=== PATIENT | female | born 1940 | race Caucasian/White ===

== ENCOUNTER 2017-08-29 09:13 | Outpatient (RCR) | payer MEDICARE, OTHER, SELFPAY ==
[2017-08-29 10:23] LABS: Prothrombin Time (Protime)PT. 41.1 SECONDS (11.7-14.9)
[2017-08-29 10:23] LABS: Absolute Lymphocyte Count 0.59 X10^3/ul (0.83-4.51); Absolute Neutrophil Count 4.7 X10^3/uL (2.0-7.7); Basophil# 0.02 X10^3/uL; Basophil% 0.3 % (0-1); Differential Indicated SCAN CRITERIA MET; Eosinophil# 0.14 X10^3/uL; Eosinophils% 2.2 % (0-5); Hematocrit 37.5 % (37-47); Hemoglobin 12.6 g/dl (12.0-15.0); Lymphocyte # 0.59 X10^3/ul (4.0); Lymphocyte % 9.2 % (19-41); Mean Corp Hgb Conc 33.6 g/gl (32-36); Mean Corpuscular Hgb 32.8 pg (27.0-32.0); Mean Corpuscular Volume 97.7 fL (81-99); Mean Platelet Vol. 10.1 fl (6.2-12.0); Monocyte# 0.95 X10^3/uL; Monocyte% 14.8 % (0-10); Neutrophil # 4.66 X10^3/uL (2.7-7.7); Neutrophil % 72.3 % (47-70); POSITIVE COUNT NO; POSITIVE DIFFERENTIAL YES; POSITIVE MORPHOLOGY NO; Platelet Count 262 K/mm3 (150-450); RBC Distribution Width SD 51.8 fl (35.1-43.9); Red Blood Count 3.84 M/mm3 (4.2-5.4); White Blood Count 6.4 K/mm3 (4.4-11.0)
[2017-08-29 10:26] LABS: International Normalized Ratio 4.5
[2017-08-29 10:46] LABS: ALB/GLOB Ratio 1.2 RATIO (0.9-2.4); AST(SGOT) 30 U/L (15-37); Alanine Aminotransfer ALT/SGPT 36 U/L (12-78); Albumin, Serum 3.7 g/dL (3.4-5.0); Alkaline Phosphatase 123 U/L (45-117); Anion Gap 5 (5-15); BUN 37 mg/dL (7-18); BUN/Creat Ratio 33.6 RATIO (10-20); Chloride 101 mmol/L (98-107); EST Glomerular Filtration Rate 51 mL/min (>60); Est Glom Filt Rate - Afr Amer 62 mL/min (>60); Globulin 3.1 g/dL (2.2-4.2); Glucose 129 mg/dL (70-110); Potassium 4.8 mmol/L (3.5-5.1); Protein, Total 6.8 g/dL (6.4-8.2); Sodium Level 134 mmol/L (136-145)
[2017-09-03 14:35] LABS: Prothrombin Time Fingerstick 28.5 SEC (11.9-14.4)
[2017-09-12 14:26] LABS: Prothrombin Time Fingerstick 39.5 SEC (11.9-14.4)
== END 2017-08-29 09:15 | disposition home or self-care (01) ==
LOC: MTLAB 09:13
PROVIDERS: Internal Medicine Rheumatology; Family Provider Family Medicine Geriatric Medicine; PCP Family Medicine Geriatric Medicine; Visit Provider Internal Medicine Cardiovascular Disease
DX: I48.91 Unspecified atrial fibrillation (principal); M06.4 Inflammatory polyarthropathy; M79.7 Fibromyalgia; M17.0 Bilateral primary osteoarthritis of knee; M70.62 Trochanteric bursitis, left hip; M21.40 Flat foot [pes planus] (acquired), unspecified foot; K21.0 Gastro-esophageal reflux disease with esophagitis; D49.3 Neoplasm of unspecified behavior of breast; I10 Essential (primary) hypertension; E78.5 Hyperlipidemia, unspecified; C43.62 Malignant melanoma of left upper limb, including shoulder; Z79.899 Other long term (current) drug therapy
CPT/HCPCS: 36415; 36416; 80053; 85025; 85610

== ENCOUNTER → 2017-09-11 11:37 | Outpatient (CLI) | payer MEDICARE, OTHER, SELFPAY ==
--- NOTE | 2017-09-11 11:40 | RAD_ITS ---
STUDY: X-RAY - CERVICAL SPINE REASON FOR EXAM: Female, 76 years old. Right-sided neck pain one month after fall. TECHNIQUE: 4 view(s) of the cervical spine were obtained. COMPARISON: None FINDINGS: There are degenerative changes of the anterior atlantoaxial articulation. Normal odontoid process. There is straightening of the normal cervical lordosis. There is an 18 degree levoscoliosis centered at C3-4. There is multi-level endplate spondylosis. There is multi-level degenerative disc disease with multilevel disc space narrowing. There are mild to moderate multilevel degenerative arthroses of the bilateral facet joints. The prevertebral soft tissue structures are unremarkable. There is no demonstrated fracture of the cervical spine. Minor retrolisthesis of C6 on C7. RAD/Cerv Spine 2 or 3 Views IMPRESSION: Multilevel degenerative changes of the cervical spine, as described. Electronically Signed: Raji Barnett MD at 15:12 EST , Service support ,
== END ==
PROVIDERS: Family Provider Family Medicine Geriatric Medicine; PCP Family Medicine Geriatric Medicine; Visit Provider Family Medicine Geriatric Medicine
DX: M48.02 Spinal stenosis, cervical region (principal)
CPT/HCPCS: 72040

== ENCOUNTER 2017-10-08 10:31 | Outpatient (RCR) | payer MEDICARE, OTHER, SELFPAY ==
[2017-10-08 12:32] LABS: Absolute Lymphocyte Count 0.72 X10^3/ul (0.83-4.51); Absolute Neutrophil Count 5.9 X10^3/uL (2.0-7.7); Basophil# 0.01 X10^3/uL; Basophil% 0.1 % (0-1); Eosinophil# 0.05 X10^3/uL; Eosinophils% 0.7 % (0-5); Hematocrit 35.5 % (37-47); Hemoglobin 11.7 g/dl (12.0-15.0); Lymphocyte # 0.72 X10^3/ul (4.0); Lymphocyte % 10.3 % (19-41); Mean Corpuscular Hgb 33.7 pg (27.0-32.0); Mean Corpuscular Volume 102.3 fL (81-99); Mean Platelet Vol. 10.8 fl (6.2-12.0); Monocyte# 0.36 X10^3/uL; Monocyte% 5.1 % (0-10); Neutrophil # 5.87 X10^3/uL (2.7-7.7); Neutrophil % 83.7 % (47-70); Platelet Count 163 K/mm3 (150-450); RBC Distribution Width CV 14.7 % (11.6-14.6); RBC Distribution Width SD 53.3 fl (35.1-43.9); Red Blood Count 3.47 M/mm3 (4.2-5.4)
[2017-10-08 12:36] LABS: POSITIVE COUNT NO; POSITIVE DIFFERENTIAL NO; POSITIVE MORPHOLOGY NO
[2017-10-08 12:43] LABS: International Normalized Ratio 2.8; Prothrombin Time (Protime)PT. 28.5 SECONDS (11.7-14.9)
[2017-10-08 12:45] LABS: Anion Gap 8 (5-15); BUN 32 mg/dL (7-18); BUN/Creat Ratio 28.6 RATIO (10-20); Calcium,Total 9.6 mg/dL (8.5-10.1); Chloride 98 mmol/L (98-107); Creatinine, Serum 1.12 mg/dL (0.55-1.02); EST Glomerular Filtration Rate 50 mL/min (>60); Est Glom Filt Rate - Afr Amer 61 mL/min (>60); Glucose 235 mg/dL (74-106); Potassium 4.8 mmol/L (3.5-5.1); Sodium Level 135 mmol/L (136-145)
== END 2017-10-08 16:27 | disposition home or self-care (01) ==
LOC: MTLAB 10:31
PROVIDERS: Internal Medicine Cardiovascular Disease; Family Provider Family Medicine Geriatric Medicine; PCP Family Medicine Geriatric Medicine; Visit Provider Family Medicine Geriatric Medicine
DX: I48.0 Paroxysmal atrial fibrillation (principal); Z79.899 Other long term (current) drug therapy; D64.9 Anemia, unspecified; E87.1 Hypo-osmolality and hyponatremia
CPT/HCPCS: 36415; 36416; 80048; 85025; 85610

== ENCOUNTER → 2017-11-04 13:45 | Outpatient (CLI) | payer MEDICARE, OTHER, SELFPAY ==
[2017-11-04 14:18] LABS: Absolute Lymphocyte Count 0.89 X10^3/ul (0.83-4.51); Absolute Neutrophil Count 4.1 X10^3/uL (2.0-7.7); Basophil# 0.02 X10^3/uL; Basophil% 0.3 % (0-1); Eosinophil# 0.11 X10^3/uL; Eosinophils% 1.9 % (0-5); Hematocrit 36.1 % (37-47); Hemoglobin 11.5 g/dl (12.0-15.0); Lymphocyte # 0.89 X10^3/ul (4.0); Lymphocyte % 15.4 % (19-41); Mean Corp Hgb Conc 31.9 g/gl (32-36); Mean Corpuscular Hgb 32.4 pg (27.0-32.0); Mean Corpuscular Volume 101.7 fL (81-99); Mean Platelet Vol. 10.7 fl (6.2-12.0); Monocyte# 0.63 X10^3/uL; Monocyte% 10.9 % (0-10); Neutrophil # 4.12 X10^3/uL (2.7-7.7); Neutrophil % 71.5 % (47-70); Platelet Count 179 K/mm3 (150-450); RBC Distribution Width CV 13.4 % (11.6-14.6); RBC Distribution Width SD 49.8 fl (35.1-43.9); Red Blood Count 3.55 M/mm3 (4.2-5.4); White Blood Count 5.8 K/mm3 (4.4-11.0)
[2017-11-04 14:19] LABS: POSITIVE COUNT NO; POSITIVE DIFFERENTIAL NO; POSITIVE MORPHOLOGY NO
[2017-11-04 14:41] LABS: ALB/GLOB Ratio 1.3 RATIO (0.9-2.4); AST(SGOT) 25 U/L (15-37); Alanine Aminotransfer ALT/SGPT 26 U/L (13-56); Albumin, Serum 3.7 g/dL (3.2-5.0); Alkaline Phosphatase 89 U/L (45-117); Anion Gap 5 (5-15); BUN 30 mg/dL (7-18); BUN/Creat Ratio 28.6 RATIO (10-20); Calcium,Total 8.9 mg/dL (8.5-10.1); Chloride 98 mmol/L (98-107); Creatinine, Serum 1.05 mg/dL (0.55-1.02); EST Glomerular Filtration Rate 54 mL/min (>60); Est Glom Filt Rate - Afr Amer 65 mL/min (>60); Globulin 2.8 g/dL (2.2-4.2); Glucose 118 mg/dL (74-106); Potassium 4.5 mmol/L (3.5-5.1); Protein, Total 6.5 g/dL (6.4-8.2); Sodium Level 134 mmol/L (136-145); Thyroid Stim Hormone (TSH) 4.98 uIU/mL (0.358-3.74)
[2017-11-05 08:31] LABS: Vitamin D,25 Hydroxy 58.2 ng/mL (29.95-100.01)
== END ==
PROVIDERS: Family Provider Family Medicine Geriatric Medicine; PCP Family Medicine Geriatric Medicine; Visit Provider Family Medicine Geriatric Medicine
DX: E55.9 Vitamin D deficiency, unspecified (principal); I10 Essential (primary) hypertension
CPT/HCPCS: 36415; 80053; 82306; 84443; 85025

== ENCOUNTER 2017-11-07 13:26 | Outpatient (RCR) | payer MEDICARE, OTHER, SELFPAY ==
[2017-10-31 15:00] LABS: Prothrombin Time Fingerstick 48.6 SEC (11.9-14.4)
[2017-10-31 16:26] LABS: Prothrombin Time (Protime)PT. 37.6 SECONDS (11.7-14.9)
[2017-10-31 16:29] LABS: International Normalized Ratio 3.8
[2017-11-07 13:45] LABS: Prothrombin Time Fingerstick 33.1 SEC (11.9-14.4)
== END 2017-11-07 14:00 | disposition home or self-care (01) ==
LOC: MTLAB 13:26
PROVIDERS: Family Provider Family Medicine Geriatric Medicine; PCP Family Medicine Geriatric Medicine; Visit Provider Internal Medicine Cardiovascular Disease
DX: I48.0 Paroxysmal atrial fibrillation (principal); Z79.899 Other long term (current) drug therapy
CPT/HCPCS: 36415; 36416; 85610

== ENCOUNTER 2017-12-12 13:53 | Outpatient (RCR) | payer MEDICARE, OTHER, SELFPAY ==
[2017-11-21 13:36] LABS: Prothrombin Time Fingerstick 34.3 SEC (11.9-14.4)
[2017-12-12 15:54] LABS: Absolute Neutrophil Count 4.8 X10^3/uL (2.0-7.7); Basophil# 0.02 X10^3/uL; Basophil% 0.3 % (0-1); Eosinophil# 0.14 X10^3/uL; Eosinophils% 2.1 % (0-5); Hematocrit 41.1 % (37-47); Hemoglobin 13.2 g/dl (12.0-15.0); Lymphocyte % 14.8 % (19-41); Mean Corp Hgb Conc 32.1 g/gl (32-36); Mean Corpuscular Hgb 31.7 pg (27.0-32.0); Mean Corpuscular Volume 98.6 fL (81-99); Mean Platelet Vol. 11.3 fl (6.2-12.0); Monocyte# 0.76 X10^3/uL; Monocyte% 11.3 % (0-10); Neutrophil # 4.82 X10^3/uL (2.7-7.7); Neutrophil % 71.4 % (47-70); Platelet Count 189 K/mm3 (150-450); RBC Distribution Width CV 12.5 % (11.6-14.6); Red Blood Count 4.17 M/mm3 (4.2-5.4); White Blood Count 6.8 K/mm3 (4.4-11.0)
[2017-12-12 15:57] LABS: ALB/GLOB Ratio 1.3 RATIO (0.9-2.4); AST(SGOT) 38 U/L (15-37); Alanine Aminotransfer ALT/SGPT 36 U/L (13-56); Albumin, Serum 3.9 g/dL (3.2-5.0); Alkaline Phosphatase 126 U/L (45-117); Anion Gap 8 (5-15); BUN 25 mg/dL (7-18); BUN/Creat Ratio 21.7 RATIO (10-20); Calcium,Total 8.9 mg/dL (8.5-10.1); Chloride 102 mmol/L (98-107); Creatinine, Serum 1.15 mg/dL (0.55-1.02); EST Glomerular Filtration Rate 49 mL/min (>60); Est Glom Filt Rate - Afr Amer 59 mL/min (>60); Globulin 3.1 g/dL (2.2-4.2); Glucose 155 mg/dL (74-106); Potassium 4.4 mmol/L (3.5-5.1); Sodium Level 139 mmol/L (136-145)
[2017-12-12 16:03] LABS: POSITIVE COUNT NO; POSITIVE DIFFERENTIAL NO; POSITIVE MORPHOLOGY NO
[2017-12-12 16:29] LABS: International Normalized Ratio 3.1; Prothrombin Time (Protime)PT. 32.2 SECONDS (11.7-14.9)
== END 2017-12-12 14:00 | disposition home or self-care (01) ==
LOC: MTLAB 13:53
PROVIDERS: Family Provider Family Medicine Geriatric Medicine; PCP Family Medicine Geriatric Medicine; Visit Provider Internal Medicine Cardiovascular Disease
DX: I48.0 Paroxysmal atrial fibrillation (principal); Z79.899 Other long term (current) drug therapy
CPT/HCPCS: 36415; 36416; 80053; 85025; 85610

== ENCOUNTER 2018-01-09 14:14 | Outpatient (RCR) | payer MEDICARE, OTHER, SELFPAY ==
[2018-01-09 14:31] LABS: Prothrombin Time Fingerstick 34.8 SEC (11.9-14.4)
== END 2018-01-09 15:00 | disposition home or self-care (01) ==
LOC: MTLAB 14:14
PROVIDERS: Family Provider Family Medicine Geriatric Medicine; PCP Family Medicine Geriatric Medicine; Visit Provider Internal Medicine Cardiovascular Disease
DX: I48.91 Unspecified atrial fibrillation (principal); Z79.01 Long term (current) use of anticoagulants
CPT/HCPCS: 36416; 85610

== ENCOUNTER 2018-02-09 13:13 | Outpatient (RCR) | payer MEDICARE, OTHER, SELFPAY | END 2018-02-09 14:00 | disposition home or self-care (01) | LOC: MTLAB 13:13 | PROVIDERS: Family Provider Family Medicine Geriatric Medicine; PCP Family Medicine Geriatric Medicine; Visit Provider Internal Medicine Cardiovascular Disease | DX: I48.91 Unspecified atrial fibrillation (principal); Z79.899 Other long term (current) drug therapy | CPT/HCPCS: 36416; 85610 ==

== ENCOUNTER → 2018-02-13 10:15 | Outpatient (CLI) | payer MEDICARE, OTHER, SELFPAY ==
[2018-02-13 12:34] LABS: Absolute Lymphocyte Count 0.54 X10^3/ul (0.83-4.51); Absolute Neutrophil Count 4.9 X10^3/uL (2.0-7.7); Basophil# 0.02 X10^3/uL; Basophil% 0.3 % (0-1); Eosinophil# 0.06 X10^3/uL; Hematocrit 39.9 % (37-47); Hemoglobin 12.8 g/dl (12.0-15.0); Lymphocyte # 0.54 X10^3/ul (4.0); Lymphocyte % 8.6 % (19-41); Mean Corp Hgb Conc 32.1 g/gl (32-36); Mean Corpuscular Hgb 29.7 pg (27.0-32.0); Mean Corpuscular Volume 92.6 fL (81-99); Mean Platelet Vol. 11.2 fl (6.2-12.0); Monocyte# 0.72 X10^3/uL; Monocyte% 11.5 % (0-10); Neutrophil # 4.91 X10^3/uL (2.7-7.7); Neutrophil % 78.4 % (47-70); Platelet Count 120 K/mm3 (150-450); RBC Distribution Width CV 13.7 % (11.6-14.6); RBC Distribution Width SD 45.4 fl (35.1-43.9); Red Blood Count 4.31 M/mm3 (4.2-5.4); White Blood Count 6.3 K/mm3 (4.4-11.0)
[2018-02-13 12:38] LABS: Differential Indicated SCAN CRITERIA MET; POSITIVE COUNT NO; POSITIVE DIFFERENTIAL YES; POSITIVE MORPHOLOGY NO
[2018-02-13 12:45] LABS: ALB/GLOB Ratio 1.2 RATIO (0.9-2.4); AST(SGOT) 28 U/L (15-37); Alanine Aminotransfer ALT/SGPT 33 U/L (13-56); Albumin, Serum 3.7 g/dL (3.2-5.0); Alkaline Phosphatase 119 U/L (45-117); Anion Gap 7 (5-15); BUN 24 mg/dL (7-18); BUN/Creat Ratio 24.1 RATIO (10-20); Calcium,Total 9.5 mg/dL (8.5-10.1); Chloride 98 mmol/L (98-107); EST Glomerular Filtration Rate 57 mL/min (>60); Est Glom Filt Rate - Afr Amer 69 mL/min (>60); Globulin 3.1 g/dL (2.2-4.2); Glucose 95 mg/dL (74-106); Potassium 4.4 mmol/L (3.5-5.1); Protein, Total 6.8 g/dL (6.4-8.2); Sodium Level 136 mmol/L (136-145)
[2018-02-13 13:00] LABS: International Normalized Ratio 3.1
== END ==
PROVIDERS: Internal Medicine Cardiovascular Disease; Family Provider Family Medicine Geriatric Medicine; PCP Family Medicine Geriatric Medicine; Visit Provider Internal Medicine Rheumatology
DX: M06.4 Inflammatory polyarthropathy (principal); Z79.899 Other long term (current) drug therapy; M79.7 Fibromyalgia; M17.0 Bilateral primary osteoarthritis of knee; M70.62 Trochanteric bursitis, left hip; K21.0 Gastro-esophageal reflux disease with esophagitis; M21.40 Flat foot [pes planus] (acquired), unspecified foot; I48.91 Unspecified atrial fibrillation; D49.3 Neoplasm of unspecified behavior of breast; I10 Essential (primary) hypertension; E78.5 Hyperlipidemia, unspecified; C43.62 Malignant melanoma of left upper limb, including shoulder
CPT/HCPCS: 36415; 80053; 85025; 85610

== ENCOUNTER 2018-02-20 14:19 | Outpatient (RCR) | payer MEDICARE, OTHER, SELFPAY ==
[2018-02-20 16:03] LABS: Prothrombin Time (Protime)PT. 36.5 SECONDS (11.7-14.9)
[2018-02-20 16:16] LABS: International Normalized Ratio 3.6
== END 2018-02-20 16:00 ==
LOC: MTLAB 14:19
PROVIDERS: Family Provider Family Medicine Geriatric Medicine; PCP Family Medicine Geriatric Medicine; Visit Provider Internal Medicine Cardiovascular Disease
DX: I48.91 Unspecified atrial fibrillation (principal); Z79.899 Other long term (current) drug therapy
CPT/HCPCS: 36415; 36416; 85610

== ENCOUNTER → 2018-03-20 13:57 | Outpatient (CLI) | payer MEDICARE, OTHER, SELFPAY ==
[2018-03-20 16:10] LABS: International Normalized Ratio 3.4; Prothrombin Time (Protime)PT. 34.4 SECONDS (11.7-14.9)
[2018-03-20 16:27] LABS: Thyroid Stim Hormone (TSH) 6.83 uIU/mL (0.358-3.74)
== END ==
PROVIDERS: Family Provider Family Medicine Geriatric Medicine; PCP Family Medicine Geriatric Medicine; Visit Provider Family Medicine Geriatric Medicine
DX: E03.9 Hypothyroidism, unspecified (principal); I48.91 Unspecified atrial fibrillation; Z79.01 Long term (current) use of anticoagulants
CPT/HCPCS: 36415; 84443; 85610

== ENCOUNTER 2018-04-02 00:10 | Observation (INO) | payer MEDICARE, OTHER, SELFPAY ==
[2018-04-02] VITALS (8 sets, daily range): BP systolic 118–136; BP diastolic 59–69; PULSE 70–91; RESP 15–22; TEMP 36.7–37.1; O2SAT 98–99; BMI 21.4; BMI 21.2; BMI 21.3
--- NOTE | 2018-04-02 00:42 | ED.VISSUMM ---
- ER Visit Summary Date of Service: 04/02/18 Chief Complaint: [] Chest pain and back pain History of Present Illness: The patient is a 77 F complaining of chest pain and back pain that started approximately 2 and half hours ago at rest. Is a sharp pain moderate severity. No home treatment. Last stress test a year ago. She feels it in the center of her chest and through her body and between her shoulder blades. She has never had aortic dissection. She has a history of atrial fib and has an ICD pacemaker. Her mitral valve has been replaced. She does have chronic CHF. She has never had a heart attack. Last stress test was a year ago. Physical Examination: [] Vital signs reviewed General: Well-nourished well-developed Head: Normocephalic atraumatic Eyes: Pupils equal round and reactive to light extraocular movements intact ENT: TMs clear no hemotympanum no trauma Neck: Nontender full range of motion Cardiovascular: Regular rate rhythm no murmurs normal S1-S2 Respiratory: No distress clear to auscultation bilaterally chest nontender Abdomen: Soft nontender nondistended normal bowel sounds no masses Back: Nontender no CVA tenderness Extremities: Nontender active range of motion ?4 extremities no trauma Skin: Normal color no trauma Neuro alert oriented cranial nerves II through XII intact normal strength sensation reflexes Test Results: [] Emergency Department Course and Treatment: [] EKG shows circular paced rhythm at a rate of 85. Lab work and chest x-ray obtained. Patient given oral aspirin and morphine for her symptoms. This did help her pain significantly. She needed a second dose of morphine however. CBC shows a white count of 14.5. Chemistries normal except sodium 132, BUN 37, glucose 208. INR 3.1 therapeutic. Troponin -0.02. Chest x-ray shows nothing acute. At this time patient has chest pain. I feel she should be admitted for further evaluation and treatment of the above. I have a low suspicion for dissection. The patient stated she cannot get IV dye. I do not feel she needs an urgent transesophageal echo. This will be discussed with the hospitalist and she will be admitted. Treatment Plan: [] Disposition: [] Impression: [] Chest pain with radiation to the back This note was generated with [employer] dictation software. It may contain incorrect words, spelling, and punctuation that were not noted in review of the chart prior to signing ED Disposition - Plan for ED Patient: Chief Complaint: Chest Pain Referrals: Romie Landeros Chi, MD [Primary Care Provider] -
[2018-04-02] MEDS: Morphine 4 MG/ML Syringe IV ×2 (00:46→01:15)
[2018-04-02] MEDS: Aspirin 81 MG TAB.CHEW 324 MG PO (00:46)
[2018-04-02 00:49] LABS: Absolute Lymphocyte Count 1.91 X10^3/ul (0.83-4.51); Absolute Neutrophil Count 10.8 X10^3/uL (2.0-7.7); Eosinophil# 0.14 X10^3/uL; Hematocrit 42.6 % (37-47); Hemoglobin 14.4 g/dl (12.0-15.0); Lymphocyte # 1.91 X10^3/ul (4.0); Lymphocyte % 14.1 % (19-41); Mean Corp Hgb Conc 33.8 g/gl (32-36); Mean Corpuscular Hgb 29.8 pg (27.0-32.0); Mean Corpuscular Volume 88.2 fL (81-99); Mean Platelet Vol. 11.2 fl (6.2-12.0); Monocyte# 0.58 X10^3/uL; Monocyte% 4.3 % (0-10); Neutrophil # 10.82 X10^3/uL (2.7-7.7); Neutrophil % 80.2 % (47-70); Platelet Count 199 K/mm3 (150-450); RBC Distribution Width CV 14.9 % (11.6-14.6); RBC Distribution Width SD 47.7 fl (35.1-43.9); Red Blood Count 4.83 M/mm3 (4.2-5.4); White Blood Count 13.5 K/mm3 (4.4-11.0)
[2018-04-02 00:50] LABS: POSITIVE COUNT NO; POSITIVE DIFFERENTIAL NO; POSITIVE MORPHOLOGY NO
[2018-04-02 01:30] LABS: International Normalized Ratio 3.1; Prothrombin Time (Protime)PT. 32.3 SECONDS (11.7-14.9)
[2018-04-02 01:34] LABS: Anion Gap 4 (5-15); BUN 37 mg/dL (7-18); BUN/Creat Ratio 36.6 RATIO (10-20); Calcium,Total 9.1 mg/dL (8.5-10.1); Chloride 98 mmol/L (98-107); Creatinine, Serum 1.01 mg/dL (0.55-1.02); EST Glomerular Filtration Rate 56 mL/min (>60); Est Glom Filt Rate - Afr Amer 68 mL/min (>60); Estimated Creatinine Clearance 36.89 ml/min; Glucose 208 mg/dL (74-106); Potassium 5.1 mmol/L (3.5-5.1); Sodium Level 132 mmol/L (136-145)
--- NOTE | 2018-04-02 02:33 | NURSING ---
0225 Called Per ED charge nurse, ok for patient to come to floor.
--- NOTE | 2018-04-02 02:45 | PCM.HP.STD ---
Problem List (1) Chest pain Status: Acute (2) Atrial fibrillation Status: Chronic (3) Atrial flutter Status: Chronic (4) Dilated cardiomyopathy Status: Chronic History of Present Illness Date of Admission: 04/02/18 Chief Complaint: Chest pain The patient is a 77 year old F with a significant history of former tobacco use; hypertension, atrial fibrillation/atrial flutter status post ablation; permanent pacemaker with defibrillation; mechanical mitral valve; chronic anticoagulation with Coumadin; systolic heart failure with last ejection fraction 20%; left breast cancer x2 status post mastectomy,muscle removal and reconstruction, and radiation; who presents with progressively worsening chest pain while at rest. Her chest pain started about 1 hour prior to arrival at emergency department. Her chest pain radiated to her back. She denied any diaphoresis, nausea or vomiting. The emergency department doctor wanted to do a CT scan of her chest with contrast but because of a reported allergy to contrast; CT scan of the chest could not be done. Patient reports that she has seizures and low blood pressure with IV contrast. Patient had a stress test last year and it was unremarkable. She follows up with Dr. Hayden. Past Medical History Past Medical History (Chronic Problems): Chronic Problems (Last Reviewed 02/04/18 @ 15:15 by Adrianne Hoover) Chronic systolic congestive heart failure (Chronic) Atrial fibrillation (Chronic) Atrial flutter (Chronic) Dilated cardiomyopathy (Chronic) Presence of implantable cardioverter-defibrillator (ICD) (Chronic) History of mitral valve replacement (Chronic ~06/1997) 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92 Dilated cardiomyopathy (Chronic) I42.0 History of mitral valve replacement (Chronic) Onset Date: ~06/1997 Z98.890, Z95.2 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) I47.2 USP current use of 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) Z79.01 Anxiety states (Chronic) F41.1 Cardiac pacemaker (Chronic) Z95.0 Type II diabetes mellitus, uncontrolled (Chronic) E11.65 History of esophageal reflux (Chronic) Z87.19 History of mitral valve disorder (Chronic) Z86.79 HLD (hyperlipidemia) (Chronic) E78.5 HTN (hypertension) (Chronic) I10 Fibromyalgia M79.7 History of breast cancer Z85.3 Allergies HERMILO Inhibitors Allergy (Verified 04/02/18 00:13) Unknown amiodarone Allergy (Verified 04/02/18 00:13) Unknown Iodinated Contrast- Oral and IV Dye [CONTRASTS] Adverse Reaction (Verified 04/02/18 00:13) I JUMP AROUND ON THE TABLE iodine Adverse Reaction (Verified 04/02/18 00:13) I JUMP AND FLOP AROUND ON THE TABLE Home Medications: Ambulatory Orders Medication Instructions Recorded Carvedilol [Coreg] 25 mg PO BID 03/28/15 Furosemide [Lasix] 40 mg PO DAILY 03/28/15 Lorazepam [Ativan] 0.5 mg PO DAILY PRN PRN 03/28/15 traMADol [Ultram (G)] 50 mg PO BID PRN 03/28/15 Aspirin [Aspirin, Baby] 81 mg PO DAILY@0800 08/01/17 Multivitamin [Daily Multiple 1 ea PO DAILY 08/01/17 Vitamin] Spironolactone 25 mg PO DAILY 08/01/17 calcium phosphate-vitamin D3 250 1 tab PO DAILY ea 08/04/17 mg calcium-500 unit chewable tablet thyroid (pork) 15 mg tablet 45 mg PO DAILY 08/04/17 pravastatin 20 mg tablet 20 mg PO QHS #90 tab 08/25/17 folic acid 1 mg tablet 1 mg PO DAILY tab 02/04/18 potassium chloride ER 10 mEq 10 meq PO BID tab 02/04/18 tablet,extended release warfarin 5 mg tablet 5 mg PO .COMPLEX #90 tab 03/03/18 Surgical History: Surgical History (Last Reviewed 04/02/18 @ 07:43 by Williams Yousif MD) Presence of implantable cardioverter-defibrillator (ICD) (Chronic) Z95.810 History of breast implant Z98.82 History of knee surgery Z98.890 History of mastectomy Z90.10 Left History of tonsillectomy and adenoidectomy Z98.890 Surgical History: pacemaker implantation Lives: Spouse/ Significant Other Smoking Status: Former smoker Tobacco Use: Non-smoker Alcohol: Rare Drugs: None - *Family History Maternal Family History: Family History (Last Updated 04/02/18 @ 03:50 by Williams Yousif MD) Father Hypertension Cancer Mother Cancer Hypertension Review of Systems Constitutional: Denies: Chills, Fever, Weight Change Eyes: Denies: Pain HEENT: Denies: Head Aches, Sinus Congestion, Sinus Drainage Cardiovascular: Reports: Chest Pain Respiratory: Denies: Cough, Shortness of breath at rest, Sputum production Gastrointestinal: Denies: Abdominal Pain, Nausea, Vomiting Genitourinary: Denies: Dysuria Musculoskeletal: Reports: Back Pain Skin: Denies: Rash, Wounds Neurological: Denies: Numbness, Tingling, Focal weakness Psychiatric: Denies: Anxiety, Depression, Homicidal Ideations, Suicidal Ideations Hematologic/ Lymphatic: Denies: Easy Bruising, Easy Bleeding VTE Information - Inpt Only VTE Present on Admission: No VTE Mechan Device Prophylaxis: None VTE Pharm Prophylaxis ordered?: No Reason prophylaxis not ordered:: Treatment Not Indicated - Already on anticoagulation with Coumadin for a permanent mechanical mitral valve and atrial fibrillation Patient Problems: Active and Suspected Problems (Last Reviewed 02/04/18 @ 15:15 by Adrianne Hoover) Chest pain (Acute) - Physical Exam General: Alert, Oriented x3, Cooperative HEENT: Atraumatic, PERRLA, EOMI, Normocephalic Neck: Supple, No JVD, Negative Carotid Bruits Lungs: Clear to auscultation, Normal air movement, - - Pacemaker-like object in the right upper chest. Cardiovascular: Regular rate, - - Mechanical click sound Abdomen: Bowel Sounds Present, Soft, Non Tender Extremities: No edema, Capillary Refill Less than 3 Seconds Skin: No rashes, No breakdown Musculoskeletal: No Tenderness to Palpation of Joints or Extremities Neurological: Cranial nerves II-XII grossly intact Psych/Mental Status: Normal Affect, Appropriate Vital Signs Temp Pulse Resp BP Pulse Ox 98.1 F 91 22 H 136/69 H 99 04/02/18 00:11 04/02/18 00:11 04/02/18 00:11 04/02/18 00:11 04/02/18 00:43 Assessment/Plan All Active Problems (Last Reviewed 02/04/18 @ 15:15 by Adrianne Hoover) Chest pain (Acute) Atrial dysrhythmia (Acute) Ventricular tachycardia (Acute) The patient is a 77 year old F with a significant history of former tobacco use; hypertension, atrial fibrillation/atrial flutter status post ablation; permanent pacemaker with defibrillation; mechanical mitral valve; chronic anticoagulation with Coumadin; systolic heart failure with last ejection fraction 20%; left breast cancer x2 status post mastectomy,muscle removal and reconstruction, and radiation; who presents with progressively worsening chest pain while at rest. Chest pain Troponin at emergency department was negative. EKG showed paced rhythm. Patient received aspirin 324mg and morphine 8 mg at emergency department Aspirin 81mg daily. Home pravastatin continued Nitroglycerin sublingual and morphine IV as needed Serial cardiac enzymes ordered. Because of her many risk factors of cardiac disease will consult cardiology for further stratification and management. Coreg continued Systolic heart failure Coreg and spironolactone continue Lasix continued. Home potassium held since her potassium was 5.1 on admission. Repeat potassium ordered for noon. Osteoarthritis Tramadol continued Atrial fibrillation Coreg and Coumadin Daily PT/INR Mechanical Mitral valve Coumadin continued Hypertension Spironolactone and Coreg continued as above Hypothyroidism Carriere thyroid continued Code Visit Inpatient E&M: 70110 Init Hosp L3
[2018-04-02] MEDS: traMADol 50 MG Tablet PO (05:33)
--- NOTE | 2018-04-02 09:26 | PCM.CONS.C ---
Problem List (1) Chest pain Status: Acute (2) Dilated cardiomyopathy Status: Chronic (3) Chronic systolic congestive heart failure Status: Chronic (4) History of mitral valve replacement Status: Chronic Comment: [facility] Driss #27mm 06/1997 (5) Atrial dysrhythmia Status: Acute (6) Ventricular tachycardia Status: Acute (7) Presence of implantable cardioverter-defibrillator (ICD) Status: Chronic (8) HLD (hyperlipidemia) Status: Chronic Qualifiers: Hyperlipidemia type: unspecified Qualified Code(s): E78.5 - Hyperlipidemia, unspecified (9) HTN (hypertension) Status: Chronic Qualifiers: Hypertension type: essential hypertension Qualified Code(s): I10 - Essential (primary) hypertension (10) Type II diabetes mellitus, uncontrolled Status: Chronic Reason for Consult Date of Consultation: 04/02/18 History of Present Illness: The patient is a 77 year old white female with a past medical history of a non-CAD related cardiomyopathy, chronic systolic CHF, status post mitral valve replacement-mechanical, atrial dysrhythmia, ventricular tachycardia, ICD, hyperlipidemia, hypertension, and diabetes mellitus who is referred for evaluation of chest pain. She states yesterday evening, when preparing for bed, she felt a epigastric/lower sternal chest discomfort which appeared to radiate towards her back. It did not radiate towards her neck, jaw, or upper extremities. She denied any acute shortness of breath or dyspnea. She denied any associated nausea, emesis, or diaphoresis. She states she felt warm. Her brought her to the emergency department for further evaluation. She states she was evaluated, treated with morphine sulfate, and her discomfort subsequently dissipated. She did have troponin I levels performed. They were indeterminate. Her ECGs have demonstrated a combination of atrial paced rhythm with consideration for voltage criteria for LVH as well as nonspecific ST and T-wave changes versus an underlying AV paced rhythm. She did have a chest x-ray performed. She had postsurgical changes. There did not appear to be any acute changes. Per radiology she was noted to have what was referred to as airspace disease and findings compatible with COPD (please see official report). [] Past Medical History Allergies/Adverse Reactions: Allergies HERMILO Inhibitors Allergy (Verified 04/02/18 00:13) Unknown amiodarone Allergy (Verified 04/02/18 00:13) Unknown Iodinated Contrast- Oral and IV Dye [CONTRASTS] Adverse Reaction (Verified 04/02/18 00:13) I JUMP AROUND ON THE TABLE iodine Adverse Reaction (Verified 04/02/18 00:13) I JUMP AND FLOP AROUND ON THE TABLE Home Medications: Ambulatory Orders Medication Instructions Recorded Carvedilol [Coreg] 25 mg PO BID 03/28/15 Furosemide [Lasix] 40 mg PO DAILY 03/28/15 Lorazepam [Ativan] 0.5 mg PO DAILY PRN PRN 03/28/15 traMADol [Ultram (G)] 50 mg PO BID PRN 03/28/15 Aspirin [Aspirin, Baby] 81 mg PO DAILY@0800 08/01/17 Multivitamin [Daily Multiple 1 ea PO DAILY 08/01/17 Vitamin] Spironolactone 25 mg PO DAILY 08/01/17 calcium phosphate-vitamin D3 250 1 tab PO DAILY ea 08/04/17 mg calcium-500 unit chewable tablet thyroid (pork) 15 mg tablet 45 mg PO DAILY 08/04/17 pravastatin 20 mg tablet 20 mg PO QHS #90 tab 08/25/17 folic acid 1 mg tablet 1 mg PO DAILY tab 02/04/18 potassium chloride ER 10 mEq 10 meq PO BID tab 02/04/18 tablet,extended release warfarin 5 mg tablet 5 mg PO .COMPLEX #90 tab 03/03/18 Past Medical History (Chronic Problems): Chronic Problems (Last Reviewed 04/02/18 @ 07:43 by Williams Yousif MD) Chronic systolic congestive heart failure (Chronic) Atrial fibrillation (Chronic) Atrial flutter (Chronic) Dilated cardiomyopathy (Chronic) Presence of implantable cardioverter-defibrillator (ICD) (Chronic) History of mitral valve replacement (Chronic ~06/1997) 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) Anxiety states (Chronic) Cardiac pacemaker (Chronic) Type II diabetes mellitus, uncontrolled (Chronic) History of esophageal reflux (Chronic) History of mitral valve disorder (Chronic) HLD (hyperlipidemia) (Chronic) HTN (hypertension) (Chronic) Surgical History: pacemaker implantation - *Family History Maternal Family History: Family History (Last Updated 04/02/18 @ 03:50 by Williams Yousif MD) Father Hypertension Cancer Mother Cancer Hypertension Lives: Spouse/ Significant Other Smoking Status: Former smoker Tobacco Use: Non-smoker Alcohol: Rare Drugs: None Review of Systems - Review of Systems General: Denies: Fever, Night Sweats, Fatigue Cardiovascular: Reports: Chest Discomfort, Chest Discomfort at Rest, Palpitations. Denies: Shortness of Breath, Orthopnea, PND, Peripheral Edema, Lightheadedness, Dizziness, Near Syncope, Syncope Respiratory: Denies: Cough, Sputum Production, Hemoptysis Gastrointestinal: Denies: Hematemesis, Hematochezia, Melena Genitourinary: Denies: Dysuria, Hematuria Skin: Denies: Rash Subjectve: This is a 77-year-old white female who appears to be resting comfortably at the moment in no acute distress. Objective: Vital Signs Temp Pulse Resp BP Pulse Ox 98.7 F 91 16 118/60 98 04/02/18 08:50 04/02/18 08:50 04/02/18 08:50 04/02/18 08:50 04/02/18 08:50 Oxygen Delivery Method Room Air Weight: 116 lb 3.2 oz Body Mass Index (BMI) 21.2 Intake and Output for Last 24 Hours 03/31/18 04/01/18 04/02/18 23:59 23:59 23:59 Intake Total 0 / 0 Balance 0 / 0 General: Awake, Alert, Oriented x 3, Cooperative, No Acute Distress HEENT: Atraumatic, Normocephalic, PERRL, EOMI, Sclera Non Icteric Oral: Moist Mucosa Neck: Supple, Good ROM, No JVD Chest Wall: Midline Sternotomy Incision Lungs: Clear to auscultation Cardiovascular: Regular Rhythm, Normal S2, [place] Prosthetic S1 Vascular: No Carotid Bruits Abdomen: Bowel Sounds Present, Soft, Non Tender Extremities: No Cyanosis, No Clubbing, No edema Psych/Mental Status: Appropriate, Normal Affect 04/02/18 04:34: Troponin I 0.031 04/02/18 06:55: Troponin I 0.028 Rhythm: Atrial paced rhythm; AV paced rhythm EKG: Atrial paced rhythm; consider voltage criteria for LVH; nonspecific ST and T-wave abnormality ECHO: 06/17/2017: Left ventricle: Dilated: Severe global left ventricular systolic dysfunction: Estimated LVEF 20%: Mild global right ventricular systolic dysfunction: Moderate left atrial enlargement: Stable appearing mechanical mitral valve apparatus: Moderate TR: Mild diffuse aortic valve thickening with trivial AI: Estimated RV systolic pressure of 33 mmHg: ICD wires in the right atrium and right ventricle Stress Test: 05/01/2017: Pharmacologic stress nuclear imaging study: Findings compatible with soft tissue attenuation/artifact and/or detraction secondary to extracardiac/gastrointestinal tracer uptake along with the effects of an underlying electronic ventricular paced rhythm with an area of previous myocardial injury/infarction cannot necessarily be excluded with no myocardial perfusion changes consider diagnostic for stress-induced myocardial ischemia with a gated LVEF of 25% Cardiac Cath: 08/21/2004: [facility]: Elevated left ventricular end-diastolic pressure: Global left ventricular systolic dysfunction with an estimated LVEF of 35-40%: Left main coronary artery normal: LAD status post first diagonal branch with 10% tubular type stenosis: First diagonal branch with ostial 10% tubular type stenosis: LCx tortuous and angiographically normal: RCA with diffuse 10% minimal luminal irregularities: Mitral valve demonstrating a stable appearing [place] mitral valve apparatus without obvious leaflet restriction with notation of trace MR following PVCs and left ventriculogram Electrophysiology study: 08/22/2004: [facility]: Inducible ventricular tachycardia with poor hemodynamic tolerance ICD: [employer] Energen ICD IS-1/DF-1 model number E143 serial #[id number] implanted on 03/31/2015 as a dual-chamber implantable defibrillator Open heart surgery report: [facility]: 06/21/1997: 27 mm [place] mechanical mitral valve CXR: Please see official report Assessment/Plan 1. Chest pain The patient experienced chest discomfort/back discomfort. The etiology is unclear at this time. There are concerns as to whether this represents cardiovascular disease with underlying CAD, based upon her clinical course and indeterminate troponin I levels, versus a non-CAD component based upon her underlying cardiomyopathy, etc., versus a noncardiovascular issue. At the present time she is being monitored. Her cardiac enzymes, rhythm, and electrocardiogram are being followed. She is undergoing repeat pharmacologic stress nuclear imaging study to evaluate for any obvious significant change compared to her previous study that would lead for the need for interruption of her anticoagulation therapy and subsequent repeat diagnostic cardiac catheterization. She needs to be monitored for any noncardiovascular issues that may explain her discomfort as well. This could include the need for a chest CT scan to look for other etiologies of her chest and and back discomfort. 2. Non-CAD related cardiomyopathy The patient has a non-CAD related cardiomyopathy. She has been evaluated noninvasively and invasively in the past. She has been treated medically. She has also received ICD therapy over time. She will continue evaluation and care as deemed appropriate. 3. Chronic systolic CHF The patient does not appear to have any acute on chronic systolic CHF issues at the moment. She will continue to be monitored for any changes. Her cardiovascular status will be reassessed as noted above. She will continue medical therapy in the interim. 4. Atrial and ventricular dysrhythmias The patient has had underlying atrial and ventricular dysrhythmias. From an atrial standpoint there have been concerns of fibrillation/flutter. She has been evaluated by electrophysiology. She has been treated medically. From a ventricular standpoint she has had inducible ventricular tachycardia. Again she has been treated medically. She does have an ICD in place. 5. ICD She does have an ICD in place. She states it did not discharge during her discomfort. It can be reassessed as needed. 6. Hyperlipidemia She will continue medical management as tolerated. 7. Hypertension Her blood pressures will be followed. Her medications can be adjusted as needed. 8. Diabetes mellitus She will need to continue under evaluation care per her primary care physicians for this. The above was discussed and reviewed with the patient. This note was generated with [employer] dictation software. It may contain incorrect words, spelling, and punctuation that were not noted in checking the note before signing.
--- NOTE | 2018-04-02 11:10 | PN_ITS ---
Patient Problems: Active and Suspected Problems (Last Reviewed 04/02/18 @ 07:43 by Williams Yousif MD) Chest pain (Acute) Subjective: Patient seen and examined. Denies further chest pain. States she had palpitations during stress test which have since resolved. No other current complaints. - Physical Exam General: Alert, Oriented x3, Cooperative HEENT: Atraumatic, PERRLA, EOMI, Normocephalic Neck: Supple, No JVD, Negative Carotid Bruits Lungs: Clear to auscultation, Normal air movement Cardiovascular: Regular rate, Regular Rhythm, Normal S1, Normal S2, Murmur - Click Abdomen: Bowel Sounds Present, Soft, Non Tender, Non-Distended Extremities: No clubbing, No cyanosis, No edema, Capillary Refill Less than 3 Seconds Skin: No rashes, No breakdown Musculoskeletal: No Tenderness to Palpation of Joints or Extremities Neurological: Cranial nerves II-XII grossly intact, Neuro grossly intact Psych/Mental Status: Normal Affect, Appropriate Vital Signs Temp Pulse Resp BP Pulse Ox 98.7 F 91 16 118/60 98 04/02/18 08:50 04/02/18 08:50 04/02/18 08:50 04/02/18 08:50 04/02/18 08:50 Oxygen Delivery Method Room Air Weight: 116 lb 3.2 oz Body Mass Index (BMI) 21.2 Intake and Output for Last 24 Hours 03/31/18 04/01/18 04/02/18 23:59 23:59 23:59 Intake Total 0 / 0 Balance 0 / 0 Laboratory Tests Past 24 Hrs 04/02/18 04/02/18 04:34 06:55 Troponin I 0.031 0.028 Medical Necessity - Tobacco Use Smoking Status: Former smoker Tobacco Use: Non-smoker Assessment/Plan All Active Problems (Last Reviewed 04/02/18 @ 07:43 by Williams Yousif MD) Chest pain (Acute) Atrial dysrhythmia (Acute) Ventricular tachycardia (Acute) 1. Chest pain with indeterminate troponin-EKG without ST-T changes. Troponin 0.021, 0.028. Cardiology consulted. Patient follows with Dr. Hayden. Nuclear stress test completed, report pending. Further workup pending stress test results. Continue aspirin, statin, carvedilol. 2. Non-CAD cardiomyopathy-status post ICD. Continue home medication regimen. 3. Chronic systolic CHF-echocardiogram 06/17/2017 showed an EF of 20%, severe global left ventricular systolic dysfunction, mild global right ventricular systolic dysfunction, moderately enlarged left atrium, stable appearing mechanical mitral valve, moderate tricuspid valve insufficiency, trivial aortic valve insufficiency, RVSP estimated to be 33 mmHg. Continue home carvedilol, spironolactone, furosemide regimen. Chest x-ray on admission without evidence of CHF. 4. Paroxysmal atrial fibrillation/atrial flutter-continue Coumadin regimen. Trend INR. Continue carvedilol. Currently atrial paced on telemetry. 5. Status post ICD-pacer check 02/02/2018. 6. Status post mitral valve replacement 7. Hypertension-stable, continue spironolactone and Coreg regimen. 8. Hyperlipidemia-continue statin. 9. Hypothyroidism-continue home [place] Thyroid regimen. 10. Type 2 diabetes mellitus-most recent hemoglobin A1c 11/04/2014 6%. DVT prophylaxis- Coumadin, INR therapeutic. This patient was seen by CATALINO Waterman under the supervision of Dr. Eugene.
[2018-04-02] MEDS: Carvedilol 25 MG Tablet PO (11:11)
[2018-04-02] MEDS: Calcium Carb/Vitamin D 1 TABLET Tablet PO (11:11)
[2018-04-02] MEDS: Aspirin E.C. 81 MG Tablet PO (11:12)
[2018-04-02] MEDS: Furosemide 40 MG Tablet PO (11:12)
[2018-04-02] MEDS: Thyroid 15 MG Tablet 45 MG PO (11:12)
[2018-04-02] MEDS: Folic Acid 1 MG Tablet PO (11:12)
[2018-04-02] MEDS: Spironolactone 25 MG Tablet PO (11:12)
[2018-04-02 12:27] LABS: Hemoglobin A1c 6.4 % (4.2-6.3)
[2018-04-02 12:30] LABS: Potassium 3.8 mmol/L (3.5-5.1)
--- NOTE | 2018-04-02 12:53 | STRESSREP ---
Stress Test Report Date: 04/02/2018 Procedure: Pharmacologic stress nuclear imaging study Indications: Chest pain; cardiomyopathy; status post mitral valve replacement; atrial dysrhythmia; ventricular dysrhythmias; ICD Consent: Per the patient Procedure: The patient underwent pharmacologic (Regadenoson) evaluation with a peak heart rate of 77 beats per minute (53 predicted maximal heart rate) and a peak blood pressure of 122/80 mmHg. The baseline ECG demonstrated atrial paced, consider LVH, nonspecific ST and T-wave abnormality. The peak pharmacologic ECG demonstrated no obvious ECG changes. There were occasional PACs during infusion and recovery. [There was no complaint of chest discomfort during pharmacologic infusion or recovery]. The examination was discontinued secondary to completion of protocol. Impression: 1. Pharmacologic (Regadenoson) evaluation 2. Peak pharmacologic ECG with no obvious ECG changes. 3. There were occasional PACs during infusion and recovery 4. Nuclear images pending Myocardial perfusion imaging study: Technique: The patient was injected with 11.6 millicuries of technetium 99m Cardiolite and subsequently rest SPECT Cardiolite nuclear imaging was obtained in the horizontal long, vertical long, and short axis views. The patient underwent pharmacologic (Regadenoson) evaluation with a peak heart rate of 77 beats per minute (53 % percent predicted maximal heart rate) and a peak blood pressure of 122/80 mmHg. The patient was injected with 33.9 millicuries of technetium 99m Cardiolite and subsequently stress SPECT Cardiolite nuclear imaging was obtained in the horizontal long, vertical long, and short axis views. A gated Cardiolite study at peak stress was obtained. Interpretation: Rest and stress SPECT Cardiolite nuclear imaging status post realignment, normalization, and attenuation correction demonstrate at rest areas of diminished tracer uptake in portions of the basal inferoseptal, basal inferior, and basal inferolateral segments which appear to improve and/or normalize following stress. Otherwise there appears to be relative uniform tracer uptake.. There is diminished end systolic thickening and brightening.. The gated Cardiolite study demonstrates diminished myocardial thickening and inward wall motion.. The reported LVEF is 23 %. Impression: 1. Rest and stress SPECT Cardiolite nuclear imaging demonstrate myocardial perfusion changes more prominent at rest as opposed to stress appearing compatible shifting soft tissue attenuation/artifact with no myocardial perfusion changes consider diagnostic for associated stress-induced myocardial ischemia or previous myocardial injury/infarction. 2. Rest and stress SPECT cardio nuclear imaging also demonstrate myocardial perfusion changes appearing suggestive of of left ventricular dilatation. 3. The gated Cardiolite study reports an LVEF of 23 %. This note was generated with Loc[employer] software. It may contain incorrect words, spelling, and punctuation that were not noted in checking the note before signing.
--- NOTE | 2018-04-02 13:44 | PCM.DC ---
- Discharge Diagnoses Current Active Problems: Current Active and Chronic Problems (Last Reviewed 04/02/18 @ 07:43 by Williams Yousif MD) Chest pain (Acute) You will use the following diet at home:: Other - Carb Control Discharge Activity: Return to Normal Activity Call your doctor if you observe: Shortness of breath, Dizziness, Fainting spells, Chest pain, Increased palpitations (irregular heartbeat) Allergies/Adverse Reactions: Allergies HERMILO Inhibitors Allergy (Verified 04/02/18 00:13) Unknown amiodarone Allergy (Verified 04/02/18 00:13) Unknown Iodinated Contrast- Oral and IV Dye [CONTRASTS] Adverse Reaction (Verified 04/02/18 00:13) I JUMP AROUND ON THE TABLE iodine Adverse Reaction (Verified 04/02/18 00:13) I JUMP AND FLOP AROUND ON THE TABLE Medications to take at Discharge Carvedilol [Coreg (Beta Dave)] 25 mg PO BID 03/28/15 Furosemide [Lasix] 40 mg PO DAILY 03/28/15 Lorazepam [Ativan] 0.5 mg PO DAILY PRN PRN 03/28/15 traMADol [Ultram] 50 mg PO BID PRN 03/28/15 Aspirin [Aspirin, Baby] 81 mg PO DAILY@0800 08/01/17 Multivitamin [Daily Multiple Vitamin] 1 ea PO DAILY 08/01/17 Spironolactone 25 mg PO DAILY 08/01/17 calcium phosphate-vitamin D3 250 mg calcium-500 unit chewable tablet 1 tab PO DAILY ea 08/04/17 thyroid (pork) 15 mg tablet 45 mg PO DAILY 08/04/17 pravastatin 20 mg tablet 20 mg PO QHS #90 tab 08/25/17 folic acid 1 mg tablet 1 mg PO DAILY tab 02/04/18 potassium chloride ER 10 mEq tablet,extended release 10 meq PO BID tab 02/04/18 warfarin 5 mg tablet 5 mg PO .COMPLEX #90 tab 03/03/18 Pantoprazole Sodium [Protonix] 40 mg PO DAILY #30 tab 04/02/18 The following prescriptions were given: Pantoprazole Sodium [Protonix] 40 mg PO DAILY #30 tab Primary Care Physician: Romie Landeros Chi, MD [Primary Care Provider] - Please follow up with your Primary Care Physician in: 1 Week Test Results: Test results from this visit will be discussed in further detail at your follow-up appointment, if applicable. Please Follow Up With: John Hayden MD - May see [facility]/PA When: 1-2 Weeks Proposed Discharge Date: 04/02/18
--- NOTE | 2018-04-02 13:46 | PCM.DC.SUM ---
Discharge Date and Diagnosis Date of Admission: 04/02/18 Date of Discharge: 04/02/18 - Primary Discharge Diagnosis Active and Suspected Problems (Last Reviewed 04/02/18 @ 07:43 by Williams Yousif MD) 1. Chest pain, suspect musculoskeletal versus possible reflux - Secondary Discharge Diagnosis Chronic Problems (Last Reviewed 04/02/18 @ 07:43 by Williams Yousif MD) Chronic systolic congestive heart failure (Chronic) Atrial fibrillation (Chronic) Atrial flutter (Chronic) Dilated cardiomyopathy (Chronic) Presence of implantable cardioverter-defibrillator (ICD) (Chronic) History of mitral valve replacement (Chronic ~06/1997) 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) prison current use of 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) Anxiety states (Chronic) Cardiac pacemaker (Chronic) Type II diabetes mellitus, uncontrolled (Chronic) History of esophageal reflux (Chronic) History of mitral valve disorder (Chronic) HLD (hyperlipidemia) (Chronic) HTN (hypertension) (Chronic) Hospital Course and Treatment Imaging Results: Diagnostic Data Chest X-Ray 04/02/18 00:41 IMPRESSION: 1. Questionable left-sided airspace disease and/or atelectasis. Some of this appearance may be related to overlying soft tissues. 2. COPD. Electronically Signed: Flaca Coombs MD at 1:50 EDT , Service support , Dr. Hayden- Cardiology Operations: None Procedures: Stress test Summary of Care Provided: The patient is a 77 year old F admitted 04/02/2018 due to chest pain. She has a past medical history of non-CAD cardiomyopathy status post ICD, chronic systolic CHF, paroxysmal atrial fibrillation, status post mitral valve replacement, hypertension, hyperlipidemia, hypothyroidism, type 2 diabetes mellitus, former tobacco use, history of breast cancer status post right mastectomy. 1. Chest pain with indeterminate troponin-ACS ruled out. EKG without ST-T changes. Troponin 0.021, 0.028. Cardiology consulted. Patient follows with Dr. Hayden. Nuclear stress test completed, which was consistent with cardiomyopathy. No evidence of acute ischemia. Patient stable for discharge home on previous medication regimen. Follow-up with cardiology in 1-2 weeks. CTA of chest was discussed on admission and patient declined due to contrast allergy. Patient denies further chest pain during admission. Patient was placed on PPI at discharge to see if this helps her symptoms, should chest pain return. 2. Non-CAD cardiomyopathy-status post ICD. Continue home medication regimen. 3. Chronic systolic CHF-echocardiogram 06/17/2017 showed an EF of 20%, severe global left ventricular systolic dysfunction, mild global right ventricular systolic dysfunction, moderately enlarged left atrium, stable appearing mechanical mitral valve, moderate tricuspid valve insufficiency, trivial aortic valve insufficiency, RVSP estimated to be 33 mmHg. Continue home carvedilol, spironolactone, furosemide regimen. Chest x-ray on admission without evidence of CHF. 4. Paroxysmal atrial fibrillation/atrial flutter-continue Coumadin regimen. Trend INR. Continue carvedilol. Currently atrial paced on telemetry. 5. Status post ICD-pacer check 02/02/2018. 6. Status post mitral valve replacement 7. Hypertension-stable, continue spironolactone and Coreg regimen. 8. Hyperlipidemia-continue statin. 9. Hypothyroidism-continue home [place] Thyroid regimen. 10. Type 2 diabetes mellitus-most recent hemoglobin A1c 11/04/2014 6%. Repeat hemoglobin A1c during admission 6.4%. Discussed with patient carb control diet. Continue outpatient follow-up. General: Alert, Oriented x3, Cooperative HEENT: Atraumatic, PERRLA, EOMI, Normocephalic Neck: Supple, No JVD, Negative Carotid Bruits Lungs: Clear to auscultation, Normal air movement Cardiovascular: Regular rate, Regular Rhythm, Normal S1, Normal S2, Murmur - Click Abdomen: Bowel Sounds Present, Soft, Non Tender, Non-Distended Extremities: No clubbing, No cyanosis, No edema, Capillary Refill Less than 3 Seconds Skin: No rashes, No breakdown Musculoskeletal: No Tenderness to Palpation of Joints or Extremities Neurological: Cranial nerves II-XII grossly intact, Neuro grossly intact Psych/Mental Status: Normal Affect, Appropriate Patient seen exam prior to discharge. Physical assessment as noted above. Patient is stable for discharge home with further follow-up with primary care physician and cardiology. This patient was seen by CATALINO Waterman under the supervision of Dr. Eugene. Discharge Diet: Carb Control Diet Discharge Activity: Return to Normal Activity Call your doctor if you observe: Shortness of breath, Dizziness, Fainting spells, Chest pain, Increased palpitations (irregular heartbeat) Home Medications: Medications to take at Discharge Carvedilol [Coreg (Beta Dave)] 25 mg PO BID 03/28/15 Furosemide [Lasix] 40 mg PO DAILY 03/28/15 Lorazepam [Ativan] 0.5 mg PO DAILY PRN PRN 03/28/15 traMADol [Ultram] 50 mg PO BID PRN 03/28/15 Aspirin [Aspirin, Baby] 81 mg PO DAILY@0800 08/01/17 Multivitamin [Daily Multiple Vitamin] 1 ea PO DAILY 08/01/17 Spironolactone 25 mg PO DAILY 08/01/17 calcium phosphate-vitamin D3 250 mg calcium-500 unit chewable tablet 1 tab PO DAILY ea 08/04/17 thyroid (pork) 15 mg tablet 45 mg PO DAILY 08/04/17 pravastatin 20 mg tablet 20 mg PO QHS #90 tab 08/25/17 folic acid 1 mg tablet 1 mg PO DAILY tab 02/04/18 potassium chloride ER 10 mEq tablet,extended release 10 meq PO BID tab 02/04/18 warfarin 5 mg tablet 5 mg PO .COMPLEX #90 tab 03/03/18 Pantoprazole Sodium [Protonix] 40 mg PO DAILY #30 tab 04/02/18 Following Prescrptions Were Given to Patient: Pantoprazole Sodium [Protonix] 40 mg PO DAILY #30 tab Primary Care Physician: Romie Landeros Chi, MD [Primary Care Provider] - Please follow up with your Primary Care Physician in: 1 Week Please Follow Up With: John Hayden MD - May see WILDLIFE CONTROL AGENT/PA When: 1-2 Weeks Disposition: Home Minutes spent on discharge:: 35 Patient Condition:: Stable Medical Necessity - Tobacco Use Smoking Status: Former smoker Tobacco Use: Non-smoker Meaningful Use Info Meaningful Use Diagnoses (Choose all that apply): None applicable
--- NOTE | 2018-04-02 13:52 | DS.PCM_ITS ---
Discharge Date and Diagnosis Date of Admission: 04/02/18 Date of Discharge: 04/02/18 - Primary Discharge Diagnosis Active and Suspected Problems (Last Reviewed 04/02/18 @ 07:43 by Williams Yousif MD) 1. Chest pain, suspect musculoskeletal versus possible reflux - Secondary Discharge Diagnosis Chronic Problems (Last Reviewed 04/02/18 @ 07:43 by Williams Yousif MD) Chronic systolic congestive heart failure (Chronic) Atrial fibrillation (Chronic) Atrial flutter (Chronic) Dilated cardiomyopathy (Chronic) Presence of implantable cardioverter-defibrillator (ICD) (Chronic) History of mitral valve replacement (Chronic ~06/1997) [facility] 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) senior living current use of 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) Anxiety states (Chronic) Cardiac pacemaker (Chronic) Type II diabetes mellitus, uncontrolled (Chronic) History of esophageal reflux (Chronic) History of mitral valve disorder (Chronic) HLD (hyperlipidemia) (Chronic) HTN (hypertension) (Chronic) Hospital Course and Treatment Imaging Results: Diagnostic Data Chest X-Ray 04/02/18 00:41 IMPRESSION: 1. Questionable left-sided airspace disease and/or atelectasis. Some of this appearance may be related to overlying soft tissues. 2. COPD. Electronically Signed: Flaca Coombs MD at 1:50 EDT , Service support , Dr. Hayden- Cardiology Operations: None Procedures: Stress test Summary of Care Provided: The patient is a 77 year old F admitted 04/02/2018 due to chest pain. She has a past medical history of non-CAD cardiomyopathy status post ICD, chronic systolic CHF, paroxysmal atrial fibrillation, status post mitral valve replacement, hypertension, hyperlipidemia, hypothyroidism, type 2 diabetes mellitus, former tobacco use, history of breast cancer status post right mastectomy. 1. Chest pain with indeterminate troponin-ACS ruled out. EKG without ST-T changes. Troponin 0.021, 0.028. Cardiology consulted. Patient follows with Dr. Hayden. Nuclear stress test completed, which was consistent with cardiomyopathy. No evidence of acute ischemia. Patient stable for discharge home on previous medication regimen. Follow-up with cardiology in 1-2 weeks. CTA of chest was discussed on admission and patient declined due to contrast allergy. Patient denies further chest pain during admission. Patient was placed on PPI at discharge to see if this helps her symptoms, should chest pain return. 2. Non-CAD cardiomyopathy-status post ICD. Continue home medication regimen. 3. Chronic systolic CHF-echocardiogram 06/17/2017 showed an EF of 20%, severe global left ventricular systolic dysfunction, mild global right ventricular systolic dysfunction, moderately enlarged left atrium, stable appearing mechanical mitral valve, moderate tricuspid valve insufficiency, trivial aortic valve insufficiency, RVSP estimated to be 33 mmHg. Continue home carvedilol, spironolactone, furosemide regimen. Chest x-ray on admission without evidence of CHF. 4. Paroxysmal atrial fibrillation/atrial flutter-continue Coumadin regimen. Trend INR. Continue carvedilol. Currently atrial paced on telemetry. 5. Status post ICD-pacer check 02/02/2018. 6. Status post mitral valve replacement 7. Hypertension-stable, continue spironolactone and Coreg regimen. 8. Hyperlipidemia-continue statin. 9. Hypothyroidism-continue home [place] Thyroid regimen. 10. Type 2 diabetes mellitus-most recent hemoglobin A1c 11/04/2014 6%. Repeat hemoglobin A1c during admission 6.4%. Discussed with patient carb control diet. Continue outpatient follow-up. General: Alert, Oriented x3, Cooperative HEENT: Atraumatic, PERRLA, EOMI, Normocephalic Neck: Supple, No JVD, Negative Carotid Bruits Lungs: Clear to auscultation, Normal air movement Cardiovascular: Regular rate, Regular Rhythm, Normal S1, Normal S2, Murmur - Click Abdomen: Bowel Sounds Present, Soft, Non Tender, Non-Distended Extremities: No clubbing, No cyanosis, No edema, Capillary Refill Less than 3 Seconds Skin: No rashes, No breakdown Musculoskeletal: No Tenderness to Palpation of Joints or Extremities Neurological: Cranial nerves II-XII grossly intact, Neuro grossly intact Psych/Mental Status: Normal Affect, Appropriate Patient seen exam prior to discharge. Physical assessment as noted above. Patient is stable for discharge home with further follow-up with primary care physician and cardiology. This patient was seen by CATALINO Waterman under the supervision of Dr. Eugene. Discharge Diet: Carb Control Diet Discharge Activity: Return to Normal Activity Call your doctor if you observe: Shortness of breath, Dizziness, Fainting spells , Chest pain, Increased palpitations (irregular heartbeat) Home Medications: Medications to take at Discharge Carvedilol [Coreg (Beta Dave)] 25 mg PO BID 03/28/15 Furosemide [Lasix] 40 mg PO DAILY 03/28/15 Lorazepam [Ativan] 0.5 mg PO DAILY PRN PRN 03/28/15 traMADol [Ultram] 50 mg PO BID PRN 03/28/15 Aspirin [Aspirin, Baby] 81 mg PO DAILY@0800 08/01/17 Multivitamin [Daily Multiple Vitamin] 1 ea PO DAILY 08/01/17 Spironolactone 25 mg PO DAILY 08/01/17 calcium phosphate-vitamin D3 250 mg calcium-500 unit chewable tablet 1 tab PO DAILY ea 08/04/17 thyroid (pork) 15 mg tablet 45 mg PO DAILY 08/04/17 pravastatin 20 mg tablet 20 mg PO QHS #90 tab 08/25/17 folic acid 1 mg tablet 1 mg PO DAILY tab 02/04/18 potassium chloride ER 10 mEq tablet,extended release 10 meq PO BID tab warfarin 5 mg tablet 5 mg PO .COMPLEX #90 tab 03/03/18 Pantoprazole Sodium [Protonix] 40 mg PO DAILY #30 tab 04/02/18 Following Prescrptions Were Given to Patient: Pantoprazole Sodium [Protonix] 40 mg PO DAILY #30 tab Primary Care Physician: Romie Landeros Chi, MD [Primary Care Provider] - Please follow up with your Primary Care Physician in: 1 Week Please Follow Up With: John Hayden MD - May see OUTREACH LIBRARIAN/PA When: 1-2 Weeks Disposition: Home Minutes spent on discharge:: 35 Patient Condition:: Stable Medical Necessity - Tobacco Use Smoking Status: Former smoker Tobacco Use: Non-smoker Meaningful Use Info Meaningful Use Diagnoses (Choose all that apply): None applicable
== END 2018-04-02 14:52 | disposition home or self-care (01) ==
LOC: ED 00:28 → PCU 02:32
PROVIDERS: Admitting Provider Hospitalist; Emergency Provider Emergency Medicine; Family Provider Family Medicine Geriatric Medicine; PCP Family Medicine Geriatric Medicine; Visit Provider Family Medicine
DX: R07.89 Other chest pain (principal); I42.0 Dilated cardiomyopathy; I11.0 Hypertensive heart disease with heart failure; I50.22 Chronic systolic (congestive) heart failure; E78.5 Hyperlipidemia, unspecified; I48.2 Chronic atrial fibrillation; I48.92 Unspecified atrial flutter; K21.9 Gastro-esophageal reflux disease without esophagitis; F41.9 Anxiety disorder, unspecified; Z79.899 Other long term (current) drug therapy; Z95.810 Presence of automatic (implantable) cardiac defibrillator; Z79.82 Long term (current) use of aspirin; Z95.2 Presence of prosthetic heart valve; Z87.891 Personal history of nicotine dependence; M79.7 Fibromyalgia; R73.03 Prediabetes; R73.9 Hyperglycemia, unspecified
CPT/HCPCS: 36415; 71046; 78452; 80048; 83036; 84132; 84484; 85025; 85610; 93005; 93017; 96374; 96376; 97162; 97166; 97802; 99218; 99284; A9500; A4216; G0378; J2785

== ENCOUNTER 2018-04-06 14:21 | Outpatient (RCR) | payer MEDICARE, OTHER, SELFPAY ==
[2018-04-06 14:41] LABS: Prothrombin Time Fingerstick 25.1 SEC (11.9-14.4)
== END 2018-04-06 16:00 | disposition home or self-care (01) ==
LOC: MTLAB 14:21
PROVIDERS: Family Provider Family Medicine Geriatric Medicine; PCP Family Medicine Geriatric Medicine; Visit Provider Internal Medicine Cardiovascular Disease
DX: I48.91 Unspecified atrial fibrillation (principal); Z79.899 Other long term (current) drug therapy
CPT/HCPCS: 36416; 85610

== ENCOUNTER → 2018-05-08 10:27 | Outpatient (CLI) | payer MEDICARE, OTHER, SELFPAY ==
[2018-05-08 11:56] LABS: Absolute Lymphocyte Count 0.66 X10^3/ul (0.83-4.51); Absolute Neutrophil Count 5.3 X10^3/uL (2.0-7.7); Basophil# 0.02 X10^3/uL; Basophil% 0.3 % (0-1); Eosinophil# 0.08 X10^3/uL; Eosinophils% 1.2 % (0-5); Hematocrit 41.2 % (37-47); Hemoglobin 13.1 g/dl (12.0-15.0); Lymphocyte # 0.66 X10^3/ul (4.0); Lymphocyte % 9.8 % (19-41); Mean Corp Hgb Conc 31.8 g/gl (32-36); Mean Corpuscular Hgb 29.2 pg (27.0-32.0); Mean Platelet Vol. 10.7 fl (6.2-12.0); Monocyte# 0.74 X10^3/uL; Monocyte% 10.9 % (0-10); Neutrophil # 5.25 X10^3/uL (2.7-7.7); Neutrophil % 77.7 % (47-70); Platelet Count 119 K/mm3 (150-450); RBC Distribution Width CV 15.5 % (11.6-14.6); RBC Distribution Width SD 52.1 fl (35.1-43.9); Red Blood Count 4.48 M/mm3 (4.2-5.4); White Blood Count 6.8 K/mm3 (4.4-11.0)
[2018-05-08 11:57] LABS: POSITIVE COUNT NO; POSITIVE DIFFERENTIAL NO
[2018-05-08 11:58] LABS: POSITIVE MORPHOLOGY NO
[2018-05-08 12:20] LABS: Vitamin D,25 Hydroxy 68.3 ng/mL (29.95-100.01)
[2018-05-08 12:24] LABS: ALB/GLOB Ratio 1.2 RATIO (0.9-2.4); AST(SGOT) 31 U/L (15-37); Alanine Aminotransfer ALT/SGPT 32 U/L (13-56); Albumin, Serum 3.6 g/dL (3.2-5.0); Alkaline Phosphatase 137 U/L (45-117); Anion Gap 10 (5-15); BUN 26 mg/dL (7-18); Calcium,Total 9.3 mg/dL (8.5-10.1); Chloride 97 mmol/L (98-107); Creatinine, Serum 1.04 mg/dL (0.55-1.02); EST Glomerular Filtration Rate 55 mL/min (>60); Est Glom Filt Rate - Afr Amer 66 mL/min (>60); Globulin 3.1 g/dL (2.2-4.2); Glucose 135 mg/dL (74-106); Potassium 4.4 mmol/L (3.5-5.1); Protein, Total 6.7 g/dL (6.4-8.2); Sodium Level 138 mmol/L (136-145); Thyroid Stim Hormone (TSH) 3.95 uIU/mL (0.358-3.74)
== END ==
PROVIDERS: Family Provider Family Medicine Geriatric Medicine; PCP Family Medicine Geriatric Medicine; Visit Provider Family Medicine Geriatric Medicine
DX: E55.9 Vitamin D deficiency, unspecified (principal); I10 Essential (primary) hypertension
CPT/HCPCS: 36415; 80053; 82306; 84443; 85025

== ENCOUNTER 2018-05-15 14:40 | Outpatient (RCR) | payer MEDICARE, OTHER, SELFPAY ==
[2018-04-27 15:06] LABS: INR Fingerstick > 6.00; Prothrombin Time Fingerstick 66.8 SEC (11.9-14.4)
[2018-04-27 16:33] LABS: Prothrombin Time (Protime)PT. 47.3 SECONDS (11.7-14.9)
[2018-04-27 16:43] LABS: International Normalized Ratio 5.1
[2018-04-29 14:56] LABS: Prothrombin Time Fingerstick 26.6 SEC (11.9-14.4)
[2018-05-15 15:16] LABS: Prothrombin Time Fingerstick 38.1 SEC (11.9-14.4)
== END 2018-05-15 16:00 | disposition home or self-care (01) ==
LOC: MTLAB 14:40
PROVIDERS: Family Provider Family Medicine Geriatric Medicine; PCP Family Medicine Geriatric Medicine; Visit Provider Internal Medicine Cardiovascular Disease
DX: I48.91 Unspecified atrial fibrillation (principal); Z79.01 Long term (current) use of anticoagulants
CPT/HCPCS: 36415; 36416; 85610

== ENCOUNTER → 2018-05-26 15:33 | Outpatient (CLI) | payer MEDICARE, OTHER, SELFPAY ==
--- NOTE | 2018-05-26 16:01 | RAD_ITS ---
STUDY: X-RAY - ABDOMEN/PELVIS REASON FOR EXAM: Female, 77 years old. Nausea TECHNIQUE: Two AP supine views of the abdomen and pelvis. COMPARISON: None. FINDINGS: Bibasilar effusions are present. There is an unremarkable bowel gas pattern. There is no demonstrated free abdominal air. The visualized liver, spleen and kidneys are grossly normal in size and morphology. Normal soft tissue structures. Normal visualized osseous structures. RAD/Abdomen Single View IMPRESSION: Bibasilar pleural effusions are present. There is no evidence of ileus, obstruction, or free intraperitoneal air. Electronically Signed: Renzo Max MD at 16:36 EDT , Service support ,
--- NOTE | 2018-05-26 16:15 | RAD_ITS ---
STUDY: X-RAY CHEST REASON FOR EXAM: Female, 77 years old. Increased shortness of breath, history of left-sided breast cancer TECHNIQUE: PA and lateral views of the chest. COMPARISON: Previous study of 04/02/2018 FINDINGS: Right-sided pacemaker is present. There is a prominent interstitial pattern with peribronchial cuffing of the right lower lobe. There is small bibasilar effusions. Cardiomegaly is present. Status post sternotomy changes are seen. Normal mediastinum and irene. Normal visualized pulmonary arteries. There are calcified plaques of the aortic arch. Normal visualized thoracic spine. Normal visualized ribs, clavicles, and shoulders. There is no demonstrated abnormality of the visualized soft tissue structures of the upper abdomen. RAD/Chest PA and Lateral IMPRESSION: 1. Cardiomegaly. Status post sternotomy. 2. Small bibasilar pleural effusions, new in the interval. 3. Prominent interstitial pattern with peribronchial cuffing of the right lower lobe, similar to the previous study. 4. 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 5. A left breast implant is noted. Electronically Signed: Renzo Max MD at 16:35 EDT , Service support ,
[2018-05-26 17:01] LABS: Absolute Lymphocyte Count 0.64 X10^3/ul (0.83-4.51); Absolute Neutrophil Count 6.5 X10^3/uL (2.0-7.7); Basophil# 0.02 X10^3/uL; Basophil% 0.2 % (0-1); Eosinophil# 0.11 X10^3/uL; Eosinophils% 1.4 % (0-5); Hematocrit 40.8 % (37-47); Hemoglobin 13.4 g/dl (12.0-15.0); Lymphocyte # 0.64 X10^3/ul (4.0); Lymphocyte % 7.9 % (19-41); Mean Corp Hgb Conc 32.8 g/gl (32-36); Mean Corpuscular Hgb 29.8 pg (27.0-32.0); Mean Corpuscular Volume 90.9 fL (81-99); Mean Platelet Vol. 11.1 fl (6.2-12.0); Monocyte# 0.81 X10^3/uL; Neutrophil % 80.1 % (47-70); Platelet Count 162 K/mm3 (150-450); RBC Distribution Width CV 15.3 % (11.6-14.6); Red Blood Count 4.49 M/mm3 (4.2-5.4); White Blood Count 8.1 K/mm3 (4.4-11.0)
[2018-05-26 17:06] LABS: POSITIVE COUNT NO; POSITIVE DIFFERENTIAL NO; POSITIVE MORPHOLOGY NO
[2018-05-26 17:22] LABS: D-Dimer Quantitative (DVT/PE) < 0.27 FEU/ug/m (0.27-0.49)
[2018-05-26 17:45] LABS: ALB/GLOB Ratio 1.3 RATIO (0.9-2.4); AST(SGOT) 25 U/L (15-37); Alanine Aminotransfer ALT/SGPT 24 U/L (13-56); Albumin, Serum 3.8 g/dL (3.2-5.0); Alkaline Phosphatase 127 U/L (45-117); Anion Gap 7 (5-15); BUN 20 mg/dL (7-18); BUN/Creat Ratio 20.8 RATIO (10-20); Calcium,Total 9.3 mg/dL (8.5-10.1); Chloride 97 mmol/L (98-107); Creatinine, Serum 0.96 mg/dL (0.55-1.02); EST Glomerular Filtration Rate 60 mL/min (>60); Est Glom Filt Rate - Afr Amer 72 mL/min (>60); Globulin 2.9 g/dL (2.2-4.2); Glucose 137 mg/dL (74-106); Potassium 5.2 mmol/L (3.5-5.1); Protein, Total 6.7 g/dL (6.4-8.2); Sodium Level 131 mmol/L (136-145); Thyroid Stim Hormone (TSH) 5.87 uIU/mL (0.358-3.74)
== END ==
LOC: POLAB3 15:34 → RAD 15:59
PROVIDERS: Family Provider Family Medicine Geriatric Medicine; PCP Family Medicine Geriatric Medicine; Referring Provider Family Medicine Geriatric Medicine; Visit Provider Family Medicine Geriatric Medicine
DX: R06.02 Shortness of breath (principal); I50.9 Heart failure, unspecified; R53.83 Other fatigue; R11.0 Nausea
CPT/HCPCS: 36415; 71046; 74018; 80053; 83880; 84443; 85025; 85379; 87086; 87088

== ENCOUNTER → 2018-06-10 15:16 | Outpatient (CLI) | payer MEDICARE, OTHER, SELFPAY ==
[2018-06-10 16:40] LABS: Absolute Lymphocyte Count 0.61 X10^3/ul (0.83-4.51); Absolute Neutrophil Count 3.6 X10^3/uL (2.0-7.7); Basophil# 0.02 X10^3/uL; Basophil% 0.4 % (0-1); Eosinophil# 0.13 X10^3/uL; Eosinophils% 2.6 % (0-5); Hematocrit 40.8 % (37-47); Lymphocyte # 0.61 X10^3/ul (4.0); Lymphocyte % 12.2 % (19-41); Mean Corp Hgb Conc 31.9 g/gl (32-36); Mean Corpuscular Hgb 29.7 pg (27.0-32.0); Mean Corpuscular Volume 93.2 fL (81-99); Mean Platelet Vol. 11.7 fl (6.2-12.0); Monocyte# 0.65 X10^3/uL; Monocyte% 12.9 % (0-10); Neutrophil # 3.61 X10^3/uL (2.7-7.7); Neutrophil % 71.9 % (47-70); Platelet Count 139 K/mm3 (150-450); RBC Distribution Width SD 49.7 fl (35.1-43.9); Red Blood Count 4.38 M/mm3 (4.2-5.4)
[2018-06-10 16:41] LABS: POSITIVE COUNT NO; POSITIVE DIFFERENTIAL NO; POSITIVE MORPHOLOGY NO
[2018-06-10 16:53] LABS: Anion Gap 5 (5-15); BUN 26 mg/dL (7-18); BUN/Creat Ratio 25.5 RATIO (10-20); Calcium,Total 8.8 mg/dL (8.5-10.1); Chloride 102 mmol/L (98-107); Creatinine, Serum 1.02 mg/dL (0.55-1.02); EST Glomerular Filtration Rate 56 mL/min (>60); Est Glom Filt Rate - Afr Amer 68 mL/min (>60); Glucose 105 mg/dL (74-106); Potassium 4.2 mmol/L (3.5-5.1); Sodium Level 139 mmol/L (136-145)
== END ==
PROVIDERS: Family Provider Family Medicine Geriatric Medicine; PCP Family Medicine Geriatric Medicine; Visit Provider Family Medicine Geriatric Medicine
DX: I50.9 Heart failure, unspecified (principal)
CPT/HCPCS: 36415; 80048; 83735; 85025

== ENCOUNTER → 2018-06-23 13:38 | Outpatient (CLI) | payer MEDICARE, OTHER, SELFPAY ==
[2018-06-23 16:57] LABS: Absolute Lymphocyte Count 0.71 X10^3/ul (0.83-4.51); Basophil# 0.01 X10^3/uL; Basophil% 0.2 % (0-1); Eosinophils% 2.3 % (0-5); Hematocrit 38.9 % (37-47); Hemoglobin 12.1 g/dl (12.0-15.0); Lymphocyte # 0.71 X10^3/ul (4.0); Lymphocyte % 16.4 % (19-41); Mean Corp Hgb Conc 31.1 g/gl (32-36); Mean Corpuscular Hgb 29.3 pg (27.0-32.0); Mean Corpuscular Volume 94.2 fL (81-99); Mean Platelet Vol. 11.1 fl (6.2-12.0); Monocyte# 0.51 X10^3/uL; Monocyte% 11.8 % (0-10); Neutrophil % 69.3 % (47-70); Platelet Count 136 K/mm3 (150-450); RBC Distribution Width CV 15.5 % (11.6-14.6); RBC Distribution Width SD 53.3 fl (35.1-43.9); Red Blood Count 4.13 M/mm3 (4.2-5.4); White Blood Count 4.3 K/mm3 (4.4-11.0)
[2018-06-23 17:00] LABS: POSITIVE COUNT NO; POSITIVE DIFFERENTIAL NO; POSITIVE MORPHOLOGY NO
[2018-06-23 17:10] LABS: Anion Gap 7 (5-15); BUN 23 mg/dL (7-18); BUN/Creat Ratio 26.5 RATIO (10-20); Calcium,Total 9.2 mg/dL (8.5-10.1); Chloride 101 mmol/L (98-107); Creatinine, Serum 0.87 mg/dL (0.55-1.02); EST Glomerular Filtration Rate 67 mL/min (>60); Est Glom Filt Rate - Afr Amer 81 mL/min (>60); Glucose 112 mg/dL (74-106); Potassium 4.3 mmol/L (3.5-5.1); Sodium Level 139 mmol/L (136-145); Thyroid Stim Hormone (TSH) 1.39 uIU/mL (0.358-3.74)
== END ==
PROVIDERS: Family Provider Family Medicine Geriatric Medicine; PCP Family Medicine Geriatric Medicine; Visit Provider Family Medicine Geriatric Medicine
DX: I50.9 Heart failure, unspecified (principal)
CPT/HCPCS: 36415; 80048; 84443; 85025

== ENCOUNTER → 2018-06-30 13:51 | Outpatient (CLI) | payer MEDICARE, OTHER, SELFPAY ==
[2018-06-30 15:48] LABS: Absolute Lymphocyte Count 0.72 X10^3/ul (0.83-4.51); Absolute Neutrophil Count 2.9 X10^3/uL (2.0-7.7); Basophil# 0.01 X10^3/uL; Basophil% 0.2 % (0-1); Eosinophils% 2.3 % (0-5); Hematocrit 37.1 % (37-47); Hemoglobin 11.9 g/dl (12.0-15.0); Lymphocyte # 0.72 X10^3/ul (4.0); Lymphocyte % 16.3 % (19-41); Mean Corp Hgb Conc 32.1 g/gl (32-36); Mean Corpuscular Hgb 30.4 pg (27.0-32.0); Mean Corpuscular Volume 94.6 fL (81-99); Monocyte# 0.71 X10^3/uL; Monocyte% 16.1 % (0-10); Neutrophil # 2.88 X10^3/uL (2.7-7.7); Neutrophil % 65.1 % (47-70); Platelet Count 126 K/mm3 (150-450); RBC Distribution Width CV 15.2 % (11.6-14.6); RBC Distribution Width SD 51.1 fl (35.1-43.9); Red Blood Count 3.92 M/mm3 (4.2-5.4); White Blood Count 4.4 K/mm3 (4.4-11.0)
[2018-06-30 15:59] LABS: Anion Gap 4 (5-15); BUN 25 mg/dL (7-18); BUN/Creat Ratio 24.3 RATIO (10-20); Calcium,Total 8.8 mg/dL (8.5-10.1); Chloride 102 mmol/L (98-107); Creatinine, Serum 1.03 mg/dL (0.55-1.02); EST Glomerular Filtration Rate 55 mL/min (>60); Est Glom Filt Rate - Afr Amer 67 mL/min (>60); Glucose 98 mg/dL (74-106); Potassium 4.9 mmol/L (3.5-5.1); Sodium Level 137 mmol/L (136-145)
[2018-06-30 16:15] LABS: POSITIVE COUNT NO; POSITIVE DIFFERENTIAL NO; POSITIVE MORPHOLOGY NO
== END ==
PROVIDERS: Family Provider Family Medicine Geriatric Medicine; PCP Family Medicine Geriatric Medicine; Visit Provider Family Medicine Geriatric Medicine
DX: I50.9 Heart failure, unspecified (principal)
CPT/HCPCS: 36415; 80048; 85025

== ENCOUNTER 2018-07-06 13:17 | Outpatient (RCR) | payer MEDICARE, OTHER, SELFPAY ==
[2018-06-19 14:31] LABS: Prothrombin Time Fingerstick 32.5 SEC (11.9-14.4)
[2018-07-06 13:35] LABS: Prothrombin Time Fingerstick 22.7 SEC (11.9-14.4)
== END 2018-07-06 14:00 | disposition home or self-care (01) ==
LOC: MTLAB 13:17
PROVIDERS: Family Provider Family Medicine Geriatric Medicine; PCP Family Medicine Geriatric Medicine; Referring Provider Internal Medicine Cardiovascular Disease; Visit Provider Internal Medicine Cardiovascular Disease
DX: I48.91 Unspecified atrial fibrillation (principal); Z79.01 Long term (current) use of anticoagulants
CPT/HCPCS: 36416; 85610

== ENCOUNTER → 2018-07-14 15:07 | Outpatient (CLI) | payer MEDICARE, OTHER, SELFPAY ==
[2018-07-14 17:18] LABS: Absolute Lymphocyte Count 0.93 X10^3/ul (0.83-4.51); Absolute Neutrophil Count 4.6 X10^3/uL (2.0-7.7); Basophil# 0.01 X10^3/uL; Basophil% 0.2 % (0-1); Eosinophil# 0.08 X10^3/uL; Eosinophils% 1.2 % (0-5); Hematocrit 40.5 % (37-47); Hemoglobin 13.2 g/dl (12.0-15.0); Lymphocyte # 0.93 X10^3/ul (4.0); Lymphocyte % 14.2 % (19-41); Mean Corp Hgb Conc 32.6 g/gl (32-36); Mean Corpuscular Hgb 30.3 pg (27.0-32.0); Mean Corpuscular Volume 93.1 fL (81-99); Mean Platelet Vol. 11.6 fl (6.2-12.0); Monocyte% 13.8 % (0-10); Neutrophil % 70.4 % (47-70); Platelet Count 144 K/mm3 (150-450); RBC Distribution Width CV 14.9 % (11.6-14.6); Red Blood Count 4.35 M/mm3 (4.2-5.4); White Blood Count 6.5 K/mm3 (4.4-11.0)
[2018-07-14 17:26] LABS: Anion Gap 8 (5-15); BUN 38 mg/dL (7-18); BUN/Creat Ratio 39.1 RATIO (10-20); Calcium,Total 9.6 mg/dL (8.5-10.1); Chloride 99 mmol/L (98-107); Creatinine, Serum 0.97 mg/dL (0.55-1.02); EST Glomerular Filtration Rate 59 mL/min (>60); Est Glom Filt Rate - Afr Amer 71 mL/min (>60); Glucose 120 mg/dL (74-106); Potassium 5.2 mmol/L (3.5-5.1); Sodium Level 138 mmol/L (136-145)
[2018-07-14 17:45] LABS: POSITIVE COUNT NO; POSITIVE DIFFERENTIAL NO; POSITIVE MORPHOLOGY NO
--- OUTSIDE RECORDS SUMMARY | 2018-09-09 07:30 | XMS RPT_ITS ---
:1940 Author Organization [place] Support Name Relationship Address Phone FRANCY BURK Unavailable [address] + [place] [address] R Unavailable Unavailable Unavailable RYNE, PAT Unavailable [address] + [place] [address] FRANCY BURK Unavailable [address] + [place] [address] R Unavailable Unavailable Unavailable RYNE, PAT Unavailable [address] + [place] [address] FRANCY BURK Unavailable [address] + [place] [address] R Unavailable Unavailable Unavailable RYNE, PAT Unavailable [address] + [place] [address] FRANCY BURK Unavailable [address] + [place] [address] R Unavailable Unavailable Unavailable RYNE, PAT Unavailable [address] + [place] [address] FRANCY BURK Unavailable [address] + [place] [address] R Unavailable Unavailable Unavailable RYNE, PAT Unavailable [address] + [place] [address] FRANCY BURK Unavailable [address] + [place] [address] R Unavailable Unavailable Unavailable RYNE, PAT Unavailable [address] + [place] [address] FRANCY BURK Unavailable [address] + [place] [address] R Unavailable Unavailable Unavailable RYNE, PAT Unavailable [address] + [place] [address] FRANCY BURK Unavailable [address] + [place] [address] R Unavailable Unavailable Unavailable RYNE, PAT Unavailable [address] + [place] [address] BHARGAVI, FRANCY Unavailable [address] + [place] [address] R Unavailable Unavailable Unavailable RYNE, PAT Unavailable [address] + [place] [address] BHARGAVI FRANCY Unavailable [address] + [place] [address] R Unavailable Unavailable Unavailable RYNE, PAT Unavailable [address] + [place] [address] BHARGAVI FRANCY Unavailable [address] + [place] [address] R Unavailable Unavailable Unavailable RYNE, PAT Unavailable [address] + [place] [address] BHARGAVI FRANCY Unavailable [address] + [place] [address] R Unavailable Unavailable Unavailable RYNE, PAT Unavailable [address] + [place] [address] BHARGAVI FRANCY Unavailable [address] + [place] [address] R Unavailable Unavailable Unavailable RYNE, PAT Unavailable [address] + [place] [address] BHARGAVI FRANCY Unavailable [address] + [place] [address] R Unavailable Unavailable Unavailable RYNE, PAT Unavailable [address] + [place] [address] BHARGAVI FRANCY Unavailable [address] + [place] [address] R Unavailable Unavailable Unavailable RYNE, PAT Unavailable [address] + [place] [address] BHARGAVI FRANCY Unavailable [address] + [place] [address] R Unavailable Unavailable Unavailable RYNE, PAT Unavailable [address] + [place] [address] BHARGAVI FRANCY Unavailable [address] + [place] [address] R Unavailable Unavailable Unavailable RYNE, PAT Unavailable [address] + [place] [address] BHARGAVIFRANCY Unavailable [address] + [place] [address] R Unavailable Unavailable Unavailable RYNE, PAT Unavailable [address] + [place] [address] BHARGAVIFRANCY Unavailable [address] + [place] [address] R Unavailable Unavailable Unavailable RYNE, PAT Unavailable [address] + [place] [address] R Unavailable Unavailable Unavailable RYNE, PAT Unavailable [address] + [place] [address] R Unavailable Unavailable Unavailable R Unavailable Unavailable Unavailable RYNE, PAT Unavailable [address] + [place] [address] R Unavailable Unavailable Unavailable R Unavailable Unavailable Unavailable RYNE, PAT Unavailable [address] + [place] [address] BHARGAVIFRANCY Unavailable [address] + [place] [address] R Unavailable Unavailable Unavailable RYNE, PAT Unavailable [address] + [place] [address] BHARGAVI FRANCY Unavailable [address] + [place] [address] R Unavailable Unavailable Unavailable RYNE, PAT Unavailable [address] + [place] [address] BHARGAVIFRANCY Unavailable [address] + [place] [facility] [place] [address] R Unavailable Unavailable Unavailable RYNE, PAT Unavailable [address] + [place] [address] BHARGAVI FRANCY Unavailable [address] + [place] [facility] [place] [place] [address] R Unavailable Unavailable Unavailable RYNE, PAT Unavailable [address] + [place] [address] BHARGAVI FRANCY Unavailable [address] + [place] [address] R Unavailable Unavailable Unavailable RYNE, PAT Unavailable [address] + [place] [address] FRANCY BURK Unavailable [address] + [place] [address] R Unavailable Unavailable Unavailable RYNE, PAT Unavailable [address] + [place] [address] FRANCY BURK Unavailable [address] + [place] [address] R Unavailable Unavailable Unavailable RYNE, PAT Unavailable [address] + [place] [address] FRANCY BURK Unavailable [address] [place] [address] [address] + [place] [address] R Unavailable Unavailable Unavailable RYNE, PAT Unavailable [address] + [place] [address] FRANCY BURK Unavailable [address] [place] [address] [address] + [place] [address] R Unavailable Unavailable Unavailable RYNE, PAT Unavailable [address] + [place] [address] FRANCY BURK Unavailable [address] [place] [address] [address] + [place] [address] R Unavailable Unavailable Unavailable RYNE, PAT Unavailable [address] + [place] [address] FRANCY BURK Unavailable [address] [place] [address] [address] + [place] [address] R Unavailable Unavailable Unavailable RYNE, PAT Unavailable [address] + [place] [address] FRANCY BURK Unavailable [address] [place] [address] [address] + [place] [address] R Unavailable Unavailable Unavailable RYNE, PAT Unavailable [address] + [place] [address] FRANCY BURK Unavailable [address] [place] [address] [address] + [place] [address] R Unavailable Unavailable Unavailable RYNE, PAT Unavailable [address] + [place] [address] FRANCY BURK Unavailable [address] [place] [address] [address] + [place] [address] R Unavailable Unavailable Unavailable RYNE, PAT Unavailable [address] + [place] [address] FRANCY BURK Unavailable [address] [facility] [address] + [place] [address] R Unavailable Unavailable Unavailable RYNE, PAT Unavailable [address] + [place] [address] FRANCY BURK Unavailable [address] [facility] + [place] [address] R Unavailable Unavailable Unavailable RYNE, PAT Unavailable [address] + [place] [address] FRANCY BURK Unavailable [address] [facility] [address] + [place] [address] R Unavailable Unavailable Unavailable RYNE, PAT Unavailable [address] + [place] [address] Care Team Providers Name Role Kelly HerreraArtemio Attending Unavailable Tigre, Romie Chi Referring Unavailable John Hayden Attending Unavailable Vellanki, Brittney Referring Unavailable Tigre, Romie Chi Primary Care Unavailable John Hayden Attending Unavailable Vellanki, Brittney Referring Unavailable Tigre, Romie Chi Primary Care Unavailable John Hayden Attending Unavailable Vellanki, Brittney Referring Unavailable Tigre, Romie Chi Primary Care Unavailable Tigre, Romie Chi Attending Unavailable Tigre, Romie Chi Primary Care Unavailable Tigre, Romie Chi Attending Unavailable Tigre, Romie Chi Primary Care Unavailable Tigre, Romie Chi Attending Unavailable Tigre, Romie Chi Primary Care Unavailable Moodispaadán John Referring Unavailable Tigre, Romie Chi Primary Care Unavailable Tigre, Romie Chi Attending Unavailable Tigre, Romie Chi Attending Unavailable Tigre, Romie Chi Primary Care Unavailable Tigre, Romie Chi Attending Unavailable Jackelyn John Referring Unavailable Tigre, Romie Chi Primary Care Unavailable Shantal Peres Attending Unavailable Tigre, Romie Chi Referring Unavailable Tigre, Romie Chi Attending Unavailable Tigre, Romie Chi Primary Care Unavailable Tigre, Romie Chi Attending Unavailable Tigre, Romie Chi Primary Care Unavailable Tigre, Romie Chi Referring Unavailable John Hayden Consulting Unavailable John Hayden Attending Unavailable Vellanki, Brittney Referring Unavailable Tigre, Romie Chi Primary Care Unavailable John Hayden Attending Unavailable Vellanki, Brittney Referring Unavailable Tigre, Romie Chi Primary Care Unavailable John Hayden Attending Unavailable VellankiBrittney Referring Unavailable Tigre, Romie Chi Primary Care Unavailable Shantal Peres Attending Unavailable Tigre, Romie Chi Referring Unavailable Tigre, Romie Chi Primary Care Unavailable Adrianne Hoover Attending Unavailable John Hayden Attending Unavailable Tigre, Romie Chi Referring Unavailable Tigre, Romie Chi Primary Care Unavailable MitchlankiDagobertoma Attending Unavailable Tigre, Romie Chi Primary Care Unavailable John Hayden Attending Unavailable FernandokiDagobertoma Referring Unavailable Tigre, Romie Chi Primary Care Unavailable John Hayden Attending Unavailable Tigre, Romie Chi Primary Care Unavailable John Hayden Referring Unavailable Tigre, Romie Chi Primary Care Unavailable Williams Yousif Admitting Unavailable Wilda Eugene Attending Unavailable John Hayden Consulting Unavailable Williams Yousif Admitting Unavailable Williams Yousif Attending Unavailable Tigre, Romie Chi Primary Care Unavailable Wilda Eugene Consulting Unavailable Williams Yousif Admitting Unavailable John Hayden Attending Unavailable Tigre, Rmoie Chi Primary Care Unavailable John Hayden Consulting Unavailable Wilda Eugene Consulting Unavailable John Hayden Attending Unavailable John Hayden Referring Unavailable Tigre, Romie Chi Primary Care Unavailable Tigre, Romie Chi Attending Unavailable Tigre, Romie Chi Primary Care Unavailable Shantal Peres Attending Unavailable Tigre, Romie Chi Referring Unavailable John Hayden Attending Unavailable John Hayden Referring Unavailable Tigre, Romie Chi Primary Care Unavailable Tigre, Romie Chi Attending Unavailable Tigre, Romie Chi Primary Care Unavailable Tigre, Romie Chi Referring Unavailable Tigre, Romie Chi Attending Unavailable Tigre, Romie Chi Primary Care Unavailable Tigre, Romie Chi Attending Unavailable Tigre, Romie Chi Primary Care Unavailable Tigre, Romie Chi Attending Unavailable Tigre, Romie Chi Primary Care Unavailable Tigre, Romie Chi Attending Unavailable Tigre, Romie Chi Primary Care Unavailable Tigre, Romie Chi Attending Unavailable Tigre, Romie Chi Primary Care Unavailable Tigre, Romie Chi Attending Unavailable Tigre, Romie Chi Primary Care Unavailable John Hayden Attending Unavailable MoodJohn barker Referring Unavailable Tigre, Romie Chi Primary Care Unavailable Tigre, Romie Chi Primary Care Unavailable Beto Harvey Attending Unavailable Shantal Peres Attending Unavailable Tigre, Romie Chi Referring Unavailable Tigre, Romie Chi Primary Care Unavailable PROBLEMS PROBLEMS DATE TYPE CONDITION / CODE ATTENDING STATUS SOURCE 08/03/2018 Unknown I48.91 - Unspecified MoodispaJohn mccain Active [facility] atrial fibrillation / Community I48.91(ICD-10) Hospital Repository 08/03/2018 Unknown Z79.01 - long term care phlebotomist MoodispaJohn mccain Active [facility] (current) use of Community anticoagulants / Hospital Z79.01(ICD-10) Repository 08/03/2018 Unknown I50.22 - Chronic Artemio Herrera Active [facility] systolic (congestive) Community heart failure / Hospital I50.22(ICD-10) Repository 08/03/2018 Unknown Z95.2 - Presence of Artemio Herrera Active [facility] prosthetic heart Community valve / Z95.2(ICD-10) Hospital Repository 07/14/2018 Unknown I50.23 - Acute on Tigre, Romie Chi Active [facility] chronic systolic Community (congestive) heart Hospital failure / Repository I50.23(ICD-10) 05/26/2018 Unknown I50.9 - Heart Tigre, Romie Chi Active [facility] failure, unspecified Community / I50.9(ICD-10) Hospital Repository 05/26/2018 Unknown R06.02 - Shortness of Tigre, Romie Chi Active [facility] breath / Community R06.02(ICD-10) Hospital Repository 05/26/2018 Unknown R11.0 - Nausea / Tigre, Romie Chi Active [facility] R11.0(ICD-10) [facility] Hospital Repository 02/13/2018 Unknown Z79.899 - Other long Brittney Owens Active [facility] term (current) drug Community therapy / Hospital Z79.899(ICD-10) Repository 02/13/2018 Unknown 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, 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 / Community M06.4(ICD-10) Hospital Repository 02/13/2018 Unknown M79.7 - Fibromyalgia Vellanisabel, Brittney Active [facility] / M79.7(ICD-10) Community Hospital Repository 12/16/2017 Unknown I48.0 - Paroxysmal MoodispaJohn mccain Active [facility] atrial fibrillation / Community I48.0(ICD-10) Hospital Repository 11/04/2017 Unknown I10 - Essential Tigre, Romie Chi Active [facility] (primary) Community hypertension / Hospital I10(ICD-10) Repository 11/04/2017 Unknown E55.9 - Vitamin D Tigre, Romie Chi Active [facility] deficiency, Community unspecified / Hospital E55.9(ICD-10) Repository 10/08/2017 Unknown D64.9 - Anemia, Tigre, Romie Chi Active [facility] unspecified / Community D64.9(ICD-10) Hospital Repository 10/15/2017 Unknown E87.1 - Tigre, Romie Chi Active [facility] Hypo-osmolality and Community hyponatremia / Hospital E87.1(ICD-10) Repository 09/10/2017 Unknown N39.0 - Urinary tract Tigre, Romie Chi Active [facility] infection, site not Community specified / Hospital N39.0(ICD-10) Repository PROCEDURES PROCEDURES No Procedure Records FoundRESULTS RESULTS CARDIOLOGY VISIT Observed: 08/04/2018 Status: F Source: [place] RE[facility] 7:14 AM [facility] REPOSITORY [facility] [address] [place] [address] OFFICE VISIT Date of Service: 08/03/18 MR#: [id number] Acct: [id number] Name: JAMES BURK Rep #: [id number] : 1940 Provider: REYNOLD Herrera Age/Sex: 77/F Location: [facility] Status: Signed HPI HPI Details: JAMES BURK, is a 77 F who presents to the office today for a cardiovascular outpatient follow-up. She has a history of chronic systolic congestive heart failure, mitral valve disease status post mitral valve replacement with a [place] Driss #27 mm mechanical valve in June 1997, atrial fibrillation, ventricular tachycardia status post ICD, hypertension, and hyperlipidemia. Pt. denies chest, arm, jaw, or neck discomfort. Her exercise tolerance is stable. Pt. denies symptoms of CHF, palpitations, dizziness, near syncope, or syncopal episodes. Pt. denies edema or claudication issues. Pt. denies orthopnea, PND, fever, chills, blood in urine, blood in stool, myalgia, or unexplainable fatigue. She state this morning she noticed her hear racing for approximately 5 minutes. This can occur upwards to once a week. She states unintentional weight loss and overall decrease appetite. Intake Vital Signs08/03/18 Height 5 ft 2 in 08/03/18 Weight: 112 lb 08/03/18 Body Mass Index (BMI) 20.5 08/03/18 Blood Pressure 102/40 L Intake Visit Reasons: 6 m fu Instrument Room Technician Required: No Accompanied by: Is patient in pain?: No Allergies HERMILO Inhibitors Allergy (Verified 08/03/18 14:30) Unknown amiodarone Allergy (Verified 08/03/18 14:30) Unknown Iodinated Contrast- Oral and IV Dye [CONTRASTS] Adverse Reaction (Verified 08/03/18 14:30) I JUMP AROUND ON THE TABLE iodine Adverse Reaction (Verified 08/03/18 14:30) I JUMP AND FLOP AROUND ON THE TABLE Medications Furosemide [Lasix] 40 mg PO DAILY 03/28/15 [History Confirmed 08/03/18] Lorazepam [Ativan] 0.5 mg PO DAILY PRN PRN 03/28/15 [History Confirmed 08/03/18] traMADol [Ultram] 50 mg PO BID PRN 03/28/15 [History Confirmed 08/03/18] Aspirin [Aspirin, Baby] 81 mg PO DAILY@0800 08/01/17 [History Confirmed 08/03/18] Multivitamin [Daily Multiple Vitamin] 1 ea PO DAILY 08/01/17 [History Confirmed 08/03/18] calcium phosphate-vitamin D3 250 mg calcium-500 unit chewable tablet 1 tab PO DAILY ea 08/04/17 [History Confirmed 08/03/18] pravastatin 20 mg tablet 20 mg PO QHS #90 tab 08/25/17 [Rx Confirmed 08/03/18] warfarin 5 mg tablet 5 mg PO .COMPLEX #90 tab 04/06/18 [Rx Confirmed 08/03/18] carvedilol 25 mg tablet 12.5 mg PO BID tab 08/03/18 [History] cholecalciferol (vitamin D3) 1,000 unit capsule 1,000 unit PO DAILY 08/03/18 [History Confirmed 08/03/18] sacubitril 97 mg-valsartan 103 mg tablet 1 tab PO BID 08/03/18 [History Confirmed 08/03/18] thyroid (pork) 15 mg tablet 60 mg PO DAILY tab 08/03/18 [History Confirmed 08/03/18] Ejection fraction %: 20 to 24 PFSH Medical History Parkinsons disease (Chronic) Atrial dysrhythmia (Chronic) Ventricular tachycardia (Acute) Chronic systolic congestive heart failure (Chronic) Atrial fibrillation (Chronic) Atrial flutter (Chronic) Dilated cardiomyopathy (Chronic) 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 tachycardia (Chronic) 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 of 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) Anxiety states (Chronic) Cardiac pacemaker (Chronic) Type II diabetes mellitus, uncontrolled (Chronic) History of esophageal reflux (Chronic) History of mitral valve disorder (Chronic) HLD (hyperlipidemia) (Chronic) HTN (hypertension) (Chronic) Fibromyalgia (Chronic) History of breast cancer (Chronic) Surgical History Presence of implantable cardioverter-defibrillator (ICD) (Chronic) History of mitral valve replacement (Chronic 06/1997) History of breast implant (Resolved) History of knee surgery (Resolved) History of mastectomy (Resolved) History of tonsillectomy and adenoidectomy (Resolved) Family History Father Hypertension Cancer Mother Cancer Hypertension Social History Smoking Status: Former smoker alcohol intake: never ROS Const Const: Negative for body ache, fever(s), chills, fatigue or weakness ENT ENT: Negative for dizziness Cardio Chest Pain: No Palpitations: Yes Edema: None Muscle aches with walking: None Resp Respiratory: Negative for SOB with activity, SOB at rest, SOB orthopnea\SOB lying down or paroxysmal nocturnal dyspnea GI GI: Positive for other (Weight loss, decreased appetite); negative nausea, black,tarry stools, bright, red blood in stools or vomiting blood/hematemesis : Negative for hematuria or frequent nighttime urination/ nocturia Musc Musc: Positive for joint pain; negative for muscle aches/ myalgia Skin Skin: Negative non-healing lesions or rash Neuro Neuro: Positive for lightheadedness; negative for weakness, dizziness, near syncope, syncope or orthostatic symptoms Endo Endo: Negative for fatigue Allergy Allergy/Immunology: Negative for rash Cardiology Exam Const Appearance: cooperative, healthy appearing, comfortable and no acute distress Nutritional Appearance: average body habitus and well nourished Orientation: alert, awake and oriented x3 Head Head: normal to inspection Ears: hearing grossly normal bilaterally Nose: external nose normal Face and Sinus: face symmetric Mouth: oral mucosae normal Eyes General: appearance normal, both eyes and all related structures Eyelids: eyelids normal EOM: EOM intact bilaterally Neck Neck: no JVD and normal visual inspection Carotids: normal carotid upstroke Chest Chest inspection: normal inspection of the chest, normal respiratory effort and symmetric chest movement; negative cough Auscultation: Bilateral: Clear to Auscultation Cardio Rate: regular rate Rhythm: regular rhythm Heart sounds: S1 normal and S2 normal; negative rub, gallop or murmur GI GI: normal to inspection Neuro General: alert, awake, oriented x3 and CN's II-XI intact bilaterally Skin Skin: no rashes or lesions noted Extremities Pulses: Normal: Right Posterior Tibial Pulse, Left Posterior Tibial Pulse, Right Radial Pulse, Left Radial Pulse Lower Extremity Edema: None: Bilateral Psych Psychological: normal affect Assessment AND Plan 1. Chronic systolic congestive heart failure I50.22 Plan Her echocardiogram in May 2017 showed ejection fraction of 20%. She will be appears to be tolerating medications well. She will undergo a repeat echocardiogram to discern if improvement in ejection fraction. She did not tolerate increasing carvedilol to 25 mg twice daily due to low blood pressure. At this time she will continue with the Coreg, furosemide, and Entresto. We will continue to monitor. Orders Orders: 2. History of mitral valve replacement Z95.2 St. Driss #27mm 06/1997 Plan This appears stable based on her most recent echocardiogram in May 2017. As noted above she undergo a re-echocardiogram that we will further assess this. At this time, she will continue current medications and we will continue to monitor through history, exam, and repeat echocardiogram as needed. Orders Orders: 3. Ventricular tachycardia I47.2 Plan There does not appear to be any symptomatic recurrence. She will continue with current beta-khadijah. 4. Atrial dysrhythmia I49.8 Plan Her most recent pacemaker check in April 2018 showed a 75 MS episodes, less than 1% of total time, and 12 NSVT episodes. At this time she will continue current medications and we will continue to monitor. 5. Cardiac pacemaker Z95.0 Plan Patient's pacemaker/ICD appears to be functioning appropriately. Her most recent pacemaker check in April 2018 showed battery longevity of approximately 7.5 years. We will continue to monitor this with routine/scheduled follow-ups. 6. Essential hypertension I10 Plan Patient's blood pressure is well-controlled today in the office. We will continue to monitor this. We will not make any medication regimen changes. 7. Hyperlipidemia, unspecified hyperlipidemia type E78.5 Plan She will continue with current statin medication. Plan Detail Additional Comments Thank you for allowing us to participate in the patient's plan of care, if you have any questions please do not hesitate to call. This note was generated using a voice recognition system and there may be incorrect words, spelling, or punctuation that were not noted upon reviewing the office note prior to saving. Follow Up 13 Months (PFM) 6 Months (PERSONNEL GENERALIST MANAGER/PA) Coding Level of Care Code Off vis,est,level 3 Diagnoses Chronic systolic congestive heart failure I50.22 History of mitral valve replacement Z95.2 Ventricular tachycardia I47.2 Atrial dysrhythmia I49.8 Cardiac pacemaker Z95.0 Essential hypertension I10 Hypertension type: essential hypertension Hyperlipidemia, unspecified hyperlipidemia type E78.5 Hyperlipidemia type: unspecified Coding Level of Care Code Off vis,est,level 3 Diagnoses Chronic systolic congestive heart failure I50.22 History of mitral valve replacement Z95.2 Ventricular tachycardia I47.2 Atrial dysrhythmia I49.8 Cardiac pacemaker Z95.0 Essential hypertension I10 Hypertension type: essential hypertension Hyperlipidemia, unspecified hyperlipidemia type E78.5 Hyperlipidemia type: unspecified 08/04/18 0714 <Electronically signed by Artemio BAE> Date Artemio BAE Cosigner Signature: Date (if applicable) CC: Romie Landerso MD PROTIME W/INR Collected: 08/03/2018 Status: F Source: [facility] 3:55 PM [facility] REPOSITORY TYPE CODE TESTS RESULT OUT OF REFERENCE UNITS RANGE LAB L9200.1001 11.9-14.4 SEC High PROTIME ISTAT 22.2 Result Comment: Reference Range 11.9 - 14.4 LAB L9200.2000 Normal INR ISTAT 1.90 Result Comment: Critical Value > 3.5 Performed By: #### L9200.0000 #### [facility] Point of Care [facility] [place] [address] BASIC METABOLIC Collected: 07/29/2018 Status: F Source: [facility] PROFILE (BMP) 3:24 PM [facility] REPOSITORY TYPE CODE TESTS RESULT OUT OF RANGE REFERENCE UNITS LAB L501.0100 74-106 mg/dL High GLU 127 Result Comment: Fasting Glucose result greater than or equal to 126 mg/dL suggests DIABETES MELLITUS per A.D.A. criteria. Please note revised GLUCOSE reference range effective 2017. LAB L501.1000 7-18 mg/dL High BUN 43 LAB L501.1100 0.55-1.02 mg/dL Normal CREAT,SERUM 0.98 Result Comment: The validity of the calculated GFR AND GFRAA in patients over 70 years has not been determined. Clinical correlation is essential. LAB L501.1110 >60 mL/min Low EST GFR 58 Result Comment: Non- GFR Calc LAB L501.1115 >60 mL/min Normal EST GFR - AA 70 Result Comment: GFR Calc LAB L501.1300 10-20 RATIO High BUN/CRE 43.7 LAB L501.2200 8.5-10.1 mg/dL CA Normal 9.0 LAB L501.5300 136-145 mmol/L NA Normal 138 LAB L501.5600 3.5-5.1 mmol/L K Normal 4.6 LAB L501.5900 98-107 mmol/L CL Normal 101 LAB L501.6100 21.0-32.0 mmol/L Normal CO2 32.0 LAB L501.6200 5-15 Normal GAP 5 Performed By: #### L500.2500 #### [facility] [address] [facility] [address] [place], [place], [address] PROTIME W/INR Collected: 07/20/2018 Status: F Source: [place]A FINGERSTICK 3:20 PM [facility] REPOSITORY TYPE CODE TESTS RESULT OUT OF REFERENCE UNITS RANGE LAB L9200.1001 11.9-14.4 SEC High PROTIME ISTAT 28.2 Result Comment: Reference Range 11.9 - 14.4 LAB L9200.2000 Normal INR ISTAT 2.50 Result Comment: Critical Value > 3.5 Performed By: #### L9200.0000 #### [facility] Point of Care [address] [facility]. [place], [place] [address] BASIC METABOLIC Collected: 07/14/2018 Status: F Source: [place]IS[place]LLA PROFILE (BMP) 3:12 PM [facility] REPOSITORY TYPE CODE TESTS RESULT OUT OF RANGE REFERENCE UNITS LAB L501.0100 74-106 mg/dL High GLU 120 Result Comment: Fasting Glucose result from 100 to 125 mg/dL suggests IMPAIRED HOMEOSTASIS per A.D.A. criteria. Please note revised GLUCOSE reference range effective 2017. LAB L501.1000 7-18 mg/dL High BUN 38 LAB L501.1100 0.55-1.02 mg/dL Normal CREAT,SERUM 0.97 Result Comment: The validity of the calculated GFR AND GFRAA in patients over 70 years has not been determined. Clinical correlation is essential. LAB L501.1110 >60 mL/min Low EST GFR 59 Result Comment: Non- GFR Calc LAB L501.1115 >60 mL/min Normal EST GFR - AA 71 Result Comment: GFR Calc LAB L501.1300 10-20 RATIO High BUN/CRE 39.1 LAB L501.2200 8.5-10.1 mg/dL CA Normal 9.6 LAB L501.5300 136-145 mmol/L NA Normal 138 LAB L501.5600 3.5-5.1 mmol/L High K 5.2 LAB L501.5900 98-107 mmol/L CL Normal 99 LAB L501.6100 21.0-32.0 mmol/L Normal CO2 31.0 LAB L501.6200 5-15 Normal GAP 8 Performed By: #### L500.2500 #### [facility] [address] [place], [place], [address] CBC W/DIFF, AUTOMATED Collected: 07/14/2018 Status: F Source: [place] 3:12 PM [facility] REPOSITORY TYPE CODE TESTS RESULT OUT OF RANGE REFERENCE UNITS LAB L100.1000 4.4-11.0 K/mm3 Normal WBC 6.5 LAB L100.1200 4.2-5.4 M/mm3 Normal RBC 4.35 LAB L100.1300 12.0-15.0 g/dl Normal HGB 13.2 LAB L100.1400 37-47 % Normal HCT 40.5 LAB L100.1500 81-99 fL Normal MCV 93.1 LAB L100.1600 27.0-32.0 pg Normal MCH 30.3 LAB L100.1700 32-36 g/gl Normal MCHC 32.6 LAB L100.1810 11.6-14.6 % High RDW CV 14.9 LAB L100.1820 35.1-43.9 fl High RDW SD 49.0 LAB L100.1900 150-450 K/mm3 Low PLT 144 LAB L100.2000 6.2-12.0 fl Normal MPV 11.6 LAB L100.2100 47-70 % High NEUT% 70.4 LAB L100.2200 19-41 % Low LY% 14.2 LAB L100.2300 0-10 % High MONO% 13.8 LAB L100.2400 0-5 % Normal EO% 1.2 LAB L100.2500 0-1 % Normal BASO% 0.2 LAB L100.2550 0.0-0.9 % Normal IM GRAN % 0.200 Result Comment: IG% - Immature Granulocytes (promyelocytes, myelocytes and metamyelocytes) > 1% indicates that a LEFT SHIFT is Present. LAB L100.2620 2.0-7.7 X10 3/uL Normal Absolute Neut 4.6 LAB L100.2720 0.83-4.51 X10 3/ul Normal Absolute Lymph 0.93 Performed By: #### L100.0100 #### [facility] [address] [place] [address], [address] PROTIME W/INR Collected: 07/06/2018 Status: F Source: PRISCILLA FINGERSTICK 1:29 PM [facility] REPOSITORY TYPE CODE TESTS RESULT OUT OF REFERENCE UNITS RANGE LAB L9200.1001 11.9-14.4 SEC High PROTIME ISTAT 22.7 Result Comment: Reference Range 11.9 - 14.4 LAB L9200.2000 Normal INR ISTAT 2.00 Result Comment: Critical Value > 3.5 Performed By: #### L9200.0000 #### [facility] Point of Care [address] [place], [place] [address] BASIC METABOLIC Collected: 06/30/2018 Status: F Source: PRISCILLA PROFILE (BMP) 1:53 PM [facility] REPOSITORY TYPE CODE TESTS RESULT OUT OF RANGE REFERENCE UNITS LAB L501.0100 74-106 mg/dL Normal GLU 98 Result Comment: Please note revised GLUCOSE reference range effective 2017. LAB L501.1000 7-18 mg/dL High BUN 25 LAB L501.1100 0.55-1.02 mg/dL High CREAT,SERUM 1.03 Result Comment: The validity of the calculated GFR AND GFRAA in patients over 70 years has not been determined. Clinical correlation is essential. LAB L501.1110 >60 mL/min Low EST GFR 55 Result Comment: Non- GFR Calc LAB L501.1115 >60 mL/min Normal EST GFR - AA 67 Result Comment: GFR Calc LAB L501.1300 10-20 RATIO High BUN/CRE 24.3 LAB L501.2200 8.5-10.1 mg/dL CA Normal 8.8 LAB L501.5300 136-145 mmol/L NA Normal 137 LAB L501.5600 3.5-5.1 mmol/L K Normal 4.9 LAB L501.5900 98-107 mmol/L CL Normal 102 LAB L501.6100 21.0-32.0 mmol/L Normal CO2 31.0 LAB L501.6200 5-15 Low GAP 4 Performed By: #### L500.2500 #### [facility] [address] [place], [address] CBC W/DIFF, AUTOMATED Collected: 06/30/2018 Status: F Source: PRIS[place]LLA 1:53 PM [facility] REPOSITORY TYPE CODE TESTS RESULT OUT OF RANGE REFERENCE UNITS LAB L100.1000 4.4-11.0 K/mm3 Normal WBC 4.4 LAB L100.1200 4.2-5.4 M/mm3 Low RBC 3.92 LAB L100.1300 12.0-15.0 g/dl Low HGB 11.9 LAB L100.1400 37-47 % Normal HCT 37.1 LAB L100.1500 81-99 fL Normal MCV 94.6 LAB L100.1600 27.0-32.0 pg Normal MCH 30.4 LAB L100.1700 32-36 g/gl Normal MCHC 32.1 LAB L100.1810 11.6-14.6 % High RDW CV 15.2 LAB L100.1820 35.1-43.9 fl High RDW SD 51.1 LAB L100.1900 150-450 K/mm3 Low PLT 126 LAB L100.2000 6.2-12.0 fl Normal MPV 12.0 LAB L100.2100 47-70 % Normal NEUT% 65.1 LAB L100.2200 19-41 % Low LY% 16.3 LAB L100.2300 0-10 % High MONO% 16.1 LAB L100.2400 0-5 % Normal EO% 2.3 LAB L100.2500 0-1 % Normal BASO% 0.2 LAB L100.2550 0.0-0.9 % Normal IM GRAN % 0.000 Result Comment: IG% - Immature Granulocytes (promyelocytes, myelocytes and metamyelocytes) > 1% indicates that a LEFT SHIFT is Present. LAB L100.2620 2.0-7.7 X10 3/uL Normal Absolute Neut 2.9 LAB L100.2720 0.83-4.51 X10 3/ul Low Absolute Lymph 0.72 Performed By: #### L100.0100 #### [facility] [address] [place], [address] CBC W/DIFF, AUTOMATED Collected: 06/23/2018 Status: F Source: [place] 1:39 PM [facility] REPOSITORY TYPE CODE TESTS RESULT OUT OF RANGE REFERENCE UNITS LAB L100.1000 4.4-11.0 K/mm3 Low WBC 4.3 LAB L100.1200 4.2-5.4 M/mm3 Low RBC 4.13 LAB L100.1300 12.0-15.0 g/dl Normal HGB 12.1 LAB L100.1400 37-47 % Normal HCT 38.9 LAB L100.1500 81-99 fL Normal MCV 94.2 LAB L100.1600 27.0-32.0 pg Normal MCH 29.3 LAB L100.1700 32-36 g/gl Low MCHC 31.1 LAB L100.1810 11.6-14.6 % High RDW CV 15.5 LAB L100.1820 35.1-43.9 fl High RDW SD 53.3 LAB L100.1900 150-450 K/mm3 Low PLT 136 LAB L100.2000 6.2-12.0 fl Normal MPV 11.1 LAB L100.2100 47-70 % Normal NEUT% 69.3 LAB L100.2200 19-41 % Low LY% 16.4 LAB L100.2300 0-10 % High MONO% 11.8 LAB L100.2400 0-5 % Normal EO% 2.3 LAB L100.2500 0-1 % Normal BASO% 0.2 LAB L100.2550 0.0-0.9 % Normal IM GRAN % 0.000 Result Comment: IG% - Immature Granulocytes (promyelocytes, myelocytes and metamyelocytes) > 1% indicates that a LEFT SHIFT is Present. LAB L100.2620 2.0-7.7 X10 3/uL Normal Absolute Neut 3.0 LAB L100.2720 0.83-4.51 X10 3/ul Low Absolute Lymph 0.71 Performed By: #### L100.0100 #### [facility] [address] [place], [address] BASIC METABOLIC Collected: 06/23/2018 Status: F Source: [place] PROFILE (BMP) 1:39 PM [facility] REPOSITORY TYPE CODE TESTS RESULT OUT OF RANGE REFERENCE UNITS LAB L501.0100 74-106 mg/dL High GLU 112 Result Comment: Fasting Glucose result from 100 to 125 mg/dL suggests IMPAIRED HOMEOSTASIS per A.D.A. criteria. Please note revised GLUCOSE reference range effective 2017. LAB L501.1000 7-18 mg/dL High BUN 23 LAB L501.1100 0.55-1.02 mg/dL Normal CREAT,SERUM 0.87 Result Comment: The validity of the calculated GFR AND GFRAA in patients over 70 years has not been determined. Clinical correlation is essential. LAB L501.1110 >60 mL/min Normal EST GFR 67 Result Comment: Non- GFR Calc LAB L501.1115 >60 mL/min Normal EST GFR - AA 81 Result Comment: GFR Calc LAB L501.1300 10-20 RATIO High BUN/CRE 26.5 LAB L501.2200 8.5-10.1 mg/dL CA Normal 9.2 LAB L501.5300 136-145 mmol/L NA Normal 139 LAB L501.5600 3.5-5.1 mmol/L K Normal 4.3 LAB L501.5900 98-107 mmol/L CL Normal 101 LAB L501.6100 21.0-32.0 mmol/L Normal CO2 31.0 LAB L501.6200 5-15 Normal GAP 7 Performed By: #### L500.2500, L501.9520 #### [facility] [address] [place], [address] THYROID STIM HORMONE Collected: 06/23/2018 Status: F Source: PRISCILLA (TSH) 1:39 PM [facility] REPOSITORY TYPE CODE TESTS RESULT OUT OF RANGE REFERENCE UNITS LAB L501.9520 0.358-3.74 uIU/mL Normal TSH 1.39 Performed By: #### L500.2500, L501.9520 #### [facility] [address] [place], [address] PROTIME W/INR Collected: 06/19/2018 Status: F Source: PRISCILLA FINGERSTICK 2:27 PM [facility] REPOSITORY TYPE CODE TESTS RESULT OUT OF REFERENCE UNITS RANGE LAB L9200.1001 11.9-14.4 SEC High PROTIME ISTAT 32.5 Result Comment: Reference Range 11.9 - 14.4 LAB L9200.2000 Normal INR ISTAT 2.80 Result Comment: Critical Value > 3.5 Performed By: #### L9200.0000 #### [facility] Point of Care [address] [place], [place] [address] CBC W/DIFF, AUTOMATED Collected: 06/10/2018 Status: F Source: PRIS[place]A 3:22 PM [facility] REPOSITORY TYPE CODE TESTS RESULT OUT OF RANGE REFERENCE UNITS LAB L100.1000 4.4-11.0 K/mm3 Normal WBC 5.0 LAB L100.1200 4.2-5.4 M/mm3 Normal RBC 4.38 LAB L100.1300 12.0-15.0 g/dl Normal HGB 13.0 LAB L100.1400 37-47 % Normal HCT 40.8 LAB L100.1500 81-99 fL Normal MCV 93.2 LAB L100.1600 27.0-32.0 pg Normal MCH 29.7 LAB L100.1700 32-36 g/gl Low MCHC 31.9 LAB L100.1810 11.6-14.6 % High RDW CV 15.0 LAB L100.1820 35.1-43.9 fl High RDW SD 49.7 LAB L100.1900 150-450 K/mm3 Low PLT 139 LAB L100.2000 6.2-12.0 fl Normal MPV 11.7 LAB L100.2100 47-70 % High NEUT% 71.9 LAB L100.2200 19-41 % Low LY% 12.2 LAB L100.2300 0-10 % High MONO% 12.9 LAB L100.2400 0-5 % Normal EO% 2.6 LAB L100.2500 0-1 % Normal BASO% 0.4 LAB L100.2550 0.0-0.9 % Normal IM GRAN % 0.000 Result Comment: IG% - Immature Granulocytes (promyelocytes, myelocytes and metamyelocytes) > 1% indicates that a LEFT SHIFT is Present. LAB L100.2620 2.0-7.7 X10 3/uL Normal Absolute Neut 3.6 LAB L100.2720 0.83-4.51 X10 3/ul Low Absolute Lymph 0.61 Performed By: #### L100.0100 #### [facility] [address] [place], [place], [address] BASIC METABOLIC Collected: 06/10/2018 Status: F Source: [place] PROFILE ([facility]) 3:22 PM [facility] REPOSITORY TYPE CODE TESTS RESULT OUT OF RANGE REFERENCE UNITS LAB L501.0100 74-106 mg/dL Normal GLU 105 Result Comment: Fasting Glucose result from 100 to 125 mg/dL suggests IMPAIRED HOMEOSTASIS per A.D.A. criteria. Please note revised GLUCOSE reference range effective 2017. LAB L501.1000 7-18 mg/dL High BUN 26 LAB L501.1100 0.55-1.02 mg/dL Normal CREAT,SERUM 1.02 Result Comment: The validity of the calculated GFR AND GFRAA in patients over 70 years has not been determined. Clinical correlation is essential. LAB L501.1110 >60 mL/min Low EST GFR 56 Result Comment: Non- GFR Calc LAB L501.1115 >60 mL/min Normal EST GFR - AA 68 Result Comment: GFR Calc LAB L501.1300 10-20 RATIO High BUN/CRE 25.5 LAB L501.2200 8.5-10.1 mg/dL CA Normal 8.8 LAB L501.5300 136-145 mmol/L NA Normal 139 LAB L501.5600 3.5-5.1 mmol/L K Normal 4.2 LAB L501.5900 98-107 mmol/L CL Normal 102 LAB L501.6100 21.0-32.0 mmol/L Normal CO2 32.0 LAB L501.6200 5-15 Normal GAP 5 Performed By: #### L500.2500, L501.5200 #### [facility] [address] [facility] [place], [address] MAGNESIUM Collected: 06/10/2018 Status: F Source: [place] 3:22 PM [facility] REPOSITORY TYPE CODE TESTS RESULT OUT OF RANGE REFERENCE UNITS LAB L501.5200 1.6-2.6 mg/dL Normal MG 2.0 Performed By: #### L500.2500, L501.5200 #### [facility] [address] [facility] [place], [address] CHEST PA AND LATERAL Observed: 05/26/2018 Status: F Source: [place] 4:01 PM [facility] REPOSITORY [facility] Imaging Services [address] [place] [address] Chest PA and Lateral MR#: [id number] Acct: [id number] Name: JAMES BURK Rep #: [id number] : 1940 F 77 From: Renzo Max MD PCP: Tigre WEAVER,Romie Carballo Status: REG CLI Study: Chest PA and Lateral Date of Exam: 05/26/18 Exam# [id number] Ordering Dr: Romie Landeros MD STUDY: X-RAY CHEST REASON FOR EXAM: Female, 77 years old. Increased shortness of breath, history of left-sided breast cancer TECHNIQUE: PA and lateral views of the chest. COMPARISON: Previous study of 04/02/2018 FINDINGS: Right-sided pacemaker is present. There is a prominent interstitial pattern with peribronchial cuffing of the right lower lobe. There is small bibasilar effusions. Cardiomegaly is present. Status post sternotomy changes are seen. Normal mediastinum and irene. Normal visualized pulmonary arteries. There are calcified plaques of the aortic arch. Normal visualized thoracic spine. Normal visualized ribs, clavicles, and shoulders. There is no demonstrated abnormality of the visualized soft tissue structures of the upper abdomen. RAD/Chest PA and Lateral IMPRESSION: 1. Cardiomegaly. Status post sternotomy. 2. Small bibasilar pleural effusions, new in the interval. 3. Prominent interstitial pattern with peribronchial cuffing of the right lower lobe, similar to the previous study. 4. 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 5. A left breast implant is noted. Electronically Signed: Renzo Max MD at 16:35 EDT , Service support , CC: Romie Landeros MD Data Collector: Signed ABDOMEN SINGLE VIEW Observed: 05/26/2018 Status: F Source: [place] 4:01 PM [facility] REPOSITORY [facility] Imaging Services [address] [place] [address] Abdomen Single View MR#: [id number] Acct: [id number] Name: JAMES BURK Rep #: [id number] : 1940 F 77 From: Renzo Max MD PCP: Romie Landeros MD, Chi Status: REG CLI Study: Abdomen Single View Date of Exam: 05/26/18 Exam# [id number] Ordering Dr: Romie Landeros MD STUDY: X-RAY - ABDOMEN/PELVIS REASON FOR EXAM: Female, 77 years old. Nausea TECHNIQUE: Two AP supine views of the abdomen and pelvis. COMPARISON: None. FINDINGS: Bibasilar effusions are present. There is an unremarkable bowel gas pattern. There is no demonstrated free abdominal air. The visualized liver, spleen and kidneys are grossly normal in size and morphology. Normal soft tissue structures. Normal visualized osseous structures. RAD/Abdomen Single View IMPRESSION: Bibasilar pleural effusions are present. There is no evidence of ileus, obstruction, or free intraperitoneal air. Electronically Signed: Renzo Max MD at 16:36 EDT , Service support , CC: Romie Landeros MD Data Collector: Signed CBC W/DIFF, AUTOMATED Collected: 05/26/2018 Status: F Source: [place]A 3:34 PM [facility] REPOSITORY TYPE CODE TESTS RESULT OUT OF RANGE REFERENCE UNITS LAB L100.1000 4.4-11.0 K/mm3 Normal WBC 8.1 LAB L100.1200 4.2-5.4 M/mm3 Normal RBC 4.49 LAB L100.1300 12.0-15.0 g/dl Normal HGB 13.4 LAB L100.1400 37-47 % Normal HCT 40.8 LAB L100.1500 81-99 fL Normal MCV 90.9 LAB L100.1600 27.0-32.0 pg Normal MCH 29.8 LAB L100.1700 32-36 g/gl Normal MCHC 32.8 LAB L100.1810 11.6-14.6 % High RDW CV 15.3 LAB L100.1820 35.1-43.9 fl High RDW SD 50.0 LAB L100.1900 150-450 K/mm3 Normal PLT 162 LAB L100.2000 6.2-12.0 fl Normal MPV 11.1 LAB L100.2100 47-70 % High NEUT% 80.1 LAB L100.2200 19-41 % Low LY% 7.9 LAB L100.2300 0-10 % Normal MONO% 10.0 LAB L100.2400 0-5 % Normal EO% 1.4 LAB L100.2500 0-1 % Normal BASO% 0.2 LAB L100.2550 0.0-0.9 % Normal IM GRAN % 0.400 Result Comment: IG% - Immature Granulocytes (promyelocytes, myelocytes and metamyelocytes) > 1% indicates that a LEFT SHIFT is Present. LAB L100.2620 2.0-7.7 X10 3/uL Normal Absolute Neut 6.5 LAB L100.2720 0.83-4.51 X10 3/ul Low Absolute Lymph 0.64 Performed By: #### L100.0100 #### [facility] [address] [place], [place], [address] D-DIMER QUANTITATIVE Collected: 05/26/2018 Status: F Source: [place] (DVT/PE) 3:34 PM [facility] REPOSITORY TYPE CODE TESTS RESULT OUT OF RANGE REFERENCE UNITS LAB L300.8000 0.27-0.49 FEU/ug/m Low D-DIMER < 0.27 QUANT Result Comment: NORMAL D-Dimer level (<0.50) indicates no DVT or PE. Performed By: #### L300.8000 #### [facility] [address] [place], [place], [address] COMPREHENSIVE METABOLIC Collected: 05/26/2018 Status: F Source: [place] PROFIL 3:34 PM [facility] REPOSITORY TYPE CODE TESTS RESULT OUT OF RANGE REFERENCE UNITS LAB L501.0100 74-106 mg/dL High GLU 137 Result Comment: Fasting Glucose result greater than or equal to 126 mg/dL suggests DIABETES MELLITUS per A.D.A. criteria. Please note revised GLUCOSE reference range effective 2017. LAB L501.1000 7-18 mg/dL High BUN 20 LAB L501.1100 0.55-1.02 mg/dL Normal CREAT,SERUM 0.96 Result Comment: The validity of the calculated GFR AND GFRAA in patients over 70 years has not been determined. Clinical correlation is essential. LAB L501.1110 >60 mL/min Normal EST GFR 60 Result Comment: Non- GFR Calc LAB L501.1115 >60 mL/min Normal EST GFR - AA 72 Result Comment: GFR Calc LAB L501.1300 10-20 RATIO High BUN/CRE 20.8 LAB L501.1500 6.4-8.2 g/dL T Normal PROT 6.7 LAB L501.1800 3.2-5.0 g/dL Normal ALB 3.8 LAB L501.1950 2.2-4.2 g/dL Normal GLOB 2.9 LAB L501.2000 0.9-2.4 RATIO Normal A/G 1.3 LAB L501.2200 8.5-10.1 mg/dL CA Normal 9.3 LAB L501.4100 15-37 U/L Normal AST 25 LAB L501.4305 45-117 U/L High ALK P 127 LAB L501.4405 13-56 U/L Normal ALT 24 LAB L501.4600 0.20-1.00 mg/dL High T BILI 1.40 LAB L501.5300 136-145 mmol/L Low NA 131 LAB L501.5600 3.5-5.1 mmol/L High K 5.2 LAB L501.5900 98-107 mmol/L Low CL 97 LAB L501.6100 21.0-32.0 mmol/L Normal CO2 27.0 LAB L501.6200 5-15 Normal GAP 7 Performed By: #### L500.4050, L501.9520 #### [facility] [address] [facility] [place], [address] THYROID STIM HORMONE Collected: 05/26/2018 Status: F Source: [place] (TSH) 3:34 PM [facility] REPOSITORY TYPE CODE TESTS RESULT OUT OF RANGE REFERENCE UNITS LAB L501.9520 0.358-3.74 uIU/mL High TSH 5.87 Performed By: #### L500.4050, L501.9520 #### [facility] [address] [place], [address] BNP,B-TYPE NATRIURETIC Collected: 05/26/2018 Status: F Source: PRIS[place]LLA PEPTIDE 3:34 PM [facility] REPOSITORY TYPE CODE TESTS RESULT OUT OF RANGE REFERENCE UNITS LAB L503.6620 0-100 pg/mL High B-TYPE 1337.8 SAMANTHA PEP Performed By: #### L503.6620 #### [facility] [address] [facility] [place], [address] Observed: 05/26/2018 Status: F Source: [place] CULTURE, URINE 3:34 PM [facility] REPOSITORY Urine Culture Below infection level. ORGANISM 1: GPC Poss Enterococcus sp [place] Count 1000-10,000 ORGANISM 2: Mixed Gram Positive Organisms [place] Count 1000-10,000 MIX CULTURE Mixed contaminants. Submit a new specimen if indicated. Performed By: #### M100.0650 #### [facility] [address] [place], [address] PROTIME W/INR Collected: 05/15/2018 Status: F Source: PRIS[place]LLA FINGERSTICK 2:46 PM [facility] REPOSITORY TYPE CODE TESTS RESULT OUT OF REFERENCE UNITS RANGE LAB L9200.1001 11.9-14.4 SEC High PROTIME ISTAT 38.1 Result Comment: Reference Range 11.9 - 14.4 LAB L9200.2000 Normal INR ISTAT 3.40 Result Comment: Critical Value > 3.5 Performed By: #### L9200.0000 #### [facility] Point of Care [address] [place] [address] PACEMAKER CHECK Observed: 05/13/2018 Status: F Source: [place] 6:07 PM [facility] REPOSITORY [facility] [address] [place] [address] Pacemaker Check Date of Service: 05/13/18 1431 MR#: [id number] Acct: [id number] Name: JAMES BURK Rep #: [id number] : 1940 From: Shantal Peres Age/Sex: 77/F Location: [facility] Status: Signed Billing Codes ICD Device Billing: ICD Dev Interrogate (Rmt) 05/13/18 1432 <Electronically signed by Shantal Peres > Date Shantal Peres 05/13/18 1807<Electronically signed by John Hayden MD> Cosigner Signature: Date (if applicable) John Hayden MD CC: CBC W/DIFF, AUTOMATED Collected: 05/08/2018 Status: F Source: [place] 10:38 AM [facility] REPOSITORY TYPE CODE TESTS RESULT OUT OF RANGE REFERENCE UNITS LAB L100.1000 4.4-11.0 K/mm3 Normal WBC 6.8 LAB L100.1200 4.2-5.4 M/mm3 Normal RBC 4.48 LAB L100.1300 12.0-15.0 g/dl Normal HGB 13.1 LAB L100.1400 37-47 % Normal HCT 41.2 LAB L100.1500 81-99 fL Normal MCV 92.0 LAB L100.1600 27.0-32.0 pg Normal MCH 29.2 LAB L100.1700 32-36 g/gl Low MCHC 31.8 LAB L100.1810 11.6-14.6 % High RDW CV 15.5 LAB L100.1820 35.1-43.9 fl High RDW SD 52.1 LAB L100.1900 150-450 K/mm3 Low PLT 119 LAB L100.2000 6.2-12.0 fl Normal MPV 10.7 LAB L100.2100 47-70 % High NEUT% 77.7 LAB L100.2200 19-41 % Low LY% 9.8 LAB L100.2300 0-10 % High MONO% 10.9 LAB L100.2400 0-5 % Normal EO% 1.2 LAB L100.2500 0-1 % Normal BASO% 0.3 LAB L100.2550 0.0-0.9 % Normal IM GRAN % 0.100 Result Comment: IG% - Immature Granulocytes (promyelocytes, myelocytes and metamyelocytes) > 1% indicates that a LEFT SHIFT is Present. LAB L100.2620 2.0-7.7 X10 3/uL Normal Absolute Neut 5.3 LAB L100.2720 0.83-4.51 X10 3/ul Low Absolute Lymph 0.66 Performed By: #### L100.0100 #### [facility] [address] [place], [address] VITAMIN D,25 HYDROXY Collected: 05/08/2018 Status: F Source: [place] 10:38 AM [facility] REPOSITORY TYPE CODE TESTS RESULT OUT OF RANGE REFERENCE UNITS LAB L506.1000 29.95-100.01 ng/mL Normal Vitamin D 68.3 25-OH Result Comment: Vitamin D 25(OH) Status Range Deficiency <20 ng/mL (50nmol/L) Insuffciency 20 - 30 ng/mL (50 - 75 nmol/L) Sufficiency 30 - 100 ng/mL (75 - 250 nmol/L) Toxicity >100 ng/mL (>250 nmol/L) Performed By: #### L506.1000 #### [facility] [address] [place], [address] COMPREHENSIVE METABOLIC Collected: 05/08/2018 Status: F Source: [facility]A [facility] 10:38 AM [facility] REPOSITORY TYPE CODE TESTS RESULT OUT OF RANGE REFERENCE UNITS LAB L501.0100 74-106 mg/dL High GLU 135 Result Comment: Fasting Glucose result greater than or equal to 126 mg/dL suggests DIABETES MELLITUS per A.D.A. criteria. Please note revised GLUCOSE reference range effective 2017. LAB L501.1000 7-18 mg/dL High BUN 26 LAB L501.1100 0.55-1.02 mg/dL High CREAT,SERUM 1.04 Result Comment: The validity of the calculated GFR AND GFRAA in patients over 70 years has not been determined. Clinical correlation is essential. LAB L501.1110 >60 mL/min Low EST GFR 55 Result Comment: Non- GFR Calc LAB L501.1115 >60 mL/min Normal EST GFR - AA 66 Result Comment: GFR Calc LAB L501.1300 10-20 RATIO High BUN/CRE 25.0 LAB L501.1500 6.4-8.2 g/dL T Normal PROT 6.7 LAB L501.1800 3.2-5.0 g/dL Normal ALB 3.6 LAB L501.1950 2.2-4.2 g/dL Normal GLOB 3.1 LAB L501.2000 0.9-2.4 RATIO Normal A/G 1.2 LAB L501.2200 8.5-10.1 mg/dL CA Normal 9.3 LAB L501.4100 15-37 U/L Normal AST 31 LAB L501.4305 45-117 U/L High ALK P 137 LAB L501.4405 13-56 U/L Normal ALT 32 LAB L501.4600 0.20-1.00 mg/dL High T BILI 1.20 LAB L501.5300 136-145 mmol/L NA Normal 138 LAB L501.5600 3.5-5.1 mmol/L K Normal 4.4 LAB L501.5900 98-107 mmol/L Low CL 97 LAB L501.6100 21.0-32.0 mmol/L Normal CO2 31.0 LAB L501.6200 5-15 Normal GAP 10 Performed By: #### L500.4050, L501.9520 #### [facility] [address] [place], [address] THYROID STIM HORMONE Collected: 05/08/2018 Status: F Source: PRISCILLA (TSH) 10:38 AM [facility] [place] REPOSITORY TYPE CODE TESTS RESULT OUT OF RANGE REFERENCE UNITS LAB L501.9520 0.358-3.74 uIU/mL High TSH 3.95 Performed By: #### L500.4050, L501.9520 #### [facility] [place], [address] PROTIME W/INR Collected: 04/29/2018 Status: F Source: [place] FINGERSTICK 2:48 PM [facility] REPOSITORY TYPE CODE TESTS RESULT OUT OF REFERENCE UNITS RANGE LAB L9200.1001 11.9-14.4 SEC High PROTIME ISTAT 26.6 Result Comment: Reference Range 11.9 - 14.4 LAB L9200.2000 Normal INR ISTAT 2.30 Result Comment: Critical Value > 3.5 Performed By: #### [id number] #### [facility] Point of Care [address] [place] [address] PROTHROMBIN TIME W/INR Collected: 04/27/2018 Status: F Source: [place] 3:14 PM [facility] REPOSITORY Order Comment: Result obtained is for confirmation testing of Fingerstick PT/INR Specimen # [id number] . 04/27/18 1515 CDOTTERER2 THIS CONFIRMATION SPECIMEN RESULT IS FROM VENOUS BLOOD. TYPE CODE TESTS RESULT OUT OF REFERENCE UNITS RANGE LAB L300.4150 11.7-14.9 SECONDS High PROTIME 47.3 LAB L300.4200 High alert INR 5.1 Result Comment: CRITICAL VALUE VERIFIED. CALLED TO [facility] AT [facility] 04/27/18 1643 Johnna Rodríguez. RESULTS READ BACK BY SAME . Performed By: #### L300.3900 #### [facility] [address] [place], [address] PROTIME W/INR Collected: 04/27/2018 Status: F Source: [place] FINGER[place]ICK 2:55 PM [facility] REPOSITORY TYPE CODE TESTS RESULT OUT OF REFERENCE UNITS RANGE LAB L9200.1001 11.9-14.4 SEC High PROTIME ISTAT 66.8 Result Comment: Reference Range 11.9 - 14.4 LAB L9200.2000 High alert INR ISTAT > 6.00 Result Comment: Critical Value > 3.5 Performed By: #### [id number] #### [facility] Point of Care [address] [place] [address] PROTIME W/INR Collected: 04/06/2018 Status: F Source: [place] FINGER[place]ICK 2:33 PM [facility] REPOSITORY TYPE CODE TESTS RESULT OUT OF REFERENCE UNITS RANGE LAB L9200.1001 11.9-14.4 SEC High PROTIME ISTAT 25.1 Result Comment: Reference Range 11.9 - 14.4 LAB L9200.2000 Normal INR ISTAT 2.20 Result Comment: Critical Value > 3.5 Performed By: #### [id number] #### [facility] Point of Care [address] [place] [address] 12 LEAD ELECTROCARDIOGRAM Observed: 04/03/2018 Status: F Source: [place] 1:51 PM [facility] REPOSITORY [facility] Cardiovascular Services [address] [place] [address] 12 Lead EKG 04/02/18 0010 MR#: [id number] Acct: [id number] Name: JAMES BURK Rep #: [id number] : 1940 77 From: Rohan Whitehead MD Attending Dr: Wilda Eugene Status: DIS NICK Ordering Dr: Rd Caceres MD Date: 04/02/18 Location: [facility] Sex: F C Admitted: 04/02/18 Test Reason : CP Blood Pressure : / mmHG Vent. Rate : 085 BPM Atrial Rate : 102 BPM P-R Int : 000 ms QRS Dur : 170 ms QT Int : 436 ms P-R-T Axes : 000 -73 102 degrees QTc Int : 518 ms Ventricular-paced rhythm Abnormal ECG Confirmed by ROHAN WHITEHEAD MD ([id number]), editorial intern ERIBERTO JIMENEZ ([id number]) on 04/03/2018 1:50:29 PM Referred By: MYRNA Confirmed By:ROHAN WHITEHEAD MD 04/03/18 1350 Date Rohan Whitehead MD CC: Wilda Eugene; Rd Caceres MD; Romie Landeros MD Signed DISCHARGE SUMMARY Observed: 04/02/2018 Status: F Source: [place] 1:59 PM [facility] REPOSITORY [facility] Medical Records Department [address] [place] [address] Discharge Summary 04/02/18 1346 MR#: [id number] Acct: [id number] Name: JAMES BURK Rep #: [id number] : 1940 77 From: Jennifer Bruce PERSONNEL GENERALIST MANAGER-C PCP: Tigre WEAVER,Romie Carballo Status: ADM NICK Y Location: [place] [address] ADDENDUM by Wilda Eugene on 04/02/18 at 1359 Code Visit ATTENDING PHYSICIAN DISCHARGE NOTE: I have seen and examined the patient independently and agree with the assessment, plan, history per Jennifer Bruce as noted. Discharge Diagnoses: (1) Chest Pain, Suspected Non-cardiac, unremarkable stress testing, enzymes and telemetry, DECLINED CT Chest for further evaluation (2) Hyperglycemia w/ Prediabetes Hx, last HgBA1c 6%, now 6.4% (3) Chronic systolic CHF (4) Dilated Cardiomyopathy (5) Hypertension (6) Hyperlipidemia (7) Hypothyroidism (8) Chronic Atrial Fibrillation/Flutter (9) Valvular Heart Disease (10) Former Tobacco Use (11) Possible GERD Discharge Summary: The patient is a 77 y/o F w/ PMHx: Hypothyroidism, Chronic Atrial Fibrillation/Flutter, Dilated Cardiomyopathy, Chronic Systolic CHF, s/p ACID/pacemaker, Hyperglycemia with HgbA1c 6.4% (Prediabetes mellitus), HTN, HLD, GERD, Anxiety who presents who presents to the [facility] ED on 04/12/18 w/ history of aggressively worsening chest discomfort at rest lasting approximately 1 hour prior to ED arrival when attempting to go to bed with radiation toward the back. EKG in ED paced without acute findings, CXR w/ chronic COPD appearing changes, initial trop 0.21. Advised CT chest but patient refused secondary to contrast allergy and preference to avoid pre-medication regimen understanding of risks of not performing this study. Admitted to PCU, maintained on a monitored bed to assure no acute myocardial infarction with serial cardiac enzymes and EKGs which remained unremarkable. 04/02/18 Nuclear cardiac stress testing performed and negative for inducible ischemia. Cardiology advised discharge to home with no medication changes. Again, encouraged CT chest but declined. Encouraged improved lifestyle and diet changes given increased HgbA1c 6.4% from prior 6% with recommendation for re-evaluation with PCP following these intervention attempts for consideration oral regimen addition if appropriate. Reflux regimen added in case reflux as etiology for presentation. Discharge Time: 35 Minutes DAY OF DISCHARGE NOTE: Subjective: Patient had onset of recurrent midsternal chest discomfort with pressure and stabbing sensation rated 10 out of 10 in the evening but since then has been chest pain free. She notes that it had radiated toward her back but had declined CTA secondary to renal dysfunction. Patient status post stress testing with impression negative for ischemia and findings most consistent with cardiomyopathy. Patient denies fevers, chills, nausea, emesis, abdominal pain or dyspnea. VS: T 98.7, heart rate 91, BP 118/60, respiratory rate 16, 98% on room air. Physical Examination: General: awake, alert, oriented x 3 and cooperative, seated upright in bed in no apparent distress. Skin: normal color, turgor, no icterus, cyanosis. HEENT: AT/NC, EOMI, PERRLA, MMM. Lungs: CTA bilaterally, moderate effort, mild decrease BL bases, no rales, ronchi or wheezing. Heart: Regular rate and rhythm (paced); no gallop, rub audible, reproducible chest discomfort, SM, s/p MVR. Abdomen: soft, thin habitus, NTTP, ND, normal BS. Extremities: no cyanosis, clubbing, or edema. Neurological: patient awake, alert, oriented x 3; cognitive function intact; pupils equally reactive to light and accomodation; cranial nerves II-XII grossly normal, moving all 4 extremities, no focal deficits, strength mildly globally decreased. Psychiatric: affect appears normal, no acute evidence of depressive or anxiety feelings. Assessment and Plan: See discharge summary above. OBSV E AND M: [id number] Observ/hosp same date L3 04/02/18 1359 <Electronically signed by Wilda Eugene > Date Wilda Eugene cc: CATALINO Bruce; Wilda Eugene; Romie Landeros MD * Signed Discharge Date and Diagnosis Date of Admission: 04/02/18 Date of Discharge: 04/02/18 - Primary Discharge Diagnosis Active and Suspected Problems (Last Reviewed 04/02/18 @ 07:43 by Williams Yousif MD) 1. Chest pain, suspect musculoskeletal versus possible reflux - Secondary Discharge Diagnosis Chronic Problems (Last Reviewed 04/02/18 @ 07:43 by Williams Yousif MD) Chronic systolic congestive heart failure (Chronic) Atrial fibrillation (Chronic) Atrial flutter (Chronic) Dilated cardiomyopathy (Chronic) Presence of implantable cardioverter-defibrillator (ICD) (Chronic) History of mitral valve replacement (Chronic 06/1997) St. 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) FCI current use of 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) Anxiety states (Chronic) Cardiac pacemaker (Chronic) Type II diabetes mellitus, uncontrolled (Chronic) History of esophageal reflux (Chronic) History of mitral valve disorder (Chronic) HLD (hyperlipidemia) (Chronic) HTN (hypertension) (Chronic) Hospital Course and Treatment Imaging Results: Diagnostic Data Chest X-Ray 04/02/18 00:41 IMPRESSION: 1. Questionable left-sided airspace disease and/or atelectasis. Some of this appearance may be related to overlying soft tissues. 2. COPD. Electronically Signed: Flaca Jimenez MD at 1:50 EDT , Service support , Dr. Hayden- Cardiology Operations: None Procedures: Stress test Summary of Care Provided: The patient is a 77 year old F admitted 04/02/2018 due to chest pain. She has a past medical history of non-CAD cardiomyopathy status post ICD, chronic systolic CHF, paroxysmal atrial fibrillation, status post mitral valve replacement, hypertension, hyperlipidemia, hypothyroidism, type 2 diabetes mellitus, former tobacco use, history of breast cancer status post right mastectomy. 1. Chest pain with indeterminate troponin-ACS ruled out. EKG without ST-T changes. Troponin 0.021, 0.028. Cardiology consulted. Patient follows with Dr. Hayden. Nuclear stress test completed, which was consistent with cardiomyopathy. No evidence of acute ischemia. Patient stable for discharge home on previous medication regimen. Follow-up with cardiology in 1-2 weeks. CTA of chest was discussed on admission and patient declined due to contrast allergy. Patient denies further chest pain during admission. Patient was placed on PPI at discharge to see if this helps her symptoms, should chest pain return. 2. Non-CAD cardiomyopathy-status post ICD. Continue home medication regimen. 3. Chronic systolic CHF-echocardiogram 06/17/2017 showed an EF of 20%, severe global left ventricular systolic dysfunction, mild global right ventricular systolic dysfunction, moderately enlarged left atrium, stable appearing mechanical mitral valve, moderate tricuspid valve insufficiency, trivial aortic valve insufficiency, RVSP estimated to be 33 mmHg. Continue home carvedilol, spironolactone, furosemide regimen. Chest x-ray on admission without evidence of CHF. 4. Paroxysmal atrial fibrillation/atrial flutter-continue Coumadin regimen. Trend INR. Continue carvedilol. Currently atrial paced on telemetry. 5. Status post ICD-pacer check 02/02/2018. 6. Status post mitral valve replacement 7. Hypertension-stable, continue spironolactone and Coreg regimen. 8. Hyperlipidemia-continue statin. 9. Hypothyroidism-continue home [place] Thyroid regimen. 10. Type 2 diabetes mellitus-most recent hemoglobin A1c 11/04/2014 6%. Repeat hemoglobin A1c during admission 6.4%. Discussed with patient carb control diet. Continue outpatient follow-up. General: Alert, Oriented x3, Cooperative HEENT: Atraumatic, PERRLA, EOMI, Normocephalic Neck: Supple, No JVD, Negative Carotid Bruits Lungs: Clear to auscultation, Normal air movement Cardiovascular: Regular rate, Regular Rhythm, Normal S1, Normal S2, Murmur - Click Abdomen: Bowel Sounds Present, Soft, Non Tender, Non-Distended Extremities: No clubbing, No cyanosis, No edema, Capillary Refill Less than 3 Seconds Skin: No rashes, No breakdown Musculoskeletal: No Tenderness to Palpation of Joints or Extremities Neurological: Cranial nerves II-XII grossly intact, Neuro grossly intact Psych/Mental Status: Normal Affect, Appropriate Patient seen exam prior to discharge. Physical assessment as noted above. Patient is stable for discharge home with further follow-up with primary care physician and cardiology. This patient was seen by CATALINO Waterman under the supervision of Dr. Eugene. Discharge Diet: Carb Control Diet Discharge Activity: Return to Normal Activity Call your doctor if you observe: Shortness of breath, Dizziness, Fainting spells, Chest pain, Increased palpitations (irregular heartbeat) Home Medications: Medications to take at Discharge Carvedilol [Coreg (Beta Khadijah)] 25 mg PO BID 03/28/15 Furosemide [Lasix] 40 mg PO DAILY 03/28/15 Lorazepam [Ativan] 0.5 mg PO DAILY PRN PRN 03/28/15 traMADol [Ultram] 50 mg PO BID PRN 03/28/15 Aspirin [Aspirin, Baby] 81 mg PO DAILY@0800 08/01/17 Multivitamin [Daily Multiple Vitamin] 1 ea PO DAILY 08/01/17 Spironolactone 25 mg PO DAILY 08/01/17 calcium phosphate-vitamin D3 250 mg calcium-500 unit chewable tablet 1 tab PO DAILY ea 08/04/17 thyroid (pork) 15 mg tablet 45 mg PO DAILY 08/04/17 pravastatin 20 mg tablet 20 mg PO QHS #90 tab 08/25/17 folic acid 1 mg tablet 1 mg PO DAILY tab 02/04/18 potassium chloride ER 10 mEq tablet,extended release 10 meq PO BID tab 02/04/18 warfarin 5 mg tablet 5 mg PO .COMPLEX #90 tab 03/03/18 Pantoprazole Sodium [Protonix] 40 mg PO DAILY #30 tab 04/02/18 Following Prescrptions Were Given to Patient: Pantoprazole Sodium [Protonix] 40 mg PO DAILY #30 tab Primary Care Physician: Romie Landeros Chi, MD [Primary Care Provider] - Please follow up with your Primary Care Physician in: 1 Week Please Follow Up With: John Hayden MD - May see PERSONNEL GENERALIST MANAGER/PA When: 1-2 Weeks Disposition: Home Minutes spent on discharge:: 35 Patient Condition:: Stable Medical Necessity - Tobacco Use Smoking Status: Former smoker Tobacco Use: Non-smoker Meaningful Use Info Meaningful Use Diagnoses (Choose all that apply): None applicable 04/02/18 1353 <Electronically signed by Jennifer BAE> Date Jennifer GLOVERC 04/02/18 1358<Electronically signed by Wilda Eugene > Cosigner Signature (if applicable): Date Wilda Eugene CC: PERSONNEL GENERALIST MANAGEROliverC Jennifer Bruce; Wilda Eugene; Romie Landeros MD Signed DISCHARGE INSTRUCTION Observed: 04/02/2018 Status: F Source: [place] 1:47 PM [facility] REPOSITORY [facility] Medical Records Department [address] [place] [address] Instructions for Home/Discharge Instructions 04/02/18 1344 MR#: [id number] Acct: [id number] Name: JAMES BURK Rep #: [id number] : 1940 77 From: Jennifer BAE PCP: Romie Landeros MD, Chi Status: ADM NICK - Discharge Diagnoses Current Active Problems: Current Active and Chronic Problems (Last Reviewed 04/02/18 @ 07:43 by Williams Yousif MD) Chest pain (Acute) You will use the following diet at home:: Other - Carb Control Discharge Activity: Return to Normal Activity Call your doctor if you observe: Shortness of breath, Dizziness, Fainting spells, Chest pain, Increased palpitations (irregular heartbeat) Allergies/Adverse Reactions: Allergies HERMILO Inhibitors Allergy (Verified 04/02/18 00:13) Unknown amiodarone Allergy (Verified 04/02/18 00:13) Unknown Iodinated Contrast- Oral and IV Dye [CONTRASTS] Adverse Reaction (Verified 04/02/18 00:13) I JUMP AROUND ON THE TABLE iodine Adverse Reaction (Verified 04/02/18 00:13) I JUMP AND FLOP AROUND ON THE TABLE Medications to take at Discharge Carvedilol [Coreg (Beta Khadijah)] 25 mg PO BID 03/28/15 Furosemide [Lasix] 40 mg PO DAILY 03/28/15 Lorazepam [Ativan] 0.5 mg PO DAILY PRN PRN 03/28/15 traMADol [Ultram] 50 mg PO BID PRN 03/28/15 Aspirin [Aspirin, Baby] 81 mg PO DAILY@0800 08/01/17 Multivitamin [Daily Multiple Vitamin] 1 ea PO DAILY 08/01/17 Spironolactone 25 mg PO DAILY 08/01/17 calcium phosphate-vitamin D3 250 mg calcium-500 unit chewable tablet 1 tab PO DAILY ea 08/04/17 thyroid (pork) 15 mg tablet 45 mg PO DAILY 08/04/17 pravastatin 20 mg tablet 20 mg PO QHS #90 tab 08/25/17 folic acid 1 mg tablet 1 mg PO DAILY tab 02/04/18 potassium chloride ER 10 mEq tablet,extended release 10 meq PO BID tab 02/04/18 warfarin 5 mg tablet 5 mg PO .COMPLEX #90 tab 03/03/18 Pantoprazole Sodium [Protonix] 40 mg PO DAILY #30 tab 04/02/18 The following prescriptions were given: Pantoprazole Sodium [Protonix] 40 mg PO DAILY #30 tab Primary Care Physician: Romie Landeros Chi, MD [Primary Care Provider] - Please follow up with your Primary Care Physician in: 1 Week Test Results: Test results from this visit will be discussed in further detail at your follow-up appointment, if applicable. Please Follow Up With: John Hayden MD - May see PERSONNEL GENERALIST MANAGER/PA When: 1-2 Weeks Proposed Discharge Date: 04/02/18 04/02/18 3388 <Electronically signed by Jennifer Teo PERSONNEL GENERALIST MANAGER-C> Date Jennifer Bruce PERSONNEL GENERALIST MANAGER-C CC: John Hayden MD; Romie Landeros MD CONSULTATION Observed: 04/02/2018 Status: F Source: [place] 1:23 PM [facility] REPOSITORY [facility] Medical Records Department [address] [place] [address] Consultation 04/02/18 0926 MR#: [id number] Acct: [id number] Name: JAMES BURK Rep #: [id number] : 1940 77 From: John Hayden MD PCP: Romie Landeros MD, Chi Status: ADM NICK Y Location: [place] [address] Problem List (1) Chest pain Status: Acute (2) Dilated cardiomyopathy Status: Chronic (3) Chronic systolic congestive heart failure Status: Chronic (4) History of mitral valve replacement Status: Chronic Comment: St. Driss #27mm 06/1997 (5) Atrial dysrhythmia Status: Acute (6) Ventricular tachycardia Status: Acute (7) Presence of implantable cardioverter-defibrillator (ICD) Status: Chronic (8) HLD (hyperlipidemia) Status: Chronic Qualifiers: Hyperlipidemia type: unspecified Qualified Code(s): E78.5 - Hyperlipidemia, unspecified (9) HTN (hypertension) Status: Chronic Qualifiers: Hypertension type: essential hypertension Qualified Code(s): I10 - Essential (primary) hypertension (10) Type II diabetes mellitus, uncontrolled Status: Chronic Reason for Consult Date of Consultation: 04/02/18 History of Present Illness: The patient is a 77 year old white female with a past medical history of a non-CAD related cardiomyopathy, chronic systolic CHF, status post mitral valve replacement-mechanical, atrial dysrhythmia, ventricular tachycardia, ICD, hyperlipidemia, hypertension, and diabetes mellitus who is referred for evaluation of chest pain. She states yesterday evening, when preparing for bed, she felt a epigastric/lower sternal chest discomfort which appeared to radiate towards her back. It did not radiate towards her neck, jaw, or upper extremities. She denied any acute shortness of breath or dyspnea. She denied any associated nausea, emesis, or diaphoresis. She states she felt warm. Her brought her to the emergency department for further evaluation. She states she was evaluated, treated with morphine sulfate, and her discomfort subsequently dissipated. She did have troponin I levels performed. They were indeterminate. Her ECGs have demonstrated a combination of atrial paced rhythm with consideration for voltage criteria for LVH as well as nonspecific ST and T-wave changes versus an underlying AV paced rhythm. She did have a chest x-ray performed. She had postsurgical changes. There did not appear to be any acute changes. Per radiology she was noted to have what was referred to as airspace disease and findings compatible with COPD (please see official report). [] Past Medical History Allergies/Adverse Reactions: Allergies HERMILO Inhibitors Allergy (Verified 04/02/18 00:13) Unknown amiodarone Allergy (Verified 04/02/18 00:13) Unknown Iodinated Contrast- Oral and IV Dye [CONTRASTS] Adverse Reaction (Verified 04/02/18 00:13) I JUMP AROUND ON THE TABLE iodine Adverse Reaction (Verified 04/02/18 00:13) I JUMP AND FLOP AROUND ON THE TABLE Home Medications: Ambulatory Orders Medication Instructions Recorded Past Medical History (Chronic Problems): Chronic Problems (Last Reviewed 04/02/18 @ 07:43 by Williams Yousif MD) Chronic systolic congestive heart failure (Chronic) Atrial fibrillation (Chronic) Atrial flutter (Chronic) Dilated cardiomyopathy (Chronic) Presence of implantable cardioverter-defibrillator (ICD) (Chronic) History of mitral valve replacement (Chronic 06/1997) St. 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) [facility]CI current use of 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) Anxiety states (Chronic) Cardiac pacemaker (Chronic) Type II diabetes mellitus, uncontrolled (Chronic) History of esophageal reflux (Chronic) History of mitral valve disorder (Chronic) HLD (hyperlipidemia) (Chronic) HTN (hypertension) (Chronic) Surgical History: pacemaker implantation - *Family History Maternal Family History: Family History (Last Updated 04/02/18 @ 03:50 by Williams Yousif MD) Father Hypertension Cancer Mother Cancer Hypertension Lives: Spouse/ Significant Other Smoking Status: Former smoker Tobacco Use: Non-smoker Alcohol: Rare Drugs: None Review of Systems - Review of Systems General: Denies: Fever, Night Sweats, Fatigue Cardiovascular: Reports: Chest Discomfort, Chest Discomfort at Rest, Palpitations. Denies: Shortness of Breath, Orthopnea, PND, Peripheral Edema, Lightheadedness, Dizziness, Near Syncope, Syncope Respiratory: Denies: Cough, Sputum Production, Hemoptysis Gastrointestinal: Denies: Hematemesis, Hematochezia, Melena Genitourinary: Denies: Dysuria, Hematuria Skin: Denies: Rash Subjectve: This is a 77-year-old white female who appears to be resting comfortably at the moment in no acute distress. Objective: Vital Signs Temp Pulse Resp BP Pulse Ox 98.7 F 91 16 118/60 98 04/02/18 08:50 04/02/18 08:50 04/02/18 08:50 04/02/18 08:50 04/02/18 08:50 Oxygen Delivery Method Room Air Weight: 116 lb 3.2 oz Body Mass Index (BMI) 21.2 Intake and Output for Last 24 Hours Intake Total 0 / 0 Balance 0 / 0 General: Awake, Alert, Oriented x 3, Cooperative, No Acute Distress HEENT: Atraumatic, Normocephalic, PERRL, EOMI, Sclera Non Icteric Oral: Moist Mucosa Neck: Supple, Good ROM, No JVD Chest Wall: Midline Sternotomy Incision Lungs: Clear to auscultation Cardiovascular: Regular Rhythm, Normal S2, [place] Prosthetic S1 Vascular: No Carotid Bruits Abdomen: Bowel Sounds Present, Soft, Non Tender Extremities: No Cyanosis, No Clubbing, No edema Psych/Mental Status: Appropriate, Normal Affect 04/02/18 04:34: Troponin I 0.031 04/02/18 06:55: Troponin I 0.028 Rhythm: Atrial paced rhythm; AV paced rhythm EKG: Atrial paced rhythm; consider voltage criteria for LVH; nonspecific ST and T-wave abnormality ECHO: 06/17/2017: Left ventricle: Dilated: Severe global left ventricular systolic dysfunction: Estimated LVEF 20%: Mild global right ventricular systolic dysfunction: Moderate left atrial enlargement: Stable appearing mechanical mitral valve apparatus: Moderate TR: Mild diffuse aortic valve thickening with trivial AI: Estimated RV systolic pressure of 33 mmHg: ICD wires in the right atrium and right ventricle Stress Test: 05/01/2017: Pharmacologic stress nuclear imaging study: Findings compatible with soft tissue attenuation/artifact and/or detraction secondary to extracardiac/gastrointestinal tracer uptake along with the effects of an underlying electronic ventricular paced rhythm with an area of previous myocardial injury/infarction cannot necessarily be excluded with no myocardial perfusion changes consider diagnostic for stress- induced myocardial ischemia with a gated LVEF of 25% Cardiac Cath: 08/21/2004: [facility]: Elevated left ventricular end-diastolic pressure: Global left ventricular systolic dysfunction with an estimated LVEF of 35-40%: Left main coronary artery normal: LAD status post first diagonal branch with 10% tubular type stenosis: First diagonal branch with ostial 10% tubular type stenosis: LCx tortuous and angiographically normal: RCA with diffuse 10% minimal luminal irregularities: Mitral valve demonstrating a stable appearing [place] mitral valve apparatus without obvious leaflet restriction with notation of trace MR following PVCs and left ventriculogram Electrophysiology study: 08/22/2004: [facility]: Inducible ventricular tachycardia with poor hemodynamic tolerance ICD: [employer]icon Energen ICD IS-1/DF-1 model number E143 serial #[id number] implanted on 03/31/2015 as a dual-chamber implantable defibrillator Open heart surgery report: [facility]: 06/21/1997: 27 mm [place] mechanical mitral valve CXR: Please see official report Assessment/Plan 1. Chest pain The patient experienced chest discomfort/back discomfort. The etiology is unclear at this time. There are concerns as to whether this represents cardiovascular disease with underlying CAD, based upon her clinical course and indeterminate troponin I levels, versus a non-CAD component based upon her underlying cardiomyopathy, etc., versus a noncardiovascular issue. At the present time she is being monitored. Her cardiac enzymes, rhythm, and electrocardiogram are being followed. She is undergoing repeat pharmacologic stress nuclear imaging study to evaluate for any obvious significant change compared to her previous study that would lead for the need for interruption of her anticoagulation therapy and subsequent repeat diagnostic cardiac catheterization. She needs to be monitored for any noncardiovascular issues that may explain her discomfort as well. This could include the need for a chest CT scan to look for other etiologies of her chest and and back discomfort. 2. Non-CAD related cardiomyopathy The patient has a non-CAD related cardiomyopathy. She has been evaluated noninvasively and invasively in the past. She has been treated medically. She has also received ICD therapy over time. She will continue evaluation and care as deemed appropriate. 3. Chronic systolic CHF The patient does not appear to have any acute on chronic systolic CHF issues at the moment. She will continue to be monitored for any changes. Her cardiovascular status will be reassessed as noted above. She will continue medical therapy in the interim. 4. Atrial and ventricular dysrhythmias The patient has had underlying atrial and ventricular dysrhythmias. From an atrial standpoint there have been concerns of fibrillation/flutter. She has been evaluated by electrophysiology. She has been treated medically. From a ventricular standpoint she has had inducible ventricular tachycardia. Again she has been treated medically. She does have an ICD in place. 5. ICD She does have an ICD in place. She states it did not discharge during her discomfort. It can be reassessed as needed. 6. Hyperlipidemia She will continue medical management as tolerated. 7. Hypertension Her blood pressures will be followed. Her medications can be adjusted as needed. 8. Diabetes mellitus She will need to continue under evaluation care per her primary care physicians for this. The above was discussed and reviewed with the patient. This note was generated with [employer] dictation software. It may contain incorrect words, spelling, and punctuation that were not noted in checking the note before signing. 04/02/18 1323 <Electronically signed by John Hayden MD> Date John Hayden MD Cosigner Signature (if applicable): Date CC: John Hayden MD; Romie Landeros MD Signed STRESS REPORT Observed: 04/02/2018 Status: F Source: [place] 12:58 PM [facility] REPOSITORY [facility] Cardiovascular Services [facility] [place] [place] [address] MR#: [id number] Acct: [id number] Name: BHARGAVIJAMES J Rep #: [id number] : 1940 77 From: John Hayden MD Primary Care: Romie Landeros MD, Chi Status: ADM NICK Ordering Dr: Sex: F C Stress Test Report Date: 04/02/2018 Procedure: Pharmacologic stress nuclear imaging study Indications: Chest pain; cardiomyopathy; status post mitral valve replacement; atrial dysrhythmia; ventricular dysrhythmias; ICD Consent: Per the patient Procedure: The patient underwent pharmacologic (Regadenoson) evaluation with a peak heart rate of 77 beats per minute (53 predicted maximal heart rate) and a peak blood pressure of 122/80 mmHg. The baseline ECG demonstrated atrial paced, consider LVH, nonspecific ST and T-wave abnormality. The peak pharmacologic ECG demonstrated no obvious ECG changes. There were occasional PACs during infusion and recovery. [There was no complaint of chest discomfort during pharmacologic infusion or recovery]. The examination was discontinued secondary to completion of protocol. Impression: 1. Pharmacologic (Regadenoson) evaluation 2. Peak pharmacologic ECG with no obvious ECG changes. 3. There were occasional PACs during infusion and recovery 4. Nuclear images pending Myocardial perfusion imaging study: Technique: The patient was injected with 11.6 millicuries of technetium 99m Cardiolite and subsequently rest SPECT Cardiolite nuclear imaging was obtained in the horizontal long, vertical long, and short axis views. The patient underwent pharmacologic (Regadenoson) evaluation with a peak heart rate of 77 beats per minute (53 % percent predicted maximal heart rate) and a peak blood pressure of 122/80 mmHg. The patient was injected with 33.9 millicuries of technetium 99m Cardiolite and subsequently stress SPECT Cardiolite nuclear imaging was obtained in the horizontal long, vertical long, and short axis views. A gated Cardiolite study at peak stress was obtained. Interpretation: Rest and stress SPECT Cardiolite nuclear imaging status post realignment, normalization, and attenuation correction demonstrate at rest areas of diminished tracer uptake in portions of the basal inferoseptal, basal inferior, and basal inferolateral segments which appear to improve and/or normalize following stress. Otherwise there appears to be relative uniform tracer uptake.. There is diminished end systolic thickening and brightening.. The gated Cardiolite study demonstrates diminished myocardial thickening and inward wall motion.. The reported LVEF is 23 %. Impression: 1. Rest and stress SPECT Cardiolite nuclear imaging demonstrate myocardial perfusion changes more prominent at rest as opposed to stress appearing compatible shifting soft tissue attenuation/artifact with no myocardial perfusion changes consider diagnostic for associated stress-induced myocardial ischemia or previous myocardial injury/infarction. 2. Rest and stress SPECT cardio nuclear imaging also demonstrate myocardial perfusion changes appearing suggestive of of left ventricular dilatation. 3. The gated Cardiolite study reports an LVEF of 23 %. This note was generated with [employer] dictation software. It may contain incorrect words, spelling, and punctuation that were not noted in checking the note before signing. 04/02/18 1258 <Electronically signed by John Hayden MD> Date John Hayden MD CC: Wilda Eugene; Romie Landeros MD Date Dictated: 04/02/181252 Date Transcribed: 04/02/181252 Data Collector: PM Signed POTASSIUM Collected: 04/02/2018 Status: F Source: [place] 11:55 AM [facility] [place] REPOSITORY TYPE CODE TESTS RESULT OUT OF RANGE REFERENCE UNITS LAB L501.5600 3.5-5.1 mmol/L Normal K 3.8 Performed By: #### L501.5600 #### [facility] [address] [place], [address] HISTORY AND PHYSICAL Observed: 04/02/2018 Status: F Source: [place] EXAM 7:44 AM [facility] [place] REPOSITORY [facility] Medical Records Department [address] [place] [id number] History and Physical 04/02/18 0245 MR#: [id number] Acct: [id number] Name: JAMES BURK Rep #: [id number] : 1940 77 From: Williams Yousif MD PCP: Romie Landeros MD, Chi Status: ADM NICK Y Location: [place] [address] Problem List (1) Chest pain Status: Acute (2) Atrial fibrillation Status: Chronic (3) Atrial flutter Status: Chronic (4) Dilated cardiomyopathy Status: Chronic History of Present Illness Date of Admission: 04/02/18 Chief Complaint: Chest pain The patient is a 77 year old F with a significant history of former tobacco use; hypertension, atrial fibrillation/atrial flutter status post ablation; permanent pacemaker with defibrillation; mechanical mitral valve; chronic anticoagulation with Coumadin; systolic heart failure with last ejection fraction 20%; left breast cancer x2 status post mastectomy,muscle removal and reconstruction, and radiation; who presents with progressively worsening chest pain while at rest. Her chest pain started about 1 hour prior to arrival at emergency department. Her chest pain radiated to her back. She denied any diaphoresis, nausea or vomiting. The emergency department doctor wanted to do a CT scan of her chest with contrast but because of a reported allergy to contrast; CT scan of the chest could not be done. Patient reports that she has seizures and low blood pressure with IV contrast. Patient had a stress test last year and it was unremarkable. She follows up with Dr. Hayden. Past Medical History Past Medical History (Chronic Problems): Chronic Problems (Last Reviewed 02/04/18 @ 15:15 by Adrianne Hoover) Chronic systolic congestive heart failure (Chronic) Atrial fibrillation (Chronic) Atrial flutter (Chronic) Dilated cardiomyopathy (Chronic) Presence of implantable cardioverter-defibrillator (ICD) (Chronic) History of mitral valve replacement (Chronic 06/1997) 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) Anxiety states (Chronic) Cardiac pacemaker (Chronic) Type II diabetes mellitus, uncontrolled (Chronic) History of esophageal reflux (Chronic) History of mitral valve disorder (Chronic) HLD (hyperlipidemia) (Chronic) HTN (hypertension) (Chronic) Medical History: Medical History (Last Reviewed 04/02/18 @ 07:43 by Williams Yousif MD) Atrial dysrhythmia (Acute) I49.8 Ventricular tachycardia (Acute) I47.2 Chronic systolic congestive heart failure (Chronic) I50.22 Atrial fibrillation (Chronic) I48.91 Atrial flutter (Chronic) I48.92 Dilated cardiomyopathy (Chronic) I42.0 History of mitral valve replacement (Chronic) Onset Date: 06/1997 Z98.890, Z95.2 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) Z79.01 Anxiety states (Chronic) F41.1 Cardiac pacemaker (Chronic) Z95.0 Type II diabetes mellitus, uncontrolled (Chronic) E11.65 History of esophageal reflux (Chronic) Z87.19 History of mitral valve disorder (Chronic) Z86.79 HLD (hyperlipidemia) (Chronic) E78.5 HTN (hypertension) (Chronic) I10 Fibromyalgia M79.7 History of breast cancer Z85.3 Allergies HERMILO Inhibitors Allergy (Verified 04/02/18 00:13) Unknown amiodarone Allergy (Verified 04/02/18 00:13) Unknown Iodinated Contrast- Oral and IV Dye [CONTRASTS] Adverse Reaction (Verified 04/02/18 00:13) I JUMP AROUND ON THE TABLE iodine Adverse Reaction (Verified 04/02/18 00:13) I JUMP AND FLOP AROUND ON THE TABLE Home Medications: Ambulatory Orders Medication Instructions Recorded Surgical History: Surgical History (Last Reviewed 04/02/18 @ 07:43 by Williams Yousif MD) Presence of implantable cardioverter-defibrillator (ICD) (Chronic) Z95.810 History of breast implant Z98.82 History of knee surgery Z98.890 History of mastectomy Z90.10 Left History of tonsillectomy and adenoidectomy Z98.890 Surgical History: pacemaker implantation Lives: Spouse/ Significant Other Smoking Status: Former smoker Tobacco Use: Non-smoker Alcohol: Rare Drugs: None - *Family History Maternal Family History: Family History (Last Updated 04/02/18 @ 03:50 by Williams Yousif MD) Father Hypertension Cancer Mother Cancer Hypertension Review of Systems Constitutional: Denies: Chills, Fever, Weight Change Eyes: Denies: Pain HEENT: Denies: Head Aches, Sinus Congestion, Sinus Drainage Cardiovascular: Reports: Chest Pain Respiratory: Denies: Cough, Shortness of breath at rest, Sputum production Gastrointestinal: Denies: Abdominal Pain, Nausea, Vomiting Genitourinary: Denies: Dysuria Musculoskeletal: Reports: Back Pain Skin: Denies: Rash, Wounds Neurological: Denies: Numbness, Tingling, Focal weakness Psychiatric: Denies: Anxiety, Depression, Homicidal Ideations, Suicidal Ideations Hematologic/ Lymphatic: Denies: Easy Bruising, Easy Bleeding VTE Information - Inpt Only VTE Present on Admission: No VTE Mechan Device Prophylaxis: None VTE Pharm Prophylaxis ordered?: No Reason prophylaxis not ordered:: Treatment Not Indicated - Already on anticoagulation with Coumadin for a permanent mechanical mitral valve and atrial fibrillation Patient Problems: Active and Suspected Problems (Last Reviewed 02/04/18 @ 15:15 by Adrianne Hoover) Chest pain (Acute) - Physical Exam General: Alert, Oriented x3, Cooperative HEENT: Atraumatic, PERRLA, EOMI, Normocephalic Neck: Supple, No JVD, Negative Carotid Bruits Lungs: Clear to auscultation, Normal air movement, - - Pacemaker- like object in the right upper chest. Cardiovascular: Regular rate, - - Mechanical click sound Abdomen: Bowel Sounds Present, Soft, Non Tender Extremities: No edema, Capillary Refill Less than 3 Seconds Skin: No rashes, No breakdown Musculoskeletal: No Tenderness to Palpation of Joints or Extremities Neurological: Cranial nerves II-XII grossly intact Psych/Mental Status: Normal Affect, Appropriate Vital Signs Temp Pulse Resp BP Pulse Ox 98.1 F 91 22 H 136/69 H 99 04/02/18 00:11 04/02/18 00:11 04/02/18 00:11 04/02/18 00:11 04/02/18 00:43 Assessment/Plan All Active Problems (Last Reviewed 02/04/18 @ 15:15 by Adrianne Hoover) Chest pain (Acute) Atrial dysrhythmia (Acute) Ventricular tachycardia (Acute) The patient is a 77 year old F with a significant history of former tobacco use; hypertension, atrial fibrillation/atrial flutter status post ablation; permanent pacemaker with defibrillation; mechanical mitral valve; chronic anticoagulation with Coumadin; systolic heart failure with last ejection fraction 20%; left breast cancer x2 status post mastectomy,muscle removal and reconstruction, and radiation; who presents with progressively worsening chest pain while at rest. Chest pain Troponin at emergency department was negative. EKG showed paced rhythm. Patient received aspirin 324mg and morphine 8 mg at emergency department Aspirin 81mg daily. Home pravastatin continued Nitroglycerin sublingual and morphine IV as needed Serial cardiac enzymes ordered. Because of her many risk factors of cardiac disease will consult cardiology for further stratification and management. Coreg continued Systolic heart failure Coreg and spironolactone continue Lasix continued. Home potassium held since her potassium was 5.1 on admission. Repeat potassium ordered for noon. Osteoarthritis Tramadol continued Atrial fibrillation Coreg and Coumadin Daily PT/INR Mechanical Mitral valve Coumadin continued Hypertension Spironolactone and Coreg continued as above Hypothyroidism [place] thyroid continued Code Visit Inpatient E AND M: [id number] Init Hosp L3 04/02/18 0744 <Electronically signed by Williams Yousif MD> Date [facility] Signature: Date (if applicable) CC: Williams Yousif MD; Romie Landeros MD Signed TROPONIN-I Collected: 04/02/2018 Status: F Source: [place] 6:55 AM [facility] REPOSITORY Order Comment: 'TROP' Serial specimen #1, #2 or #3: 3 TYPE CODE TESTS RESULT OUT OF RANGE REFERENCE UNITS LAB L501.4010 <0.045 ng/mL Normal 0.028 TROPONIN-I Result Comment: TROPONIN-I EXPECTED VALUES <0.045 Negative 0.045 - 0.590 Consistent with Cardiac Damage > OR = 0.600 Critical Value Not every elevated troponin is indicative of FL. These values should be used with clinical judgement in examining the patient's clinical picture for diagnosis. To establish a diagnosis of FL versus myocardial injury, there must be a demonstrated rise and/or fall in the troponin values, in addition to ischemic symptoms, EKG changes, new regional wall motion abnormality, and/or angiographical evidence. PLEASE NOTE: REFERENCE RANGES EDITED 17 Performed By: #### L501.4010 #### [facility] [address] [place], [address] EMERGENCY DEPARTMENT Observed: 04/02/2018 Status: F Source: [place] SUMMARY 4:42 AM [facility] REPOSITORY [facility] Medical Records Department [address] [place] [address] Emergency Department Summary 04/02/18 0042 MR#: [id number] Acct: [id number] Name: JAMES BURK Rep #: [id number] : 1940 77 From: Rd Caceres MD PCP: Romie Landeros MD, Chi Status: ADM NICK - ER Visit Summary Date of Service: 04/02/18 Chief Complaint: [] Chest pain and back pain History of Present Illness: The patient is a 77 F complaining of chest pain and back pain that started approximately 2 and half hours ago at rest. Is a sharp pain moderate severity. No home treatment. Last stress test a year ago. She feels it in the center of her chest and through her body and between her shoulder blades. She has never had aortic dissection. She has a history of atrial fib and has an ICD pacemaker. Her mitral valve has been replaced. She does have chronic CHF. She has never had a heart attack. Last stress test was a year ago. Physical Examination: [] Vital signs reviewed General: Well-nourished well-developed Head: Normocephalic atraumatic Eyes: Pupils equal round and reactive to light extraocular movements intact ENT: TMs clear no hemotympanum no trauma Neck: Nontender full range of motion Cardiovascular: Regular rate rhythm no murmurs normal S1-S2 Respiratory: No distress clear to auscultation bilaterally chest nontender Abdomen: Soft nontender nondistended normal bowel sounds no masses Back: Nontender no CVA tenderness Extremities: Nontender active range of motion 4 extremities no trauma Skin: Normal color no trauma Neuro alert oriented cranial nerves II through XII intact normal strength sensation reflexes Test Results: [] Emergency Department Course and Treatment: [] EKG shows circular paced rhythm at a rate of 85. Lab work and chest x-ray obtained. Patient given oral aspirin and morphine for her symptoms. This did help her pain significantly. She needed a second dose of morphine however. CBC shows a white count of 14.5. Chemistries normal except sodium 132, BUN 37, glucose 208. INR 3.1 therapeutic. Troponin -0.02. Chest x-ray shows nothing acute. At this time patient has chest pain. I feel she should be admitted for further evaluation and treatment of the above. I have a low suspicion for dissection. The patient stated she cannot get IV dye. I do not feel she needs an urgent transesophageal echo. This will be discussed with the hospitalist and she will be admitted. Treatment Plan: [] Disposition: [] Impression: [] Chest pain with radiation to the back This note was generated with [employer] dictation software. It may contain incorrect words, spelling, and punctuation that were not noted in review of the chart prior to signing ED Disposition - Plan for ED Patient: Chief Complaint: Chest Pain Referrals: Romie Landeros Chi, MD [Primary Care Provider] - What to do if you have Problems For any increased pain, shortness of breath, bleeding, nausea or vomiting, chest pain, or any unexpected problems, contact your Primary Care Provider. Call [facility] ([phone]) or report to the closest Emergency Room. Call 911 if necessary. 04/02/18 0442 <Electronically signed by Rd Caceres MD> Date Rd Caceres MD Cosigner Signature (If Indicated): Date CC: Romie Landeros MD TROPONIN-I Collected: 04/02/2018 Status: F Source: [place] 4:34 AM [facility] REPOSITORY Order Comment: 'TROP' Serial specimen #1, #2 or #3: 2 TYPE CODE TESTS RESULT OUT OF RANGE REFERENCE UNITS LAB L501.4010 <0.045 ng/mL Normal 0.031 TROPONIN-I Result Comment: TROPONIN-I EXPECTED VALUES <0.045 Negative 0.045 - 0.590 Consistent with Cardiac Damage > OR = 0.600 Critical Value Not every elevated troponin is indicative of FL. These values should be used with clinical judgement in examining the patient's clinical picture for diagnosis. To establish a diagnosis of FL versus myocardial injury, there must be a demonstrated rise and/or fall in the troponin values, in addition to ischemic symptoms, EKG changes, new regional wall motion abnormality, and/or angiographical evidence. PLEASE NOTE: REFERENCE RANGES EDITED 17 Performed By: #### L501.4010 #### [facility] [address] [place], [address] BASIC METABOLIC Collected: 04/02/2018 Status: F Source: [place] PROFILE (BMP) 1:10 AM [facility] REPOSITORY Order Comment: REDRAW. PREVIOUS SPECIMEN REJECTED DUE TO Hemolyzed >4+. 04/02/18 0049 Jamilah Barkley. 'TROP' Serial specimen #1, #2, #3, or #4: 1 TYPE CODE TESTS RESULT OUT OF RANGE REFERENCE UNITS LAB L501.0100 74-106 mg/dL High GLU 208 Result Comment: Glucose result greater than or equal to 200 mg/dL suggests DIABETES MELLITUS per A.D.A. criteria. Please note revised GLUCOSE reference range effective 2017. LAB L501.1000 7-18 mg/dL High BUN 37 LAB L501.1100 0.55-1.02 mg/dL Normal CREAT,SERUM 1.01 Result Comment: The validity of the calculated GFR AND GFRAA in patients over 70 years has not been determined. Clinical correlation is essential. LAB L501.1110 >60 mL/min Low EST GFR 56 Result Comment: Non- GFR Calc LAB L501.1115 >60 mL/min Normal EST GFR - AA 68 Result Comment: GFR Calc LAB L501.1255 ml/min Normal Estimated CRCL 36.89 LAB L501.1300 10-20 RATIO High BUN/CRE 36.6 LAB L501.2200 8.5-10 mg/dL Normal .1 CA 9.1 LAB L501.5300 136-14 mmol/L Low 5 NA 132 LAB L501.5600 3.5-5. mmol/L Normal 1 K 5.1 LAB L501.5900 98-107 mmol/L Normal CL 98 LAB L501.6100 21.0-3 mmol/L Normal 2.0 CO2 30.0 LAB L501.6200 5-15 Low GAP 4 Performed By: #### L500.2500, L501.4010 #### [facility] [address] [place], [address] TROPONIN-I Collected: 04/02/2018 Status: F Source: [place] 1:10 AM [facility] REPOSITORY Order Comment: REDRAW. PREVIOUS SPECIMEN REJECTED DUE TO Hemolyzed >4+. 04/02/18 Liza Barkley. 'TROP' Serial specimen #1, #2, #3, or #4: 1 TYPE CODE TESTS RESULT OUT OF RANGE REFERENCE UNITS LAB L501.4010 <0.045 ng/mL Normal 0.021 TROPONIN-I Result Comment: TROPONIN-I EXPECTED VALUES <0.045 Negative 0.045 - 0.590 Consistent with Cardiac Damage > OR = 0.600 Critical Value Not every elevated troponin is indicative of FL. These values should be used with clinical judgement in examining the patient's clinical picture for diagnosis. To establish a diagnosis of FL versus myocardial injury, there must be a demonstrated rise and/or fall in the troponin values, in addition to ischemic symptoms, EKG changes, new regional wall motion abnormality, and/or angiographical evidence. PLEASE NOTE: REFERENCE RANGES EDITED 17 Performed By: #### L500.2500, L501.4010 #### [facility] [address] [facility] [address] [facility] [place], [address] PROTHROMBIN TIME W/INR Collected: 04/02/2018 Status: F Source: [place] 1:10 AM [facility] REPOSITORY Order Comment: REDRAW. PREVIOUS SPECIMEN REJECTED DUE TO Hemolyzed >4+. 04/02/18 0049 Jamilah Barkley. TYPE CODE TESTS RESULT OUT OF RANGE REFERENCE UNITS LAB L300.4150 11.7-14.9 SECONDS High PROTIME 32.3 LAB L300.4200 Normal INR 3.1 Performed By: #### L300.3900 #### [facility] [address] [place], [address] CHEST PA AND LATERAL Observed: 04/02/2018 Status: F Source: [place] 12:42 AM [facility] REPOSITORY [facility] Imaging Services [address] [place] [address] Chest PA and Lateral MR#: [id number] Acct: [id number] Name: JAMES BURK Rep #: [id number] : 1940 F 77 From: Flaca Jimenez MD PCP: Tigre WEAV[facility] Status: REG ER Study: Chest PA and Lateral Date of Exam: 04/02/18 Exam# [id number] Ordering Dr: Rd Caceres MD STUDY: X-RAY CHEST REASON FOR EXAM: Female, 77 years old. Chest pain. TECHNIQUE: PA and lateral views of the chest. COMPARISON: August 01, 2017. FINDINGS: Patient has had a sternotomy. Cardiac monitoring leads are present. Right-sided intracardiac pacemaker is present. There is hyperinflation of the lungs consistent with chronic obstructive lung disease (COPD). There is vague increased attenuation within the mid left lung that may represent airspace disease and/or atelectasis. Some of this appearance may be related to overlying soft tissues as well. There are bilateral apical pleural calcifications. No pleural effusions are visualized. There is mild cardiac enlargement. There are calcified mediastinal and hilar lymph nodes. Normal visualized pulmonary arteries. There is atherosclerotic calcification of the aortic arch with tortuosity. There is demineralization of the osseous structures. Normal visualized ribs, clavicles, and shoulders. There is no demonstrated abnormality of the visualized soft tissue structures of the upper abdomen. RAD/Chest PA and Lateral IMPRESSION: 1. Questionable left-sided airspace disease and/or atelectasis. Some of this appearance may be related to overlying soft tissues. 2. COPD. Electronically Signed: Flaca Jimenez MD at 1:50 EDT , Service support , CC: Rd Caceres MD; Romie Landeros MD Data Collector: Signed CBC W/DIFF, AUTOMATED Collected: 04/02/2018 Status: F Source: [place] 12:23 AM [facility] [place] REPOSITORY TYPE CODE TESTS RESULT OUT OF RANGE REFERENCE UNITS LAB L100.1000 4.4-11.0 K/mm3 High WBC 13.5 LAB L100.1200 4.2-5.4 M/mm3 Normal RBC 4.83 LAB L100.1300 12.0-15.0 g/dl Normal HGB 14.4 LAB L100.1400 37-47 % Normal HCT 42.6 LAB L100.1500 81-99 fL Normal MCV 88.2 LAB L100.1600 27.0-32.0 pg Normal MCH 29.8 LAB L100.1700 32-36 g/gl Normal MCHC 33.8 LAB L100.1810 11.6-14.6 % High RDW CV 14.9 LAB L100.1820 35.1-43.9 fl High RDW SD 47.7 LAB L100.1900 150-450 K/mm3 Normal PLT 199 LAB L100.2000 6.2-12.0 fl Normal MPV 11.2 LAB L100.2100 47-70 % High NEUT% 80.2 LAB L100.2200 19-41 % Low LY% 14.1 LAB L100.2300 0-10 % Normal MONO% 4.3 LAB L100.2400 0-5 % Normal EO% 1.0 LAB L100.2500 0-1 % Normal BASO% 0.0 LAB L100.2550 0.0-0.9 % Normal IM GRAN % 0.400 Result Comment: IG% - Immature Granulocytes (promyelocytes, myelocytes and metamyelocytes) > 1% indicates that a LEFT SHIFT is Present. LAB L100.2620 2.0-7.7 X10 3/uL High Absolute Neut 10.8 LAB L100.2720 0.83-4.51 X10 3/ul Normal Absolute Lymph 1.91 Performed By: #### L100.0100 #### [facility] [address] [facility] [place], [place], [address] HEMOGLOBIN A1C Collected: 04/02/2018 Status: F Source: [place] 12:23 AM [facility] [place] REPOSITORY TYPE CODE TESTS RESULT OUT OF RANGE REFERENCE UNITS LAB L501.9985 4.2-6.3 % High HGB A1C 6.4 Performed By: #### L501.9985 #### [facility] [address] [place], [place], [address] PROTHROMBIN TIME W/INR Collected: 03/20/2018 Status: F Source: [place] 2:04 PM [facility] [place] REPOSITORY Order Comment: PLEASE SEND RESULTS OF PT/INR TO TYPE CODE TESTS RESULT OUT OF RANGE REFERENCE UNITS LAB L300.4150 11.7-14.9 SECONDS High PROTIME 34.4 LAB L300.4200 Normal INR 3.4 Performed By: #### L300.3900 #### [facility] [address] [place], [place], [address] THYROID STIM HORMONE Collected: 03/20/2018 Status: F Source: [place] ([facility]) 2:04 PM [facility] [place] REPOSITORY TYPE CODE TESTS RESULT OUT OF RANGE REFERENCE UNITS LAB L501.9520 0.358-3.74 uIU/mL High TSH 6.83 Performed By: #### L501.9520 #### [facility] [address] [place], [address] PROTHROMBIN TIME W/INR Collected: 02/20/2018 Status: F Source: [place] 2:57 PM [facility] [place] REPOSITORY Order Comment: Result obtained is for confirmation testing of Fingerstick PT/INR Specimen # [id number] . 02/20/18 1524 HAILEYDENI THIS CONFIRMATION SPECIMEN RESULT IS FROM VENOUS BLOOD. TYPE CODE TESTS RESULT OUT OF REFERENCE UNITS RANGE LAB L300.4150 11.7-14.9 SECONDS High PROTIME 36.5 LAB L300.4200 High alert INR 3.6 Result Comment: CRITICAL VALUE VERIFIED. CALLED TO RALPH AT [facility] 02/20/18 1615 Davina Delong. RESULTS READ BACK BY SAME . Performed By: #### L300.3900 #### [facility] [address] [place], [address] PROTIME W/INR Collected: 02/20/2018 Status: F Source: [place] 2:52 PM [facility] [place] REPOSITORY TYPE CODE TESTS RESULT OUT OF REFERENCE UNITS RANGE LAB L9200.1001 11.9-14.4 SEC High PROTIME ISTAT 52.0 Result Comment: Reference Range 11.9 - 14.4 LAB L9200.2000 High alert INR ISTAT 4.70 Result Comment: Critical Value > 3.5 Performed By: #### L9200.0000 #### [facility] Point of Care [address] [place], [place] [address] PACEMAKER CHECK Observed: 02/16/2018 Status: F Source: [place] 2:41 PM [facility] [place] REPOSITORY [facility] [address] [place] [address] Pacemaker Check Date of Service: 02/02/18 1733 MR#: [id number] Acct: [id number] Name: JAMES BURK Rep #: [id number] : 1940 From: Shantal Peres Age/Sex: 77/F Location[place] [facility] Status: Signed Comments Summary Comments: Remote Dual Chamber ICD Evaluation: See attached scanned Latitude report. Remote interrogation shows 12 NSVT episodes and 75 MS episodes, <0.1% total time since 03/31/15. Stored e-gram on 01/27/18 shows atrial flutter with appropriate MS. Last NSVT episode occurred on 07/03/17. Presenting rhythm shows AAI pacing @ 67 ppm. 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 Estimated battery life 8 yrs. Lead impedances and atrial sensing remain stable. Normal remote PPM function. Pt notified remote transmission received and next f/u appt scheduled for in 3 mos. Device Device Date Interviewed: 03/04/18 Follow-up Location: remote Interview Reason: scheduled follow up Senior Teradata Developer: [employer] Name: Energen ICD IS-1/DF-1 Model: E143 Serial #: [id number] Implant Date: 03/31/15 Year(s): 2 Implant Physician: Dr. Bubba Valenzuela Patient Characteristics Ventricular Indication: Nonsustained VT Patient Substrate: Ischemic cardiomyopathy Ejection fraction %: 20 to 24 (05/2017) By: Echo Underlying rhythm: Sinus rhythm Pacemaker Dependent: No Device Characteristics Device: Dual Chamber Type: Implantable defibrillator Remote Follow-Up: Latitude Leads Lead #1 Senior Teradata Developer Lead 1: Guidant Model Lead 1: [id number] Serial# Lead 1: [id number] Date Implanted Lead 1: 08/22/04 Position Lead 1: RA Lead #2 Senior Teradata Developer Lead 2: Guidant Model Lead 2: [id number] Serial# Lead 2: [id number] Date Implanted Lead 2: 08/22/04 Position Lead 2: RV Diagnostics Pacing % RA Pacin % RV Pacin Mode Switching Total # Episodes: 75 % Mode switched: 0.1 Arrhythmias VF Episodes: 0 Fast VT Episodes: 0 Slow VT Episodes: 0 Non-Sust Episodes: 12 Tachy Settings VF Therapies VF Therapy Status On On On On On On Energy 29 41 41 41 41 41 Pathway ATP: During charging on FVT Therapies FVT Therapy Status On On On On On On VT Therapies FVT Therapy Status On/Off On/Off On/Off On/Off On/Off On/Off Comments: Dawood Settings Dawood Settings Pacemaker Mode DDDR Output/Sensing V/PW (ms) 2.0/0.4 2.0/0.4 Sensitivity RA RV LV AGC 0.25 0.6 Comments: Billing Codes ICD Device Billing: ICD Dev Interrogate (Rmt) Assessment AND Plan Problems 1. Presence of implantable cardioverter-defibrillator (ICD) Z95.810 2. Dilated cardiomyopathy I42.0 3. Atrial flutter I48.92 4. Atrial fibrillation I48.91 5. Ventricular tachycardia I47.2 6. Chronic systolic congestive heart failure I50.22 02/16/18 1224 <Electronically signed by Shantal Peres > Date Shantal Peres 02/16/18 1441<Electronically signed by John Hayden MD> Cosigner Signature: Date (if applicable) John Hayden MD CC: CBC W/DIFF, AUTOMATED Collected: 02/13/2018 Status: F Source: [place] 10:18 AM [facility] [place] REPOSITORY Order Comment: SEND RESULTS TO @[id number] TYPE CODE TESTS RESULT OUT OF RANGE REFERENCE UNITS LAB L100.1000 4.4-11.0 K/mm3 Normal WBC 6.3 LAB L100.1200 4.2-5.4 M/mm3 Normal RBC 4.31 LAB L100.1300 12.0-15.0 g/dl Normal HGB 12.8 LAB L100.1400 37-47 % Normal HCT 39.9 LAB L100.1500 81-99 fL Normal MCV 92.6 LAB L100.1600 27.0-32.0 pg Normal MCH 29.7 LAB L100.1700 32-36 g/gl Normal MCHC 32.1 LAB L100.1810 11.6-14.6 % Normal RDW CV 13.7 LAB L100.1820 35.1-43.9 fl High RDW SD 45.4 LAB L100.1900 150-450 K/mm3 Low PLT 120 LAB L100.2000 6.2-12.0 fl Normal MPV 11.2 LAB L100.2100 47-70 % High NEUT% 78.4 LAB L100.2200 19-41 % Low LY% 8.6 LAB L100.2300 0-10 % High MONO% 11.5 LAB L100.2400 0-5 % Normal EO% 1.0 LAB L100.2500 0-1 % Normal BASO% 0.3 LAB L100.2550 0.0-0.9 % Normal IM GRAN % 0.200 Result Comment: IG% - Immature Granulocytes (promyelocytes, myelocytes and metamyelocytes) > 1% indicates that a LEFT SHIFT is Present. LAB L100.2620 2.0-7.7 X10 3/uL Normal Absolute Neut 4.9 LAB L100.2720 0.83-4.51 X10 3/ul Low Absolute Lymph 0.54 LAB L100.4500 SMEAR Normal COMMENT Result Comment: LYMPHOPENIA NOTED Performed By: #### L100.0100 #### [facility] [address] [place], [address] COMPREHENSIVE METABOLIC Collected: 02/13/2018 Status: F Source: [facility] 10:18 AM [facility] [place] REPOSITORY Order Comment: SEND RESULTS TO @[id number] TYPE CODE TESTS RESULT OUT OF RANGE REFERENCE UNITS LAB L501.0100 74-106 mg/dL Normal GLU 95 Result Comment: Please note revised GLUCOSE reference range effective 2017. LAB L501.1000 7-18 mg/dL High BUN 24 LAB L501.1100 0.55-1.02 mg/dL Normal CREAT,SERUM 1.00 Result Comment: The validity of the calculated GFR AND GFRAA in patients over 70 years has not been determined. Clinical correlation is essential. LAB L501.1110 >60 mL/min Low EST GFR 57 Result Comment: Non- GFR Calc LAB L501.1115 >60 mL/min Normal EST GFR - AA 69 Result Comment: GFR Calc LAB L501.1300 10-20 RATIO High BUN/CRE 24.1 LAB L501.1500 6.4-8.2 g/dL T Normal PROT 6.8 LAB L501.1800 3.2-5.0 g/dL Normal ALB 3.7 LAB L501.1950 2.2-4.2 g/dL Normal GLOB 3.1 LAB L501.2000 0.9-2.4 RATIO Normal A/G 1.2 LAB L501.2200 8.5-10.1 mg/dL CA Normal 9.5 LAB L501.4100 15-37 U/L Normal AST 28 LAB L501.4305 45-117 U/L High ALK P 119 LAB L501.4405 13-56 U/L Normal ALT 33 LAB L501.4600 0.20-1.00 mg/dL T Normal BILI 1.00 LAB L501.5300 136-145 mmol/L NA Normal 136 LAB L501.5600 3.5-5.1 mmol/L K Normal 4.4 LAB L501.5900 98-107 mmol/L CL Normal 98 LAB L501.6100 21.0-32.0 mmol/L Normal CO2 31.0 LAB L501.6200 5-15 Normal GAP 7 Performed By: #### L500.4050 #### [facility] [place], [address] PROTHROMBIN TIME W/INR Collected: 02/13/2018 Status: F Source: [place] 10:18 AM [facility] [place] REPOSITORY TYPE CODE TESTS RESULT OUT OF RANGE REFERENCE UNITS LAB L300.4150 11.7-14.9 SECONDS High PROTIME 32.0 LAB L300.4200 Normal INR 3.1 Performed By: #### L300.3900 #### [facility] [address] [place], [address] PROTIME W/INR Collected: 02/09/2018 Status: F Source: [place] 1:21 PM [facility] [place] REPOSITORY TYPE CODE TESTS RESULT OUT OF REFERENCE UNITS RANGE LAB L9200.1001 11.9-14.4 SEC High PROTIME ISTAT 25.0 Result Comment: Reference Range 11.9 - 14.4 LAB L9200.2000 Normal INR ISTAT 2.20 Result Comment: Critical Value > 3.5 Performed By: #### L9200.0000 #### [facility] Point of Care [address] [facility] [place] [address] CARDIOLOGY VISIT Observed: 02/04/2018 Status: F Source: [place] 5:13 PM [facility] [place] REPOSITORY [facility] [address] [place] [address] OFFICE VISIT Date of Service: 02/04/18 MR#: [id number] Acct: [id number] Name: JAMES BURK Rep #: [id number] : 1940 Provider: John Hayden MD Age/Sex: 77/F Location: [facility] Status: Signed HPI HPI Details: JAMES BURK, is a 77 F who presents to the office today for outpatient cardiovascular follow-up. Overall from a cardiac standpoint she denies any symptoms suspicious for angina pectoris or overt CHF or pulmonary edema. There has been no issues with respect to near syncope or syncope. She has not had ICD discharge. She was evaluated in July 2017 at [facility]. They recommended adjustment of medication with the addition of Aldactone/Spironolactone if tolerated. She was placed on this medication. Thus far she appears to be doing reasonably well. She was asked to have an outpatient follow-up with them with repeat echocardiographic studies to further assess her cardiovascular status. She has yet to do that. Intake Vital Signs02/04/18 Height 5 ft 2 in 02/04/18 Weight: 114 lb 02/04/18 Body Mass Index (BMI) 20.8 02/04/18 Blood Pressure 104/60 Intake Visit Reasons: 6 M FU Allergies HERMILO Inhibitors Allergy (Verified 02/04/18 15:11) Unknown amiodarone Allergy (Verified 02/04/18 15:11) Unknown Iodinated Contrast- Oral and IV Dye [CONTRASTS] Adverse Reaction (Verified 02/04/18 15:11) I JUMP AROUND ON THE TABLE iodine Adverse Reaction (Verified 02/04/18 15:11) I JUMP AND FLOP AROUND ON THE TABLE Medications Carvedilol [Coreg] 25 mg PO BID 03/28/15 [History Confirmed 02/04/18] Furosemide [Lasix] 40 mg PO DAILY 03/28/15 [History Confirmed 02/04/18] Lorazepam [Ativan] 0.5 mg PO DAILY PRN PRN 03/28/15 [History Confirmed 02/04/18] traMADol [Ultram (G)] 50 mg PO BID PRN 03/28/15 [History Confirmed 02/04/18] Aspirin [Aspirin, Baby] 81 mg PO DAILY@0800 08/01/17 [History Confirmed 02/04/18] Multivitamin [Daily Multiple Vitamin] 1 ea PO DAILY 08/01/17 [History Confirmed 02/04/18] Spironolactone 25 mg PO DAILY 08/01/17 [History Confirmed 02/04/18] calcium phosphate-vitamin D3 250 mg calcium-500 unit chewable tablet 1 tab PO BID ea 08/04/17 [History Confirmed 02/04/18] thyroid (pork) 15 mg tablet 15 mg PO QDAY 08/04/17 [History Confirmed 02/04/18] pravastatin 20 mg tablet 20 mg PO QHS #90 tab 08/25/17 [Rx Confirmed 02/04/18] warfarin 5 mg tablet 5 mg PO .COMPLEX 10/31/17 [History Confirmed 02/04/18] folic acid 1 mg tablet 1 mg PO QDAY tab 02/04/18 [History Confirmed 02/04/18] potassium chloride ER 10 mEq tablet,extended release 10 meq PO BID tab 02/04/18 [History Confirmed 02/04/18] [facility] Medical History Atrial dysrhythmia (Acute) Ventricular tachycardia (Acute) Chronic systolic congestive heart failure (Chronic) Atrial fibrillation (Chronic) Atrial flutter (Chronic) Dilated cardiomyopathy (Chronic) History of mitral valve replacement (Chronic 06/1997) 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 tachycardia (Chronic) 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 of 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) Anxiety states (Chronic) Cardiac pacemaker (Chronic) Type II diabetes mellitus, uncontrolled (Chronic) History of esophageal reflux (Chronic) History of mitral valve disorder (Chronic) HLD (hyperlipidemia) (Chronic) HTN (hypertension) (Chronic) Fibromyalgia (Chronic) History of breast cancer (Chronic) Surgical History Presence of implantable cardioverter-defibrillator (ICD) (Chronic) History of breast implant (Resolved) History of knee surgery (Resolved) History of mastectomy (Resolved) History of tonsillectomy and adenoidectomy (Resolved) Family History Father Cancer pancreatic Hypertension Mother Hypertension Social History Smoking Status: Never smoker alcohol intake: never ROS Const Const: Positive for fatigue (increased tiredness); negative for weakness, weight gain, weight loss, frequent falls or excessive sweating Eyes Eyes: Negative for change in vision, blurry vision or transient loss of vision ENT ENT: Negative for dizziness or balance problems Cardio Chest Pain: No Palpitations: Yes (occasional) feels like its: skipping Edema: None Muscle aches with walking: None Resp Respiratory: Positive for SOB with activity (slight increase in SOB when going upstairs); negative for SOB at rest GI GI: Negative vomiting or vomiting blood/hematemesis : Negative for hematuria Musc Musc: Positive for muscle aches/ myalgia (bilateral knee pain) and joint pain (HX Arthritis); negative for balance problems or muscle weakness Skin Skin: Negative non-healing lesions or rash Neuro Neuro: Negative for weakness, blurry vision, dizziness, lightheadedness, frequent falls or orthostatic symptoms Donato Hematologic/Lymphatic: Negative for easy bleeding Endo Endo: Positive for fatigue (increased tiredness); negative for excessive sweating Psych Psych: Negative for anxiety or depression Allergy Allergy/Immunology: Negative for hives, Negative for rash Cardiology Exam Const Appearance: cooperative, healthy appearing, comfortable, no acute distress, well developed and well groomed Nutritional Appearance: thin Orientation: alert, awake and oriented x3 Head Head: normal to inspection, normocephalic and atraumatic Ears: hearing grossly normal bilaterally Nose: external nose normal Face and Sinus: face symmetric Mouth: oral mucosae normal Eyes Eyelids: eyelids normal Conjunctivae: conjunctivae normal Pupils: PERRL EOM: EOM intact bilaterally Neck Neck: normal visual inspection and full ROM Carotids: normal carotid upstroke Chest Chest inspection: normal inspection of the chest and symmetric chest movement Auscultation: Bilateral: Clear to Auscultation Cardio Palpation: normal PMI Rate: regular rate Rhythm: regular rhythm Heart sounds: S2 normal and crisp prosthetic S1 GI GI: normal to inspection, bowel sounds present and soft Neuro General: alert, awake, oriented x3 and moves all extremities Skin Skin: no rashes or lesions noted Extremities Pulses: Normal: Right Radial Pulse, Left Radial Pulse Lower Extremity Edema: None: Bilateral Psych Psychological: normal affect Supplemental Info She did have a transthoracic echocardiogram performed [facility] on 06/17/2017. The results are as noted below. Interpretation Summary The study was technically difficult. Mildly dilated left ventricle. Severe global left ventricular systolic dysfunction. The estimated ejection fraction is 20 %. Mild global right ventricular systolic dysfunction. The left atrium is moderately enlarged. Stable appearing mechanical mitral valve apparatus. Moderate (2+) tricuspid valve insufficiency. Mild diffuse aortic valve thickening. Trivial aortic valve insufficiency. Right ventricular systolic pressure estimated to be 33 mmHg. ICD or pacer leads identified within the right atrium ICD or pacer leads identified within the right ventricle. He also had a pharmacologic stress nuclear imaging study performed at [facility] on 05/01/2017. The results are as noted below. Impression: 1. Rest and stress SPECT cardio light nuclear imaging demonstrate myocardial perfusion changes which may be compatible with the effects soft tissue attenuation/artifact and/or detraction secondary to the extra cardiac/gastrointestinal tracer uptake, with the effects of an underlying electronic ventricular paced rhythm, however, an area of previous myocardial injury/infarction cannot necessarily be excluded. There are no myocardial perfusion changes consider diagnostic for associated stress-induced myocardial ischemia. 2. The reported LVEF is 25%. Her last diagnostic cardiac catheterization performed at [facility] on 08/21/2004 demonstrated the following: F[NA.L IMPRESSIONS: I. Elevation of left ventricular end-diastolic pressure compatibl.e with decreased left ventricular systolic function.. 2. Left ventricle-mild global left ventricular systolic dysfunction with estimated left ventricular ejection fraction of 35 to 40 percent. 3. Left main-angiographically normal 4. Left anterior descending-status post first diagonal branch there is 10 percent tubular type stenosis. a. First diagonal branch-ostial 10 percent tubular type stenosis, 5. LCX-tortuous yet angiographicafly normal. 6. Right coronary artery-diffuse 0-10 percent minimal lumin.al irregularities. 7. Mitral valve-stable appearing [place]iss mitral valve apparatus without obvious leaflet restriction and with notation of trace mitral regurgitation following premature ventricular contractions following left ventriculogram. She had an electrophysiology study performed at [facility] on 08/22/2004. At that time she had what was reported as normal sinus node and AV node conduction intervals and inducible ventricular tachycardia with poor hemodynamic tolerance. She does have a [employer] Energen ICD IS-1/DF-1 model number E143 serial #[id number] implanted on 03/31/2015 dual-chamber implantable defibrillator. Her previous open heart surgery was performed at the [facility] on 06/21/1997. At that time she received a #27 mm [place] mechanical mitral valve. Assessment AND Plan 1. Dilated cardiomyopathy I42.0 Plan At the present time she appears to be without acute symptoms. She is going to continue her current cardiovascular medical therapy. She was encouraged to contact [facility] and keep her outpatient CHF evaluation for further recommendations. She states she will contact them and discuss future follow-up. 2. Chronic systolic CHF (congestive heart failure) I50.22 Plan She does not appear to have acute on chronic CHF at this time. She will continue her current medical therapy. 3. History of mitral valve replacement Z95.2 [place]iss #27mm 06/1997 Plan Her mitral valve has been followed. At the present time she appears to be without acute changes. She will continue with future outpatient follow-up. 4. Atrial dysrhythmia I49.8 Plan She does have a history of underlying atrial and ventricular dysrhythmias. She is on medical management. She does have an ICD in place. She appears to be doing well at this time. 5. Ventricular tachycardia I47.2 Plan She has had no obvious symptomatic ventricular dysrhythmias. Her ICD has not discharged since her last interrogation. She will continue to be followed. 6. Presence of implantable cardioverter-defibrillator (ICD) Z95.810 Plan Her ICD has been functioning appropriately. She has been assessed by [facility] electrophysiology. She will continue to be followed. 7. Hyperlipidemia, unspecified hyperlipidemia type E78.5 Plan Her lipid labs have been followed. They appear to be under good control. She will continue medical management as deemed appropriate. 8. Essential hypertension I10 Plan Her blood pressure appears to be reasonably well-controlled at the moment. Her ARB had to be discontinued secondary to her decreased blood pressure. She will continue follow-up. 9. [facility] current use of anticoagulant Z79.01 Plan She will continue with her medications. She will have laboratory studies performed as deemed appropriate. Plan Detail Additional Comments She will continue with future outpatient follow-up. Again she was encouraged to contact [facility] to continue to follow with the heart failure team there as well. Thank you for allowing me to participate in the care of your patient. Please don't hesitate to call if any issues arise. This note was generated using a voice recognition system and there may be incorrect words, spelling or punctuation that were not noted when reviewing the office note prior to saving. Follow Up 6 Months (PFM) Coding Level of Care Code Off vis,est,level 3 Diagnoses Dilated cardiomyopathy I42.0 Chronic systolic CHF (congestive heart failure) I50.22 History of mitral valve replacement Z95.2 Atrial dysrhythmia I49.8 Ventricular tachycardia I47.2 Presence of implantable cardioverter-defibrillator (ICD) Z95.810 Hyperlipidemia, unspecified hyperlipidemia type E78.5 Hyperlipidemia type: unspecified Essential hypertension I10 Hypertension type: essential hypertension [facility]CI current use of anticoagulant Z79.01 Coding Level of Care Code Off vis,est,level 3 Diagnoses Dilated cardiomyopathy I42.0 Chronic systolic CHF (congestive heart failure) I50.22 History of mitral valve replacement Z95.2 Atrial dysrhythmia I49.8 Ventricular tachycardia I47.2 Presence of implantable cardioverter-defibrillator (ICD) Z95.810 Hyperlipidemia, unspecified hyperlipidemia type E78.5 Hyperlipidemia type: unspecified Essential hypertension I10 Hypertension type: essential hypertension [facility]CI current use of anticoagulant Z79.01 02/04/18 1713 <Electronically signed by John Hayden MD> Date John Hayden MD Cosigner Signature: Date (if applicable) CC: Romie Landeros MD PROTIME W/INR Collected: 01/09/2018 Status: F Source: [place] [facility] 2:27 PM [facility] [place] REPOSITORY TYPE CODE TESTS RESULT OUT OF REFERENCE UNITS RANGE LAB L9200.1001 11.9-14.4 SEC High PROTIME ISTAT 34.8 Result Comment: Reference Range 11.9 - 14.4 LAB L9200.2000 Normal INR ISTAT 3.10 Result Comment: Critical Value > 3.5 Performed By: #### L9200.0000 #### [facility] Point of [place] [address] COMPREHENSIVE METABOLIC Collected: 12/12/2017 Status: F Source: [place]IS[place]LLA LUNDY 1:56 PM [facility] REPOSITORY TYPE CODE TESTS RESULT OUT OF RANGE REFERENCE UNITS LAB L501.0100 74-106 mg/dL High GLU 155 Result Comment: Fasting Glucose result greater than or equal to 126 mg/dL suggests DIABETES MELLITUS per A.D.A. criteria. Please note revised GLUCOSE reference range effective 2017. LAB L501.1000 7-18 mg/dL High BUN 25 LAB L501.1100 0.55-1.02 mg/dL High CREAT,SERUM 1.15 Result Comment: The validity of the calculated GFR AND GFRAA in patients over 70 years has not been determined. Clinical correlation is essential. LAB L501.1110 >60 mL/min Low EST GFR 49 Result Comment: Non- GFR Calc LAB L501.1115 >60 mL/min Low EST GFR - AA 59 Result Comment: GFR Calc LAB L501.1300 10-20 RATIO High BUN/CRE 21.7 LAB L501.1500 6.4-8.2 g/dL T Normal PROT 7.0 LAB L501.1800 3.2-5.0 g/dL Normal ALB 3.9 LAB L501.1950 2.2-4.2 g/dL Normal GLOB 3.1 LAB L501.2000 0.9-2.4 RATIO Normal A/G 1.3 LAB L501.2200 8.5-10.1 mg/dL CA Normal 8.9 LAB L501.4100 15-37 U/L High AST 38 LAB L501.4305 45-117 U/L High ALK P 126 LAB L501.4405 13-56 U/L Normal ALT 36 LAB L501.4600 0.20-1.00 mg/dL T Normal BILI 0.80 LAB L501.5300 136-145 mmol/L NA Normal 139 LAB L501.5600 3.5-5.1 mmol/L K Normal 4.4 LAB L501.5900 98-107 mmol/L CL Normal 102 LAB L501.6100 21.0-32.0 mmol/L Normal CO2 29.0 LAB L501.6200 5-15 Normal GAP 8 Performed By: #### L500.4050 #### [facility] [address] [place], [place], [id number] CBC W/DIFF, AUTOMATED Collected: 12/12/2017 Status: F Source: [place] 1:56 PM [facility] REPOSITORY TYPE CODE TESTS RESULT OUT OF RANGE REFERENCE UNITS LAB L100.1000 4.4-11.0 K/mm3 Normal WBC 6.8 LAB L100.1200 4.2-5.4 M/mm3 Low RBC 4.17 LAB L100.1300 12.0-15.0 g/dl Normal HGB 13.2 LAB L100.1400 37-47 % Normal HCT 41.1 LAB L100.1500 81-99 fL Normal MCV 98.6 LAB L100.1600 27.0-32.0 pg Normal MCH 31.7 LAB L100.1700 32-36 g/gl Normal MCHC 32.1 LAB L100.1810 11.6-14.6 % Normal RDW CV 12.5 LAB L100.1820 35.1-43.9 fl High RDW SD 44.0 LAB L100.1900 150-450 K/mm3 Normal PLT 189 LAB L100.2000 6.2-12.0 fl Normal MPV 11.3 LAB L100.2100 47-70 % High NEUT% 71.4 LAB L100.2200 19-41 % Low LY% 14.8 LAB L100.2300 0-10 % High MONO% 11.3 LAB L100.2400 0-5 % Normal EO% 2.1 LAB L100.2500 0-1 % Normal BASO% 0.3 LAB L100.2550 0.0-0.9 % Normal IM GRAN % 0.100 Result Comment: IG% - Immature Granulocytes (promyelocytes, myelocytes and metamyelocytes) > 1% indicates that a LEFT SHIFT is Present. LAB L100.2620 2.0-7.7 X10 3/uL Normal Absolute Neut 4.8 LAB L100.2720 0.83-4.51 X10 3/ul Normal Absolute Lymph 1.00 Performed By: #### L100.0100 #### [facility] [address] [place], [place], [address] PROTHROMBIN TIME W/INR Collected: 12/12/2017 Status: F Source: [place] 1:56 PM [facility] REPOSITORY TYPE CODE TESTS RESULT OUT OF RANGE REFERENCE UNITS LAB L300.4150 11.7-14.9 SECONDS High PROTIME 32.2 LAB L300.4200 Normal INR 3.1 Performed By: #### L300.3900 #### [facility] [address] [place], [address] PACEMAKER CHECK Observed: 11/26/2017 Status: F Source: [place] 11:16 AM [facility] REPOSITORY [facility] [address] [place] [address] Pacemaker Check Date of Service: 11/03/17 1147 MR#: [id number] Acct: [id number] Name: JAMES BURK Rep #: [id number] : 1940 From: Shantal Peres Age/Sex: 76/F Location: [facility] Status: Signed Comments Summary Comments: Remote Dual Chamber ICD Evaluation: Remote interrogation shows 74 MS episodes, <0.1% total time and 12 NSVT episodes since 03/31/15. Last ATR episode occurred on 08/01/17 and last NSVT episode occurred on 07/03/17. Pt on Coumadin. Presenting rhythm shows AAI pacing @ 67 ppm. Battery longevity approx 8.5 yrs. 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 Lead impedances and atrial sensing remain stable. Normal remote ICD function. Pt notified remote transmission received and next f/u appt scheduled for in 3 mos. Device Device Date Interviewed: 11/03/17 Follow-up Location: remote Interview Reason: scheduled follow up Senior Teradata Developer: [employer] Scientific Name: Energen ICD IS-1/DF-1 Model: E143 Serial #: [id number] Implant Date: 03/31/15 Year(s): 2 Implant Physician: Dr. Bubba Valenzuela Patient Characteristics Ventricular Indication: Nonsustained VT Patient Substrate: Ischemic cardiomyopathy Ejection fraction %: 20 to 24 (05/2017) By: Echo Underlying rhythm: Sinus rhythm Pacemaker Dependent: No Device Characteristics Device: Dual Chamber Type: Implantable defibrillator Remote Follow-Up: Latitude Leads Lead #1 Senior Teradata Developer Lead 1: Guidant Model Lead 1: [id number] Serial# Lead 1: [id number] Date Implanted Lead 1: 08/22/04 Position Lead 1: RA Lead #2 Senior Teradata Developer Lead 2: Guidant Model Lead 2: [id number] Serial# Lead 2: [id number] Date Implanted Lead 2: 08/22/04 Position Lead 2: RV Diagnostics Pacing % RA Pacin % RV Pacin Mode Switching Total # Episodes: 74 % Mode switched: 0.1 Arrhythmias VF Episodes: 0 Fast VT Episodes: 0 Slow VT Episodes: 0 Non-Sust Episodes: 12 Measurements Battery Charge Time (Sec): 10.4 Battery Status: DANIELE Predicted Remaining Longevity (months or years): 8.5 years RA Measurements Signal Amplitude (mV): 2.4 Impedance (Ohms): 410 RV Measurements Impedance (Ohms): 594 Shock Impedance (Ohms): 82 Tachy Settings VF Therapies VF Therapy Status On On On On On On Energy 29 41 41 41 41 41 Pathway ATP: During charging on FVT Therapies FVT Therapy Status On On On On On On VT Therapies FVT Therapy Status On/Off On/Off On/Off On/Off On/Off On/Off Comments: Dawood Settings Dawood Settings Pacemaker Mode DDDR Output/Sensing V/PW (ms) Sensitivity RA RV LV Comments: Billing Codes ICD Device Billing: ICD Dev Interrogate (Rmt) Assessment AND Plan Problems 1. Presence of implantable cardioverter-defibrillator (ICD) Z95.810 2. Dilated cardiomyopathy I42.0 3. Atrial flutter I48.92 4. Atrial fibrillation I48.91 5. 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 tachycardia I47.2 11/17/17 1827 <Electronically signed by Shantal Peres > Date Shantal Peres 11/26/17 1116<Electronically signed by John Hayden MD> Emigdioignkatie Signature: Date (if applicable) John Hayden MD CC: MACARIO Mccain/KUSH Collected: 11/21/2017 Status: F Source: [place] FINGERSTICK 1:29 PM [facility] REPOSITORY TYPE CODE TESTS RESULT OUT OF REFERENCE UNITS RANGE LAB L9200.1001 11.9-14.4 SEC High PROTIME ISTAT 34.3 Result Comment: Reference Range 11.9 - 14.4 LAB L9200.2000 Normal INR ISTAT 3.00 Result Comment: Critical Value > 3.5 Performed By: #### L9200.0000 #### [facility] Point [facility] Care [address] [place] [address] PROTIME W/INR Collected: 11/07/2017 Status: F Source: [place] FINGERSTICK 1:40 PM [facility] REPOSITORY TYPE CODE TESTS RESULT OUT OF REFERENCE UNITS RANGE LAB L9200.1001 11.9-14.4 SEC High PROTIME ISTAT 33.1 Result Comment: Reference Range 11.9 - 14.4 LAB L9200.2000 Normal INR ISTAT 2.90 Result Comment: Critical Value > 3.5 Performed By: #### L9200.0000 #### [facility] Point of Care [address] [place] [address] CBC W/DIFF, AUTOMATED Collected: 11/04/2017 Status: F Source: [place] 1:47 PM [facility] REPOSITORY TYPE CODE TESTS RESULT OUT OF RANGE REFERENCE UNITS LAB L100.1000 4.4-11.0 K/mm3 Normal WBC 5.8 LAB L100.1200 4.2-5.4 M/mm3 Low RBC 3.55 LAB L100.1300 12.0-15.0 g/dl Low HGB 11.5 LAB L100.1400 37-47 % Low HCT 36.1 LAB L100.1500 81-99 fL High MCV 101.7 LAB L100.1600 27.0-32.0 pg High MCH 32.4 LAB L100.1700 32-36 g/gl Low MCHC 31.9 LAB L100.1810 11.6-14.6 % Normal RDW CV 13.4 LAB L100.1820 35.1-43.9 fl High RDW SD 49.8 LAB L100.1900 150-450 K/mm3 Normal PLT 179 LAB L100.2000 6.2-12.0 fl Normal MPV 10.7 LAB L100.2100 47-70 % High NEUT% 71.5 LAB L100.2200 19-41 % Low LY% 15.4 LAB L100.2300 0-10 % High MONO% 10.9 LAB L100.2400 0-5 % Normal EO% 1.9 LAB L100.2500 0-1 % Normal BASO% 0.3 LAB L100.2550 0.0-0.9 % Normal IM GRAN % 0.000 Result Comment: IG% - Immature Granulocytes (promyelocytes, myelocytes and metamyelocytes) > 1% indicates that a LEFT SHIFT is Present. LAB L100.2620 2.0-7.7 X10 3/uL Normal Absolute Neut 4.1 LAB L100.2720 0.83-4.51 X10 3/ul Normal Absolute Lymph 0.89 Performed By: #### L100.0100 #### [facility] [address] [place], [place], [address] COMPREHENSIVE METABOLIC Collected: 11/04/2017 Status: F Source: [facility] 1:47 PM [facility] REPOSITORY TYPE CODE TESTS RESULT OUT OF RANGE REFERENCE UNITS LAB L501.0100 74-106 mg/dL High GLU 118 Result Comment: Fasting Glucose result from 100 to 125 mg/dL suggests IMPAIRED HOMEOSTASIS per A.D.A. criteria. Please note revised GLUCOSE reference range effective 2017. LAB L501.1000 7-18 mg/dL High BUN 30 LAB L501.1100 0.55-1.02 mg/dL High CREAT,SERUM 1.05 Result Comment: The validity of the calculated GFR AND GFRAA in patients over 70 years has not been determined. Clinical correlation is essential. LAB L501.1110 >60 mL/min Low EST GFR 54 Result Comment: Non- GFR Calc LAB L501.1115 >60 mL/min Normal EST GFR - AA 65 Result Comment: GFR Calc LAB L501.1300 10-20 RATIO High BUN/CRE 28.6 LAB L501.1500 6.4-8.2 g/dL T Normal PROT 6.5 LAB L501.1800 3.2-5.0 g/dL Normal ALB 3.7 LAB L501.1950 2.2-4.2 g/dL Normal GLOB 2.8 LAB L501.2000 0.9-2.4 RATIO Normal A/G 1.3 LAB L501.2200 8.5-10.1 mg/dL CA Normal 8.9 LAB L501.4100 15-37 U/L Normal AST 25 LAB L501.4305 45-117 U/L Normal ALK P 89 LAB L501.4405 13-56 U/L Normal ALT 26 Result Comment: Please note revised ALT reference range effective 2017. LAB L501.4600 0.20-1.00 mg/dL Normal T BILI 0.90 LAB L501.5300 136-145 mmol/L Low NA 134 LAB L501.5600 3.5-5.1 mmol/L Normal K 4.5 LAB L501.5900 98-107 mmol/L Normal CL 98 LAB L501.6100 21.0-32.0 mmol/L Normal CO2 31.0 LAB L501.6200 5-15 Normal GAP 5 Performed By: #### L500.4050, L501.9520 #### [facility] [address] [place], [place], [address] THYROID STIM HORMONE Collected: 11/04/2017 Status: F Source: [place] (TSH) 1:47 PM [facility] REPOSITORY TYPE CODE TESTS RESULT OUT OF RANGE REFERENCE UNITS LAB L501.9520 0.358-3.74 uIU/mL High TSH 4.98 Performed By: #### L500.4050, L501.9520 #### [facility] [address] [place], [place], [address] VITAMIN D,25 HYDROXY Collected: 11/04/2017 Status: F Source: [place] 1:47 PM [facility] REPOSITORY TYPE CODE TESTS RESULT OUT OF RANGE REFERENCE UNITS LAB L506.1000 29.95-100.01 ng/mL Normal Vitamin D 58.2 25-OH Result Comment: Vitamin D 25(OH) Status Range Deficiency <20 ng/mL (50nmol/L) Insuffciency 20 - 30 ng/mL (50 - 75 nmol/L) Sufficiency 30 - 100 ng/mL (75 - 250 nmol/L) Toxicity >100 ng/mL (>250 nmol/L) Performed By: #### L506.1000 #### [facility] [address] [place], [address] PROTHROMBIN TIME W/INR Collected: 10/31/2017 Status: F Source: [place] 2:54 PM [facility] REPOSITORY Order Comment: Result obtained is for confirmation testing of Fingerstick PT/INR Specimen # [id number] . 10/31/17 1506 HAILEYDENI THIS CONFIRMATION SPECIMEN RESULT IS FROM VENOUS BLOOD. TYPE CODE TESTS RESULT OUT OF REFERENCE UNITS RANGE LAB L300.4150 11.7-14.9 SECONDS High PROTIME 37.6 LAB L300.4200 High alert INR 3.8 Result Comment: CRITICAL VALUE VERIFIED. CALLED TO [facility] 10/31/17 1628 Lisbeth Cavazos. RESULTS READ BACK BY SAME . Performed By: #### L300.3900 #### [facility] [address] [place], [address] PROTIME W/INR Collected: 10/31/2017 Status: F Source: [place] FINGERSTICK 2:49 PM [facility] REPOSITORY TYPE CODE TESTS RESULT OUT OF REFERENCE UNITS RANGE LAB L9200.1001 11.9-14.4 SEC High PROTIME ISTAT 48.6 Result Comment: Reference Range 11.9 - 14.4 LAB L9200.2000 High alert INR ISTAT 4.30 Result Comment: Critical Value > 3.5 Performed By: #### L9200.0000 #### [facility] Point of Care [address] [facility] [place], [place] [address] BASIC METABOLIC Collected: 10/08/2017 Status: F Source: [place]A PROFILE (BMP) 10:47 AM [facility] REPOSITORY TYPE CODE TESTS RESULT OUT OF RANGE REFERENCE UNITS LAB L501.0100 74-106 mg/dL High GLU 235 Result Comment: Glucose result greater than or equal to 200 mg/dL suggests DIABETES MELLITUS per A.D.A. criteria. Please note revised GLUCOSE reference range effective 2017. LAB L501.1000 7-18 mg/dL High BUN 32 LAB L501.1100 0.55-1.02 mg/dL High CREAT,SERUM 1.12 Result Comment: The validity of the calculated GFR AND GFRAA in patients over 70 years has not been determined. Clinical correlation is essential. LAB L501.1110 >60 mL/min Low EST GFR 50 Result Comment: Non- GFR Calc LAB L501.1115 >60 mL/min Normal EST GFR - AA 61 Result Comment: GFR Calc LAB L501.1300 10-20 RATIO High BUN/CRE 28.6 LAB L501.2200 8.5-10.1 mg/dL CA Normal 9.6 LAB L501.5300 136-145 mmol/L Low NA 135 LAB L501.5600 3.5-5.1 mmol/L K Normal 4.8 LAB L501.5900 98-107 mmol/L CL Normal 98 LAB L501.6100 21.0-32.0 mmol/L Normal CO2 29.0 LAB L501.6200 5-15 Normal GAP 8 Performed By: #### L500.2500 #### [facility] [place], [address] CBC W/DIFF, AUTOMATED Collected: 10/08/2017 Status: F Source: [place] 10:41 AM [facility] REPOSITORY TYPE CODE TESTS RESULT OUT OF RANGE REFERENCE UNITS LAB L100.1000 4.4-11.0 K/mm3 Normal WBC 7.0 LAB L100.1200 4.2-5.4 M/mm3 Low RBC 3.47 LAB L100.1300 12.0-15.0 g/dl Low HGB 11.7 LAB L100.1400 37-47 % Low HCT 35.5 LAB L100.1500 81-99 fL High MCV 102.3 LAB L100.1600 27.0-32.0 pg High MCH 33.7 LAB L100.1700 32-36 g/gl Normal MCHC 33.0 LAB L100.1810 11.6-14.6 % High RDW CV 14.7 LAB L100.1820 35.1-43.9 fl High RDW SD 53.3 LAB L100.1900 150-450 K/mm3 Normal PLT 163 LAB L100.2000 6.2-12.0 fl Normal MPV 10.8 LAB L100.2100 47-70 % High NEUT% 83.7 LAB L100.2200 19-41 % Low LY% 10.3 LAB L100.2300 0-10 % Normal MONO% 5.1 LAB L100.2400 0-5 % Normal EO% 0.7 LAB L100.2500 0-1 % Normal BASO% 0.1 LAB L100.2550 0.0-0.9 % Normal IM GRAN % 0.100 Result Comment: IG% - Immature Granulocytes (promyelocytes, myelocytes and metamyelocytes) > 1% indicates that a LEFT SHIFT is Present. LAB L100.2620 2.0-7.7 X10 3/uL Normal Absolute Neut 5.9 LAB L100.2720 0.83-4.51 X10 3/ul Low Absolute Lymph 0.72 Performed By: #### L100.0100 #### [facility] [address] [place], [address] PROTHROMBIN TIME W/INR Collected: 10/08/2017 Status: F Source: [place] 10:41 AM [facility] REPOSITORY TYPE CODE TESTS RESULT OUT OF RANGE REFERENCE UNITS LAB L300.4150 11.7-14.9 SECONDS High PROTIME 28.5 LAB L300.4200 Normal INR 2.8 Performed By: #### L300.3900 #### [facility] [address] PROTIME W/INR Collected: 09/26/2017 Status: F Source: [place] FINGER[place]ICK 1:39 PM [facility] REPOSITORY TYPE CODE TESTS RESULT OUT OF REFERENCE UNITS RANGE LAB L9200.1001 11.9-14.4 SEC High PROTIME ISTAT 27.0 Result Comment: Reference Range 11.9 - 14.4 LAB L9200.2000 Normal INR ISTAT 2.30 Result Comment: Critical Value > 3.5 Performed By: #### L9200.0000 #### [facility] Point of Care [address] [place], [place] [address] PROTIME W/INR Collected: 09/12/2017 Status: F Source: [place]ING[place] 2:22 PM [facility] REPOSITORY TYPE CODE TESTS RESULT OUT OF REFERENCE UNITS RANGE LAB L9200.1001 11.9-14.4 SEC High PROTIME ISTAT 39.5 Result Comment: Reference Range 11.9 - 14.4 LAB L9200.2000 Normal INR ISTAT 3.50 Result Comment: Critical Value > 3.5 Performed By: #### L9200.0000 #### [facility] Point [facility] Care [address] [place] [address] CERV SPINE 2 OR 3 Observed: 09/11/2017 Status: F Source: [place] VIEWS 11:40 AM [facility] REPOSITORY [facility] Imaging Services [address] [place] [address] Cerv Spine 2 or 3 Views MR#: [id number] Acct: [id number] Name: JAMES BURK Rep #: [id number] : 1940 F 76 From: Hermelindo Barnett MD PCP: Romie Landeros MD, Chi Status: REG CLI Study: Cerv Spine 2 or 3 Views Date of Exam: 09/11/17 Exam# [id number] Ordering Dr: Romie Landeros MD STUDY: X-RAY - CERVICAL SPINE REASON FOR EXAM: Female, 76 years old. Right-sided neck pain one month after fall. TECHNIQUE: 4 view(s) of the cervical spine were obtained. COMPARISON: None FINDINGS: There are degenerative changes of the anterior atlantoaxial articulation. Normal odontoid process. There is straightening of the normal cervical lordosis. There is an 18 degree levoscoliosis centered at C3-4. There is multi-level endplate spondylosis. There is multi-level degenerative disc disease with multilevel disc space narrowing. There are mild to moderate multilevel degenerative arthroses of the bilateral facet joints. The prevertebral soft tissue structures are unremarkable. There is no demonstrated fracture of the cervical spine. Minor retrolisthesis of C6 on C7. RAD/Cerv Spine 2 or 3 Views IMPRESSION: Multilevel degenerative changes of the cervical spine, as described. Electronically Signed: Raji Barnett MD at 15:12 EST , Service support , CC: Romie Landeros MD Data Collector: Signed Observed: 09/10/2017 Status: F Source: [place] CULTURE, URINE 4:58 PM [facility] REPOSITORY Urine Culture Below infection level. ORGANISM 1: Mixed Gram Pos AND Gram Neg Org [place] Count 1000-10,000 MIX CULTURE Mixed contaminants. Submit a new specimen if indicated. Performed By: #### M100.0650 #### [facility] [address] [place], [address] CBC W/DIFF, AUTOMATED Collected: 09/10/2017 Status: F Source: [place] 2:05 PM [facility] REPOSITORY TYPE CODE TESTS RESULT OUT OF RANGE REFERENCE UNITS LAB L100.1000 4.4-11.0 K/mm3 Normal WBC 5.0 LAB L100.1200 4.2-5.4 M/mm3 Low RBC 3.37 LAB L100.1300 12.0-15.0 g/dl Low HGB 10.8 LAB L100.1400 37-47 % Low HCT 33.8 LAB L100.1500 81-99 fL High MCV 100.3 LAB L100.1600 27.0-32.0 pg Normal MCH 32.0 LAB L100.1700 32-36 g/gl Normal MCHC 32.0 LAB L100.1810 11.6-14.6 % High RDW CV 14.9 LAB L100.1820 35.1-43.9 fl High RDW SD 52.5 LAB L100.1900 150-450 K/mm3 Normal PLT 161 LAB L100.2000 6.2-12.0 fl Normal MPV 10.5 LAB L100.2100 47-70 % High NEUT% 76.4 LAB L100.2200 19-41 % Low LY% 12.8 LAB L100.2300 0-10 % Normal MONO% 9.0 LAB L100.2400 0-5 % Normal EO% 1.4 LAB L100.2500 0-1 % Normal BASO% 0.2 LAB L100.2550 0.0-0.9 % Normal IM GRAN % 0.200 Result Comment: IG% - Immature Granulocytes (promyelocytes, myelocytes and metamyelocytes) > 1% indicates that a LEFT SHIFT is Present. LAB L100.2620 2.0-7.7 X10 3/uL Normal Absolute Neut 3.8 LAB L100.2720 0.83-4.51 X10 3/ul Low Absolute Lymph 0.64 Performed By: #### L100.0100 #### [facility] [address] [place], [address] COMPREHENSIVE METABOLIC Collected: 09/10/2017 Status: F Source: [facility] 2:05 PM [facility] REPOSITORY TYPE CODE TESTS RESULT OUT OF RANGE REFERENCE UNITS LAB L501.0100 70-110 mg/dL Normal GLU 97 LAB L501.1000 7-18 mg/dL High BUN 43 LAB L501.1100 0.55-1.02 mg/dL High 1.12 CREAT,SERUM Result Comment: The validity of the calculated GFR AND GFRAA in patients over 70 years has not been determined. Clinical correlation is essential. LAB L501.1110 >60 mL/min Low EST GFR 50 Result Comment: Non- GFR Calc LAB L501.1115 >60 mL/min Normal EST GFR - AA 61 Result Comment: GFR Calc LAB L501.1300 10-20 RATIO High BUN/CRE 38.4 LAB L501.1500 6.4-8.2 g/dL Low T PROT 6.0 LAB L501.1800 3.4-5.0 g/dL Low ALB 3.3 Result Comment: Please note revised Albumin AND Globulin reference range effective 2017. LAB L501.1950 2.2-4.2 g/dL Normal GLOB 2.7 LAB L501.2000 0.9-2.4 RATIO Normal A/G 1.2 LAB L501.2200 8.5-10.1 mg/dL Low CA 8.4 LAB L501.4100 15-37 U/L Normal AST 28 LAB L501.4305 45-117 U/L Normal ALK P 86 LAB L501.4405 12-78 U/L Normal ALT 32 LAB L501.4600 0.20-1.00 mg/dL Normal T BILI 0.80 LAB L501.5300 136-145 mmol/L Normal NA 138 LAB L501.5600 3.5-5.1 mmol/L Normal K 4.4 LAB L501.5900 98-107 mmol/L Normal CL 105 LAB L501.6100 21.0-32.0 mmol/L Normal CO2 23.0 LAB L501.6200 5-15 Normal GAP 10 Performed By: #### L500.4050 #### [facility] [address] [place], [address] Observed: 09/10/2017 Status: F Source: [place] RESPIRATORY PANEL 1:59 PM [facility] MOLECULAR REPOSITORY RP PANEL Normal Reference Range = Not Detected RESULTS CALLED TO NURSE VOICEMAIL 09/11/17 1014 Zena Mittal. Copy of report sent to Infection Control Printer MS#[id number] 09/11/17 1015 GAVINOCATRACHITO. ADENOVIRUS Not Detected HUMAN METAPHNEUMO Positive for HUMAN METAPHNEUMO VIRUS by NAAT technology INFLUENZA A Not Detected INFLUENZA A (SUBTYPE H1) Not Detected INFLUENZA A (SUBTYPE H3) Not Detected INFLUENZA B Not Detected PARAINFLUENZA 1 Not Detected PARAINFLUENZA 2 Not Detected PARAINFLUENZA 3 Not Detected PARAINFLUENZA 4 Not Detected RHINOVIRUS Not Detected RSV A Not Detected RSV B Not Detected NAAT METHOD Testing was performed using nucleic acid amplification ORGANISM 1: HUMAN META Performed By: #### M100.638 #### [facility] [address] [place], [address] BRAIN/HEAD WITHOUT Observed: 09/10/2017 Status: F Source: [place] CONTRAST 1:44 PM [facility] REPOSITORY [facility] Imaging Services [address] [place] [address] Brain/Head without Contrast MR#: [id number] Acct: [id number] Name: JAMES BURK Rep #: [id number] : 1940 F 76 From: Aman Real MD PCP: Romie Landeros MD, Chi Status: REG CLI Study: Brain/Head without Contrast Date of Exam: 09/10/17 Exam# [id number] Ordering Dr: Romie Landeros MD STUDY: CT BRAIN WITHOUT CONTRAST REASON FOR EXAM: Female, 76 years old. Closed head injury due to recent falls. History of left breast carcinoma with mastectomy and radiation treatment. RADIATION DOSAGE (If Supplied By Facility): CTDIvol = ( 44.99 ) mGy, DLP = ( 762.36 ) mGycm TECHNIQUE: Transaxial CT imaging of the brain was performed without administration of intravenous contrast material. Individualized dose optimization techniques were used for this CT. COMPARISON: Comparison is made with prior study dated September 14, 2014. FINDINGS: Normal soft tissue structures. Normal calvarium. There is mild cerebral atrophy with widening of the extra- axial spaces and ventricular dilatation. Normal white matter tracts of the cerebral hemispheres. Normal basal ganglia and thalami. Normal brainstem. Normal cerebellum. There is a 1.1 cm x 0.7 cm calcified density along the inner table of the left frontal bone. This may represent a small meningioma. There is no intracranial hemorrhage. There are no findings of an acute ischemic infarction. Atherosclerotic calcification of the cavernous portions of the internal carotid arteries bilaterally. Small air-fluid level in the right maxillary sinus. Partial opacification of the ethmoid sinuses. Small air-fluid levels in the sphenoid sinus. CT/Brain/Head without Contrast IMPRESSION: Chronic involutional changes of the brain. Sinusitis. Calcified density abutting the left frontal bone as described. This may represent a small calcified meningioma. This is unchanged. Electronically Signed: Aman Real MD at 14:39 EST Tel [phone], Service support , CC: Romie Landeros MD Data Collector: Signed PROTIME W/INR Collected: 09/03/2017 Status: F Source: [place] FINGER[place]ICK 2:31 PM [facility] REPOSITORY TYPE CODE TESTS RESULT OUT OF REFERENCE UNITS RANGE LAB L9200.1001 11.9-14.4 SEC High PROTIME ISTAT 28.5 Result Comment: Reference Range 11.9 - 14.4 LAB L9200.2000 Normal INR ISTAT 2.50 Result Comment: Critical Value > 3.5 Performed By: #### L9200.0000 #### [facility] Point of Care [address] [place] [address] CBC W/DIFF, AUTOMATED Collected: 08/29/2017 Status: F Source: PRISCILLA 9:26 AM [facility] REPOSITORY TYPE CODE TESTS RESULT OUT OF RANGE REFERENCE UNITS LAB L100.1000 4.4-11.0 K/mm3 Normal WBC 6.4 LAB L100.1200 4.2-5.4 M/mm3 Low RBC 3.84 LAB L100.1300 12.0-15.0 g/dl Normal HGB 12.6 LAB L100.1400 37-47 % Normal HCT 37.5 LAB L100.1500 81-99 fL Normal MCV 97.7 LAB L100.1600 27.0-32.0 pg High MCH 32.8 LAB L100.1700 32-36 g/gl Normal MCHC 33.6 LAB L100.1810 11.6-14.6 % High RDW CV 15.0 LAB L100.1820 35.1-43.9 fl High RDW SD 51.8 LAB L100.1900 150-450 K/mm3 Normal PLT 262 LAB L100.2000 6.2-12.0 fl Normal MPV 10.1 LAB L100.2100 47-70 % High NEUT% 72.3 LAB L100.2200 19-41 % Low LY% 9.2 LAB L100.2300 0-10 % High MONO% 14.8 LAB L100.2400 0-5 % Normal EO% 2.2 LAB L100.2500 0-1 % Normal BASO% 0.3 LAB L100.2550 0.0-0.9 % High IM GRAN % 1.200 Result Comment: IG% - Immature Granulocytes (promyelocytes, myelocytes and metamyelocytes) > 1% indicates that a LEFT SHIFT is Present. LAB L100.2620 2.0-7.7 X10 3/uL Normal Absolute Neut 4.7 LAB L100.2720 0.83-4.51 X10 3/ul Low Absolute Lymph 0.59 LAB L100.4500 SMEAR Normal COMMENT Result Comment: SLIDE SCANNED Performed By: #### L100.0100 #### [facility] [address] [place], [address] COMPREHENSIVE METABOLIC Collected: 08/29/2017 Status: F Source: PRISCILLA LUNDY 9:26 AM [facility] REPOSITORY TYPE CODE TESTS RESULT OUT OF RANGE REFERENCE UNITS LAB L501.0100 70-110 mg/dL High GLU 129 Result Comment: Fasting Glucose result greater than or equal to 126 mg/dL suggests DIABETES MELLITUS per A.D.A. criteria. LAB L501.1000 7-18 mg/dL High BUN 37 LAB L501.1100 0.55-1.02 mg/dL High CREAT,SERUM 1.10 Result Comment: The validity of the calculated GFR AND GFRAA in patients over 70 years has not been determined. Clinical correlation is essential. LAB L501.1110 >60 mL/min Low EST GFR 51 Result Comment: Non- GFR Calc LAB L501.1115 >60 mL/min Normal EST GFR - AA 62 Result Comment: GFR Calc LAB L501.1300 10-20 RATIO High BUN/CRE 33.6 LAB L501.1500 6.4-8.2 g/dL T Normal PROT 6.8 LAB L501.1800 3.4-5.0 g/dL Normal ALB 3.7 Result Comment: Please note revised Albumin AND Globulin reference range effective 2017. LAB L501.1950 2.2-4.2 g/dL Normal GLOB 3.1 LAB L501.2000 0.9-2.4 RATIO Normal A/G 1.2 LAB L501.2200 8.5-10.1 mg/dL Normal CA 9.0 LAB L501.4100 15-37 U/L Normal AST 30 LAB L501.4305 45-117 U/L High ALK P 123 LAB L501.4405 12-78 U/L Normal ALT 36 LAB L501.4600 0.20-1.00 mg/dL Normal T BILI 0.80 LAB L501.5300 136-145 mmol/L Low NA 134 LAB L501.5600 3.5-5.1 mmol/L Normal K 4.8 LAB L501.5900 98-107 mmol/L Normal CL 101 LAB L501.6100 21.0-32.0 mmol/L Normal CO2 28.0 LAB L501.6200 5-15 Normal GAP 5 Performed By: #### L500.4050 #### [facility] [address] [place], [address] PROTHROMBIN TIME W/INR Collected: 08/29/2017 Status: F Source: PRISCILLA 9:25 AM [facility] REPOSITORY TYPE CODE TESTS RESULT OUT OF REFERENCE UNITS RANGE LAB L300.4150 11.7-14.9 SECONDS High PROTIME 41.1 LAB L300.4200 High alert INR 4.5 Result Comment: CRITICAL VALUE VERIFIED. CALLED TO CIARA 08/29/17 Coco6 Jarred [place]. RESULTS READ BACK BY CIARA . Performed By: #### L300.3900 #### [facility] [address] [place], [address] PROTIME W/INR Collected: 08/15/2017 Status: F Source: PRISCILLA FINGERSTICK 12:28 PM [facility] REPOSITORY TYPE CODE TESTS RESULT OUT OF REFERENCE UNITS RANGE LAB L9200.1001 11.9-14.4 SEC High PROTIME ISTAT 37.2 Result Comment: Reference Range 11.9 - 14.4 LAB L9200.2000 Normal INR ISTAT 3.30 Result Comment: Critical Value > 3.5 Performed By: #### L9200.0000 #### [facility] Point of Care [address] [place] [address] OFFICE VISIT REPORT Observed: 08/07/2017 Status: F Source: PRISCILLA 5:00 PM [facility] REPOSITORY [place] [address] [place] [address] OFFICE VISIT Date of Service: 08/04/17 MR#: [id number] Acct: [id number] Patient: JAMES BURK Rep #: [id number] : 1940 Provider: Shantal Peres Age/Sex: 76/F Location: [facility] Status: Signed Device Device Date Interviewed: 08/04/17 Follow-up Location: remote Interview Reason: scheduled follow up Senior Teradata Developer: Codenomicon Name: Energen ICD IS-1/DF-1 Model: E143 Serial #: [id number] Implant Date: 03/31/15 Year(s): 2 Implant Physician: Dr. Bubba Valenzuela Patient Characteristics Ventricular Indication: Nonsustained VT Patient Substrate: Ischemic cardiomyopathy (inducible VT) Ejection fraction %: 20 to 24 (05/2017) By: Echo Underlying rhythm: Sinus rhythm Pacemaker Dependent: No Device Characteristics Device: Dual Chamber Type: Implantable defibrillator Remote Follow-Up: Latitude Leads Lead #1 Senior Teradata Developer Lead 1: Guidant Model Lead 1: 4469 Serial# Lead 1: [id number] Date Implanted Lead 1: 08/22/04 Position Lead 1: RA Lead #2 Senior Teradata Developer Lead 2: Guidant Model Lead 2: 0184 Serial# Lead 2: [id number] Date Implanted Lead 2: 08/22/04 Position Lead 2: RV Diagnostics Pacing % RA Pacin % RV Pacin Mode Switching Total # Episodes: 74 % Mode switched: 0.2 Arrhythmias VF Episodes: 0 Fast VT Episodes: 0 Slow VT Episodes: 0 Atrial Tach Episodes: 0 Atrial Fib Episodes: 0 Non-Sust Episodes: 12 Measurements Battery Charge Time (Sec): 10.4 Battery Status: DANIELE Predicted Remaining Longevity (months or years): 8 years RA Measurements Signal Amplitude (mV): 2.4 Impedance (Ohms): 408 RV Measurements Impedance (Ohms): 575 Shock Impedance (Ohms): 77 Tachy Settings VF Therapies VF Therapy Status On On On On On On Energy 29 41 41 41 41 41 Pathway ATP: During charging on FVT Therapies FVT Therapy Status On On On On On On VT Therapies FVT Therapy Status On/Off On/Off On/Off On/Off On/Off On/Off Comments: Dawood Settings Dawood Settings Pacemaker Mode DDDR Output/Sensing V/PW (ms) Sensitivity RA RV LV Comments: Comments Summary Comments: Remote Dual Chamber ICD Evaluation: Remote interrogation shows 74 MS episodes, 0.2% total time and 12 NSVT episodes since 03/31/15. Stored e-grams available for review for NSVT episodes show MVT @ 19 to 220 bpm x 4 beats and 11 beats (AV dissociated). Presenting rhythm shows AAI pacing @ 74 ppm. 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 Battery longevity approx 8 years. Lead impedances and atrial sensing remain stable. Normal remote ICD function. Pt notified remote transmission received and next f/u appt scheduled for in 3 mos. 08/07/17 1700 <Electronically signed by John Hayden MD> Date John Hayden MD 08/04/17 1559<Electronically signed by Shantal Peres > Birgit Signature: Date (if applicable) Shantal Peres CC: 12 LEAD ELECTROCARDIOGRAM Observed: 08/06/2017 Status: F Source: PRISCILLA 3:01 PM [facility] REPOSITORY [facility] Cardiovascular Services [address] [place] [address] 12 Lead EKG 08/01/17 1222 MR#: [id number] Acct: [id number] Name: JAMES BURK Rep #: [id number] : 1940 76 From: Rohan Whitehead MD Attending Dr: Status: DEP ER Ordering Dr: Beto Harvey DO Date: 08/01/17 Location: ED Sex: F C Admitted: Test Reason : Blood Pressure : / mmHG Vent. Rate : 086 BPM Atrial Rate : 080 BPM P-R Int : 000 ms QRS Dur : 174 ms QT Int : 438 ms P-R-T Axes : 106 -75 092 degrees QTc Int : 524 ms Ventricular-paced rhythm Abnormal ECG Confirmed by ROHAN WHITEHEAD MD ([id number]), editorial intern ERIBERTO JIMENEZ (56) on 08/06/2017 3:01:10 PM Referred By: ZEV Confirmed By:ROHAN WHITEHEAD MD 08/06/17 1501 Date Rohan Whitehead MD CC: Romie Landeros MD Signed PROTIME W/INR Collected: 08/06/2017 Status: F Source: PRISCILLA FINGERSTICK 12:28 PM [facility] REPOSITORY TYPE CODE TESTS RESULT OUT OF REFERENCE UNITS RANGE LAB L9200.1001 11.9-14.4 SEC High PROTIME ISTAT 40.7 Result Comment: Reference Range 11.9 - 14.4 LAB L9200.2000 High alert INR ISTAT 3.60 Result Comment: Critical Value > 3.5 Performed By: #### L9200.0000 #### [facility] Point of Care [address] [address] ALLERGIES ALLERGIES DATE TYPE / CODE NAME / CODE REACTION SEVERITY SOURCE 08/03/2018 Drug Iodinated I JUMP AROUND Unknown [facility] All[facility]/416 Contrast- Oral ON THE TABLE Hospital 389376(SNOM and IV Repository ED CT) Dye/[id number](R XNORM) 08/03/2018 Drug HERMILO Unknown Unknown [facility] Allergy/416 Inhibitors/F0010 Hospital 344873(SNOM 41500(RXNORM) Repository ED CT) 08/03/2018 Drug iodine/[id number] I JUMP AND Unknown [facility] Allergy/416 2(RXNORM) FLOP AROUND ON Hospital 213929(SNOM THE TABLE Repository ED CT) 08/03/2018 Drug amiodarone/F0060 Unknown Unknown [facility] Allergy/416 07981(RXNORM) Hospital 860146(SNOM Repository ED CT) ENCOUNTERS ENCOUNTERS ADMIT/DISCHARGE ACCOUNT ADMITTING ENCOUNTER LOCATION SOURCE NUMBER CLASS 08/03/2018 [id number] Ambulatory [place] [facility] 5 [facility] ing:LAB Repository 08/03/2018/ [id number] Ambulatory BMSBuilding:B [place] 8 2 [place] Repository 07/29/2018 [id number] Ambulatory Priscilla Priscilla 0 [facility] ing:POLAB3 Repository 07/20/2018 [id number] Ambulatory [place]ney Cheney 0 [facility] ing:LAB.FUTUR Repository E 07/14/2018 [id number] Ambulatory Priscilla Cheney 9 [facility] ing:POLAB3 Repository 07/06/2018/ [id number] Ambulatory [place] Priscilla 8 7 [facility] ing:MTLAB Repository 06/30/2018 [id number] Ambulatory Cheney Cheney 4 [facility] ing:POLAB3 Repository 06/23/2018 [id number] Ambulatory [place]ney Cheney 5 [facility] ing:POLAB3 Repository 06/10/2018 [id number] Ambulatory Priscilla Priscilla 1 [facility] ing:POLAB3 Repository 05/26/2018 [id number] Ambulatory [place]ney Priscilla [address] [facility] Hospital ing:RAD Repository 05/15/2018/ [id number] Ambulatory [place] Priscilla 8 2 [facility] ing:MTLAB Repository 05/13/2018/ [id number] Ambulatory BMSBuilding:B [place] 8 5 [facility] Repository 05/08/2018 [id number] Ambulatory Priscilla Cheney [address] [facility] Hospital ing:POLAB3 Repository 04/06/2018/ [id number] Ambulatory [place] Priscilla [address] [facility] Hospital ing:MTLAB Repository 04/02/2018/ [id number] Agyepong, Ambulatory Cheney Cheney 8 1 [facility] ing:PCURoom: Repository [id number]: 1 04/02/2018 [id number] Agyepong, Ambulatory BMSBuilding:B [place] 5 [place] Repository 04/02/2018 [id number] Agyepong, Ambulatory BMSBuilding:B Pr[place] 4 [place] [facility] Repository 03/20/2018 [id number] Ambulatory [place] Priscilla [address] [facility] Hospital ing:LAB.FUTUR Repository E 02/20/2018/ [id number] Ambulatory [place] Priscilla 8 5 [facility] ing:MTLAB Repository 02/13/2018 [id number] Ambulatory [place] Priscilla 2 [facility] Hospital ing:POLAB3 Repository 02/09/2018/ [id number] Ambulatory Priscilla [place]ney [address] [facility] Hospital ing:MTLAB Repository 02/04/2018/ [id number] Ambulatory BMSBuilding:B [place] 8 8 [facility] Repository 02/04/2018 [id number] Ambulatory BMSBuilding:B [place] 3 [facility] Repository 02/02/2018/ [id number] Ambulatory BMSBuilding:B [place] 8 2 [facility] Hospital Repository 01/09/2018/ [id number] Ambulatory Priscilla Cheney [address] [facility] Hospital ing:MTLAB Repository 12/12/2017/ [id number] Ambulatory [place] Priscilla 8 5 [facility] ing:MTLAB Repository 11/07/2017/ [id number] Ambulatory [place] Priscilla 8 9 [facility] Hospital ing:MTLAB Repository 11/04/2017 [id number] Ambulatory Cheney Cheney [address] [facility] Hospital ing:POLAB3 Repository 11/03/2017/ [id number] Ambulatory BMSBuilding:B [place] 8 8 [facility] Repository 10/16/2017 [id number] Ambulatory Priscilla [place] 1 [facility] Hospital ing:MTLAB Repository 10/09/2017 [id number] Ambulatory [place] Priscilla 5 [facility] Hospital ing:LAB.FUTUR Repository E 10/08/2017/ [id number] Ambulatory Cheney Cheney 8 8 [facility] Hospital ing:MTLAB Repository 09/11/2017 [id number] Ambulatory [place] Priscilla 5 [facility] Hospital ing:RAD Repository 09/10/2017 [id number] Ambulatory Priscilla [place] 5 [facility] ing:POLAB3 Repository 09/10/2017 [id number] Ambulatory Priscilla [place] 6 [facility] ing:CT Repository 08/29/2017/ [id number] Ambulatory Priscilla Priscilla 8 8 [facility] ing:MTLAB Repository 08/15/2017/ [id number] Ambulatory Cheney Cheney 7 3 [facility] Hospital ing:MTLAB Repository 08/04/2017/ [id number] Ambulatory BMSBuilding:B [place] 7 4 [facility] Repository 08/01/2017/ [id number] Emergency Priscilla Priscilla 7 8 Community [facility] ing:ED Repository PAYERS PAYERS ENCOUNTER GUARANTOR PAYER SUBSCRIBER SOURCE 08/03/2018 JAMES J Primary JAMES J [place] [id number] CR Insurance:MEDICARE ANDERSONDOB: [address], PART A olicy Number: [id number] Hospital [address]Sxv: [id number] Repository Date:2018-07-20 () 08/03/2018 Secondary JAMES J [place] Insurance:HUMANA ANDERSONDOB: [facility] [id number] Hospital Number: Repository [id number] Date:6131-49-44IZ [address] [place] [address]FW: 08/03/2018 Tertiary NOT GIVENUNK [place] Insurance:SELF PAY [facility] Number: Effective Repository Date:2018-07-20 08/03/2018 JAMES J Primary JAMES J [place] [id number] CR Insurance:MEDICARE ANDERSONDOB: [address], PART A olicy Number: [id number] Hospital [address]Nwa: [id number] Repository Date:2018-02-04 () 08/03/2018 Secondary JAMES J [place] Insurance:HUMANA ANDERSONDOB: [facility] [id number] Hospital Number: Repository [id number] Date:0401-74-92CE [address] [place] [address]EC: 08/03/2018 Tertiary NOT GIVENUNK [place] Insurance:SELF PAY [facility] Number: Effective Repository Date:2018-07-31 07/29/2018 JAMES J Primary JAMES J Pr[place] [id number] CR Insurance:MEDICARE ANDERSONDOB: [address], PART A olicy Number: [id number] Hospital [address]Tqp: [id number] Repository Date:2018-07-16 () 07/29/2018 Secondary JAMES J Priscilla Insurance:HUMANA ANDERSONDOB: Community COMMERCIALPolicy [id number] Hospital Number: Repository [id number] Date:8898-35-40ZH [address] [address]MI: 07/29/2018 Tertiary NOT GIVENUNK Priscilla Insurance:SELF PAY [facility] Effective Repository Date:2018-07-16 07/20/2018 JAMES J Primary JAMES J [place] [id number] CR Insurance:MEDICARE ANDERSONDOB: [address] BPolicy Number: [id number] Hospital [address]Pey: [id number] Repository Date:2018-06-11 () 07/20/2018 Secondary JAMES J Priscilla Insurance:HUMANA ANDERSONDOB: [facility] [id number] Hospital Number: Repository [id number] Date:4331-05-24HX [address] [address]AR: 07/20/2018 Tertiary NOT GIVENUNK [place] Insurance:SELF PAY [facility] Number: Effective Repository Date:2018-06-11 07/14/2018 JAMES J Primary JAMES J [place] [id number] CR Insurance:MEDICARE ANDERSONDOB: [address] [place], PART A BPolicy Number: [id number] Hospital [address]Eoy: [id number] Repository Date:2018-07-14 () 07/14/2018 Secondary JAMES J [place] Insurance:HUMANA ANDERSONDOB: [facility] COMMERCIALPolicy [id number] Hospital Number: Repository [id number] Date:1558-74-65UU[address] [address]NX: 07/14/2018 Tertiary NOT GIVENUNK [place] Insurance:SELF PAY [facility] Number: Effective Repository Date:2018-07-14 07/06/2018 JAMES J Primary JAMES J Pr[place] [id number] CR Insurance:MEDICARE ANDERSONDOB: Community [address] [facility] BPolicy Number: [id number] Hospital [address]Ele: [id number] Repository Date:2005-11-16 () 07/06/2018 Secondary JAMES J [place] Insurance:HUMANA ANDERSONDOB: [facility] [id number] Hospital Number: Repository [id number] Date:8329-91-99NY [address] [address]QT: 07/06/2018 Tertiary NOT GIVENUNK Priscilla Insurance:SELF PAY [facility] Hospital Number: Effective Repository Date:2018-05-19 06/30/2018 JAMES J Primary JAMES J [place] [id number] CR Insurance:MEDICARE ANDERSONDOB: [address] [facility] PART A BPolicy Number: [id number] Hospital [address]Lzq: [id number] Repository Date:2018-06-30 () 06/30/2018 Secondary JAMES J Priscilla Insurance:HUMANA ANDERSONDOB: [facility] [id number] Hospital Number: Repository [id number] Date:4538-90-24MI [address] [address]DO: 06/30/2018 Tertiary NOT GIVENUNK [place] Insurance:SELF PAY [facility] Hospital Number: Effective Repository Date:2018-06-30 06/23/2018 JAMES J Primary JAMES J [place] [id number] CR Insurance:MEDICARE ANDERSONDOB: [address] [place], PART A BPolicy Number: [id number] Hospital [address]Mxx: [id number] Repository Date:2018-06-23 () 06/23/2018 Secondary JAMES J Pr[place] Insurance:HUMANA ANDERSONDOB: [facility] [id number] Hospital Number: Repository [id number] Date:8154-56-33NE [address] [address]LV: 06/23/2018 Tertiary NOT GIVENUNK [place] Insurance:SELF PAY [facility] Hospital Number: Effective Repository Date:2018-06-23 06/10/2018 JAMES J Primary JAMES J Pr[place] [id number] CR Insurance:MEDICARE ANDERSONDOB: [address] BPolicy Number: [id number] Hospital [address]Bxa: [id number] Repository Date:2018-06-10 () 06/10/2018 Secondary JAMES J [place] Insurance:HUMANA ANDERSONDOB: [facility] [id number] Hospital Number: Repository [id number] Date:7828-68-30XQ [address] [address]PU: 06/10/2018 Tertiary NOT GIVENUNK [place] Insurance:SELF PAY [facility] Hospital Number: Effective Repository Date:2018-06-10 05/26/2018 JAMES J Primary JAMES J Pr[place]illa [id number] CR Insurance:MEDICARE ANDERSONDOB: [address], PART A BPolicy Number: [id number] Hospital [address]Hxj: [id number] Repository Date:2018-05-26 () 05/26/2018 Secondary JAMES J Priscilla Insurance:HUMANA ANDERSONDOB: [facility] [id number] Hospital Number: Repository [id number] Date:4250-46-60PK [address] [address]XH: 05/26/2018 Tertiary NOT GIVENUNK [place] Insurance:SELF PAY [facility] Hospital Number: Effective Repository Date:2018-05-26 05/15/2018 JAMES J Primary JAMES J [place] [id number] Insurance:MEDICARE ANDERSONDOB: [facility] PART A BPolicy Number: [id number] [id number] [place]ository [place] [address]Yax: Date:2005-11-16 () 05/15/2018 Secondary JAMES J [place] Insurance:HUMANA ANDERSONDOB: [facility] [id number] Hospital Number: Repository [id number] Date:5821-96-19OW [address] [address]NN: 05/15/2018 Tertiary NOT GIVENUNK Pr[place] Insurance:SELF PAY [facility] Hospital Number: Effective Repository Date:2018-04-22 05/13/2018 JAMES J Primary JAMES J [place] [id number] Insurance:MEDICARE ANDERSONDOB: [facility] PART A BPolicy Number: [id number] [id number] [place]ository [place] [address]Shx: Date:2018-02-02 () 05/13/2018 Secondary JAMES J [place] Insurance:HUMANA ANDERSONDOB: [facility] [id number] Hospital Number: Repository [id number] Date:9229-16-85AZ [address] [place] [address]IU: 05/13/2018 Tertiary NOT GIVENUNK [place] Insurance:SELF PAY [facility] Hospital Number: Effective Repository Date:2018-05-13 05/08/2018 JAMES J Primary JAMES J [place] [id number] CR Insurance:MEDICARE ANDERSONDOB: [address] BPolicy Number: [id number] Hospital [address]Ukx: [id number] Repository Date:2018-05-08 () 05/08/2018 Secondary JAMES J [place] Insurance:HUMANA ANDERSONDOB: [facility] [id number] Hospital Number: Repository [id number] Date:5125-55-55VI [address] [address]PV: 05/08/2018 Tertiary NOT GIVENUNK Pr[place] Insurance:SELF PAY [facility] Hospital Number: Effective Repository Date:2018-05-08 04/06/2018 JAMES J Primary JAMES J [place] [id number] CR Insurance:MEDICARE ANDERSONDOB: [facility] olicy Number: [id number] Hospital [address]Ozx: [id number] Repository Date:2005-11-16 () 04/06/2018 Secondary JAMES J [place] Insurance:HUMANA ANDERSONDOB: [facility] [id number] Hospital Number: Repository [id number] Date:8112-72-54CI [address] [address]YV: 04/06/2018 Tertiary NOT GIVENUNK Pr[place] Insurance:SELF PAY [facility] Hospital Number: Effective Repository Date:2018-03-20 04/02/2018 JAMES J Primary JAMES J [place] [id number] CR Insurance:MEDICARE ANDERSONDOB: [address] [place], [facility]: [id number] Hospital [address]Brh: [id number] Repository Date:2018-04-02 () 04/02/2018 Secondary JAMES J [place] Insurance:HUMANA ANDERSONDOB: [facility] [id number] Hospital Number: Repository [id number] Date:1021-37-65QE[address] [address]FG: 04/02/2018 Tertiary NOT GIVENUNK Prisc[place] Insurance:SELF PAY [facility] Hospital Number: Effective Repository Date:2018-04-02 04/02/2018 JAMES J Primary JAMES J [place] [id number] CR Insurance:MEDICARE ANDERSONDOB: [facility] [address] [place], PART A [facility] Number: [id number] Hospital [address]Huf: [id number] Repository Date:2018-04-02 () 04/02/2018 Secondary JAMES J Priscilla Insurance:HUMANA ANDERSONDOB: [facility] [id number] Hospital Number: Repository [id number] Date:5501-95-18ER [address] [place] [address]ZZ: 04/02/2018 Tertiary NOT GIVENUNK [place] Insurance:SELF PAY [facility] Number: Effective Repository Date:2018-04-02 04/02/2018 JAMES J Primary JAMES J [place] [id number] CR Insurance:MEDICARE ANDERSONDOB: [facility] BPolicy Number: [id number] Hospital [address]Uhd: [id number] Repository Date:2018-04-02 () 04/02/2018 Secondary JAMES J Priscilla Insurance:HUMANA ANDERSONDOB: [facility] [id number] Hospital Number: Repository [id number] Date:4664-43-05NO [address] [address]PR: 04/02/2018 Tertiary NOT GIVENUNK [place] Insurance:SELF PAY [facility] Hospital Number: Effective Repository Date:2018-04-02 03/20/2018 JAMES J Primary JAMES J Pr[place] [id number] CR Insurance:MEDICARE ANDERSONDOB: [facility] [facility] olic Number: [id number] Hospital [address]Ulf: [id number] Repository Date:2017-11-12 () 03/20/2018 Secondary JAMES J Cheney Insurance:HUMANA ANDERSONDOB: [facility] [id number] Hospital Number: Repository [id number] Date:8166-38-90YQ [address] [place] [address]PM: 03/20/2018 Tertiary NOT GIVENUNK Cheney Insurance:SELF PAY [facility] Number: Effective Repository Date:2017-11-12 02/20/2018 JAMES J Primary JAMES J Priscilla [id number] Insurance:MEDICARE ANDERSONDOB: [facility] [id number] PART A BPolicy Number: [id number] [place] [id number] Repository [address]18[address]Jtl: (979) Date:2005-11-16 [phone] () 02/20/2018 Secondary JAMES J Priscilla Insurance:HUMANA ANDERSONDOB: [facility] [id number] Hospital Number: Repository [id number] Date:1387-63-79TL [address] [place] [address]NJ: 02/20/2018 Tertiary NOT GIVENUNK Priscilla Insurance:SELF PAY [facility] Hospital Number: Effective Repository Date:2018-02-13 02/13/2018 JAMES J Primary JAMES J Priscilla [id number] Insurance:MEDICARE ANDERSONDOB: [facility] PART A olicy Number: [id number] [id number] [place]ository [place] [address]Wlb: Date:2018-02-13 () 02/13/2018 Secondary JAMES J Cheney Insurance:HUMANA ANDERSONDOB: [facility] [id number] Hospital Number: Repository [id number] Date:8294-29-04SX [address] [address]NR: 02/13/2018 Tertiary NOT GIVENUNK Priscilla Insurance:SELF PAY [facility] Hospital Number: Effective Repository Date:2018-02-13 02/09/2018 JAMES J Primary JAMES J Priscilla [id number] Insurance:MEDICARE ANDERSONDOB: [facility] PART A BPolicy Number: [id number] [id number] Repository [place] [address]Yob: Date:2005-11-16 () 02/09/2018 Secondary JAMES J Cheney Insurance:HUMANA ANDERSONDOB: [facility] [id number] Hospital Number: Repository [id number] Date:9912-24-35GF [address] [address]VC: 02/09/2018 Tertiary NOT GIVENUNK Cheney Insurance:SELF PAY [facility] Hospital Number: Effective Repository Date:2018-01-15 02/04/2018 JAMES J Primary JAMES J Priscilla [id number] Insurance:MEDICARE ANDERSONDOB: [facility] PART A olicy Number: [id number], [id number] [place]ository [place] [address]Ylf: Date:2017-08-07 () 02/04/2018 Secondary JAMES J Cheney Insurance:HUMANA ANDERSONDOB: [facility] [id number] Hospital Number: Repository [id number] Date:5565-66-59IZ [address] [place] [address]EN: 02/04/2018 Tertiary NOT GIVENUNK Cheney Insurance:SELF PAY [facility] Number: Effective Repository Date:2018-02-04 02/04/2018 JAMES J Primary JAMES J Cheney [id number] CR Insurance:MEDICARE ANDERSONDOB: [address] [facility]: [id number] Hospital [address]Ydg: [id number] Repository Date:2018-02-04 () 02/04/2018 Secondary JAMES J Cheney Insurance:HUMANA ANDERSONDOB: [facility] [id number] Hospital Number: Repository [id number] Date:0445-31-63JG [address] [place] [address]GO: 02/04/2018 Tertiary NOT GIVENUNK Cheney Insurance:SELF PAY [facility] Hospital Number: Effective Repository Date:2018-02-04 02/02/2018 JAMES J Primary JAMES J Cheney [id number] CR Insurance:MEDICARE ANDERSONDOB: [address], PART A [facility] Number: [id number] Hospital [address]Kyj: [id number] Repository Date:2017-11-03 () 02/02/2018 Secondary JAMES J Priscilla Insurance:HUMANA ANDERSONDOB: [facility] [id number] Hospital Number: Repository [id number] Date:0829-68-58QW[address] [address]SS: 02/02/2018 Tertiary NOT GIVENUNK Priscilla Insurance:SELF PAY [facility] Number: Effective Repository Date:2018-02-02 01/09/2018 JAMES J Primary JAMES J Cheney [id number] CR Insurance:MEDICARE ANDERSONDOB: [facility] [address] [place], PART A olicy Number: [id number] Hospital [address]Oeh: [id number] Repository Date:2005-11-16 () 01/09/2018 Secondary JAMES J Priscilla Insurance:HUMANA ANDERSONDOB: [facility] [id number] Hospital Number: Repository [id number] Date:7574-22-08UP [address] [address]YG: 01/09/2018 Tertiary NOT GIVENUNK Cheney Insurance:SELF PAY [facility] Hospital Number: Effective Repository Date:2017-12-16 12/12/2017 JAMES J Primary JAMES J Priscilla [id number] CR Insurance:MEDICARE ANDERSONDOB: Community [address] [place], PART A olicy Number: [id number] Hospital [address]Ikp: [id number] Repository Date:2005-11-16 () 12/12/2017 Secondary JAMES J Priscilla Insurance:HUMANA ANDERSONDOB: [facility] [id number] Hospital Number: Repository [id number] Date:3698-84-38QV[address] [address]MI: 12/12/2017 Tertiary NOT GIVENUNK Cheney Insurance:SELF PAY [facility] Hospital Number: Effective Repository Date:2017-11-17 11/07/2017 JAMES J Primary JAMES J Priscilla [id number] CR Insurance:MEDICARE ANDERSONDOB: Community [address] [place], PART A olicy Number: [id number] Hospital [address]Ryl: [id number] Repository Date:2005-11-16 () 11/07/2017 Secondary JAMES J Cheney Insurance:HUMANA ANDERSONDOB: [facility] [id number] Hospital Number: Repository [id number] Date:8029-61-30VP [address] [place] [address]AU: 11/07/2017 Tertiary NOT GIVENUNK Cheney Insurance:SELF PAY [facility] Hospital Number: Effective Repository Date:2017-04-18 11/04/2017 JAMES J Primary JAMES J Priscilla [id number] CR Insurance:MEDICARE ANDERSONDOB: [address] [place], PART A BPolicy Number: [id number] Hospital [address]Mkg: [id number] Repository Date:2017-11-04 () 11/04/2017 Secondary JAMES J Cheney Insurance:HUMANA ANDERSONDOB: [facility] [id number] Hospital Number: Repository [id number] Date:9700-63-69QI [address] [place] [address]YT: 11/04/2017 Tertiary NOT GIVENUNK Cheney Insurance:SELF PAY [facility] Number: Effective Repository Date:2017-11-04 11/03/2017 JAMES J Primary JAMES J Priscilla [id number] CR Insurance:MEDICARE ANDERSONDOB: [address] [place], PART A BPolicy Number: [id number] Hospital [address]Ojt: [id number] Repository Date:2017-08-04 () 11/03/2017 Secondary JAMES J Cheney Insurance:HUMANA ANDERSONDOB: [facility] [id number] Hospital Number: Repository [id number] Date:3764-29-42WF [address] [place] [address]DT: 11/03/2017 Tertiary NOT GIVENUNK Priscilla Insurance:SELF PAY [facility] Number: Effective Repository Date:2017-08-04 10/16/2017 JAMES J Primary JAMES J Cheney [id number] CR Insurance:MEDICARE ANDERSONDOB: Community [facility] o[facility]y Number: [id number] Hospital [address]Iji: [id number] Repository Date:2017-09-19 () 10/16/2017 Secondary JAMES J Priscilla Insurance:HUMANA ANDERSONDOB: [facility] [id number] Hospital Number: Repository [id number] Date:6621-87-04XO [address] [address]YK: 10/16/2017 Tertiary NOT GIVENUNK Cheney Insurance:SELF PAY [facility] Number: Effective Repository Date:2017-10-15 10/09/2017 JAMES J Primary JAMES J Cheney [id number] CR Insurance:MEDICARE ANDERSONDOB: [address] [facility] Number: [id number] Hospital 48[address]Rbd: [id number] Repository Date:2017-09-25 () 10/09/2017 Secondary JAMES J Priscilla Insurance:HUMANA ANDERSONDOB: [facility] [id number] Hospital Number: Repository [id number] Date:0925-82-46TW [address] [address]QP: 10/09/2017 Tertiary NOT GIVENUNK Cheney Insurance:SELF PAY [facility] Number: Effective Repository Date:2017-09-25 10/08/2017 JAMES J Primary JAMES J Priscilla [id number] CR Insurance:MEDICARE ANDERSONDOB: Community [address] [place], PART A olicy Number: [id number] Hospital [address]Gqf: [id number] Repository Date:2017-09-19 () 10/08/2017 Secondary JAMES J Cheney Insurance:HUMANA ANDERSONDOB: Community COMMERCIALPolicy [id number] Hospital Number: Repository [id number] Date:8201-23-82PH[address] [address]FD: 10/08/2017 Tertiary NOT GIVENUNK Cheney Insurance:SELF PAY [facility] Number: Effective Repository Date:2017-09-19 09/11/2017 JAMES J Primary JAMES J Priscilla [id number] CR Insurance:MEDICARE ANDERSONDOB: Community [address] [place], PART A BPolicy Number: [id number] Hospital [address]Pga: [id number] Repository Date:2017-09-11 () 09/11/2017 Secondary JAMES J Cheney Insurance:HUMANA ANDERSONDOB: [facility] [id number] Hospital Number: Repository [id number] Date:8066-19-92IO[address] [address]EP: 09/11/2017 Tertiary NOT GIVENUNK Cheney Insurance:SELF PAY [facility] Number: Effective Repository Date:2017-09-11 09/10/2017 JAMES J Primary JAMES J Cheney [id number] CR Insurance:MEDICARE ANDERSONDOB: Community [address] [place], PART A BPolicy Number: [id number] Hospital [address]Srf: [id number] Repository Date:2017-09-10 () 09/10/2017 Secondary JAMES J Priscilla Insurance:HUMANA ANDERSONDOB: [facility] [id number] Hospital Number: Repository [id number] Date:7030-30-49SH[address] [address]HE: 09/10/2017 Tertiary NOT GIVENUNK Cheney Insurance:SELF PAY [facility] Number: Effective Repository Date:2017-09-10 09/10/2017 JAMES J Primary JAMES J Priscilla [id number] CR Insurance:MEDICARE ANDERSONDOB: Community [address] [place], PART A BPolicy Number: [id number] Hospital [address]Mwv: [id number] Repository Date:2017-09-10 () 09/10/2017 Secondary JAMES J Priscilla Insurance:HUMANA ANDERSONDOB: [facility] COMMERCIALPolicy [id number] Hospital Number: Repository [id number] Date:5572-60-94DE [address] [address]MN: 09/10/2017 Tertiary NOT GIVENUNK Cheney Insurance:SELF PAY [facility] Hospital Number: Effective Repository Date:2017-09-10 08/29/2017 JAMES J Primary JAMES J Priscilla [id number] CR Insurance:MEDICARE ANDERSONDOB: [address] BPolicy Number: [id number] Hospital [address]Aro: [id number] Repository Date:2005-11-16 () 08/29/2017 Secondary JAMES J Cheney Insurance:HUMANA ANDERSONDOB: [facility] [id number] Hospital Number: Repository [id number] Date:7853-19-66YO[address] [address]ZG: 08/29/2017 Tertiary NOT GIVENUNK Priscilla Insurance:SELF PAY [facility] Hospital Number: Effective Repository Date:2017-08-18 08/15/2017 JAMES J Primary JAMES J Priscilla [id number] CR Insurance:MEDICARE ANDERSONDOB: [address] BPolicy Number: [id number] Hospital [address]Lvf: [id number] Repository Date:2005-11-16 () 08/15/2017 Secondary JAMES J Cheney Insurance:HUMANA ANDERSONDOB: [facility] COMMERCIALPolicy [id number] Hospital Number: Repository [id number] Date:7980-55-79FU[address] [address]FX: 08/15/2017 Tertiary NOT GIVENUNK Priscilla Insurance:SELF PAY [facility] Number: Effective Repository Date:2017-07-20 08/04/2017 JAMES J Primary JAMES J Cheney [id number] CR Insurance:MEDICARE ANDERSONDOB: Community [address] [place], PART A BPolicy Number: [id number] Hospital 85861Zpw: [id number] Repository Date:2017-07-19 () 08/04/2017 Secondary JAMES J Cheney Insurance:HUMANA ANDERSONDOB: [facility] [id number] Hospital Number: Repository [id number] Date:6794-61-23WZ [address] [address]NU: 08/04/2017 Tertiary NOT GIVENUNK Cheney Insurance:SELF PAY [facility] Hospital Number: Effective Repository Date:2017-07-19 08/01/2017 JAMES J Primary JAMES J Cheney [id number] CR Insurance:MEDICARE ANDERSONDOB: Community [address] [place], PART A BPolicy Number: [id number] Hospital [address]Hsj: [id number] Repository Date:2017-08-01 () 08/01/2017 Secondary JAMES J Priscilla Insurance:HUMANA ANDERSONDOB: [facility] [id number] Hospital Number: Repository [id number] Date:9550-96-56KS [address] [address]DO: 08/01/2017 Tertiary NOT GIVENUNK Cheney Insurance:SELF PAY [facility] Hospital Number: Effective Repository Date:2017-08-01
== END ==
PROVIDERS: Family Provider Family Medicine Geriatric Medicine; PCP Family Medicine Geriatric Medicine; Visit Provider Family Medicine Geriatric Medicine
DX: I50.23 Acute on chronic systolic (congestive) heart failure (principal)
CPT/HCPCS: 36415; 80048; 85025

== ENCOUNTER → 2018-07-29 15:22 | Outpatient (CLI) | payer MEDICARE, OTHER, SELFPAY ==
[2018-07-29 16:13] LABS: Anion Gap 5 (5-15); BUN 43 mg/dL (7-18); BUN/Creat Ratio 43.7 RATIO (10-20); Chloride 101 mmol/L (98-107); Creatinine, Serum 0.98 mg/dL (0.55-1.02); EST Glomerular Filtration Rate 58 mL/min (>60); Est Glom Filt Rate - Afr Amer 70 mL/min (>60); Glucose 127 mg/dL (74-106); Potassium 4.6 mmol/L (3.5-5.1); Sodium Level 138 mmol/L (136-145)
--- OUTSIDE RECORDS SUMMARY | 2018-09-14 20:55 | XMS RPT_ITS ---
:1940 Author Organization [place] Support Name Relationship Address Phone FRANCY BURK Unavailable [address] + [place] [address] R Unavailable Unavailable Unavailable RYNE, PAT Unavailable [address] + [place] [address] FRANCY BURK Unavailable [address] + [place] [address] R Unavailable Unavailable Unavailable RYNE, PAT Unavailable [address] + [place] [address] FRANCY BURK Unavailable [address] + [place] [address] R Unavailable Unavailable Unavailable RYNE, PAT Unavailable [address] + [place] [address] FRANCY BURK Unavailable [address] + [place] [address] R Unavailable Unavailable Unavailable RYNE, PAT Unavailable [address] + [place] [address] FRANCY BURK Unavailable [address] + [place] [address] R Unavailable Unavailable Unavailable RYNE, PAT Unavailable [address] + [place] [address] FRANCY BURK Unavailable [address] + [place] [address] R Unavailable Unavailable Unavailable RYNE, PAT Unavailable [address] + [place] [address] FRANCY BURK Unavailable [address] + [place] [address] R Unavailable Unavailable Unavailable RYNE, PAT Unavailable [address] + [place] [address] FRANCY BURK Unavailable [address] + [place] [address] R Unavailable Unavailable Unavailable RYNE, PAT Unavailable [address] + [place] [address] BHARGAVI FRANCY Unavailable [address] + [place] [address] R Unavailable Unavailable Unavailable RYNE, PAT Unavailable [address] + [place] [address] FRANCY BURK Unavailable [address] + [place] [address] R Unavailable Unavailable Unavailable RYNE, PAT Unavailable [address] + [place] [address] BHARGAVI FRANCY Unavailable [address] + [place] [address] R Unavailable Unavailable Unavailable RYNE, PAT Unavailable [address] + [place] [address] FRANCY BURK Unavailable [address] + [place] [address] R Unavailable Unavailable Unavailable RYNE, PAT Unavailable [address] + [place] [address] FRANCY BURK Unavailable [address] + [place] [address] R Unavailable Unavailable Unavailable RYNE, PAT Unavailable [address] + [place] [address] FRANCY BURK Unavailable [address] + [place] [address] R Unavailable Unavailable Unavailable RYNE, PAT Unavailable [address] + [place] [address] FRANCY BURK Unavailable [address] + [place] [address] R Unavailable Unavailable Unavailable RYNE, PAT Unavailable [address] + [place] [address] FRANCY BURK Unavailable [address] + [place] [address] R Unavailable Unavailable Unavailable RYNE, PAT Unavailable [address] + [place] [address] FRANCY BURK Unavailable [address] + [place] [address] R Unavailable Unavailable Unavailable RYNE, PAT Unavailable [address] + [place] [address] BHARGAVI FRANCY Unavailable [address] + [place] [address] R Unavailable Unavailable Unavailable RYNE, PAT Unavailable [address] + [place] [address] BHARGAVI FRANCY Unavailable [address] + [place] [address] R Unavailable Unavailable Unavailable RYNE, PAT Unavailable [address] + [place] [address] BHARGAVI FRANCY Unavailable [address] + [place] [address] R Unavailable Unavailable Unavailable RYNE, PAT Unavailable [address] + [place] [address] BHARGAVI FRANCY Unavailable [address] + [place] [address] R Unavailable Unavailable Unavailable RYNE, PAT Unavailable [address] + [place] [address] R Unavailable Unavailable Unavailable RYNE, PAT Unavailable [address] + [place] [address] R Unavailable Unavailable Unavailable R Unavailable Unavailable Unavailable RYNE, PAT Unavailable [address] + [place] [address] R Unavailable Unavailable Unavailable R Unavailable Unavailable Unavailable RYNE, PAT Unavailable [address] + [place] [address] BHARGAVI FRANCY Unavailable [address] + [place] [address] R Unavailable Unavailable Unavailable RYNE, PAT Unavailable [address] + [place] [address] BHARGAVI FRANCY Unavailable [address] + [place] [address] R Unavailable Unavailable Unavailable RYNE, PAT Unavailable [address] + [place] [address] BHARGAVI FRANCY Unavailable [address] + [place] [address] R Unavailable Unavailable Unavailable RYNE, PAT Unavailable [address] + [place] [address] FRANCY BURK Unavailable [address] + [facility] [place] [address] R Unavailable Unavailable Unavailable RYNE, PAT Unavailable [address] + [place] [address] FRANCY BURK Unavailable [address] + [facility] [place] [address] R Unavailable Unavailable Unavailable RYNE, PAT Unavailable [address] + [place] [address] FRANCY BURK Unavailable [address] + [place] [address] R Unavailable Unavailable Unavailable RYNE, PAT Unavailable [address] + [place] [address] FRANCY BURK Unavailable [address] + [place] [address] R Unavailable Unavailable Unavailable RYNE, PAT Unavailable [address] + [place] [address] FRANCY BURK Unavailable [address] [facility] [address] + [place] [address] R Unavailable Unavailable Unavailable RYNE, PAT Unavailable [address] + [facility] [place] [place] [address] FRANCY BURK Unavailable [address] [place] [address] [address] + [place] [address] R Unavailable Unavailable Unavailable RYNE, PAT Unavailable [address] + [facility] [place] [address] FRANCY BURK Unavailable [address] [place] [address] [address] + [place] [address] R Unavailable Unavailable Unavailable RYNE, PAT Unavailable [address] + [place] [address] BHARGAVI FRANCY Unavailable [address] [facility] [address] + [place] [address] R Unavailable Unavailable Unavailable RYNE, PAT Unavailable [address] + [place] [address] FRANCY BURK Unavailable [address] [place] [address] [address] + [place] [address] R Unavailable Unavailable Unavailable RYNE, PAT Unavailable [address] + [place] [address] FRANCY BURK Unavailable [address] [facility] [address] + [place] [address] R Unavailable Unavailable Unavailable RYNE, PAT Unavailable [address] + [place] [address] FRANCY BURK Unavailable [address] [facility] [address] + [place] [address] R Unavailable Unavailable Unavailable RYNE, PAT Unavailable [address] + [place] [address] Care Team Providers Name Role Artemio Leyva Attending Unavailable Tigre, Romie Chi Referring Unavailable [...] Unavailable Tigre, Romie Chi Primary Care Unavailable MoodJohn barker Referring Unavailable Tigre, Romie [...] Unavailable Tigre, Romie Chi Primary Care Unavailable Vellanki, Brittney Attending Unavailable Tigre, Romie Chi Primary Care Unavailable John Hayden Attending Unavailable Fernandoki, Brittney Referring Unavailable Tigre, Romie Chi Primary Care Unavailable John Hayden Attending Unavailable Tigre, Romie Chi Primary Care Unavailable MoodJohn barker Referring Unavailable Tigre, Romie Chi Primary Care Unavailable AgyepongWilliams Admitting Unavailable Wilda Eugene Attending Unavailable John Hayden Consulting Unavailable AgyepongWilliams Admitting Unavailable AgyepongWilliams Attending Unavailable Tigre, Romie Chi Primary Care Unavailable WhiteWilda Consulting Unavailable AgyepongWilliams Admitting Unavailable MoodisJohn aguilar Attending Unavailable Tigre, Romie Chi Primary Care Unavailable John Hayden Consulting Unavailable Wilda Eugene Consulting Unavailable John Hayden Attending Unavailable MoodJohn barker Referring Unavailable Tigre, Romie Chi Primary Care Unavailable Tigre, Romie Chi Attending Unavailable Tigre, Romie Chi Primary Care Unavailable Shantal Peres Attending Unavailable Tigre, Romie Chi Referring Unavailable John Hayden Attending Unavailable MoodinderjitpaJohn mccain Referring Unavailable Tigre, Romie Chi Primary Care [...] Primary Care Unavailable John Hayden Attending Unavailable MoodispaJohn mccain Referring Unavailable Tigre, Romie Chi Primary Care Unavailable MoodJohn barker Attending Unavailable Vellanki, Brittney Referring Unavailable Tigre, Romie Chi Primary Care Unavailable PROBLEMS PROBLEMS DATE TYPE CONDITION / CODE ATTENDING STATUS SOURCE 09/02/2018 Unknown I48.91 - Unspecified John Hayden atrial fibrillation / Community I48.91(ICD-10) Hospital Repository 08/17/2018 Unknown Z79.01 - skilled nursing John Hayden (current) use of Community anticoagulants / Hospital Z79.01(ICD-10) Repository 08/03/2018 Unknown I50.22 - Chronic Artemio Herrera Active [place] systolic (congestive) Community heart failure / Hospital I50.22(ICD-10) Repository 08/03/2018 Unknown 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 / Z95.2(ICD-10) Hospital Repository 07/14/2018 Unknown I50.23 - Acute on Tigre, Romie Chi Active [place] chronic systolic Community (congestive) heart Hospital failure / Repository I50.23(ICD-10) 05/26/2018 Unknown I50.9 - Heart Tigre, Romie Chi Active [place] failure, unspecified Community / I50.9(ICD-10) Hospital Repository 05/26/2018 Unknown R06.02 - Shortness of Tirge, Romie Chi Active [place] [facility] breath / Community R06.02(ICD-10) Hospital Repository 05/26/2018 Unknown R11.0 - Nausea / Tigre, Romie Chi Active [place] R11.0(ICD-10) Community Hospital Repository 02/13/2018 Unknown Z79.899 - Other long Brittney Owens Active [place] term (current) drug Community therapy / Hospital Z79.899(ICD-10) Repository 02/13/2018 Unknown 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 / Community M06.4(ICD-10) Hospital Repository 02/13/2018 Unknown M79.7 - Fibromyalgia Brittney Owens Active [place] [facility] / M79.7(ICD-10) Community Hospital Repository 12/16/2017 Unknown I48.0 - Paroxysmal Moodispaw, John Active [facility] atrial fibrillation / Community I48.0(ICD-10) Hospital Repository 11/04/2017 Unknown I10 - Essential Tigre, Romie Chi Active [place] (primary) Community hypertension / Hospital I10(ICD-10) Repository 11/04/2017 Unknown E55.9 - Vitamin D Tigre, Romie Chi Active [place] deficiency, Community unspecified / Hospital E55.9(ICD-10) Repository 10/08/2017 Unknown D64.9 - Anemia, Tigre, Romie Chi Active [place] unspecified / Community D64.9(ICD-10) Hospital Repository 10/15/2017 Unknown E87.1 - Tigre, Romie Chi Active [facility] Hypo-osmolality and Community hyponatremia / Hospital E87.1(ICD-10) Repository 09/10/2017 Unknown N39.0 - Urinary tract Tigre, Romie Chi Active [place] infection, site not Community specified / Hospital N39.0(ICD-10) Repository PROCEDURES PROCEDURES No Procedure Records FoundRESULTS RESULTS PROTIME W/INR Collected: 09/02/2018 Status: F Source: PRIS[place]LLA FINGERSTICK 1:44 PM [facility] REPOSITORY TYPE CODE TESTS RESULT OUT OF REFERENCE UNITS RANGE LAB L9200.1001 11.9-14.4 SEC High PROTIME ISTAT 31.1 Result Comment: Reference Range 11.9 - 14.4 LAB L9200.2000 Normal INR ISTAT 2.70 Result Comment: Critical Value > 3.5 Performed By: #### L9200.0000 #### [facility] Point of Care [address] [place] [address] PACEMAKER CHECK Observed: 08/26/2018 Status: F Source: [place] 6:37 PM [facility] REPOSITORY [facility] [address] [place] [address] Pacemaker Check Date of Service: 08/26/181808 MR#: [id number] Acct: [id number] Name: JAMES BURK Rep #: [id number] : 1940 From: Shantal Peres Age/Sex: 77/F [place] [facility] Status: Signed Billing Codes ICD Device Billing: ICD Dev Interrogate (Rmt) 08/26/181809 <Electronically signed by Shantal Peres > Date Shantal Peres 08/26/181836<Electronically signed by John Hayden MD> Birgit Signature: Date (if applicable) John Hayden MD CC: PROTIME W/INR Collected: 08/21/2018 Status: F Source: [place] FINGERSTICK 2:03 PM [facility] REPOSITORY TYPE CODE TESTS RESULT OUT OF REFERENCE UNITS RANGE LAB L9200.1001 11.9-14.4 SEC High PROTIME ISTAT 29.6 Result Comment: Reference Range 11.9 - 14.4 LAB L9200.2000 Normal INR ISTAT 2.60 Result Comment: Critical Value > 3.5 Performed By: #### L9200.0000 #### [facility] Point of Care [address] [place] [address] PROTIME W/INR Collected: 08/14/2018 Status: F Source: [place] FINGERSTICK 2:19 PM [facility] REPOSITORY TYPE CODE TESTS RESULT OUT OF REFERENCE UNITS RANGE LAB L9200.1001 11.9-14.4 SEC High PROTIME ISTAT 24.6 Result Comment: Reference Range 11.9 - 14.4 LAB L9200.2000 Normal INR ISTAT 2.10 Result Comment: Critical Value > 3.5 Performed By: #### L9200.0000 #### [facility] Point of Care [address] [place] [address] PROTIME W/INR Collected: 08/06/2018 Status: F Source: [place]A FINGERSTICK 2:11 PM [facility] REPOSITORY TYPE CODE TESTS RESULT OUT OF REFERENCE UNITS RANGE LAB L9200.1001 11.9-14.4 SEC High PROTIME ISTAT 37.0 Result Comment: Reference Range 11.9 - 14.4 LAB L9200.2000 Normal INR ISTAT 3.30 Result Comment: Critical Value > 3.5 Performed By: #### L9200.0000 #### [facility] Point of Care [address] [place], [place] [address] CARDIOLOGY VISIT Observed: 08/04/2018 Status: F Source: PRIS[place]LLA REPORT 7:14 AM [facility] REPOSITORY [facility] [address] [place] [address] OFFICE VISIT Date of Service: 08/03/18 MR#: [id number] Acct: [id number] Name: JAMES BURK Rep #: [id number] : 1940 Provider: REYNOLD Herrera Age/Sex: 77/F Location: 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 She will continue with current beta-dave. 4. 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) Coding Level of Care Code Off vis,est,level [...] <Electronically signed by Artemio BAE> Date Artemio Herrera NP-C Cosigner Signature: Date (if applicable) CC: Romie Landeros MD PROTIME W/INR Collected: 08/03/2018 Status: F Source: [place]A FINGERSTICK 3:55 PM [facility] REPOSITORY TYPE CODE TESTS RESULT OUT OF REFERENCE UNITS RANGE LAB L9200.1001 11.9-14.4 SEC High PROTIME ISTAT 22.2 Result Comment: Reference Range 11.9 - 14.4 LAB L9200.2000 Normal INR ISTAT 1.90 Result Comment: Critical Value > 3.5 Performed By: #### L9200.0000 #### [facility] Point of Care [address] [place], [place] [address] BASIC METABOLIC Collected: 07/29/2018 Status: F Source: PR[place] PROFILE (BMP) 3:24 PM [facility] REPOSITORY TYPE CODE TESTS RESULT OUT OF [...] GAP 5 Performed By: #### L500.2500 #### [facility] [address] [facility] [place], [address] PROTIME W/INR Collected: 07/20/2018 Status: F Source: [place]A FINGERSTICK 3:20 PM [facility] REPOSITORY TYPE CODE TESTS RESULT OUT OF REFERENCE UNITS RANGE LAB L9200.1001 11.9-14.4 SEC High PROTIME ISTAT 28.2 Result Comment: Reference Range 11.9 - 14.4 LAB L9200.2000 Normal INR ISTAT 2.50 Result Comment: Critical Value > 3.5 Performed By: #### L9200.0000 #### [facility] Point of Care [address] [facility] [place], [place] [address] BASIC METABOLIC Collected: 07/14/2018 Status: F Source: PRIS[place]LLA PROFILE (BMP) 3:12 PM [facility] REPOSITORY TYPE CODE TESTS RESULT OUT OF [...] GAP 8 Performed By: #### L500.2500 #### [facility] [address] [place], [address] CBC W/DIFF, AUTOMATED Collected: 07/14/2018 Status: F Source: [place] 3:12 PM [facility] REPOSITORY TYPE CODE TESTS RESULT OUT OF [...] Lymph 0.93 Performed By: #### L100.0100 #### [facility] [address] [place], [address] PROTIME W/INR Collected: 07/06/2018 Status: F Source: [place]LLA FINGERSTICK 1:29 PM [facility] REPOSITORY TYPE CODE TESTS RESULT OUT OF REFERENCE UNITS RANGE LAB L9200.1001 11.9-14.4 SEC High PROTIME ISTAT 22.7 Result Comment: Reference Range 11.9 - 14.4 LAB L9200.2000 Normal INR ISTAT 2.00 Result Comment: Critical Value > 3.5 Performed By: #### L9200.0000 #### [facility] Point of Care [address] [facility] [place], [place] [address] BASIC METABOLIC Collected: 06/30/2018 Status: F Source: PRIS[place]LLA PROFILE (BMP) 1:53 PM [facility] REPOSITORY TYPE CODE TESTS RESULT OUT OF [...] GAP 4 Performed By: #### L500.2500 #### [facility] [address] [place], [address] CBC W/DIFF, AUTOMATED Collected: 06/30/2018 Status: F Source: [place] 1:53 PM [facility] REPOSITORY TYPE CODE TESTS RESULT OUT OF [...] Lymph 0.72 Performed By: #### L100.0100 #### [facility] [address] [place], [place], [address] CBC W/DIFF, AUTOMATED Collected: 06/23/2018 Status: F Source: [place] 1:39 PM [facility] REPOSITORY TYPE CODE TESTS RESULT OUT OF [...] Lymph 0.71 Performed By: #### L100.0100 #### [facility] [address] [place], [address] BASIC METABOLIC Collected: 06/23/2018 Status: F Source: [place] PROFILE (BMP) 1:39 PM [facility] REPOSITORY TYPE CODE TESTS RESULT OUT OF [...] 7 Performed By: #### L500.2500, L501.9520 #### [facility] [address] [place], [address] THYROID STIM HORMONE Collected: 06/23/2018 Status: F Source: [place] (TSH) 1:39 PM [facility] REPOSITORY TYPE CODE TESTS RESULT OUT OF RANGE REFERENCE UNITS LAB L501.9520 0.358-3.74 uIU/mL Normal TSH 1.39 Performed By: #### L500.2500, L501.9520 #### [facility] [address] [place], [address] PROTIME W/INR Collected: 06/19/2018 Status: F Source: [place]LLA FINGERSTICK 2:27 PM [facility] REPOSITORY TYPE CODE TESTS RESULT OUT OF REFERENCE UNITS RANGE LAB L9200.1001 11.9-14.4 SEC High PROTIME ISTAT 32.5 Result Comment: Reference Range 11.9 - 14.4 LAB L9200.2000 Normal INR ISTAT 2.80 Result Comment: Critical Value > 3.5 Performed By: #### L9200.0000 #### [facility] [place] [address] CBC W/DIFF, AUTOMATED Collected: 06/10/2018 Status: F Source: [place] 3:22 PM [facility] REPOSITORY TYPE CODE TESTS RESULT OUT OF [...] Lymph 0.61 Performed By: #### L100.0100 #### [facility] [address] [facility] [place], [place], [address] BASIC METABOLIC Collected: 06/10/2018 Status: F Source: PR[place]LLA PROFILE (BMP) 3:22 PM [facility] REPOSITORY TYPE CODE TESTS RESULT OUT OF [...] 5 Performed By: #### L500.2500, L501.5200 #### [facility] [address] [facility] [place], [address] MAGNESIUM Collected: 06/10/2018 Status: F Source: [place] 3:22 PM [facility] REPOSITORY TYPE CODE TESTS RESULT OUT OF RANGE REFERENCE UNITS LAB L501.5200 1.6-2.6 mg/dL Normal MG 2.0 Performed By: #### L500.2500, L501.5200 #### [facility] [address] [place], [address] CHEST PA AND LATERAL Observed: 05/26/2018 Status: F Source: [place] 4:01 PM [facility] REPOSITORY [facility] Imaging Services [address] [place] [address] Chest PA and Lateral MR#: [id number] Acct: [id number] Name: JAMES BURK Rep #: [id number] : 1940 F 77 From: Renzo Max MD PCP: Tigre WEAVER,Romie Carballo Status: REG CLI Study: Chest PA and Lateral Date of Exam: 05/26/18 Exam# [id number] Ordering Dr: Romie Landeros MD STUDY: X-RAY [...] Service support , CC: Romie Landeros MD Diabetologist: Signed ABDOMEN SINGLE VIEW Observed: 05/26/2018 Status: F Source: [place] 4:01 PM [facility] REPOSITORY [facility] Imaging Services [address] [place] [address] Abdomen Single View MR#: [id number] Acct: [id number] Name: JAMES BURK Rep #: [id number] : 1940 F 77 From: Renzo Max MD PCP: Romie Landeros MD, Chi Status: REG CLI Study: Abdomen Single View Date of Exam: 05/26/18 Exam# [id number] Ordering Dr: Romie Landeros MD STUDY: X-RAY [...] Service support , CC: Romie Landeros MD Diabetologist: Signed CBC W/DIFF, AUTOMATED Collected: 05/26/2018 Status: F Source: [place] 3:34 PM [facility] REPOSITORY TYPE CODE TESTS RESULT OUT OF [...] Lymph 0.64 Performed By: #### L100.0100 #### [facility] [address] [place], [place], [address] D-DIMER QUANTITATIVE Collected: 05/26/2018 Status: F Source: [place] (DVT/PE) 3:34 PM [facility] REPOSITORY TYPE CODE TESTS RESULT OUT OF RANGE REFERENCE UNITS LAB L300.8000 0.27-0.49 FEU/ug/m Low D-DIMER < 0.27 QUANT Result Comment: NORMAL D-Dimer level (<0.50) indicates no DVT or PE. Performed By: #### L300.8000 #### [facility] [address] [place], [place], [address] COMPREHENSIVE METABOLIC Collected: 05/26/2018 Status: F Source: [place] LUNDY 3:34 PM [facility] REPOSITORY TYPE CODE TESTS RESULT OUT OF [...] 7 Performed By: #### L500.4050, L501.9520 #### [facility] [address] [place], [address] THYROID STIM HORMONE Collected: 05/26/2018 Status: F Source: [place] (TSH) 3:34 PM [facility] REPOSITORY TYPE CODE TESTS RESULT OUT OF RANGE REFERENCE UNITS LAB L501.9520 0.358-3.74 uIU/mL High TSH 5.87 Performed By: #### L500.4050, L501.9520 #### [facility] [address] [place], [address] BNP,B-TYPE NATRIURETIC Collected: 05/26/2018 Status: F Source: [place] PEPTIDE 3:34 PM [facility] REPOSITORY TYPE CODE TESTS RESULT OUT OF RANGE REFERENCE UNITS LAB L503.6620 0-100 pg/mL High B-TYPE 1337.8 SAMANTHA PEP Performed By: #### L503.6620 #### [facility] [address] [facility] [place], [address] Observed: 05/26/2018 Status: F Source: [place] CULTURE, URINE 3:34 PM [facility] REPOSITORY Urine Culture Below infection level. ORGANISM 1: GPC Poss Enterococcus sp Innis Count 1000-10,000 ORGANISM 2: Mixed Gram Positive Organisms Innis Count 1000-10,000 MIX CULTURE Mixed contaminants. Submit a new specimen if indicated. Performed By: #### M100.0650 #### [facility] [address] [place], [address] PROTIME W/INR Collected: 05/15/2018 Status: F Source: [place]LLA FINGERSTICK 2:46 PM [facility] REPOSITORY TYPE CODE TESTS RESULT OUT OF REFERENCE UNITS RANGE LAB L9200.1001 11.9-14.4 SEC High PROTIME ISTAT 38.1 Result Comment: Reference Range 11.9 - 14.4 LAB L9200.2000 Normal INR ISTAT 3.40 Result Comment: Critical Value > 3.5 Performed By: #### L9200.0000 #### [facility] Point of Care [address] [place] [place] [address] PACEMAKER CHECK Observed: 05/13/2018 Status: F Source: [place] 6:07 PM [facility] REPOSITORY [facility] [facility] [address] [place] [address] Pacemaker Check Date of Service: 05/13/18 1431 MR#: [id number] Acct: [id number] Name: JAMES BURK Rep #: [id number] : 1940 From: Shatnal Peres Age/Sex: 77/F Location[place] [facility] Status: Signed Billing Codes ICD Device Billing: ICD Dev Interrogate (Rmt) 05/13/18 1432 <Electronically signed by Shantal Peres > Date Shantal Peres 05/13/18 180<Electronically signed by John Hayden MD> Cosigner Signature: Date (if applicable) John Hayden MD CC: CBC W/DIFF, AUTOMATED Collected: 05/08/2018 Status: F Source: [place] 10:38 AM [facility] REPOSITORY TYPE CODE TESTS RESULT OUT OF [...] Lymph 0.66 Performed By: #### L100.0100 #### [facility] [address] [facility] [place], [place], [address] VITAMIN D,25 HYDROXY Collected: 05/08/2018 Status: F Source: [place] 10:38 [facility] REPOSITORY TYPE CODE TESTS RESULT OUT OF RANGE REFERENCE UNITS LAB L506.1000 29.95-100.01 ng/mL Normal Vitamin D 68.3 25-OH Result Comment: Vitamin D 25(OH) Status Range Deficiency <20 ng/mL (50nmol/L) Insuffciency 20 - 30 ng/mL (50 - 75 nmol/L) Sufficiency 30 - 100 ng/mL (75 - 250 nmol/L) Toxicity >100 ng/mL (>250 nmol/L) Performed By: #### L506.1000 #### [facility] [address] [facility] [place], [place], [address] COMPREHENSIVE METABOLIC Collected: 05/08/2018 Status: F Source: [facility] 10:38 [facility] REPOSITORY TYPE CODE TESTS RESULT OUT [...] 10 Performed By: #### L500.4050, L501.9520 #### [facility] [address] [place], [place], [id number] THYROID STIM HORMONE Collected: 05/08/2018 Status: F Source: [place] (TSH) 10:38 AM [facility] REPOSITORY TYPE CODE TESTS RESULT OUT OF RANGE REFERENCE UNITS LAB L501.9520 0.358-3.74 uIU/mL High TSH 3.95 Performed By: #### L500.4050, L501.9520 #### [facility] [address] [place], [address] PROTIME W/INR Collected: 04/29/2018 Status: F Source: [place] FINGERSTICK 2:48 PM [facility] REPOSITORY TYPE CODE TESTS RESULT OUT OF REFERENCE UNITS RANGE LAB L9200.1001 11.9-14.4 SEC High PROTIME ISTAT 26.6 Result Comment: Reference Range 11.9 - 14.4 LAB L9200.2000 Normal INR ISTAT 2.30 Result Comment: Critical Value > 3.5 Performed By: #### L9200.0000 #### [facility] Point of Care [address] [place] [address] PROTHROMBIN TIME W/INR Collected: 04/27/2018 Status: F Source: [place] 3:14 PM [facility] REPOSITORY Order Comment: Result obtained is for confirmation testing of Fingerstick PT/INR Specimen # [id number] . 04/27/18 1515 CDOTTERER2 THIS CONFIRMATION SPECIMEN RESULT IS FROM VENOUS BLOOD. TYPE CODE TESTS RESULT OUT OF REFERENCE UNITS RANGE LAB L300.4150 11.7-14.9 SECONDS High PROTIME 47.3 LAB L300.4200 High alert INR 5.1 Result Comment: CRITICAL VALUE VERIFIED. CALLED TO CHIO AT [facility] 04/27/18 Omar Rodríguez. RESULTS READ BACK BY SAME . Performed By: #### L300.3900 #### [facility] [address] [place], [address] PROTIME W/INR Collected: 04/27/2018 Status: F Source: [place] FINGERSTICK 2:55 PM [facility] REPOSITORY TYPE CODE TESTS RESULT OUT OF REFERENCE UNITS RANGE LAB L9200.1001 11.9-14.4 SEC High PROTIME ISTAT 66.8 Result Comment: Reference Range 11.9 - 14.4 LAB L9200.2000 High alert INR ISTAT > 6.00 Result Comment: Critical Value > 3.5 Performed By: #### L9200.0000 #### [facility] Point of Care [address] [place] [address] PROTIME W/INR Collected: 04/06/2018 Status: F Source: [place] FINGER[place]ICK 2:33 PM [facility] REPOSITORY TYPE CODE TESTS RESULT OUT OF REFERENCE UNITS RANGE LAB L9200.1001 11.9-14.4 SEC High PROTIME ISTAT 25.1 Result Comment: Reference Range 11.9 - 14.4 LAB L9200.2000 Normal INR ISTAT 2.20 Result Comment: Critical Value > 3.5 Performed By: #### L9200.0000 #### [facility] [place] [address] 12 LEAD ELECTROCARDIOGRAM Observed: 04/03/2018 Status: F Source: [place] 1:51 PM [facility] REPOSITORY [facility] Cardiovascular [place] [address] [place] [address] 12 Lead EKG 04/02/18 0010 MR#: [id number] Acct: [id number] Name: JAMES BURK Rep #: [id number] : 1940 77 From: Rohan Whitehead MD Attending Dr: Wilda Eugene Status: DIS NICK Ordering Dr: Rd Caceres MD Date: 04/02/18 Location: [facility] Sex: F C Admitted: 04/02/18 Test Reason : CP Blood Pressure : / mmHG Vent. Rate : 085 BPM Atrial Rate : 102 BPM P-R Int : 000 ms QRS Dur : 170 ms QT Int : 436 ms P-R-T Axes : 000 -73 102 degrees QTc Int : 518 ms Ventricular-paced rhythm Abnormal ECG Confirmed by ROHAN WHITEHEAD MD ([id number]), material expeditor ERIBERTO JIMENEZ ([id number]) on 04/03/2018 1:50:29 PM Referred By: MYRNA Confirmed By:ROHAN WHITEHEAD MD 04/03/18 1350 Date Rohan Whitehead MD CC: Wilda Eugene; Rd Caceres MD; Romie Landeros MD Signed DISCHARGE SUMMARY Observed: 04/02/2018 Status: F Source: [place] 1:59 PM [facility] REPOSITORY [facility] Medical Records Department [address] [place] [address] Discharge Summary 04/02/18 1346 MR#: [id number] Acct: [id number] Name: JAMES BURK Rep #: [id number] : 1940 77 From: Jennifer Bruce INDUSTRIAL GAS FITTER HELPER-C PCP: Tigre WEAVER,Romie Carballo Status: ADM NICK Y Location: [place] [address] ADDENDUM by Wilda Eugene on 04/02/18 at [...] Anxiety who presents who presents to the [facility] ED on 04/12/18 w/ history of aggressively [...] discharge summary above. OBSV E AND M: 00737 Observ/hosp same date L3 04/02/18 2939 <Electronically signed by Wilda Eugene > Date Wilda Eugene: CATALINO Bruce; Wilda Eugene; Romie Landeros MD [...] 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) intermission coordinator current use of 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) Anxiety states [...] regimen. 8. Hyperlipidemia-continue statin. 9. Hypothyroidism-continue home [place] Thyroid regimen. 10. Type 2 diabetes mellitus-most [...] to take at Discharge Carvedilol [Coreg (Beta Dave)] 25 mg PO BID 03/28/15 Furosemide [Lasix] [...] With: John Hayden MD - May see INDUSTRIAL GAS FITTER HELPER/PA When: 1-2 Weeks Disposition: Home Minutes spent on discharge:: 35 Patient Condition:: Stable Medical Necessity - Tobacco Use Smoking Status: Former smoker Tobacco Use: Non-smoker Meaningful Use Info Meaningful Use Diagnoses (Choose all that apply): None applicable 04/02/18 6769 <Electronically signed by Jennifer Bruce INDUSTRIAL GAS FITTER HELPER-C> Date Jennifer Bruce CATALINO 04/02/18 7361<Electronically signed by Wilda Eugene > Cosigner Signature (if applicable): Date Wilda Eugene CC: CATALINO Bruce; Wilda Eugene; Romie Landeros MD Signed DISCHARGE INSTRUCTION Observed: 04/02/2018 Status: F Source: [place] 1:47 PM [facility] REPOSITORY [facility] Medical Records Department [address] [facility] [place] [address] Instructions for Home/Discharge Instructions 04/02/18 1344 MR#: [id number] Acct: [id number] Name: JAMES BURK Rep #: [id number] : 1940 77 From: Jennifer BAE PCP: Tigre WEAVER,Romie Carballo Status: ADM NICK - Discharge Diagnoses Current [...] to take at Discharge Carvedilol [Coreg (Beta Dave)] 25 mg PO BID 03/28/15 Furosemide [Lasix] [...] With: John Hayden MD - May see INDUSTRIAL GAS FITTER HELPER/PA When: 1-2 Weeks Proposed Discharge Date: 04/02/18 04/02/18 1347 <Electronically signed by Jennifer Bruce NP-C> Date Jennifer BAE CC: John Hayden MD; Romie Landeros MD CONSULTATION Observed: 04/02/2018 Status: F Source: [place] 1:23 PM [facility] REPOSITORY [facility] Medical Records Department [address] [place] [address] Consultation 04/02/18925 MR#: [id number] Acct: [id number] Name: JAMES BURK Rep #: [id number] : 1940 77 From: John Hayden MD PCP: Romie Landeros MD, Chi Status: ADM NICK Y Location: [place] [address] Problem List (1) Chest pain Status: Acute [...] 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) intermission coordinator current use of 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) Anxiety states [...] to auscultation Cardiovascular: Regular Rhythm, Normal S2, Ray Prosthetic S1 Vascular: No Carotid Bruits Abdomen: [...] gated LVEF of 25% Cardiac Cath: 08/21/2004: [facility]: Elevated left ventricular end-diastolic pressure: Global left [...] PVCs and left ventriculogram Electrophysiology study: 08/22/2004: [facility]: Inducible ventricular tachycardia with poor hemodynamic tolerance ICD: [employer] Energen ICD IS-1/DF-1 model number E143 serial #[id number] implanted on 03/31/2015 as a dual-chamber implantable [...] the patient. This note was generated with [employer] dictation software. It may contain incorrect words, spelling, and punctuation that were not noted in checking the note before signing. 04/02/18 1323 <Electronically signed by John Hayden MD> Date John Hayden MD Cosigner Signature (if applicable): Date CC: John Hayden MD; Romie Landeros MD Signed STRESS REPORT Observed: 04/02/2018 Status: F Source: [place] 12:58 PM [facility] REPOSITORY [facility] Cardiovascular Services [facility] [place] [address] MR#: [id number] Acct: [id number] Name: JAMES BURK Rep #: [id number] : 1940 77 From: John Hayden MD Primary Care: Tigre WEAVER,Romie Carballo Status: ADM NICK Ordering Dr: Sex: F [...] 23 %. This note was generated with Voltaireation software. It may contain incorrect words, spelling, and punctuation that were not noted in checking the note before signing. 04/02/18 1258 <Electronically signed by John Hayden MD> Date John Hayden MD CC: Wilda Eugene; Romie Landeros MD Date Dictated: 04/02/181252 Date Transcribed: 04/02/181252 Diabetologist: PM Signed POTASSIUM Collected: 04/02/2018 Status: F Source: [place] 11:55 AM [facility] REPOSITORY TYPE CODE TESTS RESULT OUT OF RANGE REFERENCE UNITS LAB L501.5600 3.5-5.1 mmol/L Normal K 3.8 Performed By: #### L501.5600 #### [facility] [address] [place], [address] HISTORY AND PHYSICAL Observed: 04/02/2018 Status: F Source: [place] EXAM 7:44 AM [facility] REPOSITORY [facility] Medical Records Department [address] [place] [address] History and Physical 04/02/18 0245 MR#: [id number] Acct: [id number] Name: JAMES BURK Rep #: [id number] : 1940 77 From: Williams Yousif MD PCP: Tigre WEAVER,Romie Carballo Status: ADM NICK Y Location: [place] [address] Problem List (1) Chest pain Status: Acute [...] 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) skilled nursing current use of 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) Anxiety states [...] #27mm 06/1997 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 tachycardia (Chronic) I47.2 skilled nursing current use of 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) Z79.01 Anxiety [...] Spironolactone and Coreg continued as above Hypothyroidism [place] thyroid continued Code Visit Inpatient E AND M: 46272 Init Hosp L3 04/02/18 0744 <Electronically signed by Williams Yousif MD> Date Williams Yousif MD Cosigner Signature: Date (if applicable) CC: Williams Yousif MD; Romie Landeros MD Signed TROPONIN-I Collected: 04/02/2018 Status: F Source: [place] 6:55 AM [facility] REPOSITORY Order Comment: 'TROP' Serial specimen #1, #2 or #3: 3 TYPE CODE TESTS RESULT OUT OF RANGE REFERENCE UNITS LAB L501.4010 <0.045 ng/mL Normal 0.028 TROPONIN-I Result Comment: TROPONIN-I EXPECTED VALUES <0.045 Negative 0.045 - 0.590 Consistent with Cardiac Damage > OR = 0.600 Critical Value Not every elevated troponin is indicative of IN. These values should be used with clinical judgement in examining the patient's clinical picture for diagnosis. To establish a diagnosis of IN versus myocardial injury, there must be a demonstrated rise and/or fall in the troponin values, in addition to ischemic symptoms, EKG changes, new regional wall motion abnormality, and/or angiographical evidence. PLEASE NOTE: REFERENCE RANGES EDITED 17 Performed By: #### L501.4010 #### [facility] [address] [place], [address] EMERGENCY DEPARTMENT Observed: 04/02/2018 Status: F Source: [place] SUMMARY 4:42 AM [facility] REPOSITORY [facility] Medical Records Department [address] [place] [address] Emergency Department Summary 04/02/18 0042 MR#: [id number] Acct: [id number] Name: JAMES BURK Rep #: [id number] : 1940 77 From: Rd Caceres MD PCP: Tigre WEAVER,Romie Carballo Status: ADM NICK - ER Visit Summary [...] the back This note was generated with [employer] dictation software. It may contain incorrect words, [...] problems, contact your Primary Care Provider. Call [facility] ([phone]) or report to the closest Emergency Room. Call 911 if necessary. 04/02/18 0442 <Electronically signed by Rd Caceres MD> Date Rd Caceres MD Cosigner Signature (If Indicated): Date CC: Romie Landeros MD TROPONIN-I Collected: 04/02/2018 Status: F Source: [place] 4:34 AM [facility] REPOSITORY Order Comment: 'TROP' Serial specimen #1, #2 or #3: 2 TYPE CODE TESTS RESULT OUT OF RANGE REFERENCE UNITS LAB L501.4010 <0.045 ng/mL Normal 0.031 TROPONIN-I Result Comment: TROPONIN-I EXPECTED VALUES <0.045 Negative 0.045 - 0.590 Consistent with Cardiac Damage > OR = 0.600 Critical Value Not every elevated troponin is indicative of IN. These values should be used with clinical judgement in examining the patient's clinical picture for diagnosis. To establish a diagnosis of IN versus myocardial injury, there must be a demonstrated rise and/or fall in the troponin values, in addition to ischemic symptoms, EKG changes, new regional wall motion abnormality, and/or angiographical evidence. PLEASE NOTE: REFERENCE RANGES EDITED 17 Performed By: #### L501.4010 #### [facility] [address] [place], [address] BASIC METABOLIC Collected: 04/02/2018 Status: F Source: [place] PROFILE (BMP) 1:10 AM [facility] REPOSITORY Order Comment: REDRAW. PREVIOUS SPECIMEN REJECTED DUE TO Hemolyzed >4+. 04/02/18 0049 [facility]. 'TROP' Serial specimen #1, #2, #3, or [...] 4 Performed By: #### L500.2500, L501.4010 #### [facility] [address] [place], [address] TROPONIN-I Collected: 04/02/2018 Status: F Source: [place] 1:10 AM [facility] REPOSITORY Order Comment: REDRAW. PREVIOUS SPECIMEN REJECTED DUE TO Hemolyzed >4+. 04/02/18 004 Jamilah Barkley. 'TROP' Serial specimen #1, #2, #3, or #4: 1 TYPE CODE TESTS RESULT OUT OF RANGE REFERENCE UNITS LAB L501.4010 <0.045 ng/mL Normal 0.021 TROPONIN-I Result Comment: TROPONIN-I EXPECTED VALUES <0.045 Negative 0.045 - 0.590 Consistent with Cardiac Damage > OR = 0.600 Critical Value Not every elevated troponin is indicative of IN. These values should be used with clinical judgement in examining the patient's clinical picture for diagnosis. To establish a diagnosis of IN versus myocardial injury, there must be a demonstrated rise and/or fall in the troponin values, in addition to ischemic symptoms, EKG changes, new regional wall motion abnormality, and/or angiographical evidence. PLEASE NOTE: REFERENCE RANGES EDITED 17 Performed By: #### L500.2500, L501.4010 #### [facility] [address] [place], [place], [address] PROTHROMBIN TIME W/INR Collected: 04/02/2018 Status: F Source: [place] 1:10 AM [facility] REPOSITORY Order Comment: REDRAW. PREVIOUS SPECIMEN REJECTED DUE TO Hemolyzed >4+. 04/02/18 0049 Jamilah Barkley. TYPE CODE TESTS RESULT OUT OF RANGE REFERENCE UNITS LAB L300.4150 11.7-14.9 SECONDS High PROTIME 32.3 LAB L300.4200 Normal INR 3.1 Performed By: #### L300.3900 #### [facility] [address] [place], [address] CHEST PA AND LATERAL Observed: 04/02/2018 Status: F Source: [place] 12:42 AM [facility] REPOSITORY [facility] Imaging Services [address] [place] [address] Chest PA and Lateral MR#: [id number] Acct: [id number] Name: JAMES BURK Rep #: [id number] : 1940 F 77 From: Flaca Jimenez MD PCP: Tigre WEAVER,Romie Carballo Status: REG ER Study: Chest PA and Lateral Date of Exam: 04/02/18 Exam# [id number] Ordering Dr: Rd Caceres MD STUDY: X-RAY [...] CC: Rd Caceres MD; Romie Landeros MD Diabetologist: Signed CBC W/DIFF, AUTOMATED Collected: 04/02/2018 Status: F Source: [place] 12:23 AM [facility] REPOSITORY TYPE CODE TESTS RESULT OUT OF [...] Lymph 1.91 Performed By: #### L100.0100 #### [facility] [address] [place], [address] HEMOGLOBIN A1C Collected: 04/02/2018 Status: F Source: [place] 12:23 AM [facility] REPOSITORY TYPE CODE TESTS RESULT OUT OF RANGE REFERENCE UNITS LAB L501.9985 4.2-6.3 % High HGB A1C 6.4 Performed By: #### L501.9985 #### [facility] [address] [place], [address] PROTHROMBIN TIME W/INR Collected: 03/20/2018 Status: F Source: [place] 2:04 PM [facility] REPOSITORY Order Comment: PLEASE SEND RESULTS OF PT/INR TO TYPE CODE TESTS RESULT OUT OF RANGE REFERENCE UNITS LAB L300.4150 11.7-14.9 SECONDS High PROTIME 34.4 LAB L300.4200 Normal INR 3.4 Performed By: #### L300.3900 #### [facility] [address] [place], [address] THYROID STIM HORMONE Collected: 03/20/2018 Status: F Source: [place] (TSH) 2:04 PM [facility] REPOSITORY TYPE CODE TESTS RESULT OUT OF RANGE REFERENCE UNITS LAB L501.9520 0.358-3.74 uIU/mL High TSH 6.83 Performed By: #### L501.9520 #### [facility] [address] [place], [address] PROTHROMBIN TIME W/INR Collected: 02/20/2018 Status: F Source: [place] 2:57 PM [facility] REPOSITORY Order Comment: Result obtained is for confirmation testing of Fingerstick PT/INR Specimen # [id number] . 02/20/18 Yelena BLANTON THIS CONFIRMATION SPECIMEN RESULT IS FROM VENOUS BLOOD. TYPE CODE TESTS RESULT OUT OF REFERENCE UNITS RANGE LAB L300.4150 11.7-14.9 SECONDS High PROTIME 36.5 LAB L300.4200 High alert INR 3.6 Result Comment: CRITICAL VALUE VERIFIED. CALLED TO RALPH AT [place] [facility] 02/20/18 1615 Davina Delong. RESULTS READ BACK BY SAME . Performed By: #### L300.3900 #### [facility] [address] [place], [address] PROTIME W/INR Collected: 02/20/2018 Status: F Source: [place] FINGERSTICK 2:52 PM [facility] REPOSITORY TYPE CODE TESTS RESULT OUT OF REFERENCE UNITS RANGE LAB L9200.1001 11.9-14.4 SEC High PROTIME ISTAT 52.0 Result Comment: Reference Range 11.9 - 14.4 LAB L9200.2000 High alert INR ISTAT 4.70 Result Comment: Critical Value > 3.5 Performed By: #### L9200.0000 #### [facility] Point of Care [address] [place] [address] PACEMAKER CHECK Observed: 02/16/2018 Status: F Source: [place] 2:41 PM [facility] REPOSITORY [facility] [address] [place] [address] Pacemaker Check Date of Service: 02/02/18 1733 MR#: [id number] Acct: [id number] Name: BHARGAVIJAMES J Rep #: [id number] : 1940 From: Shantal Peres Age/Sex: 77/F Location[place] [facility] Status: Signed Comments Summary Comments: Remote Dual Chamber ICD Evaluation: See attached scanned Latitude report. Remote interrogation shows 12 NSVT episodes and 75 MS episodes, <0.1% total time since 03/31/15. Stored e-gram on 01/27/18 shows atrial flutter with appropriate MS. Last NSVT episode occurred on 07/03/17. Presenting rhythm shows AAI pacing @ 67 ppm. RUBBER FLAP TUBER MACHINE OPERATOR=56%. Estimated battery life 8 yrs. Lead impedances and atrial sensing remain stable. Normal remote PPM function. Pt notified remote transmission received and next f/u appt scheduled for in 3 mos. Device Device Date Interviewed: 03/04/18 Follow-up Location: remote Interview Reason: scheduled follow up Ornamental Ironworker Helper: Topple Track Name: Energen ICD IS-1/DF-1 Model: E143 Serial #: [id number] Implant Date: 03/31/15 Year(s): 2 Implant Physician: Dr. Bubba Valenzuela Patient Characteristics Ventricular Indication: Nonsustained VT Patient Substrate: Ischemic cardiomyopathy Ejection fraction %: 20 to 24 (05/2017) By: Echo Underlying rhythm: Sinus rhythm Pacemaker Dependent: No Device Characteristics Device: Dual Chamber Type: Implantable defibrillator Remote Follow-Up: Latitude Leads Lead #1 Ornamental Ironworker Helper Lead 1: Guidant Model Lead 1: 4469 Serial# Lead 1: [id number] Date Implanted Lead 1: 08/22/04 Position Lead 1: RA Lead #2 Ornamental Ironworker Helper Lead 2: Guidant Model Lead 2: 0184 Serial# Lead 2: [id number] Date Implanted Lead 2: 08/22/04 Position Lead [...] 02/13/2018 Status: F Source: [place] 10:18 AM [facility] REPOSITORY Order Comment: SEND RESULTS TO @[id number] TYPE CODE TESTS RESULT OUT OF RANGE [...] LYMPHOPENIA NOTED Performed By: #### L100.0100 #### [facility] [place], [address] COMPREHENSIVE METABOLIC Collected: 02/13/2018 Status: F Source: [place] LUNDY 10:18 AM [facility] REPOSITORY Order Comment: SEND RESULTS TO @[id number] TYPE CODE TESTS RESULT OUT OF RANGE [...] GAP 7 Performed By: #### L500.4050 #### [facility] [address] [place], [address] PROTHROMBIN TIME W/INR Collected: 02/13/2018 Status: F Source: [place] 10:18 AM [facility] REPOSITORY TYPE CODE TESTS RESULT OUT OF RANGE REFERENCE UNITS LAB L300.4150 11.7-14.9 SECONDS High PROTIME 32.0 LAB L300.4200 Normal INR 3.1 Performed By: #### L300.3900 #### [facility] [address] [place], [address] PROTIME W/INR Collected: 02/09/2018 Status: F Source: [place] FINGERSTICK 1:21 PM [facility] REPOSITORY TYPE CODE TESTS RESULT OUT OF REFERENCE UNITS RANGE LAB L9200.1001 11.9-14.4 SEC High PROTIME ISTAT 25.0 Result Comment: Reference Range 11.9 - 14.4 LAB L9200.2000 Normal INR ISTAT 2.20 Result Comment: Critical Value > 3.5 Performed By: #### L9200.0000 #### [facility] Point of Care [address] [place] [address] CARDIOLOGY VISIT Observed: 02/04/2018 Status: F Source: [place] REPORT 5:13 PM [facility] REPOSITORY [facility] [address] [place] [address] OFFICE VISIT Date of Service: 02/04/18 MR#: [id number] Acct: [id number] Name: JAMES BURK Rep #: [id number] : 1940 Provider: John Hayden MD Age/Sex: 77/F Location[place] [facility] Status: Signed HPI HPI Details: JAMES BURK, [...] PO BID tab 02/04/18 [History Confirmed 02/04/18] [facility] Medical History Atrial dysrhythmia (Acute) Ventricular tachycardia (Acute) Chronic systolic congestive heart failure (Chronic) Atrial fibrillation (Chronic) Atrial flutter (Chronic) Dilated cardiomyopathy (Chronic) History of mitral valve replacement (Chronic 06/1997) 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 tachycardia (Chronic) intermission coordinator current use of 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) Anxiety states [...] She did have a transthoracic echocardiogram performed [facility] on 06/17/2017. The results are as [...] pharmacologic stress nuclear imaging study performed at [facility] on 05/01/2017. The results are as [...] diagnostic cardiac catheterization performed at [facility] on 08/21/2004 demonstrated the following: F[NA.L IMPRESSIONS: [...] an electrophysiology study performed at [facility] on 08/22/2004. At that time she had what was reported as normal sinus node and AV node conduction intervals and inducible ventricular tachycardia with poor hemodynamic tolerance. She does have a Topple Track Energen ICD IS-1/DF-1 model number E143 serial #[id number] implanted on 03/31/2015 dual-chamber implantable defibrillator. Her previous open heart surgery was performed at the [facility] on 06/21/1997. At that time [...] blood pressure. She will continue follow-up. 9. intermission coordinator current use of anticoagulant Z79.01 Plan She [...] Essential hypertension I10 Hypertension type: essential hypertension skilled nursing current use of anticoagulant Z79.01 Coding Level of Care Code Off vis,est,level 3 Diagnoses Dilated cardiomyopathy I42.0 Chronic systolic CHF (congestive heart failure) I50.22 History of mitral valve replacement Z95.2 Atrial dysrhythmia I49.8 Ventricular tachycardia I47.2 Presence of implantable cardioverter-defibrillator (ICD) Z95.810 Hyperlipidemia, unspecified hyperlipidemia type E78.5 Hyperlipidemia type: unspecified Essential hypertension I10 Hypertension type: essential hypertension skilled nursing current use of anticoagulant Z79.01 02/04/18 1713 <Electronically signed by John Hayden MD> Date John Hayden MD Cosigner Signature: Date (if applicable) CC: Romie Landeros MD PROTIME W/INR Collected: 01/09/2018 Status: F Source: [place] FINGERSTICK 2:27 PM [facility] REPOSITORY TYPE CODE TESTS RESULT OUT OF REFERENCE UNITS RANGE LAB L9200.1001 11.9-14.4 SEC High PROTIME ISTAT 34.8 Result Comment: Reference Range 11.9 - 14.4 LAB L9200.2000 Normal INR ISTAT 3.10 Result Comment: Critical Value > 3.5 Performed By: #### L9200.0000 #### [facility] Point of Care [facility] [address] [place], [place] [address] COMPREHENSIVE METABOLIC Collected: 12/12/2017 Status: F Source: [facility] 1:56 PM [facility] REPOSITORY TYPE CODE TESTS RESULT OUT OF [...] GAP 8 Performed By: #### L500.4050 #### [facility] [address] [place], [address] CBC W/DIFF, AUTOMATED Collected: 12/12/2017 Status: F Source: [place] 1:56 PM [facility] REPOSITORY TYPE CODE TESTS RESULT OUT OF [...] Lymph 1.00 Performed By: #### L100.0100 #### [facility] [address] [place], [address] PROTHROMBIN TIME W/INR Collected: 12/12/2017 Status: F Source: [place] 1:56 PM [facility] REPOSITORY TYPE CODE TESTS RESULT OUT OF RANGE REFERENCE UNITS LAB L300.4150 11.7-14.9 SECONDS High PROTIME 32.2 LAB L300.4200 Normal INR 3.1 Performed By: #### L300.3900 #### [facility] [address] [place], [address] PACEMAKER CHECK Observed: 11/26/2017 Status: F Source: [place] 11:16 AM [facility] REPOSITORY [facility] [address] [place] [address] Pacemaker Check Date of Service: 11/03/17 1147 MR#: [id number] Acct: [id number] Name: JAMES BURK Rep #: [id number] : 1940 From: Shantal Peres Age/Sex: 76/F Location: [facility] Status: Signed Comments Summary Comments: Remote Dual Chamber ICD Evaluation: Remote interrogation shows 74 MS episodes, <0.1% total time and 12 NSVT episodes since 03/31/15. Last ATR episode occurred on 08/01/17 and last NSVT episode occurred on 07/03/17. Pt on Coumadin. Presenting rhythm shows AAI pacing @ 67 ppm. Battery longevity approx 8.5 yrs. RUBBER FLAP TUBER MACHINE OPERATOR=57%. Lead impedances and atrial sensing remain stable. Normal remote ICD function. Pt notified remote transmission received and next f/u appt scheduled for in 3 mos. Device Device Date Interviewed: 11/03/17 Follow-up Location: remote Interview Reason: scheduled follow up Ornamental Ironworker Helper: Topple Track Name: Energen ICD IS-1/DF-1 Model: E143 Serial #: [id number] Implant Date: 03/31/15 Year(s): 2 Implant Physician: Dr. Bubba Valenzuela Patient Characteristics Ventricular Indication: Nonsustained VT Patient Substrate: Ischemic cardiomyopathy Ejection fraction %: 20 to 24 (05/2017) By: Echo Underlying rhythm: Sinus rhythm Pacemaker Dependent: No Device Characteristics Device: Dual Chamber Type: Implantable defibrillator Remote Follow-Up: Latitude Leads Lead #1 Ornamental Ironworker Helper Lead 1: Guidant Model Lead 1: 4469 Serial# Lead 1: [id number] Date Implanted Lead 1: 08/22/04 Position Lead 1: RA Lead #2 Ornamental Ironworker Helper Lead 2: Guidant Model Lead 2: 0184 Serial# Lead 2: [id number] Date Implanted Lead 2: 08/22/04 Position Lead [...] 11/26/17 1116<Electronically signed by John Hayden MD> Cosigner Signature: Date (if applicable) John Hayden MD CC: PROTIME W/INR Collected: 11/21/2017 Status: F Source: [place] 1:29 PM [facility] REPOSITORY TYPE CODE TESTS RESULT OUT OF REFERENCE UNITS RANGE LAB L9200.1001 11.9-14.4 SEC High PROTIME ISTAT 34.3 Result Comment: Reference Range 11.9 - 14.4 LAB L9200.1999 Normal INR ISTAT 3.00 Result Comment: Critical Value > 3.5 Performed By: #### L9200.0000 #### [facility] [place] [address] PROTIME W/INR Collected: 11/07/2017 Status: F Source: [place] 1:40 PM [facility] REPOSITORY TYPE CODE TESTS RESULT OUT OF REFERENCE UNITS RANGE LAB L9200.1001 11.9-14.4 SEC High PROTIME ISTAT 33.1 Result Comment: Reference Range 11.9 - 14.4 LAB L9200.2000 Normal INR ISTAT 2.90 Result Comment: Critical Value > 3.5 Performed By: #### L9200.0000 #### [facility] Point of Care [address] [place] [address] CBC W/DIFF, AUTOMATED Collected: 11/04/2017 Status: F Source: [place] 1:47 PM [facility] REPOSITORY TYPE CODE TESTS RESULT OUT OF [...] Lymph 0.89 Performed By: #### L100.0100 #### [facility] [address] [place], [place], [address] COMPREHENSIVE METABOLIC Collected: 11/04/2017 Status: F Source: [place] LUNDY 1:47 PM [facility] REPOSITORY TYPE CODE TESTS RESULT OUT OF [...] 5 Performed By: #### L500.4050, L501.9520 #### [facility] [address] [place], [address] THYROID STIM HORMONE Collected: 11/04/2017 Status: F Source: [place] (TSH) 1:47 PM [facility] REPOSITORY TYPE CODE TESTS RESULT OUT OF RANGE REFERENCE UNITS LAB L501.9520 0.358-3.74 uIU/mL High TSH 4.98 Performed By: #### L500.4050, L501.9520 #### [facility] [address] [place], [address] VITAMIN D,25 HYDROXY Collected: 11/04/2017 Status: F Source: [place] 1:47 PM [facility] REPOSITORY TYPE CODE TESTS RESULT OUT OF RANGE REFERENCE UNITS LAB L506.1000 29.95-100.01 ng/mL Normal Vitamin D 58.2 25-OH Result Comment: Vitamin D 25(OH) Status Range Deficiency <20 ng/mL (50nmol/L) Insuffciency 20 - 30 ng/mL (50 - 75 nmol/L) Sufficiency 30 - 100 ng/mL (75 - 250 nmol/L) Toxicity >100 ng/mL (>250 nmol/L) Performed By: #### L506.1000 #### [facility] [address] [place], [address] PROTHROMBIN TIME W/INR Collected: 10/31/2017 Status: F Source: [place] 2:54 PM [facility] REPOSITORY Order Comment: Result obtained is for confirmation testing of Fingerstick PT/INR Specimen # [id number] . 10/31/17 1506 FRANNY THIS CONFIRMATION SPECIMEN RESULT IS FROM VENOUS BLOOD. TYPE CODE TESTS RESULT OUT OF REFERENCE UNITS RANGE LAB L300.4150 11.7-14.9 SECONDS High PROTIME 37.6 LAB L300.4200 High alert INR 3.8 Result Comment: CRITICAL VALUE VERIFIED. CALLED TO [facility] 10/31/17 1628 Lisbeth Cavazos. RESULTS READ BACK BY SAME . Performed By: #### L300.3900 #### [facility] [address] [place], [address] PROTIME W/INR Collected: 10/31/2017 Status: F Source: [place] FINGER[place] 2:49 PM [facility] REPOSITORY TYPE CODE TESTS RESULT OUT OF REFERENCE UNITS RANGE LAB L9200.1001 11.9-14.4 SEC High PROTIME ISTAT 48.6 Result Comment: Reference Range 11.9 - 14.4 LAB L9200.2000 High alert INR ISTAT 4.30 Result Comment: Critical Value > 3.5 Performed By: #### L9200.0000 #### [facility] Point of Care [address] [place], [place] [address] BASIC METABOLIC Collected: 10/08/2017 Status: F Source: [place] PROFILE (BMP) 10:47 AM [facility] REPOSITORY TYPE CODE TESTS RESULT OUT OF [...] GAP 8 Performed By: #### L500.2500 #### [facility] [address] [place], [address] CBC W/DIFF, AUTOMATED Collected: 10/08/2017 Status: F Source: [place] 10:41 AM [facility] REPOSITORY TYPE CODE TESTS RESULT OUT OF [...] Lymph 0.72 Performed By: #### L100.0100 #### [facility] [address] [place], [place], [address] PROTHROMBIN TIME W/INR Collected: 10/08/2017 Status: F Source: [place] 10:41 AM [facility] REPOSITORY TYPE CODE TESTS RESULT OUT OF RANGE REFERENCE UNITS LAB L300.4150 11.7-14.9 SECONDS High PROTIME 28.5 LAB L300.4200 Normal INR 2.8 Performed By: #### L300.3900 #### [facility] [address] [place], [address] PROTIME W/INR Collected: 09/26/2017 Status: F Source: [place] FINGER[place] 1:39 PM [facility] REPOSITORY TYPE CODE TESTS RESULT OUT OF REFERENCE UNITS RANGE LAB L9200.1001 11.9-14.4 SEC High PROTIME ISTAT 27.0 Result Comment: Reference Range 11.9 - 14.4 LAB L9200.2000 Normal INR ISTAT 2.30 Result Comment: Critical Value > 3.5 Performed By: #### L9200.0000 #### [facility] Point of Care [address] [place] [address] PROTIME W/INR Collected: 09/12/2017 Status: F Source: [place] FINGER[place] 2:22 PM [facility] REPOSITORY TYPE CODE TESTS RESULT OUT OF REFERENCE UNITS RANGE LAB L9200.1001 11.9-14.4 SEC High PROTIME ISTAT 39.5 Result Comment: Reference Range 11.9 - 14.4 LAB L9200.2000 Normal INR ISTAT 3.50 Result Comment: Critical Value > 3.5 Performed By: #### L9200.0000 #### [facility] Point of Care [address] [place] [address] CERV SPINE 2 OR 3 Observed: 09/11/2017 Status: F Source: [place] VIEWS 11:40 AM [facility] REPOSITORY [facility] Imaging Services [address] [place] [address] Cerv Spine 2 or 3 Views MR#: [id number] Acct: [id number] Name: JAMES BURK Rep #: [id number] : 1940 F 76 From: Hermelindo Barnett MD PCP: Tigre WEAVER,Romie Carballo Status: REG CLI Study: Cerv Spine 2 or 3 Views Date of Exam: 09/11/17 Exam# [id number] Ordering Dr: Romie Landeros MD STUDY: X-RAY [...] Service support , CC: Romie Landeros MD Diabetologist: Signed Observed: 09/10/2017 Status: F Source: [place] CULTURE, URINE 4:58 PM [facility] REPOSITORY Urine Culture Below infection level. ORGANISM 1: Mixed Gram Pos AND Gram Neg Org Innis Count 1000-10,000 MIX CULTURE Mixed contaminants. Submit a new specimen if indicated. Performed By: #### M100.0650 #### [facility] [address] [place], [place], [address] CBC W/DIFF, AUTOMATED Collected: 09/10/2017 Status: F Source: [place] 2:05 PM [facility] REPOSITORY TYPE CODE TESTS RESULT OUT OF [...] Lymph 0.64 Performed By: #### L100.0100 #### [facility] [place], [address] COMPREHENSIVE METABOLIC Collected: 09/10/2017 Status: F Source: [facility] 2:05 PM [facility] REPOSITORY TYPE CODE TESTS RESULT OUT OF [...] GAP 10 Performed By: #### L500.4050 #### [facility] [address] [place], [address] Observed: 09/10/2017 Status: F Source: [place] RESPIRATORY PANEL 1:59 PM [facility] MOLECULAR REPOSITORY RP PANEL Normal Reference Range = Not Detected RESULTS CALLED TO NURSE VOICEMAIL 09/11/17 Shana4 Zena Mittal. Copy of report sent to Infection Control Printer MS#[id number] 09/11/17 1015 ISIDRO. ADENOVIRUS Not Detected HUMAN METAPHNEUMO Positive for [...] HUMAN META Performed By: #### M100.638 #### [facility] [address] [place], [address] BRAIN/HEAD WITHOUT Observed: 09/10/2017 Status: F Source: [place] CONTRAST 1:44 PM [facility] REPOSITORY [facility] Imaging Services [address] [place] [address] Brain/Head without Contrast MR#: [id number] Acct: [id number] Name: JAMES BURK Rep #: [id number] : 1940 F 76 From: Aman Real MD PCP: Romie Landeros MD, Chi Status: REG CLI Study: Brain/Head without Contrast Date of Exam: 09/10/17 Exam# [id number] Ordering Dr: Romie Landeros MD STUDY: CT [...] Aman Real MD at 14:39 EST Tel [phone], Service support , CC: Romie Landeros MD Diabetologist: Signed ALLERGIES ALLERGIES DATE TYPE / CODE NAME / CODE REACTION SEVERITY SOURCE 08/03/2018 Drug Iodinated I JUMP AROUND Unknown [facility] Allergy/416 Contrast- Oral ON THE TABLE Hospital 833948(SNOM and IV Repository ED CT) Dye/[id number](R XNORM) 08/03/2018 Drug HERMILO Unknown Unknown [facility] Allergy/416 Inhibitors/F0010 Hospital 310444(SNOM 19049(RXNORM) Repository ED CT) 08/03/2018 Drug iodine/[id number] I JUMP AND Unknown [facility] Allergy/416 2(RXNORM) FLOP AROUND ON Hospital 005366(SNOM THE TABLE Repository ED CT) 08/03/2018 Drug amiodarone/F0060 Unknown Unknown [facility] Allergy/416 86315(RXNORM) Hospital 701981(SNOM Repository ED CT) ENCOUNTERS ENCOUNTERS ADMIT/DISCHARGE ACCOUNT ADMITTING ENCOUNTER LOCATION SOURCE NUMBER CLASS 09/02/2018 [id number] [place] 3 [facility] ing:MTLAB Repository 08/26/2018/ [id number] Ambulatory BMSBuilding:B [place] [address] [facility] Repository 08/14/2018/ [id number] [place] 5 [facility] 08/03/2018/ [id number] Ambulatory BMSBuilding:B [place] 8 2 [facility] Repository 07/29/2018 [id number] Ambulatory [place] 0 [facility] Hospital ing:POLAB3 Repository 07/20/2018 [id number] [place] [facility] ing:LAB.WAYLONUR Repository E 07/14/2018 [id number] Ambulatory [place] 9 [facility] Hospital ing:POLAB3 Repository 07/06/2018/ [id number] [place] [address] [facility] ing:MTLAB Repository 06/30/2018 [id number] Ambulatory [place] 4 [facility] Hospital ing:POLAB3 Repository 06/23/2018 [id number] Ambulatory [place] 5 [facility] Hospital ing:POLAB3 Repository 06/10/2018 [id number] Ambulatory [place] 1 [facility] Hospital ing:POLAB3 Repository 05/26/2018 [id number] Ambulatory [place] 5 [facility] Hospital ing:RAD Repository 05/15/2018/ [id number] Ambulatory [place] 8 2 [facility] Hospital ing:MTLAB Repository 05/13/2018/ [id number] Ambulatory BMSBuilding:B [place] 8 5 [facility] Repository 05/08/2018 [id number] Ambulatory [place] 4 [facility] Hospital ing:POLAB3 Repository 04/06/2018/ [id number] Ambulatory [place] [address] [facility] ing:MTLAB Repository 04/02/2018/ [id number] [place], Ambulatory [place] 8 1 [facility] Hospital ing:PCURoom: Repository JOV336Tkw: 1 04/02/2018 [id number] [place], Ambulatory BMSBuilding:B [place] 5 [place].[facility] Repository 04/02/2018 [id number] [place], Ambulatory BMSBuilding:B [place] 4 [place] MS.CF.[facility] Repository 03/20/2018 [id number] [facility] [place] [facility] ing:LAB.FUTUR Repository E 02/20/2018/ [id number] Ambulatory [place] [address] [facility] ing:MTLAB Repository 02/13/2018 [id number] [place] [facility] ing:POLAB3 Repository 02/09/2018/ [id number] Ambulatory [place] [address] [facility] ing:MTLAB Repository 02/04/2018/ [id number] Ambulatory BMSBuilding:B [place] 8 8 [facility] Repository 02/04/2018 [id number] Ambulatory BMSBuilding:B [place] 3 [facility] Repository 02/02/2018/ [id number] Ambulatory BMSBuilding:B [place] 8 2 [facility] Repository 01/09/2018/ [id number] [place] [address] [facility] ing:MTLAB Repository 12/12/2017/ [id number] Ambulatory [place] [address] [facility] ing:MTLAB Repository 11/07/2017/ [id number] Ambulatory [place] [address] [facility] ing:MTLAB Repository 11/04/2017 [id number] Amb[place] [facility] ing:POLAB3 Repository 11/03/2017/ [id number] Ambulatory BMSBuilding:B [place] 8 8 [facility] Repository 10/16/2017 [id number] [place] [facility] ing:MTLAB Repository 10/09/2017 [id number] Amb[place] [facility] ing:LAB.FUTUR Repository E 10/08/2017/ [id number] Ambulatory [place] [address] [facility] ing:MTLAB Repository 09/11/2017 [id number] Amb[place] [facility] ing:RAD Repository 09/10/2017 [id number] Ambulatory [place] 5 [facility] ing:POLAB3 Repository 09/10/2017 [id number] Ambulatory [place] 6 [facility] ing:CT Repository 08/29/2017/ [id number] Ambulatory [place] 8 8 [facility] ing:MTLAB Repository PAYERS PAYERS ENCOUNTER GUARANTOR PAYER SUBSCRIBER SOURCE 09/02/2018 JAMES J Primary JAMES J [place] [id number] CR Insurance:MEDICARE ANDERSONDOB: [address], PART A BPolicy Number: [email or web address] [address]Mhb: [id number] Repository Date:2018-07-20 () 09/02/2018 Secondary JAMES J [place] Insurance:MEDICAL ANDERSONDOB: [facility] [id number] Hospital Number: Repository [id number] Date:[id number] [address]EJ: 09/02/2018 Tertiary NOT GIVENUNK [place] Insurance:SELF PAY [facility] Number: Effective Repository Date:2018-08-17 08/26/2018 JAMES J Primary JAMES J [place] [id number] CR Insurance:MEDICARE ANDERSONDOB: [address] A BPolicy Number: [id number] [facility]es [facility] [[email or web address]] [address]15[address]Pnf: [id number] Repository Date:2018-05-20 () 08/26/2018 Secondary JAMES J [place] Insurance:MEDICAL ANDERSONDOB: [facility] [id number] Hospital Number: Repository [id number] Date:[id number] [address]XD: 08/26/2018 Tertiary NOT GIVENUNK [place] Insurance:SELF PAY [facility] Number: Effective Repository Date:2018-08-26 08/14/2018 JAMES J Primary JAMES J [place] [id number] CR Insurance:MEDICARE ANDERSONDOB: [address], PART A BPolicy Number: [id number] Crosses Regional Hospital [[email or web address]] 669[address]Ljt: [id number] Repository Date:2018-07-20 () 08/14/2018 Secondary JAMES J [place] Insurance:HUMANA ANDERSONDOB: [facility] [id number] Hospital Number: Repository [id number] Date:[id number] [address] [place] [address]QF: 08/14/2018 Tertiary NOT GIVENUNK [place] Insurance:SELF PAY [facility] Number: Effective Repository Date:2018-07-20 08/03/2018 JAMES J Primary JAMES J [place] [id number] CR Insurance:MEDICARE ANDERSONDOB: [address], PART A BPolicy Number: [id number] Crosses [facility] [[email or web address]] [address]Vaq: [id number] Repository Date:2018-02-04 () 08/03/2018 Secondary JAMES J [place] Insurance:HUMANA ANDERSONDOB: [facility] [id number] Hospital Number: Repository [id number] Date:1885-74-66LP [address] [place] [address]QO: 08/03/2018 Tertiary NOT GIVENUNK [place] Insurance:SELF PAY [facility] Number: Effective Repository Date:2018-07-31 07/29/2018 JAMES J Primary JAMES J [place] [id number] CR Insurance:MEDICARE ANDERSONDOB: [address], PART A BPolicy Number: [id number] Crosses [facility] [[email or web address]] [address]17[address]Gmu: [id number] Repository Date:2018-07-16 () 07/29/2018 Secondary JAMES J [place] Insurance:HUMANA ANDERSONDOB: [facility] [id number] Hospital Number: Repository [id number] Date:[id number] [address] [place] [address]KJ: 07/29/2018 Tertiary NOT GIVENUNK [place] Insurance:SELF PAY [facility] Number: Effective Repository Date:2018-07-16 07/20/2018 JAMES J Primary JAMES J [place] [id number] CR Insurance:MEDICARE ANDERSONDOB: Community [address], PART A BPolicy Number: [id number] [facility]es [facility] [[email or web address]] [address]Lhz: [id number] Repository Date:2018-06-11 () 07/20/2018 Secondary JAMES J [place] Insurance:HUMANA ANDERSONDOB: [facility] [id number] Hospital Number: Repository [id number] Date:6490-60-59CG [address] [address]TZ: 07/20/2018 Tertiary NOT GIVENUNK [place] Insurance:SELF PAY [facility] Number: Effective Repository Date:2018-06-11 07/14/2018 JAMES J Primary JAMES J [place] [id number] CR Insurance:MEDICARE ANDERSONDOB: Community [address] [place], PART A BPolicy Number: [id number] [facility]es [facility] [[email or web address]] [address]Oax: [id number] Repository Date:2018-07-14 () 07/14/2018 Secondary JAMES J [place] Insurance:HUMANA ANDERSONDOB: [facility] [id number] Hospital Number: Repository [id number] Date:7594-78-74BT [address] [address]VS: 07/14/2018 Tertiary NOT GIVENUNK [place] Insurance:SELF PAY [facility] Number: Effective Repository Date:2018-07-14 07/06/2018 JAMES J Primary JAMES J [place] [id number] CR Insurance:MEDICARE ANDERSONDOB: Community [address] [place], PART A BPolicy Number: [id number] Crosses [facility] [[email or web address]] [address]Uie: [id number] Repository Date:2005-11-16 () 07/06/2018 Secondary JAMES J [place] Insurance:HUMANA ANDERSONDOB: Community [facility] [id number] Hospital Number: Repository [id number] Date:6849-61-64TW [address] [address]RF: 07/06/2018 Tertiary NOT GIVENUNK [place] Insurance:SELF PAY Formerly [facility] Number: Effective Repository Date:2018-05-19 06/30/2018 JAMES J Primary JAMES J [place] [id number] CR Insurance:MEDICARE ANDERSONDOB: Community [address] [place], PART A BPolicy Number: [email or web address] 72309Qgy: [id number] Repository Date:2018-06-30 () 06/30/2018 Secondary JAMES J [place] Insurance:HUMANA ANDERSONDOB: [facility]ly [facility] [id number] Hospital Number: Repository [id number] Date:7844-48-57ZS [address] [address]SM: 06/30/2018 Tertiary NOT GIVENUNK [place] Insurance:SELF PAY [facility] Number: Effective Repository Date:2018-06-30 06/23/2018 JAMES J Primary JAMES J [place] [id number] CR Insurance:MEDICARE ANDERSONDOB: Community [address] [place], PART A BPolicy Number: [id number] [facility] [[email or web address]] 49204Zqb: [id number] Repository Date:2018-06-23 () 06/23/2018 Secondary JAMES J [place] Insurance:HUMANA ANDERSONDOB: [facility]ly [facility] [id number] Hospital Number: Repository [id number] Date:4397-57-59ZU [address] [address]NG: 06/23/2018 Tertiary NOT GIVENUNK [place] Insurance:SELF PAY [facility] Number: Effective Repository Date:2018-06-23 06/10/2018 JAMES J Primary JMAES J [place] [id number] CR Insurance:MEDICARE ANDERSONDOB: [address], PART A olicy Number: [id number] Crosses Regional Hospital [[email or web address]] 93078Wyv: [id number] Repository Date:2018-06-10 () 06/10/2018 Secondary JAMES J [place] Insurance:HUMANA ANDERSONDOB: [facility] [id number] Hospital Number: Repository [id number] Date:4569-49-16TG [address] [address]SZ: 06/10/2018 Tertiary NOT GIVENUNK [place] Insurance:SELF PAY [facility] Number: Effective Repository Date:2018-06-10 05/26/2018 JAMES J Primary JAMES J [place] [id number] CR Insurance:MEDICARE ANDERSONDOB: [address] PART A [facility] Number: [id number] [facility]es Regional [facility] [[email or web address]] 76565Zyx: [id number] Repository Date:2018-05-26 () 05/26/2018 Secondary JAMES J [place] Insurance:HUMANA ANDERSONDOB: [facility] [id number] Hospital Number: Repository [id number] Date:8526-90-22QF[address] [address]RC: 05/26/2018 Tertiary NOT GIVENUNK [place] Insurance:SELF PAY [facility] Number: Effective Repository Date:2018-05-26 05/15/2018 JAMES J Primary JAMES J [place] [id number] Insurance:MEDICARE ANDERSONDOB: [facility] PART A olicy Number: [id number] [id number] Repository [place] [address]Jjq: Date:2005-11-16 () 05/15/2018 Secondary AJMES J [place] Insurance:HUMANA ANDERSONDOB: [facility] [id number] Hospital Number: Repository [id number] Date:7739-53-34VV [address] [place] [address]KP: 05/15/2018 Tertiary NOT GIVENUNK [place] Insurance:SELF PAY [facility] Number: Effective Repository Date:2018-04-22 05/13/2018 JAMES J Primary JAMES J [place] [id number] Insurance:MEDICARE ANDERSONDOB: [facility] PART A BPolicy Number: [id number] [id number] Repository [place] [address]Grb: Date:2018-02-02 () 05/13/2018 Secondary JAMES J [place] Insurance:HUMANA ANDERSONDOB: [facility] [id number] Hospital Number: Repository [id number] Date:2023-31-87FO [address] [address]GD: 05/13/2018 Tertiary NOT GIVENUNK [place] Insurance:SELF PAY [facility] Number: Effective Repository Date:2018-05-13 05/08/2018 JAMES J Primary JAMES J [place] [id number] CR Insurance:MEDICARE ANDERSONDOB: [address], PART A [facility] Number: [id number] [facility]es [facility] [[email or web address]] 30434Bft: [id number] Repository Date:2018-05-08 () 05/08/2018 Secondary JAMES J [place] Insurance:HUMANA ANDERSONDOB: [facility] [id number] Hospital Number: Repository [id number] Date:2215-25-90HQ [address] [place] [address]YO: 05/08/2018 Tertiary NOT GIVENUNK [place] Insurance:SELF PAY [facility] Number: Effective Repository Date:2018-05-08 04/06/2018 JAMES J Primary JAMES J [place] [id number] CR Insurance:MEDICARE ANDERSONDOB: [address], PART A [facility] Number: [id number] [facility]es Regional [facility] [[email or web address]] [address]7798Qor: [id number] Repository Date:2005-11-16 () 04/06/2018 Secondary JAMES J [place] Insurance:HUMANA ANDERSONDOB: [facility] [id number] Hospital Number: Repository [id number] Date:6566-53-87FV [address] [address]QR: 04/06/2018 Tertiary NOT GIVENUNK [place] Insurance:SELF PAY [facility] Number: Effective Repository Date:2018-03-20 04/02/2018 JAMES J Primary JAMES J [place] [id number] CR Insurance:MEDICARE ANDERSONDOB: [facility]ly [facility] [address] [place], PART A [facility] Number: [id number] [facility]es [facility] [[email or web address]] 32095Qsn: [id number] Repository Date:2018-04-02 () 04/02/2018 Secondary JAMES J [place] Insurance:HUMANA ANDERSONDOB: [facility] [id number] Hospital Number: Repository [id number] Date:1721-02-12SL [address] [address]QK: 04/02/2018 Tertiary NOT GIVENUNK [place] Insurance:SELF PAY [facility] Number: Effective Repository Date:2018-04-02 04/02/2018 JAMES J Primary JAMES J [place] [id number] CR Insurance:MEDICARE ANDERSONDOB: [facility]ly [facility] [address] [place], PART A olicy Number: [id number] [facility]es [facility] [[email or web address]] 87511Gpm: [id number] Repository Date:2018-04-02 () 04/02/2018 Secondary JAMES J [place] Insurance:HUMANA ANDERSONDOB: [facility] [id number] Hospital Number: Repository [id number] Date:1641-86-30MG [address] [address]VS: 04/02/2018 Tertiary NOT GIVENUNK [place] Insurance:SELF PAY [facility] Number: Effective Repository Date:2018-04-02 04/02/2018 JAMES J Primary JAMES J [place] [id number] CR Insurance:MEDICARE ANDERSONDOB: [address], PART A olicy Number: [id number] Crosses Regional Hospital [[email or web address]] 56006Igk: [id number] Repository Date:2018-04-02 () 04/02/2018 Secondary JAMES J [place] Insurance:HUMANA ANDERSONDOB: [facility] [id number] Hospital Number: Repository [id number] Date:9104-37-22CG [address] [place] [address]CM: 04/02/2018 Tertiary NOT GIVENUNK [place] Insurance:SELF PAY [facility] Number: Effective Repository Date:2018-04-02 03/20/2018 JAMES J Primary JAMES J [place] [id number] CR Insurance:MEDICARE ANDERSONDOB: [address], PART A [facility] Number: [id number] [facility]es [facility] [[email or web address]] 72369Coo: [id number] Repository Date:2017-11-12 () 03/20/2018 Secondary JAMES J [place] Insurance:HUMANA ANDERSONDOB: [facility] [id number] Hospital Number: Repository [id number] Date:9967-84-49YZ [address] [place] [address]ZN: 03/20/2018 Tertiary NOT GIVENUNK [place] Insurance:SELF PAY [facility] Number: Effective Repository Date:2017-11-12 02/20/2018 JAMES J Primary JAMES J [place] [id number] Insurance:MEDICARE ANDERSONDOB: [facility]ly [facility] [id number] PART A olicy [place]: [id number] [id number] Repository [address]Pmf: (146) Date:2005-11-16 [phone] () 02/20/2018 Secondary JAMES J [place] Insurance:HUMANA ANDERSONDOB: [facility] [id number] Hospital Number: Repository [id number] Date:6180-65-72GI [address] [place] [address]PS: 02/20/2018 Tertiary NOT GIVENUNK [place] Insurance:SELF PAY [facility] Number: Effective Repository Date:2018-02-13 02/13/2018 JAMES J Primary JAMES J [place] [id number] Insurance:MEDICARE ANDERSONDOB: [facility] PART A BPolicy Number: [id number] [id number] Repository [place] [address]Hnx: Date:2018-02-13 () 02/13/2018 Secondary JAMES J [place] Insurance:HUMANA ANDERSONDOB: [facility] [id number] Hospital Number: Repository [id number] Date:9318-15-23DD[address] [address]WR: 02/13/2018 Tertiary NOT GIVENUNK [place] Insurance:SELF PAY [facility] Number: Effective Repository Date:2018-02-13 02/09/2018 JAMES J Primary JAMES J [place] [id number] Insurance:MEDICARE ANDERSONDOB: [facility] PART A olicy Number: [id number] [id number] Repository [place] [address]Azq: Date:2005-11-16 () 02/09/2018 Secondary JAMES J [place] Insurance:HUMANA ANDERSONDOB: [facility] [id number] Hospital Number: Repository [id number] Date:5361-24-86YB[address] [address]NH: 02/09/2018 Tertiary NOT GIVENUNK [place] Insurance:SELF PAY [facility] Number: Effective Repository Date:2018-01-15 02/04/2018 JAMES J Primary JAMES J [place] [id number] Insurance:MEDICARE ANDERSONDOB: [facility] PART A olicy Number: [id number], [id number] Repository [place] [address]Tmg: Date:2017-08-07 () 02/04/2018 Secondary JAMES J [place] Insurance:HUMANA ANDERSONDOB: [facility] [id number] Hospital Number: Repository [id number] Date:7113-92-55GF [address] [address]BJ: 02/04/2018 Tertiary NOT GIVENUNK [place] Insurance:SELF PAY [facility] Number: Effective Repository Date:2018-02-04 02/04/2018 JAMES J Primary JAMES J [place] [id number] CR Insurance:MEDICARE ANDERSONDOB: [address], PART A BPolicy Number: [id number] Crosses Regional [facility] [[email or web address]] 22649Uhs: [id number] Repository Date:2018-02-04 () 02/04/2018 Secondary JAMES J [place] Insurance:HUMANA ANDERSONDOB: [facility] [id number] Hospital Number: Repository [id number] Date:1282-47-26OA[address] [address]NH: 02/04/2018 Tertiary NOT GIVENUNK [place] Insurance:SELF PAY [facility] Number: Effective Repository Date:2018-02-04 02/02/2018 JAMES J Primary JAMES J [place] [id number] CR Insurance:MEDICARE ANDERSONDOB: [address], PART A BPolicy Number: [id number] Crosses Regional Hospital [[email or web address]] [address]Dbw: [id number] Repository Date:2017-11-03 () 02/02/2018 Secondary JAMES J [place] Insurance:HUMANA ANDERSONDOB: [facility] [id number] Hospital Number: Repository [id number] Date:8445-75-37RV [address] [place] [address]MJ: 02/02/2018 Tertiary NOT GIVENUNK [place] Insurance:SELF PAY [facility] Number: Effective Repository Date:2018-02-02 01/09/2018 JAMES J Primary JAMES J [place] [id number] CR Insurance:MEDICARE ANDERSONDOB: Community [address] [place], PART A BPolicy Number: [id number] Crosses Regional Hospital [[email or web address]] [address]Psp: [id number] Repository Date:2005-11-16 () 01/09/2018 Secondary JAMES J [place] Insurance:HUMANA ANDERSONDOB: Community [facility] [id number] Hospital Number: Repository [id number] Date:6302-45-12DJ [address] [address]SS: 01/09/2018 Tertiary NOT GIVENUNK [place] Insurance:SELF PAY [facility] Number: Effective Repository Date:2017-12-16 12/12/2017 JAMES J Primary JAMES J [place] [id number] CR Insurance:MEDICARE ANDERSONDOB: [address] [place], PART A BPolicy Number: [id number] [facility]es [facility] [[email or web address]] [address]487Jle: [id number] Repository Date:2005-11-16 () 12/12/2017 Secondary JAMES J [place] Insurance:HUMANA ANDERSONDOB: [facility] [id number] Hospital Number: Repository [id number] Date:8859-41-38AT [address] [address]KD: 12/12/2017 Tertiary NOT GIVENUNK [place] Insurance:SELF PAY [facility] Number: Effective Repository Date:2017-11-17 11/07/2017 JAMES J Primary JAMES J [place] [id number] CR Insurance:MEDICARE ANDERSONDOB: Community [address] [place], PART A BPolicy Number: [id number] Crosses Regional Hospital [[email or web address]] [address]Fax: [id number] Repository Date:2005-11-16 () 11/07/2017 Secondary JAMES J [place] Insurance:HUMANA ANDERSONDOB: Community COMMERCIALPolicy [id number] Hospital Number: Repository [id number] Date:6822-67-62IX[address] [address]LZ: 11/07/2017 Tertiary NOT GIVENUNK [place] Insurance:SELF PAY [facility] Hospital Number: Effective Repository Date:2017-04-18 11/04/2017 JAMES J Primary JAMES J [place] [id number] CR Insurance:MEDICARE ANDERSONDOB: Community [address] [place], PART A BPolicy Number: [id number] Crosses Regional Hospital [[email or web address]] [address]4612Wbc: [id number] Repository Date:2017-11-04 () 11/04/2017 Secondary JAMES J [place] Insurance:HUMANA ANDERSONDOB: [facility]ALSout[facility] Servicesicy [id number] Hospital Number: Repository [id number] Date:3078-20-54FP[address] [address]NX: 11/04/2017 Tertiary NOT GIVENUNK [place] Insurance:SELF PAY [facility] Hospital Number: Effective Repository Date:2017-11-04 11/03/2017 JAMES J Primary JAMES J [place] [id number] CR Insurance:MEDICARE ANDERSONDOB: Community [address] [place], PART A BPolicy Number: [id number] Crosses Regional Hospital [[email or web address]] 29319Zqs: [id number] Repository Date:2017-08-04 () 11/03/2017 Secondary JAMES J [place] Insurance:HUMANA ANDERSONDOB: [facility] Services[facility] [id number] Hospital Number: Repository [id number] Date:2276-02-10BL[address] [address]RO: 11/03/2017 Tertiary NOT GIVENUNK [place] Insurance:SELF PAY [facility] Hospital Number: Effective Repository Date:2017-08-04 10/16/2017 JAMES J Primary JAMES J [place] [id number] CR Insurance:MEDICARE ANDERSONDOB: Community [address] [place], PART A BPolicy Number: [id number] Crosses Regional Hospital [[email or web address]] 08582Fwp: [id number] Repository Date:2017-09-19 () 10/16/2017 Secondary JAMES J [place] Insurance:HUMANA ANDERSONDOB: [facility] COMMERCIALPolicy [id number] Hospital Number: Repository [id number] Date:2329-79-55TR [address] [address]BD: 10/16/2017 Tertiary NOT GIVENUNK [place] Insurance:SELF PAY [facility] Number: Effective Repository Date:2017-10-15 10/09/2017 JAMES J Primary JAMES J [place] [id number] CR Insurance:MEDICARE ANDERSONDOB: [address], PART A BPolicy Number: [id number] Crosses Regional Hospital [[email or web address]] 22403Vxs: [id number] Repository Date:2017-09-25 () 10/09/2017 Secondary JAMES J [place] Insurance:HUMANA ANDERSONDOB: [facility] [id number] Hospital Number: Repository [id number] Date:7303-15-25QP[address] [address]VX: 10/09/2017 Tertiary NOT GIVENUNK [place] Insurance:SELF PAY [facility] Number: Effective Repository Date:2017-09-25 10/08/2017 JAMES J Primary JAMES J [place] [id number] CR Insurance:MEDICARE ANDERSONDOB: [address] BPolicy Number: [id number] Crosses Regional Hospital [[email or web address]] 16615Npo: [id number] Repository Date:2017-09-19 () 10/08/2017 Secondary JAMES J [place] Insurance:HUMANA ANDERSONDOB: [facility] [id number] Hospital Number: Repository [id number] Date:9930-52-84UF [address] [address]PF: 10/08/2017 Tertiary NOT GIVENUNK [place] Insurance:SELF PAY [facility] Number: Effective Repository Date:2017-09-19 09/11/2017 JAMES J Primary JAMES J [place] [id number] CR Insurance:MEDICARE ANDERSONDOB: Community [address] [place], PART A BPolicy Number: [id number] Crosses Regional Hospital [[email or web address]] 04833Bah: [id number] Repository Date:2017-09-11 (HP) 09/11/2017 Secondary JAMES J [place] Insurance:HUMANA ANDERSONDOB: [facility] [id number] Hospital Number: Repository [id number] Date:1676-36-02XS [address] [address]YV: 09/11/2017 Tertiary NOT GIVENUNK [place] Insurance:SELF PAY [facility] Number: Effective Repository Date:2017-09-11 09/10/2017 JAMES J Primary JAMES J [place] [id number] CR Insurance:MEDICARE ANDERSONDOB: Community [address] [place], PART A BPolicy Number: [id number] Crosses Regional Hospital [[email or web address]] 28734Nxq: [id number] Repository Date:2017-09-10 () 09/10/2017 Secondary JAMES J [place] Insurance:HUMANA ANDERSONDOB: [facility] [id number] Hospital Number: Repository [id number] Date:8217-81-39GA [address] [address]SC: 09/10/2017 Tertiary NOT GIVENUNK [place] Insurance:SELF PAY [facility] Number: Effective Repository Date:2017-09-10 09/10/2017 JAMES J Primary JAMES J [place] [id number] CR Insurance:MEDICARE ANDERSONDOB: Community [address] [place], PART A BPolicy Number: [id number] Crosses Regional Hospital [[email or web address]] 21553Zyi: [id number] Repository Date:2017-09-10 (HP) 09/10/2017 Secondary JAMES J [place] Insurance:HUMANA ANDERSONDOB: Community COMMERCIALPoly [id number] Hospital Number: Repository [id number] Date:4501-47-77GI[address] [address]CM: 09/10/2017 Tertiary NOT GIVENUNK [place] Insurance:SELF PAY [facility] Number: Effective Repository Date:2017-09-10 08/29/2017 JAMES J Primary JAMES J [place] [id number] CR Insurance:MEDICARE ANDERSONDOB: [address] BPolicy Number: [id number] Crosses Regional Hospital [[email or web address]] 75313Qfz: [id number] Repository Date:2005-11-16 () 08/29/2017 Secondary JAMES J [place] Insurance:HUMANA ANDERSONDOB: [facility] [id number] Hospital Number: Repository [id number] Date:4734-08-83MN[address] [address]YP: 08/29/2017 Tertiary NOT GIVENUNK [place] Insurance:SELF PAY [facility] Number: Effective Repository Date:2017-08-18
== END ==
PROVIDERS: Family Provider Family Medicine Geriatric Medicine; PCP Family Medicine Geriatric Medicine; Visit Provider Family Medicine Geriatric Medicine
DX: I50.22 Chronic systolic (congestive) heart failure (principal)
CPT/HCPCS: 36415; 80048

== ENCOUNTER 2018-08-14 14:14 | Outpatient (RCR) | payer MEDICARE, OTHER, SELFPAY ==
[2018-07-20 15:26] LABS: Prothrombin Time Fingerstick 28.2 SEC (11.9-14.4)
[2018-08-03 16:01] LABS: Prothrombin Time Fingerstick 22.2 SEC (11.9-14.4)
[2018-08-14 14:25] LABS: Prothrombin Time Fingerstick 24.6 SEC (11.9-14.4)
== END 2018-08-14 15:00 | disposition home or self-care (01) ==
LOC: MTLAB 14:14
PROVIDERS: Family Provider Family Medicine Geriatric Medicine; PCP Family Medicine Geriatric Medicine; Referring Provider Internal Medicine Cardiovascular Disease; Visit Provider Internal Medicine Cardiovascular Disease
DX: I48.91 Unspecified atrial fibrillation (principal); Z79.01 Long term (current) use of anticoagulants
CPT/HCPCS: 36416; 85610

== ENCOUNTER 2018-09-02 13:38 | Outpatient (RCR) | payer MEDICARE, OTHER, SELFPAY ==
[2018-08-03 14:19] VITALS: BMI 20.5
[2018-08-21 14:05] LABS: Prothrombin Time Fingerstick 29.6 SEC (11.9-14.4)
[2018-09-02 13:50] LABS: Prothrombin Time Fingerstick 31.1 SEC (11.9-14.4)
== END 2018-09-02 15:00 | disposition home or self-care (01) ==
LOC: MTLAB 13:38
PROVIDERS: Family Provider Family Medicine Geriatric Medicine; PCP Family Medicine Geriatric Medicine; Referring Provider Internal Medicine Cardiovascular Disease; Visit Provider Internal Medicine Cardiovascular Disease
DX: I48.91 Unspecified atrial fibrillation (principal); Z79.01 Long term (current) use of anticoagulants
CPT/HCPCS: 36416; 85610

== ENCOUNTER → 2018-09-18 12:53 | Outpatient (CLI) | payer MEDICARE, OTHER, SELFPAY ==
[2018-08-03 14:19] VITALS: BMI 20.5
--- NOTE | 2018-09-18 12:55 | ECHOD_ITS ---
Reason For Study: CHF Procedure This was a 2D Doppler, Color Flow transthoracic echocardiogram. The study was technically difficult. Exam performed in department. Left Ventricle Mildly dilated left ventricle. Severe global left ventricular systolic dysfunction. The estimated ejection fraction is 25 %. Right Ventricle Normal RV size. ICD or pacer leads identified within the right ventricle. Normal systolic function. Atria The left atrium is moderately enlarged. Normal right atrium. ICD or pacer leads identified within the right atrium. No doppler evidence for ASD. Mitral Valve Stable appearing mechanical mitral valve apparatus. Trivial transvalvular insufficiency of the mitral valve. Tricuspid Valve Normal tricuspid valve. Mild to moderate (1-2+) tricuspid valve insufficiency. Right ventricular systolic pressure estimated to be 23 mmHg. Aortic Valve Trisinus/trileaflet aortic valve. Normal aortic valve. Pulmonic Valve The pulmonic valve is not well visualized. Great Vessels Normal sized aortic root. Pericardium/Pleural No pericardial effusion. MMode/2D Measurements & Calculations LVIDd: 5.3 cm IVSd: 0.89 cm Ao root diam: 3.0 cm LVIDs: 4.5 cm LVPWd: 1.0 cm FS: 14.9 % LAV(MOD-bp): 113.5 ml LA A4 area: 30.3 cm2 LA dimension(2D): 3.9 cm LAV(MOD-bp) Indexed: 75.9 ml/m2 LAV(MOD-sp2): 97.7 ml LAV(MOD-sp4): 114.3 ml RA A4 area: 18.7 cm2 Time Measurements MV dec time: 0.31 sec Doppler Measurements & Calculations MV E max mitch: 136.8 cm/sec Lat Peak E' Mitch: 3.3 cm/sec Med Peak E' Mitch: 9.1 cm/sec MV A max mitch: 52.4 cm/sec E/E' lat: 41.6 E/E' med: 15.0 MV E/A: 2.6 MV V2 max: 139.6 cm/sec Ao V2 max: 172.3 cm/sec LV V1 max: 116.7 cm/sec MV max P.8 mmHg Ao max P.9 mmHg LV V1 max P.4 mmHg MV V2 mean: 70.4 cm/sec MV mean P.4 mmHg MV V2 VTI: 29.8 cm TR max mitch: 204.5 cm/sec TR max P.1 mmHg Interpretation Summary The study was technically difficult. Mildly dilated left ventricle. Severe global left ventricular systolic dysfunction. The estimated ejection fraction is 25 %. The left atrium is moderately enlarged. Stable appearing mechanical mitral valve apparatus. Trivial transvalvular insufficiency of the mitral valve. Mild to moderate (1-2+) tricuspid valve insufficiency. Right ventricular systolic pressure estimated to be 23 mmHg. Transmitral diastolic flow velocities suggest diastolic dysfunction (pseudonormal pattern). ICD or pacer leads identified within the right atrium ICD or pacer leads identified within the right ventricle. Ordering Physician: Artemio Herrera Referring Physician: Roime Landeros Chi Performed By: Zena Page, JOSE, RVT
== END ==
PROVIDERS: Family Provider Family Medicine Geriatric Medicine; PCP Family Medicine Geriatric Medicine; Referring Provider Nurse Practitioner Family; Visit Provider Nurse Practitioner Family
DX: I50.22 Chronic systolic (congestive) heart failure (principal); Z95.2 Presence of prosthetic heart valve
CPT/HCPCS: 93306

== ENCOUNTER 2018-09-30 13:47 | Outpatient (RCR) | payer MEDICARE, OTHER, SELFPAY ==
[2018-08-03 14:19] VITALS: BMI 20.5
[2018-09-30 14:01] LABS: Prothrombin Time Fingerstick 35.2 SEC (11.9-14.4)
== END 2018-10-15 14:24 | disposition home or self-care (01) ==
LOC: MTLAB 13:47
PROVIDERS: Family Provider Family Medicine Geriatric Medicine; PCP Family Medicine Geriatric Medicine; Referring Provider Internal Medicine Cardiovascular Disease; Visit Provider Internal Medicine Cardiovascular Disease
DX: I48.91 Unspecified atrial fibrillation (principal); Z79.01 Long term (current) use of anticoagulants
CPT/HCPCS: 36416; 85610

== ENCOUNTER 2018-10-28 13:52 | Outpatient (RCR) | payer MEDICARE, OTHER, SELFPAY ==
[2018-08-03 14:19] VITALS: BMI 20.5
[2018-10-28 14:05] LABS: Prothrombin Time Fingerstick 39.4 SEC (11.9-14.4)
== END 2018-10-28 14:00 ==
LOC: MTLAB 13:52
PROVIDERS: Family Provider Family Medicine Geriatric Medicine; PCP Family Medicine Geriatric Medicine; Referring Provider Internal Medicine Cardiovascular Disease; Visit Provider Internal Medicine Cardiovascular Disease
DX: I48.91 Unspecified atrial fibrillation (principal); Z79.01 Long term (current) use of anticoagulants
CPT/HCPCS: 36416; 85610

== ENCOUNTER → 2018-11-09 14:28 | Outpatient (CLI) | payer MEDICARE, OTHER, SELFPAY ==
[2018-08-03 14:19] VITALS: BMI 20.5
[2018-11-09 15:39] LABS: Vitamin D,25 Hydroxy 67.2 ng/mL (29.95-100.01)
[2018-11-09 15:41] LABS: ALB/GLOB Ratio 1.2 RATIO (0.9-2.4); AST(SGOT) 29 U/L (15-37); Alanine Aminotransfer ALT/SGPT 25 U/L (13-56); Albumin, Serum 3.6 g/dL (3.2-5.0); Alkaline Phosphatase 121 U/L (45-117); Anion Gap 7 (5-15); BUN 32 mg/dL (7-18); BUN/Creat Ratio 33.8 RATIO (10-20); Calcium,Total 8.8 mg/dL (8.5-10.1); Chloride 102 mmol/L (98-107); Creatinine, Serum 0.95 mg/dL (0.55-1.02); EST Glomerular Filtration Rate 61 mL/min (>60); Est Glom Filt Rate - Afr Amer 74 mL/min (>60); Globulin 2.9 g/dL (2.2-4.2); Glucose 126 mg/dL (74-106); Potassium 4.6 mmol/L (3.5-5.1); Protein, Total 6.5 g/dL (6.4-8.2); Sodium Level 138 mmol/L (136-145); Thyroid Stim Hormone (TSH) 1.48 uIU/mL (0.358-3.74)
[2018-11-09 15:45] LABS: Absolute Lymphocyte Count 0.57 X10^3/ul (0.83-4.51); Absolute Neutrophil Count 3.9 X10^3/uL (2.0-7.7); Basophil# 0.01 X10^3/uL; Basophil% 0.2 % (0-1); Eosinophil# 0.08 X10^3/uL; Eosinophils% 1.6 % (0-5); Hemoglobin 11.1 g/dl (12.0-15.0); Lymphocyte # 0.57 X10^3/ul (4.0); Lymphocyte % 11.3 % (19-41); Mean Corp Hgb Conc 30.8 g/gl (32-36); Mean Corpuscular Volume 100.6 fL (81-99); Mean Platelet Vol. 11.6 fl (6.2-12.0); Monocyte# 0.49 X10^3/uL; Monocyte% 9.7 % (0-10); Neutrophil # 3.89 X10^3/uL (2.7-7.7); Neutrophil % 77.2 % (47-70); Platelet Count 135 K/mm3 (150-450); RBC Distribution Width CV 12.4 % (11.6-14.6); RBC Distribution Width SD 44.5 fl (35.1-43.9); Red Blood Count 3.58 M/mm3 (4.2-5.4)
[2018-11-09 15:46] LABS: Differential Indicated SCAN CRITERIA MET; POSITIVE COUNT NO; POSITIVE DIFFERENTIAL YES; POSITIVE MORPHOLOGY NO
[2018-11-09 15:49] LABS: Differential Comment SCANNED
== END ==
PROVIDERS: Family Provider Family Medicine Geriatric Medicine; PCP Family Medicine Geriatric Medicine; Visit Provider Family Medicine Geriatric Medicine
DX: I10 Essential (primary) hypertension (principal); E55.9 Vitamin D deficiency, unspecified
CPT/HCPCS: 36415; 80053; 82306; 84443; 85025

== ENCOUNTER → 2018-11-16 12:47 | Outpatient (CLI) | payer MEDICARE, OTHER, SELFPAY ==
[2018-08-03 14:19] VITALS: BMI 20.5
--- NOTE | 2018-11-16 12:54 | RAD_ITS ---
STUDY: SWALLOWING STUDY REASON FOR EXAM: Female, 77 years old. Dysphagia. TECHNIQUE: The examination was performed with Speech Pathology in attendance. Under fluoroscopic observation, the patient ingested thin barium, thick barium, barium pudding, and barium coated cracker. FLUOROSCOPY TIME: 2:42 minutes/seconds. 2353 spot images were obtained. RADIOLOGIST INVOLVEMENT: Radiologist was present and providing direct supervision. COMPARISON: None. FINDINGS: The following was observed during swallowing of the various mixtures of barium: Thin Barium: Transient penetration with ingestion of thin liquids. Barium Pudding: There was no evidence of aspiration or laryngeal penetration. Barium Coated Cracker: There was no evidence of aspiration or laryngeal penetration. RAD/Swallowing Function w/Video IMPRESSION: Transient penetration with ingestion of thin liquids. Prominence of the cricopharyngeus muscle. The swallow study findings were discussed with the patient by the speech pathologist at the conclusion of the examination. Please see speech pathology report for more information and recommendations. Electronically Signed: Aman Real, at 14:16 EDT , Service support ,
--- NOTE | 2018-11-16 12:55 | SP.MBSS_ITS ---
PRIMARY / SECONDARY DIAGNOSIS: dysphagia (R13.10) REFERRING PHYSICIAN: Dr. Romie Landeros MD CURRENT DIET: regular textures, thin liquids DENTITION: WFL MENTAL STATUS: WNL RESPIRATORY STATUS: O2 via room air REASON FOR REFERRAL: The Patient is a 77 year old female referred for a modified barium swallow (MBS) study to objectively assess the Patients oropharyngeal swallow function under fluoroscopy secondary to concerns for dysphagia; recently diagnosed Parkinson?s disease. MEDICAL HISTORY: Parkinson?s disease, breast cancer, esophageal reflux, chronic systolic congestive heart failure, atrial fibrillation, atrial dysrhythmia, atrial flutter, ventricular tachycardia, dilated cardiomyopathy, history of mitral valve replacement, cardiac pacemaker, chcf current use of anticoagulant, hypertension, hyperlipidemia, anxiety, type II diabetes mellitus (uncontrolled), fibromyalgia. PREVIOUS MODIFIED BARIUM SWALLOW STUDY: none ASSESSMENT PARAMETERS: The Patient participated in a Modified Barium Swallow (MBS) study on 11/16/2018. Dr. Real was the radiologist present for this evaluation. This study was recorded in the lateral view and images were sent to PACs for storage. Scoring was completed through the 8-point Penetration-Aspiration Scale (PAS) and summarized via the Modified Barium Swallow Impairment Profile (MBSImP) and Bolus Residue Scale (BRS), with severity scoring through the Dysphagia Severity Rating Scale (DSRS) and Swallowing Performance Scale (SPS), and recommended diet textures through the International Dysphagia Diet Standardisation Initiative (IDDSI). RESULTS OF THE EVALUATION: The Patient presents with swallow function grossly within normal limits (DSRS: 1-2; SPS: 2) in comparison to age matched peers. OBJECTIVE ASSESSMENT OF SWALLOW FUNCTION (QUANTITATIVE ? PER TRIAL): PENETRATION / ASPIRATION SCALE (TONEY): 1 = does not enter airway 2 = enters airway/above vocal folds/ejected 3 = enters airway/above vocal folds/not ejected 4 = enters airway/contacts vocal folds/ejected 5 = enters airway/contacts vocal folds/not ejected 6 = enters airway/below vocal folds/ejected 7 = enters airway/below vocal folds/not ejected despite effort 8 = enters airway/below vocal folds/no effort PENETRATION / ASPIRATION SCALE (SCORE): Thin liquid - 5 mL tsp.: 2 Thin liquids via cup (single sip): 1 Thin liquids via cup (single sip): 1 Thin liquids via cup (single sip): 2 Thin liquids via straw (single sip): 1 Thin liquids via straw (sequential swallows): 1 Thin liquids via straw (chin tuck): 1 Thin liquids via straw (chin tuck): 2 Thin liquids via straw (chin tuck): 1 Pudding via spoon: 1 Regular textured cookie: 1 Thin liquids via straw (chin tuck): 1 OBJECTIVE ASSESSMENT OF SWALLOW FUNCTION (QUANTITATIVE ? AGGREGATE): MODIFIED BARIUM SWALLOW IMPAIRMENT PROFILE (MBSImP) LABIAL SEAL: 0 (of 4) no labial escape TONGUE CONTROL DURING BOLUS MANIPULATION: 0 (of 3) cohesive bolus BOLUS PREPARATION / MASTICATION: 0 (of 3) timely and efficient BOLUS TRANSPORT / LINGUAL MOTION: 0 (of 4) brisk tongue motion ORAL RESIDUE: 2 (of 4) residue collection on oral structures INITIATION OF PHARYNGEAL SWALLOW: 1 (of 4) bolus head in valleculae SOFT PALATE ELEVATION: 0 (of 4) no bolus between soft palate & pharyngeal wall LARYNGEAL ELEVATION: 0 (of 3) complete superior movement ANTERIOR HYOID EXCURSION: 1 (of 2) partial anterior movement EPIGLOTTIC MOVEMENT: 0 (of 2) complete epiglottic inversion LARYNGEAL VESTIBULE CLOSURE: 1 (of 2) incomplete PHARYNGEAL STRIPPING WAVE: 0 (of 2) present / complete PE SEGMENT OPENIN (of 3) complete distension / duration; no obstruction TONGUE BASE RETRACTION: 2 (of 4) narrow column of contrast PHARYNGEAL RESIDUE: 2 (of 4) collection of residue ESOPHAGEAL BOLUS CLEARANCE: could not view BOLUS RESIDUE SCALE (BRS): 4 (of 6) residue in valleculae and pyriform sinus DYSPHAGIA SEVERITY RATING SCALE (DSRS): 1-2 (mild) SWALLOWING PERFORMANCE SCALE (SPS): 2 (WFL) OBJECTIVE ASSESSMENT OF SWALLOW FUNCTION (QUALITATIVE): ORAL PREPARATORY PHASE: oral preparatory phase marked by competent bolus manipulation without fragmented swallowing (piecemeal deglutition); sufficient oral containment; preserved management of breathing / bolus formation. ORAL TRANSITIONAL PHASE: oral transitional phase marked by competent bolus manipulation / transportation with very brief and mild undulation (wavelike motions) with no impact on bolus transitional efforts; sufficient oral clearance; sufficient oral containment across textures; PHARYNGEAL PHASE: pharyngeal phase marked by no signs of pharyngeal dyssynchrony; sufficient hyolaryngeal excursion and laryngeal vestibule closure / pressure; mild reduction in hyolaryngeal excursion per MBSImP protocol scoring, though this may lack clinically significance; sufficient / consistent laryngeal vestibule pressure generated to expel penetrated material; very mild pharyngeal dysmotility with little clinical significance; no signs of velopharyngeal impairments. ESOPHAGEAL PHASE: no obvious esophageal phase abnormalities observed. CONTRIBUTING / COMPLICATING FACTORS AND NOTABLE FINDINGS: prominent cricopharyngeal bar located at the C-5 C-6 level, no impact on pharyngoesophageal motility; noted calcification along the anterior superior laryngeal vestibule / inferior epiglottic base and anterior portions of the vocal folds at times complicating assessment of penetration / ejection. Limited benefit gleaned from execution of the chin tuck posture (appeared to demonstrate trace penetration during initial viewing, later attributed to calcifications noted above). RECOMMENDATIONS AND CONSIDERATIONS: The Patient was able to comprehend information presented upon review and express recommended intake precautions (reduced bolus volume) to suggest high likelihood of compliance. Provided a brief overview of signs and symptoms of aspiration, with recommendations for the Patient to further discuss any further symptoms with the Patients primary care physician. Would consider annual or biannual assessments of the oropharyngeal swallow function given the recent diagnosis of a progressive neurological disorder with a known correlation with dysphagia (Parkinson?s disease). 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 DIET TEXTURE RECOMMENDATIONS: Will recommend a regular textured (IDDSI: 7), thin liquid diet (IDDSI: 0) diet IMAGE COUNT: [id number] Per Bernard M.A., [facility] [employer]ER[facility] MBSImP Certified, LSVT Certified [facility] Speech-Language Pathology Department [email or web address]
== END ==
PROVIDERS: Family Provider Family Medicine Geriatric Medicine; PCP Family Medicine Geriatric Medicine; Referring Provider Family Medicine Geriatric Medicine; Visit Provider Family Medicine Geriatric Medicine
DX: R47.02 Dysphasia (principal)
CPT/HCPCS: 74230; 92611

== ENCOUNTER 2018-11-27 14:00 | Outpatient (RCR) | payer MEDICARE, OTHER, SELFPAY ==
[2018-08-03 14:19] VITALS: BMI 20.5
[2018-11-27 14:20] LABS: Prothrombin Time Fingerstick 36.2 SEC (11.9-14.4)
== END 2018-12-15 16:00 | disposition home or self-care (01) ==
LOC: MTLAB 14:00
PROVIDERS: Family Provider Family Medicine Geriatric Medicine; PCP Family Medicine Geriatric Medicine; Referring Provider Internal Medicine Cardiovascular Disease; Visit Provider Internal Medicine Cardiovascular Disease
DX: I48.91 Unspecified atrial fibrillation (principal); Z79.01 Long term (current) use of anticoagulants
CPT/HCPCS: 36416; 85610

== ENCOUNTER 2018-12-31 14:27 | Outpatient (RCR) | payer MEDICARE, OTHER, SELFPAY ==
[2018-08-03 14:19] VITALS: BMI 20.5
[2018-12-31 14:41] LABS: Prothrombin Time Fingerstick 40.1 SEC (11.9-14.4)
== END 2018-12-31 16:00 | disposition home or self-care (01) ==
LOC: MTLAB 14:27
PROVIDERS: Family Provider Family Medicine Geriatric Medicine; PCP Family Medicine Geriatric Medicine; Referring Provider Internal Medicine Cardiovascular Disease; Visit Provider Internal Medicine Cardiovascular Disease
DX: I48.91 Unspecified atrial fibrillation (principal); Z79.01 Long term (current) use of anticoagulants
CPT/HCPCS: 36416; 85610

== ENCOUNTER → 2019-01-18 | Outpatient (CLI) | payer MEDICARE, OTHER, SELFPAY ==
[2018-08-03 14:19] VITALS: BMI 20.5
[2019-01-18 14:16] LABS: Absolute Lymphocyte Count 1.01 X10^3/ul (0.83-4.51); Basophil# 0.01 X10^3/uL; Basophil% 0.2 % (0-1); Eosinophil# 0.09 X10^3/uL; Eosinophils% 1.6 % (0-5); Hematocrit 37.3 % (37-47); Hemoglobin 12.1 g/dl (12.0-15.0); Lymphocyte # 1.01 X10^3/ul (4.0); Lymphocyte % 18.1 % (19-41); Mean Corp Hgb Conc 32.4 g/gl (32-36); Mean Corpuscular Hgb 30.2 pg (27.0-32.0); Mean Platelet Vol. 10.2 fl (6.2-12.0); Monocyte# 0.42 X10^3/uL; Monocyte% 7.5 % (0-10); Neutrophil # 4.03 X10^3/uL (2.7-7.7); Neutrophil % 72.4 % (47-70); Platelet Count 165 K/mm3 (150-450); RBC Distribution Width CV 13.1 % (11.6-14.6); Red Blood Count 4.01 M/mm3 (4.2-5.4); White Blood Count 5.6 K/mm3 (4.4-11.0)
[2019-01-18 14:17] LABS: POSITIVE COUNT NO; POSITIVE DIFFERENTIAL NO; POSITIVE MORPHOLOGY NO
[2019-01-18 14:42] LABS: ALB/GLOB Ratio 1.2 RATIO (0.9-2.4); AST(SGOT) 24 U/L (15-37); Alanine Aminotransfer ALT/SGPT 9 U/L (13-56); Albumin, Serum 3.8 g/dL (3.2-5.0); Alkaline Phosphatase 107 U/L (45-117); Anion Gap 6 (5-15); BUN 30 mg/dL (7-18); BUN/Creat Ratio 30.7 RATIO (10-20); Calcium,Total 8.9 mg/dL (8.5-10.1); Chloride 97 mmol/L (98-107); Creatinine, Serum 0.98 mg/dL (0.55-1.02); EST Glomerular Filtration Rate 59 mL/min (>60); Est Glom Filt Rate - Afr Amer 71 mL/min (>60); Globulin 3.3 g/dL (2.2-4.2); Glucose 105 mg/dL (74-106); Magnesium 2.1 mg/dL (1.6-2.6); Potassium 3.7 mmol/L (3.5-5.1); Protein, Total 7.1 g/dL (6.4-8.2); Sodium Level 135 mmol/L (136-145); Thyroid Stim Hormone (TSH) 0.26 uIU/mL (0.358-3.74)
== END | disposition home or self-care (01) ==
LOC: POLAB3 13:57
PROVIDERS: Family Provider Family Medicine Geriatric Medicine; PCP Family Medicine Geriatric Medicine; Visit Provider Family Medicine Geriatric Medicine
DX: E03.9 Hypothyroidism, unspecified (principal); R11.0 Nausea; N39.0 Urinary tract infection, site not specified
CPT/HCPCS: 36415; 80053; 83735; 84443; 85025; 87086

== ENCOUNTER → 2019-01-18 | Outpatient (CLI) | payer MEDICARE, OTHER, SELFPAY ==
[2018-08-03 14:19] VITALS: BMI 20.5
--- NOTE | 2019-01-18 15:06 | CT_ITS ---
STUDY: CT BRAIN WITHOUT CONTRAST REASON FOR EXAM: Female, 78 years old. Dizziness and blurred vision for 4 months RADIATION DOSAGE (If Supplied By Facility): CTDIvol = ( 60.81 ) mGy, DLP = ( 1021.47 ) mGycm TECHNIQUE: Transaxial CT imaging of the brain was performed without administration of intravenous contrast material. Individualized dose optimization techniques were used for this CT. COMPARISON: 09/14/2014 FINDINGS: Normal soft tissue structures. 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 Normal size ventricles and extra-axial spaces for the patient's age. There are areas of decreased attenuation within the white matter tracts of the supratentorial brain, consistent with microvascular disease changes. Normal age-related changes of the basal ganglia. Normal brainstem. Normal cerebellum. There is no intracranial hemorrhage. There are no findings of an acute ischemic infarction. Normal visualized paranasal sinuses. CT/Brain/Head without Contrast IMPRESSION: No CT evidence of acute infarct or hemorrhage. If there is clinical concern for hyperacute ischemia that is not evident by CT, MRI should be considered if possible. Electronically Signed: Fran Harrison MD at 15:50 EDT Tel , Service support ,
== END | disposition home or self-care (01) ==
LOC: CT 15:04
PROVIDERS: Family Provider Family Medicine Geriatric Medicine; PCP Family Medicine Geriatric Medicine; Referring Provider Family Medicine Geriatric Medicine; Visit Provider Family Medicine Geriatric Medicine
DX: R42 Dizziness and giddiness (principal)
CPT/HCPCS: 36415; 70450; 80053; 83735; 84443; 85025; 87086; 87088

== ENCOUNTER 2019-02-08 14:30 | Outpatient (RCR) | payer MEDICARE, OTHER, SELFPAY ==
[2018-08-03 14:19] VITALS: BMI 20.5
[2019-01-27 13:52] VITALS: BMI 21.2
[2019-01-28 15:31] LABS: Prothrombin Time Fingerstick 56.2 SEC (11.9-14.4)
[2019-01-28 16:25] LABS: Prothrombin Time (Protime)PT. 46.9 SECONDS (11.7-14.9)
[2019-02-01 12:55] LABS: Prothrombin Time Fingerstick 23.3 SEC (11.9-14.4)
[2019-02-03 12:51] LABS: Prothrombin Time Fingerstick 22.9 SEC (11.9-14.4)
[2019-02-08 14:46] LABS: Prothrombin Time Fingerstick 37.1 SEC (11.9-14.4)
== END 2019-02-08 15:00 | disposition home or self-care (01) ==
LOC: MTLAB 14:30
PROVIDERS: Family Provider Family Medicine Geriatric Medicine; PCP Family Medicine Geriatric Medicine; Referring Provider Internal Medicine Cardiovascular Disease; Visit Provider Internal Medicine Cardiovascular Disease
DX: I48.91 Unspecified atrial fibrillation (principal); Z79.01 Long term (current) use of anticoagulants; Z95.2 Presence of prosthetic heart valve
CPT/HCPCS: 36415; 36416; 85610

== ENCOUNTER → 2019-03-10 14:41 | Outpatient (CLI) | payer MEDICARE, OTHER, SELFPAY ==
[2019-01-27 13:52] VITALS: BMI 21.2
--- NOTE | 2019-03-10 15:09 | VDLE_ITS ---
Reason For Study: LOCALIZED EDEMA RIGHT LEFT GSV is normal. GSV is normal. CFV is compressible, spontaneous, phasic, CFV is compressible, spontaneous, phasic, competent and demonstrates normal competent, and demonstrates normal augmentation. augmentation. FV is compressible, spontaneous, phasic, FV is compressible, spontaneous, phasic, competent and demonstrates normal competent and demonstrates normal augmentation. augmentation. POP V is compressible, spontaneous, phasic, POP V is compressible, spontaneous, phasic, competent and demonstrates normal competent and demonstrates normal augmentation. augmentation. T/P Trunk is compressible. T/P Trunk is compressible. PTV is compressible. PTV is compressible. RT PerV is compressible. LT PerV is compressible. Procedure Exam performed in department. A preliminary report was called and/or faxed to DR LANDEROS. Interpretation Summary Deep veins of the lower extremities are bilaterally patent and compressible segmentally. There is no evidence of deep vein thrombosis on either side. Valvular competence appears intact within the proximal deep venous systems bilaterally. The greater saphenous veins appear bilaterally patent and compressible segmentally. Ordering Physician: Romie Landeros Referring Physician: ROMIE LANDEROS CHI Performed By: Ashley Cordero, JOSE, RVT
[2019-03-10 15:33] LABS: Basophil# 0.02 X10^3/uL; Basophil% 0.4 % (0-1); Eosinophil# 0.06 X10^3/uL; Eosinophils% 1.1 % (0-5); Hematocrit 33.6 % (37-47); Lymphocyte # 0.57 X10^3/ul (4.0); Lymphocyte % 10.9 % (19-41); Mean Corp Hgb Conc 32.7 g/dL (32-36); Mean Corpuscular Hgb 31.1 pg (27.0-32.0); Mean Corpuscular Volume 94.9 fL (81-99); Monocyte% 9.6 % (0-10); NRBC Flagged by Analyzer 0 % (0-5); Neutrophil # 4.06 X10^3/uL (2.7-7.7); Neutrophil % 77.6 % (47-70); POSITIVE DIFFERENTIAL YES; Platelet Count 165 K/mm3 (150-450); RBC Distribution Width CV 13.3 % (11.6-14.6); RBC Distribution Width SD 46.9 fl (35.1-43.9); Red Blood Count 3.54 M/mm3 (4.2-5.4); White Blood Count 5.2 K/mm3 (4.4-11.0)
[2019-03-10 15:41] LABS: Anion Gap 5 (5-15); BUN 28 mg/dL (7-18); BUN/Creat Ratio 24.3 RATIO (10-20); Chloride 102 mmol/L (98-107); Creatinine, Serum 1.15 mg/dL (0.55-1.02); Differential Indicated SCAN CRITERIA MET; EST Glomerular Filtration Rate 49 mL/min (>60); Est Glom Filt Rate - Afr Amer 59 mL/min (>60); Glucose 123 mg/dL (74-106); Potassium 4.9 mmol/L (3.5-5.1); Sodium Level 138 mmol/L (136-145)
[2019-03-10 15:42] LABS: Prothrombin Time (Protime)PT. 39.1 SECONDS (11.7-14.9)
== END ==
PROVIDERS: Family Provider Family Medicine Geriatric Medicine; PCP Family Medicine Geriatric Medicine; Visit Provider Family Medicine Geriatric Medicine
DX: I48.0 Paroxysmal atrial fibrillation (principal); R60.0 Localized edema
CPT/HCPCS: 36415; 80048; 85025; 85610; 93970

== ENCOUNTER 2019-03-17 10:49 | Outpatient (RCR) | payer MEDICARE, OTHER, SELFPAY ==
[2019-01-27 13:52] VITALS: BMI 21.2
[2019-03-05 13:46] LABS: Prothrombin Time Fingerstick 48.8 SEC (11.9-14.4)
[2019-03-17 11:15] LABS: Prothrombin Time Fingerstick 35.5 SEC (11.9-14.4)
== END 2019-03-17 15:54 | disposition home or self-care (01) ==
LOC: MTLAB 10:49
PROVIDERS: Family Provider Family Medicine Geriatric Medicine; PCP Family Medicine Geriatric Medicine; Referring Provider Internal Medicine Cardiovascular Disease; Visit Provider Internal Medicine Cardiovascular Disease
DX: Z79.01 Long term (current) use of anticoagulants (principal); Z95.2 Presence of prosthetic heart valve
CPT/HCPCS: 36416; 85610

== ENCOUNTER 2019-03-29 14:21 | Outpatient (RCR) | payer MEDICARE, OTHER, SELFPAY ==
[2019-01-27 13:52] VITALS: BMI 21.2
[2019-03-29 14:34] LABS: Prothrombin Time Fingerstick 31.5 SEC (11.9-14.4)
== END 2019-03-29 15:21 | disposition home or self-care (01) ==
LOC: MTLAB 14:21
PROVIDERS: Family Provider Family Medicine Geriatric Medicine; PCP Family Medicine Geriatric Medicine; Referring Provider Internal Medicine Cardiovascular Disease; Visit Provider Internal Medicine Cardiovascular Disease
DX: Z79.01 Long term (current) use of anticoagulants (principal); Z95.2 Presence of prosthetic heart valve
CPT/HCPCS: 36416; 85610

== ENCOUNTER 2019-05-04 14:04 | Outpatient (RCR) | payer MEDICARE, OTHER, SELFPAY ==
[2019-01-27 13:52] VITALS: BMI 21.2
[2019-05-04 14:18] LABS: Prothrombin Time Fingerstick 35.7 SEC (11.9-14.4)
== END 2019-05-04 18:00 | disposition home or self-care (01) ==
LOC: MTLAB 14:04
PROVIDERS: Family Provider Family Medicine Geriatric Medicine; PCP Family Medicine Geriatric Medicine; Referring Provider Internal Medicine Cardiovascular Disease; Visit Provider Internal Medicine Cardiovascular Disease
DX: Z79.01 Long term (current) use of anticoagulants (principal); Z95.2 Presence of prosthetic heart valve
CPT/HCPCS: 36416; 85610

== ENCOUNTER → 2019-05-13 14:00 | Outpatient (CLI) | payer MEDICARE, OTHER, SELFPAY ==
[2019-01-27 13:52] VITALS: BMI 21.2
[2019-05-13 15:54] LABS: Absolute Lymphocyte Count 0.65 X10^3/uL (0.83-4.51); Absolute Neutrophil Count 2.8 X10^3/uL (2.0-7.7); Basophil# 0.02 X10^3/uL; Basophil% 0.5 % (0-1); Eosinophils% 2.5 % (0-5); Hematocrit 34.2 % (37-47); Lymphocyte # 0.65 X10^3/ul (4.0); Lymphocyte % 15.9 % (19-41); Mean Corp Hgb Conc 32.2 g/dL (32-36); Mean Corpuscular Hgb 30.9 pg (27.0-32.0); Mean Corpuscular Volume 96.1 fL (81-99); Mean Platelet Vol. 11.3 fl (6.2-12.0); Monocyte# 0.48 X10^3/uL; Monocyte% 11.8 % (0-10); NRBC Flagged by Analyzer 0 % (0-5); Neutrophil # 2.81 X10^3/uL (2.7-7.7); Neutrophil % 68.8 % (47-70); Platelet Count 149 K/mm3 (150-450); RBC Distribution Width SD 46.5 fl (35.1-43.9); Red Blood Count 3.56 M/mm3 (4.2-5.4); White Blood Count 4.1 K/mm3 (4.4-11.0)
[2019-05-13 16:25] LABS: ALB/GLOB Ratio 1.2 RATIO (0.9-2.4); AST(SGOT) 28 U/L (15-37); Alanine Aminotransfer ALT/SGPT 16 U/L (13-56); Albumin, Serum 3.4 g/dL (3.2-5.0); Alkaline Phosphatase 105 U/L (45-117); Anion Gap 4 (5-15); BUN 23 mg/dL (7-18); BUN/Creat Ratio 27.4 RATIO (10-20); Calcium,Total 8.5 mg/dL (8.5-10.1); Chloride 104 mmol/L (98-107); Creatinine, Serum 0.84 mg/dL (0.55-1.02); EST Glomerular Filtration Rate 70 mL/min (>60); Est Glom Filt Rate - Afr Amer 84 mL/min (>60); Globulin 2.8 g/dL (2.2-4.2); Glucose 99 mg/dL (74-106); Potassium 4.7 mmol/L (3.5-5.1); Protein, Total 6.2 g/dL (6.4-8.2); Sodium Level 139 mmol/L (136-145); Thyroid Stim Hormone (TSH) 0.13 uIU/mL (0.358-3.74)
[2019-05-13 16:49] LABS: Vitamin D,25 Hydroxy 59.6 ng/mL (29.95-100.01)
== END ==
PROVIDERS: Family Provider Family Medicine Geriatric Medicine; PCP Family Medicine Geriatric Medicine; Visit Provider Family Medicine Geriatric Medicine
DX: E55.9 Vitamin D deficiency, unspecified (principal); I10 Essential (primary) hypertension
CPT/HCPCS: 36415; 80053; 82306; 84443; 85025

== ENCOUNTER → 2019-05-14 11:47 | Outpatient (CLI) | payer MEDICARE, OTHER, SELFPAY ==
[2019-01-27 13:52] VITALS: BMI 21.2
[2019-05-14 14:47] LABS: Vitamin B12 827 pg/mL (211-911)
[2019-05-14 14:50] LABS: Thyroid Stim Hormone (TSH) 0.11 uIU/mL (0.358-3.74)
[2019-05-17 12:29] LABS: ANTINUCLEAR ANTIBODIES DIRECT Negative (Negative)
[2019-05-18 04:06] LABS: Ceruloplasmin 24.9 mg/dL (19.0-39.0)
[2019-05-18 13:49] LABS: Copper, Serum or Plasma 94 ug/dL (72-166)
== END ==
PROVIDERS: Family Provider Family Medicine Geriatric Medicine; PCP Family Medicine Geriatric Medicine; Referring Provider Psychiatry & Neurology Neurology; Visit Provider Psychiatry & Neurology Neurology
DX: R25.1 Tremor, unspecified (principal)
CPT/HCPCS: 36415; 82390; 82525; 82607; 84443; 86038

== ENCOUNTER 2019-06-01 13:45 | Outpatient (RCR) | payer MEDICARE, OTHER, SELFPAY ==
[2019-01-27 13:52] VITALS: BMI 21.2
[2019-05-21 20:19] LABS: Prothrombin Time Fingerstick 26.2 SEC (11.9-14.4)
[2019-06-01 13:56] LABS: Prothrombin Time Fingerstick 33.7 SEC (11.9-14.4)
== END 2019-06-01 18:00 | disposition home or self-care (01) ==
LOC: MTLAB 13:45
PROVIDERS: Family Provider Family Medicine Geriatric Medicine; PCP Family Medicine Geriatric Medicine; Referring Provider Internal Medicine Cardiovascular Disease; Visit Provider Internal Medicine Cardiovascular Disease
DX: I48.91 Unspecified atrial fibrillation (principal); Z79.01 Long term (current) use of anticoagulants; Z95.2 Presence of prosthetic heart valve
CPT/HCPCS: 36416; 85610

== ENCOUNTER 2019-06-29 14:00 | Outpatient (RCR) | payer MEDICARE, OTHER, SELFPAY ==
[2019-01-27 13:52] VITALS: BMI 21.2
[2019-06-18 15:31] LABS: Prothrombin Time Fingerstick 34.4 SEC (11.9-14.4)
== END 2019-06-29 18:00 | disposition home or self-care (01) ==
LOC: MTLAB 14:00
PROVIDERS: Family Provider Family Medicine Geriatric Medicine; PCP Family Medicine Geriatric Medicine; Referring Provider Internal Medicine Cardiovascular Disease; Visit Provider Internal Medicine Cardiovascular Disease
DX: I48.91 Unspecified atrial fibrillation (principal); Z79.01 Long term (current) use of anticoagulants; Z95.2 Presence of prosthetic heart valve
CPT/HCPCS: 36415; 36416; 84443; 85610

== ENCOUNTER 2019-08-09 13:12 | Outpatient (RCR) | payer MEDICARE, OTHER, SELFPAY ==
[2019-01-27 13:52] VITALS: BMI 21.2
[2019-07-28 14:01] LABS: Prothrombin Time Fingerstick 25.4 SEC (11.9-14.4)
[2019-08-09 13:25] LABS: Prothrombin Time Fingerstick 29.3 SEC (11.9-14.4)
== END 2019-08-09 18:00 | disposition home or self-care (01) ==
LOC: MTLAB 13:12
PROVIDERS: Family Provider Family Medicine Geriatric Medicine; PCP Family Medicine Geriatric Medicine; Referring Provider Internal Medicine Cardiovascular Disease; Visit Provider Internal Medicine Cardiovascular Disease
DX: Z79.01 Long term (current) use of anticoagulants (principal); Z95.2 Presence of prosthetic heart valve
CPT/HCPCS: 36416; 85610

== ENCOUNTER 2019-09-15 11:15 | Outpatient (RCR) | payer MEDICARE, OTHER, SELFPAY ==
[2019-01-27 13:52] VITALS: BMI 21.2
[2019-08-23 14:45] VITALS: BMI 21.0
[2019-09-15 11:36] LABS: Prothrombin Time Fingerstick 40.6 SEC (11.9-14.4)
== END 2019-09-15 18:00 | disposition home or self-care (01) ==
LOC: MTLAB 11:15
PROVIDERS: Family Provider Family Medicine Geriatric Medicine; PCP Family Medicine Geriatric Medicine; Referring Provider Internal Medicine Cardiovascular Disease; Visit Provider Internal Medicine Cardiovascular Disease
DX: Z79.01 Long term (current) use of anticoagulants (principal); Z95.2 Presence of prosthetic heart valve
CPT/HCPCS: 36416; 85610

== ENCOUNTER → 2019-09-15 13:30 | Outpatient (CLI) | payer MEDICARE, OTHER, SELFPAY ==
[2019-08-23 14:45] VITALS: BMI 21.0
--- NOTE | 2019-09-15 13:32 | ECHOD_ITS ---
Reason For Study: VALVE REPLACEMENT EVAL Procedure This was a 2D Doppler, Color Flow transthoracic echocardiogram. The study was technically difficult. Due to paroxsymal atrial fibrillation and left mastectomy. Unable to perform strain analysis due to arrhythmia. Exam performed in department. Left Ventricle Based upon the 2D echocardiographic images obtained there appears to be normal left ventricular size with severe global left ventricular systolic dysfunction. The estimated ejection fraction is 20 %. Unable to assess diastolic dysfunction. Right Ventricle Normal RV size. ICD or pacer leads identified within the right ventricle. Normal systolic function. Atria The left atrium is moderately enlarged. Normal right atrium. ICD or pacer leads identified within the right atrium. No doppler evidence for ASD. Mitral Valve Stable appearing mechanical mitral valve apparatus. Trivial transvalvular insufficiency of the mitral valve. Tricuspid Valve Normal tricuspid valve. Mild to moderate (1-2+) tricuspid valve insufficiency. Right ventricular systolic pressure estimated to be 27 mmHg. Aortic Valve The aortic valve is not well visualized. Pulmonic Valve The pulmonic valve is not well visualized. Great Vessels The aortic root is not well visualized. Pericardium/Pleural No pericardial effusion. MMode/2D Measurements & Calculations LVIDd: 4.4 cm IVSd: 0.97 cm LVIDs: 3.4 cm LVPWd: 0.97 cm RVDd: 3.8 cm FS: 22.2 % Doppler Measurements & Calculations MV E max elizabeth: 147.1 cm/sec MV V2 max: 140.8 cm/sec Ao V2 max: 155.2 cm/sec MV max P.9 mmHg Ao max P.7 mmHg MV V2 mean: 73.4 cm/sec MV mean P.9 mmHg MV V2 VTI: 26.3 cm LV V1 max: 112.6 cm/sec TR max elizabeth: 246.4 cm/sec LV V1 max P.1 mmHg TR max P.3 mmHg Interpretation Summary The study was technically difficult. Based upon the 2D echocardiographic images obtained there appears to be normal left ventricular size with severe global left ventricular systolic dysfunction. The estimated ejection fraction is 20 %. The left atrium is moderately enlarged. Stable appearing mechanical mitral valve apparatus. Trivial transvalvular insufficiency of the mitral valve. Mild to moderate (1-2+) tricuspid valve insufficiency. Right ventricular systolic pressure estimated to be 27 mmHg. Unable to assess diastolic dysfunction. ICD or pacer leads identified within the right atrium ICD or pacer leads identified within the right ventricle. Comment: The patient was reported as having episodes of her paroxysmal atrial dysrhythmia during the transthoracic echocardiogram examination. Ordering Physician: John Hayden Referring Physician: Romie Landeros Chi Performed By: Zena Page, RDCS, RVT
== END ==
PROVIDERS: Family Provider Family Medicine Geriatric Medicine; PCP Family Medicine Geriatric Medicine; Referring Provider Internal Medicine Cardiovascular Disease; Visit Provider Internal Medicine Cardiovascular Disease
DX: I48.0 Paroxysmal atrial fibrillation (principal); Z95.2 Presence of prosthetic heart valve
CPT/HCPCS: 36416; 85610; 93306

== ENCOUNTER 2019-10-07 15:12 | Outpatient (RCR) | payer MEDICARE, OTHER, SELFPAY ==
[2019-08-23 14:45] VITALS: BMI 21.0
[2019-09-22 13:16] LABS: Prothrombin Time Fingerstick 30.2 SEC (11.9-14.4)
[2019-10-07 15:25] LABS: Prothrombin Time Fingerstick 29.5 SEC (11.9-14.4)
== END 2019-10-07 18:00 | disposition home or self-care (01) ==
LOC: MTLAB 15:12
PROVIDERS: Family Provider Family Medicine Geriatric Medicine; PCP Family Medicine Geriatric Medicine; Referring Provider Internal Medicine Cardiovascular Disease; Visit Provider Internal Medicine Cardiovascular Disease
DX: Z79.01 Long term (current) use of anticoagulants (principal); Z95.2 Presence of prosthetic heart valve
CPT/HCPCS: 36416; 85610

== ENCOUNTER → 2019-11-10 14:00 | Outpatient (CLI) | payer MEDICARE, OTHER, SELFPAY ==
[2019-08-23 14:45] VITALS: BMI 21.0
--- NOTE | 2019-11-10 14:19 | RAD_ITS ---
STUDY: X-RAY CHEST REASON FOR EXAM: Female, 78 years old. Left sided rib pain x 2-3 months, near armt -- h.o left side mastectomy with radiation TECHNIQUE: PA and lateral views of the chest. COMPARISON: Comparison is made with prior examination May 26, 2018. FINDINGS: Left breast implant. Hyperinflation. There is no demonstrated pleural abnormality. Sternal cerclage wires are present from a prior sternotomy. Right-sided dual-chamber pacemaker is seen. Normal mediastinum and irene. Normal visualized pulmonary arteries. Normal visualized aortic arch and descending thoracic aorta. Normal visualized thoracic spine. Normal visualized ribs, clavicles, and shoulders. There is no demonstrated abnormality of the visualized soft tissue structures of the upper abdomen. RAD/Chest PA and Lateral IMPRESSION: Hyperinflation. Electronically Signed: Aman Real, at 15:44 EDT , Service support ,
[2019-11-10 14:56] LABS: Absolute Lymphocyte Count 0.97 X10^3/uL (0.83-4.51); Absolute Neutrophil Count 4.9 X10^3/uL (2.0-7.7); Basophil# 0.04 X10^3/uL; Basophil% 0.6 % (0-1); Eosinophil# 0.19 X10^3/uL; Eosinophils% 2.8 % (0-5); Hematocrit 37.8 % (37-47); Hemoglobin 12.1 g/dL (12.0-15.0); Lymphocyte # 0.97 X10^3/ul (4.0); Lymphocyte % 14.1 % (19-41); Mean Corpuscular Hgb 30.9 pg (27.0-32.0); Mean Corpuscular Volume 96.4 fL (81-99); Monocyte# 0.71 X10^3/uL; Monocyte% 10.3 % (0-10); NRBC Flagged by Analyzer 0 % (0-5); Neutrophil # 4.92 X10^3/uL (2.7-7.7); Neutrophil % 71.6 % (47-70); Platelet Count 183 K/mm3 (150-450); RBC Distribution Width CV 13.3 % (11.6-14.6); RBC Distribution Width SD 47.2 fl (35.1-43.9); Red Blood Count 3.92 M/mm3 (4.2-5.4); White Blood Count 6.9 K/mm3 (4.4-11.0)
[2019-11-10 15:06] LABS: International Normalized Ratio 3.1; Prothrombin Time (Protime)PT. 32.1 SECONDS (11.7-14.9)
[2019-11-10 15:10] LABS: Vitamin D,25 Hydroxy 57.4 ng/mL
[2019-11-10 15:16] LABS: ALB/GLOB Ratio 1.3 RATIO (0.9-2.4); AST(SGOT) 28 U/L (15-37); Alanine Aminotransfer ALT/SGPT 49 U/L (13-56); Albumin, Serum 3.6 g/dL (3.2-5.0); Alkaline Phosphatase 109 U/L (45-117); Anion Gap 5 (5-15); BUN 22 mg/dL (7-18); BUN/Creat Ratio 26.7 RATIO (10-20); Calcium,Total 8.7 mg/dL (8.5-10.1); Chloride 104 mmol/L (98-107); Creatinine, Serum 0.82 mg/dL (0.55-1.02); EST Glomerular Filtration Rate 71 mL/min (>60); Est Glom Filt Rate - Afr Amer 86 mL/min (>60); Globulin 2.7 g/dL (2.2-4.2); Glucose 90 mg/dL (74-106); Potassium 4.3 mmol/L (3.5-5.1); Protein, Total 6.3 g/dL (6.4-8.2); Sodium Level 139 mmol/L (136-145); Thyroid Stim Hormone (TSH) 0.78 uIU/mL (0.358-3.74)
== END ==
PROVIDERS: PCP Family Medicine Geriatric Medicine; Referring Provider Family Medicine Geriatric Medicine; Visit Provider Family Medicine Geriatric Medicine
DX: E55.9 Vitamin D deficiency, unspecified (principal); I10 Essential (primary) hypertension; R07.81 Pleurodynia; Z79.01 Long term (current) use of anticoagulants; Z95.2 Presence of prosthetic heart valve
CPT/HCPCS: 36415; 71046; 80053; 82306; 84443; 85025; 85610

== ENCOUNTER 2019-12-07 13:21 | Outpatient (RCR) | payer MEDICARE, OTHER, SELFPAY ==
[2019-08-23 14:45] VITALS: BMI 21.0
[2019-12-07 13:31] LABS: Prothrombin Time Fingerstick 27.1 SEC (11.9-14.4)
== END 2019-12-16 18:00 | disposition home or self-care (01) ==
LOC: MTLAB 13:21
PROVIDERS: Family Provider Family Medicine Geriatric Medicine; PCP Family Medicine Geriatric Medicine; Referring Provider Internal Medicine Cardiovascular Disease; Visit Provider Internal Medicine Cardiovascular Disease
DX: Z95.2 Presence of prosthetic heart valve (principal); Z79.01 Long term (current) use of anticoagulants
CPT/HCPCS: 36416; 85610

== ENCOUNTER 2019-12-22 13:24 | Outpatient (RCR) | payer MEDICARE, OTHER, SELFPAY ==
[2019-08-23 14:45] VITALS: BMI 21.0
[2019-12-22 13:41] LABS: Prothrombin Time Fingerstick 33.2 SEC (11.9-14.4)
== END 2019-12-22 18:00 | disposition home or self-care (01) ==
LOC: MTLAB 13:24
PROVIDERS: Family Provider Family Medicine Geriatric Medicine; PCP Family Medicine Geriatric Medicine; Referring Provider Internal Medicine Cardiovascular Disease; Visit Provider Internal Medicine Cardiovascular Disease
DX: Z95.2 Presence of prosthetic heart valve (principal); Z79.01 Long term (current) use of anticoagulants
CPT/HCPCS: 36416; 85610

== ENCOUNTER → 2020-01-17 10:22 | Outpatient (CLI) | payer MEDICARE, OTHER, SELFPAY ==
[2020-01-17 09:37] VITALS: BMI 21.9
[2020-01-17 12:22] LABS: International Normalized Ratio 3.1; Prothrombin Time (Protime)PT. 31.4 SECONDS (11.7-14.9)
[2020-01-17 12:23] LABS: Absolute Lymphocyte Count 0.47 X10^3/uL (0.83-4.51); Absolute Neutrophil Count 2.8 X10^3/uL (2.0-7.7); Basophil# 0.01 X10^3/uL; Basophil% 0.3 % (0-1); Eosinophil# 0.08 X10^3/uL; Eosinophils% 2.1 % (0-5); Hematocrit 35.7 % (37-47); Lymphocyte # 0.47 X10^3/ul (4.0); Lymphocyte % 12.3 % (19-41); Mean Corp Hgb Conc 30.8 g/dL (32-36); Mean Corpuscular Hgb 30.5 pg (27.0-32.0); Mean Corpuscular Volume 98.9 fL (81-99); Mean Platelet Vol. 11.4 fl (6.2-12.0); Monocyte# 0.44 X10^3/uL; Monocyte% 11.5 % (0-10); NRBC Flagged by Analyzer 0 % (0-5); Neutrophil % 73.3 % (47-70); POSITIVE DIFFERENTIAL YES; Platelet Count 141 K/mm3 (150-450); RBC Distribution Width CV 14.1 % (11.6-14.6); RBC Distribution Width SD 51.6 fl (35.1-43.9); Red Blood Count 3.61 M/mm3 (4.2-5.4); White Blood Count 3.8 K/mm3 (4.4-11.0)
[2020-01-17 12:27] LABS: Differential Indicated SCAN CRITERIA MET
[2020-01-17 12:56] LABS: Anion Gap 7 (5-15); BUN 24 mg/dL (7-18); BUN/Creat Ratio 28.6 RATIO (10-20); Chloride 103 mmol/L (98-107); Creatinine, Serum 0.84 mg/dL (0.55-1.02); EST Glomerular Filtration Rate 70 mL/min (>60); Est Glom Filt Rate - Afr Amer 84 mL/min (>60); Glucose 132 mg/dL (74-106); Magnesium 1.9 mg/dL (1.6-2.6); Potassium 4.2 mmol/L (3.5-5.1); Sodium Level 138 mmol/L (136-145); Thyroid Stim Hormone (TSH) 0.12 uIU/mL (0.358-3.74)
[2020-01-18 11:24] LABS: Pathologist Review Reviewed
== END ==
PROVIDERS: PCP Family Medicine Geriatric Medicine; Visit Provider Physician Assistant Medical
DX: R00.2 Palpitations (principal); I10 Essential (primary) hypertension; Z79.01 Long term (current) use of anticoagulants; Z95.2 Presence of prosthetic heart valve
CPT/HCPCS: 36415; 80048; 83735; 84443; 85025; 85610

== ENCOUNTER → 2020-01-24 10:52 | Outpatient (CLI) | payer MEDICARE, OTHER, SELFPAY ==
[2020-01-17 09:37] VITALS: BMI 21.9
== END ==
PROVIDERS: PCP Family Medicine Geriatric Medicine; Referring Provider Physician Assistant Medical; Visit Provider Physician Assistant Medical
DX: R00.2 Palpitations (principal)
CPT/HCPCS: 93225; 93226

== ENCOUNTER 2020-03-14 13:51 | Outpatient (RCR) | payer MEDICARE, OTHER, SELFPAY ==
[2019-08-23 14:45] VITALS: BMI 21.0
[2020-01-17 09:37] VITALS: BMI 21.9
[2020-02-24 14:55] LABS: Prothrombin Time Fingerstick 26.3 SEC (11.9-14.4)
[2020-03-14 14:01] LABS: Prothrombin Time Fingerstick 33.9 SEC (11.9-14.4)
== END 2020-03-14 18:00 | disposition home or self-care (01) ==
LOC: MTLAB 13:51
PROVIDERS: Family Provider Family Medicine Geriatric Medicine; PCP Family Medicine Geriatric Medicine; Referring Provider Internal Medicine Cardiovascular Disease; Visit Provider Internal Medicine Cardiovascular Disease
DX: Z95.2 Presence of prosthetic heart valve (principal); Z79.01 Long term (current) use of anticoagulants
CPT/HCPCS: 36416; 85610

== ENCOUNTER 2020-05-05 13:24 | Outpatient (RCR) | payer MEDICARE, OTHER, SELFPAY ==
[2020-01-17 09:37] VITALS: BMI 21.9
[2020-04-28 07:07] LABS: Prothrombin Time Fingerstick 26.4 SEC (11.9-14.4)
[2020-05-05 13:36] LABS: Prothrombin Time Fingerstick 30.1 SEC (11.9-14.4)
== END 2020-05-05 18:00 | disposition home or self-care (01) ==
LOC: MTLAB 13:24
PROVIDERS: Family Provider Family Medicine Geriatric Medicine; PCP Family Medicine Geriatric Medicine; Referring Provider Internal Medicine Cardiovascular Disease; Visit Provider Internal Medicine Cardiovascular Disease
DX: I48.0 Paroxysmal atrial fibrillation (principal); I48.92 Unspecified atrial flutter; Z79.01 Long term (current) use of anticoagulants
CPT/HCPCS: 36416; 85610

== ENCOUNTER → 2020-05-18 13:58 | Outpatient (CLI) | payer MEDICARE, OTHER, SELFPAY ==
[2020-04-21 14:27] VITALS: BMI 21.2
[2020-05-18 15:51] LABS: Absolute Lymphocyte Count 0.74 X10^3/uL (0.83-4.51); Basophil# 0.02 X10^3/uL; Basophil% 0.5 % (0-1); Eosinophil# 0.06 X10^3/uL; Eosinophils% 1.4 % (0-5); Hematocrit 34.6 % (37-47); Lymphocyte # 0.74 X10^3/ul (4.0); Lymphocyte % 17.5 % (19-41); Mean Corp Hgb Conc 31.8 g/dL (32-36); Mean Corpuscular Hgb 31.6 pg (27.0-32.0); Mean Corpuscular Volume 99.4 fL (81-99); Mean Platelet Vol. 10.9 fl (6.2-12.0); Monocyte# 0.43 X10^3/uL; Monocyte% 10.2 % (0-10); NRBC Flagged by Analyzer 0 % (0-5); Neutrophil # 2.97 X10^3/uL (2.7-7.7); Neutrophil % 70.2 % (47-70); Platelet Count 163 K/mm3 (150-450); RBC Distribution Width CV 12.9 % (11.6-14.6); RBC Distribution Width SD 47.3 fl (35.1-43.9); Red Blood Count 3.48 M/mm3 (4.2-5.4); White Blood Count 4.2 K/mm3 (4.4-11.0)
[2020-05-18 15:58] LABS: International Normalized Ratio 2.7; Prothrombin Time (Protime)PT. 28.2 SECONDS (11.7-14.9)
[2020-05-18 16:14] LABS: Vitamin D,25 Hydroxy 69.3 ng/mL
[2020-05-18 16:19] LABS: ALB/GLOB Ratio 1.4 RATIO (0.9-2.4); AST(SGOT) 58 U/L (15-37); Alanine Aminotransfer ALT/SGPT 48 U/L (13-56); Albumin, Serum 3.9 g/dL (3.2-5.0); Alkaline Phosphatase 144 U/L (45-117); Anion Gap 5 (5-15); BUN 35 mg/dL (7-18); BUN/Creat Ratio 37.3 RATIO (10-20); Chloride 103 mmol/L (98-107); Creatinine, Serum 0.94 mg/dL (0.55-1.02); EST Glomerular Filtration Rate 61 mL/min (>60); Est Glom Filt Rate - Afr Amer 74 mL/min (>60); Globulin 2.8 g/dL (2.2-4.2); Glucose 102 mg/dL (74-106); Potassium 4.7 mmol/L (3.5-5.1); Protein, Total 6.7 g/dL (6.4-8.2); Sodium Level 137 mmol/L (136-145); Thyroid Stim Hormone (TSH) 1.19 uIU/mL (0.358-3.74)
== END ==
PROVIDERS: PCP Family Medicine Geriatric Medicine; Visit Provider Family Medicine Geriatric Medicine
DX: I10 Essential (primary) hypertension (principal); I48.92 Unspecified atrial flutter; I48.0 Paroxysmal atrial fibrillation; Z79.01 Long term (current) use of anticoagulants; E55.9 Vitamin D deficiency, unspecified
CPT/HCPCS: 36415; 80053; 82306; 84443; 85025; 85610

== ENCOUNTER 2020-06-06 14:48 | Outpatient (RCR) | payer MEDICARE, OTHER, SELFPAY ==
[2020-04-21 14:27] VITALS: BMI 21.2
[2020-06-06 15:00] LABS: Prothrombin Time Fingerstick 39.2 SEC (11.9-14.4)
== END 2020-06-06 18:00 | disposition home or self-care (01) ==
LOC: MTLAB 14:48
PROVIDERS: Family Provider Family Medicine Geriatric Medicine; PCP Family Medicine Geriatric Medicine; Referring Provider Internal Medicine Cardiovascular Disease; Visit Provider Internal Medicine Cardiovascular Disease
DX: I48.0 Paroxysmal atrial fibrillation (principal); I48.92 Unspecified atrial flutter; Z79.01 Long term (current) use of anticoagulants
CPT/HCPCS: 36416; 85610

== ENCOUNTER 2020-06-27 13:41 | Outpatient (RCR) | payer MEDICARE, OTHER, SELFPAY ==
[2020-04-21 14:27] VITALS: BMI 21.2
[2020-06-27 13:56] LABS: Prothrombin Time Fingerstick 33.3 SEC (11.9-14.4)
== END 2020-06-27 18:00 | disposition home or self-care (01) ==
LOC: MTLAB 13:41
PROVIDERS: Family Provider Family Medicine Geriatric Medicine; PCP Family Medicine Geriatric Medicine; Referring Provider Internal Medicine Cardiovascular Disease; Visit Provider Internal Medicine Cardiovascular Disease
DX: I48.0 Paroxysmal atrial fibrillation (principal); I48.92 Unspecified atrial flutter; Z79.01 Long term (current) use of anticoagulants
CPT/HCPCS: 36416; 85610

== ENCOUNTER 2020-07-28 14:12 | Outpatient (RCR) | payer MEDICARE, OTHER, SELFPAY ==
[2020-04-21 14:27] VITALS: BMI 21.2
== END 2020-07-28 18:00 | disposition home or self-care (01) ==
LOC: MTLAB 14:12
PROVIDERS: Family Provider Family Medicine Geriatric Medicine; PCP Family Medicine Geriatric Medicine; Referring Provider Internal Medicine Cardiovascular Disease; Visit Provider Internal Medicine Cardiovascular Disease
DX: I48.0 Paroxysmal atrial fibrillation (principal); I48.92 Unspecified atrial flutter; Z79.01 Long term (current) use of anticoagulants
CPT/HCPCS: 36416; 85610

== ENCOUNTER 2020-09-05 13:39 | Outpatient (RCR) | payer MEDICARE, OTHER, SELFPAY ==
[2020-04-21 14:27] VITALS: BMI 21.2
[2020-09-05 13:51] LABS: Prothrombin Time Fingerstick 30.4 SEC (11.9-14.4)
== END 2020-09-05 18:00 | disposition home or self-care (01) ==
LOC: MTLAB 13:39
PROVIDERS: Family Provider Family Medicine Geriatric Medicine; PCP Family Medicine Geriatric Medicine; Referring Provider Internal Medicine Cardiovascular Disease; Visit Provider Internal Medicine Cardiovascular Disease
DX: I48.0 Paroxysmal atrial fibrillation (principal); I48.92 Unspecified atrial flutter; Z79.01 Long term (current) use of anticoagulants
CPT/HCPCS: 36416; 85610

== ENCOUNTER 2020-10-06 14:25 | Outpatient (RCR) | payer MEDICARE, OTHER, SELFPAY ==
[2020-04-21 14:27] VITALS: BMI 21.2
[2020-10-06 14:41] LABS: Prothrombin Time Fingerstick 35.5 SEC (11.9-14.4)
== END 2020-10-06 18:00 | disposition home or self-care (01) ==
LOC: MTLAB 14:25
PROVIDERS: Family Provider Family Medicine Geriatric Medicine; PCP Family Medicine Geriatric Medicine; Referring Provider Internal Medicine Cardiovascular Disease; Visit Provider Internal Medicine Cardiovascular Disease
DX: I48.0 Paroxysmal atrial fibrillation (principal); I48.92 Unspecified atrial flutter; Z79.01 Long term (current) use of anticoagulants
CPT/HCPCS: 36416; 85610

== ENCOUNTER → 2020-10-12 14:49 | Outpatient (CLI) | payer MEDICARE, OTHER, SELFPAY ==
[2020-04-21 14:27] VITALS: BMI 21.2
--- NOTE | 2020-10-12 14:52 | RAD_ITS ---
STUDY: X-RAY - ABDOMEN/PELVIS REASON FOR EXAM: Female, 79 years old. ABD PAIN TECHNIQUE: AP supine and upright views of the abdomen and pelvis. COMPARISON: Comparison is made with prior study dated 05/26/2000 FINDINGS: Normal visualized lung bases. There is a moderate amount of colonic fecal material is seen in the right hemicolon. There is no demonstrated free abdominal air. The visualized liver, spleen and kidneys are grossly normal in size and morphology. There are calcified phleboliths in the pelvis. There are diffuse degenerative changes of the visualized lumbar spine. RAD/Abd Inc Decub and/or Erect IMPRESSION: Moderate amount of fecal material is seen in the right hemicolon. Electronically Signed: Aman Real MD at 12:54 EST , Service support ,
--- NOTE | 2020-10-12 14:52 | RAD_ITS ---
STUDY: X-RAY - LUMBAR SPINE REASON FOR EXAM: Female, 79 years old. LOW BACK PAIN TECHNIQUE: 3 view(s) of the lumbar spine were obtained. COMPARISON: None FINDINGS: Normal lumbar lordosis. There is a minimal levoscoliosis of the lumbar spine. There is a normal alignment of the vertebrae. There is multilevel endplate spondylosis of the lumbar vertebrae. There is multi-level degenerative disc disease with multi-level disc space narrowing. There is atherosclerotic calcification of the abdominal aorta without a demonstrated aneurysm. RAD/Lumbar Spine 2 or 3 Views IMPRESSION: Degenerative changes of the spine, as detailed above. Electronically Signed: Aman Real MD at 12:54 EST , Service support ,
== END ==
PROVIDERS: PCP Family Medicine Geriatric Medicine; Referring Provider Family Medicine Geriatric Medicine; Visit Provider Family Medicine Geriatric Medicine
DX: M54.5 Low back pain (principal); R10.9 Unspecified abdominal pain; N39.0 Urinary tract infection, site not specified
CPT/HCPCS: 72100; 74019; 87086; 87088

== ENCOUNTER → 2020-10-18 15:13 | Outpatient (CLI) | payer MEDICARE, OTHER, SELFPAY ==
[2020-04-21 14:27] VITALS: BMI 21.2
== END ==
PROVIDERS: PCP Family Medicine Geriatric Medicine; Visit Provider Family Medicine Geriatric Medicine
DX: N39.0 Urinary tract infection, site not specified (principal)
CPT/HCPCS: 87086; 87088

== ENCOUNTER 2020-11-09 13:22 | Outpatient (RCR) | payer MEDICARE, OTHER, SELFPAY ==
[2020-04-21 14:27] VITALS: BMI 21.2
[2020-11-10 15:38] LABS: INR Fingerstick 2.4; Prothrombin Time Fingerstick 27.5 SEC (11.9-14.4)
== END 2020-11-09 18:00 | disposition home or self-care (01) ==
LOC: MTLAB 13:22
PROVIDERS: Family Provider Family Medicine Geriatric Medicine; PCP Family Medicine Geriatric Medicine; Referring Provider Internal Medicine Cardiovascular Disease; Visit Provider Internal Medicine Cardiovascular Disease
DX: I48.0 Paroxysmal atrial fibrillation (principal); I48.92 Unspecified atrial flutter; Z79.01 Long term (current) use of anticoagulants
CPT/HCPCS: 36416; 85610

== ENCOUNTER → 2020-11-23 12:52 | Outpatient (CLI) | payer MEDICARE, OTHER, SELFPAY ==
[2020-04-21 14:27] VITALS: BMI 21.2
[2020-11-23 16:32] LABS: Absolute Lymphocyte Count 0.88 X10^3/uL (0.83-4.51); Absolute Neutrophil Count 5.1 X10^3/uL (2.0-7.7); Basophil# 0.03 X10^3/uL; Basophil% 0.4 % (0-1); Eosinophil# 0.13 X10^3/uL; Eosinophils% 1.9 % (0-5); Hematocrit 36.9 % (37-47); Hemoglobin 11.7 g/dL (12.0-15.0); Lymphocyte # 0.88 X10^3/ul (4.0); Lymphocyte % 12.9 % (19-41); Mean Corp Hgb Conc 31.7 g/dL (32-36); Mean Corpuscular Hgb 31.4 pg (27.0-32.0); Mean Corpuscular Volume 98.9 fL (81-99); Mean Platelet Vol. 11.2 fl (6.2-12.0); Monocyte% 10.3 % (0-10); NRBC Flagged by Analyzer 0 % (0-5); Neutrophil # 5.06 X10^3/uL (2.7-7.7); Neutrophil % 74.2 % (47-70); Platelet Count 178 K/mm3 (150-450); RBC Distribution Width CV 12.7 % (11.6-14.6); RBC Distribution Width SD 46.5 fl (35.1-43.9); Red Blood Count 3.73 M/mm3 (4.2-5.4); White Blood Count 6.8 K/mm3 (4.4-11.0)
[2020-11-23 16:48] LABS: International Normalized Ratio 2.4; Prothrombin Time (Protime)PT. 25.2 SECONDS (11.7-14.9)
[2020-11-23 17:03] LABS: Vitamin D,25 Hydroxy 63.3 ng/mL
[2020-11-23 17:11] LABS: ALB/GLOB Ratio 1.4 RATIO (0.9-2.4); AST(SGOT) 32 U/L (15-37); Alanine Aminotransfer ALT/SGPT 38 U/L (13-56); Alkaline Phosphatase 106 U/L (45-117); Anion Gap 3 (5-15); BUN 29 mg/dL (7-18); BUN/Creat Ratio 37.9 RATIO (10-20); Calcium,Total 9.3 mg/dL (8.5-10.1); Chloride 102 mmol/L (98-107); Creatinine, Serum 0.77 mg/dL (0.55-1.02); EST Glomerular Filtration Rate 77 mL/min (>60); Est Glom Filt Rate - Afr Amer 93 mL/min (>60); Globulin 2.8 g/dL (2.2-4.2); Glucose 73 mg/dL (74-106); Potassium 4.8 mmol/L (3.5-5.1); Protein, Total 6.8 g/dL (6.4-8.2); Sodium Level 135 mmol/L (136-145); Thyroid Stim Hormone (TSH) 1.55 uIU/mL (0.358-3.74)
== END ==
PROVIDERS: PCP Family Medicine Geriatric Medicine; Visit Provider Family Medicine Geriatric Medicine
DX: E55.9 Vitamin D deficiency, unspecified (principal); I10 Essential (primary) hypertension; I48.92 Unspecified atrial flutter; I48.0 Paroxysmal atrial fibrillation; Z79.01 Long term (current) use of anticoagulants
CPT/HCPCS: 36415; 80053; 82306; 84443; 85025; 85610

== ENCOUNTER 2020-11-30 14:01 | Outpatient (RCR) | payer MEDICARE, OTHER, SELFPAY ==
[2020-04-21 14:27] VITALS: BMI 21.2
[2020-11-23 14:54] VITALS: BMI 21.2
[2020-11-30 14:11] LABS: INR Fingerstick 2.8; Prothrombin Time Fingerstick 31.2 SEC (11.9-14.4)
== END 2020-11-30 18:00 | disposition home or self-care (01) ==
LOC: MTLAB 14:01
PROVIDERS: Family Provider Family Medicine Geriatric Medicine; PCP Family Medicine Geriatric Medicine; Referring Provider Internal Medicine Cardiovascular Disease; Visit Provider Internal Medicine Cardiovascular Disease
DX: I48.0 Paroxysmal atrial fibrillation (principal); I48.92 Unspecified atrial flutter; Z79.01 Long term (current) use of anticoagulants
CPT/HCPCS: 36416; 85610

== ENCOUNTER 2020-12-20 15:10 | Outpatient (RCR) | payer MEDICARE, OTHER, SELFPAY ==
[2020-11-23 14:54] VITALS: BMI 21.2
[2020-12-20 15:35] LABS: INR Fingerstick 3.3; Prothrombin Time Fingerstick 35.8 SEC (11.9-14.4)
== END 2020-12-20 18:00 | disposition home or self-care (01) ==
LOC: MTLAB 15:10
PROVIDERS: Family Provider Family Medicine Geriatric Medicine; PCP Family Medicine Geriatric Medicine; Referring Provider Internal Medicine Cardiovascular Disease; Visit Provider Internal Medicine Cardiovascular Disease
DX: I48.0 Paroxysmal atrial fibrillation (principal); I48.92 Unspecified atrial flutter; Z79.01 Long term (current) use of anticoagulants
CPT/HCPCS: 36416; 85610

== ENCOUNTER → 2021-01-24 08:49 | Outpatient (CLI) | payer MEDICARE, OTHER, SELFPAY ==
[2020-04-21 14:27] VITALS: BMI 21.2
[2020-11-23 14:54] VITALS: BMI 21.2
--- NOTE | 2021-01-24 13:48 | NEURO ---
NCS and/or EMG Patient Report Ordering Doctor: Romie Landeros Chi DATE OF SERVICE: 01/24/21 Parvin Berumen presents for electrodiagnostic testing of the lower limbs. She has complaints of bilateral leg weakness and shaking. Electrodiagnostic Findings: Normal tibial and peroneal motor studies. Sensory responses are normal. Normal F-Waves are noted. Needle EMG testing shows no evidence of denervation with normal motor unit action potentials. Electrodiagnostic Assessment: This is a normal study in the lower limbs. There is no electrodiagnostic evidence for peripheral neuropathy or lumbar radiculopathy
== END ==
PROVIDERS: PCP Family Medicine Geriatric Medicine; Referring Provider Family Medicine Geriatric Medicine; Visit Provider Family Medicine Geriatric Medicine
DX: R20.0 Anesthesia of skin (principal); I48.92 Unspecified atrial flutter; I48.0 Paroxysmal atrial fibrillation; Z79.01 Long term (current) use of anticoagulants
CPT/HCPCS: 36416; 85610; 95886; 95913

== ENCOUNTER 2021-01-24 11:06 | Outpatient (RCR) | payer MEDICARE, OTHER, SELFPAY ==
[2020-11-23 14:54] VITALS: BMI 21.2
[2021-01-24 11:16] LABS: INR Fingerstick 2.9; Prothrombin Time Fingerstick 32.3 SEC (11.9-14.4)
== END 2021-01-24 18:00 | disposition home or self-care (01) ==
LOC: LAB 11:06
PROVIDERS: Family Provider Family Medicine Geriatric Medicine; PCP Family Medicine Geriatric Medicine; Referring Provider Internal Medicine Cardiovascular Disease; Visit Provider Internal Medicine Cardiovascular Disease
DX: I48.0 Paroxysmal atrial fibrillation (principal); I48.92 Unspecified atrial flutter; Z79.01 Long term (current) use of anticoagulants
CPT/HCPCS: 36416; 85610

== ENCOUNTER → 2021-02-06 16:27 | Outpatient (CLI) | payer MEDICARE, OTHER, SELFPAY ==
[2021-01-29 10:47] VITALS: BMI 21.0
--- NOTE | 2021-02-06 16:49 | CT_ITS ---
STUDY: CT CERVICAL SPINE WITHOUT CONTRAST REASON FOR EXAM: Female, 80 years old. Neck Pain RADIATION DOSAGE (If Supplied By Facility): CTDIvol = ( 15.10 ) mGy, DLP = ( 787.31 ) mGycm TECHNIQUE: High resolution transaxial imaging was performed without contrast material. Sagittal and coronal images were reconstructed. Individualized dose optimization techniques were used for this CT. COMPARISON: 06/20/2016 CT cervical spine. FINDINGS: Normal craniovertebral junction. There are degenerative changes of the anterior atlantoaxial articulation. Normal odontoid process. There is straightening of the normal cervical lordosis. Normal vertebral bodies and posterior osseous elements. C2-3: There is disc space narrowing facet arthropathy mild to moderate right neural foraminal narrowing no significant central stenosis. C3-4: There is mild disc space narrowing and anterior posterior spondylosis mild neural foraminal narrowing, no significant central stenosis. C4-5: There is anterior and posterior spondylosis mild broad disc osteophyte complex minimal neural foramina narrowing mild central stenosis. C5-6: There is anterior and posterior osteophytosis producing osteophyte with mild to moderate left neural foraminal narrowing without central stenosis. There is visualized calcification of the left vertebral artery. C6-7: There is disc space narrowing broad disc osteophyte [id number] neural foramina narrowing. Central stenosis. C7-T1: There is spondylosis.. Normal disc height and morphology. Normal central canal and intervertebral neuroforamina. There is atherosclerotic disease of the vertebral arteries and the carotid bulbs. CT/Spine Cervical without Contras IMPRESSION: Multilevel degenerative changes, as described above. No visualized acute fracture. Electronically Signed: Renita Salinas MD at 1:06 EDT Tel , Service support ,
--- NOTE | 2021-02-06 17:01 | CT_ITS ---
STUDY: CT LUMBAR SPINE WITHOUT CONTRAST REASON FOR EXAM: Female, 80 years old. Low Back Pain RADIATION DOSAGE (If Supplied By Facility): CTDIvol = ( 15.10 ) mGy, DLP = ( 787.31 ) mGycm TECHNIQUE: The patient was scanned in a multi detector CT scanner. High resolution transaxial imaging was performed. Images were obtained from t 12 to sacrum. Sagittal and coronal images were reconstructed. Individualized dose optimization techniques were used for this CT. COMPARISON: Lumbar spine x-ray 10/12/2020, 08/01/2017 CT abdomen and pelvis FINDINGS: Normal lumbar lordosis. There is no substantial scoliosis. The bones are osteopenic. L1-2: There is a left lateral disc osteophyte there is mild left neural foramina narrowing. Normal disc height and morphology. Normal bilateral facet joints. Normal central canal and bilateral lateral recesses. Normal bilateral intervertebral neural foramina. L2-3: There is disc space narrowing. There is a left lateral disc osteophyte, moderate left neural foramina narrowing mild to moderate central stenosis. L3-4: There is disc space narrowing broad disc osteophyte [id number] neural foraminal narrowing without central stenosis. Ligamentum flavum hypertrophy facet arthropathy. L4-5: There is disc space narrowing and broad disc osteophyte and moderate neural foramina narrowing mild to moderate central stenosis. Facet arthropathy. L5-S1: There is minimal spondylosis. Normal disc height and morphology. Normal bilateral facet joints. Normal central canal and bilateral lateral recesses. Normal bilateral intervertebral neural foramina. There is degenerative change in the SI joints. There is atherosclerotic disease of the aorta. CT/Spine Lumbar without Contrast IMPRESSION: Multilevel degenerative change of the thoracolumbar spine with multilevel neural foramina narrowing. Yiop-uq-[id number] central stenosis L4-L5, slightly worse in prior study. Electronically Signed: Renita Salinas MD at 5:53 EDT Tel , Service support ,
[2021-02-06 17:30] LABS: International Normalized Ratio 2.5; Prothrombin Time (Protime)PT. 26.4 SECONDS (11.7-14.9)
[2021-02-06 18:16] LABS: Vitamin B12 1335 pg/mL (211-911)
[2021-02-06 18:19] LABS: Erythrocyte Sedimentation Rate 2 mm/hr (0-30)
[2021-02-06 18:54] LABS: ALB/GLOB Ratio 1.3 RATIO (0.9-2.4); AST(SGOT) 25 U/L (15-37); Alanine Aminotransfer ALT/SGPT 28 U/L (13-56); Albumin, Serum 3.9 g/dL (3.2-5.0); Alkaline Phosphatase 104 U/L (45-117); Anion Gap 3 (5-15); BUN 30 mg/dL (7-18); BUN/Creat Ratio 34.5 RATIO (10-20); CPK Total, Creatine Kinase 53 U/L (26-192); Calcium,Total 8.9 mg/dL (8.5-10.1); Chloride 101 mmol/L (98-107); Creatinine, Serum 0.87 mg/dL (0.55-1.02); EST Glomerular Filtration Rate 67 mL/min (>60); Est Glom Filt Rate - Afr Amer 81 mL/min (>60); Glucose 124 mg/dL (74-106); Potassium 4.8 mmol/L (3.5-5.1); Protein, Total 6.9 g/dL (6.4-8.2); Sodium Level 135 mmol/L (136-145); Thyroid Stim Hormone (TSH) 1.42 uIU/mL (0.358-3.74)
[2021-02-08 19:44] LABS: ANTINUCLEAR ANTIBODIES DIRECT Negative (Negative)
[2021-02-12 03:06] LABS: Aldolase 4.4 U/L (3.3-10.3); Free Kappa Light Chains 17.2 mg/L (3.3-19.4); Free Lambda Light Chains 10.9 mg/L (5.7-26.3); Vitamin B1, Thiamine 173.3 nmol/L (66.5-200.0)
[2021-02-15 14:49] LABS: Myoglobin, Serum 34 ng/mL (25-58)
== END ==
PROVIDERS: PCP Family Medicine Geriatric Medicine; Referring Provider Psychiatry & Neurology Neurology; Visit Provider Psychiatry & Neurology Neurology
DX: M54.5 Low back pain (principal); M54.2 Cervicalgia; G62.9 Polyneuropathy, unspecified; R53.1 Weakness; G72.9 Myopathy, unspecified; Z86.79 Personal history of other diseases of the circulatory system
CPT/HCPCS: 36415; 72125; 72131; 80053; 82085; 82550; 82607; 82746; 83874; 83883; 84425; 84443; 85610; 85652; 86038; 86225; 86235

== ENCOUNTER 2021-03-02 15:53 | Emergency (ER) | payer MEDICARE, OTHER, SELFPAY ==
[2021-02-07 15:14] VITALS: BMI 21.8
[2021-03-02 15:53] VITALS: BP 163/70; PULSE 73; RESP 16; TEMP 37.1; O2SAT 98; BMI 22.4
--- NOTE | 2021-03-02 16:21 | EKG12_ITS ---
Test Reason : PALPS Blood Pressure : / mmHG Vent. Rate : 073 BPM Atrial Rate : 069 BPM P-R Int : 210 ms QRS Dur : 102 ms QT Int : 378 ms P-R-T Axes : 000 -57 -32 degrees QTc Int : 416 ms Atrial-paced rhythm with prolonged AV conduction Left axis deviation Septal infarct , age undetermined Inferior infarct , age undetermined Abnormal ECG Confirmed by ANGIE WEAVER, LORENA ([id number]), health editor SARAI GONG ([id number]) on 03/05/2021 9:57:24 AM Referred By: NELLA Confirmed By:TEETEE ADAMS MD
[2021-03-02 16:37] VITALS: O2SAT 99
--- NOTE | 2021-03-02 16:41 | CT_ITS ---
STUDY: CT ABDOMEN AND PELVIS WITH CONTRAST REASON FOR EXAM: Female, 80 years old. abd pain RADIATION DOSAGE (If Supplied By Facility): CTDIvol = ( 15.87 ) mGy, DLP = ( 391.64 ) mGycm TECHNIQUE: Transaxial images were obtained from the dome of the diaphragm to the symphysis pubis without oral contrast. IV 100mL Isovue-300 was administered. Sagittal and coronal images were reconstructed. Individualized dose optimization techniques were used for this CT. COMPARISON: Prior abdomen and pelvic CT exam 08/01/2017 FINDINGS: No acute changes at the lung bases. Right ventricular ICD present. Calcified right breast prosthesis included in the [id number]. Normal liver. Normal gallbladder and extrahepatic biliary system. Normal spleen. Normal pancreas. Normal bilateral adrenal glands. Ptotic but otherwise normal right kidney without hydronephrosis or stones. Stable small cyst of the left kidney. Otherwise normal left kidney without hydronephrosis or stones. Nondistended stomach. Mild diffuse increase in nondependent bowel gas in colon and small bowel. Negative for substantial distention of the small bowel or colon. The appendix is visualized and appears normal. There is diffuse atherosclerotic calcification of the abdominal aorta, without a demonstrated aneurysm. Mildly distended inferior vena cava and hepatic veins. Normal retroperitoneum. Normal urinary bladder. Negative for pelvic mass or free fluid of the pelvis. Normal abdominal wall. Demineralized osseous structures with degenerative changes. Old mild superior endplate compression deformity of T12 but has occurred since 2017 CT/Abdomen/Pelvis W IV Cont ONLY IMPRESSION: Negative for bowel obstruction, perforation or inflammatory bowel changes. A normal appendix is identified. There is a generalized mild increase in nondependent gas in the colon and small bowel consistent with a nonobstructed ileus pattern. Mild distention of the inferior vena cava and hepatic veins with otherwise unremarkable liver, spleen and pancreas. Nondistended gallbladder. Stable cyst of the left kidney. No acute renal findings. Negative for hydronephrosis or stones. Unremarkable urinary bladder negative for pelvic mass or free fluid in the pelvis. Atherosclerotic changes of the aorta without aneurysm. Old superior endplate compression deformity of T12. This has occurred since the prior exam of 2016. Electronically Signed: Barb Lopez MD at 18:08 EDT , Service support ,
--- NOTE | 2021-03-02 16:43 | ED.VIS.CHEST ---
HPI History of Present Illness Chief Complaint: Chest Pain Detail of Chief Complaint: Abdominal pain also. Informant: patient Onset/Context/Timing Onset: Days Timing: Intermittent Quality: Positive for Burning Location: Right Parasternal and Left Parasternal Current Severity: Mild Maximum Severity: Mild Worsened By: Nothing; Not Worsened By Exertion Relieved By: Not Relieved By Nothing Associated Symptoms: Negative for Nausea, Vomiting, Diaphoresis, Dyspnea, Cough, Fever and Lightheadedness Narrative Narrative: 80-year-old female seems slightly anxious. States she has had abdominal pain diffusely for the last 10 days. She states since Friday she has had burning chest pain. Denies any vomiting. Denies any melena. No fever. No diaphoresis. States she was constipated before today but denied a bowel movement prior to arrival. She denies any exertional chest pain or exertional shortness of breath. She denies any melena. She has no change with food. No recent hospitalizations. She is currently on blood thinner Coumadin for history of A. fib. Prior Similar Symptoms: No Recent Illness/Hospitalization: No CVD Risk Factors: Negative for Diabetes and Smoking PE Risk Factors: Negative for Recent Travel/Surgery, Recent Immobilization, Prior DVT or PE, Cancer and OCP + Smoking + >/=35 TAD Risk Factors: Negative for Marfan's Syndrome and Hypertension [facility] Medical History (Updated 03/02/21 @ 18:[address] 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 tachycardia Paroxysmal atrial fibrillation Paroxysmal atrial flutter Ventricular tachycardia Home Medications tramadol 50 mg PO BID PRN 03/28/15 [History Last Taken 04/01/18] aspirin 81 mg PO DAILY@0800 08/01/17 [History Last Taken 04/01/18] multivitamin 1 ea PO DAILY 08/01/17 [History Last Taken 04/01/18] sacubitril 97 mg-valsartan 103 mg tablet 1 tab PO BID 08/03/18 [History Last Taken Unknown] warfarin 5 mg tablet 5 mg PO DAILY #90 tab 04/03/20 [Rx Last Taken Unknown] pravastatin 20 mg tablet 20 mg PO QHS #90 tab 08/24/20 [Rx Last Taken Unknown] cholecalciferol (vitamin D3) 50 mcg (2,000 unit) capsule 50 mcg PO DAILY 01/24/21 [History Last Taken Unknown] thyroid (pork) 30 mg tablet 30 mg PO DAILY tab 01/29/21 [History Last Taken Unknown] acetaminophen 650 mg tablet,extended release 650 mg PO DAILY PRN tab 02/07/21 [History Last Taken Unknown] carvedilol 12.5 mg tablet 12.5 mg PO BID 02/07/21 [History Last Taken Unknown] primidone 25 mg PO BID 03/02/21 [History Last Taken Unknown] warfarin 1 mg PO TH 03/02/21 [History Last Taken Unknown] Allergy/AdvReac Type Severity Reaction Status Date / Time levothyroxine Allergy Unknown Unknown Verified 03/02/21 15:59 levothyroxine sodium Allergy Unknown Unknown Verified 03/02/21 15:59 [From Unithroid] HERMILO Inhibitors Allergy Unknown Verified 03/02/21 15:59 amiodarone Allergy Unknown Verified 03/02/21 15:59 Iodinated Contrast Media AdvReac I JUMP Verified 03/02/21 15:59 [CONTRASTS] AROUND ON THE TABLE iodine AdvReac I JUMP Verified 03/02/21 15:59 AND FLOP AROUND ON THE TABLE Family History Father Hypertension Cancer Mother Cancer Hypertension Surgical History History of breast implant History of knee surgery History of mastectomy History of mitral valve replacement (~06/1997) History of tonsillectomy and adenoidectomy Presence of implantable cardioverter-defibrillator (ICD) Social History Smoking Status: Never smoker alcohol intake: never caffeine: No EXAM Physical Exam Narrative Exam Narrative: Only female vital signs stable afebrile. Seems slightly anxious. HEENT exam unremarkable. Neck nontender no lymphadenopathy. Lungs clear to auscultation bilaterally. Heart regular rhythm no murmur rate about 70. Abdomen soft mildly diffusely tender. No peritoneal signs. No signs of obstruction. Positive bowel sounds. Moving all 4 extremities. Calves nontender. Neurologically awake alert no focal deficits. Back nontender. Const Vital Signs: 03/02/21 15:53 03/02/21 16:08 03/02/21 16:37 Temperature 98.7 F Temperature Source Oral Pulse Rate 73 Respiratory Rate 16 Respiratory Effort Normal Non-Labored Respiratory Pattern Normal Blood Pressure 163/70 H Blood Pressure Mean 101 Pulse Ox 98 99 Oxygen Delivery Method Room Air Room Air 03/02/21 17:16 03/02/21 18:32 Temperature Temperature Source Pulse Rate 70 78 Respiratory Rate 17 16 Respiratory Effort Respiratory Pattern Blood Pressure 171/67 H 130/53 H Blood Pressure Mean 101 78 Pulse Ox 99 97 Oxygen Delivery Method Room Air Room Air Positive well nourished and well developed General Appearance ED: well developed and NAD HEENT Reports moist mucous membranes normocephalic and atraumatic; Negative for trauma or tenderness Eyes PERRL and EOMs intact bilaterally General Eye ED: Negative for pale conjunctiva or scleral icterus Neck no lymphadenopathy, supple and no JVD General: Negative for tenderness Chest Wall inspection of chest normal and palpation of chest normal Resp normal respiratory effort and clear to auscultation bilaterally Effort and Inspection: respiratory distress Auscultation: Negative for rales, rhonchi or wheezes Cardio regular rate, regular rhythm, S1 normal heart sound, S2 normal heart sound and no murmurs GI soft to palpation and no masses; Negative for non-tender or non-distended GI Narrative: Mildly distended and diffusely tender but no peritoneal signs. No pulsatile mass. Back/Spine no CVA tenderness and no thoracic nor lumbar tenderness General Back: Negative for CVA tenderness Extremity normal to inspection General Extremety ED: Negative for edema, pulses abnormal or tenderness General Extremity: Negative for edema or pulses abnormal Neuro oriented x3 and CN's II-XII intact bilaterally Sensorium / Orientation: awake, alert, oriented to person, oriented to place and oriented to time Motor Exam: strength 5/5 throughout; Negative for strength abnormal Psych mental status grossly normal Mood & Affect: anxious Skin no rashes or lesions noted and no wounds General Skin Exam: Negative for jaundice Heart Score History: Slightly/Non-Suspicious ECG: Nonspecific Repolarization Age: >/= 65 years Risk Factors: 1 or 2 Risk Factors Troponin: </= Normal Limit Score: 4 MDM MDM MDM Narrative Medical decision making narrative: 80-year-old female with nondescript diffuse abdominal pain and atypical burning chest pain. Exam is benign. Should go through an abdominal cardiac work-up. Repeat exam at 6:40 PM patient doing well. Abdomen is benign. Clinically she looks well. I discussed with the patient and female at bedside that her labs looked really good. They are comfortable with her being discharged home. We also went over her CAT scan and chest x-ray. She will follow up with her primary care physician next week. Lab Data Attestation: I reviewed the patient's lab results. Lab results narrative: Remarkable gap is 7 creatinine 0.7. Liver enzymes are normal high-sensitivity troponin is 12. She has had this pain for several days. Lipase is normal. She is on Coumadin her INR is 2.3.CBC shows a white count of 4. Hemoglobin 11.5. Labs: Laboratory Results - last 24 hr 03/02/21 03/02/21 03/02/21 16:00 16:00 16:00 WBC 4.9 RBC 3.68 L Hgb 11.5 L Hct 36.1 L MCV 98.1 MCH 31.3 MCHC 31.9 L RDW Std Deviation 45.9 H RDW Coeff of Ana Maria 12.8 Plt Count 163 MPV 10.8 Immature Gran % (Auto) 0.400 Neut % (Auto) 72.4 H Lymph % (Auto) 12.9 L [place] % (Auto) 11.5 H Eos % (Auto) 2.2 Baso % (Auto) 0.6 Absolute Neuts (auto) 3.5 Absolute Lymphs (auto) 0.63 L Nucleated RBC % 0 PT INR Sodium 134 L Potassium 4.6 Chloride 99 Carbon Dioxide 28.0 Anion Gap 7 BUN 19 H Creatinine 0.78 Estim Creat Clear Calc 35.49 Est GFR (MDRD) Af Amer 91 Est GFR (MDRD) Non-Af 75 BUN/Creatinine Ratio 24.3 H Glucose 120 H Calcium 9.0 Total Bilirubin 0.60 Direct Bilirubin 0.23 AST 65 H ALT 61 H Alkaline Phosphatase 103 Troponin I High Sens 12.1 Total Protein 6.5 Albumin 3.8 Globulin 2.7 Lipase 03/02/21 03/02/21 16:00 17:02 WBC RBC Hgb Hct MCV MCH MCHC RDW Std Deviation RDW Coeff of Ana Maria Plt Count MPV Immature Gran % (Auto) Neut % (Auto) Lymph % (Auto) Put[place] % (Auto) Eos % (Auto) Baso % (Auto) Absolute Neuts (auto) Absolute Lymphs (auto) Nucleated RBC % PT 24.1 H INR 2.3 Sodium Potassium Chloride Carbon Dioxide Anion Gap BUN Creatinine Estim Creat Clear Calc Est GFR (MDRD) Af Amer Est GFR (MDRD) Non-Af BUN/Creatinine Ratio Glucose Calcium Total Bilirubin Direct Bilirubin AST ALT Alkaline Phosphatase Troponin I High Sens Total Protein Albumin Globulin Lipase 149 Radiography Chest X-Ray - ED: 1 View, Read by ED Physician, Heart, Lungs, Mediastinum, Bony Structures, No Acute Disease and Chronic Changes Diagnostic Testing: Radiology Impression Abdomen/Pelvis CT 03/02/21 16:41 IMPRESSION: Negative for bowel obstruction, perforation or inflammatory bowel changes. A normal appendix is identified. There is a generalized mild increase in nondependent gas in the colon and small bowel consistent with a nonobstructed ileus pattern. Mild distention of the inferior vena cava and hepatic veins with otherwise unremarkable liver, spleen and pancreas. Nondistended gallbladder. Stable cyst of the left kidney. No acute renal findings. Negative for hydronephrosis or stones. Unremarkable urinary bladder negative for pelvic mass or free fluid in the pelvis. Atherosclerotic changes of the aorta without aneurysm. Old superior endplate compression deformity of T12. This has occurred since the prior exam of 2016. Electronically Signed: Barb Lopez MD at 18:08 EDT , Service support , CAT scan read by the radiologist reviewed by me. Consistent with her exam. Rhythm Strip Rhythm Strip: Paced Rate: 73 Ectopy: None EKG Initial EKG: Attestation: I personally reviewed and interpreted this EKG as follows: Interpretation: No Acute Injury Pattern and Paced Comments: Paced rhythm rate of 73 no acute signs of MA or ischemia. Discharge Plan Triage Chief Complaint: Chest Pain ED Provider: Yuan Aquino Dx/Rx/DC Orders Clinical Impression: Anxiety states, Chest pain, Abdominal pain Instructions: Abdominal Pain, ED Chest Pain, Uncertain Cause Prescriptions: No Action sacubitril-valsartan 97-103 mg tablet 1 tab PO BID RF: 0 acetaminophen 650 mg tablet extended release 650 mg PO DAILY PRN (Reason: pain/fever) RF: 0 carvedilol 12.5 mg tablet 12.5 mg PO BID RF: 0 cholecalciferol (vitamin D3) 50 mcg (2,000 unit) capsule 50 mcg PO DAILY RF: 0 thyroid (pork) 30 mg tablet 30 mg PO DAILY RF: 0 tramadol 50 MG tablet 50 mg PO BID PRN (Reason: Pain) RF: 0 multivitamin 1 EACH tablet 1 ea PO DAILY RF: 0 aspirin 81 MG tablet,chewable 81 mg PO DAILY@0800 RF: 0 primidone 50 mg tablet 25 mg PO BID RF: 0 warfarin 1 mg tablet 1 mg PO TH RF: 0 warfarin 5 mg tablet 5 mg PO DAILY Qty: 90 RF: 3 pravastatin 20 mg tablet 20 mg PO QHS Qty: 90 RF: 3 Primary Care Provider: Romie Landeros Chi Referrals: Romie Landeros Chi, MD [Primary Care Provider] - 3-5 Days if not improving Activity Restrictions/Additional Instructions: All your lab work, chest x-ray, EKG and CAT scan the abdomen all look good today. This should progressively improve. Follow-up with your primary care physician next week if not feeling better. Return if feeling worse. Plenty of fluids, fiber and rest. Increase activity as tolerated. Disposition Disposition: Home, Self Care
[2021-03-02 16:47] LABS: Absolute Lymphocyte Count 0.63 X10^3/uL (0.83-4.51); Absolute Neutrophil Count 3.5 X10^3/uL (2.0-7.7); Basophil# 0.03 X10^3/uL; Basophil% 0.6 % (0-1); Eosinophil# 0.11 X10^3/uL; Eosinophils% 2.2 % (0-5); Hematocrit 36.1 % (37-47); Hemoglobin 11.5 g/dL (12.0-15.0); Lymphocyte # 0.63 X10^3/ul (0.83-4.51); Lymphocyte % 12.9 % (19-41); Mean Corp Hgb Conc 31.9 g/dL (32-36); Mean Corpuscular Hgb 31.3 pg (27.0-32.0); Mean Corpuscular Volume 98.1 fL (81-99); Mean Platelet Vol. 10.8 fl (6.2-12.0); Monocyte# 0.56 X10^3/uL; Monocyte% 11.5 % (0-10); NRBC Flagged by Analyzer 0 % (0-5); Neutrophil # 3.54 X10^3/uL (2.7-7.7); Neutrophil % 72.4 % (47-70); Platelet Count 163 K/mm3 (150-450); RBC Distribution Width CV 12.8 % (11.6-14.6); RBC Distribution Width SD 45.9 fl (35.1-43.9); Red Blood Count 3.68 M/mm3 (4.2-5.4); White Blood Count 4.9 K/mm3 (4.4-11.0)
[2021-03-02 16:59] LABS: Anion Gap 7 (5-15); BUN 19 mg/dL (7-18); BUN/Creat Ratio 24.3 RATIO (10-20); Chloride 99 mmol/L (98-107); Creatinine, Serum 0.78 mg/dL (0.55-1.02); EST Glomerular Filtration Rate 75 mL/min (>60); Est Glom Filt Rate - Afr Amer 91 mL/min (>60); Estimated Creatinine Clearance 35.49 ml/min; Glucose 120 mg/dL (74-106); Potassium 4.6 mmol/L (3.5-5.1); Sodium Level 134 mmol/L (136-145); Troponin-I HS 12.1 pg/mL (3.0-53.7)
[2021-03-02] MEDS: LORazepam 2 MG/ML Syringe 0.5 MG IV (16:59)
[2021-03-02 17:11] LABS: AST(SGOT) 65 U/L (15-37); Alanine Aminotransfer ALT/SGPT 61 U/L (13-56); Albumin, Serum 3.8 g/dL (3.2-5.0); Alkaline Phosphatase 103 U/L (45-117); Bilirubin, Direct 0.23 mg/dL (0.00-0.30); Globulin 2.7 g/dL (2.2-4.2); Lipase 149 U/L (73-393); Protein, Total 6.5 g/dL (6.4-8.2)
[2021-03-02 17:16] VITALS: BP 171/67; PULSE 70; RESP 17; O2SAT 99
[2021-03-02 17:32] LABS: International Normalized Ratio 2.3; Prothrombin Time (Protime)PT. 24.1 SECONDS (11.7-14.9)
--- NOTE | 2021-03-02 17:35 | RAD_ITS ---
STUDY: X-RAY CHEST REASON FOR EXAM: Female, 80 years old. chest pain TECHNIQUE: 1 view COMPARISON: Prior PA and lateral chest of 11/10/2019 FINDINGS: Lung cisneros remain generally hyperexpanded. 1 thin transverse scar in the mid left lung. Otherwise negative for new consolidation, focal atelectasis or pleural effusion. Stable mild cardiomegaly status post prior midline sternotomy. Right atrial pacemaker lead and right ventricular defibrillator lead remain in good position. Normal mediastinum and irene. Normal visualized pulmonary arteries. There is atherosclerotic calcification of the aortic arch with tortuosity. Normal visualized thoracic spine. Normal visualized ribs, clavicles, and shoulders. Calcified left breast implant. RAD/Chest 1 View (Portable) IMPRESSION: Generalized hyperexpansion and stable chronic changes without new consolidation, focal atelectasis or evidence of a substantial pleural effusion. Stable mild cardiomegaly status post prior midline sternotomy with ICD in good position. Stable atherosclerotic changes of the thoracic aorta. Electronically Signed: Barb Lopez MD at 18:43 EDT , Service support ,
[2021-03-02 18:32] VITALS: BP 130/53; PULSE 78; RESP 16; O2SAT 97
[2021-03-02 19:20] VITALS: BP 130/53; PULSE 70; RESP 16; O2SAT 95
== END 2021-03-02 19:22 | disposition home or self-care (01) ==
PROVIDERS: Emergency Provider Emergency Medicine; PCP Family Medicine Geriatric Medicine
DX: R07.9 Chest pain, unspecified (principal); F41.9 Anxiety disorder, unspecified; R10.9 Unspecified abdominal pain; I70.0 Atherosclerosis of aorta; N28.1 Cyst of kidney, acquired; Z79.01 Long term (current) use of anticoagulants; Z90.10 Acquired absence of unspecified breast and nipple; Z95.2 Presence of prosthetic heart valve; E78.5 Hyperlipidemia, unspecified; I11.0 Hypertensive heart disease with heart failure; I42.0 Dilated cardiomyopathy; I48.0 Paroxysmal atrial fibrillation; I50.22 Chronic systolic (congestive) heart failure; Z79.82 Long term (current) use of aspirin; Z85.3 Personal history of malignant neoplasm of breast; Z95.0 Presence of cardiac pacemaker
CPT/HCPCS: 71045; 74177; 80048; 80076; 83690; 84484; 85025; 85610; 93005; 99285; Q9967; A4216

== ENCOUNTER → 2021-03-06 15:09 | Outpatient (CLI) | payer MEDICARE, OTHER, SELFPAY ==
[2021-03-02 15:53] VITALS: BMI 22.4
[2021-03-06 16:27] LABS: Absolute Neutrophil Count 3.6 X10^3/uL (2.0-7.7); Basophil# 0.04 X10^3/uL; Basophil% 0.8 % (0-1); Eosinophil# 0.15 X10^3/uL; Eosinophils% 2.9 % (0-5); Hematocrit 38.3 % (37-47); Hemoglobin 12.2 g/dL (12.0-15.0); Lymphocyte % 15.4 % (19-41); Mean Corp Hgb Conc 31.9 g/dL (32-36); Mean Corpuscular Hgb 31.1 pg (27.0-32.0); Mean Corpuscular Volume 97.7 fL (81-99); Monocyte# 0.63 X10^3/uL; Monocyte% 12.1 % (0-10); NRBC Flagged by Analyzer 0 % (0-5); Neutrophil # 3.58 X10^3/uL (2.7-7.7); Neutrophil % 68.6 % (47-70); Platelet Count 196 K/mm3 (150-450); RBC Distribution Width CV 12.7 % (11.6-14.6); RBC Distribution Width SD 45.4 fl (35.1-43.9); Red Blood Count 3.92 M/mm3 (4.2-5.4); White Blood Count 5.2 K/mm3 (4.4-11.0)
[2021-03-06 16:35] LABS: International Normalized Ratio 1.9; Prothrombin Time (Protime)PT. 21.2 SECONDS (11.7-14.9)
[2021-03-06 16:53] LABS: Anion Gap 5 (5-15); BUN 18 mg/dL (7-18); BUN/Creat Ratio 19.2 RATIO (10-20); Chloride 99 mmol/L (98-107); Creatinine, Serum 0.94 mg/dL (0.55-1.02); EST Glomerular Filtration Rate 61 mL/min (>60); Est Glom Filt Rate - Afr Amer 74 mL/min (>60); Glucose 109 mg/dL (74-106); Potassium 4.5 mmol/L (3.5-5.1); Sodium Level 132 mmol/L (136-145); Thyroid Stim Hormone (TSH) 4.84 uIU/mL (0.358-3.74)
== END ==
PROVIDERS: PCP Family Medicine Geriatric Medicine; Visit Provider Family Medicine Geriatric Medicine
DX: R11.0 Nausea (principal); N39.0 Urinary tract infection, site not specified; R53.83 Other fatigue; I48.0 Paroxysmal atrial fibrillation; I48.92 Unspecified atrial flutter; Z79.01 Long term (current) use of anticoagulants; Z95.2 Presence of prosthetic heart valve; Z98.890 Other specified postprocedural states
CPT/HCPCS: 36415; 80048; 84443; 85025; 85610; 87086; 87088

== ENCOUNTER → 2021-03-08 10:18 | Outpatient (CLI) | payer MEDICARE, OTHER, SELFPAY ==
[2021-03-02 15:53] VITALS: BMI 22.4
--- NOTE | 2021-03-08 14:16 | CT_ITS ---
STUDY: CT ABDOMEN AND PELVIS WITH CONTRAST REASON FOR EXAM: Female, 80 years old. GALLBLADDER DISORDER RADIATION DOSAGE (If Supplied By Facility): CTDIvol = ( 12.30 ) mGy, DLP = ( 356.58 ) mGycm TECHNIQUE: Transaxial images were obtained from the dome of the diaphragm to the symphysis pubis without oral contrast. 100mL Isovue-[id number] was administered. Sagittal and coronal images were reconstructed. Individualized dose optimization techniques were used for this CT. COMPARISON: 03/02/2021 FINDINGS: The visualized lung bases are unremarkable. The visualized portions of the heart are within normal limits. Normal liver. Normal gallbladder and extrahepatic biliary system. Normal spleen. Normal pancreas. Normal bilateral adrenal glands. There is mild cortical atrophy of the right kidney, consistent with chronic medical renal disease. Normal left kidney. Normal visualized stomach. Normal small intestine. Normal colon. The appendix is visualized and appears normal. Normal abdominal aorta. Normal inferior vena cava. Normal retroperitoneum. Normal urinary bladder. Prominent uterus. Trace dependent free fluid. Normal abdominal wall. There are diffuse degenerative changes of the visualized lumbar spine. CT/Abdomen/Pelvis WITH Contrast IMPRESSION: No acute process is identified involving the gallbladder. Other chronic findings as above. Electronically Signed: Earnest Rojas MD at 18:48 EDT Tel , Service support ,
--- NOTE | 2021-03-08 14:28 | US_ITS ---
STUDY: ABDOMINAL ULTRASOUND - RIGHT UPPER QUADRANT REASON FOR VISIT: Female, 80 years old . Abdominal pain. TECHNIQUE: Ultrasound evaluation of the right upper quadrant was performed with real-time and static peters-scale imaging. TECHNICAL QUALITY: Adequate. COMPARISON: Comparison is made with prior ultrasound dated 08/01/2017. FINDINGS: Liver: The liver measures 12.3 cm. There is normal echogenicity of the liver. The bile ducts are within normal limits. There is hepatic color flow. The direction of portal flow is hepatopetal. There is no demonstrated mass lesion. Gallbladder: Normal distended gallbladder. The gallbladder wall measures 2.2 mm. There is a negative sonographic Nunes''s sign. There is no pericholecystic fluid. There are no gallstones. Common Bile Duct (C.B.D.): The common bile duct measures 5.7 mm. Pancreas: Normal size of the head, body and tail of the pancreas. There is increased echogenicity of the pancreas. There is no demonstrated pancreatic mass or cyst. Right Kidney: Normal size of the right kidney. The right kidney measures 8.5 cm x 4.8 cm x 4.5 cm. Normal renal cortex. The right cortex measures 1 cm. There is no demonstrated renal mass or cyst. There is no right hydronephrosis. US/Abdomen Limited IMPRESSION: Normal right upper quadrant ultrasound examination. Electronically Signed: Aman Real MD at 15:39 EDT , Service support ,
== END ==
PROVIDERS: PCP Family Medicine Geriatric Medicine; Referring Provider Family Medicine Geriatric Medicine; Visit Provider Family Medicine Geriatric Medicine
DX: R68.83 Chills (without fever) (principal); R10.9 Unspecified abdominal pain
CPT/HCPCS: 74177; 76705; 87635; C9803; Q9967; U0005; U0003

== ENCOUNTER → 2021-03-09 10:01 | Outpatient (CLI) | payer MEDICARE, OTHER, SELFPAY ==
[2021-03-02 15:53] VITALS: BMI 22.4
[2021-03-09 11:30] LABS: Anion Gap 7 (5-15); BUN 15 mg/dL (7-18); BUN/Creat Ratio 18.1 RATIO (10-20); Calcium,Total 8.4 mg/dL (8.5-10.1); Chloride 101 mmol/L (98-107); Creatinine, Serum 0.83 mg/dL (0.55-1.02); EST Glomerular Filtration Rate 70 mL/min (>60); Est Glom Filt Rate - Afr Amer 85 mL/min (>60); Glucose 136 mg/dL (74-106); Potassium 4.3 mmol/L (3.5-5.1); Sodium Level 135 mmol/L (136-145)
== END ==
PROVIDERS: PCP Family Medicine Geriatric Medicine; Visit Provider Family Medicine Geriatric Medicine
DX: E87.1 Hypo-osmolality and hyponatremia (principal)
CPT/HCPCS: 36415; 80048

== ENCOUNTER 2021-03-12 14:17 | Outpatient (RCR) | payer MEDICARE, OTHER, SELFPAY ==
[2021-02-07 15:14] VITALS: BMI 21.8
[2021-02-22 11:25] LABS: INR Fingerstick 2.2; Prothrombin Time Fingerstick 25.3 SEC (11.9-14.4)
[2021-03-12 14:46] LABS: INR Fingerstick 2.9
== END 2021-03-12 18:00 | disposition home or self-care (01) ==
LOC: LAB 14:17
PROVIDERS: Family Provider Family Medicine Geriatric Medicine; PCP Family Medicine Geriatric Medicine; Referring Provider Internal Medicine Cardiovascular Disease; Visit Provider Internal Medicine Cardiovascular Disease
DX: I48.0 Paroxysmal atrial fibrillation (principal); I48.92 Unspecified atrial flutter; Z79.01 Long term (current) use of anticoagulants; Z98.890 Other specified postprocedural states; Z95.2 Presence of prosthetic heart valve
CPT/HCPCS: 36416; 85610

== ENCOUNTER → 2021-03-19 15:48 | Outpatient (CLI) | payer MEDICARE, OTHER, SELFPAY ==
[2021-03-02 15:53] VITALS: BMI 22.4
--- NOTE | 2021-03-19 15:50 | RAD_ITS ---
STUDY: X-RAY - ABDOMEN/PELVIS REASON FOR EXAM: Female, 80 years old. Abdominal pain. TECHNIQUE: AP supine and decubitus views of the abdomen and pelvis. COMPARISON: 06/05/2018. FINDINGS: Normal visualized lung bases. There is an unremarkable bowel gas pattern with air seen to the rectum. No disproportionate dilatation. There is no demonstrated free abdominal air. The visualized liver, spleen and kidneys are grossly normal in size and morphology. Normal soft tissue structures. Osteoarthrosis of both hips. RAD/Abd Inc Decub and/or Erect IMPRESSION: No acute abnormality of the abdomen or pelvis. Electronically Signed: Franck Gupta MD at 10:55 EDT , Service support ,
== END ==
PROVIDERS: PCP Family Medicine Geriatric Medicine; Referring Provider Family Medicine Geriatric Medicine; Visit Provider Family Medicine Geriatric Medicine
DX: R10.9 Unspecified abdominal pain (principal); I48.0 Paroxysmal atrial fibrillation; I48.92 Unspecified atrial flutter; Z95.2 Presence of prosthetic heart valve; Z79.01 Long term (current) use of anticoagulants
CPT/HCPCS: 36415; 74019; 80048; 85025; 85610; 87086; 87088

== ENCOUNTER 2021-04-05 11:49 | Emergency (ER) | payer MEDICARE, OTHER, SELFPAY ==
[2021-04-05 11:49] VITALS: BP 155/70; PULSE 77; RESP 18; TEMP 36.6; O2SAT 98; BMI 21.9
--- NOTE | 2021-04-05 12:21 | EX.ED.DYSGE1 ---
HPI History of Present Illness Chief Complaint: Abd Pain Informant: patient Narrative Narrative: Patient is an 80-year-old female who presents to the emergency department for chronic abdominal issues including constipation. She has a burning sensation going up in her throat. She is also coming in for suprapubic discomfort. She has a suspicion she has a urinary tract infection. No dysuria or increased frequency. She has had UTIs before she is complaining of diffuse shakiness, diffuse abdominal discomfort. Her last bowel movement was yesterday after taking Dulcolax. She has been using suppositories and enemas. She is following with general surgery who was supposed to perform a colonoscopy at some point. Patient denies any episodes of vomiting. No fevers or chills. No chest pain or shortness of breath. Patient was seen in the emergency department last week for similar complaints. [facility] Medical History (Updated 04/05/21 @ 14:[address] 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 Melanoma 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 tachycardia Paroxysmal atrial fibrillation Paroxysmal atrial flutter Ventricular tachycardia Home Medications tramadol 50 mg PO BID PRN 03/28/15 [History Last Taken 04/01/18] aspirin 81 mg PO DAILY@0800 08/01/17 [History Last Taken 04/01/18] multivitamin 1 ea PO DAILY 08/01/17 [History Last Taken 04/01/18] sacubitril 97 mg-valsartan 103 mg tablet 1 tab PO BID 08/03/18 [History Last Taken Unknown] pravastatin 20 mg tablet 20 mg PO QHS #90 tab 08/24/20 [Rx Last Taken Unknown] cholecalciferol (vitamin D3) 50 mcg (2,000 unit) capsule 50 mcg PO DAILY 01/24/21 [History Last Taken Unknown] thyroid (pork) 30 mg tablet 30 mg PO DAILY tab 01/29/21 [History Last Taken Unknown] acetaminophen 650 mg tablet,extended release 650 mg PO DAILY PRN tab 02/07/21 [History Last Taken Unknown] primidone 25 mg PO BID 03/02/21 [History Last Taken Unknown] carvedilol 12.5 mg tablet 12.5 mg PO BID #180 tab 03/07/21 [Rx Last Taken Unknown] warfarin 5 mg tablet 5 mg PO DAILY #90 tab 04/02/21 [Rx Last Taken Unknown] dicyclomine 10 mg PO BID PRN #20 cap 04/05/21 [Rx Last Taken Unknown] Allergy/AdvReac Type Severity Reaction Status Date / Time levothyroxine Allergy Unknown Unknown Verified 04/05/21 11:53 levothyroxine sodium Allergy Unknown Unknown Verified 04/05/21 11:53 [From Unithroid] HERMILO Inhibitors Allergy Unknown Verified 04/05/21 11:53 amiodarone Allergy Unknown Verified 04/05/21 11:53 CT DYE Allergy Diarrhea Uncoded 04/05/21 11:53 Family History Father Hypertension Cancer Mother Cancer Hypertension Surgical History History of breast implant History of knee surgery History of mastectomy History of mitral valve replacement (~06/1997) History of tonsillectomy and adenoidectomy Presence of implantable cardioverter-defibrillator (ICD) Social History Smoking Status: Never smoker alcohol intake: never caffeine: No ROS ROS ED Constitutional Constitutional ED: Reports chills; Denies fever(s) Eyes Eyes: Denies change in vision ENT ENT ED: Denies epistaxis or rhinorrhea Cardiovascular Cardiovascular: Denies chest pain or palpitations Respiratory/Chest Respiratory/Chest: Denies cough, dyspnea or dyspnea on exertion Gastrointestinal Gastrointestinal: Reports abdominal pain and constipation; Denies diarrhea, melena or vomiting Genitourinary Genitourinary ED: Denies dysuria, hematuria or urinary frequency Musculoskeletal Musculoskeletal: Denies back pain or neck pain Integumentary Denies rash Neurologic Neurologic: Denies dizziness, headache(s) or weakness EXAM Physical Exam Const Vital Signs: 04/05/21 11:49 04/05/21 12:58 Temperature 97.9 F Temperature Source Temporal Pulse Rate 77 76 Respiratory Rate 18 12 Blood Pressure 155/70 H Blood Pressure Mean 98 Pulse Ox 98 Positive well nourished and well developed General Appearance ED: well developed and NAD HEENT Reports normocephalic and head/scalp atraumatic Eyes PERRL and EOMs intact bilaterally Neck supple Chest Wall inspection of chest normal Resp normal respiratory effort and clear to auscultation bilaterally Auscultation: Negative for rales, rhonchi or wheezes Cardio regular rate, regular rhythm and no murmurs GI normal to inspection, nondistended, normoactive bowel sounds and non-tender Palpation: soft; Negative for guarding or rebound tenderness present Back/Spine no CVA tenderness Extremity normal to inspection General Extremety ED: Negative for edema or tenderness General Extremity: Negative for edema Neuro Sensorium / Orientation: alert Motor Exam: strength 5/5 throughout Psych mental status grossly normal Skin no rashes or lesions noted MDM MDM MDM Narrative Medical decision making narrative: Patient presents to the ED for acute on chronic exacerbations of her abdominal pain/constipation. She is also having suprapubic discomfort. She has burning sensation in her chest with a history of reflux. We will treat her symptomatically with a GI cocktail. Will check basic lab work and urinalysis. She did have a recent CT scan of her abdomen/pelvis for the same complaint. I did review patient's previous CT scan as well as abdominal x-ray from recent ED visits. There is no acute intra-abdominal pathology noted at that time. Basic lab work was repeated. This did not show a high white blood cell count. She is not anemic. No significant electrolyte disturbance. Lipase and liver enzymes within normal limits. Urine does not show evidence of infection. She still has a benign abdominal exam. The GI cocktail did help her reflux. She does have pantoprazole to take at home. She still having abdominal discomfort. We will write a prescription for Bentyl. She does have an appointment with the general surgeon on the of this month. She is to keep his appointment. Return precautions reviewed with her. She understands and is agreeable this plan. All questions were answered. Lab Data Labs: Laboratory Results - last 24 hr 04/05/21 04/05/21 04/05/21 13:00 13:01 13:01 WBC 6.6 RBC 4.02 L Hgb 12.2 Hct 38.5 MCV 95.8 MCH 30.3 MCHC 31.7 L RDW Std Deviation 42.2 RDW Coeff of Ana Maria 12.0 Plt Count 177 MPV 10.5 Immature Gran % (Auto) 0.200 Neut % (Auto) 76.9 H Lymph % (Auto) 11.3 L Marion % (Auto) 9.9 Eos % (Auto) 1.2 Baso % (Auto) 0.5 Absolute Neuts (auto) 5.0 Absolute Lymphs (auto) 0.74 L Nucleated RBC % 0 Sodium 133 L Potassium 4.1 Chloride 97 L Carbon Dioxide 29.0 Anion Gap 7 BUN 15 Creatinine 0.83 Estim Creat Clear Calc 42.76 Est GFR (MDRD) Af Amer 85 Est GFR (MDRD) Non-Af 70 BUN/Creatinine Ratio 18.1 Glucose 144 H Calcium 9.5 Total Bilirubin 0.80 AST 28 ALT 34 Alkaline Phosphatase 111 Total Protein 6.9 Albumin 4.4 Globulin 2.5 Albumin/Globulin Ratio 1.8 Lipase 121 Urine Color Yellow Urine Clarity Sl. Cloudy Urine pH 7.0 Ur Specific Jenners 1.005 Urine Protein Negative Urine Glucose (UA) Normal Urine Ketones Negative Urine Occult Blood 25 H Urine Nitrite Negative Urine Bilirubin Negative Urine Urobilinogen Normal Ur Leukocyte Esterase 25 H Urine RBC 0-5 SEEN Urine WBC 0-5 SEEN Ur Squamous Epith Cells 0-5 SEEN Urine Bacteria 0 SEEN Urine Mucus 0 SEEN Discharge Plan Triage Chief Complaint: Abd Pain ED Provider: Williams Tsang Dx/Rx/DC Orders Clinical Impression: Abdominal pain, Acid reflux Instructions: Abdominal Pain Prescriptions: New dicyclomine 10 mg capsule 10 mg PO BID PRN (Reason: abdominal pain) Qty: 20 RF: 0 No Action sacubitril-valsartan 97-103 mg tablet 1 tab PO BID RF: 0 acetaminophen 650 mg tablet extended release 650 mg PO DAILY PRN (Reason: pain/fever) RF: 0 cholecalciferol (vitamin D3) 50 mcg (2,000 unit) capsule 50 mcg PO DAILY RF: 0 thyroid (pork) 30 mg tablet 30 mg PO DAILY RF: 0 tramadol 50 MG tablet 50 mg PO BID PRN (Reason: Pain) RF: 0 multivitamin 1 EACH tablet 1 ea PO DAILY RF: 0 aspirin 81 MG tablet,chewable 81 mg PO DAILY@0800 RF: 0 primidone 50 mg tablet 25 mg PO BID RF: 0 pravastatin 20 mg tablet 20 mg PO QHS Qty: 90 RF: 3 carvedilol 12.5 mg tablet 12.5 mg PO BID Qty: 180 RF: 3 warfarin 5 mg tablet 5 mg PO DAILY Qty: 90 RF: 3 Primary Care Provider: Romie Landeros Chi Referrals: Romie Landeros Chi, MD [Primary Care Provider] - Activity Restrictions/Additional Instructions: Please follow-up with your general surgeon as soon as possible. Disposition Disposition: Home, Self Care
[2021-04-05 12:58] VITALS: PULSE 76; RESP 12
[2021-04-05] MEDS: Mag Hydrox/Al Hydrox/Simeth 30 ML UDC PO (13:04)
[2021-04-05 13:15] LABS: Absolute Lymphocyte Count 0.74 X10^3/uL (0.83-4.51); Basophil# 0.03 X10^3/uL; Basophil% 0.5 % (0-1); Eosinophil# 0.08 X10^3/uL; Eosinophils% 1.2 % (0-5); Hematocrit 38.5 % (37-47); Hemoglobin 12.2 g/dL (12.0-15.0); Lymphocyte # 0.74 X10^3/ul (0.83-4.51); Lymphocyte % 11.3 % (19-41); Mean Corp Hgb Conc 31.7 g/dL (32-36); Mean Corpuscular Hgb 30.3 pg (27.0-32.0); Mean Corpuscular Volume 95.8 fL (81-99); Mean Platelet Vol. 10.5 fl (6.2-12.0); Monocyte# 0.65 X10^3/uL; Monocyte% 9.9 % (0-10); NRBC Flagged by Analyzer 0 % (0-5); Neutrophil # 5.04 X10^3/uL (2.7-7.7); Neutrophil % 76.9 % (47-70); Platelet Count 177 K/mm3 (150-450); RBC Distribution Width SD 42.2 fl (35.1-43.9); Red Blood Count 4.02 M/mm3 (4.2-5.4); White Blood Count 6.6 K/mm3 (4.4-11.0)
[2021-04-05 13:32] LABS: ALB/GLOB Ratio 1.8 RATIO (0.9-2.4); AST(SGOT) 28 U/L (15-37); Alanine Aminotransfer ALT/SGPT 34 U/L (13-56); Albumin, Serum 4.4 g/dL (3.2-5.0); Alkaline Phosphatase 111 U/L (45-117); Anion Gap 7 (5-15); BUN 15 mg/dL (7-18); BUN/Creat Ratio 18.1 RATIO (10-20); Calcium,Total 9.5 mg/dL (8.5-10.1); Chloride 97 mmol/L (98-107); Creatinine, Serum 0.83 mg/dL (0.55-1.02); EST Glomerular Filtration Rate 70 mL/min (>60); Est Glom Filt Rate - Afr Amer 85 mL/min (>60); Estimated Creatinine Clearance 42.76 ml/min; Globulin 2.5 g/dL (2.2-4.2); Glucose 144 mg/dL (74-106); Lipase 121 U/L (73-393); Potassium 4.1 mmol/L (3.5-5.1); Protein, Total 6.9 g/dL (6.4-8.2); Sodium Level 133 mmol/L (136-145)
[2021-04-05 14:15] LABS: Bacteria 0 SEEN /hpf (None Seen); Mucous, Urine 0 SEEN /hpf (<or=2+)
[2021-04-05 14:16] LABS: Color, Urine Yellow (Yellow); Glucose, Dipstick Normal (Normal); Ketone-Dipstick Negative (Negative); Leukocyte Esterase-Dipstick 25 /ul (Negative); Nitrite-Dipstick Negative (Negative); Occult Blood-Urine 25 /ul (Negative); Protein-Dipstick Negative (Negative); Specific Gravity, Urine 1.005 (1.002-1.030); Urine Bilirubin Dipstick Negative (Negative); Urine Clarity Sl. Cloudy (Clear); Urine Urobilinogen Normal (Normal)
[2021-04-05 14:25] LABS: Red Blood Cells-Urine 0-5 SEEN /hpf (0-5); Squamous Epithelial Cells - UA 0-5 SEEN /hpf (5-10); White Blood Cells 0-5 SEEN /hpf (0-5)
[2021-04-05 15:41] VITALS: BP 121/74; PULSE 89; RESP 20; O2SAT 99
--- NOTE | 2021-04-05 15:41 | ED.RN ---
THIS NURSE REVIEWED D/C INSTRUCTIONS WITH PT. PT VERBALIZED UNDERSTANDING OF INSTRUCTIONS. IV D/C. IV CATHETER INTACT. PT TOLERATED WELL. PT DENIES FURTHER NEEDS OR QUESTIONS AT THIS TIME
== END 2021-04-05 15:42 | disposition home or self-care (01) ==
PROVIDERS: Emergency Provider Emergency Medicine; PCP Family Medicine Geriatric Medicine
DX: R10.9 Unspecified abdominal pain (principal); K21.9 Gastro-esophageal reflux disease without esophagitis; E78.5 Hyperlipidemia, unspecified; I11.0 Hypertensive heart disease with heart failure; I42.0 Dilated cardiomyopathy; I48.0 Paroxysmal atrial fibrillation; I50.22 Chronic systolic (congestive) heart failure; K59.00 Constipation, unspecified; Z79.01 Long term (current) use of anticoagulants; Z79.82 Long term (current) use of aspirin; Z85.3 Personal history of malignant neoplasm of breast; Z87.440 Personal history of urinary (tract) infections; Z95.0 Presence of cardiac pacemaker; I48.92 Unspecified atrial flutter; Z95.2 Presence of prosthetic heart valve
CPT/HCPCS: 36416; 80053; 81001; 83690; 85025; 85610; 99283; A4216

== ENCOUNTER 2021-04-09 14:09 | Outpatient (RCR) | payer MEDICARE, OTHER, SELFPAY ==
[2021-03-19 16:02] LABS: Absolute Neutrophil Count 4.1 X10^3/uL (2.0-7.7); Basophil# 0.03 X10^3/uL; Basophil% 0.6 % (0-1); Eosinophil# 0.09 X10^3/uL; Eosinophils% 1.7 % (0-5); Hematocrit 33.9 % (37-47); Hemoglobin 10.8 g/dL (12.0-15.0); Lymphocyte % 11.1 % (19-41); Mean Corp Hgb Conc 31.9 g/dL (32-36); Mean Corpuscular Hgb 30.9 pg (27.0-32.0); Mean Corpuscular Volume 97.1 fL (81-99); Mean Platelet Vol. 10.1 fl (6.2-12.0); Monocyte# 0.56 X10^3/uL; Monocyte% 10.4 % (0-10); NRBC Flagged by Analyzer 0 % (0-5); Neutrophil % 75.6 % (47-70); POSITIVE DIFFERENTIAL YES; Platelet Count 198 K/mm3 (150-450); RBC Distribution Width CV 12.6 % (11.6-14.6); RBC Distribution Width SD 44.7 fl (35.1-43.9); Red Blood Count 3.49 M/mm3 (4.2-5.4); White Blood Count 5.4 K/mm3 (4.4-11.0)
[2021-03-19 16:04] LABS: Differential Indicated SCAN CRITERIA MET
[2021-03-19 16:11] LABS: Prothrombin Time (Protime)PT. 22.2 SECONDS (11.7-14.9)
[2021-03-19 16:33] LABS: Differential Comment SCANNED
[2021-03-19 16:45] LABS: Anion Gap 2 (5-15); BUN 25 mg/dL (7-18); BUN/Creat Ratio 28.4 RATIO (10-20); Calcium,Total 8.9 mg/dL (8.5-10.1); Chloride 100 mmol/L (98-107); Creatinine, Serum 0.88 mg/dL (0.55-1.02); EST Glomerular Filtration Rate 66 mL/min (>60); Est Glom Filt Rate - Afr Amer 79 mL/min (>60); Glucose 132 mg/dL (74-106); Potassium 5.1 mmol/L (3.5-5.1); Sodium Level 131 mmol/L (136-145)
[2021-03-23 14:20] LABS: INR Fingerstick 2.8; Prothrombin Time Fingerstick 30.7 SEC (11.9-14.4)
[2021-04-05 15:51] LABS: Prothrombin Time Fingerstick 22.5 SEC (11.9-14.4)
[2021-04-09 14:41] LABS: INR Fingerstick 2.7; Prothrombin Time Fingerstick 29.6 SEC (11.9-14.4)
== END 2021-04-09 18:00 | disposition home or self-care (01) ==
LOC: LAB 14:09
PROVIDERS: Family Provider Family Medicine Geriatric Medicine; PCP Family Medicine Geriatric Medicine; Referring Provider Internal Medicine Cardiovascular Disease; Visit Provider Internal Medicine Cardiovascular Disease
DX: I48.0 Paroxysmal atrial fibrillation (principal); I48.92 Unspecified atrial flutter; Z95.2 Presence of prosthetic heart valve; Z79.01 Long term (current) use of anticoagulants
CPT/HCPCS: 36415; 36416; 80048; 85025; 85610; 87086

== ENCOUNTER 2021-05-09 08:26 | Day surgery (SDC) | payer MEDICARE, OTHER, SELFPAY ==
[2021-05-09] VITALS (8 sets, daily range): BP systolic 103–159; BP diastolic 50–85; PULSE 70–81; RESP 14–16; TEMP 36.1–36.4; O2SAT 96–100; BMI 21.7
[2021-05-09] MEDS: Lactated Ringers 1,000 ML 100 ML IV (08:35)
--- NOTE | 2021-05-09 08:39 | PCM.HP.BLA ---
History and Physical Date of Admission: 05/09/21 Date of Service: 04/13/21 Intake Intake Visit Reasons: 2WK F/U Meds ABDOMINAL PAIN, NAUSEA Chief Complaint: constipation/ abd bloating Allergies levothyroxine Allergy (Unknown, Verified 04/13/21 13:35) Unknown levothyroxine sodium [From Unithroid] Allergy (Unknown, Verified 04/13/21 13:35) Unknown HERMILO Inhibitors Allergy (Verified 04/13/21 13:35) Unknown amiodarone Allergy (Verified 04/13/21 13:35) Unknown CT DYE Allergy (Uncoded 04/05/21 11:53) Diarrhea [facility] Medical History (Updated 04/05/21 @ 14:[address] 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 Melanoma 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 tachycardia Paroxysmal atrial fibrillation Paroxysmal atrial flutter Ventricular tachycardia Surgical History History of breast implant History of knee surgery History of mastectomy History of mitral valve replacement (~06/1997) History of tonsillectomy and adenoidectomy Presence of implantable cardioverter-defibrillator (ICD) Family History Father Hypertension Cancer Mother Cancer Hypertension Social History Smoking Status: Never smoker alcohol intake: never caffeine: No HPI HPI HPI: JAMES BURK, is a 80 F who presents to the office today for follow-up from abdominal pain/bloating/constipation. Patient states that prior to her last appointment she took about three fourths the GoLYTELY did not have any bowel movements. Following that appointment patient did take 4 fleets enemas and over about 2 days did have some bowel movement that was loose. On the patient took half bottle of magnesium citrate had burning up her esophagus with this did not take the other half. More recently starting Friday patient has taken Dulcolax daily and had a large amount of stool on the . Patient has been having bowel movements daily since then. Patient is interested in having a colonoscopy and EGD for evaluation. Currently patient denies any abdominal bloating or abdominal pain. Patient does have mechanical heart valve and is on Coumadin and will need to be bridged. Exam Const General: cooperative, healthy appearing, comfortable and no acute distress Neck Neck: normal visual inspection Resp Effort & Inspection: normal respiratory effort Cardio Rate: regular rate GI Inspection: non-distended Palpation: soft, no guarding and nontender Skin General: no rashes or lesions noted Neuro General: patient oriented x3 Psych Affect: normal affect Assessment and Plan Assessment and Plan (1) Acid reflux: Status: Acute (2) Abdominal pain: Status: Acute (3) Constipation: Status: Acute (4) History of mitral valve replacement: Status: Chronic Comment: [facility] #27mm 06/1997 (5) FDC current use of anticoagulant: Status: Chronic Plan: Patient does have mechanical heart valve will need to be bridged to Lovenox. I have discussed the above with the patient. I have offered the patient EGD and colonoscopy for evaluation. I have explained the risks/benefits of the procedure and described the procedure. I have discussed the risks with the patient, including but not limited to: infection, bleeding, perforation of the GI tract requiring emergency surgery, inability to complete the procedure, injury to any internal organs, complications of anesthesia, etc. - the patient understands and agrees to proceed. I have answered all the patient's questions to the patient's satisfaction and the patient has no further questions. The patient has been given instructions for the colon cleansing preparation. 2 day of clears, MiraLAX Dulcolax blood prep. Halley Vela M.D. Pager: [phone] [facility] [address] [place] [address], [address] [place] [address] Office: [phone] Plan Details Other Medications: New: pantoprazole Take at night due to thyroid medication in a.m. 20 mg PO DAILY 30 tabs 0RF Coding Level of Care Code Off vis,est,level 3 Diagnoses Acid reflux K21.9 Abdominal pain R10.9 Constipation K59.00 History of mitral valve replacement Z98.890; Z95.2 FDC current use of anticoagulant Z79.01 04/18/21 1000<Electronically signed by Halley Vela MD>Date [facility] MD
[2021-05-09] MEDS: Cefazolin 2 GM in 0.9% Normal Saline 100 ML IV (08:45)
--- NOTE | 2021-05-09 09:45 | EGD_PTH ---
PATIENT: JAMES BURK LOC: EN U#:[id number] AGE/SX: 80/F ROOM: RE05/09/[address]: Dr. Halley Vela MD : 1940 BED: DIS: 05/09/2021 SPEC #: [id number] RECD: 05/09/21 11:29 STATUS: THERESA ALAN #: [id number] YESSENIA: 05/09/21 09:[address]: Halley Vela DEPT: SURGICAL PATHOLOGY RECD BY: Raquel Valadez ENTERED: 05/09/21 11:56 SP TYPE: EGD BIOPSY OT DR: Dr. Romie Landeros MD Tissues: Gastric mucous membrane Procedures: Surgery Specimen Level IV HEADER OPERATION[place] [place] DIAGNOSIS: Acid reflux, abdominal pain, constipation TISSUE SUBMITTED: Biopsy antrum for H. pylori and path MICROSCOPIC DIAGNOSIS Gastric antrum, biopsy: Mild chronic gastritis. See comment. AM:fiorella 05/10/2021 COMMENT The results of immunohistochemistry for Helicobacter pylori will be reported separately ([id number]). MICROSCOPIC DESCRIPTION Slides are reviewed. GROSS DESCRIPTION Received in fixative is one container labeled with the patient's name and designated antrum biopsy. The specimen consists of one irregular fragment of light lim soft tissue that measures 0.2 x 0.2 x 0.1 cm. The specimen is totally submitted in one cassette. / SJ:fiorella 05/09/21 TC:3 CPT: 60786
--- NOTE | 2021-05-09 09:45 | IMM_PTH ---
PATIENT: JAMES BURK LOC: EN U#:[id number] AGE/SX: 80/F ROOM: RE05/09/[address]: Dr. Halley Vela MD : 1940 BED: DIS: 05/09/2021 SPEC #: [id number] RECD: 05/09/21 11:57 STATUS: THERESA REQ #: [id number] YESSENIA: 05/09/21 09:[address]: Halley Vela DEPT: IMMUNOHISTOCHEMISTRY RECD BY: Nicole Martinez ENTERED: 05/09/21 11:58 SP TYPE: IMMUNO OTHR DR: Dr. Romie Landeros MD Tissues: Stomach, NOS Procedures: H Pylori (initial) PHYSICIAN & INSTITUTION [place] [id number] SPECIMEN INFORMATION: Tissue Source: Antrum Clinical Info: Acid reflux, abdominal pain, constipation Specimen Number: [id number] CPT code: 60588 METHODOLOGY: Deparaffinized sections of prefer/formalin-fixed tissue or PAP/DQ stained slides are incubated with monoclonal/polyclonal antibodies/oligonucleotide probes. Localization is made via biotin free immunoperoxidase method. Appropriate controls are performed and reacted as expected. Results on target cell population are indicated in the following table: RESULTS: ANTIBODY / CLONE RESULT H Pylori (polyclonal) negative These tests were developed and their performance characteristics determined by [facility]. They may not have been cleared or approved by the U.S. Food and Drug Administration. The FDA has determined that such clearance or approval is not necessary. INTERPRETATION: Antrum biopsy: Negative for Helicobacter pylori organisms. AM:fiorella 05/11/2021
--- NOTE | 2021-05-09 10:36 | OP.EGD_ITS ---
Patient Name: Parvin Berumen Procedure Date: 05/09/2021 9:35 AM Date of : 1940 Age: 80 Procedure: Upper GI endoscopy Indications: Generalized abdominal pain, Abdominal bloating Providers: Halley Vela MD Medicines: Monitored Anesthesia Care Patient Profile: This is an 80 year old female. Complications: No immediate complications. Procedure: Pre-Anesthesia Assessment: - Prior to the procedure, a History and Physical was performed, and patient medications and allergies were reviewed. The patient's tolerance of previous anesthesia was also reviewed. The risks and benefits of the procedure and the sedation options and risks were discussed with the patient. All questions were answered, and informed consent was obtained. Prior Anticoagulants: The patient has taken Lovenox (enoxaparin), last dose was 1 day prior to procedure. ASA Grade Assessment: Per anesthesia. After reviewing the risks and benefits, the patient was deemed in satisfactory condition to undergo the procedure. After obtaining informed consent, the endoscope was passed under direct vision. Throughout the procedure, the patient's blood pressure, pulse, and oxygen saturations were monitored continuously. The gastroscope was introduced through the mouth, and advanced to the second part of duodenum. The upper GI endoscopy was accomplished without difficulty. The patient tolerated the procedure well. Scope In: 9:57:43 AM Scope Out: 10:05:04 AM Total Procedure Duration Time 0 hours 7 minutes 21 seconds Findings: The Z-line was irregular and was found 40 cm from the incisors. Diffuse moderate inflammation with diffuse small punctate hemorrhages characterized by adherent blood and erythema was found in the entire examined stomach. Biopsies were taken with a cold forceps for histology. Biopsies were taken with a cold forceps for Helicobacter pylori cultures. The examined duodenum was normal. The cardia and gastric fundus were normal on retroflexion. One superficial healing esophageal ulcer with no bleeding was found 40 cm from the incisors. The lesion was 4 mm in largest dimension. Impression: - Z-line irregular, 40 cm from the incisors. - Gastritis with hemorrhage. Biopsied. - Normal examined duodenum. - Non-bleeding healing superificial esophageal ulcer. Recommendation: - Discharge patient to home. - Resume previous diet. - Use Protonix (pantoprazole) 40 mg PO daily. - Use sucralfate tablets 1 gram PO QID. - Await pathology results. - Continue present medications. Procedure Code(s): --- Professional --- 03112, Esophagogastroduodenoscopy, flexible, transoral; with biopsy, single or multiple Diagnosis Code(s): --- Professional --- K22.8, Other specified diseases of esophagus K29.71, Gastritis, unspecified, with bleeding R10.84, Generalized abdominal pain R14.0, Abdominal distension (gaseous) CPT copyright 2017 [employer]. All rights reserved. The codes documented in this report are preliminary and upon marketing assistant retail division review may be revised to meet current compliance requirements. MD Halley Diggs MD 05/09/2021 10:35:32 AM This report has been signed electronically. Number of Addenda: 0 Note Initiated On: 05/09/2021 9:35 AM
--- NOTE | 2021-05-09 10:37 | OP.CCLET_ITS ---
05/09/2021 Romie Landeros MD [address] [place] [address] Re : Upper GI endoscopy procedure for Parvin Berumen Dear Dr. Landeros This procedure was performed on Sunday, May 09, 2021. My impressions and recommendations are as follows: Impressions : - Z-line irregular, 40 cm from the incisors. - Gastritis with hemorrhage. Biopsied. - Normal examined duodenum. - Non-bleeding healing superificial esophageal ulcer. Recommendations : - Discharge patient to home. - Resume previous diet. - Use Protonix (pantoprazole) 40 mg PO daily. - Use sucralfate tablets 1 gram PO QID. - Await pathology results. - Continue present medications. My findings are described in the full procedure note, which is enclosed. If I can be of further assistance, please feel free to contact me at Doctor phone number(s): , Work: . Sincerely, MD Halley Diggs MD 05/09/2021 10:35:32 AM This report has been signed electronically.
--- NOTE | 2021-05-09 10:42 | OP.COLON_ITS ---
Patient Name: Parvin Berumen Procedure Date: 05/09/2021 10:06 AM Date of : 1940 Age: 80 Procedure: Colonoscopy Indications: Generalized abdominal pain, Constipation Providers: Halley Vela MD Medicines: Monitored Anesthesia Care Patient Profile: This is an 80 year old female. Last Colonoscopy: 2009. Complications: No immediate complications. Procedure: Pre-Anesthesia Assessment: - Prior to the procedure, a History and Physical was performed, and patient medications and allergies were reviewed. The patient's tolerance of previous anesthesia was also reviewed. The risks and benefits of the procedure and the sedation options and risks were discussed with the patient. All questions were answered, and informed consent was obtained. Prior Anticoagulants: The patient has taken Lovenox (enoxaparin), last dose was 1 day prior to procedure. ASA Grade Assessment: Per anesthesia. After reviewing the risks and benefits, the patient was deemed in satisfactory condition to undergo the procedure. After I obtained informed consent, the scope was passed under direct vision. Throughout the procedure, the patient's blood pressure, pulse, and oxygen saturations were monitored continuously. The colonoscope was introduced through the anus and advanced to the cecum, identified by appendiceal orifice and ileocecal valve. The colonoscopy was performed without difficulty. The patient tolerated the procedure well. The quality of the bowel preparation was good. Scope In: 10:09:04 AM Scope Withdrawal Time 0 hours 7 minutes 36 seconds Scope Out: 10:20:32 AM Total Procedure Duration Time 0 hours 11 minutes 28 seconds Findings: The perianal and digital rectal examinations were normal. The entire examined colon appeared normal on direct and retroflexion views. Impression: - The entire examined colon is normal on direct and retroflexion views. - No specimens collected. Recommendation: - Discharge patient to home. - Resume previous diet. - Continue present medications. - No repeat colonoscopy due to current age (66 years or older). Procedure Code(s): --- Professional --- 91003, Colonoscopy, flexible; diagnostic, including collection of specimen(s) by brushing or washing, when performed (separate procedure) Diagnosis Code(s): --- Professional --- R10.84, Generalized abdominal pain K59.00, Constipation, unspecified CPT copyright 2017 [employer]. All rights reserved. The codes documented in this report are preliminary and upon estimator project manager review may be revised to meet current compliance requirements. MD Halley Diggs MD 05/09/2021 10:41:36 AM This report has been signed electronically. Number of Addenda: 0 Note Initiated On: 05/09/2021 10:06 AM
--- NOTE | 2021-05-09 10:42 | OP.CCLET_ITS ---
05/09/2021 Romie Landeros MD [address] [address] Re : Colonoscopy procedure for Parvin Ata Dear Dr. Landeros This procedure was performed on Sunday, May 09, 2021. My impressions and recommendations are as follows: Impressions : - The entire examined colon is normal on direct and retroflexion views. - No specimens collected. Recommendations : - Discharge patient to home. - Resume previous diet. - Continue present medications. - No repeat colonoscopy due to current age (66 years or older). My findings are described in the full procedure note, which is enclosed. If I can be of further assistance, please feel free to contact me at Doctor phone number(s): , Work: . Sincerely, MD Halley Diggs MD 05/09/2021 10:41:36 AM This report has been signed electronically.
[2021-05-09 10:49] LABS: Hematocrit 32.7 % (37-47); Hemoglobin 10.5 g/dL (12.0-15.0)
== END 2021-05-09 12:24 | disposition home or self-care (01) ==
LOC: EN 08:28 → AC 08:29
PROVIDERS: PCP Family Medicine Geriatric Medicine; Referring Provider Family Medicine Geriatric Medicine; Visit Provider Surgery
PROC: 0DJD8ZZ Inspection of Lower Intestinal Tract, Via Natural or Artificial Opening Endoscopic (ICD-10-PCS; CPT 45378; principal; 2021-05-09 09:40)
DX: K29.50 Unspecified chronic gastritis without bleeding (principal); K59.00 Constipation, unspecified; R10.84 Generalized abdominal pain; K22.8 Other specified diseases of esophagus; K29.71 Gastritis, unspecified, with bleeding; I11.0 Hypertensive heart disease with heart failure; I50.22 Chronic systolic (congestive) heart failure; Z85.3 Personal history of malignant neoplasm of breast; I48.0 Paroxysmal atrial fibrillation; E78.5 Hyperlipidemia, unspecified; Z95.2 Presence of prosthetic heart valve; K21.9 Gastro-esophageal reflux disease without esophagitis; Z79.01 Long term (current) use of anticoagulants
CPT/HCPCS: 43239; 45378; 85014; 85018; 88305; 88342; J7120

== ENCOUNTER 2021-05-14 12:27 | Outpatient (RCR) | payer MEDICARE, OTHER, SELFPAY ==
[2021-04-17 19:33] VITALS: BMI 22.4
[2021-05-02 14:25] LABS: INR Fingerstick 1.9; Prothrombin Time Fingerstick 22.3 SEC (11.9-14.4)
[2021-05-08 11:51] LABS: INR Fingerstick 1.4; Prothrombin Time Fingerstick 16.8 SEC (11.9-14.4)
[2021-05-11 14:16] LABS: INR Fingerstick 1.6; Prothrombin Time Fingerstick 18.2 SEC (11.9-14.4)
[2021-05-14 12:51] LABS: INR Fingerstick 2.9; Prothrombin Time Fingerstick 31.7 SEC (11.9-14.4)
== END 2021-05-14 18:00 | disposition home or self-care (01) ==
LOC: MTLAB 12:27
PROVIDERS: Family Provider Family Medicine Geriatric Medicine; PCP Family Medicine Geriatric Medicine; Referring Provider Internal Medicine Cardiovascular Disease; Visit Provider Internal Medicine Cardiovascular Disease
DX: I48.0 Paroxysmal atrial fibrillation (principal); I48.92 Unspecified atrial flutter; Z95.2 Presence of prosthetic heart valve; Z79.01 Long term (current) use of anticoagulants
CPT/HCPCS: 36416; 85610

== ENCOUNTER → 2021-06-04 15:07 | Outpatient (CLI) | payer MEDICARE, OTHER, SELFPAY ==
[2021-06-04 17:51] LABS: Absolute Lymphocyte Count 0.73 X10^3/uL (0.83-4.51); Basophil# 0.02 X10^3/uL; Basophil% 0.4 % (0-1); Eosinophil# 0.14 X10^3/uL; Eosinophils% 2.6 % (0-5); Hematocrit 38.1 % (37-47); Hemoglobin 12.2 g/dL (12.0-15.0); Lymphocyte # 0.73 X10^3/ul (0.83-4.51); Lymphocyte % 13.3 % (19-41); Mean Corpuscular Hgb 30.2 pg (27.0-32.0); Mean Corpuscular Volume 94.3 fL (81-99); Mean Platelet Vol. 11.5 fl (6.2-12.0); NRBC Flagged by Analyzer 0 % (0-5); Neutrophil # 3.95 X10^3/uL (2.7-7.7); Neutrophil % 72.2 % (47-70); Platelet Count 177 K/mm3 (150-450); RBC Distribution Width CV 13.2 % (11.6-14.6); RBC Distribution Width SD 46.1 fl (35.1-43.9); Red Blood Count 4.04 M/mm3 (4.2-5.4); White Blood Count 5.5 K/mm3 (4.4-11.0)
[2021-06-04 17:52] LABS: International Normalized Ratio 2.3; Prothrombin Time (Protime)PT. 24.8 SECONDS (11.7-14.9)
[2021-06-04 18:07] LABS: ALB/GLOB Ratio 1.3 RATIO (0.9-2.4); AST(SGOT) 27 U/L (15-37); Alanine Aminotransfer ALT/SGPT 29 U/L (13-56); Albumin, Serum 3.8 g/dL (3.2-5.0); Alkaline Phosphatase 96 U/L (45-117); Anion Gap 6 (5-15); BUN 27 mg/dL (7-18); Calcium,Total 8.9 mg/dL (8.5-10.1); Chloride 100 mmol/L (98-107); Creatinine, Serum 0.87 mg/dL (0.55-1.02); EST Glomerular Filtration Rate 66 mL/min (>60); Est Glom Filt Rate - Afr Amer 80 mL/min (>60); Globulin 2.9 g/dL (2.2-4.2); Glucose 136 mg/dL (74-106); Potassium 5.2 mmol/L (3.5-5.1); Protein, Total 6.7 g/dL (6.4-8.2); Sodium Level 134 mmol/L (136-145); Thyroid Stim Hormone (TSH) 2.39 uIU/mL (0.358-3.74)
== END ==
PROVIDERS: PCP Family Medicine Geriatric Medicine; Visit Provider Family Medicine Geriatric Medicine
DX: I10 Essential (primary) hypertension (principal); I48.0 Paroxysmal atrial fibrillation; E55.9 Vitamin D deficiency, unspecified; Z98.890 Other specified postprocedural states; Z95.2 Presence of prosthetic heart valve; I48.92 Unspecified atrial flutter; Z79.01 Long term (current) use of anticoagulants
CPT/HCPCS: 36415; 80053; 82306; 84443; 85025; 85610

== ENCOUNTER → 2021-06-07 14:47 | Outpatient (CLI) | payer MEDICARE, OTHER, SELFPAY ==
[2021-06-07 17:44] LABS: Anion Gap 6 (5-15); BUN 21 mg/dL (7-18); BUN/Creat Ratio 22.9 RATIO (10-20); Chloride 101 mmol/L (98-107); Creatinine, Serum 0.92 mg/dL (0.55-1.02); EST Glomerular Filtration Rate 63 mL/min (>60); Est Glom Filt Rate - Afr Amer 76 mL/min (>60); Glucose 113 mg/dL (74-106); Potassium 4.3 mmol/L (3.5-5.1); Sodium Level 139 mmol/L (136-145)
== END ==
PROVIDERS: PCP Family Medicine Geriatric Medicine; Referring Provider Family Medicine Geriatric Medicine; Visit Provider Family Medicine Geriatric Medicine
DX: E87.5 Hyperkalemia (principal)
CPT/HCPCS: 36415; 80048

== ENCOUNTER 2021-06-14 14:17 | Outpatient (RCR) | payer MEDICARE, OTHER, SELFPAY ==
[2021-05-18 01:53] VITALS: BMI 22.4
[2021-05-22 13:36] LABS: INR Fingerstick 1.9
[2021-05-30 14:16] LABS: Prothrombin Time Fingerstick 22.9 SEC (11.9-14.4)
[2021-06-14 14:26] LABS: INR Fingerstick 2.2
== END 2021-06-17 18:00 | disposition home or self-care (01) ==
LOC: MTLAB 14:17
PROVIDERS: Family Provider Family Medicine Geriatric Medicine; PCP Family Medicine Geriatric Medicine; Referring Provider Internal Medicine Cardiovascular Disease; Visit Provider Internal Medicine Cardiovascular Disease
DX: I48.0 Paroxysmal atrial fibrillation (principal); I48.92 Unspecified atrial flutter; Z95.2 Presence of prosthetic heart valve; Z79.01 Long term (current) use of anticoagulants; Z98.890 Other specified postprocedural states
CPT/HCPCS: 36416; 85610

== ENCOUNTER 2021-07-06 13:26 | Outpatient (RCR) | payer MEDICARE, OTHER, SELFPAY ==
[2021-06-17 20:33] VITALS: BMI 22.4
[2021-06-29 14:16] LABS: INR Fingerstick 2.6; Prothrombin Time Fingerstick 29.1 SEC (11.9-14.4)
[2021-07-06 13:50] LABS: INR Fingerstick 2.9; Prothrombin Time Fingerstick 31.8 SEC (11.9-14.4)
== END 2021-07-17 18:00 | disposition home or self-care (01) ==
LOC: MTLAB 13:26
PROVIDERS: Family Provider Family Medicine Geriatric Medicine; PCP Family Medicine Geriatric Medicine; Referring Provider Internal Medicine Cardiovascular Disease; Visit Provider Internal Medicine Cardiovascular Disease
DX: I48.0 Paroxysmal atrial fibrillation (principal); I48.92 Unspecified atrial flutter; Z95.2 Presence of prosthetic heart valve; Z79.01 Long term (current) use of anticoagulants; Z98.890 Other specified postprocedural states
CPT/HCPCS: 36416; 85610

== ENCOUNTER 2021-07-23 13:22 | Outpatient (RCR) | payer MEDICARE, OTHER, SELFPAY ==
[2021-07-18 04:05] VITALS: BMI 22.4
[2021-07-23 13:31] LABS: INR Fingerstick 2.7; Prothrombin Time Fingerstick 30.6 SEC (11.9-14.4)
== END 2021-08-18 18:00 | disposition home or self-care (01) ==
LOC: MTLAB 13:22
PROVIDERS: Family Provider Family Medicine Geriatric Medicine; PCP Family Medicine Geriatric Medicine; Referring Provider Internal Medicine Cardiovascular Disease; Visit Provider Internal Medicine Cardiovascular Disease
DX: I48.0 Paroxysmal atrial fibrillation (principal); I48.92 Unspecified atrial flutter; Z95.2 Presence of prosthetic heart valve; Z79.01 Long term (current) use of anticoagulants
CPT/HCPCS: 36416; 85610

== ENCOUNTER 2021-09-05 07:47 | Emergency (ER) | payer MEDICARE, OTHER, SELFPAY ==
[2021-09-05 07:48] VITALS: BP 153/79; PULSE 109; RESP 16; TEMP 37; O2SAT 99; BMI 22.8
[2021-09-05 07:56] VITALS: O2SAT 99
--- NOTE | 2021-09-05 07:56 | EKG12_ITS ---
Test Reason : SOB/CP Blood Pressure : / mmHG Vent. Rate : 098 BPM Atrial Rate : 416 BPM P-R Int : 000 ms QRS Dur : 102 ms QT Int : 358 ms P-R-T Axes : 000 -65 -28 degrees QTc Int : 457 ms Suspect unspecified pacemaker failure Atrial fibrillation Left axis deviation Septal infarct AGE UNDETERMINED Inferior infarct ,AGE UNDETERMINED T wave abnormality, consider lateral ischemia Abnormal ECG Confirmed by ANNA WEAVER, ROSA ([id number]), restaurant expeditor AISHWARYA ROBERTS ([id number]) on 09/06/2021 8:58:59 AM Referred By: STORMY Confirmed By:ROSA CASTILLO MD
--- NOTE | 2021-09-05 07:56 | RAD_ITS ---
STUDY: X-RAY CHEST REASON FOR EXAM: Female, 80 years old. Chest pain TECHNIQUE: Single AP portable view of the chest. COMPARISON: Comparison is made with prior study dated 03/02/2021. FINDINGS: EKG electrodes are seen. A left-sided breast prosthesis is seen. There is hyperinflation of the lungs consistent with chronic obstructive lung disease (COPD). There is no demonstrated pleural abnormality. Sternal cerclage wires and vascular clips are present from a prior sternotomy and coronary artery bypass graft procedure (CABG). A right-sided dual-chamber pacemaker is present. Normal mediastinum and irene. Normal visualized pulmonary arteries. There is atherosclerotic calcification of the aortic arch with tortuosity. There is demineralization of the osseous structures. Normal visualized ribs, clavicles, and shoulders. There is no demonstrated abnormality of the visualized soft tissue structures of the upper abdomen. RAD/Chest 1 View (Portable) IMPRESSION: Hyperinflation. The lungs are clear. Electronically Signed: Aman Real MD at 8:39 EST , Service support ,
[2021-09-05 08:16] LABS: Absolute Lymphocyte Count 0.57 X10^3/uL (0.83-4.51); Absolute Neutrophil Count 3.6 X10^3/uL (2.0-7.7); Basophil# 0.02 X10^3/uL; Basophil% 0.4 % (0-1); Eosinophil# 0.12 X10^3/uL; Eosinophils% 2.5 % (0-5); Hematocrit 36.9 % (37-47); Hemoglobin 11.9 g/dL (12.0-15.0); Lymphocyte # 0.57 X10^3/ul (0.83-4.51); Lymphocyte % 11.7 % (19-41); Mean Corp Hgb Conc 32.2 g/dL (32-36); Mean Corpuscular Hgb 30.6 pg (27.0-32.0); Mean Corpuscular Volume 94.9 fL (81-99); Monocyte# 0.58 X10^3/uL; Monocyte% 11.9 % (0-10); NRBC Flagged by Analyzer 0 % (0-5); Neutrophil # 3.56 X10^3/uL (2.7-7.7); Neutrophil % 73.1 % (47-70); POSITIVE DIFFERENTIAL YES; Platelet Count 144 K/mm3 (150-450); RBC Distribution Width CV 13.6 % (11.6-14.6); RBC Distribution Width SD 47.5 fl (35.1-43.9); Red Blood Count 3.89 M/mm3 (4.2-5.4); White Blood Count 4.9 K/mm3 (4.4-11.0)
[2021-09-05 08:19] LABS: Differential Indicated SCAN CRITERIA MET
[2021-09-05 08:23] LABS: Anion Gap 6 (5-15); BUN 24 mg/dL (7-18); BUN/Creat Ratio 30.4 RATIO (10-20); Calcium,Total 9.2 mg/dL (8.5-10.1); Chloride 102 mmol/L (98-107); Creatinine, Serum 0.79 mg/dL (0.55-1.02); EST Glomerular Filtration Rate 74 mL/min (>60); Est Glom Filt Rate - Afr Amer 90 mL/min (>60); Estimated Creatinine Clearance 35.49 ml/min; Glucose 160 mg/dL (74-106); Potassium 4.3 mmol/L (3.5-5.1); Sodium Level 135 mmol/L (136-145); Troponin-I HS 15 pg/mL (3.0-54.0)
[2021-09-05 08:33] LABS: BNP,B-Type NATRIURETIC PEPTIDE 462.7 pg/mL (0-100)
[2021-09-05 08:34] LABS: Differential Comment SCANNED
[2021-09-05 08:39] LABS: International Normalized Ratio 1.5; Prothrombin Time (Protime)PT. 17.6 SECONDS (11.7-14.9)
[2021-09-05 08:54] VITALS: BP 152/92; PULSE 75
[2021-09-05] MEDS: Nitroglycerin (INPATIENT USE) 0.4 MG TAB.SUBL SL (08:54)
[2021-09-05] MEDS: Morphine 4 MG/ML Syringe IV (09:07)
[2021-09-05] MEDS: Ondansetron 4 MG/2 ML Vial IV (09:07)
[2021-09-05 09:56] VITALS: BP 148/86; PULSE 90; RESP 16; O2SAT 98
[2021-09-05 10:04] LABS: Troponin-I HS 15 pg/mL (3.0-54.0)
--- NOTE | 2021-09-05 11:50 | EDS_ITS ---
HPI History of Present Illness Chief Complaint: Shortness of Breath Narrative Narrative: 80-year-old female with history of diabetes, hypothyroidism, hypertension, paroxysmal A. fib, V. tach, CHF, dilated cardiomyopathy currently on Coumadin for anticoagulation. She states she did have to hold it for a couple of days for procedure she was post to have on heart is fluttering. Eye but has restarted it. She states that for 2 weeks she has been feeling more short of breath than usual. She states that it seems to correlate with palpitations that she has. She states that she has chest pain but when asked to describe it she states it feels like her heart is fluttering. She does not spread pain, pressure, sharpness. She has not had cough or fever. No nausea or vomiting. No abdominal pain. No GI or symptoms. [facility] Medical History Anxiety Anxiety states Arthritis Atrial dysrhythmia Bladder disease Cancer Cardiac pacemaker Cardiology follow-up encounter Chronic systolic congestive heart failure Dilated cardiomyopathy Essential hypertension Fibromyalgia Gastric reflux High cholesterol History of breast cancer History of CHF (congestive heart failure) History of echocardiogram History of esophageal reflux History of irregular heartbeat History of mitral valve disorder History of pain when walking History of stress test HLD (hyperlipidemia) Hypertension Leg cramps residential current use of anticoagulant Loss of hearing Melanoma Non-smoker 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 tachycardia Paroxysmal atrial fibrillation Paroxysmal atrial flutter Shortness of breath on exertion Thyroid disease Ventricular tachycardia Walker as ambulation aid Wears glasses Home Medications tramadol 50 mg PO BID PRN 03/28/15 [History Last Taken 04/01/18] aspirin 81 mg PO DAILY@0800 08/01/17 [History Last Taken 04/01/18] multivitamin 1 ea PO DAILY 08/01/17 [History Last Taken 04/01/18] cholecalciferol (vitamin D3) 50 mcg (2,000 unit) capsule 50 mcg PO DAILY 01/24/21 [History Last Taken Unknown] thyroid (pork) 30 mg tablet 30 mg PO DAILY tab 01/29/21 [History Last Taken Unknown] acetaminophen 650 mg tablet,extended release 650 mg PO DAILY PRN tab 02/07/21 [History Last Taken Unknown] carvedilol 12.5 mg tablet 12.5 mg PO BID #180 tab 03/07/21 [Rx Last Taken Unknown] warfarin 1 mg tablet 6 mg PO DAILY 04/05/21 [History Last Taken 05/05/21] docusate sodium 100 mg capsule 100 mg PO Q OTHER DAY cap 04/25/21 [History Last Taken Unknown] Entresto 1 tab PO BID 05/07/21 [History Last Taken Unknown] pantoprazole 40 mg PO DAILY #30 tab 05/09/21 [Rx Last Taken Unknown] enoxaparin 60 mg/0.6 mL subcutaneous syringe 60 mg SUBCUT Q12H #6 ml 05/11/21 [Rx Last Taken Unknown] primidone 50 mg tablet 25 mg PO BID #30 tab 06/21/21 [Rx Last Taken Unknown] pravastatin 20 mg tablet 20 mg PO QHS #90 tab 08/27/21 [Rx Last Taken Unknown] carvedilol [Coreg] 25 mg PO BID #30 tab 09/05/21 [Rx Last Taken Unknown] furosemide [Lasix] 20 mg PO QODAY #30 tab 09/05/21 [Rx Last Taken Unknown] lidocaine 1 patch TOPICAL DAILY PRN #1 ea 09/05/21 [Rx Last Taken Unknown] Allergy/AdvReac Type Severity Reaction Status Date / Time HERMILO Inhibitors Allergy Unknown Verified 09/05/21 08:00 amiodarone Allergy Unknown Verified 09/05/21 08:00 levothyroxine AdvReac Unknown Nausea Verified 09/05/21 08:00 levothyroxine sodium AdvReac Unknown Nausea Verified 09/05/21 08:00 [From Unithroid] CT DYE Allergy Diarrhea / Uncoded 09/05/21 08:00 FLOPPING AROUND ON TABLE Family History Father Hypertension Cancer Mother Cancer Hypertension Surgical History History of breast implant History of cardiac catheterization History of knee surgery History of local excision of skin lesion History of mastectomy History of mitral valve replacement (~06/1997) History of radiofrequency ablation procedure for cardiac arrhythmia History of tonsillectomy and adenoidectomy Hx of mitral valve repair Presence of implantable cardioverter-defibrillator (ICD) Social History Smoking Status: Never smoker alcohol intake: never caffeine: No ROS ROS ED Constitutional Constitutional ED: Denies chills or fever(s) Eyes Eyes: Denies blurry vision or diplopia ENT ENT ED: Denies rhinorrhea or sore throat Cardiovascular Cardiovascular: Reports palpitations and racing heartbeat Respiratory/Chest Respiratory/Chest: Reports dyspnea; Denies cough or sputum Gastrointestinal Gastrointestinal: Denies abdominal pain, nausea or vomiting Genitourinary Genitourinary ED: Denies dysuria or hematuria Musculoskeletal Musculoskeletal: Denies arthralgias or myalgias Integumentary Denies rash Neurologic Neurologic: Denies headache(s) or weakness Psychiatric Psychiatric: Denies anxiety or depression EXAM Physical Exam Const Vital Signs: 09/05/21 07:48 09/05/21 07:56 09/05/21 08:54 Temperature 98.6 F Temperature Source Oral Pulse Rate 109 H 75 Respiratory Rate 16 Respiratory Effort Normal Respiratory Depth Normal Respiratory Pattern Normal Blood Pressure 153/79 H 152/92 H Blood Pressure Mean 103 Pulse Ox 99 Oxygen Delivery Method Room Air Room Air 09/05/21 09:56 Temperature Temperature Source Pulse Rate 90 Respiratory Rate 16 Respiratory Effort Respiratory Depth Respiratory Pattern Blood Pressure 148/86 H Blood Pressure Mean 106 Pulse Ox 98 Oxygen Delivery Method Room Air Positive well nourished General Appearance ED: NAD; Negative for pallor HEENT Reports moist mucous membranes atraumatic Eyes PERRL and EOMs intact bilaterally Neck no lymphadenopathy Resp normal respiratory effort and clear to auscultation bilaterally Cardio Rhythm: abnormal rhythm irregularly irregular Extremity normal to inspection General Extremety ED: Negative for edema or tenderness General Extremity: Negative for edema Neuro oriented x3 and CN's II-XII intact bilaterally Sensorium / Orientation: alert Motor Exam: strength 5/5 throughout Psych mental status grossly normal Thought Process: normal thought process Skin General Skin Exam: Negative for jaundice or pallor MDM MDM MDM Narrative Medical decision making narrative: Patient presenting with palpitations. Initially her EKG was atrial fibrillation and a rate of 98 bpm on my interpretation. When I walked into the room to evaluate her she was paced at 70 bpm. After watching the monitor she does jump up to the 120s. This does correlate to her sensation of palpitations. She still describing this as pain even though it sounds like palpitations she request a nitro and this was given but she states it did not help and requested morphine and Zofran. This was given. Pacemaker defibrillator was evaluated and is functional. Discussed the case initially with Dr. Whitehead who stated that as long as her heart rate did not get too fast that the EKG is fine. Lab work obtained shows that her CBC and BMP are within normal limits. INR is slightly subtherapeutic at 1.5 however the patient has been off her Coumadin and just restarted a couple of days ago. She did take her Coumadin this morning. She does not have any DVT history or risk factors. High-sensitivity troponin is 15 and the delta troponin is also 15. I feel this rules out ACS. BNP is elevated at 462 however the patient has no lower extremity edema and her chest x-ray does not show any volume overload. Patient was discussed with Dr. Hayden who is her public information director and he recommended starting Lasix 20 mg p.o. daily. In addition to this he wants me to double her carvedilol to 25 mg p.o. twice daily. She has an appointment for Friday to be seen in office and he will recheck her INR as well as her renal function. Patient counseled if she has any worsening to return to the ER. She acknowledged understanding. Impression: 1. Palpitations 2. Chest pain noncardiac 3. Dyspnea 4. Subtherapeutic INR Lab Data Attestation: I reviewed the patient's lab results. Labs: Laboratory Results - last 24 hr 09/05/21 09/05/21 09/05/21 07:30 07:30 07:30 WBC 4.9 RBC 3.89 L Hgb 11.9 L Hct 36.9 L MCV 94.9 MCH 30.6 MCHC 32.2 RDW Std Deviation 47.5 H RDW Coeff of Ana Maria 13.6 Plt Count 144 L MPV 11.0 Immature Gran % (Auto) 0.400 Neut % (Auto) 73.1 H Lymph % (Auto) 11.7 L Rooks % (Auto) 11.9 H Eos % (Auto) 2.5 Baso % (Auto) 0.4 Absolute Neuts (auto) 3.6 Absolute Lymphs (auto) 0.57 L Nucleated RBC % 0 Differential Comment SCANNED PT 17.6 H INR 1.5 Sodium 135 L Potassium 4.3 Chloride 102 Carbon Dioxide 27.0 Anion Gap 6 BUN 24 H Creatinine 0.79 Estim Creat Clear Calc 35.49 Est GFR (MDRD) Af Amer 90 Est GFR (MDRD) Non-Af 74 BUN/Creatinine Ratio 30.4 H Glucose 160 H Calcium 9.2 Troponin I High Sens 15 B-Natriuretic Peptide 09/05/21 09/05/21 07:30 09:32 WBC RBC Hgb Hct MCV MCH MCHC RDW Std Deviation RDW Coeff of Ana Maria Plt Count MPV Immature Gran % (Auto) Neut % (Auto) Lymph % (Auto) Rooks % (Auto) Eos % (Auto) Baso % (Auto) Absolute Neuts (auto) Absolute Lymphs (auto) Nucleated RBC % Differential Comment PT INR Sodium Potassium Chloride Carbon Dioxide Anion Gap BUN Creatinine Estim Creat Clear Calc Est GFR (MDRD) Af Amer Est GFR (MDRD) Non-Af BUN/Creatinine Ratio Glucose Calcium Troponin I High Sens 15 B-Natriuretic Peptide 462.7 H Radiography Diagnostic Testing: Clinical Impression(s) from Imaging Studies Chest X-Ray 09/05/21 07:56 IMPRESSION: Hyperinflation. The lungs are clear. Electronically Signed: Aman Real MD at 8:39 EST , Service support , Discharge Plan Triage Chief Complaint: Shortness of Breath ED Provider: Kt Mckeon Dx/Rx/DC Orders Instructions: ED AFIB, ED Palpitations Prescriptions: New lidocaine 5 % adhesive patch,medicated 1 patch topical DAILY PRN (Reason: pain) Qty: 1 RF: 0 carvedilol [Coreg] 25 mg tablet 25 mg PO BID Qty: 30 RF: 0 furosemide [Lasix] 20 mg tablet 20 mg PO QODAY Qty: 30 RF: 0 No Action acetaminophen 650 mg tablet extended release 650 mg PO DAILY PRN (Reason: pain/fever) RF: 0 cholecalciferol (vitamin D3) 50 mcg (2,000 unit) capsule 50 mcg PO DAILY RF: 0 thyroid (pork) 30 mg tablet 30 mg PO DAILY RF: 0 primidone 50 mg tablet 25 mg PO BID Qty: 30 RF: 2 tramadol 50 MG tablet 50 mg PO BID PRN (Reason: Pain) RF: 0 multivitamin 1 EACH tablet 1 ea PO DAILY RF: 0 aspirin 81 MG tablet,chewable 81 mg PO DAILY@0800 RF: 0 Entresto 97-103 mg Tablet 1 tab PO BID RF: 0 pantoprazole 40 mg tablet,delayed release (DR/EC) 40 mg PO DAILY Qty: 30 RF: 3 carvedilol 12.5 mg tablet 12.5 mg PO BID Qty: 180 RF: 3 warfarin 1 mg tablet 6 mg PO DAILY RF: 0 docusate sodium [Colace] 100 mg capsule 100 mg PO Q OTHER DAY RF: 0 enoxaparin 60 mg/0.6 mL syringe 60 mg subcut Q12H Qty: 6 RF: 0 pravastatin 20 mg tablet 20 mg PO QHS Qty: 90 RF: 3 Primary Care Provider: Romie Landeros Chi Referrals: Romie Landeros Chi, MD [Primary Care Provider] - Activity Restrictions/Additional Instructions: I spoke with Dr. Hayden. He had me double your Coreg from 12.5 twice daily to 25 mg twice daily. He wanted you to be on Lasix 20 mg orally daily. He wants to see you Friday for your scheduled appointment. Return for any new or worsening symptoms. Disposition Disposition: Home, Self Care
[2021-09-05] MEDS: Furosemide 20 MG/2 ML VIAL IV (12:26)
[2021-09-05] MEDS: Lidocaine 5% Patch 1 PATCH TOPICAL (12:26)
[2021-09-05] MEDS: Carvedilol 25 MG Tablet PO (12:26)
[2021-09-05 12:29] VITALS: BP 143/73; PULSE 72; RESP 18; O2SAT 99
== END 2021-09-05 12:31 | disposition home or self-care (01) ==
PROVIDERS: Emergency Provider Student in an Organized Health Care Education/Training Program; PCP Family Medicine Geriatric Medicine; Visit Provider Student in an Organized Health Care Education/Training Program
DX: R00.2 Palpitations (principal); I11.0 Hypertensive heart disease with heart failure; I42.0 Dilated cardiomyopathy; I50.22 Chronic systolic (congestive) heart failure; I48.0 Paroxysmal atrial fibrillation; I47.2 Ventricular tachycardia; E11.9 Type 2 diabetes mellitus without complications; R06.02 Shortness of breath; R07.89 Other chest pain; E78.00 Pure hypercholesterolemia, unspecified; E03.9 Hypothyroidism, unspecified; K21.9 Gastro-esophageal reflux disease without esophagitis; M19.90 Unspecified osteoarthritis, unspecified site; M79.7 Fibromyalgia; Z95.810 Presence of automatic (implantable) cardiac defibrillator; Z79.01 Long term (current) use of anticoagulants; Z79.82 Long term (current) use of aspirin; Z79.899 Other long term (current) drug therapy
CPT/HCPCS: 71045; 80048; 83880; 84484; 85025; 85610; 87426; 93005; 96374; 96375; 99285; A4216; J1940; J2405

== ENCOUNTER 2021-09-07 13:22 | Outpatient (CLI) | payer MEDICARE, OTHER, SELFPAY ==
[2021-09-07 15:25] LABS: International Normalized Ratio 3.6; Prothrombin Time (Protime)PT. 34.8 SECONDS (11.7-14.9)
[2021-09-07 15:25] LABS: Anion Gap 6 (5-15); BUN 29 mg/dL (7-18); BUN/Creat Ratio 27.9 RATIO (10-20); Calcium,Total 9.2 mg/dL (8.5-10.1); Chloride 102 mmol/L (98-107); Creatinine, Serum 1.04 mg/dL (0.55-1.02); EST Glomerular Filtration Rate 54 mL/min (>60); Est Glom Filt Rate - Afr Amer 65 mL/min (>60); Glucose 148 mg/dL (74-106); Potassium 4.3 mmol/L (3.5-5.1); Sodium Level 136 mmol/L (136-145)
== END 2021-09-07 23:59 | disposition short-term general hospital (02) ==
LOC: MTLAB 13:23
PROVIDERS: PCP Family Medicine Geriatric Medicine; Referring Provider Internal Medicine Cardiovascular Disease; Visit Provider Internal Medicine Cardiovascular Disease
DX: I48.0 Paroxysmal atrial fibrillation (principal); I50.22 Chronic systolic (congestive) heart failure; I48.92 Unspecified atrial flutter
CPT/HCPCS: 36415; 80048; 85610

== ENCOUNTER 2021-09-13 14:04 | Outpatient (RCR) | payer MEDICARE, OTHER, SELFPAY ==
[2021-08-19 18:17] VITALS: BMI 22.4
[2021-08-21 14:55] LABS: INR Fingerstick 2.2; Prothrombin Time Fingerstick 24.7 SEC (11.9-14.4)
[2021-08-31 15:46] LABS: INR Fingerstick 3.6; Prothrombin Time Fingerstick 39.4 SEC (11.9-14.4)
[2021-09-13 14:15] LABS: Prothrombin Time Fingerstick 34.3 SEC (11.9-14.4)
== END 2021-09-17 18:00 | disposition home or self-care (01) ==
LOC: MTLAB 14:04
PROVIDERS: Family Provider Family Medicine Geriatric Medicine; PCP Family Medicine Geriatric Medicine; Referring Provider Internal Medicine Cardiovascular Disease; Visit Provider Internal Medicine Cardiovascular Disease
DX: I48.0 Paroxysmal atrial fibrillation (principal); I48.92 Unspecified atrial flutter; Z79.01 Long term (current) use of anticoagulants; Z98.890 Other specified postprocedural states; Z95.2 Presence of prosthetic heart valve
CPT/HCPCS: 36416; 85610

== ENCOUNTER 2021-10-08 14:14 | Outpatient (RCR) | payer MEDICARE, OTHER, SELFPAY ==
[2021-09-18 01:39] VITALS: BMI 22.4
[2021-09-19 10:46] LABS: INR Fingerstick 1.5; Prothrombin Time Fingerstick 18.2 SEC (11.9-14.4)
[2021-09-24 13:46] LABS: INR Fingerstick 2.8; Prothrombin Time Fingerstick 31.7 SEC (11.9-14.4)
[2021-10-08 14:21] LABS: INR Fingerstick 2.6
== END 2021-10-08 23:59 | disposition home or self-care (01) ==
LOC: MTLAB 14:14
PROVIDERS: Family Provider Family Medicine Geriatric Medicine; PCP Family Medicine Geriatric Medicine; Referring Provider Internal Medicine Cardiovascular Disease; Visit Provider Internal Medicine Cardiovascular Disease
DX: Z98.890 Other specified postprocedural states (principal); I48.0 Paroxysmal atrial fibrillation; I48.92 Unspecified atrial flutter; Z95.2 Presence of prosthetic heart valve; Z79.01 Long term (current) use of anticoagulants
CPT/HCPCS: 36416; 85610

== ENCOUNTER 2021-10-30 14:36 | Outpatient (RCR) | payer MEDICARE, OTHER, SELFPAY ==
[2021-10-16 10:17] VITALS: BMI 22.4
[2021-10-30 14:56] LABS: INR Fingerstick 2.2; Prothrombin Time Fingerstick 25.7 SEC (11.7-14.9)
== END 2021-11-15 18:00 | disposition home or self-care (01) ==
LOC: MTLAB 14:36
PROVIDERS: Family Provider Family Medicine Geriatric Medicine; PCP Family Medicine Geriatric Medicine; Referring Provider Internal Medicine Cardiovascular Disease; Visit Provider Internal Medicine Cardiovascular Disease
DX: I48.0 Paroxysmal atrial fibrillation (principal); I48.92 Unspecified atrial flutter; Z95.2 Presence of prosthetic heart valve; Z79.01 Long term (current) use of anticoagulants; Z98.890 Other specified postprocedural states
CPT/HCPCS: 36416; 85610

== ENCOUNTER 2021-12-03 14:25 | Outpatient (CLI) | payer MEDICARE, OTHER, SELFPAY ==
[2021-12-03 17:18] LABS: Absolute Lymphocyte Count 0.64 X10^3/uL (0.83-4.51); Absolute Neutrophil Count 3.7 X10^3/uL (2.0-7.7); Basophil# 0.02 X10^3/uL; Basophil% 0.4 % (0-1); Eosinophil# 0.08 X10^3/uL; Eosinophils% 1.6 % (0-5); Hematocrit 35.9 % (37-47); Hemoglobin 11.9 g/dL (12.0-15.0); Lymphocyte # 0.64 X10^3/ul (0.83-4.51); Mean Corp Hgb Conc 33.1 g/dL (32-36); Mean Corpuscular Hgb 31.6 pg (27.0-32.0); Mean Corpuscular Volume 95.5 fL (81-99); Mean Platelet Vol. 11.3 fl (6.2-12.0); Monocyte# 0.49 X10^3/uL; Monocyte% 9.9 % (0-10); NRBC Flagged by Analyzer 0 % (0-5); Neutrophil # 3.69 X10^3/uL (2.7-7.7); Neutrophil % 74.9 % (47-70); Platelet Count 138 K/mm3 (150-450); RBC Distribution Width CV 13.2 % (11.6-14.6); RBC Distribution Width SD 46.8 fl (35.1-43.9); Red Blood Count 3.76 M/mm3 (4.2-5.4); White Blood Count 4.9 K/mm3 (4.4-11.0)
[2021-12-03 17:42] LABS: Vitamin D,25 Hydroxy 64.3 ng/mL
[2021-12-03 17:44] LABS: ALB/GLOB Ratio 1.4 RATIO (0.9-2.4); AST(SGOT) 74 U/L (15-37); Alanine Aminotransfer ALT/SGPT 85 U/L (13-56); Albumin, Serum 3.7 g/dL (3.2-5.0); Alkaline Phosphatase 109 U/L (45-117); Anion Gap 2 (5-15); BUN 38 mg/dL (7-18); BUN/Creat Ratio 41.7 RATIO (10-20); Chloride 103 mmol/L (98-107); Creatinine, Serum 0.91 mg/dL (0.55-1.02); EST Glomerular Filtration Rate 63 mL/min (>60); Est Glom Filt Rate - Afr Amer 76 mL/min (>60); Globulin 2.7 g/dL (2.2-4.2); Glucose 103 mg/dL (74-106); Potassium 4.8 mmol/L (3.5-5.1); Protein, Total 6.4 g/dL (6.4-8.2); Sodium Level 135 mmol/L (136-145)
== END 2021-12-03 23:59 | disposition home or self-care (01) ==
LOC: POLAB3 14:26
PROVIDERS: PCP Family Medicine Geriatric Medicine; Visit Provider Family Medicine Geriatric Medicine
DX: I10 Essential (primary) hypertension (principal); E55.9 Vitamin D deficiency, unspecified
CPT/HCPCS: 36415; 80053; 82306; 84443; 85025

== ENCOUNTER 2021-12-10 12:19 | Outpatient (RCR) | payer MEDICARE, OTHER, SELFPAY ==
[2021-11-16 02:56] VITALS: BMI 22.4
[2021-11-20 14:26] LABS: INR Fingerstick 2.5; Prothrombin Time Fingerstick 29.3 SEC (11.7-14.9)
[2021-12-10 14:43] LABS: International Normalized Ratio 2.9; Prothrombin Time (Protime)PT. 30.2 SECONDS (11.7-14.9)
[2021-12-12 05:07] LABS: HEPATITIS B SURFACE AG Negative (Negative); Hepatitis A IgM Antibody Negative (Negative); Hepatitis B Core AB IgM Negative (Negative)
[2021-12-12 11:25] LABS: Hep C Antibodies <0.1 s/co ratio (0.0-0.9)
== END 2021-12-10 18:00 | disposition home or self-care (01) ==
LOC: MTLAB 12:19
PROVIDERS: Family Provider Family Medicine Geriatric Medicine; PCP Family Medicine Geriatric Medicine; Referring Provider Internal Medicine Cardiovascular Disease; Visit Provider Internal Medicine Cardiovascular Disease
DX: I48.0 Paroxysmal atrial fibrillation (principal); I48.92 Unspecified atrial flutter; Z79.01 Long term (current) use of anticoagulants; Z95.2 Presence of prosthetic heart valve; Z98.890 Other specified postprocedural states
CPT/HCPCS: 36415; 36416; 80074; 85610

== ENCOUNTER → 2021-12-10 | Outpatient (CLI) | payer MEDICARE, OTHER, SELFPAY ==
--- NOTE | 2021-12-10 13:50 | RAD_ITS ---
STUDY: X-RAY CHEST REASON FOR EXAM: Female, 81 years old. Dyspnea TECHNIQUE: PA and lateral views of the chest. COMPARISON: 09/05/2021 FINDINGS: Two lead cardiac conduction device is seen via the right subclavian vein with lead tips projecting over the right atrium and right ventricle, respectively. Left breast implant with capsular calcification. The lungs are clear but hyper expanded. There is no demonstrated pleural abnormality. Normal size heart. Sternotomy wires are noted. Normal visualized pulmonary arteries. There is atherosclerotic calcification of the aortic arch with tortuosity. There is demineralization of the osseous structures. Normal visualized ribs, clavicles, and shoulders. There is no demonstrated abnormality of the visualized soft tissue structures of the upper abdomen. RAD/Chest PA and Lateral IMPRESSION: 1. No acute cardiopulmonary process. Electronically Signed: Renan Mcconnell MD ([place]) at 14:46 EDT ,
== END | disposition home or self-care (01) ==
LOC: RAD 13:43
PROVIDERS: PCP Family Medicine Geriatric Medicine; Referring Provider Nurse Practitioner Gerontology; Visit Provider Nurse Practitioner Gerontology
DX: R06.00 Dyspnea, unspecified (principal)
CPT/HCPCS: 71046

== ENCOUNTER → 2021-12-10 | Outpatient (CLI) | payer MEDICARE, OTHER, SELFPAY ==
--- NOTE | 2021-12-10 10:25 | US_ITS ---
STUDY: ABDOMINAL ULTRASOUND - RIGHT UPPER QUADRANT REASON FOR VISIT: Female, 81 years old ABN LEVELS OF OTHER SERUM ENZYMES TECHNIQUE: Ultrasound evaluation of the right upper quadrant was performed with real-time and static peters-scale imaging. TECHNICAL QUALITY: Adequate. COMPARISON: Abdomen ultrasound from 03/08/2021, 08/01/2017 FINDINGS: Liver: The liver measures 12.9 cm. There is normal echogenicity of the liver. No bile duct dilation. The direction of portal flow is hepatopetal. No masses. Gallbladder: Normal distended gallbladder. The gallbladder wall measures 2 mm. There is a negative sonographic Nunes''s sign. There is no pericholecystic fluid. There are no gallstones. Common Bile Duct (C.B.D.): The common bile duct measures 3 mm and is within normal limits. Pancreas: The visualized portions of the pancreatic head, body, and tail are unremarkable. Right Kidney: Normal size of the right kidney. The right kidney measures 8.8 x 4.5 x 3.9 cm. Normal renal cortex. The right cortex measures 1.3 cm. No cystic or solid mass. There is no right hydronephrosis. US/Abdomen Limited IMPRESSION: Normal right upper quadrant ultrasound examination. Electronically Signed: Jayme Smith, at 13:45 EDT ,
== END | disposition home or self-care (01) ==
PROVIDERS: PCP Family Medicine Geriatric Medicine; Referring Provider Family Medicine Geriatric Medicine; Visit Provider Family Medicine Geriatric Medicine
DX: R74.8 Abnormal levels of other serum enzymes (principal); I48.0 Paroxysmal atrial fibrillation; I48.92 Unspecified atrial flutter; Z98.890 Other specified postprocedural states; Z95.2 Presence of prosthetic heart valve; Z79.01 Long term (current) use of anticoagulants; R94.5 Abnormal results of liver function studies; R06.00 Dyspnea, unspecified
CPT/HCPCS: 36415; 71046; 76705; 80074; 85610

== ENCOUNTER → 2021-12-14 | Outpatient (CLI) | payer MEDICARE, OTHER, SELFPAY ==
[2021-12-14 17:46] LABS: Anion Gap 7 (5-15); BUN 32 mg/dL (7-18); BUN/Creat Ratio 34.3 RATIO (10-20); Calcium,Total 9.5 mg/dL (8.5-10.1); Chloride 103 mmol/L (98-107); Creatinine, Serum 0.93 mg/dL (0.55-1.02); EST Glomerular Filtration Rate 61 mL/min (>60); Est Glom Filt Rate - Afr Amer 74 mL/min (>60); Glucose 161 mg/dL (74-106); Potassium 4.6 mmol/L (3.5-5.1); Sodium Level 137 mmol/L (136-145)
[2021-12-14 18:11] LABS: BNP,B-Type NATRIURETIC PEPTIDE 342.8 pg/mL (0-100)
== END | disposition home or self-care (01) ==
LOC: MTLAB 14:42
PROVIDERS: PCP Family Medicine Geriatric Medicine; Referring Provider Nurse Practitioner Gerontology; Visit Provider Nurse Practitioner Gerontology
DX: R06.00 Dyspnea, unspecified (principal)
CPT/HCPCS: 36415; 80048; 83880

== ENCOUNTER → 2021-12-28 | Outpatient (CLI) | payer MEDICARE, OTHER, SELFPAY ==
--- NOTE | 2021-12-28 14:17 | RAD_ITS ---
EXAM: XR CHEST, 2 VIEWS CLINICAL INDICATION: PAIN TECHNIQUE: Frontal and lateral views of the chest. This report was created using [employer] report generation technology. COMPARISON: December 10, 2021, September 05, 2021, March 02, 2021. FINDINGS: LUNGS AND PLEURAL SPACES: Similar appearance of pulmonary hyperinflation and chronic lung changes, with increased lucency in the upper lung cisneros. Stable mild curvilinear peripheral calcification over the lung apices. No acute-appearing infiltrates or effusions. No pneumothorax. HEART: Similar borderline cardiomegaly. Right subclavian pacemaker leads are stable. MEDIASTINUM: Central airways and mediastinal contour are unremarkable. BONES/JOINTS: Unremarkable. SOFT TISSUES: Again noted peripherally calcified left breast implant. RAD/Chest PA and Lateral IMPRESSION: Stable chest. Chronic changes including COPD and borderline cardiomegaly. Electronically Signed: Christine Johnson MD at 20:31 EDT ,
[2021-12-28 17:41] LABS: Absolute Lymphocyte Count 0.77 X10^3/uL (0.83-4.51); Absolute Neutrophil Count 3.9 X10^3/uL (2.0-7.7); Basophil# 0.02 X10^3/uL; Basophil% 0.4 % (0-1); Eosinophil# 0.15 X10^3/uL; Eosinophils% 2.7 % (0-5); Hematocrit 37.9 % (37-47); Hemoglobin 11.9 g/dL (12.0-15.0); Lymphocyte # 0.77 X10^3/ul (0.83-4.51); Lymphocyte % 13.9 % (19-41); Mean Corp Hgb Conc 31.4 g/dL (32-36); Mean Corpuscular Volume 98.7 fL (81-99); Mean Platelet Vol. 11.3 fl (6.2-12.0); Monocyte# 0.64 X10^3/uL; Monocyte% 11.6 % (0-10); NRBC Flagged by Analyzer 0 % (0-5); Neutrophil # 3.93 X10^3/uL (2.7-7.7); Platelet Count 147 K/mm3 (150-450); RBC Distribution Width CV 13.2 % (11.6-14.6); RBC Distribution Width SD 47.6 fl (35.1-43.9); Red Blood Count 3.84 M/mm3 (4.2-5.4); White Blood Count 5.5 K/mm3 (4.4-11.0)
[2021-12-28 17:51] LABS: Erythrocyte Sedimentation Rate 2 mm/hr (0-30)
[2021-12-28 18:28] LABS: BUN 37 mg/dL (7-18); Creatinine, Serum 0.92 mg/dL (0.55-1.02); EST Glomerular Filtration Rate 63 mL/min (>60); Glucose 113 mg/dL (74-106)
[2021-12-28 18:29] LABS: ALB/GLOB Ratio 1.3 RATIO (0.9-2.4); AST(SGOT) 62 U/L (15-37); Alanine Aminotransfer ALT/SGPT 76 U/L (13-56); Albumin, Serum 3.8 g/dL (3.2-5.0); Alkaline Phosphatase 117 U/L (45-117); Anion Gap 6 (5-15); BUN/Creat Ratio 40.4 RATIO (10-20); CRP < 2.90 mg/L (0.0-3.0); Calcium,Total 9.1 mg/dL (8.5-10.1); Chloride 104 mmol/L (98-107); Est Glom Filt Rate - Afr Amer 76 mL/min (>60); Globulin 2.9 g/dL (2.2-4.2); Potassium 4.8 mmol/L (3.5-5.1); Protein, Total 6.7 g/dL (6.4-8.2); Rheumatoid Factor < 10.0 IU/mL (<15); Sodium Level 138 mmol/L (136-145)
[2021-12-31 09:54] LABS: Hepatitis B Surface Antibody Non-Reactive; Hepatitis B Surface Antigen Non-Reactive (Nonreactive); Hepatitis C Antibody Non-Reactive (Nonreactive)
[2022-01-01 00:07] LABS: QNTFERON TB Mitogen Value > 10.00 IU/mL (.); QNTFERON TB Nil Value 0.02 IU/mL (.); QNTFERON TB1+ Ag Value 0.03 IU/mL (.); QNTFERON TB2+ Ag Value 0.03 IU/mL (.)
[2022-01-01 09:35] LABS: CCP IgG Antibodies 1 units (0-19); QNTIFERON TB Positive Criteria Negative (Negative)
== END | disposition home or self-care (01) ==
LOC: MTLAB 14:15
PROVIDERS: PCP Family Medicine Geriatric Medicine; Referring Provider Internal Medicine Rheumatology; Visit Provider Internal Medicine Rheumatology
DX: M06.4 Inflammatory polyarthropathy (principal); I50.9 Heart failure, unspecified; I48.91 Unspecified atrial fibrillation; Z79.899 Other long term (current) drug therapy; M79.7 Fibromyalgia; M17.0 Bilateral primary osteoarthritis of knee; K21.00 Gastro-esophageal reflux disease with esophagitis, without bleeding; M21.40 Flat foot [pes planus] (acquired), unspecified foot; I10 Essential (primary) hypertension; E03.9 Hypothyroidism, unspecified; Z85.3 Personal history of malignant neoplasm of breast
CPT/HCPCS: 36415; 71046; 80053; 85025; 85652; 86140; 86200; 86431; 86480; 86706; 86803; 87340

== ENCOUNTER 2022-02-05 14:11 | Outpatient (RCR) | payer MEDICARE, OTHER, SELFPAY ==
[2021-12-16 05:23] VITALS: BMI 22.4
[2022-02-05 14:31] LABS: INR Fingerstick 3.2; Prothrombin Time Fingerstick 36.5 SEC (11.7-14.9)
== END 2022-02-14 16:00 | disposition home or self-care (01) ==
LOC: MTLAB 14:11
PROVIDERS: Family Provider Family Medicine Geriatric Medicine; PCP Family Medicine Geriatric Medicine; Referring Provider Internal Medicine Cardiovascular Disease; Visit Provider Internal Medicine Cardiovascular Disease
DX: I48.0 Paroxysmal atrial fibrillation (principal); Z79.01 Long term (current) use of anticoagulants; Z95.2 Presence of prosthetic heart valve; Z98.890 Other specified postprocedural states; I48.92 Unspecified atrial flutter
CPT/HCPCS: 36416; 85610

== ENCOUNTER 2022-03-05 15:32 | Outpatient (RCR) | payer MEDICARE, OTHER, SELFPAY ==
[2022-02-15 08:09] VITALS: BMI 22.4
[2022-02-26 13:21] LABS: INR Fingerstick 4.4; Prothrombin Time Fingerstick 48.5 SEC (11.7-14.9)
[2022-03-05 15:41] LABS: INR Fingerstick 3.1; Prothrombin Time Fingerstick 34.8 SEC (11.7-14.9)
== END 2022-03-17 03:23 | disposition home or self-care (01) ==
LOC: MTLAB 15:32
PROVIDERS: Family Provider Family Medicine Geriatric Medicine; PCP Family Medicine Geriatric Medicine; Referring Provider Internal Medicine Cardiovascular Disease; Visit Provider Internal Medicine Cardiovascular Disease
DX: I48.0 Paroxysmal atrial fibrillation (principal); I48.92 Unspecified atrial flutter; Z79.01 Long term (current) use of anticoagulants; Z95.2 Presence of prosthetic heart valve; Z98.890 Other specified postprocedural states
CPT/HCPCS: 36416; 85610

== ENCOUNTER → 2022-03-11 | Outpatient (CLI) | payer MEDICARE, OTHER, SELFPAY ==
[2022-03-11 17:20] LABS: Absolute Lymphocyte Count 0.63 X10^3/uL (0.83-4.51); Absolute Neutrophil Count 3.8 X10^3/uL (2.0-7.7); Basophil# 0.02 X10^3/uL; Basophil% 0.4 % (0-1); Eosinophil# 0.07 X10^3/uL; Eosinophils% 1.3 % (0-5); Hematocrit 37.7 % (37-47); Lymphocyte # 0.63 X10^3/ul (0.83-4.51); Lymphocyte % 12.1 % (19-41); Mean Corp Hgb Conc 31.8 g/dL (32-36); Mean Corpuscular Hgb 31.6 pg (27.0-32.0); Mean Corpuscular Volume 99.2 fL (81-99); Mean Platelet Vol. 11.2 fl (6.2-12.0); Monocyte# 0.65 X10^3/uL; Monocyte% 12.5 % (0-10); NRBC Flagged by Analyzer 0 % (0-5); Neutrophil # 3.81 X10^3/uL (2.7-7.7); Neutrophil % 73.3 % (47-70); Platelet Count 147 K/mm3 (150-450); RBC Distribution Width CV 13.1 % (11.6-14.6); RBC Distribution Width SD 47.8 fl (35.1-43.9); White Blood Count 5.2 K/mm3 (4.4-11.0)
[2022-03-11 18:17] LABS: Anion Gap 4 (5-15); BUN 34 mg/dL (7-18); BUN/Creat Ratio 34.7 RATIO (10-20); Chloride 102 mmol/L (98-107); Creatinine, Serum 0.98 mg/dL (0.55-1.02); EST Glomerular Filtration Rate 58 mL/min (>60); Est Glom Filt Rate - Afr Amer 70 mL/min (>60); Glucose 115 mg/dL (74-106); Sodium Level 136 mmol/L (136-145)
[2022-03-11 18:19] LABS: BNP,B-Type NATRIURETIC PEPTIDE 306.4 pg/mL (0-100)
== END | disposition home or self-care (01) ==
LOC: LAB 16:11
PROVIDERS: PCP Family Medicine Geriatric Medicine; Visit Provider Nurse Practitioner Gerontology
DX: R06.00 Dyspnea, unspecified (principal)
CPT/HCPCS: 36415; 80048; 83880; 85025

== ENCOUNTER 2022-03-18 14:46 | Outpatient (RCR) | payer MEDICARE, OTHER, SELFPAY ==
[2022-03-17 03:23] VITALS: BMI 22.4
[2022-03-18 17:58] LABS: International Normalized Ratio 3.1; Prothrombin Time (Protime)PT. 31.3 SECONDS (11.7-14.9)
[2022-03-18 18:11] LABS: Anion Gap 5 (5-15); BUN 39 mg/dL (7-18); BUN/Creat Ratio 36.4 RATIO (10-20); Calcium,Total 9.2 mg/dL (8.5-10.1); Chloride 99 mmol/L (98-107); Creatinine, Serum 1.07 mg/dL (0.55-1.02); EST Glomerular Filtration Rate 52 mL/min (>60); Est Glom Filt Rate - Afr Amer 63 mL/min (>60); Glucose 101 mg/dL (74-106); Potassium 4.6 mmol/L (3.5-5.1); Sodium Level 136 mmol/L (136-145)
== END 2022-03-18 18:00 | disposition home or self-care (01) ==
LOC: MTLAB 14:46
PROVIDERS: Nurse Practitioner Gerontology; Family Provider Family Medicine Geriatric Medicine; PCP Family Medicine Geriatric Medicine; Referring Provider Internal Medicine Cardiovascular Disease; Visit Provider Internal Medicine Cardiovascular Disease
DX: I48.0 Paroxysmal atrial fibrillation (principal); I48.92 Unspecified atrial flutter; Z79.01 Long term (current) use of anticoagulants; Z95.2 Presence of prosthetic heart valve; Z98.890 Other specified postprocedural states
CPT/HCPCS: 36415; 80048; 85610

== ENCOUNTER 2022-04-30 14:35 | Outpatient (RCR) | payer MEDICARE, OTHER, SELFPAY ==
[2022-04-18 00:57] VITALS: BMI 22.4
[2022-04-19 14:45] LABS: INR Fingerstick 5.1; Prothrombin Time Fingerstick 55.8 SEC (11.7-14.9)
[2022-04-19 17:35] LABS: Prothrombin Time (Protime)PT. 48.1 SECONDS (11.7-14.9)
[2022-04-19 17:41] LABS: International Normalized Ratio 5.3
[2022-04-24 14:55] LABS: INR Fingerstick 3.5
[2022-04-30 14:46] LABS: INR Fingerstick 3.9; Prothrombin Time Fingerstick 43.4 SEC (11.7-14.9)
== END 2022-04-30 18:00 | disposition home or self-care (01) ==
LOC: LAB 14:35
PROVIDERS: Family Provider Family Medicine Geriatric Medicine; PCP Family Medicine Geriatric Medicine; Referring Provider Internal Medicine Cardiovascular Disease; Visit Provider Internal Medicine Cardiovascular Disease
DX: I48.0 Paroxysmal atrial fibrillation (principal); Z79.01 Long term (current) use of anticoagulants; Z95.2 Presence of prosthetic heart valve; Z98.890 Other specified postprocedural states
CPT/HCPCS: 36416; 85610

== ENCOUNTER → 2022-04-30 | Outpatient (CLI) | payer MEDICARE, OTHER, SELFPAY ==
--- NOTE | 2022-04-30 13:50 | ECHOD_ITS ---
Reason For Study: Dyspnea/SOB Procedure This was a 2D Doppler, Color Flow transthoracic echocardiogram. Technically difficult study due to breast reconstruction and Mechanical MV. The study was technically difficult. Exam performed in department. Left Ventricle Normal LV size. Severe global left ventricular systolic dysfunction. The estimated ejection fraction is 15 %. Stage 3 diastolic dysfunction. Right Ventricle Normal RV size. ICD or pacer leads identified within the right ventricle. Normal systolic function. Atria The left atrium is moderately enlarged. Normal right atrium. ICD or pacer leads identified within the right atrium. No doppler evidence for ASD. Mitral Valve Stable appearing mechanical mitral valve apparatus. Trivial transvalvular insufficiency of the mitral valve. Tricuspid Valve Normal tricuspid valve. Moderately severe (3+) tricuspid valve insufficiency. Right ventricular systolic pressure estimated to be 36 mmHg. Aortic Valve Trisinus/trileaflet aortic valve. Normal aortic valve. Pulmonic Valve The pulmonic valve is not well visualized. Great Vessels Normal sized aortic root. Pericardium/Pleural No pericardial effusion. MMode/2D Measurements & Calculations LVIDd: 4.3 cm IVSd: 0.83 cm Ao root diam: 2.8 cm LVIDs: 3.5 cm LVPWd: 0.90 cm RVDd: 3.7 cm FS: 19.0 % LAV(MOD-bp): 81.9 ml LA A4 area: 24.8 cm2 RA A4 area: 15.8 cm2 LAV(MOD-bp) Indexed: 53.8 ml/m2 LAV(MOD-sp2): 74.3 ml LAV(MOD-sp4): 82.3 ml Time Measurements MV dec time: 0.20 sec Doppler Measurements & Calculations MV E max mitch: 156.2 cm/sec Lat Peak E' Mitch: 7.4 cm/sec Med Peak E' Mitch: 5.7 cm/sec MV A max mitch: 41.3 cm/sec E/E' lat: 21.1 E/E' med: 27.3 MV E/A: 3.8 MV V2 max: 170.6 cm/sec MV P1/2t max mitch: 171.8 cm/sec Ao V2 max: 171.6 cm/sec MV max P.7 mmHg MV P1/2t: 64.0 msec Ao max P.8 mmHg MV V2 mean: 68.7 cm/sec MV dec slope: 785.7 cm/sec2 Ao V2 mean: 125.0 cm/sec MV mean P.6 mmHg MVA(P1/2t): 3.4 cm2 Ao mean P.0 mmHg MV V2 VTI: 32.3 cm Ao V2 VTI: 36.6 cm LV V1 max: 120.0 cm/sec TR max mitch: 284.6 cm/sec LV V1 max P.8 mmHg TR max P.5 mmHg LV V1 mean P.3 mmHg LV V1 mean: 85.5 cm/sec LV V1 VTI: 29.6 cm ECHO/Echo Complete Interpretation Summary The study was technically difficult. Severe global left ventricular systolic dysfunction. The estimated ejection fraction is 15 %. The left atrium is moderately enlarged. Stable appearing mechanical mitral valve apparatus. Trivial transvalvular insufficiency of the mitral valve. Moderately severe (3+) tricuspid valve insufficiency. Right ventricular systolic pressure estimated to be 36 mmHg. Stage 3 diastolic dysfunction. ICD or pacer leads identified within the right atrium ICD or pacer leads identified within the right ventricle. Ordering Physician: John Hayden Referring Physician: Giovana Cisneros Performed By: Rafal Castelan RCS
== END | disposition home or self-care (01) ==
PROVIDERS: PCP Family Medicine Geriatric Medicine; Referring Provider Nurse Practitioner Gerontology; Visit Provider Nurse Practitioner Gerontology
DX: R06.00 Dyspnea, unspecified (principal); I42.0 Dilated cardiomyopathy; Z95.2 Presence of prosthetic heart valve; Z98.890 Other specified postprocedural states
CPT/HCPCS: 36416; 85610; 93306

== ENCOUNTER → 2022-05-29 | Outpatient (CLI) | payer MEDICARE, OTHER, SELFPAY ==
--- NOTE | 2022-05-29 14:52 | CT_ITS ---
STUDY: CT LUMBAR SPINE WITHOUT CONTRAST REASON FOR EXAM: Female, 81 years old. Lumbar spinal stenosis, weakness in legs RADIATION DOSAGE (If Supplied By Facility): CTDIvol = ( 13.88 ) mGy, DLP = ( 455.39 ) mGycm TECHNIQUE: The patient was scanned in a multi detector CT scanner. High resolution transaxial imaging was performed. Images were obtained of the lumbar spine. Sagittal and coronal images were reconstructed. Individualized dose optimization techniques were used for this CT. COMPARISON: February 06, 2021. FINDINGS: Normal lumbar lordosis. There is no substantial scoliosis. Normal vertebrae of the lumbar spine. L1-2: Left lateral disc osteophyte. Normal disc height and morphology. Normal bilateral facet joints. Normal central canal and bilateral lateral recesses. Mild left neural foramina narrowing. L2-3: Mild disc space narrowing. Left lateral osteophyte. Posterior osteophyte produces mild spinal stenosis. Mild left neural foraminal narrowing. L3-4: Disc space narrowing. Ligamentum flavum and facet hypertrophy without significant spinal stenosis. Mild left neural foraminal narrowing. L4-5: Disc space narrowing. Ligamentum flavum and facet hypertrophy. Moderate spinal stenosis. Bilateral neural foraminal narrowing. L5-S1: Normal endplates. Normal disc height and morphology. Normal bilateral facet joints. Normal central canal and bilateral lateral recesses. Normal bilateral intervertebral neural foramina. Normal visualized paraspinous soft tissue structures. CT/Spine Lumbar without Contrast IMPRESSION: Multilevel degenerative changes of the lumbar spine similar in appearance to the prior study. Electronically Signed: Braydon Mercado MD at 4:01 EDT Reading Location ID and State: [id number] / , Service support ,
--- NOTE | 2022-05-29 15:00 | RAD_ITS ---
STUDY: X-RAY - PELVIS AND RIGHT HIP REASON FOR EXAM: Female, 81 years old. Right hip pain TECHNIQUE: 3 views of the pelvis and hip. COMPARISON: March 08, 2020 FINDINGS: There is a non-specific bowel gas pattern. Normal visualized soft tissue structures. Normal bilateral iliac wings, sacroiliac joints and visualized sacrum. Normal bilateral superior and inferior pubic rami. Normal pubic symphysis. Degenerative changes of both hips.ischial tuberosities. Mild bilateral hip joint space narrowing and bilateral osteophytosis. Femoral arterial calcifications bilaterally. RAD/HIP, UNI W/ Pelvis 2-3 Views IMPRESSION: Degenerative changes of both hips. Electronically Signed: Braydon Mercado MD at 4:22 EDT Reading Location ID and State: [id number] / , Service support ,
== END | disposition home or self-care (01) ==
PROVIDERS: PCP Family Medicine Geriatric Medicine; Referring Provider Psychiatry & Neurology Neurology; Visit Provider Psychiatry & Neurology Neurology
DX: M48.061 Spinal stenosis, lumbar region without neurogenic claudication (principal); Z79.01 Long term (current) use of anticoagulants
CPT/HCPCS: 36415; 36416; 72131; 73502; 85610

== ENCOUNTER → 2022-06-10 | Outpatient (CLI) | payer MEDICARE, OTHER, SELFPAY ==
--- NOTE | 2022-06-10 14:55 | CT_ITS ---
STUDY: CT BRAIN WITHOUT CONTRAST REASON FOR EXAM: Female, 81 years old. CLOSED HEAD INJURY. Patient is on anticoagulants. RADIATION DOSAGE (If Supplied By Facility): CTDIvol = ( 44.99 ) mGy, DLP = ( 796.11 ) mGycm TECHNIQUE: Transaxial CT imaging of the brain was performed without administration of intravenous contrast material. Individualized dose optimization techniques were used for this CT. COMPARISON: Comparison is made with prior study dated 01/18/2019. FINDINGS: Normal soft tissue structures. There is hyperostosis frontalis internus. There is mild cerebral atrophy with widening of the extra-axial spaces and ventricular dilatation. There are areas of decreased attenuation within the white matter tracts of the supratentorial brain, consistent with microvascular disease changes. Normal basal ganglia and thalami. Normal brainstem. There is mild cerebellar atrophy. There is no intracranial hemorrhage. There are no findings of an acute ischemic infarction. Atherosclerotic plaque formation of the vertebral arteries and cavernous portions of the internal carotid arteries bilaterally. Normal visualized paranasal sinuses. CT/Brain/Head without Contrast IMPRESSION: Chronic involutional changes of the brain. Electronically Signed: Aman Real MD at 15:25 EDT ,
[2022-06-10 17:18] LABS: Absolute Lymphocyte Count 0.53 X10^3/uL (0.83-4.51); Absolute Neutrophil Count 4.3 X10^3/uL (2.0-7.7); Basophil# 0.03 X10^3/uL; Basophil% 0.5 % (0-1); Eosinophil# 0.18 X10^3/uL; Eosinophils% 3.3 % (0-5); Hematocrit 36.6 % (37-47); Hemoglobin 11.7 g/dL (12.0-15.0); Lymphocyte # 0.53 X10^3/ul (0.83-4.51); Lymphocyte % 9.6 % (19-41); Mean Corpuscular Hgb 31.8 pg (27.0-32.0); Mean Corpuscular Volume 99.5 fL (81-99); Mean Platelet Vol. 11.3 fl (6.2-12.0); Monocyte% 9.1 % (0-10); NRBC Flagged by Analyzer 0 % (0-5); Neutrophil # 4.25 X10^3/uL (2.7-7.7); POSITIVE DIFFERENTIAL YES; Platelet Count 156 K/mm3 (150-450); RBC Distribution Width CV 13.3 % (11.6-14.6); RBC Distribution Width SD 49.1 fl (35.1-43.9); Red Blood Count 3.68 M/mm3 (4.2-5.4); White Blood Count 5.5 K/mm3 (4.4-11.0)
[2022-06-10 17:31] LABS: International Normalized Ratio 2.5
[2022-06-10 17:47] LABS: Differential Indicated SCAN CRITERIA MET
[2022-06-10 17:52] LABS: Differential Comment SCANNED
[2022-06-10 17:57] LABS: Vitamin D,25 Hydroxy 74.2 ng/mL
[2022-06-10 18:01] LABS: ALB/GLOB Ratio 1.3 RATIO (0.9-2.4); AST(SGOT) 23 U/L (15-37); Alanine Aminotransfer ALT/SGPT 41 U/L (13-56); Albumin, Serum 3.7 g/dL (3.2-5.0); Alkaline Phosphatase 127 U/L (45-117); Anion Gap 4 (5-15); BUN 25 mg/dL (7-18); BUN/Creat Ratio 29.9 RATIO (10-20); Calcium,Total 9.1 mg/dL (8.5-10.1); Chloride 104 mmol/L (98-107); Creatinine, Serum 0.84 mg/dL (0.55-1.02); EST Glomerular Filtration Rate 70 mL/min (>60); Est Glom Filt Rate - Afr Amer 84 mL/min (>60); Globulin 2.9 g/dL (2.2-4.2); Glucose 107 mg/dL (74-106); Potassium 3.9 mmol/L (3.5-5.1); Protein, Total 6.6 g/dL (6.4-8.2); Sodium Level 137 mmol/L (136-145); Thyroid Stim Hormone (TSH) 2.01 uIU/mL (0.358-3.74)
== END | disposition home or self-care (01) ==
LOC: POLAB3 14:56 → CT 15:08
PROVIDERS: Internal Medicine Cardiovascular Disease; PCP Family Medicine Geriatric Medicine; Referring Provider Family Medicine Geriatric Medicine; Visit Provider Family Medicine Geriatric Medicine
DX: S09.90XA Unspecified injury of head, initial encounter (principal); I48.0 Paroxysmal atrial fibrillation; Z98.890 Other specified postprocedural states; Z95.2 Presence of prosthetic heart valve; Z79.01 Long term (current) use of anticoagulants
CPT/HCPCS: 36415; 70450; 80053; 82306; 84443; 85025; 85610

== ENCOUNTER 2022-06-17 14:27 | Outpatient (RCR) | payer MEDICARE, OTHER, SELFPAY ==
[2022-05-17 19:27] VITALS: BMI 22.4
[2022-05-20 15:45] LABS: INR Fingerstick 2.9; Prothrombin Time Fingerstick 32.8 SEC (11.7-14.9)
[2022-05-29 16:07] LABS: International Normalized Ratio 6.4
[2022-05-31 14:46] LABS: INR Fingerstick 5.3; Prothrombin Time Fingerstick 57.3 SEC (11.7-14.9)
[2022-05-31 18:13] LABS: International Normalized Ratio 2.8; Prothrombin Time (Protime)PT. 29.2 SECONDS (11.7-14.9)
[2022-06-05 18:04] LABS: International Normalized Ratio 1.3; Prothrombin Time (Protime)PT. 15.9 SECONDS (11.7-14.9)
[2022-06-17 14:36] LABS: INR Fingerstick 2.1; Prothrombin Time Fingerstick 24.9 SEC (11.7-14.9)
== END 2022-06-17 18:00 | disposition home or self-care (01) ==
LOC: MTLAB 14:27
PROVIDERS: Family Provider Family Medicine Geriatric Medicine; PCP Family Medicine Geriatric Medicine; Referring Provider Internal Medicine Cardiovascular Disease; Visit Provider Internal Medicine Cardiovascular Disease
DX: I48.0 Paroxysmal atrial fibrillation (principal); Z95.2 Presence of prosthetic heart valve; Z79.01 Long term (current) use of anticoagulants; Z98.890 Other specified postprocedural states
CPT/HCPCS: 36415; 36416; 85610

== ENCOUNTER 2022-06-27 14:49 | Outpatient (RCR) | payer MEDICARE, OTHER, SELFPAY ==
[2022-06-18 10:21] VITALS: BMI 22.4
[2022-06-24 14:20] LABS: INR Fingerstick 1.9; Prothrombin Time Fingerstick 22.2 SEC (11.7-14.9)
[2022-06-27 14:56] LABS: INR Fingerstick 2.8
== END 2022-07-17 18:00 | disposition home or self-care (01) ==
LOC: MTLAB 14:49
PROVIDERS: Family Provider Family Medicine Geriatric Medicine; PCP Family Medicine Geriatric Medicine; Referring Provider Internal Medicine Cardiovascular Disease; Visit Provider Internal Medicine Cardiovascular Disease
DX: I48.0 Paroxysmal atrial fibrillation (principal); Z95.2 Presence of prosthetic heart valve; Z79.01 Long term (current) use of anticoagulants; Z98.890 Other specified postprocedural states
CPT/HCPCS: 36416; 85610

== ENCOUNTER 2022-08-14 13:36 | Outpatient (RCR) | payer MEDICARE, OTHER, SELFPAY ==
[2022-07-18 02:20] VITALS: BMI 22.4
[2022-07-19 14:45] LABS: INR Fingerstick 2.2; Prothrombin Time Fingerstick 25.5 SEC (11.7-14.9)
[2022-07-31 14:06] LABS: INR Fingerstick 2.3; Prothrombin Time Fingerstick 26.6 SEC (11.7-14.9)
[2022-08-14 13:45] LABS: INR Fingerstick 2.6; Prothrombin Time Fingerstick 29.8 SEC (11.7-14.9)
== END 2022-08-14 18:00 | disposition home or self-care (01) ==
LOC: MTLAB 13:36
PROVIDERS: Family Provider Family Medicine Geriatric Medicine; PCP Family Medicine Geriatric Medicine; Referring Provider Internal Medicine Cardiovascular Disease; Visit Provider Internal Medicine Cardiovascular Disease
DX: I48.0 Paroxysmal atrial fibrillation (principal); Z95.2 Presence of prosthetic heart valve; Z79.01 Long term (current) use of anticoagulants; Z98.890 Other specified postprocedural states
CPT/HCPCS: 36416; 85610

== ENCOUNTER 2022-09-17 14:54 | Outpatient (RCR) | payer MEDICARE, OTHER, SELFPAY ==
[2022-08-18 05:51] VITALS: BMI 22.4
[2022-09-03 15:26] LABS: INR Fingerstick 2.3; Prothrombin Time Fingerstick 27.2 SEC (11.7-14.9)
[2022-09-18 16:45] LABS: INR Fingerstick 3.1; Prothrombin Time Fingerstick 34.8 SEC (11.7-14.9)
== END 2022-09-17 16:54 | disposition home or self-care (01) ==
LOC: MTLAB 14:54
PROVIDERS: Family Provider Family Medicine Geriatric Medicine; PCP Family Medicine Geriatric Medicine; Referring Provider Internal Medicine Cardiovascular Disease; Visit Provider Internal Medicine Cardiovascular Disease
DX: I48.0 Paroxysmal atrial fibrillation (principal); Z95.2 Presence of prosthetic heart valve; Z79.01 Long term (current) use of anticoagulants; Z98.890 Other specified postprocedural states
CPT/HCPCS: 36416; 85610

== ENCOUNTER 2022-10-07 14:09 | Outpatient (RCR) | payer MEDICARE, OTHER, SELFPAY ==
[2022-09-18 07:34] VITALS: BMI 22.4
[2022-10-08 13:50] LABS: INR Fingerstick 2.3; Prothrombin Time Fingerstick 27.1 SEC (11.7-14.9)
== END 2022-10-07 18:00 | disposition home or self-care (01) ==
LOC: MTLAB 14:09
PROVIDERS: Family Provider Family Medicine Geriatric Medicine; PCP Family Medicine Geriatric Medicine; Referring Provider Internal Medicine Cardiovascular Disease; Visit Provider Internal Medicine Cardiovascular Disease
DX: I48.0 Paroxysmal atrial fibrillation (principal); Z95.2 Presence of prosthetic heart valve; Z79.01 Long term (current) use of anticoagulants; Z98.890 Other specified postprocedural states
CPT/HCPCS: 36416; 85610

== ENCOUNTER → 2022-10-21 | Outpatient (CLI) | payer MEDICARE, OTHER, SELFPAY ==
--- NOTE | 2022-10-21 14:47 | NEURO_ITS ---
NCS and/or EMG Patient Report Ordering Doctor: Mazin Hopkins DATE OF SERVICE: 10/21/22 Indication: Bilateral lower extremity weakness and sensory disturbances. Symptoms have been present for ~8 years, but worsening in recent months. History of axial and radicular back pain (right greater than left). Findings: Nerve conduction studies were performed in the right and left lower extremity. The right peroneal motor study recording the extensor digitorum brevis showed a reduced amplitude, normal distal latency and normal conduction velocity. No conduction block or focal slowing was present across the fibular neck. The right peroneal motor study recording the tibialis anterior showed a reduced amplitude, normal distal latency and normal conduction velocity. No conduction block or focal slowing was present across the fibular neck. The right tibial motor study recording the abductor hallucis brevis showed a normal amplitude, normal distal latency and normal conduction velocity. The right sural sensory response showed a normal amplitude and conduction velocity. The right superficial peroneal sensory response showed a normal amplitude and conduction velocity. The left peroneal motor study recording the extensor digitorum brevis showed a reduced amplitude, normal distal latency and normal conduction velocity. No conduction block or focal slowing was present across the fibular neck. The left peroneal motor study recording the tibialis anterior showed a reduced amplitude, normal distal latency and normal conduction velocity. No conduction block or focal slowing was present across the fibular neck. The left tibial motor study recording the abductor hallucis brevis showed a normal amplitude, normal distal latency and normal conduction velocity. Left sural sensory response showed a normal amplitude and conduction velocity. Left superficial peroneal sensory response showed a normal amplitude and conduction velocity. Needle EMG of the right lower extremity muscles was performed. Certain muscles, including the lumbar paraspinal muscles, were not sampled as the patient is therapeutically anticoagulated with warfarin. No denervation was present in any muscle. Insertional activity was decreased in the tibialis anterior and vastus medialis. Motor units in the tibialis anterior and vastus medialis were distant, but with reduced recruitment. Motor units in the extensor hallucis longus, rectus femoris, and tenor fascia latae were large amplitude, long duration with increased polyphasia. Needle EMG of the left lower extremity muscles was performed. Certain muscles, including the lumbar paraspinal muscles, were not sampled as the patient is therapeutically anticoagulated with warfarin. No denervation was present in any muscle. Insertional activity was decreased in the tibialis anterior. Motor units in the tibialis anterior, extensor hallucis longus, vastus medialis, and tenor f ascia latae were large amplitude, long duration with increased polyphasia. Impression: This is an abnormal study. There is electrophysiologic evidence consistent with chronic, bilateral, polyradiculopathy (L4 and L5). More proximal myotomes could not be sampled safely due to the use of warfarin. In addition, there was no electrophysiologic evidence of a superimposed peripheral neuropathy in either the right or left lower extremity. Silvestre Flower D.O. Multi Select Codes Neurology Neurology Interp Codes: 03352-99 Musc test done w/n test comp (interp) (Qty:2) and 75831-58 Nrv cndj test 9-10 studies (interp)
== END | disposition home or self-care (01) ==
LOC: PSN 13:06
PROVIDERS: PCP Family Medicine Geriatric Medicine; Visit Provider Psychiatry & Neurology Neurology
DX: R53.1 Weakness (principal); R26.9 Unspecified abnormalities of gait and mobility; M79.671 Pain in right foot; M79.672 Pain in left foot; M48.061 Spinal stenosis, lumbar region without neurogenic claudication
CPT/HCPCS: 36416; 85610; 95886; 95911

== ENCOUNTER 2022-11-11 15:17 | Outpatient (RCR) | payer MEDICARE, OTHER, SELFPAY ==
[2022-10-15 23:09] VITALS: BMI 22.4
[2022-10-21 15:11] LABS: INR Fingerstick 2.4; Prothrombin Time Fingerstick 28.2 SEC (11.7-14.9)
[2022-11-12 09:51] LABS: INR Fingerstick 2.4; Prothrombin Time Fingerstick 27.7 SEC (11.7-14.9)
== END 2022-11-15 18:00 | disposition home or self-care (01) ==
LOC: MTLAB 15:17
PROVIDERS: Family Provider Family Medicine Geriatric Medicine; PCP Family Medicine Geriatric Medicine; Referring Provider Internal Medicine Cardiovascular Disease; Visit Provider Internal Medicine Cardiovascular Disease
DX: I48.0 Paroxysmal atrial fibrillation (principal); Z95.2 Presence of prosthetic heart valve; Z79.01 Long term (current) use of anticoagulants
CPT/HCPCS: 36416; 85610

== ENCOUNTER 2022-11-26 14:59 | Outpatient (RCR) | payer MEDICARE, OTHER, SELFPAY ==
[2022-11-15 20:49] VITALS: BMI 22.4
[2022-11-27 09:16] LABS: INR Fingerstick 3.4; Prothrombin Time Fingerstick 36.3 SEC (11.7-14.9)
== END 2022-12-15 05:16 | disposition home or self-care (01) ==
LOC: MTLAB 14:59
PROVIDERS: Family Provider Family Medicine Geriatric Medicine; PCP Family Medicine Geriatric Medicine; Referring Provider Internal Medicine Cardiovascular Disease; Visit Provider Internal Medicine Cardiovascular Disease
DX: I48.0 Paroxysmal atrial fibrillation (principal); Z95.2 Presence of prosthetic heart valve; Z79.01 Long term (current) use of anticoagulants
CPT/HCPCS: 36416; 85610

== ENCOUNTER → 2022-12-17 | Outpatient (CLI) | payer MEDICARE, OTHER, SELFPAY ==
[2022-12-17 17:37] LABS: Absolute Lymphocyte Count 0.62 X10^3/uL (0.83-4.51); Absolute Neutrophil Count 3.9 X10^3/uL (2.0-7.7); Basophil# 0.02 X10^3/uL; Basophil% 0.4 % (0-1); Eosinophil# 0.05 X10^3/uL; Hematocrit 37.4 % (37-47); Hemoglobin 12.1 g/dL (12.0-15.0); Lymphocyte # 0.62 X10^3/ul (0.83-4.51); Lymphocyte % 12.4 % (19-41); Mean Corp Hgb Conc 32.4 g/dL (32-36); Mean Corpuscular Hgb 32.2 pg (27.0-32.0); Mean Corpuscular Volume 99.5 fL (81-99); Monocyte# 0.45 X10^3/uL; NRBC Flagged by Analyzer 0 % (0-5); Neutrophil # 3.85 X10^3/uL (2.7-7.7); Platelet Count 129 K/mm3 (150-450); RBC Distribution Width CV 13.3 % (11.6-14.6); RBC Distribution Width SD 48.4 fl (35.1-43.9); Red Blood Count 3.76 M/mm3 (4.2-5.4)
[2022-12-17 18:28] LABS: Vitamin D,25 Hydroxy 78.2 ng/mL
[2022-12-17 18:58] LABS: ALB/GLOB Ratio 1.4 RATIO (0.9-2.4); AST(SGOT) 36 U/L (15-37); Alanine Aminotransfer ALT/SGPT 56 U/L (13-56); Albumin, Serum 3.7 g/dL (3.2-5.0); Alkaline Phosphatase 117 U/L (45-117); Anion Gap 8 (5-15); BUN 31 mg/dL (7-18); BUN/Creat Ratio 31.9 RATIO (10-20); Chloride 105 mmol/L (98-107); Cholesterol 170 mg/dL (200); Creatinine, Serum 0.97 mg/dL (0.55-1.02); EST Glomerular Filtration Rate 58 mL/min (>60); Est Glom Filt Rate - Afr Amer 70 mL/min (>60); Globulin 2.7 g/dL (2.2-4.2); Glucose 167 mg/dL (74-106); High Density Lipoprotein 87 mg/dL; Potassium 4.8 mmol/L (3.5-5.1); Protein, Total 6.4 g/dL (6.4-8.2); Sodium Level 136 mmol/L (136-145); Thyroid Stim Hormone (TSH) 2.77 uIU/mL (0.358-3.74); Triglycerides 63 mg/dL; Very Low Density Lipoprotein 13 mg/dL (5-40)
== END | disposition home or self-care (01) ==
LOC: POLAB3 13:58
PROVIDERS: PCP Family Medicine Geriatric Medicine; Visit Provider Family Medicine Geriatric Medicine
DX: E55.9 Vitamin D deficiency, unspecified (principal); I10 Essential (primary) hypertension; E78.5 Hyperlipidemia, unspecified
CPT/HCPCS: 36415; 80053; 80061; 82306; 84443; 85025

== ENCOUNTER 2022-12-20 14:19 | Outpatient (RCR) | payer MEDICARE, OTHER, SELFPAY ==
[2022-12-15 05:16] VITALS: BMI 22.4
[2022-12-20 14:26] LABS: INR Fingerstick 2.3; Prothrombin Time Fingerstick 25.2 SEC (11.7-14.9)
== END 2022-12-20 15:19 | disposition home or self-care (01) ==
LOC: MTLAB 14:19
PROVIDERS: Family Provider Family Medicine Geriatric Medicine; PCP Family Medicine Geriatric Medicine; Referring Provider Internal Medicine Cardiovascular Disease; Visit Provider Internal Medicine Cardiovascular Disease
DX: I48.0 Paroxysmal atrial fibrillation (principal); Z95.2 Presence of prosthetic heart valve; Z79.01 Long term (current) use of anticoagulants; Z98.890 Other specified postprocedural states
CPT/HCPCS: 36416; 85610

== ENCOUNTER → 2023-01-28 | Outpatient (CLI) | payer MEDICARE, OTHER, SELFPAY ==
[2023-01-28 16:26] LABS: ALB/GLOB Ratio 1.4 RATIO (0.9-2.4); AST(SGOT) 36 U/L (15-37); Alanine Aminotransfer ALT/SGPT 61 U/L (13-56); Alkaline Phosphatase 124 U/L (45-117); Anion Gap 6 (5-15); BUN 24 mg/dL (7-18); BUN/Creat Ratio 31.2 RATIO (10-20); Calcium,Total 9.5 mg/dL (8.5-10.1); Chloride 102 mmol/L (98-107); Creatinine, Serum 0.77 mg/dL (0.55-1.02); EST Glomerular Filtration Rate 77 mL/min (>60); Est Glom Filt Rate - Afr Amer 93 mL/min (>60); Globulin 2.8 g/dL (2.2-4.2); Glucose 131 mg/dL (74-106); Potassium 4.7 mmol/L (3.5-5.1); Protein, Total 6.8 g/dL (6.4-8.2); Sodium Level 136 mmol/L (136-145)
[2023-01-30 05:07] LABS: HEPATITIS B SURFACE AG Negative (Negative); Hep C Antibodies Non Reactive (Non Reactive); Hepatitis A IgM Antibody Negative (Negative); Hepatitis B Core AB IgM Negative (Negative)
== END | disposition home or self-care (01) ==
LOC: LAB 14:22
PROVIDERS: PCP Family Medicine Geriatric Medicine; Referring Provider Family Medicine Geriatric Medicine; Visit Provider Family Medicine Geriatric Medicine
DX: I50.22 Chronic systolic (congestive) heart failure (principal); R06.02 Shortness of breath; R74.01 Elevation of levels of liver transaminase levels
CPT/HCPCS: 36415; 80053; 80074

== ENCOUNTER 2023-02-03 12:16 | Outpatient (RCR) | payer MEDICARE, OTHER, SELFPAY ==
[2023-01-16 08:02] VITALS: BMI 22.4
[2023-01-21 07:47] LABS: Prothrombin Time Fingerstick 21.7 SEC (11.7-14.9)
--- NOTE | 2023-01-27 17:22 | RAD_ITS ---
STUDY: X-RAY CHEST REASON FOR EXAM: Female, 82 years old. Shortness of breath. TECHNIQUE: PA and lateral views of the chest. COMPARISON: December 28, 2021. FINDINGS: There is hyperinflation of the lungs consistent with chronic obstructive lung disease (COPD). There are bilateral pleural effusions and subsegmental atelectasis. This was not present on the previous exam. Sternal cerclage wires are present from a prior sternotomy. The heart is borderline enlarged but unchanged. Stable right-sided cardiac pacemaker. Normal mediastinum and irene. Normal visualized pulmonary arteries. There is atherosclerotic calcification of the aortic arch with tortuosity. There is demineralization of the osseous structures. Normal visualized ribs, clavicles, and shoulders. There is a stable calcified left breast implant. There is no demonstrated abnormality of the visualized soft tissue structures of the upper abdomen. RAD/Chest PA and Lateral IMPRESSION: 1. Slightly increased bilateral pleural effusions without other major interval change. Electronically Signed: Marshall Arredondo DO at 17:50 EDT ,
--- NOTE | 2023-01-27 17:30 | RAD_ITS ---
STUDY: X-RAY - ABDOMEN/PELVIS REASON FOR EXAM: Female, 82 years old. Nausea. TECHNIQUE: Two AP supine views of the abdomen and pelvis. COMPARISON: None. FINDINGS: Small bilateral pleural effusions. Borderline cardiomegaly with cardiac pacemaker. There is a nonspecific bowel gas pattern. Air is seen throughout the colon and within the stomach. There is air in nondilated small bowel loops in the pelvis. There is no demonstrated free abdominal air. The visualized liver, spleen and kidneys are grossly normal in size and morphology. Normal soft tissue structures. There are diffuse degenerative changes of the visualized lumbar spine. There are degenerative changes of bilateral hips. RAD/Abdomen Single View IMPRESSION: 1. Nonspecific bowel gas pattern without evidence of obstruction. 2. Borderline cardiomegaly with cardiac pacemaker and bilateral pleural effusions. 3. Degenerative changes of the lumbar spine and hips. Electronically Signed: Marshall Arredondo DO at 17:52 EDT ,
[2023-01-27 17:50] LABS: Absolute Lymphocyte Count 0.87 X10^3/uL (0.83-4.51); Absolute Neutrophil Count 4.7 X10^3/uL (2.0-7.7); Basophil# 0.02 X10^3/uL; Basophil% 0.3 % (0-1); Eosinophil# 0.12 X10^3/uL; Eosinophils% 1.8 % (0-5); Hematocrit 38.3 % (37-47); Hemoglobin 12.5 g/dL (12.0-15.0); Lymphocyte # 0.87 X10^3/ul (0.83-4.51); Lymphocyte % 13.4 % (19-41); Mean Corp Hgb Conc 32.6 g/dL (32-36); Mean Corpuscular Hgb 31.8 pg (27.0-32.0); Mean Corpuscular Volume 97.5 fL (81-99); Mean Platelet Vol. 11.2 fl (6.2-12.0); Monocyte# 0.82 X10^3/uL; Monocyte% 12.6 % (0-10); NRBC Flagged by Analyzer 0 % (0-5); Neutrophil # 4.65 X10^3/uL (2.7-7.7); Neutrophil % 71.7 % (47-70); Platelet Count 151 K/mm3 (150-450); RBC Distribution Width CV 13.4 % (11.6-14.6); RBC Distribution Width SD 48.7 fl (35.1-43.9); Red Blood Count 3.93 M/mm3 (4.2-5.4); White Blood Count 6.5 K/mm3 (4.4-11.0)
[2023-01-27 18:16] LABS: International Normalized Ratio 2.4; Prothrombin Time (Protime)PT. 26.1 SECONDS (11.7-14.9)
[2023-01-27 18:17] LABS: ALB/GLOB Ratio 1.5 RATIO (0.9-2.4); AST(SGOT) 53 U/L (15-37); Alanine Aminotransfer ALT/SGPT 74 U/L (13-56); Alkaline Phosphatase 136 U/L (45-117); Anion Gap 5 (5-15); BUN 26 mg/dL (7-18); BUN/Creat Ratio 32.5 RATIO (10-20); CPK Total, Creatine Kinase 57 U/L (26-192); Calcium,Total 9.3 mg/dL (8.5-10.1); Chloride 102 mmol/L (98-107); EST Glomerular Filtration Rate 73 mL/min (>60); Est Glom Filt Rate - Afr Amer 88 mL/min (>60); Globulin 2.7 g/dL (2.2-4.2); Glucose 100 mg/dL (74-106); Potassium 5.5 mmol/L (3.5-5.1); Protein, Total 6.7 g/dL (6.4-8.2); Sodium Level 134 mmol/L (136-145); Thyroid Stim Hormone (TSH) 2.68 uIU/mL (0.358-3.74); Troponin-I HS 17 pg/mL (3.0-54.0)
[2023-01-29 02:07] LABS: Myoglobin, Serum 42 ng/mL (25-58)
[2023-02-03 12:36] LABS: International Normalized Ratio 2.2; Prothrombin Time (Protime)PT. 24.5 SECONDS (11.7-14.9)
[2023-02-03 13:33] LABS: ALB/GLOB Ratio 1.2 RATIO (0.9-2.4); AST(SGOT) 35 U/L (15-37); Alanine Aminotransfer ALT/SGPT 41 U/L (13-56); Albumin, Serum 3.6 g/dL (3.2-5.0); Alkaline Phosphatase 103 U/L (45-117); Anion Gap 6 (5-15); BUN 32 mg/dL (7-18); Calcium,Total 9.3 mg/dL (8.5-10.1); Chloride 100 mmol/L (98-107); Creatinine, Serum 0.97 mg/dL (0.55-1.02); EST Glomerular Filtration Rate 58 mL/min (>60); Est Glom Filt Rate - Afr Amer 71 mL/min (>60); Globulin 2.9 g/dL (2.2-4.2); Glucose 145 mg/dL (74-106); Potassium 4.9 mmol/L (3.5-5.1); Protein, Total 6.5 g/dL (6.4-8.2); Sodium Level 135 mmol/L (136-145)
== END 2023-02-03 18:00 | disposition home or self-care (01) ==
LOC: LAB 12:16
PROVIDERS: Internal Medicine Cardiovascular Disease; Family Provider Family Medicine Geriatric Medicine; PCP Family Medicine Geriatric Medicine; Referring Provider Nurse Practitioner Gerontology; Visit Provider Nurse Practitioner Gerontology
DX: I48.0 Paroxysmal atrial fibrillation (principal); Z95.2 Presence of prosthetic heart valve; Z79.01 Long term (current) use of anticoagulants; E87.5 Hyperkalemia; R06.02 Shortness of breath
CPT/HCPCS: 36415; 36416; 71046; 74018; 80053; 82550; 83874; 83880; 84443; 84484; 85025; 85610

== ENCOUNTER 2023-02-14 09:52 | Emergency (ER) | payer MEDICARE, OTHER, SELFPAY ==
[2023-02-14 09:54] VITALS: BP 131/63; PULSE 86; RESP 14; TEMP 35.7; O2SAT 98; BMI 22.6
--- NOTE | 2023-02-14 10:02 | EKG12_ITS ---
Test Reason : Blood Pressure : / mmHG Vent. Rate : 086 BPM Atrial Rate : 086 BPM P-R Int : 000 ms QRS Dur : 172 ms QT Int : 424 ms P-R-T Axes : 000 -75 091 degrees QTc Int : 507 ms Ventricular-paced rhythm Abnormal ECG Confirmed by ANNA WEAVER, ROSA ([id number]), publications editor SARAI GONG ([id number]) on 02/17/2023 12:43:30 PM Referred By: RUT Confirmed By:ROSA CASTILLO MD
--- NOTE | 2023-02-14 10:09 | EDS_ITS ---
HPI History of Present Illness Chief Complaint: Palpitations Informant: patient Onset/Context/Timing Onset: Days Activity at onset: gradual Timing: Intermittent Relieved By: Nothing Associated Symptoms: Negative for Nausea, Vomiting or Cough Narrative Narrative: 82-year-old male with a history of cardiomyopathy, A-fib on Coumadin and a pacemaker defibrillator which she has had for around 15 years. Says she has been having some intermittent palpitations. She denies chest pain. Some mild shortness of breath. No fever or chills. No vomiting or diarrhea. No melena. Prior Similar Symptoms: Yes Recent Illness/Hospitalization: No PE Risk Factors: Negative for Recent Travel/Surgery, Recent Immobilization, Prior DVT or PE, Cancer or OCP + Smoking + >/=35 TAD Risk Factors: Negative for Marfan's Syndrome PFSH [facility] Medical History Anxiety Anxiety states Arthritis Atrial dysrhythmia Bladder disease Cancer Cardiac pacemaker Cardiology follow-up encounter Chronic systolic congestive heart failure Dilated cardiomyopathy Essential hypertension Fibromyalgia Gastric reflux High cholesterol History of breast cancer History of CHF (congestive heart failure) History of echocardiogram History of esophageal reflux History of irregular heartbeat History of mitral valve disorder History of pain when walking History of stress test HLD (hyperlipidemia) Hypertension 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 Loss of hearing Melanoma Non-smoker 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 tachycardia Paroxysmal atrial fibrillation Paroxysmal atrial flutter Shortness of breath on exertion Thyroid disease Ventricular tachycardia Walker as ambulation aid Wears glasses Home Medications tramadol 50 mg tablet 50 mg PO BID PRN Pain 03/28/15 [History Last Taken 04/01/18] multivitamin 1 ea PO DAILY supplement 08/01/17 [History Last Taken 04/01/18] cholecalciferol (vitamin D3) 50 mcg (2,000 unit) capsule 50 mcg PO DAILY 01/24/21 [History Last Taken Unknown] thyroid (pork) 30 mg tablet 30 mg PO DAILY 01/29/21 [History Last Taken Unknown] acetaminophen 650 mg tablet,extended release 650 mg PO DAILY PRN pain/fever 02/07/21 [History Last Taken Unknown] sacubitril 97 mg-valsartan 103 mg tablet (Entresto) 1 tab PO BID 05/07/21 [History Last Taken Unknown] pravastatin 20 mg tablet 20 mg PO QHS cholesterol #90 tabs 08/26/22 [Rx Last Taken Unknown] carvedilol 25 mg tablet (Coreg) 25 mg PO BID #180 tabs 10/22/22 [Rx Last Taken Unknown] warfarin 5 mg tablet 5 mg PO .COMPLEX #135 tabs 11/21/22 [Rx Last Taken Unknown] furosemide 40 mg tablet 40 mg PO DAILY #90 tabs 01/31/23 [Rx Last Taken Unknown] primidone 50 mg tablet 50 mg PO BID #60 tabs 02/03/23 [Rx Last Taken Unknown] docusate sodium 50 mg capsule (Stool Softener) 50 mg PO DAILY 02/14/23 [History Last Taken Unknown] Allergy/AdvReac Type Severity Reaction Status Date / Time HERMILO Inhibitors Allergy Unknown Verified 02/14/23 10:28 amiodarone Allergy Unknown Verified 02/14/23 10:28 Iodinated Contrast Media [CT] Allergy Nausea/Vom/ Verified 02/14/23 10:28 Diarrhea levothyroxine AdvReac Unknown Nausea Verified 02/14/23 10:28 levothyroxine sodium AdvReac Unknown Nausea Verified 02/14/23 10:28 [From Unithroid] Family History Father Hypertension Cancer Mother Cancer Hypertension Surgical History History of breast implant History of cardiac catheterization History of knee surgery History of local excision of skin lesion History of mastectomy History of mitral valve replacement (~06/1997) History of radiofrequency ablation procedure for cardiac arrhythmia History of tonsillectomy and adenoidectomy Hx of mitral valve repair Presence of implantable cardioverter-defibrillator (ICD) Social History Smoking Status: Never smoker alcohol intake: never caffeine: No ROS ROS ED ROS Narrative Palpitations. No recent illness. Review of Systems ROS Unobtainable: Denies due to encephalopathy Constitutional Constitutional ED: Denies chills or fever(s) Eyes Eyes: Reports none ENT ENT ED: Denies ear pain Cardiovascular Cardiovascular: Reports as per HPI and palpitations; Denies chest pain Respiratory/Chest Respiratory/Chest: Reports dyspnea; Denies cough Gastrointestinal Gastrointestinal: Denies abdominal pain Genitourinary Genitourinary ED: Denies dysuria Musculoskeletal Musculoskeletal: Denies arthralgias Integumentary Denies abscess Neurologic Neurologic: Denies headache(s) Psychiatric Psychiatric: Denies anxiety Endocrine Endocrinology: Denies cold intolerance Hematologic/Lymphatic Hematologic/Lymphatic: Denies easy bleeding Allergic/Immunologic Allergic/Immunologic ED: Denies mouth swelling EXAM Physical Exam Narrative Exam Narrative: 82-year-old female no acute distress. Vital signs stable afebrile. H EENT exam unremarkable. Moist extremities. Neck nontender no JVD. Lungs clear to auscultation bilaterally. Heart regular rate and rhythm paced in the 80s. Chest wall nontender. Pacemaker defibrillator in the right. Abdomen soft nontender. Moving all 4 extremities. Calves are nontender without edema or cords. She is awake and alert. No focal motor deficits. Very benign exam. Const Vital Signs: 02/14/23 09:54 02/14/23 09:58 02/14/23 10:29 Temperature 96.2 F L Temperature Source Temporal Pulse Rate 86 Respiratory Rate 14 Respiratory Effort Normal Non-Labored Blood Pressure 131/63 H Blood Pressure Mean 85 Pulse Ox 98 Oxygen Delivery Method Room Air Room Air 02/14/23 11:01 Temperature Temperature Source Pulse Rate 82 Respiratory Rate 14 Respiratory Effort Blood Pressure 131/60 H Blood Pressure Mean 83 Pulse Ox Oxygen Delivery Method Positive well nourished and well developed; Negative for obese, cachectic, contractures or unkempt General Appearance ED: well developed and NAD; Negative for unkempt, cachectic, contractures or pallor Nutritional Appearance: Negative for cachectic or obese HEENT Reports moist mucous membranes normocephalic and atraumatic; Negative for trauma or tenderness Eyes PERRL and EOMs intact bilaterally General Eye ED: Negative for pale conjunctiva or scleral icterus Neck no lymphadenopathy, supple and no JVD General: Negative for tenderness Chest Wall inspection of chest normal and palpation of chest normal Chest: Negative for tenderness Resp normal respiratory effort and clear to auscultation bilaterally Effort and Inspection: Negative for respiratory distress Auscultation: Negative for rales, rhonchi or wheezes Cardio regular rhythm, S1 normal heart sound, S2 normal heart sound and no murmurs Peripheral Pulses: pulses 2+ throughout GI normal to inspection, nondistended, normoactive bowel sounds, soft to palpation, non-tender, non-distended and no masses Back/Spine no CVA tenderness and no thoracic nor lumbar tenderness General Back: Negative for CVA tenderness Cervical Spine: Negative for cervical spine tenderness Extremity normal to inspection General Extremety ED: Negative for edema General Extremity: Negative for edema Neuro oriented x3 and CN's II-XII intact bilaterally Sensorium / Orientation: awake, oriented to person, oriented to place and oriented to time; Negative for confused, lethargic or stuporous Motor Exam: strength 5/5 throughout Psych mental status grossly normal Appearance: Negative for unkempt Attitude: No agitated Mood & Affect: Negative for depressed or anxious Skin no rashes or lesions noted and no wounds General Skin Exam: Negative for jaundice or pallor Rashes: No rashes noted Trauma: Negative for abrasion MDM MDM MDM Narrative Medical decision making narrative: 82-year-old with palpitations. Has a benign exam. Will undergo cardiac work- up. Check an INR due to her being on Coumadin. Repeat exam patient doing well at 10:50 AM. Awaiting final lab. Exam is benign and unchanged. Expect she will be discharged home. She does have an outpatient ultrasound scheduled earlier this morning to benefit her and after emergency department visit is complete. History & Record Review Discussion w/independent historian: Patient Additional record(s) reviewed:: Prior inpatient record, Prior outpatient record, Prior ED visit and Prior labs Lab Data Attestation: I reviewed the patient's lab results. Lab results narrative: PT/INR is 25 and 2.2. Electrolytes show a gap of 5. BUN and creatinine at 34 and 1. Glucose 162. Troponin is normal at 17. CBC is unremarkable. White count 5. H&H 12.6 and 38. Platelets are slightly low at 118. She has had low platelets in the past. Labs: Laboratory Results - last 24 hr 02/14/23 09:59 WBC 5.4 RBC 3.98 L Hgb 12.6 Hct 38.6 MCV 97.0 MCH 31.7 MCHC 32.6 RDW Std Deviation 47.0 H RDW Coeff of Ana Maria 13.2 Plt Count 118 L MPV 11.3 Immature Gran % (Auto) 0.600 Neut % (Auto) 80.1 H Lymph % (Auto) 8.8 L Trigg % (Auto) 9.0 Eos % (Auto) 1.1 Baso % (Auto) 0.4 Absolute Neuts (auto) 4.4 Absolute Lymphs (auto) 0.48 L Nucleated RBC % 0 PT 25.0 H INR 2.2 Sodium 137 Potassium 4.6 Chloride 103 Carbon Dioxide 29.0 Anion Gap 5 BUN 34 H Creatinine 1.07 H Estim Creat Clear Calc 32.06 Est GFR (MDRD) Af Amer 63 Est GFR (MDRD) Non-Af 52 L BUN/Creatinine Ratio 31.8 H Glucose 162 H Calcium 9.1 Troponin I High Sens 17 Radiography Chest X-Ray - ED: 1 View and Read by ED Physician Diagnostic Testing: Clinical Impression(s) from Imaging Studies Chest X-Ray 02/14/23 10:10 IMPRESSION: Stable opacification of the lingular segment of the left upper lobe most likely representing scarring or chronic volume loss. No other abnormality is seen. Electronically Signed: Aman Real MD at 10:31 EDT , Chest x-ray, portable, single view interpreted both by myself and the radiologist shows no acute abnormality. Normal cardiac silhouette. Chronic scarring of the left lung seen on prior exam. Right-sided pacemaker defibrillator. No infiltrates. No significant effusions. Rhythm Strip Rhythm Strip: Paced Rate: 86 Ectopy: None EKG Initial EKG: Attestation: I personally reviewed and interpreted this EKG as follows: Interpretation: No Acute Injury Pattern and Paced Comments: Paced rhythm rate of 86. No acute signs of [place] or ischemia. Discharge Plan Triage Chief Complaint: Palpitations ED Provider: Yuan Aquino Dx/Rx/DC Orders Clinical Impression: Palpitations, Chronic anticoagulation, History of atrial fibrillation, History of cardiomyopathy Instructions: ED Palpitations Prescriptions: No Action acetaminophen 650 mg tablet extended release 650 mg PO DAILY PRN (Reason: pain/fever) Patient Comments: TAKE 2 TABLETS BY MOUTH THREE TIMES DAILY cholecalciferol (vitamin D3) 50 mcg (2,000 unit) capsule 50 mcg PO DAILY thyroid (pork) 30 mg tablet 30 mg PO DAILY Patient Comments: TAKE 1 TABLET BY MOUTH ONCE DAILY FOR 30 DAYS primidone 50 mg tablet 50 mg PO BID Qty: 60 5RF tramadol 50 MG tablet 50 mg PO BID PRN (Reason: Pain) multivitamin 1 EACH tablet 1 ea PO DAILY Entresto 97-103 mg Tablet 1 tab PO BID Stool Softener 50 mg capsule 50 mg PO DAILY pravastatin 20 mg tablet 20 mg PO QHS Qty: 90 3RF carvedilol [Coreg] 25 mg tablet 25 mg PO BID Qty: 180 3RF Rx Instructions: must administer with a meal/food warfarin 5 mg tablet 5 mg PO .COMPLEX Qty: 135 3RF Protocol: Dose Management Condition: Friday Dose/Route: 7.5 mg Instruction: 1.5 x 5 mg tablets Condition: Friday Dose/Route: 10 mg Instruction: 2 x 5 mg tablets Condition: Friday Dose/Route: 7.5 mg Instruction: 1.5 x 5 mg tablets Condition: Friday Dose/Route: 7.5 mg Instruction: 1.5 x 5 mg tablets Condition: Dose/Route: 7.5 mg Instruction: 1.5 x 5 mg tablets Condition: Friday Dose/Route: 7.5 mg Instruction: 1.5 x 5 mg tablets Condition: Friday Dose/Route: 7.5 mg Instruction: 1.5 x 5 mg tablets Protocol Text: Adjustment Start Date: Friday02/03/23 INR Value: 2.2 INR Date: 02/03/23 Recheck Date: 02/17/23 Rx Instructions: 5 mg orally take one and one half tab (7.5mg) by mouth x6 days and take 1 tab with a 1mg tab (6mg) x1 day or as directed; furosemide 40 mg tablet 40 mg PO DAILY Qty: 90 3RF Primary Care Provider: Romie Landeros Chi Referrals: Romie Landeros Chi, MD [Primary Care Provider] - As Needed Activity Restrictions/Additional Instructions: Your labs, EKG and chest x-ray showed no new significant abnormalities. Follow-up with your doctor as needed. Disposition Disposition: Home, Self Care
--- NOTE | 2023-02-14 10:10 | RAD_ITS ---
STUDY: X-RAY CHEST REASON FOR EXAM: Female, 82 years old. Chest pain TECHNIQUE: Single AP portable view of the chest. COMPARISON: Comparison is made with prior study dated January 27, 2023. FINDINGS: EKG electrodes are seen. Calcified left breast prosthesis. Hyperinflation. Stable opacity in the lingular segment of the left upper lobe suggestive of her chronic changes. The previously seen small right pleural effusion has cleared. There is no demonstrated pleural abnormality. Sternal cerclage wires and vascular clips are present from a prior sternotomy and coronary artery bypass graft procedure (CABG). Mild primarily. Normal mediastinum and irene. There is prominence of the pulmonary hilar arteries without peripheral pulmonary vascular congestion, suggesting pulmonary hypertension. There is atherosclerotic calcification of the aortic arch with tortuosity. Normal visualized thoracic spine. There is degenerative osteoarthritis of the bilateral shoulders. There is no demonstrated abnormality of the visualized soft tissue structures of the upper abdomen. RAD/Chest 1 View (Portable) IMPRESSION: Stable opacification of the lingular segment of the left upper lobe most likely representing scarring or chronic volume loss. No other abnormality is seen. Electronically Signed: Aman Real MD at 10:31 EDT ,
[2023-02-14 10:26] LABS: International Normalized Ratio 2.2
[2023-02-14 10:32] LABS: Anion Gap 5 (5-15); BUN 34 mg/dL (7-18); BUN/Creat Ratio 31.8 RATIO (10-20); Calcium,Total 9.1 mg/dL (8.5-10.1); Chloride 103 mmol/L (98-107); Creatinine, Serum 1.07 mg/dL (0.55-1.02); EST Glomerular Filtration Rate 52 mL/min (>60); Est Glom Filt Rate - Afr Amer 63 mL/min (>60); Estimated Creatinine Clearance 32.06 ml/min; Glucose 162 mg/dL (74-106); Potassium 4.6 mmol/L (3.5-5.1); Sodium Level 137 mmol/L (136-145); Troponin-I HS 17 pg/mL (3.0-54.0)
[2023-02-14 11:01] VITALS: BP 131/60; PULSE 82; RESP 14
[2023-02-14 11:12] LABS: Absolute Lymphocyte Count 0.48 X10^3/uL (0.83-4.51); Absolute Neutrophil Count 4.4 X10^3/uL (2.0-7.7); Basophil# 0.02 X10^3/uL; Basophil% 0.4 % (0-1); Eosinophil# 0.06 X10^3/uL; Eosinophils% 1.1 % (0-5); Hematocrit 38.6 % (37-47); Hemoglobin 12.6 g/dL (12.0-15.0); Lymphocyte # 0.48 X10^3/ul (0.83-4.51); Lymphocyte % 8.8 % (19-41); Mean Corp Hgb Conc 32.6 g/dL (32-36); Mean Corpuscular Hgb 31.7 pg (27.0-32.0); Mean Platelet Vol. 11.3 fl (6.2-12.0); Monocyte# 0.49 X10^3/uL; NRBC Flagged by Analyzer 0 % (0-5); Neutrophil # 4.36 X10^3/uL (2.7-7.7); Neutrophil % 80.1 % (47-70); POSITIVE DIFFERENTIAL YES; Platelet Count 118 K/mm3 (150-450); RBC Distribution Width CV 13.2 % (11.6-14.6); Red Blood Count 3.98 M/mm3 (4.2-5.4); White Blood Count 5.4 K/mm3 (4.4-11.0)
[2023-02-14 11:14] LABS: Differential Indicated SCAN CRITERIA MET
[2023-02-14 11:34] VITALS: PULSE 84
== END 2023-02-14 11:34 | disposition home or self-care (01) ==
PROVIDERS: Emergency Provider Emergency Medicine; PCP Family Medicine Geriatric Medicine; Visit Provider Emergency Medicine
DX: R00.2 Palpitations (principal); I11.0 Hypertensive heart disease with heart failure; I50.22 Chronic systolic (congestive) heart failure; I42.9 Cardiomyopathy, unspecified; I48.0 Paroxysmal atrial fibrillation; E78.00 Pure hypercholesterolemia, unspecified; Z79.01 Long term (current) use of anticoagulants; Z95.810 Presence of automatic (implantable) cardiac defibrillator; Z79.899 Other long term (current) drug therapy; Z90.10 Acquired absence of unspecified breast and nipple; Z95.2 Presence of prosthetic heart valve
CPT/HCPCS: 71045; 76705; 80048; 84484; 85025; 85610; 93005; 99284; A4216

== ENCOUNTER → 2023-02-14 | Outpatient (CLI) | payer MEDICARE, OTHER, SELFPAY ==
--- NOTE | 2023-02-14 09:25 | US_ITS ---
STUDY: ABDOMINAL ULTRASOUND - RIGHT UPPER QUADRANT INDICATION: Female, 82 years old and nausea. TECHNIQUE: Ultrasound evaluation of the right upper quadrant was performed with real-time and static peters-scale imaging. TECHNICAL QUALITY: Adequate. COMPARISON: CT of the abdomen and pelvis dated March 08, 2021 FINDINGS: Liver: The liver measures 12.9 cm. There is normal echogenicity of the liver. No bile duct dilation. The direction of portal flow is hepatopetal. No masses. Gallbladder: The gallbladder is within normal limits with no gallbladder wall thickening. There is a negative sonographic Nunes''s sign. There is no pericholecystic fluid. There are no gallstones. Common Bile Duct (C.B.D.): The common bile duct measures 3.8 mm and is within normal limits. Pancreas: The visualized portions of the pancreatic head, body, and tail are unremarkable. Right Kidney: Normal size of the right kidney. The right kidney measures 9.2 cm in length. Normal renal cortex. No cystic or solid mass. There is no right hydronephrosis. US/Abdomen Limited IMPRESSION: Within normal limits right upper quadrant ultrasound examination. Electronically Signed: Anika Bella MD at 8:05 EDT ,
== END | disposition home or self-care (01) ==
LOC: US 09:23
PROVIDERS: PCP Family Medicine Geriatric Medicine; Referring Provider Family Medicine Geriatric Medicine; Visit Provider Family Medicine Geriatric Medicine
DX: R11.0 Nausea (principal)
CPT/HCPCS: 76705

== ENCOUNTER 2023-03-05 14:02 | Outpatient (RCR) | payer MEDICARE, OTHER, SELFPAY ==
[2023-02-14 20:38] VITALS: BMI 22.4
[2023-03-05 14:10] LABS: Prothrombin Time Fingerstick 32.5 SEC (11.7-14.9)
== END 2023-03-17 18:00 | disposition home or self-care (01) ==
LOC: MTLAB 14:02
PROVIDERS: Family Provider Family Medicine Geriatric Medicine; PCP Family Medicine Geriatric Medicine; Referring Provider Nurse Practitioner Gerontology; Visit Provider Nurse Practitioner Gerontology
DX: I48.0 Paroxysmal atrial fibrillation (principal); Z95.2 Presence of prosthetic heart valve; Z79.01 Long term (current) use of anticoagulants
CPT/HCPCS: 36416; 85610

== ENCOUNTER 2023-04-08 14:59 | Outpatient (RCR) | payer MEDICARE, OTHER, SELFPAY ==
[2023-03-18 02:17] VITALS: BMI 22.4
[2023-03-19 14:41] LABS: INR Fingerstick 3.3; Prothrombin Time Fingerstick 35.4 SEC (11.7-14.9)
[2023-04-08 15:11] LABS: INR Fingerstick 2.8; Prothrombin Time Fingerstick 30.3 SEC (11.7-14.9)
== END 2023-04-08 18:00 | disposition home or self-care (01) ==
LOC: MTLAB 14:59
PROVIDERS: Family Provider Family Medicine Geriatric Medicine; PCP Family Medicine Geriatric Medicine; Referring Provider Nurse Practitioner Gerontology; Visit Provider Nurse Practitioner Gerontology
DX: I48.0 Paroxysmal atrial fibrillation (principal); Z79.01 Long term (current) use of anticoagulants
CPT/HCPCS: 36416; 85610

== ENCOUNTER → 2023-04-28 | Outpatient (CLI) | payer MEDICARE, OTHER, SELFPAY ==
[2023-04-28 11:29] LABS: Absolute Lymphocyte Count 0.46 X10^3/uL (0.83-4.51); Absolute Neutrophil Count 4.8 X10^3/uL (2.0-7.7); Basophil# 0.02 X10^3/uL; Basophil% 0.3 % (0-1); Differential Indicated SCAN CRITERIA MET; Eosinophil# 0.07 X10^3/uL; Eosinophils% 1.2 % (0-5); Hematocrit 37.2 % (37-47); Hemoglobin 11.9 g/dL (12.0-15.0); Lymphocyte # 0.46 X10^3/ul (0.83-4.51); Lymphocyte % 7.7 % (19-41); Mean Corpuscular Hgb 31.4 pg (27.0-32.0); Mean Corpuscular Volume 98.2 fL (81-99); Mean Platelet Vol. 11.5 fl (6.2-12.0); Monocyte# 0.61 X10^3/uL; Monocyte% 10.2 % (0-10); NRBC Flagged by Analyzer 0 % (0-5); Neutrophil % 80.1 % (47-70); POSITIVE DIFFERENTIAL YES; Platelet Count 117 K/mm3 (150-450); RBC Distribution Width CV 13.5 % (11.6-14.6); RBC Distribution Width SD 48.6 fl (35.1-43.9); Red Blood Count 3.79 M/mm3 (4.2-5.4)
[2023-04-28 12:32] LABS: ALB/GLOB Ratio 1.3 RATIO (0.9-2.4); AST(SGOT) 27 U/L (15-37); Alanine Aminotransfer ALT/SGPT 44 U/L (13-56); Albumin, Serum 3.7 g/dL (3.2-5.0); Alkaline Phosphatase 118 U/L (45-117); Anion Gap 5 (5-15); BUN 28 mg/dL (7-18); BUN/Creat Ratio 32.2 RATIO (10-20); Calcium,Total 9.2 mg/dL (8.5-10.1); Chloride 103 mmol/L (98-107); Creatinine, Serum 0.87 mg/dL (0.55-1.02); EST Glomerular Filtration Rate 66 mL/min (>60); Est Glom Filt Rate - Afr Amer 80 mL/min (>60); Globulin 2.8 g/dL (2.2-4.2); Glucose 129 mg/dL (74-106); Potassium 4.7 mmol/L (3.5-5.1); Protein, Total 6.5 g/dL (6.4-8.2); Sodium Level 136 mmol/L (136-145)
[2023-04-28 12:52] LABS: Anisocytosis 2+; Differential Comment SCANNED; Macrocytosis 1+; Microcytosis 1+
== END | disposition home or self-care (01) ==
LOC: LAB 10:39
PROVIDERS: PCP Family Medicine Geriatric Medicine; Referring Provider Nurse Practitioner Gerontology; Visit Provider Nurse Practitioner Gerontology
DX: R53.1 Weakness (principal)
CPT/HCPCS: 36415; 80053; 85025

== ENCOUNTER 2023-05-06 15:15 | Outpatient (RCR) | payer MEDICARE, OTHER, SELFPAY ==
[2023-04-18 01:57] VITALS: BMI 22.4
[2023-05-06 15:25] LABS: INR Fingerstick 3.1; Prothrombin Time Fingerstick 33.2 SEC (11.7-14.9)
== END 2023-05-06 18:00 | disposition home or self-care (01) ==
LOC: MTLAB 15:15
PROVIDERS: Family Provider Family Medicine Geriatric Medicine; PCP Family Medicine Geriatric Medicine; Referring Provider Nurse Practitioner Gerontology; Visit Provider Nurse Practitioner Gerontology
DX: I48.0 Paroxysmal atrial fibrillation (principal); Z79.01 Long term (current) use of anticoagulants
CPT/HCPCS: 36416; 85610

== ENCOUNTER 2023-06-06 11:12 | Outpatient (RCR) | payer MEDICARE, OTHER, SELFPAY ==
[2023-05-18 04:56] VITALS: BMI 22.4
[2023-06-06 11:19] LABS: INR Fingerstick 3.2; Prothrombin Time Fingerstick 33.9 SEC (11.7-14.9)
== END 2023-06-06 18:00 | disposition home or self-care (01) ==
LOC: LAB 11:12
PROVIDERS: Family Provider Family Medicine Geriatric Medicine; PCP Family Medicine Geriatric Medicine; Referring Provider Nurse Practitioner Gerontology; Visit Provider Nurse Practitioner Gerontology
DX: I48.0 Paroxysmal atrial fibrillation (principal); Z79.01 Long term (current) use of anticoagulants
CPT/HCPCS: 36416; 85610

== ENCOUNTER → 2023-06-06 | Outpatient (CLI) | payer MEDICARE, OTHER, SELFPAY ==
--- NOTE | 2023-06-06 09:26 | US_ITS ---
STUDY: ULTRASOUND BREAST - LEFT REASON FOR EXAM: Female, 82 years old. Prior left mastectomy. Pain at the surgical site. TECHNIQUE: Axial and longitudinal images of the LEFT breast were performed with a high resolution ultrasound transducer. # OF IMAGES: 30 COMPARISON: None. FINDINGS: LEFT Breast: A breast implant is seen. Along its anterior and medial aspect, there is a 1.9 cm x 1.8 cm x 0.7 cm hypoechoic density with posterior acoustical shadowing. A biopsy is recommended. US/Breast Complete Unilateral IMPRESSION: 1.9 cm x 1.8 cm x 0.7 cm hypoechoic density with posterior acoustical shadowing along the anterior medial aspect of the breast implant. Biopsy is recommended. ASSESSMENT CATEGORY: BIRADS Category 4: Suspicious - Biopsy Should Be Considered. A letter regarding these results will be sent to the patient by the facility within 30 days. Electronically Signed: Aman Real MD at 11:14 EDT ,
--- NOTE | 2023-06-06 09:26 | BI_ITS ---
MAMMOGRAPHY - UNILATERAL DIAGNOSTIC: RIGHT BREAST REASON FOR EXAM: Female, 82 years old. Prior left mastectomy with recurrence. PERTINENT HISTORY: Personal history of breast cancer. Prior left mastectomy. Mother with breast cancer. TECHNIQUE: Digital unilateral breast estephania (3D mammographic acquisition) in the CC and MLO projections. 2-D mediolateral oblique (MLO) and craniocaudad (CC) views of both breasts were obtained. CAD: Full Field Digital Mammography with Computer Added Detection was performed. COMPARISON: Comparison is made with prior study of October 11, 2016. FINDINGS: Breast Composition: The breasts are heterogeneously dense, which may obscure small masses. There are no dominant masses or suspicious calcifications. A battery pack from a pacemaker is seen in the axillary region. No other significant abnormalities are identified. There has been no significant change since the prior study. BI/DIAG MAMM W/CAD, UNILAT IMPRESSION: Stable unilateral diagnostic mammogram. One year follow-up mammogram recommended. (A) ASSESSMENT CATEGORY: BIRADS Category 2: Benign. A letter regarding these results will be sent to the patient by the facility within 30 days. Approximately 10% of breast cancers are not detected by mammography. A normal mammogram should not delay biopsy of a clinically suspicious abnormality. Electronically Signed: Aman Real MD at 11:05 EDT ,
== END | disposition home or self-care (01) ==
PROVIDERS: PCP Family Medicine Geriatric Medicine; Referring Provider Family Medicine Geriatric Medicine; Visit Provider Family Medicine Geriatric Medicine
DX: N63.0 Unspecified lump in unspecified breast (principal); R11.0 Nausea; R92.8 Other abnormal and inconclusive findings on diagnostic imaging of breast
CPT/HCPCS: 76641; 77061; 77065; G0279

== ENCOUNTER → 2023-06-16 | Outpatient (CLI) | payer MEDICARE, OTHER, SELFPAY ==
[2023-06-16 14:38] LABS: Absolute Lymphocyte Count 0.58 X10^3/uL (0.83-4.51); Absolute Neutrophil Count 3.8 X10^3/uL (2.0-7.7); Basophil# 0.02 X10^3/uL; Basophil% 0.4 % (0-1); Eosinophil# 0.08 X10^3/uL; Eosinophils% 1.6 % (0-5); Hemoglobin 11.4 g/dL (12.0-15.0); Lymphocyte # 0.58 X10^3/ul (0.83-4.51); Lymphocyte % 11.6 % (19-41); Mean Corp Hgb Conc 31.7 g/dL (32-36); Mean Corpuscular Hgb 31.8 pg (27.0-32.0); Mean Corpuscular Volume 100.3 fL (81-99); Mean Platelet Vol. 11.9 fl (6.2-12.0); Monocyte# 0.53 X10^3/uL; Monocyte% 10.6 % (0-10); NRBC Flagged by Analyzer 0 % (0-5); Neutrophil # 3.75 X10^3/uL (2.7-7.7); Neutrophil % 75.2 % (47-70); POSITIVE DIFFERENTIAL YES; Platelet Count 130 K/mm3 (150-450); RBC Distribution Width CV 13.8 % (11.6-14.6); RBC Distribution Width SD 50.7 fl (35.1-43.9); Red Blood Count 3.59 M/mm3 (4.2-5.4)
--- NOTE | 2023-06-16 14:40 | RAD_ITS ---
STUDY: X-RAY - ABDOMEN/PELVIS REASON FOR EXAM: Female, 82 years old. FECAL IMPACTION OF COLON TECHNIQUE: Two AP supine views of the abdomen and pelvis. COMPARISON: None. FINDINGS: Normal visualized lung bases. Pacemaker leads in place. Increased fecal debris within the colon suggestive of constipation. There is no demonstrated free abdominal air. The visualized liver, spleen and kidneys are grossly normal in size and morphology. Normal soft tissue structures. There are diffuse degenerative changes of the visualized lumbar spine and bilateral hips. Possible diffuse osteopenia.. RAD/Abd Inc Decub and/or Erect IMPRESSION: Constipation. No signs of bowel obstruction or free air. Electronically Signed: Rossy Burdick MD at 0:46 EDT ,
[2023-06-16 14:42] LABS: Differential Indicated SCAN CRITERIA MET
[2023-06-16 14:51] LABS: Vitamin D,25 Hydroxy 71.3 ng/mL
[2023-06-16 15:01] LABS: ALB/GLOB Ratio 1.1 RATIO (0.9-2.4); AST(SGOT) 29 U/L (15-37); Alanine Aminotransfer ALT/SGPT 46 U/L (13-56); Albumin, Serum 3.4 g/dL (3.2-5.0); Alkaline Phosphatase 104 U/L (45-117); Anion Gap 3 (5-15); BUN 33 mg/dL (7-18); BUN/Creat Ratio 36.7 RATIO (10-20); Calcium,Total 8.5 mg/dL (8.5-10.1); Chloride 103 mmol/L (98-107); EST Glomerular Filtration Rate 64 mL/min (>60); Est Glom Filt Rate - Afr Amer 77 mL/min (>60); Glucose 132 mg/dL (74-106); Potassium 4.7 mmol/L (3.5-5.1); Protein, Total 6.4 g/dL (6.4-8.2); Sodium Level 134 mmol/L (136-145); Thyroid Stim Hormone (TSH) 2.38 uIU/mL (0.358-3.74)
== END | disposition home or self-care (01) ==
PROVIDERS: PCP Family Medicine Geriatric Medicine; Referring Provider Family Medicine Geriatric Medicine; Visit Provider Family Medicine Geriatric Medicine
DX: I10 Essential (primary) hypertension (principal); K56.41 Fecal impaction; E55.9 Vitamin D deficiency, unspecified
CPT/HCPCS: 36415; 74019; 80053; 82306; 84443; 85025

== ENCOUNTER 2023-07-14 16:09 | Outpatient (RCR) | payer MEDICARE, OTHER, SELFPAY ==
[2023-06-17 22:31] VITALS: BMI 22.4
[2023-07-14 16:19] LABS: INR Fingerstick 3.7; Prothrombin Time Fingerstick 38.6 SEC (11.7-14.9)
== END 2023-07-17 18:00 | disposition home or self-care (01) ==
LOC: MTLAB 16:09
PROVIDERS: Family Provider Family Medicine Geriatric Medicine; PCP Family Medicine Geriatric Medicine; Referring Provider Nurse Practitioner Gerontology; Visit Provider Nurse Practitioner Gerontology
DX: I48.0 Paroxysmal atrial fibrillation (principal); Z79.01 Long term (current) use of anticoagulants
CPT/HCPCS: 36416; 85610

== ENCOUNTER 2023-08-01 11:29 | Outpatient (RCR) | payer MEDICARE, OTHER, SELFPAY ==
[2023-07-18 04:17] VITALS: BMI 22.4
[2023-08-01 12:13] LABS: International Normalized Ratio 2.7; Prothrombin Time (Protime)PT. 29.2 SECONDS (11.7-14.9)
== END 2023-08-17 18:00 | disposition home or self-care (01) ==
LOC: MTLAB 11:29
PROVIDERS: Family Provider Family Medicine Geriatric Medicine; PCP Family Medicine Geriatric Medicine; Referring Provider Nurse Practitioner Gerontology; Visit Provider Nurse Practitioner Gerontology
DX: I48.0 Paroxysmal atrial fibrillation (principal); Z95.2 Presence of prosthetic heart valve; Z79.01 Long term (current) use of anticoagulants
CPT/HCPCS: 36415; 85610

== ENCOUNTER 2023-08-20 12:20 | Outpatient (RCR) | payer MEDICARE, OTHER, SELFPAY ==
[2023-08-17 23:27] VITALS: BMI 22.4
[2023-08-20 12:36] LABS: Prothrombin Time Fingerstick 32.6 SEC (11.7-14.9)
== END 2023-08-20 18:00 | disposition home or self-care (01) ==
LOC: LAB 12:20
PROVIDERS: Family Provider Family Medicine Geriatric Medicine; PCP Family Medicine Geriatric Medicine; Referring Provider Nurse Practitioner Gerontology; Visit Provider Nurse Practitioner Gerontology
DX: I48.0 Paroxysmal atrial fibrillation (principal); Z79.01 Long term (current) use of anticoagulants
CPT/HCPCS: 36416; 85610

== ENCOUNTER → 2023-08-20 | Outpatient (CLI) | payer MEDICARE, OTHER, SELFPAY ==
--- OUTSIDE RECORDS SUMMARY | 2023-08-20 13:10 | XMS RPT_ITS | CCD ---
Author Name Unknown Address [address] [place] [address] Organization [facility] Care Team Providers Care Curriculum Coach Name Role Phone Cher Gilliland RN Unavailable Unavailable Jackelyn WEAVER, John Hurtado Unavailable Cher Gilliland RN Unavailable Unavailable Karen Cortez Primary Care Provider Malinda Larson Primary Care Provider [phone] PAUL AUSTIN Admitting Unavailable PAUL AUSTIN Attending Unavailable PAUL AUSTIN Primary Care Unavailable Allergies Allergy Classification Reported Allergen(s) Allergy Type Date of Onset Reaction(s) Facility (4 sources) amiodarone Drug Allergy 1 Tremors [facility] Work Phone: (4 sources) Angiotensin Converting Enzyme (Sha) Inhibitors drug allergy 2 cough [facility] Work Phone: (5 sources) iodine Drug Allergy 5 Anaphylaxis [facility] Work Phone: (1 source) Hmg-Coa Reductase Inhibitors (Statins) Drug Intolerance 1 Other: See Comments [facility] Medications Completed/Discontinued Medications Medication Drug Class(es) Dates Sig (Normalized) Sig (Original) amiodarone hydrochloride 200 mg oral tablet (8 sources) Antiarrhythmic Start: 01-23-2011 End: 12-30-2011 take 1 tablet by mouth three times daily, then take 2 tablets by mouth once daily, then take 1 tablet by mouth once daily AMIODARONE HCL 200 MG TABS One tablet by mouth three times daily X 2 weeks, then 2 X daily X 2 weeks, then daily dose AMIODARONE HCL [id number] [place] amoxicillin 500 mg oral tablet (8 sources) Penicillin-class Antibacterial Start: 01-23-2011 End: 10-23-2015 take 4 tablets by mouth every hour AMOXICILLIN 500 MG TABS 4 tablets by mouth 1 hr prior to procedure AMOXICILLIN [id number] John Hayden MD aspirin 81 mg oral tablet (8 sources) Nonsteroidal Anti-inflammatory Drug Start: 01-04-2013 End: 12-04-2015 take 1 tablet by mouth once daily ASPIRIN 81 MG TABS One tablet by mouth daily ASPIRIN [id number] Cher Gilliland RN calcium carbonate 1500 mg / cholecalciferol 200 unt oral tablet (1 source) Vitamin D Start: 10-23-2006 CALCIUM 600 + D(3) 600 MG-200 UNIT TAB Taketwo tablets daily. 0 10/23/2006 Active Problems Active Problems Problem Classification Problem Date Documented Da te Episodic/Chronic Abdominal pain (1 source) Epigastric pain; Translations: [Epigastric pain] 11-08-2015 Episodic Cancer of breast (4 sources) Carcinoma in situ of breast; Translations: [Unspecified type of carcinoma in situ of unspecified breast] Onset: 01-23-2011 01-23-2011 Chronic Cardiac dysrhythmias (12 sources) Ventricular tachycardia; Translations: [Atrial flutter] Onset: 01-23-2011 01-23-2011 Chronic Congestive heart failure; nonhypertensive (8 sources) Congestive heart failure; Translations: [Chronic systolic (congestive) heart failure] Onset: 05-07-2012 05-07-2012 Chronic Diabetes mellitus without complication (2 sources) Type 2 diabetes mellitus without complication; Translations: [Type 2 diabetes mellitus without complication, without long-term current use of insulin] Onset: 03-07-2015 03-08-2016 Chronic Disorders of lipid metabolism (5 sources) Hyperlipidemia; Translations: [Pure hypercholesterolemia ] Onset: 01-23-2011 01-23-2011 Chronic Essential hypertension (5 sources) Hypertensive disorder; Translations: [Essential hypertension] Onset: 09-01-2008 01-23-2011 Chronic Heart valve disorders (14 sources) Heart valve replaced by other means; 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] Onset: 10-26-2009 Resolved: 03-09-2012 01-23-2011 Chronic Melanomas of skin (1 source) 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; Translations: [Melanoma in situ of upper arm] Onset: 01-02-2011 01-02-2011 Chronic Osteoarthritis (1 source) Degenerative joint disease involving multiple joints; Translations: [Generalized osteoarthrosis, unspecified site] 10-24-2005 Chronic Osteoporosis (1 source) Osteoporosis; Translations: [Osteoporosis, unspecified] Onset: 04-23-2007 10-14-2008 Chronic Other connective tissue disease (1 source) Recurrent falls ; Translations: [Recurrent falls] Onset: 03-07-2015 03-07-2015 Marva-; endo-; and myocarditis; cardiomyopathy (9 sources) Cardiomyopathy in diseases classified elsewhere; 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] Onset: 09-01-2008 01-23-2011 Chronic Secondary malignancies (1 source) Secondary malignant neoplasm of skin; Translations: [Secondary malignant neoplasm of skin] Onset: 06-27-2005 06-27-2005 Chronic Unclassified (4 sources) Replacement of mitral valve ; Translations: [Other specified postprocedural states] Onset: 03-09-2012 03-09-2012 Unclassified (4 sources) Long-term drug therapy; Translations: [Other buttermaker continuous churn (current) drug therapy] Onset: 01-23-2011 01-23-2011 Unclassified (4 sources) Implantation of automatic cardiac defibrillator ; Translations: [Presence of automatic (implantable) cardiac defibrillator] Onset: 01-23-2011 01-23-2011 Unclassified (1 source) Rheumatoid factor positive rheumatoid arthritis; Translations: [Rheumatoid arthritis with positive rheumatoid factor] Onset: 12-11-2015 12-11-2015 Past or Other Problems Problem Classification Problem Date Documented Da te Episodic/Chronic Cancer of breast (1 source) History of malignant neoplasm of breast; Translations: [History of breast cancer] Onset: 08-27-2012 08-27-2012 Episodic Cardiac dysrhythmias (4 sources) Palpitations; Translations: [Palpitations] Onset: 01-23-2011 01-23-2011 Episodic Conditions associated with dizziness or vertigo (1 source) Dizziness and giddiness; Translations: [Dizziness and giddiness] Onset: 03-08-2016 03-08-2016 Episodic Diabetes mellitus without complication (1 source) Impaired fasting glycaemia; Translations: [Impaired fasting glucose] Onset: 10-07-2008 10-07-2008 Episodic Malaise and fatigue (1 source) Asthenia; Translations: [Weakness] Onset: 03-08-2016 03-08-2016 Episodic Neoplasms of unspecified nature or uncertain behavior (1 source) Estrogen receptor positive tumor; Translations: [ER+ (estrogen receptor positive status)] Onset: 07-29-2011 07-29-2011 Episodic Unclassified (4 sources) FH: Hypertension; Translations: [Family history of ischemic heart disease and other diseases of the circulatory system] 05-09-2014 Episodic Results Test Name Value Interpretation Reference Range Facil ity Vital Signs Date Time Vital Sign Value Performing Clinician Faci lity 06-04-2017 14:51-0400 BMI (Body Mass Index) 21.99 kg/m2 John Hayden MD [facility] Work Phone: 06-04-2017 14:51-0400 BP Diastolic 48 mm[Hg] John Hayden MD [facility] Work Phone: 06-04-2017 14:51-0400 BP Systolic 100 mm[Hg] John Hayden MD [facility] Work Phone: 06-04-2017 14:51-0400 Height 158.75 cm John Hayden MD [facility] Work Phone: 06-04-2017 14:51-0400 Pulse (Heart Rate) 70 /min [facility] Work Phone: 06-04-2017 14:51-0400 Respiratory Rate 12 /min John Hayden MD [facility] Work Phone: 06-04-2017 14:51-0400 Weight 55.43 kg [facility] Work Phone: 06-17-2016 15:06-0400 BSA (Body Surface Area) 1.57 m2 John Hayden MD [facility] Work Phone: Encounters Encounter Date Encounter Type Care Provider Facility Start: 04-16-2021 End: 04-16-2021 [facility] Start: 09-13-2010 End: 09-13-2010 Patient encounter procedure A Suresh Rivera Work Phone: [facility] Start: 09-13-2010 Results Only A Suresh sheppard Work Phone: [facility] Procedures Date Procedure Procedure Detail Performing Clinician Start: 06-04-2017 End: 06-17-2017 Echocardiography John Hayden MD Start: 06-04-2017 End: 06-04-2017 Follow Up Appt 6 months oJhn Hayden MD Start: 06-04-2017 End: 06-04-2017 PFM John Hayden MD Start: 04-29-2017 End: 04-30-2017 Interrogation eval remote 90 d 1/2/joinery machinist ld dfb Adrianne Plummer PA-C Work Phone: Start: 01-16-2017 End: 01-26-2017 Interrogation eval remote 90 d 1/2/joinery machinist ld dfb Adrianne Plummer PA-C Work Phone: Start: 10-07-2016 End: 10-07-2016 Interrogation eval remote 90 d 1/2/joinery machinist ld dfb Adrianne Plummer PA-C Work Phone: Start: 07-08-2016 End: 07-10-2016 Interrogation eval remote 90 d 1/2/joinery machinist ld dfb Adrianne Plummer PA-C Work Phone: Start: 06-17-2016 End: 08-02-2016 Follow Up Appt 6 months John Hayden MD Start: 06-17-2016 End: 08-02-2016 PFMiriam Hayden MD Start: 04-08-2016 End: 08-02-2016 Follow Up Appt 3 months John Hayden MD Start: 04-08-2016 End: 04-09-2016 Interrogation eval remote 90 d 1/2/joinery machinist ld dfb John Hayden MD Start: 04-08-2016 End: 08-02-2016 Pacer Clinic John Hayden MD Start: 03-25-2016 End: 04-09-2016 *Hepatic Function Panel John Hayden MD Start: 03-25-2016 End: 04-09-2016 Lipid 1996 panel - Serum or Plasma John Hayden MD Start: 01-08-2016 End: 08-02-2016 Follow Up Appt 3 months John Hayden MD Start: 01-08-2016 End: 01-08-2016 Interrogation eval remote 90 d 1/2/joinery machinist ld dfb John Hayden MD Start: 01-08-2016 End: 08-02-2016 Pacer Clinic John Hayden MD Start: 10-23-2015 End: 10-31-2015 Follow Up Appt 6 months John Hayden MD Start: 10-23-2015 End: 10-31-2015 PFM John Hayden MD Start: 10-09-2015 End: 10-31-2015 Follow Up Appt 3 months John Hayden MD Start: 10-09-2015 End: 10-09-2015 Interrogation eval remote 90 d 1/2/joinery machinist ld dfb John Hayden MD Start: 10-09-2015 End: 10-31-2015 Pacer Clinic John Hayden MD Start: 09-20-2015 End: 09-25-2015 *Hepatic Function Panel John Hayden MD Start: 09-20-2015 End: 09-25-2015 Lipid 1996 panel - Serum or Plasma John Hayden MD Start: 07-05-2015 End: 03-05-2016 Follow Up Appt 3 months John Hayden MD Start: 07-05-2015 End: 07-05-2015 Interrogation eval remote 90 d 1/2/joinery machinist ld dfb John Hayden MD Start: 07-05-2015 End: 03-05-2016 Pacer Clinic John Hayden MD Start: 06-02-2015 End: 06-02-2015 Nurse, Teaching, Wound Check (no charge) John Hayden MD Start: 05-09-2015 End: 05-09-2015 Nurse, Teaching, Wound Check (no charge) John Hayden MD Start: 04-27-2015 End: 04-27-2015 Nurse, Teaching, Wound Check (no charge) John Hayden MD Start: 04-25-2015 End: 05-02-2015 CBC W Auto Differential panel - Blood John Hayden MD Start: 04-25-2015 End: 05-02-2015 INR in Platelet poor plasma by Coagulation assay John Hayden MD Start: 04-25-2015 End: 04-25-2015 Nurse, Teaching, Wound Check (no charge) Adrianne Plummer PA-C Work Phone: Start: 04-17-2015 End: 04-17-2015 Nurse, Teaching, Wound Check (no charge) John Hayden MD Start: 04-10-2015 End: 04-10-2015 *CBC with Differential John Hayden MD Start: 04-10-2015 End: 04-10-2015 INR in Platelet poor plasma by Coagulation assay John Hayden MD Start: 04-10-2015 End: 04-10-2015 Nurse, Teaching, Wound Check (no charge) John Hayden MD Start: 04-07-2015 End: 04-07-2015 Nurse, Teaching, Wound Check (no charge) Adrianne Plummer PA-C Work Phone: Start: 04-03-2015 End: 03-05-2016 Follow Up Appt 3 months John Hayden MD Start: 04-03-2015 End: 04-04-2015 Nurse, Teaching, Wound Check (no charge) John Hayden MD Start: 04-03-2015 End: 03-05-2016 Pacer Clinic John Hayden MD Start: 03-30-2015 End: 04-18-2015 *UA - Urinalysis w/o Micro John aguilar MD Start: 03-24-2015 End: 03-25-2015 Documentation of current medications John Hayden MD Start: 03-24-2015 End: 03-24-2015 Ecg routine ecg w/least 12 lds w/i&r John Hayden MD Start: 03-24-2015 End: 03-24-2015 Follow Up Appt 6 months John Hayden MD Start: 03-24-2015 End: 03-24-2015 PFM John Hayden MD Start: 03-24-2015 End: 03-24-2015 Prgrmg eval implantable in prsn dual lead dfb John Hayden MD Start: 03-13-2015 End: 03-27-2015 *BMP John Hayden MD Start: 03-13-2015 End: 03-27-2015 *UA - Urinalysis w/o Micro John aguilar MD Start: 03-13-2015 End: 03-27-2015 CBC W Auto Differential panel - Blood John Hayden MD Start: 03-13-2015 End: 04-18-2015 Chest x-ray John Hayden MD Start: 03-13-2015 End: 04-18-2015 Ecg routine ecg w/least 12 lds w/i&r John Hayden MD Start: 03-13-2015 End: 04-07-2015 INR in Platelet poor plasma by Coagulation assay John Hayden MD Start: 03-13-2015 End: 04-18-2015 Pacemaker Generator Change John aguilar MD Start: 12-21-2014 End: 12-21-2014 Device Interrogation John Hayden MD Start: 12-21-2014 End: 04-18-2015 Follow Up Appt 2 months John Hayden MD Start: 12-21-2014 End: 12-21-2014 Follow Up Appt 3 months John Hayden MD Start: 12-21-2014 End: 04-18-2015 Pacer Clinic John Hayden MD Start: 12-21-2014 End: 12-21-2014 PFM John Hayden MD Start: 12-21-2014 End: 12-22-2014 Prgrmg eval implantable in prsn dual lead dfb John Hayden MD Start: 10-17-2014 End: 11-23-2014 *Hepatic Function Panel John Hayden MD Start: 10-17-2014 End: 11-23-2014 Lipid 1996 panel - Serum or Plasma John Hayden MD Start: 08-22-2014 End: 12-21-2014 Follow Up Appt 3 months John Hayden MD Start: 08-22-2014 End: 04-18-2015 Pacer Clinic John Hayden MD Start: 08-22-2014 End: 08-22-2014 Prgrmg eval implantable in prsn dual lead dfb John Hayden MD Start: 05-09-2014 End: 05-09-2014 Device Interrogation John Hayden MD Start: 05-09-2014 End: 04-18-2015 Follow Up Appt 3 months John Hayden MD Start: 05-09-2014 End: 05-09-2014 Follow Up Appt 6 months John Hayden MD Start: 05-09-2014 End: 04-18-2015 Pacer Clinic John Hayden MD Start: 05-09-2014 End: 05-09-2014 PFM John Hayden MD Start: 05-09-2014 End: 05-09-2014 Prgrmg eval implantable in prsn dual lead dfb John Hayden MD Start: 04-12-2014 End: 04-13-2014 *Hepatic Function Panel John Hayden MD Start: 04-12-2014 End: 04-13-2014 Lipid 1996 panel - Serum or Plasma John Hayden MD Start: 02-03-2014 End: 05-09-2014 Follow Up Appt 3 months Miriam Logan Start: 02-03-2014 End: 05-09-2014 Pacer Clinic Rohan Whitehead MD Start: 02-03-2014 End: 02-03-2014 Prgrmg eval implantable in prsn dual lead dfb Rohan Whitehead MD Start: 10-29-2013 End: 04-13-2014 Device Interrogation John Hayden MD Start: 10-29-2013 End: 04-13-2014 Follow Up Appt 3 months John Hayden MD Start: 10-29-2013 End: 10-29-2013 Follow Up Appt 6 months John Hayden MD Start: 10-29-2013 End: 04-13-2014 Pacer Clinic John Hayden MD Start: 10-29-2013 End: 10-29-2013 PFM John Hayden MD Start: 10-29-2013 End: 10-29-2013 Prgrmg eval implantable in prsn dual lead dfb John Hayden MD Start: 08-02-2013 End: 08-04-2013 *Hepatic Function Panel John Hayden MD Start: 08-02-2013 End: 08-02-2013 Device Interrogation John Hayden MD Start: 08-02-2013 End: 08-02-2013 Follow Up Appt 3 months John Hayden MD Start: 08-02-2013 End: 08-04-2013 Lipid 1996 panel - Serum or Plasma John Hayden MD Start: 08-02-2013 End: 08-02-2013 Pacer Clinic John Hayden MD Start: 08-02-2013 End: 08-02-2013 PFM John Hayden MD Start: 08-02-2013 End: 08-02-2013 Prgrmg eval implantable in prsn dual lead dfb John Hayden MD Start: 06-09-2013 End: 08-02-2013 *Hepatic Function Panel John Hayden MD Start: 06-09-2013 End: 08-02-2013 Lipid 1996 panel - Serum or Plasma John Hayden MD Start: 04-26-2013 End: 04-28-2013 Ecg routine ecg w/least 12 lds w/i&r John Hayden MD Start: 04-26-2013 End: 08-02-2013 Echocardiography John Hayden MD Start: 04-26-2013 End: 04-28-2013 Follow Up Appt 3 months John Hayden MD Start: 04-26-2013 End: 04-28-2013 PFM John Hayden MD Start: 03-03-2013 End: 04-28-2013 Echocardiography Rohan Whitehead MD Start: 03-03-2013 End: 04-28-2013 Pacer Clinic Rohan Whitehead MD Start: 03-03-2013 End: 03-03-2013 Prgrmg eval implantable in prsn dual lead dfb Rohan Whitehead MD Start: 02-24-2013 End: 02-24-2013 Ecg routine ecg w/least 12 lds w/i&r John Hayden MD Start: 02-24-2013 End: 02-24-2013 Follow Up Appt Other John Hayden MD Start: 02-24-2013 End: 02-24-2013 PFM John Hayden MD Start: 02-23-2013 End: 02-24-2013 INR in Platelet poor plasma by Coagulation assay John Hayden MD Start: 12-02-2012 End: 02-24-2013 *BMP Adrianne Plummer PA-C Work Phone: Start: 12-02-2012 End: 02-24-2013 Cardioversion Adrianne Plummer PA-C Work Phone: Start: 12-02-2012 End: 02-24-2013 Chest x-ray Adrianne Plummer PA-C Work Phone: Start: 12-02-2012 End: 12-02-2012 Ecg routine ecg w/least 12 lds w/i&r Adrianne Plummer PA-C Work Phone: Start: 12-02-2012 End: 02-24-2013 INR in Platelet poor plasma by Coagulation assay Adrianne Plummer PA-C Work Phone: Start: 11-26-2012 End: 11-26-2012 Ecg routine ecg w/least 12 lds w/i&r John Hayden MD Start: 11-26-2012 End: 12-02-2012 Follow Up Appt 3 months John Hayden MD Start: 11-26-2012 End: 12-02-2012 Follow Up Appt Other John Hayden MD Start: 11-26-2012 End: 12-02-2012 Pacer Clinic John Hayden MD Start: 11-26-2012 End: 11-26-2012 PFM John Hayden MD Start: 11-26-2012 End: 11-26-2012 Prgrmg eval implantable in prsn dual lead dfb John Hayden MD Start: 08-07-2012 End: 08-07-2012 Device Interrogation John Hayden MD Start: 08-07-2012 End: 08-07-2012 Follow Up Appt 3 months John Hayden MD Start: 05-28-2012 End: 11-26-2012 *BMP John Hayden MD Start: 05-07-2012 End: 05-07-2012 Device Interrogation John Hayden MD Start: 05-07-2012 End: 05-07-2012 Ecg routine ecg w/least 12 lds w/i&r John Hayden MD Start: 05-07-2012 End: 08-07-2012 Echocardiography John Hayden MD Start: 05-07-2012 End: 05-07-2012 eRx Transmitted during this visit (Medicare only) John Hayden MD Start: 05-07-2012 End: 05-07-2012 Follow Up Appt 3 months John Hayden MD Start: 03-09-2012 End: 05-07-2012 24 hour holter monitor John Hayden MD Start: 03-09-2012 End: 03-09-2012 Follow Up Appt 3 months John Hayden MD Start: 12-30-2011 End: 05-07-2012 Device Interrogation John Hayden MD Start: 12-30-2011 End: 03-09-2012 Echocardiography John Hayden MD Start: 12-30-2011 End: 12-30-2011 Follow Up Appt 3 months John Hayden MD Start: 09-13-2010 CONVERTED SURGICAL PATHOLOGY A Suresh Rivera Work Phone: Start: 02-20-2010 Colonoscopy DALTON Rivera Plan of Treatment Date Care Activity Detail Author Start: 04-18-2020 Influenza vaccination INFLUENZA (#1) [facility] Start: 02-21-2020 Colonoscopy COLONOSCOPY [facility] Start: 02-04-2018 End: 02-04-2018 Appointment Appointment [facility] Work Phone: Start: 08-04-2017 End: 08-04-2017 Appointment Appointment [facility] Work Phone: Start: 06-30-2017 End: 06-30-2017 Cardiac Referral Cardiac Referral Bubba Valenzuela, [facility] [place], [address] [place] [address], [id number] [facility] Work Phone: Start: 06-04-2017 End: 06-04-2017 Echocardiography Echocardiogram (complete) [facility] Work Phone: Start: 06-04-2017 End: 06-04-2017 Follow Up Appt 6 months Follow Up Appt 6 months [facility] Work Phone: Start: 06-04-2017 End: 06-04-2017 PFM PFM [facility] Work Phone: Start: 04-29-2017 End: 04-30-2017 Follow Up Appt 3 months Follow Up Appt 3 months [facility] Phone: Start: 04-29-2017 End: 04-30-2017 Pacer Clinic Pacer Clinic [facility] Work Phone: Start: 01-16-2017 End: 01-26-2017 Follow Up Appt 3 months Follow Up Appt 3 months [facility] Work Phone: Start: 01-16-2017 End: 01-26-2017 Pacer Clinic Pacer Clinic [facility] Work Phone: Start: 12-18-2016 End: 12-18-2016 INR Coag RelTime (PPP) *PT/INR - Standing Order [facility] [employer] Work Phone: Start: 10-07-2016 End: 04-09-2016 *Hepatic Function Panel *Hepatic Function Panel [facility] Work Phone: Start: 10-07-2016 End: 10-07-2016 Follow Up Appt 3 months Follow Up Appt 3 months [facility] Work Phone: Start: 10-07-2016 End: 04-09-2016 Lipid panel [AGGREGATE] *Lipid Profile CC PCP [facility] Work Phone: Start: 10-07-2016 End: 10-07-2016 [facility] Work Phone: Start: 09-22-2016 Hepatitis B surface antibody level LDL CHOLESTEROL [facility] Start: 09-04-2016 Hepatitis B screening URINE ALBUMIN:CREATININE RATIO [facility] Start: 07-08-2016 End: 07-10-2016 Follow Up Appt 3 months Follow Up Appt 3 months [facility] Work Phone: Start: 07-08-2016 End: 07-10-2016 [facility] Work Phone: Start: 06-17-2016 End: 08-02-2016 Follow Up Appt 6 months Follow Up Appt 6 months [facility] Work Phone: Start: 06-17-2016 End: 08-02-2016 PFM PFM [facility] Work Phone: Start: 06-11-2016 HbA1c (Bld) [Mass fraction] HBA1C [facility] Start: 04-08-2016 End: 08-02-2016 Follow Up Appt 3 months Follow Up Appt 3 months [facility] Work Phone: Start: 04-08-2016 End: 08-02-2016 [facility] Work Phone: Start: 03-25-2016 End: 04-09-2016 *Hepatic Function Panel *Hepatic Function Panel [facility] Work Phone: Start: 03-25-2016 End: 04-09-2016 Lipid panel [AGGREGATE] *Lipid Profile CC PCP [facility] Work Phone: Start: 03-18-2016 Hepatitis C antibody, confirmatory test DILATED RETINAL EXAM [facility] Start: 01-08-2016 End: 08-02-2016 Follow Up Appt 3 months Follow Up Appt 3 months [facility] Work Phone: Start: 01-08-2016 End: 08-02-2016 [facility] Work Phone: Start: 11-08-2015 Urine microalbumin profile DTAP,TDAP,TD (2 - Tdap) [facility] Start: 10-23-2015 End: 10-31-2015 Follow Up Appt 6 months Follow Up Appt 6 months [facility] Work Phone: Start: 10-23-2015 End: 10-31-2015 PFM PFM [facility] Work Phone: Start: 10-09-2015 End: 10-31-2015 Follow Up Appt 3 months Follow Up Appt 3 months [facility] Work Phone: Start: 10-09-2015 End: 10-31-2015 Pacer [facility] Pacer [facility] Work Phone: Start: 09-20-2015 End: 09-25-2015 *Hepatic Function Panel *Hepatic Function Panel [facility] Work Phone: Start: 09-20-2015 End: 09-25-2015 Lipid panel [AGGREGATE] *Lipid Profile CC PCP [facility] Work Phone: Start: 07-05-2015 End: 03-05-2016 Follow Up Appt 3 months Follow Up Appt 3 months [facility] Work Phone: Start: 07-05-2015 End: 03-05-[facility] Work Phone: Start: 04-25-2015 End: 04-25-2015 CBC W Auto Differential panel - Blood *CBC without Diff [facility] Work Phone: Start: 04-25-2015 End: 04-25-2015 INR Coag RelTime (PPP) *PT/INR [facility] Work Phone: Start: 04-10-2015 End: 04-10-2015 *CBC with Differential *CBC with Differential [facility] Work Phone: Start: 04-10-2015 End: 04-10-2015 INR Coag RelTime (PPP) *PT/INR [facility] Work Phone: Start: 04-03-2015 End: 03-05-2016 Follow Up Appt 3 months Follow Up Appt 3 months [facility] Work Phone: Start: 04-03-2015 End: 03-05-2016 Pacer Clinic Pacer Clinic [facility] Work Phone: Start: 03-30-2015 End: 04-18-2015 *UA - Urinalysis w/o Micro *UA - Urinalysis w/o Micro [facility] Work Phone: Start: 03-24-2015 End: 03-24-2015 Ecg routine ecg w/least 12 lds w/i&r EKG (In office) [facility] Work Phone: Start: 03-24-2015 End: 03-24-2015 Follow Up Appt 6 months Follow Up Appt 6 months [facility] Work Phone: Start: 03-24-2015 End: 03-24-2015 PFM PFM [facility] Work Phone: Start: 03-13-2015 End: 03-27-2015 *BMP *BMP [facility] Work Phone: Start: 03-13-2015 End: 03-27-2015 *UA - Urinalysis w/o Micro *UA - Urinalysis w/o Micro [facility] Work Phone: Start: 03-13-2015 End: 03-27-2015 CBC W Auto Differential panel - Blood *CBC without Diff [facility] Work Phone: Start: 03-13-2015 End: 04-18-2015 Chest x-ray X-Ray, Chest, PA & Lateral [facility] Work Phone: Start: 03-13-2015 End: 04-18-2015 Ecg routine ecg w/least 12 lds w/i&r EKG (In office) [facility] Work Phone: Start: 03-13-2015 End: 04-07-2015 INR Coag RelTime (PPP) *PT/INR [facility] Work Phone: Start: 03-13-2015 End: 03-30-2015 Pacemaker Generator Change Pacemaker Generator Change [facility] Work Phone: Start: 12-21-2014 End: 12-21-2014 Device Interrogation Device Interrogation [facility] Work Phone: Start: 12-21-2014 End: 04-18-2015 Follow Up Appt 2 months Follow Up Appt 2 months [facility] Work Phone: Start: 12-21-2014 End: 12-21-2014 Follow Up Appt 3 months Follow Up Appt 3 months [facility] Work Phone: Start: 12-21-2014 End: 04-18-2015 Pacer Clinic Pacer Clinic [facility] Work Phone: Start: 12-21-2014 End: 12-21-2014 PFM PFM [facility] Work Phone: Start: 10-17-2014 End: 11-23-2014 *Hepatic Function Panel *Hepatic Function Panel [facility] Work Phone: Start: 10-17-2014 End: 11-23-2014 Lipid panel [AGGREGATE] *Lipid Profile CC PCP [facility] Work Phone: Start: 08-22-2014 End: 12-21-2014 Follow Up Appt 3 months Follow Up Appt 3 months [facility] Work Phone: Start: 08-22-2014 End: 04-18-2015 Pacer Clinic Pac[facility] Work Phone: Start: 05-09-2014 End: 05-09-2014 Device Interrogation Device Inter[facility]ation [facility] Work Phone: Start: 05-09-2014 End: 04-18-2015 Follow Up Appt 3 months Follow Up Appt 3 months [facility] Work Phone: Start: 05-09-2014 End: 05-09-2014 Follow Up Appt 6 months Follow Up Appt 6 months [facility] Work Phone: Start: 05-09-2014 End: 04-18-2015 Pacer Clinic [facility] Work Phone: Start: 05-09-2014 End: 05-09-2014 PFM PFM [facility] Work Phone: Start: 04-12-2014 End: 04-11-2014 *Hepatic Function Panel *Hepatic Function Panel [facility] Work Phone: Start: 04-12-2014 End: 04-11-2014 Lipid panel [AGGREGATE] *Lipid Profile CC PCP [facility] Work Phone: Start: 02-03-2014 End: 05-09-2014 Follow Up Appt 3 months Follow Up Appt 3 months [facility] Work Phone: Start: 02-03-2014 End: 05-09-2014 Pacer [facility] Pacer [facility] Work Phone: Start: 10-29-2013 End: 04-13-2014 Device Interrogation Device Inter[facility] Work Phone: Start: 10-29-2013 End: 04-13-2014 Follow Up Appt 3 months Follow Up Appt 3 months [facility] Work Phone: Start: 10-29-2013 End: 10-29-2013 Follow Up Appt 6 months Follow Up Appt 6 months [facility] Work Phone: Start: 10-29-2013 End: 04-13-2014 Pacer [facility] Pacer [facility] Work Phone: Start: 10-29-2013 End: 10-29-2013 PFM PFM [facility] Work Phone: Start: 08-02-2013 End: 08-04-2013 *Hepatic Function Panel *Hepatic Function Panel [facility] Work Phone: Start: 08-02-2013 End: 08-02-2013 Device Interrogation Device Interrogation [facility] Work Phone: Start: 08-02-2013 End: 08-02-2013 Follow Up Appt 3 months Follow Up Appt 3 months [facility] Work Phone: Start: 08-02-2013 End: 08-04-2013 Lipid panel [AGGREGATE] *Lipid Profile CC PCP [facility] Work Phone: Start: 08-02-2013 End: 08-02-2013 Pacer Clinic Pacer Clinic [facility] Work Phone: Start: 08-02-2013 End: 08-02-2013 PFM PFM [facility] Work Phone: Start: 06-09-2013 End: 08-02-2013 *Hepatic Function Panel *Hepatic Function Panel [facility] Work Phone: Start: 06-09-2013 End: 08-02-2013 Lipid panel [AGGREGATE] *Lipid Profile CC PCP [facility] Work Phone: Start: 04-26-2013 End: 04-28-2013 Ecg routine ecg w/least 12 lds w/i&r EKG (In office) [facility] Work Phone: Start: 04-26-2013 End: 04-28-2013 Echocardiography Echocardiogram (complete) [facility] Work Phone: Start: 04-26-2013 End: 04-28-2013 Follow Up Appt 3 months Follow Up Appt 3 months [facility] Work Phone: Start: 04-26-2013 End: 04-28-2013 PFM PFM [facility] Work Phone: Start: 03-03-2013 End: 04-28-2013 Follow Up Appt 3 months Follow Up Appt 3 months [facility] Work Phone: Start: 03-03-2013 End: 04-28-2013 Pacer Clinic Pacer Clinic [facility] Work Phone: Start: 02-24-2013 End: 02-24-2013 Ecg routine ecg w/least 12 lds w/i&r EKG (In office) [facility] Work Phone: Start: 02-24-2013 End: 02-24-2013 Follow Up Appt Other Follow Up Appt Other [facility] Work Phone: Start: 02-24-2013 End: 02-24-2013 PFM PFM [facility] Work Phone: Start: 02-23-2013 End: 02-24-2013 INR Coag RelTime (PPP) *PT/INR - Standing Order [facility] Work Phone: Start: 12-02-2012 End: 02-24-2013 *BMP *BMP [facility] Work Phone: Start: 12-02-2012 End: 12-03-2012 Cardioversion Cardioversion [facility] Work Phone: Start: 12-02-2012 End: 02-24-2013 Chest x-ray X-Ray, Chest, PA & Lateral [facility] Work Phone: Start: 12-02-2012 End: 12-02-2012 Ecg routine ecg w/least 12 lds w/i&r EKG (In office) [facility] Work Phone: Start: 12-02-2012 End: 02-24-2013 INR Coag RelTime (PPP) *PT/INR [facility] Work Phone: Start: 11-26-2012 End: 11-26-2012 Ecg routine ecg w/least 12 lds w/i&r EKG (In office) [facility] Work Phone: Start: 11-26-2012 End: 12-02-2012 Follow Up Appt 3 months Follow Up Appt 3 months [facility] Work Phone: Start: 11-26-2012 End: 12-02-2012 Follow Up Appt Other Follow Up Appt Other [facility] Work Phone: Start: 11-26-2012 End: 12-02-2012 Pacer Clinic Pacer Clinic [facility] Work Phone: Start: 11-26-2012 End: 11-26-2012 PFM PFM [facility] Work Phone: Start: 08-07-2012 End: 08-07-2012 Device Interrogation Device Inter[facility] Work Phone: Start: 08-07-2012 End: 08-07-2012 Follow Up Appt 3 months Follow Up Appt 3 months [facility] Work Phone: Start: 06-13-2012 [object Object] DIABETIC FOOT EXAM [facility] Start: 05-28-2012 End: 11-26-2012 *BMP *BMP [facility] Work Phone: Start: 05-07-2012 End: 05-14-2012 *BMP *BMP [facility] Work Phone: Start: 05-07-2012 End: 05-07-2012 Device Interrogation Device Inter[facility]ation [facility] Work Phone: Start: 05-07-2012 End: 05-07-2012 Ecg routine ecg w/least 12 lds w/i&r EKG (In office) [facility] Work Phone: Start: 05-07-2012 End: 05-07-2012 Echocardiography Echocardiogram (complete) [facility] Work Phone: Start: 05-07-2012 End: 05-07-2012 Follow Up Appt 3 months Follow Up Appt 3 months [facility] Work Phone: Start: 03-09-2012 End: 03-10-2012 24 hour holter monitor 24 hour holter monitor [facility] Work Phone: Start: 03-09-2012 End: 03-09-2012 Follow Up Appt 3 months Follow Up Appt 3 months [facility] Work Phone: Start: 12-30-2011 End: 05-07-2012 Device Interrogation Device Interrogation [facility] Work Phone: Start: 12-30-2011 End: 12-30-2011 Echocardiography Echocardiogram (limited) [facility] Work Phone: Start: 12-30-2011 End: 12-30-2011 Follow Up Appt 3 months Follow Up Appt 3 months [facility] Work Phone: Start: 10-13-2011 SHINGRIX VACCINE (2 of 3) SHINGRIX VACCINE (2 of 3) [facility] Start: 2005 ADVANCE DIRECTIVE DISCUSSION ADVANCE DIRECTIVE DISCUSSION [facility] Start: 1958 ANNUAL PCP TEAM CHRONIC DISEASE VISIT ANNUAL PCP TEAM CHRONIC DISEASE VISIT [facility] Start: 1958 BP CONTROLLED (<130/80) BP CONTROLLED (<130/80) [facility] inic Patient Education HYPERLIPIDEMIA , HYPERLIPIDEMIA, HYPERTENSION [facility] Work Phone: Immunizations Immunization Date Immunization Notes Care Provider Yrn abdalla 06-23-2008 influenza virus vacc ine, unspecified formulation NA [facility] 07-08-2006 pneumococcal polysac charide vaccine, 23 valent NA [facility] 06-18-2006 influenza virus vacc ine, unspecified formulation NA [facility] 11-07-2005 diphtheria and tetan us toxoids, adsorbed for pediatric use NA [facility] Payers Date Payer Category Payer Medicare HUMANA MEDICARE HU[employer]NA MEDICARE PPO [id number] 2009-2015 PPO [id number] 2005 Medicare MEDICARE MEDICAR E A AND B [id number] 2005-Present [place] Medicare [id number] 1940 Unknown [id number] Medicare [id number] Medicare [id number] Social History Date Type Detail Facility Start: 08-01-2010 Tobacco smoking stat us [facility] Never smoker [facility] Start: 08-01-2010 Alcohol intake Current drinke r of alcohol (finding) [facility] Sex Assigned At Not on file [facility] Summary Purpose Family History No Family History Records FoundNo Family History Records Found Advance Directives No Advanced Directives Records FoundDocuments on File Type Date Recorded 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 Expl anation Advance Directive(s) 11/17/2015 11:18 AM Advance Directive(s) 11/30/2015 9:27 AM History of Past Illness Problem Noted Date Resolved Date DM2 (diabetes mellitus, type 2) 03/07/2014 09/07/2015 Abdominal pain 06/13/2011 03/07/2015 Diabetes mellitus 08/01/2010 03/07/2014 Unspecified sleep apnea 10/07/2008 09/25/19 10 Overview: Sleep 05-26: effic 73%, onset 6 min, WASO 92 min, delayed REM, AHI 1, limited PLM, no arrythmias Findings consistent with sleep fragmentation Screening for unspecified condition 01/04/2008 03/07/2015 Abdominal pain, unspecified site 10/24/2005 01/31/2011 Malignant neoplasm of breast (female), unspecifi ed site 06/27/2005 03/07/2015 Overview: L mastectomy in 1985 L breast implant about 08-22 R breast biopsy in 08-22 Additional Source Comments INFORMATION SOURCE (unrecogn ized section and content) DATE CREATED AUTHOR AUTHOR'S ORGANIZ ATION 04/16/2021 [facility] Source Comments (unrecognize d section and content) In the event this informatio n is protected by the Federal Confidentiality of Alcohol and Drug Abuse Patient Records regulations: The Federal rules restrict any use of the information to criminally investigate or prosecute any alcohol or drug abuse patient.[facility] FOR RECORDS PERTAINING TO PATIENTS WHO ARE OR HAVE BEEN ENROLLED IN A CHEMICAL DEPENDENCY/SUBSTANCEABUSE PROGRAM, SOME INFORMATION MAY BE OMITTED. This clinical summary was aggregated from multiple sources. Caution should be exercised in using it in the provision of clinical care. This summary normalizes information from multiple sources, and as a consequence, information in this document may materially change the coding, format and clinical context of patient data. In addition, data may be omitted in some cases. CLINICAL DECISIONS SHOULD BE BASED ON THE PRIMARY CLINICAL RECORDS. [employer] [facility]. provides no warranty or guarantee of the accuracy or completeness of information in this document.
== END | disposition home or self-care (01) ==
LOC: PSN 12:09
PROVIDERS: PCP Family Medicine Geriatric Medicine; Referring Provider Family Medicine Geriatric Medicine; Visit Provider Family Medicine Geriatric Medicine
DX: R68.83 Chills (without fever) (principal)
CPT/HCPCS: 87634; 87635; 87804

== ENCOUNTER 2023-09-05 08:00 | Outpatient (CLI) | payer MEDICARE, OTHER, SELFPAY ==
[2023-08-01 12:05] LABS: Absolute Lymphocyte Count 0.52 X10^3/uL (0.83-4.51); Absolute Neutrophil Count 4.1 X10^3/uL (2.0-7.7); Basophil# 0.02 X10^3/uL; Basophil% 0.4 % (0-1); Eosinophil# 0.07 X10^3/uL; Eosinophils% 1.3 % (0-5); Hematocrit 37.6 % (37-47); Lymphocyte # 0.52 X10^3/ul (0.83-4.51); Lymphocyte % 9.9 % (19-41); Mean Corp Hgb Conc 31.9 g/dL (32-36); Mean Corpuscular Hgb 31.4 pg (27.0-32.0); Mean Corpuscular Volume 98.4 fL (81-99); Mean Platelet Vol. 10.7 fl (6.2-12.0); Monocyte# 0.52 X10^3/uL; Monocyte% 9.9 % (0-10); NRBC Flagged by Analyzer 0 % (0-5); Neutrophil # 4.08 X10^3/uL (2.7-7.7); Neutrophil % 78.1 % (47-70); POSITIVE DIFFERENTIAL YES; Platelet Count 116 K/mm3 (150-450); RBC Distribution Width CV 13.2 % (11.6-14.6); RBC Distribution Width SD 47.1 fl (35.1-43.9); Red Blood Count 3.82 M/mm3 (4.2-5.4); White Blood Count 5.2 K/mm3 (4.4-11.0)
[2023-08-01 12:16] LABS: Differential Indicated SCAN CRITERIA MET
[2023-08-01 12:29] LABS: BNP,B-Type NATRIURETIC PEPTIDE 703.7 pg/mL (0-100)
[2023-08-01 12:30] LABS: Anion Gap 4 (5-15); BUN 25 mg/dL (7-18); BUN/Creat Ratio 30.4 RATIO (10-20); Calcium,Total 9.6 mg/dL (8.5-10.1); Chloride 101 mmol/L (98-107); Creatinine, Serum 0.82 mg/dL (0.55-1.02); EST Glomerular Filtration Rate 71 mL/min (>60); Est Glom Filt Rate - Afr Amer 85 mL/min (>60); Glucose 133 mg/dL (74-106); Potassium 4.6 mmol/L (3.5-5.1); Sodium Level 136 mmol/L (136-145)
[2023-08-01 12:41] LABS: Differential Comment SCANNED
--- OUTSIDE RECORDS SUMMARY | 2023-10-14 22:44 | XMS RPT_ITS | CCD ---
Author Name Unknown Address [address] [place] [address] Organization [facility] Care Team Providers Care Shuttle Car Operator Name Role Phone Cher Gilliland RN Unavailable Unavailable Jackelyn WEAVER, John Hurtado Unavailable Cher Gilliland RN Unavailable Unavailable Karen Cortez Primary Care Provider [phone] Malinda Larson Primary Care Provider PAUL AUSTIN Admitting Unavailable PAUL AUSTIN Attending Unavailable PAUL AUSTIN Primary Care Unavailable Allergies Allergy Classification Reported Allergen(s) Allergy Type Date of Onset Reaction(s) Facility (4 sources) amiodarone Drug Allergy 1 Tremors [facility] Work Phone: (4 sources) Angiotensin Converting Enzyme (Sha) Inhibitors drug allergy 2 cough [facility] Work Phone: (5 sources) iodine Drug Allergy 5 Anaphylaxis [facility] Work Phone: (1 source) Hmg-Coa Reductase Inhibitors (Statins) Drug Intolerance 1 Other: See Comments [facility] Medications Completed/Discontinued Medications Medication Drug Class(es) [...] 2 weeks, then daily dose AMIODARONE HCL [id number] [place] amoxicillin 500 mg oral tablet (8 sources) Penicillin-class Antibacterial Start: 01-23-2011 End: 10-23-2015 take 4 tablets by mouth every hour AMOXICILLIN 500 MG TABS 4 tablets by mouth 1 hr prior to procedure AMOXICILLIN [id number] John Hayden MD aspirin 81 mg oral tablet (8 sources) Nonsteroidal Anti-inflammatory Drug Start: 01-04-2013 End: 12-04-2015 take 1 tablet by mouth once daily ASPIRIN 81 MG TABS One tablet by mouth daily ASPIRIN [id number] Cher Gilliland RN calcium carbonate 1500 mg [...] (4 sources) Long-term drug therapy; Translations: [Other group home (current) drug therapy] Onset: 01-23-2011 01-23-2011 Unclassified [...] Mass Index) 21.99 kg/m2 John Hayden MD [facility] Work Phone: 06-04-2017 14:51-0400 BP Diastolic 48 mm[Hg] John Hayden MD [facility] Work Phone: 06-04-2017 14:51-0400 BP Systolic 100 mm[Hg] John Hayden MD [facility] Work Phone: 06-04-2017 14:51-0400 Height 158.75 cm John Hayden MD [facility] Work Phone: 06-04-2017 14:51-0400 Pulse (Heart Rate) 70 /min [facility] Work Phone: 06-04-2017 14:51-0400 Respiratory Rate 12 /min John Hayden MD [facility] Work Phone: 06-04-2017 14:51-0400 Weight 55.43 kg [facility] Work Phone: 06-17-2016 15:06-0400 BSA (Body Surface Area) 1.57 m2 John Hayden MD [facility] Work Phone: Encounters Encounter Date Encounter Type Care Provider Facility Start: 04-16-2021 End: 04-16-2021 [facility] Start: 09-13-2010 End: 09-13-2010 Patient encounter procedure A Suresh Rivera Work Phone: [facility] Start: 09-13-2010 Results Only A Suresh sheppard Work Phone: [facility] Procedures Date Procedure Procedure Detail Performing Clinician Start: 06-04-2017 End: 06-17-2017 Echocardiography John Hayden MD Start: 06-04-2017 End: 06-04-2017 Follow Up Appt 6 months John Hayden MD Start: 06-04-2017 End: 06-04-2017 PFM John Hayden MD Start: 04-29-2017 End: 04-30-2017 Interrogation eval remote 90 d 1/2/curriculum specialist ld dfb Adrianne Plummer PA-C Work Phone: Start: 01-16-2017 End: 01-26-2017 Interrogation eval remote 90 d 1/2/curriculum specialist ld dfb Adrianne Plummer PA-C Work Phone: Start: 10-07-2016 End: 10-07-2016 Interrogation eval remote 90 d 1/2/curriculum specialist ld dfb Adrianne Plummer PA-C Work Phone: Start: 07-08-2016 End: 07-10-2016 Interrogation eval remote 90 d 1/2/curriculum specialist ld dfb Adrianne Plummer PA-C Work Phone: Start: 06-17-2016 End: 08-02-2016 Follow Up Appt 6 months John Hayden MD Start: 06-17-2016 End: 08-02-2016 PFMiriam Hayden MD Start: 04-08-2016 End: 08-02-2016 Follow Up Appt 3 months Jhon Hayden MD Start: 04-08-2016 End: 04-09-2016 Interrogation eval remote 90 d 1/2/curriculum specialist ld dfb John Hayden MD Start: 04-08-2016 End: 08-02-2016 Pacer Clinic John Hayden MD Start: 03-25-2016 End: 04-09-2016 *Hepatic Function Panel John Hayden MD Start: 03-25-2016 End: 04-09-2016 Lipid 1996 panel - Serum or Plasma John Hayden MD Start: 01-08-2016 End: 08-02-2016 Follow Up Appt 3 months John Hayden MD Start: 01-08-2016 End: 01-08-2016 Interrogation eval remote 90 d 1/2/curriculum specialist ld dfb John Hayden MD Start: 01-08-2016 End: 08-02-2016 Pacer Clinic John Hayden MD Start: 10-23-2015 End: 10-31-2015 Follow Up Appt 6 months John Hayden MD Start: 10-23-2015 End: 10-31-2015 PFM John Hayden MD Start: 10-09-2015 End: 10-31-2015 Follow Up Appt 3 months John Hayden MD Start: 10-09-2015 End: 10-09-2015 Interrogation eval remote 90 d 1/2/curriculum specialist ld dfb John Hayden MD Start: 10-09-2015 End: 10-31-2015 Pacer Clinic John Hayden MD Start: 09-20-2015 End: 09-25-2015 *Hepatic Function Panel John Hayden MD Start: 09-20-2015 End: 09-25-2015 Lipid 1996 panel - Serum or Plasma John Hayden MD Start: 07-05-2015 End: 03-05-2016 Follow Up Appt 3 months John Hayden MD Start: 07-05-2015 End: 07-05-2015 Interrogation eval remote 90 d 1/2/curriculum specialist ld dfb John Hayden MD Start: 07-05-2015 [...] Author Start: 04-18-2020 Influenza vaccination INFLUENZA (#1) [facility] Start: 02-21-2020 Colonoscopy COLONOSCOPY [facility] Start: 02-04-2018 End: 02-04-2018 Appointment Appointment [facility] Work Phone: Start: 08-04-2017 End: 08-04-2017 Appointment Appointment [facility] Work Phone: Start: 06-30-2017 End: 06-30-2017 Cardiac Referral Cardiac Referral Bubba Valenzuela, [facility] [place], [address] [place] [address], [id number] [facility] Work Phone: Start: 06-04-2017 End: 06-04-2017 Echocardiography Echocardiogram (complete) [facility] Work Phone: Start: 06-04-2017 End: 06-04-2017 Follow Up Appt 6 months Follow Up Appt 6 months [employer] Work Phone: Start: 06-04-2017 End: 06-04-2017 PFM PFM [facility] Work Phone: Start: 04-29-2017 End: 04-30-2017 Follow Up Appt 3 months Follow Up Appt 3 months [employer] Phone: Start: 04-29-2017 End: 04-30-2017 Pacer Clinic [facility] Clinic [facility] Work Phone: Start: 01-16-2017 End: 01-26-2017 Follow Up Appt 3 months Follow Up Appt 3 months [employer] Work Phone: Start: 01-16-2017 End: 01-26-2017 Pacer Clinic [facility]er Clinic [facility] Work Phone: Start: 12-18-2016 End: 12-18-2016 INR Coag RelTime (PPP) *PT/INR - Standing Order [facility] Work Phone: Start: 10-07-2016 End: 04-09-2016 *Hepatic Function Panel *Hepatic Function Panel [employer] Work Phone: Start: 10-07-2016 End: 10-07-2016 Follow Up Appt 3 months Follow Up Appt 3 months [employer] Work Phone: Start: 10-07-2016 End: 04-09-2016 Lipid panel [AGGREGATE] *Lipid Profile CC PCP [facility] Work Phone: Start: 10-07-2016 End: 10-07-2016 [facility] Work Phone: Start: 09-22-2016 Hepatitis B surface antibody level LDL CHOLESTEROL [facility] Start: 09-04-2016 Hepatitis B screening URINE ALBUMIN:CREATININE RATIO [facility] Start: 07-08-2016 End: 07-10-2016 Follow Up Appt 3 months Follow Up Appt 3 months [employer] Work Phone: Start: 07-08-2016 End: 07-10-2016 [facility] Work Phone: Start: 06-17-2016 End: 08-02-2016 Follow Up Appt 6 months Follow Up Appt 6 months [employer] Work Phone: Start: 06-17-2016 End: 08-02-2016 PFM PFM [employer] Work Phone: Start: 06-11-2016 HbA1c (Bld) [Mass fraction] HBA1C [facility] Start: 04-08-2016 End: 08-02-2016 Follow Up Appt 3 months Follow Up Appt 3 months [employer] Work Phone: Start: 04-08-2016 End: 08-02-2016 [facility] Work Phone: Start: 03-25-2016 End: 04-09-2016 *Hepatic Function Panel *Hepatic Function Panel [employer] Work Phone: Start: 03-25-2016 End: 04-09-2016 Lipid panel [AGGREGATE] *Lipid Profile CC PCP [facility] Work Phone: Start: 03-18-2016 Hepatitis C antibody, confirmatory test DILATED RETINAL EXAM [facility] Start: 01-08-2016 End: 08-02-2016 Follow Up Appt 3 months Follow Up Appt 3 months [employer] Work Phone: Start: 01-08-2016 End: 08-02-2016 [facility] Work Phone: Start: 11-08-2015 Urine microalbumin profile DTAP,TDAP,TD (2 - Tdap) [facility] Start: 10-23-2015 End: 10-31-2015 Follow Up Appt 6 months Follow Up Appt 6 months [facility] Work Phone: Start: 10-23-2015 End: 10-31-2015 PFM PFM [facility] Work Phone: Start: 10-09-2015 End: 10-31-2015 Follow Up Appt 3 months Follow Up Appt 3 months [facility] Work Phone: Start: 10-09-2015 End: 10-31-2015 Pacer [facility] Pacer [facility] Work Phone: Start: 09-20-2015 End: 09-25-2015 *Hepatic Function Panel *Hepatic Function Panel [facility] Work Phone: Start: 09-20-2015 End: 09-25-2015 Lipid panel [AGGREGATE] *Lipid Profile CC PCP [facility] Work Phone: Start: 07-05-2015 End: 03-05-2016 Follow Up Appt 3 months Follow Up Appt 3 months [facility] Work Phone: Start: 07-05-2015 End: 03-05-2016 [facility] Work Phone: Start: 04-25-2015 End: 04-25-2015 CBC W Auto Differential panel - Blood *CBC without Diff [facility] Work Phone: Start: 04-25-2015 End: 04-25-2015 INR Coag RelTime (PPP) *PT/INR [facility] Work Phone: Start: 04-10-2015 End: 04-10-2015 *CBC with Differential *CBC with Differential [facility] Work Phone: Start: 04-10-2015 End: 04-10-2015 INR Coag RelTime (PPP) *PT/INR [facility] Work Phone: Start: 04-03-2015 End: 03-05-2016 Follow Up Appt 3 months Follow Up Appt 3 months [facility] Work Phone: Start: 04-03-2015 End: 03-05-2016 Pacer Clinic Pacer Clinic [facility] Work Phone: Start: 03-30-2015 End: 04-18-2015 *UA - Urinalysis w/o Micro *UA - Urinalysis w/o Micro [facility] Work Phone: Start: 03-24-2015 End: 03-24-2015 Ecg routine ecg w/least 12 lds w/i&r EKG (In office) [facility] Work Phone: Start: 03-24-2015 End: 03-24-2015 Follow Up Appt 6 months Follow Up Appt 6 months [facility] Work Phone: Start: 03-24-2015 End: 03-24-2015 PFM PFM [facility] Work Phone: Start: 03-13-2015 End: 03-27-2015 *BMP *BMP [facility] Work Phone: Start: 03-13-2015 End: 03-27-2015 *UA - Urinalysis w/o Micro *UA - Urinalysis w/o Micro [facility] Work Phone: Start: 03-13-2015 End: 03-27-2015 CBC W Auto Differential panel - Blood *CBC without Diff [facility] Work Phone: Start: 03-13-2015 End: 04-18-2015 Chest x-ray X-Ray, Chest, PA & Lateral [facility] Work Phone: Start: 03-13-2015 End: 04-18-2015 Ecg routine ecg w/least 12 lds w/i&r EKG (In office) [facility] Work Phone: Start: 03-13-2015 End: 04-07-2015 INR Coag RelTime (PPP) *PT/INR [facility] Work Phone: Start: 03-13-2015 End: 03-30-2015 Pacemaker Generator Change Pacemaker Generator Change [facility] Work Phone: Start: 12-21-2014 End: 12-21-2014 Device Interrogation Device Interrogation [facility] Work Phone: Start: 12-21-2014 End: 04-18-2015 Follow Up Appt 2 months Follow Up Appt 2 months [facility] Work Phone: Start: 12-21-2014 End: 12-21-2014 Follow Up Appt 3 months Follow Up Appt 3 months [facility] Work Phone: Start: 12-21-2014 End: 04-18-2015 Pacer Clinic Pacer Clinic [facility] Work Phone: Start: 12-21-2014 End: 12-21-2014 PFM PFM [facility] Work Phone: Start: 10-17-2014 End: 11-23-2014 *Hepatic Function Panel *Hepatic Function Panel [facility] Work Phone: Start: 10-17-2014 End: 11-23-2014 Lipid panel [AGGREGATE] *Lipid Profile CC PCP [facility] Work Phone: Start: 08-22-2014 End: 12-21-2014 Follow Up Appt 3 months Follow Up Appt 3 months [facility] Work Phone: Start: 08-22-2014 End: 04-18-2015 Pacer Clinic Pacer Clinic [facility] Work Phone: Start: 05-09-2014 End: 05-09-2014 Device Interrogation Device Interrogation [facility] Work Phone: Start: 05-09-2014 End: 04-18-2015 Follow Up Appt 3 months Follow Up Appt 3 months [facility] Work Phone: Start: 05-09-2014 End: 05-09-2014 Follow Up Appt 6 months Follow Up Appt 6 months [facility] Work Phone: Start: 05-09-2014 End: 04-18-2015 Pacer Clinic Pacer Clinic [facility] Work Phone: Start: 05-09-2014 End: 05-09-2014 PFM PFM [facility] Work Phone: Start: 04-12-2014 End: 04-11-2014 *Hepatic Function Panel *Hepatic Function Panel [facility] Work Phone: Start: 04-12-2014 End: 04-11-2014 Lipid panel [AGGREGATE] *Lipid Profile CC PCP [facility] Work Phone: Start: 02-03-2014 End: 05-09-2014 Follow Up Appt 3 months Follow Up Appt 3 months [facility] Work Phone: Start: 02-03-2014 End: 05-09-2014 Pacer [facility] Pacer [facility] Work Phone: Start: 10-29-2013 End: 04-13-2014 Device Interrogation Device Interrogation [facility] Work Phone: Start: 10-29-2013 End: 04-13-2014 Follow Up Appt 3 months Follow Up Appt 3 months [facility] Work Phone: Start: 10-29-2013 End: 10-29-2013 Follow Up Appt 6 months Follow Up Appt 6 months [facility] Work Phone: Start: 10-29-2013 End: 04-13-2014 Pacer [facility] Pacer [facility] Work Phone: Start: 10-29-2013 End: 10-29-2013 PFM PFM [facility] Work Phone: Start: 08-02-2013 End: 08-04-2013 *Hepatic Function Panel *Hepatic Function Panel [facility] Work Phone: Start: 08-02-2013 End: 08-02-2013 Device Interrogation Device Interrogation [facility] Work Phone: Start: 08-02-2013 End: 08-02-2013 Follow Up Appt 3 months Follow Up Appt 3 months [facility] Work Phone: Start: 08-02-2013 End: 08-04-2013 Lipid panel [AGGREGATE] *Lipid Profile CC PCP [facility] Work Phone: Start: 08-02-2013 End: 08-02-2013 Pacer Clinic Pacer Clinic [facility] Work Phone: Start: 08-02-2013 End: 08-02-2013 PFM PFM [facility] Work Phone: Start: 06-09-2013 End: 08-02-2013 *Hepatic Function Panel *Hepatic Function Panel [facility] Work Phone: Start: 06-09-2013 End: 08-02-2013 Lipid panel [AGGREGATE] *Lipid Profile CC PCP [facility] Work Phone: Start: 04-26-2013 End: 04-28-2013 Ecg routine ecg w/least 12 lds w/i&r EKG (In office) [facility] Work Phone: Start: 04-26-2013 End: 04-28-2013 Echocardiography Echocardiogram (complete) [facility] Work Phone: Start: 04-26-2013 End: 04-28-2013 Follow Up Appt 3 months Follow Up Appt 3 months [facility] Work Phone: Start: 04-26-2013 End: 04-28-2013 PFM PFM [facility] Work Phone: Start: 03-03-2013 End: 04-28-2013 Follow Up Appt 3 months Follow Up Appt 3 months [facility] Work Phone: Start: 03-03-2013 End: 04-28-2013 Pacer Clinic Pacer Clinic [facility] Work Phone: Start: 02-24-2013 End: 02-24-2013 Ecg routine ecg w/least 12 lds w/i&r EKG (In office) [facility] Work Phone: Start: 02-24-2013 End: 02-24-2013 Follow Up Appt Other Follow Up Appt Other [facility] Work Phone: Start: 02-24-2013 End: 02-24-2013 PFM PFM [facility] Work Phone: Start: 02-23-2013 End: 02-24-2013 INR Coag RelTime (PPP) *PT/INR - Standing Order [facility] Work Phone: Start: 12-02-2012 End: 02-24-2013 *BMP *BMP [facility] Work Phone: Start: 12-02-2012 End: 12-03-2012 Cardioversion Cardioversion [facility] Work Phone: Start: 12-02-2012 End: 02-24-2013 Chest x-ray X-Ray, Chest, PA & Lateral [facility] Work Phone: Start: 12-02-2012 End: 12-02-2012 Ecg routine ecg w/least 12 lds w/i&r EKG (In office) [facility] Work Phone: Start: 12-02-2012 End: 02-24-2013 INR Coag RelTime (PPP) *PT/INR [facility] Work Phone: Start: 11-26-2012 End: 11-26-2012 Ecg routine ecg w/least 12 lds w/i&r EKG (In office) [facility] Work Phone: Start: 11-26-2012 End: 12-02-2012 Follow Up Appt 3 months Follow Up Appt 3 months [facility] Work Phone: Start: 11-26-2012 End: 12-02-2012 Follow Up Appt Other Follow Up Appt Other [facility] Work Phone: Start: 11-26-2012 End: 12-02-2012 Pacer Clinic Pacer Clinic [facility] Work Phone: Start: 11-26-2012 End: 11-26-2012 PFM PFM [facility] Work Phone: Start: 08-07-2012 End: 08-07-2012 Device Interrogation Device Interrogation [facility] Work Phone: Start: 08-07-2012 End: 08-07-2012 Follow Up Appt 3 months Follow Up Appt 3 months [facility] Work Phone: Start: 06-13-2012 [object Object] DIABETIC FOOT EXAM [facility] Start: 05-28-2012 End: 11-26-2012 *BMP *BMP [facility] Work Phone: Start: 05-07-2012 End: 05-14-2012 *BMP *BMP [facility] Work Phone: Start: 05-07-2012 End: 05-07-2012 Device Interrogation Device Interrogation [facility] Work Phone: Start: 05-07-2012 End: 05-07-2012 Ecg routine ecg w/least 12 lds w/i&r EKG (In office) [facility] Work Phone: Start: 05-07-2012 End: 05-07-2012 Echocardiography Echocardiogram (complete) [facility] Work Phone: Start: 05-07-2012 End: 05-07-2012 Follow Up Appt 3 months Follow Up Appt 3 months [facility] Work Phone: Start: 03-09-2012 End: 03-10-2012 24 hour holter monitor 24 hour holter monitor [facility] Work Phone: Start: 03-09-2012 End: 03-09-2012 Follow Up Appt 3 months Follow Up Appt 3 months [facility] Work Phone: Start: 12-30-2011 End: 05-07-2012 Device Interrogation Device Interrogation [facility] Work Phone: Start: 12-30-2011 End: 12-30-2011 Echocardiography Echocardiogram (limited) [facility] Work Phone: Start: 12-30-2011 End: 12-30-2011 Follow Up Appt 3 months Follow Up Appt 3 months [facility] Work Phone: Start: 10-13-2011 SHINGRIX VACCINE (2 of 3) SHINGRIX VACCINE (2 of 3) [facility] Start: 2005 ADVANCE DIRECTIVE DISCUSSION ADVANCE DIRECTIVE DISCUSSION [facility] Start: 1958 ANNUAL PCP TEAM CHRONIC DISEASE VISIT ANNUAL PCP TEAM CHRONIC DISEASE VISIT [facility] Start: 1958 BP CONTROLLED (<130/80) BP CONTROLLED (<130/80) [facility] inic Patient Education HYPERLIPIDEMIA , HYPERLIPIDEMIA, HYPERTENSION [facility] Work Phone: Immunizations Immunization Date Immunization Notes Care Provider Yrn abdalla 06-23-2008 influenza virus vacc ine, unspecified formulation NA [facility] 07-08-2006 pneumococcal polysac charide vaccine, 23 valent NA [facility] 06-18-2006 influenza virus vacc ine, unspecified formulation NA [facility] 11-07-2005 diphtheria and tetan us toxoids, adsorbed for pediatric use NA [facility] Payers Date Payer Category Payer Medicare HU[employer]NA MEDICARE HU[employer] MEDICARE PPO [id number] 2009-2015 PPO [id number] 2005 Medicare MEDICARE MEDICAR E A AND B [id number] 2005-Present [place] Medicare [id number] 1940 Unknown [id number] Medicare [id number] Medicare [id number] Social History Date Type Detail Facility Start: 08-01-2010 Tobacco smoking stat us MIIS Never smoker [facility] Start: 08-01-2010 Alcohol intake Current drinke r of alcohol (finding) [facility] Sex Assigned At Not on file [facility] Summary Purpose Family History No Family History Records FoundNo Family History Records Found Advance Directives No Advanced Directives Records FoundDocuments on File Type Date Recorded Patient Tv News Director Expl anation Advance Directive(s) 11/17/2015 11:18 AM [...] DATE CREATED AUTHOR AUTHOR'S ORGANIZ ATION 04/16/2021 [facility] Source Comments (unrecognize d section and content) In the event this informatio n is protected by the Federal Confidentiality of Alcohol and Drug Abuse Patient Records regulations: The Federal rules restrict any use of the information to criminally investigate or prosecute any alcohol or drug abuse patient.[facility] FOR RECORDS PERTAINING TO PATIENTS WHO [...] BE BASED ON THE PRIMARY CLINICAL RECORDS. [facility]. provides no warranty or guarantee of the accuracy or completeness of information in this document.
--- OUTSIDE RECORDS SUMMARY | 2023-10-15 22:52 | XMS RPT_ITS | CCD ---
Author Name Unknown Address [address] [place] [address] Organization [facility] Care Team Providers Care Authors Motivational Name Role Phone Cher Gilliland RN Unavailable [...] Enzyme (Sha) Inhibitors drug allergy 2 cough [facility] Work Phone: (5 sources) iodine Drug Allergy 5 Anaphylaxis [facility] Work Phone: (1 source) Hmg-Coa Reductase Inhibitors (Statins) Drug Intolerance 1 Other: See Comments [facility] Medications Completed/Discontinued Medications Medication Drug Class(es) Dates [...] 2 weeks, then daily dose AMIODARONE HCL [id number] [place] amoxicillin 500 mg oral tablet (8 sources) Penicillin-class Antibacterial Start: 01-23-2011 End: 10-23-2015 take 4 tablets by mouth every hour AMOXICILLIN 500 MG TABS 4 tablets by mouth 1 hr prior to procedure AMOXICILLIN [id number] John Hayden MD aspirin 81 mg oral tablet (8 sources) Nonsteroidal Anti-inflammatory Drug Start: 01-04-2013 End: 12-04-2015 take 1 tablet by mouth once daily ASPIRIN 81 MG TABS One tablet by mouth daily ASPIRIN [id number] Cher Gilliland RN calcium carbonate 1500 mg [...] (4 sources) Long-term drug therapy; Translations: [Other half-way (current) drug therapy] Onset: 01-23-2011 01-23-2011 Unclassified [...] Mass Index) 21.99 kg/m2 John Hayden MD [facility] Work Phone: 06-04-2017 14:51-0400 BP Diastolic 48 mm[Hg] John Hayden MD [facility] Work Phone: 06-04-2017 14:51-0400 BP Systolic 100 mm[Hg] John Hayden MD [facility] Work Phone: 06-04-2017 14:51-0400 Height 158.75 cm John Hayden MD [facility] Work Phone: 06-04-2017 14:51-0400 Pulse (Heart Rate) 70 /min [facility] Work Phone: 06-04-2017 14:51-0400 Respiratory Rate 12 /min John Hayden MD [facility] Work Phone: 06-04-2017 14:51-0400 Weight 55.43 kg [facility] Work Phone: 06-17-2016 15:06-0400 BSA (Body Surface Area) 1.57 m2 John Hayden MD [facility] Work Phone: Encounters Encounter Date Encounter Type Care Provider Facility Start: 04-16-2021 End: 04-16-2021 [facility] Start: 09-13-2010 End: 09-13-2010 Patient encounter procedure A Suresh Rivera Work Phone: [facility] Start: 09-13-2010 Results Only A Suresh sheppard Work Phone: [facility] Procedures Date Procedure Procedure Detail Performing Clinician Start: 06-04-2017 End: 06-17-2017 Echocardiography John Hayden MD Start: 06-04-2017 End: 06-04-2017 Follow Up Appt 6 months John Hayden MD Start: 06-04-2017 End: 06-04-2017 PFM John Hayden MD Start: 04-29-2017 End: 04-30-2017 Interrogation eval remote 90 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/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 operator ld dfb Adrianne Plummer PA-C Work Phone: Start: 01-16-2017 End: 01-26-2017 Interrogation eval remote 90 d 1/2/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 operator ld dfb Adrianne Plummer PA-C Work Phone: Start: 10-07-2016 End: 10-07-2016 Interrogation eval remote 90 d 1/2/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 operator ld dfb Adrianne Plummer PA-C Work Phone: Start: 07-08-2016 End: 07-10-2016 Interrogation eval remote 90 d 1/2/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 operator ld dfb Adrianne Plummer PA-C Work Phone: Start: 06-17-2016 End: 08-02-2016 Follow Up Appt 6 months John Hayden MD Start: 06-17-2016 End: 08-02-2016 PFMiriam Hayden MD Start: 04-08-2016 End: 08-02-2016 Follow Up Appt 3 months John Hayden MD Start: 04-08-2016 End: 04-09-2016 Interrogation eval remote 90 d 1/2/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 operator ld dfb John Hayden MD Start: 04-08-2016 End: 08-02-2016 Pacer Clinic John Hayden MD Start: 03-25-2016 End: 04-09-2016 *Hepatic Function Panel John Hayden MD Start: 03-25-2016 End: 04-09-2016 Lipid 1996 panel - Serum or Plasma John Hayden MD Start: 01-08-2016 End: 08-02-2016 Follow Up Appt 3 months John Hayden MD Start: 01-08-2016 End: 01-08-2016 Interrogation eval remote 90 d 1/2/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 operator ld dfb John Hayden MD Start: 01-08-2016 End: 08-02-2016 Pacer Clinic oJhn Hayden MD Start: 10-23-2015 End: 10-31-2015 Follow Up Appt 6 months John Hayden MD Start: 10-23-2015 End: 10-31-2015 PFM John Hayden MD Start: 10-09-2015 End: 10-31-2015 Follow Up Appt 3 months John Hayden MD Start: 10-09-2015 End: 10-09-2015 Interrogation eval remote 90 d 1/2/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 operator ld dfb John Hayden MD Start: 10-09-2015 End: 10-31-2015 Pacer Clinic John Hayden MD Start: 09-20-2015 End: 09-25-2015 *Hepatic Function Panel John Hayden MD Start: 09-20-2015 End: 09-25-2015 Lipid 1996 panel - Serum or Plasma John Hayden MD Start: 07-05-2015 End: 03-05-2016 Follow Up Appt 3 months John Hayden MD Start: 07-05-2015 End: 07-05-2015 Interrogation eval remote 90 d 1/2/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 operator ld dfb John Hayden MD Start: [...] Hayden MD Start: 04-26-2013 End: 08-02-2013 Echocardiography Jonh Hayden MD Start: 04-26-2013 End: 04-28-2013 Follow [...] Start: 12-30-2011 End: 05-07-2012 Device Interrogation John Hayedn MD Start: 12-30-2011 End: 03-09-2012 Echocardiography John Hayden MD Start: 12-30-2011 End: 12-30-2011 Follow Up Appt 3 months John Hayden MD Start: 09-13-2010 CONVERTED SURGICAL PATHOLOGY A Suresh Rivera Work Phone: Start: 02-20-2010 Colonoscopy DALTON Rivera Plan of Treatment Date Care Activity Detail Author Start: 04-18-2020 Influenza vaccination INFLUENZA (#1) [facility] Start: 02-21-2020 Colonoscopy COLONOSCOPY [facility] Start: 02-04-2018 End: 02-04-2018 Appointment Appointment [facility] Work Phone: Start: 08-04-2017 End: 08-04-2017 Appointment Appointment [facility] Work Phone: Start: 06-30-2017 End: 06-30-2017 Cardiac Referral Cardiac Referral Bubba Valenzuela, [facility] [place], [address] [place] [address], [id number] [employer] [facility] Work Phone: Start: 06-04-2017 End: 06-04-2017 Echocardiography Echocardiogram (complete) [employer] [facility] Work Phone: Start: 06-04-2017 End: 06-04-2017 Follow Up Appt 6 months Follow Up Appt 6 months [employer] Work Phone: Start: 06-04-2017 End: 06-04-2017 PFM PFM [employer] [facility] Work Phone: Start: 04-29-2017 End: 04-30-2017 Follow Up Appt 3 months Follow Up Appt 3 months [employer] Phone: Start: 04-29-2017 End: 04-30-2017 Pacer Clinic Pacer Clinic [employer] [facility] Work Phone: Start: 01-16-2017 End: 01-26-2017 Follow Up Appt 3 months Follow Up Appt 3 months [employer] Work Phone: Start: 01-16-2017 End: 01-26-2017 Pacer Clinic Pacer Clinic [employer] [facility] Work Phone: Start: 12-18-2016 End: 12-18-2016 INR Coag RelTime (PPP) *PT/INR - Standing Order [employer] [facility] [employer] Work Phone: Start: 10-07-2016 End: 04-09-2016 *Hepatic Function Panel *Hepatic Function Panel [employer] Work Phone: Start: 10-07-2016 End: 10-07-2016 Follow Up Appt 3 months Follow Up Appt 3 months [employer] Work Phone: Start: 10-07-2016 End: 04-09-2016 Lipid panel [AGGREGATE] *Lipid Profile CC PCP [employer] [facility] Work Phone: Start: 10-07-2016 End: 10-07-2016 [facility] [employer] [facility] Work Phone: Start: 09-22-2016 Hepatitis B surface antibody level LDL CHOLESTEROL [facility] Start: 09-04-2016 Hepatitis B screening URINE ALBUMIN:CREATININE RATIO [facility] Start: 07-08-2016 End: 07-10-2016 Follow Up Appt 3 months Follow Up Appt 3 months [employer] Work Phone: Start: 07-08-2016 End: 07-10-2016 [facility] [employer] [facility] Work Phone: Start: 06-17-2016 End: 08-02-2016 Follow Up Appt 6 months Follow Up Appt 6 months [employer] Work Phone: Start: 06-17-2016 End: 08-02-[address] [facility] [employer] Work Phone: Start: 06-11-2016 HbA1c (Bld) [Mass fraction] HBA1C [facility] Start: 04-08-2016 End: 08-02-2016 Follow Up Appt 3 months Follow Up Appt 3 months [employer] Work Phone: Start: 04-08-2016 End: 08-02-2016 [facility] [employer] [facility] Work Phone: Start: 03-25-2016 End: 04-09-2016 *Hepatic Function Panel *Hepatic Function Panel [employer] Work Phone: Start: 03-25-2016 End: 04-09-2016 Lipid panel [AGGREGATE] *Lipid Profile CC PCP [employer] [facility] Work Phone: Start: 03-18-2016 Hepatitis C antibody, confirmatory test DILATED RETINAL EXAM [facility] Start: 01-08-2016 End: 08-02-2016 Follow Up Appt 3 months Follow Up Appt 3 months [employer] Work Phone: Start: 01-08-2016 End: 08-02-2016 [facility] [employer] [facility] Work Phone: Start: 11-08-2015 Urine microalbumin profile DTAP,TDAP,TD (2 - Tdap) [facility] Start: 10-23-2015 End: 10-31-2015 Follow Up Appt 6 months Follow Up Appt 6 months [facility] Work Phone: Start: 10-23-2015 End: 10-31-2015 PFM PFM [facility] Work Phone: Start: 10-09-2015 End: 10-31-2015 Follow Up Appt 3 months Follow Up Appt 3 months [facility] Work Phone: Start: 10-09-2015 End: 10-31-[address] [facility] [address] [facility] Work Phone: Start: 09-20-2015 End: 09-25-2015 *Hepatic Function Panel *Hepatic Function Panel [facility] Work Phone: Start: 09-20-2015 End: 09-25-2015 Lipid panel [AGGREGATE] *Lipid Profile CC PCP [facility] Work Phone: Start: 07-05-2015 End: 03-05-2016 Follow Up Appt 3 months Follow Up Appt 3 months [facility] Work Phone: Start: 07-05-2015 End: 03-05-[address] [facility] [address] Work Phone: Start: 04-25-2015 End: 04-25-2015 CBC W Auto Differential panel - Blood *CBC without Diff [facility] Work Phone: Start: 04-25-2015 End: 04-25-2015 INR Coag RelTime (PPP) *PT/INR [facility] Work Phone: Start: 04-10-2015 [...] w/least 12 lds w/i&r EKG (In office) [facility] Work Phone: Start: 03-24-2015 End: 03-24-2015 Follow Up Appt 6 months Follow Up Appt 6 months [facility] Work Phone: Start: 03-24-2015 End: 03-24-2015 PFM PFM [facility] Work Phone: Start: 03-13-2015 End: 03-27-2015 *BMP *BMP [facility] Work Phone: Start: 03-13-2015 End: 03-27-2015 *UA - Urinalysis w/o Micro *UA - Urinalysis w/o Micro [facility] Work Phone: Start: 03-13-2015 End: 03-27-2015 CBC W Auto Differential panel - Blood *CBC without Diff [facility] Work Phone: Start: 03-13-2015 End: 04-18-2015 Chest x-ray X-Ray, Chest, PA & Lateral [facility] Work Phone: Start: 03-13-2015 End: 04-18-2015 Ecg routine ecg w/least 12 lds w/i&r EKG (In office) [facility] Work Phone: Start: 03-13-2015 End: 04-07-2015 INR Coag RelTime (PPP) *PT/INR [facility] Work Phone: Start: 03-13-2015 End: 03-30-2015 Pacemaker Generator Change Pacemaker Generator Change [facility] Work Phone: Start: 12-21-2014 End: 12-21-2014 Device Interrogation Device Interrogation [facility] Work Phone: Start: 12-21-2014 End: 04-18-2015 Follow Up Appt 2 months Follow Up Appt 2 months [facility] Work Phone: Start: 12-21-2014 End: 12-21-2014 Follow Up Appt 3 months Follow Up Appt 3 months [facility] Work Phone: Start: 12-21-2014 End: 04-18-2015 Pacer Clinic Pacer Clinic [facility] Work Phone: Start: 12-21-2014 End: 12-21-2014 PFM PFM [facility] Work Phone: Start: 10-17-2014 End: 11-23-2014 *Hepatic Function Panel *Hepatic Function Panel [facility] Work Phone: Start: 10-17-2014 End: 11-23-2014 Lipid panel [AGGREGATE] *Lipid Profile CC PCP [facility] Work Phone: Start: 08-22-2014 End: 12-21-2014 Follow Up Appt 3 months Follow Up Appt 3 months [facility] Work Phone: Start: 08-22-2014 End: 04-18-2015 Pacer Clinic Pacer Clinic [facility] Work Phone: Start: 05-09-2014 End: 05-09-2014 Device Interrogation Device Interrogation [facility] Work Phone: Start: 05-09-2014 End: 04-18-2015 Follow Up Appt 3 months Follow Up Appt 3 months [facility] Work Phone: Start: 05-09-2014 End: 05-09-2014 Follow Up Appt 6 months Follow Up Appt 6 months [facility] Work Phone: Start: 05-09-2014 End: 04-18-2015 Pacer Clinic Pacer Clinic [facility] Work Phone: Start: 05-09-2014 End: 05-09-2014 PFM PFM [facility] Work Phone: Start: 04-12-2014 End: 04-11-2014 *Hepatic Function Panel *Hepatic Function Panel [facility] Work Phone: Start: 04-12-2014 End: 04-11-2014 Lipid panel [AGGREGATE] *Lipid Profile CC PCP [facility] Work Phone: Start: 02-03-2014 End: 05-09-2014 Follow Up Appt 3 months Follow Up Appt 3 months [facility] Work Phone: Start: 02-03-2014 End: 05-09-[address] [facility] [address] [facility] Work Phone: Start: 10-29-2013 End: 04-13-2014 Device Interrogation Device Interrogation [facility] Work Phone: Start: 10-29-2013 End: 04-13-2014 Follow Up Appt 3 months Follow Up Appt 3 months [facility] Work Phone: Start: 10-29-2013 End: 10-29-2013 Follow Up Appt 6 months Follow Up Appt 6 months [facility] Work Phone: Start: 10-29-2013 End: 04-13-[address] [facility] [address] [facility] Work Phone: Start: 10-29-2013 End: 10-29-2013 PFM PFM [facility] Work Phone: Start: 08-02-2013 End: 08-04-2013 *Hepatic Function Panel *Hepatic Function Panel [facility] Work Phone: Start: 08-02-2013 End: 08-02-2013 Device Interrogation Device Interrogation [facility] Work Phone: Start: 08-02-2013 End: 08-02-2013 Follow Up Appt 3 months Follow Up Appt 3 months [facility] Work Phone: Start: 08-02-2013 End: 08-04-2013 Lipid panel [AGGREGATE] *Lipid Profile CC PCP [facility] Work Phone: Start: 08-02-2013 End: 08-02-2013 Pacer Clinic Pacer Clinic [facility] Work Phone: Start: 08-02-2013 End: 08-02-2013 PFM PFM [facility] Work Phone: Start: 06-09-2013 End: 08-02-2013 *Hepatic Function Panel *Hepatic Function Panel [facility] Work Phone: Start: 06-09-2013 End: 08-02-2013 Lipid panel [AGGREGATE] *Lipid Profile CC PCP [facility] Work Phone: Start: 04-26-2013 End: 04-28-2013 Ecg routine ecg w/least 12 lds w/i&r EKG (In office) [facility] Work Phone: Start: 04-26-2013 End: 04-28-2013 Echocardiography Echocardiogram (complete) [facility] Work Phone: Start: 04-26-2013 End: 04-28-2013 Follow Up Appt 3 months Follow Up Appt 3 months [facility] Work Phone: Start: 04-26-2013 End: 04-28-2013 PFM PFM [facility] Work Phone: Start: 03-03-2013 End: 04-28-2013 Follow Up Appt 3 months Follow Up Appt 3 months [facility] Work Phone: Start: 03-03-2013 End: 04-28-2013 Pacer Clinic Pacer Clinic [facility] Work Phone: Start: 02-24-2013 End: 02-24-2013 Ecg routine ecg w/least 12 lds w/i&r EKG (In office) [facility] Work Phone: Start: 02-24-2013 End: 02-24-2013 Follow Up Appt Other Follow Up Appt Other [facility] Work Phone: Start: 02-24-2013 End: 02-24-2013 PFM PFM [facility] Work Phone: Start: 02-23-2013 End: 02-24-2013 INR Coag RelTime (PPP) *PT/INR - Standing Order [facility] Work Phone: Start: 12-02-2012 End: 02-24-2013 *BMP *BMP [facility] Work Phone: Start: 12-02-2012 End: 12-03-2012 Cardioversion Cardioversion [facility] Work Phone: Start: 12-02-2012 End: 02-24-2013 Chest x-ray X-Ray, Chest, PA & Lateral [facility] Work Phone: Start: 12-02-2012 End: 12-02-2012 Ecg routine ecg w/least 12 lds w/i&r EKG (In office) [facility] Work Phone: Start: 12-02-2012 End: 02-24-2013 INR Coag RelTime (PPP) *PT/INR [facility] Work Phone: Start: 11-26-2012 End: 11-26-2012 Ecg routine ecg w/least 12 lds w/i&r EKG (In office) [facility] Work Phone: Start: 11-26-2012 End: 12-02-2012 Follow Up Appt 3 months Follow Up Appt 3 months [facility] Work Phone: Start: 11-26-2012 End: 12-02-2012 Follow Up Appt Other Follow Up Appt Other [facility] Work Phone: Start: 11-26-2012 End: 12-02-2012 Pacer Clinic Pacer Clinic [facility] Work Phone: Start: 11-26-2012 End: 11-26-2012 PFM PFM [facility] Work Phone: Start: 08-07-2012 End: 08-07-2012 Device Interrogation Device Interrogation [facility] Work Phone: Start: 08-07-2012 End: 08-07-2012 Follow Up Appt 3 months Follow Up Appt 3 months [facility] Work Phone: Start: 06-13-2012 [object Object] DIABETIC FOOT EXAM [facility] Start: 05-28-2012 End: 11-26-2012 *BMP *BMP [facility] Work Phone: Start: 05-07-2012 End: 05-14-2012 *BMP *BMP [facility] Work Phone: Start: 05-07-2012 End: 05-07-2012 Device Interrogation Device Interrogation [facility] Work Phone: Start: 05-07-2012 End: 05-07-2012 Ecg routine ecg w/least 12 lds w/i&r EKG (In office) [facility] Work Phone: Start: 05-07-2012 End: 05-07-2012 Echocardiography Echocardiogram (complete) [facility] Work Phone: Start: 05-07-2012 End: 05-07-2012 Follow Up Appt 3 months Follow Up Appt 3 months [facility] Work Phone: Start: 03-09-2012 End: 03-10-2012 24 hour holter monitor 24 hour holter monitor [facility] Work Phone: Start: 03-09-2012 End: 03-09-2012 Follow Up Appt 3 months Follow Up Appt 3 months [facility] Work Phone: Start: 12-30-2011 End: 05-07-2012 Device Interrogation Device Interrogation [facility] Work Phone: Start: 12-30-2011 End: 12-30-2011 Echocardiography Echocardiogram (limited) [facility] Work Phone: Start: 12-30-2011 End: 12-30-2011 Follow Up Appt 3 months Follow Up Appt 3 months [facility] Work Phone: Start: 10-13-2011 SHINGRIX VACCINE (2 of 3) SHINGRIX VACCINE (2 of 3) [facility] Start: 2005 ADVANCE DIRECTIVE DISCUSSION ADVANCE DIRECTIVE DISCUSSION [facility] Start: 1958 ANNUAL PCP TEAM CHRONIC DISEASE VISIT ANNUAL PCP TEAM CHRONIC DISEASE VISIT [facility] Start: 1958 BP CONTROLLED (<130/80) BP CONTROLLED (<130/80) [facility] inic Patient Education HYPERLIPIDEMIA , HYPERLIPIDEMIA, HYPERTENSION [facility] Work Phone: Immunizations Immunization Date Immunization Notes Care Provider Yrn abdalla 06-23-2008 influenza virus vacc ine, unspecified formulation NA [facility] 07-08-2006 pneumococcal polysac charide vaccine, 23 valent NA [facility] 06-18-2006 influenza virus vacc ine, unspecified formulation NA [facility] 11-07-2005 diphtheria and tetan us toxoids, adsorbed for pediatric use NA [facility] Payers Date Payer Category Payer Medicare HUMANA MEDICARE HUMANA MEDICARE PPO [id number] 2009-2015 PPO [id number] 2005 Medicare MEDICARE MEDICAR E A AND B [id number] 2005-Present [place] Medicare [id number] 1940 Unknown [id number] Medicare [id number] Medicare [id number] Social History Date Type Detail Facility Start: 08-01-2010 Tobacco smoking stat us [place] Never smoker [facility] Start: 08-01-2010 Alcohol intake Current drinke r of alcohol (finding) [facility] Sex Assigned At Not on file [facility] Summary Purpose Family History No Family History Records FoundNo Family History Records Found Advance Directives No Advanced Directives Records FoundDocuments on File Type Date Recorded 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 [facility] provides no warranty or guarantee of the accuracy or completeness of information in this document.
== END 2023-09-05 09:00 | disposition home or self-care (01) ==
LOC: PAT 10-15 13:33
PROVIDERS: Nurse Practitioner Gerontology; PCP Family Medicine Geriatric Medicine; Referring Provider Plastic Surgery; Visit Provider Plastic Surgery
DX: R06.00 Dyspnea, unspecified (principal)
CPT/HCPCS: 80048; 83880; 85025

== ENCOUNTER 2023-09-15 12:05 | Observation (INO) | payer MEDICARE, OTHER, SELFPAY ==
[2023-09-15] VITALS (12 sets, daily range): BP systolic 109–145; BP diastolic 50–86; PULSE 70–85; RESP 14–22; TEMP 36.8–37; O2SAT 94–97; BMI 20.7
[2023-09-15 12:51] LABS: Absolute Lymphocyte Count 0.42 X10^3/uL (0.83-4.51); Absolute Neutrophil Count 5.6 X10^3/uL (2.0-7.7); Basophil# 0.01 X10^3/uL; Basophil% 0.2 % (0-1); Eosinophil# 0.05 X10^3/uL; Eosinophils% 0.8 % (0-5); Hematocrit 33.4 % (37-47); Hemoglobin 11.3 g/dL (12.0-15.0); Lymphocyte # 0.42 X10^3/ul (0.83-4.51); Lymphocyte % 6.3 % (19-41); Mean Corp Hgb Conc 33.8 g/dL (32-36); Mean Corpuscular Hgb 31.5 pg (27.0-32.0); Mean Platelet Vol. 10.5 fl (6.2-12.0); Monocyte# 0.53 X10^3/uL; NRBC Flagged by Analyzer 0 % (0-5); Neutrophil # 5.61 X10^3/uL (2.7-7.7); Neutrophil % 84.1 % (47-70); POSITIVE DIFFERENTIAL YES; Platelet Count 136 K/mm3 (150-450); RBC Distribution Width CV 13.2 % (11.6-14.6); RBC Distribution Width SD 45.2 fl (35.1-43.9); Red Blood Count 3.59 M/mm3 (4.2-5.4); White Blood Count 6.7 K/mm3 (4.4-11.0)
--- NOTE | 2023-09-15 13:02 | RAD_ITS ---
STUDY: X-RAY CHEST REASON FOR EXAM: Female, 82 years old. Cough. TECHNIQUE: Single frontal view of the chest. COMPARISON: 02/14/2023 FINDINGS: Stable mild hyperinflation. Patchy linear opacities at the left base compatible with scarring/atelectasis. There is no demonstrated pleural abnormality. Stable cardiomegaly, sternotomy wires and single lead cardiac pacer. Normal mediastinum and irene. Normal visualized pulmonary arteries. Aortic tortuosity is calcification unchanged. No abnormality of the visualized soft tissue structures of the upper abdomen. RAD/Chest 1 View (Portable) IMPRESSION: Stable chest with no acute or active cardiopulmonary disease. Electronically Signed: Franck Gupta MD at 13:29 EST ,
[2023-09-15 13:04] LABS: Anion Gap 6 (5-15); BUN 21 mg/dL (7-18); Calcium,Total 8.7 mg/dL (8.5-10.1); Chloride 94 mmol/L (98-107); Creatinine, Serum 0.91 mg/dL (0.55-1.02); EST Glomerular Filtration Rate 63 mL/min (>60); Est Glom Filt Rate - Afr Amer 76 mL/min (>60); Glucose 180 mg/dL (74-106); Potassium 4.4 mmol/L (3.5-5.1); Sodium Level 126 mmol/L (136-145)
--- NOTE | 2023-09-15 13:04 | ED.VIS.DYS ---
HPI History of Present Illness Chief Complaint: Shortness of Breath Informant: patient Onset/Context/Timing Onset: Weeks (1) Context: gradual Timing: Continuous Quality: Positive for Dyspnea on exertion Worsened by: Exertion Relieved by: - (Mucinex DM) Associated Symptoms cough, rhinorrhea and white sputum; Negative for ear pain, fever, sore throat, chills, clear sputum, yellow sputum or green sputum Chest Pain: Positive for None Narrative Narrative: Patient presents with shortness of breath that has been getting worse over the past week. Patient states her breathing is worse with any exertion. Patient states he gets better after taking some Mucinex DM [id number]. Patient states she was having a cough with some white sputum earlier this week. Patient states this has improved. Patient admits to some rhinorrhea. Patient denies any fevers or chills. Patient denies any chest pain. Patient states she fell last night and injured her left knee. Patient states she was feeling weak last night. Patient also states she has been exposed to RSV. PE Risk Factors: Positive for Cancer; Negative for OCP + Smoking + > 35, Prior DVT or PE, Recent immobilization, Recent surgery or Recent travel [facility] Medical History Anxiety Anxiety states Arthritis Atrial dysrhythmia Bladder disease Cancer Cardiac pacemaker Cardiology follow-up encounter Chronic systolic congestive heart failure Dilated cardiomyopathy Essential hypertension Fibromyalgia Gastric reflux High cholesterol History of breast cancer History of CHF (congestive heart failure) History of echocardiogram History of esophageal reflux History of irregular heartbeat History of mitral valve disorder History of pain when walking History of stress test HLD (hyperlipidemia) Hypertension Leg cramps senior living current use of anticoagulant Loss of hearing Melanoma Non-smoker 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 tachycardia Paroxysmal atrial fibrillation Paroxysmal atrial flutter Shortness of breath on exertion Thyroid disease Ventricular tachycardia Walker as ambulation aid Wears glasses Home Medications multivitamin 1 ea PO DAILY supplement 08/01/17 [History Last Taken 09/14/23] cholecalciferol (vitamin D3) 50 mcg (2,000 unit) capsule 50 mcg PO DAILY 01/24/21 [History Last Taken 09/14/23] thyroid (pork) 30 mg tablet 30 mg PO DAILY 01/29/21 [History Last Taken 09/14/23] sacubitril 97 mg-valsartan 103 mg tablet (Entresto) 1 tab PO BID 05/07/21 [History Last Taken 09/15/23] carvedilol 25 mg tablet (Coreg) 25 mg PO BID #180 tabs 10/22/22 [Rx Last Taken 09/14/23] warfarin 5 mg tablet 5 mg PO .COMPLEX #135 tabs 11/21/22 [Rx Last Taken 09/14/23] acetaminophen 650 mg tablet,extended release 650 mg PO DAILY PRN pain/fever 04/28/23 [History Last Taken 09/14/23] furosemide 40 mg tablet 40 mg PO DAILY 08/01/23 [History Last Taken 09/14/23] pravastatin 20 mg tablet 20 mg PO QHS cholesterol #90 tabs 08/26/23 [Rx Last Taken 09/14/23] primidone 50 mg tablet 50 mg PO BID #60 tabs 09/04/23 [Rx Last Taken 09/14/23] albuterol sulfate 90 mcg/actuation aerosol inhaler 2 puff inhalation Q4H PRN shortness of breath or wheezing 09/15/23 [History Last Taken 09/13/23] tramadol 50 mg tablet 50 mg PO Q12H 09/15/23 [History Last Taken 09/14/23] Allergy/AdvReac Type Severity Reaction Status Date / Time HERMILO Inhibitors Allergy Unknown Verified 09/15/23 12:11 amiodarone Allergy Unknown Verified 09/15/23 12:11 Iodinated Contrast Media [CT] Allergy Nausea/Vom/ Verified 09/15/23 12:11 Diarrhea levothyroxine AdvReac Unknown Nausea Verified 09/15/23 12:11 levothyroxine sodium AdvReac Unknown Nausea Verified 09/15/23 12:11 [From Unithroid] Family History Father Hypertension Cancer Mother Cancer Hypertension Surgical History History of breast implant History of cardiac catheterization History of knee surgery History of local excision of skin lesion History of mastectomy History of mitral valve replacement (~06/1997) History of radiofrequency ablation procedure for cardiac arrhythmia History of tonsillectomy and adenoidectomy Hx of mitral valve repair Presence of implantable cardioverter-defibrillator (ICD) Social History Smoking Status: Never smoker alcohol intake: never caffeine: No additional social history: pt on coumadin pt does not take aspirin, does not take ibuprofen, denies vaping or edibles. ROS ROS ED Constitutional Constitutional ED: Denies chills or fever(s) Eyes Eyes: Denies blurry vision or change in vision ENT ENT ED: Denies rhinorrhea or sore throat Cardiovascular Cardiovascular: Denies chest pain or palpitations Respiratory/Chest Respiratory/Chest: Reports cough and dyspnea Gastrointestinal Gastrointestinal: Denies nausea or vomiting Genitourinary Genitourinary ED: Denies dysuria or hematuria Musculoskeletal Musculoskeletal: Reports back pain; Denies neck pain Integumentary Denies abscess or rash Neurologic Neurologic: Denies headache(s) or weakness Allergic/Immunologic Allergic/Immunologic ED: Denies mouth swelling or urticaria EXAM Physical Exam Const Vital Signs: 09/15/23 12:09 09/15/23 13:05 09/15/23 13:05 Temperature 98.5 F Temperature Source Temporal Pulse Rate 73 70 Respiratory Rate 14 18 Respiratory Effort Blood Pressure 145/86 H 132/54 H Blood Pressure Mean 105 80 Pulse Ox 94 96 96 Oxygen Delivery Method Room Air Room Air Room Air 09/15/23 13:44 09/15/23 14:00 09/15/23 15:00 Temperature Temperature Source Pulse Rate 70 85 Respiratory Rate Respiratory Effort Short of Breath Blood Pressure 139/54 H 123/67 H Blood Pressure Mean 82 85 Pulse Ox 95 96 Oxygen Delivery Method Room Air Room Air Room Air Positive well nourished and well developed General Appearance ED: well developed and NAD HEENT Reports moist mucous membranes Neck supple and no JVD Resp normal respiratory effort and clear to auscultation bilaterally Cardio regular rate Rhythm: abnormal rhythm irregularly irregular GI non-tender and non-distended Neuro oriented x3, CN's II-XII intact bilaterally and no sensory deficits noted Rodney Coma Scale: document GCS findings Spontaneous Obeys Commands Oriented 15 Sensorium / Orientation: alert Speech: speech normal Motor Exam: strength 5/5 throughout Psych mental status grossly normal MDM MDM MDM Narrative Medical decision making narrative: Differential diagnosis includes pneumonia, pneumothorax, congestive heart failure, cardiac dysrhythmia, cardiac ischemia, pulmonary embolism, and viral infection. EKG will be obtained to assess for cardiac dysrhythmia and cardiac ischemia. Chest x-ray will be obtained to assess for pneumonia and pneumothorax. CBC will be obtained to assess for leukocytosis and anemia. Basic metabolic profile will be obtained to assess for electrolyte abnormality and renal function. COVID-19, influenza, and RSV PCR will be obtained to assess for viral infection. PT with INR and PTT will be obtained to assess for coagulopathy. High-sensitivity troponin will be obtained to assess for cardiac ischemia. D-dimer will be obtained to assess for pulmonary embolism. Lab Data Attestation: I reviewed the patient's lab results. Lab results narrative: CBC was reviewed. There is a mild anemia with a hemoglobin of 11.3 hematocrit 33.4. Basic metabolic profile was reviewed. Sodium was slightly low at 126 and chloride was 94. PT with INR and PTT were reviewed. Pro time was 27.0. INR is 2.5. PTT was slightly elevated at 42.8. D-dimer was reviewed and was less than 0.27. High-sensitivity troponin was reviewed and was normal at 22. RSV PCR was reviewed and was positive. COVID-19 PCR was reviewed and was negative. Influenza PCR was reviewed and was negative for influenza A and influenza B. Labs: Laboratory Results - last 24 hr 09/15/23 09/15/23 09/15/23 12:35 12:40 13:53 WBC 6.7 RBC 3.59 L Hgb 11.3 L Hct 33.4 L MCV 93.0 MCH 31.5 MCHC 33.8 RDW Std Deviation 45.2 H RDW Coeff of Ana Maria 13.2 Plt Count 136 L MPV 10.5 Immature Gran % (Auto) 0.600 Neut % (Auto) 84.1 H Lymph % (Auto) 6.3 L [place] % (Auto) 8.0 Eos % (Auto) 0.8 Baso % (Auto) 0.2 Absolute Neuts (auto) 5.6 Absolute Lymphs (auto) 0.42 L Nucleated RBC % 0 PT 27.0 H INR 2.5 APTT 42.8 H D-Dimer Quant (PE/DVT) < 0.27 L Sodium 126 L Potassium 4.4 Chloride 94 L Carbon Dioxide 26.0 Anion Gap 6 BUN 21 H Creatinine 0.91 Est GFR (MDRD) Af Amer 76 Est GFR (MDRD) Non-Af 63 BUN/Creatinine Ratio 23.0 H Glucose 180 H Calcium 8.7 Troponin I High Sens 22 Radiography Chest X-Ray - ED: 1 View, Read by ED Physician, Read by Radiologist and No Acute Disease Diagnostic Testing: Clinical Impression(s) from Imaging Studies Chest X-Ray 09/15/23 13:02 IMPRESSION: Stable chest with no acute or active cardiopulmonary disease. Electronically Signed: Franck Gupta MD at 13:29 EST , Portable 1 view chest x-ray was obtained. On my independent interpretation, lung cisneros are clear. There is normal cardiac silhouette. Bony thorax is normal. There is no acute process noted. Radiologist also interpreted the x-ray and agrees. EKG Initial EKG: Attestation: I personally reviewed and interpreted this EKG as follows: Interpretation: Atrial Fibrillation and Non-Specific ST Changes Comments: EKG was obtained. On my independent interpretation, shows atrial fibrillation with a rate of 74. QRS interval was normal at 102 ms. QTc interval was normal at 448 ms. There is left axis deviation at -60. There are nonspecific ST-T wave changes noted and V3 through V6 as well as II, III, and aVF. Previous EKG was noted paced rhythm as well as a left bundle branch block pattern noted. Prior EKG tracings: available for review Prior: Changed (Previous EKGs noted a paced rhythm with a left bundle branch block pattern.) Treatment and Re-Evaluation :: Patient was advised of her findings. Patient was ambulated here in the emergency department. Patient states she became very weak while ambulating. Patient states she did feel short of breath. Patient's pulse oximeter dropped to 90% while ambulating. Because of this, I will discuss the case with the hospitalist. Case was discussed with the hospitalist. She will admit the patient for observation. Patient understood and is agreeable with the plan. All questions were answered. Discharge Plan Dx/Rx/DC Orders Clinical Impression: Respiratory syncytial virus (RSV), Weakness Disposition Disposition: [facility]
--- OUTSIDE RECORDS SUMMARY | 2023-09-15 13:49 | XMS RPT_ITS | CCD ---
Author Name Unknown Address [address] [place] [address] Organization [facility] Care Team Providers Care Traffic Supervisor Name Role Phone Cher Gilliland RN Unavailable Unavailable Jackelyn WEAVER, John Hurtado Unavailable Cher Gilliland RN Unavailable Unavailable Karen Cortez Primary Care Provider Malinda Larson Primary Care Provider [phone] PAUL AUSTIN Admitting Unavailable PAUL AUSTIN Attending Unavailable PAUL AUSTIN Primary Care Unavailable Allergies Allergy Classification Reported Allergen(s) Allergy Type Date of Onset Reaction(s) Facility (4 sources) amiodarone Drug Allergy 1 Tremors [facility] Work Phone: (4 sources) Angiotensin Converting Enzyme (Sha) Inhibitors drug allergy 2 cough [facility] Work Phone: (5 sources) iodine Drug Allergy 5 Anaphylaxis [facility] Work Phone: (1 source) Hmg-Coa Reductase Inhibitors (Statins) Drug Intolerance 1 Other: See Comments [facility] Medications Completed/Discontinued Medications Medication Drug Class(es) Dates [...] 2 weeks, then daily dose AMIODARONE HCL [id number] [place] amoxicillin 500 mg oral tablet (8 sources) Penicillin-class Antibacterial Start: 01-23-2011 End: 10-23-2015 take 4 tablets by mouth every hour AMOXICILLIN 500 MG TABS 4 tablets by mouth 1 hr prior to procedure AMOXICILLIN [id number] John Hayden MD aspirin 81 mg oral tablet (8 sources) Nonsteroidal Anti-inflammatory Drug Start: 01-04-2013 End: 12-04-2015 take 1 tablet by mouth once daily ASPIRIN 81 MG TABS One tablet by mouth daily ASPIRIN [id number] Cher Gilliland RN calcium carbonate 1500 mg [...] (4 sources) Long-term drug therapy; Translations: [Other fpc (current) drug therapy] Onset: 01-23-2011 01-23-2011 Unclassified [...] Mass Index) 21.99 kg/m2 John Hayden MD [facility] Work Phone: 06-04-2017 14:51-0400 BP Diastolic 48 mm[Hg] John Hayden MD [facility] Work Phone: 06-04-2017 14:51-0400 BP Systolic 100 mm[Hg] John Hayden MD [facility] Work Phone: 06-04-2017 14:51-0400 Height 158.75 cm John Hayden MD [facility] Work Phone: 06-04-2017 14:51-0400 Pulse (Heart Rate) 70 /min [facility] Work Phone: 06-04-2017 14:51-0400 Respiratory Rate 12 /min John Hayden MD [facility] Work Phone: 06-04-2017 14:51-0400 Weight 55.43 kg [facility] Work Phone: 06-17-2016 15:06-0400 BSA (Body Surface Area) 1.57 m2 John Hayden MD [facility] Work Phone: Encounters Encounter Date Encounter Type Care Provider Facility Start: 04-16-2021 End: 04-16-2021 [facility] Start: 09-13-2010 End: 09-13-2010 Patient encounter procedure A Suresh Rivera Work Phone: [facility] Start: 09-13-2010 Results Only A Suresh sheppard Work Phone: [facility] Procedures Date Procedure Procedure Detail Performing Clinician Start: 06-04-2017 End: 06-17-2017 Echocardiography John Hayden MD Start: 06-04-2017 End: 06-04-2017 Follow Up Appt 6 months John Hayden MD Start: 06-04-2017 End: 06-04-2017 PFM John Hayden MD Start: 04-29-2017 End: 04-30-2017 Interrogation eval remote 90 d 1/2/reading tutor ld dfb Adrianne Plummer PA-C Work Phone: Start: 01-16-2017 End: 01-26-2017 Interrogation eval remote 90 d 1/2/reading tutor ld dfb Adrianne Plummer PA-C Work Phone: Start: 10-07-2016 End: 10-07-2016 Interrogation eval remote 90 d 1/2/reading tutor ld dfb Adrianne Plummer PA-C Work Phone: Start: 07-08-2016 End: 07-10-2016 Interrogation eval remote 90 d 1/2/reading tutor ld dfb Adrianne Plummer PA-C Work Phone: Start: 06-17-2016 End: 08-02-2016 Follow Up Appt 6 months Jonh Hayden MD Start: 06-17-2016 End: 08-02-2016 PFMiriam Hayden MD Start: 04-08-2016 End: 08-02-2016 Follow Up Appt 3 months John Hayden MD Start: 04-08-2016 End: 04-09-2016 Interrogation eval remote 90 d 1/2/reading tutor ld dfb John Hayden MD Start: 04-08-2016 End: 08-02-2016 Pacer Clinic John Hayden MD Start: 03-25-2016 End: 04-09-2016 *Hepatic Function Panel John Hayden MD Start: 03-25-2016 End: 04-09-2016 Lipid 1996 panel - Serum or Plasma John Hayden MD Start: 01-08-2016 End: 08-02-2016 Follow Up Appt 3 months John Hayden MD Start: 01-08-2016 End: 01-08-2016 Interrogation eval remote 90 d 1/2/reading tutor ld dfb John Hayden MD Start: 01-08-2016 End: 08-02-2016 Pacer Clinic John Hayden MD Start: 10-23-2015 End: 10-31-2015 Follow Up Appt 6 months John Hayden MD Start: 10-23-2015 End: 10-31-2015 PFM John Hayden MD Start: 10-09-2015 End: 10-31-2015 Follow Up Appt 3 months John Hayden MD Start: 10-09-2015 End: 10-09-2015 Interrogation eval remote 90 d 1/2/reading tutor ld dfb John Hayden MD Start: 10-09-2015 End: 10-31-2015 Pacer Clinic John Hayden MD Start: 09-20-2015 End: 09-25-2015 *Hepatic Function Panel John Hayden MD Start: 09-20-2015 End: 09-25-2015 Lipid 1996 panel - Serum or Plasma John Hayden MD Start: 07-05-2015 End: 03-05-2016 Follow Up Appt 3 months John Hayden MD Start: 07-05-2015 End: 07-05-2015 Interrogation eval remote 90 d 1/2/reading tutor ld dfb John Hayden MD Start: 07-05-2015 [...] Author Start: 04-18-2020 Influenza vaccination INFLUENZA (#1) [facility] Start: 02-21-2020 Colonoscopy COLONOSCOPY [facility] Start: 02-04-2018 End: 02-04-2018 Appointment Appointment [facility] Work Phone: Start: 08-04-2017 End: 08-04-2017 Appointment Appointment [facility] Work Phone: Start: 06-30-2017 End: 06-30-2017 Cardiac Referral Cardiac Referral Bubba Valenzuela, [facility] [place], [address] [place] [address], [id number] [facility] Work Phone: Start: 06-04-2017 End: 06-04-2017 Echocardiography Echocardiogram (complete) [facility] Work Phone: Start: 06-04-2017 End: 06-04-2017 Follow Up Appt 6 months Follow Up Appt 6 months [facility] Work Phone: Start: 06-04-2017 End: 06-04-2017 PFM PFM [facility] Work Phone: Start: 04-29-2017 End: 04-30-2017 Follow Up Appt 3 months Follow Up Appt 3 months [employer] Phone: Start: 04-29-2017 End: 04-30-2017 Pacer Clinic Pacer Clinic [facility] Work Phone: Start: 01-16-2017 End: 01-26-2017 Follow Up Appt 3 months Follow Up Appt 3 months [facility] Work Phone: Start: 01-16-2017 End: 01-26-2017 Pacer Clinic Pacer Clinic [facility] Work Phone: Start: 12-18-2016 End: 12-18-2016 INR Coag RelTime (PPP) *PT/INR - Standing Order [employer] [facility] Work Phone: Start: 10-07-2016 End: 04-09-2016 *Hepatic Function Panel *Hepatic Function Panel [facility] Work Phone: Start: 10-07-2016 End: 10-07-2016 Follow Up Appt 3 months Follow Up Appt 3 months [facility] Work Phone: Start: 10-07-2016 End: 04-09-2016 Lipid panel [AGGREGATE] *Lipid Profile CC PCP [facility] Work Phone: Start: 10-07-2016 End: 10-07-2016 [facility] Work Phone: Start: 09-22-2016 Hepatitis B surface antibody level LDL CHOLESTEROL [facility] Start: 09-04-2016 Hepatitis B screening URINE ALBUMIN:CREATININE RATIO [facility] Start: 07-08-2016 End: 07-10-2016 Follow Up Appt 3 months Follow Up Appt 3 months [facility] Work Phone: Start: 07-08-2016 End: 07-10-2016 [facility] Work Phone: Start: 06-17-2016 End: 08-02-2016 Follow Up Appt 6 months Follow Up Appt 6 months [facility] [facility] Work Phone: Start: 06-17-2016 End: 08-02-2016 PFM PFM [facility] Work Phone: Start: 06-11-2016 HbA1c (Bld) [Mass fraction] HBA1C [facility] Start: 04-08-2016 End: 08-02-2016 Follow Up Appt 3 months Follow Up Appt 3 months [facility] [facility] Work Phone: Start: 04-08-2016 End: 08-02-2016 [facility] Work Phone: Start: 03-25-2016 End: 04-09-2016 *Hepatic Function Panel *Hepatic Function Panel [facility] Work Phone: Start: 03-25-2016 End: 04-09-2016 Lipid panel [AGGREGATE] *Lipid Profile CC PCP [facility] Work Phone: Start: 03-18-2016 Hepatitis C antibody, confirmatory test DILATED RETINAL EXAM [facility] Start: 01-08-2016 End: 08-02-2016 Follow Up Appt 3 months Follow Up Appt 3 months [facility] Work Phone: Start: 01-08-2016 End: 08-02-2016 [facility] Work Phone: Start: 11-08-2015 Urine microalbumin profile DTAP,TDAP,TD (2 - Tdap) [facility] Start: 10-23-2015 End: 10-31-2015 Follow Up Appt 6 months Follow Up Appt 6 months [facility] Work Phone: Start: 10-23-2015 End: 10-31-2015 PFM PFM [facility] Work Phone: Start: 10-09-2015 End: 10-31-2015 Follow Up Appt 3 months Follow Up Appt 3 months [facility] Work Phone: Start: 10-09-2015 End: 10-31-2015 Pacer [facility] Pacer [facility] Work Phone: Start: 09-20-2015 End: 09-25-2015 *Hepatic Function Panel *Hepatic Function Panel [facility] Work Phone: Start: 09-20-2015 End: 09-25-2015 Lipid panel [AGGREGATE] *Lipid Profile CC PCP [facility] Work Phone: Start: 07-05-2015 End: 03-05-2016 Follow Up Appt 3 months Follow Up Appt 3 months [facility] Work Phone: Start: 07-05-2015 End: 03-05-2016 [facility] Work Phone: Start: 04-25-2015 End: 04-25-2015 CBC W Auto Differential panel - Blood *CBC without Diff [facility] Work Phone: Start: 04-25-2015 End: 04-25-2015 INR Coag RelTime (PPP) *PT/INR [facility] Work Phone: Start: 04-10-2015 End: 04-10-2015 *CBC with Differential *CBC with Differential [facility] Work Phone: Start: 04-10-2015 End: 04-10-2015 INR Coag RelTime (PPP) *PT/INR [facility] Work Phone: Start: 04-03-2015 End: 03-05-2016 Follow Up Appt 3 months Follow Up Appt 3 months [facility] Work Phone: Start: 04-03-2015 End: 03-05-2016 Pacer Clinic Pacer Clinic [facility] Work Phone: Start: 03-30-2015 End: 04-18-2015 *UA - Urinalysis w/o Micro *UA - Urinalysis w/o Micro [facility] Work Phone: Start: 03-24-2015 End: 03-24-2015 Ecg routine ecg w/least 12 lds w/i&r EKG (In office) [facility] Work Phone: Start: 03-24-2015 End: 03-24-2015 Follow Up Appt 6 months Follow Up Appt 6 months [facility] Work Phone: Start: 03-24-2015 End: 03-24-2015 PFM PFM [facility] Work Phone: Start: 03-13-2015 End: 03-27-2015 *BMP *BMP [facility] Work Phone: Start: 03-13-2015 End: 03-27-2015 *UA - Urinalysis w/o Micro *UA - Urinalysis w/o Micro [facility] Work Phone: Start: 03-13-2015 End: 03-27-2015 CBC W Auto Differential panel - Blood *CBC without Diff [facility] Work Phone: Start: 03-13-2015 End: 04-18-2015 Chest x-ray X-Ray, Chest, PA & Lateral [facility] Work Phone: Start: 03-13-2015 End: 04-18-2015 Ecg routine ecg w/least 12 lds w/i&r EKG (In office) [facility] Work Phone: Start: 03-13-2015 End: 04-07-2015 INR Coag RelTime (PPP) *PT/INR [facility] Work Phone: Start: 03-13-2015 End: 03-30-2015 Pacemaker Generator Change Pacemaker Generator Change [facility] Work Phone: Start: 12-21-2014 End: 12-21-2014 Device Interrogation Device Interrogation [facility] Work Phone: Start: 12-21-2014 End: 04-18-2015 Follow Up Appt 2 months Follow Up Appt 2 months [facility] Work Phone: Start: 12-21-2014 End: 12-21-2014 Follow Up Appt 3 months Follow Up Appt 3 months [facility] Work Phone: Start: 12-21-2014 End: 04-18-2015 Pacer Clinic Pacer Clinic [facility] Work Phone: Start: 12-21-2014 End: 12-21-2014 PFM PFM [facility] Work Phone: Start: 10-17-2014 End: 11-23-2014 *Hepatic Function Panel *Hepatic Function Panel [facility] Work Phone: Start: 10-17-2014 End: 11-23-2014 Lipid panel [AGGREGATE] *Lipid Profile CC PCP [facility] Work Phone: Start: 08-22-2014 End: 12-21-2014 Follow Up Appt 3 months Follow Up Appt 3 months [facility] Work Phone: Start: 08-22-2014 End: 04-18-2015 Pacer Clinic Pacer Clinic [facility] Work Phone: Start: 05-09-2014 End: 05-09-2014 Device Interrogation Device Interrogation [facility] Work Phone: Start: 05-09-2014 End: 04-18-2015 Follow Up Appt 3 months Follow Up Appt 3 months [facility] Work Phone: Start: 05-09-2014 End: 05-09-2014 Follow Up Appt 6 months Follow Up Appt 6 months [facility] Work Phone: Start: 05-09-2014 End: 04-18-2015 Pacer Clinic Pacer Clinic [facility] Work Phone: Start: 05-09-2014 End: 05-09-2014 PFM PFM [facility] Work Phone: Start: 04-12-2014 End: 04-11-2014 *Hepatic Function Panel *Hepatic Function Panel [facility] Work Phone: Start: 04-12-2014 End: 04-11-2014 Lipid panel [AGGREGATE] *Lipid Profile CC PCP [facility] Work Phone: Start: 02-03-2014 End: 05-09-2014 Follow Up Appt 3 months Follow Up Appt 3 months [facility] Work Phone: Start: 02-03-2014 End: 05-09-2014 Pacer [facility] Pacer [facility] Work Phone: Start: 10-29-2013 End: 04-13-2014 Device Interrogation Device Interrogation [facility] Work Phone: Start: 10-29-2013 End: 04-13-2014 Follow Up Appt 3 months Follow Up Appt 3 months [facility] Work Phone: Start: 10-29-2013 End: 10-29-2013 Follow Up Appt 6 months Follow Up Appt 6 months [facility] Work Phone: Start: 10-29-2013 End: 04-13-2014 Pacer [facility] Pacer [facility] Work Phone: Start: 10-29-2013 End: 10-29-2013 PFM PFM [facility] Work Phone: Start: 08-02-2013 End: 08-04-2013 *Hepatic Function Panel *Hepatic Function Panel [facility] Work Phone: Start: 08-02-2013 End: 08-02-2013 Device Interrogation Device Interrogation [facility] Work Phone: Start: 08-02-2013 End: 08-02-2013 Follow Up Appt 3 months Follow Up Appt 3 months [facility] Work Phone: Start: 08-02-2013 End: 08-04-2013 Lipid panel [AGGREGATE] *Lipid Profile CC PCP [facility] Work Phone: Start: 08-02-2013 End: 08-02-2013 Pacer Clinic Pacer Clinic [facility] Work Phone: Start: 08-02-2013 End: 08-02-2013 PFM PFM [facility] Work Phone: Start: 06-09-2013 End: 08-02-2013 *Hepatic Function Panel *Hepatic Function Panel [facility] Work Phone: Start: 06-09-2013 End: 08-02-2013 Lipid panel [AGGREGATE] *Lipid Profile CC PCP [facility] Work Phone: Start: 04-26-2013 End: 04-28-2013 Ecg routine ecg w/least 12 lds w/i&r EKG (In office) [facility] Work Phone: Start: 04-26-2013 End: 04-28-2013 Echocardiography Echocardiogram (complete) [facility] Work Phone: Start: 04-26-2013 End: 04-28-2013 Follow Up Appt 3 months Follow Up Appt 3 months [facility] Work Phone: Start: 04-26-2013 End: 04-28-2013 PFM PFM [facility] Work Phone: Start: 03-03-2013 End: 04-28-2013 Follow Up Appt 3 months Follow Up Appt 3 months [facility] Work Phone: Start: 03-03-2013 End: 04-28-2013 Pacer Clinic Pacer Clinic [facility] Work Phone: Start: 02-24-2013 End: 02-24-2013 Ecg routine ecg w/least 12 lds w/i&r EKG (In office) [facility] Work Phone: Start: 02-24-2013 End: 02-24-2013 Follow Up Appt Other Follow Up Appt Other [facility] Work Phone: Start: 02-24-2013 End: 02-24-2013 PFM PFM [facility] Work Phone: Start: 02-23-2013 End: 02-24-2013 INR Coag RelTime (PPP) *PT/INR - Standing Order [facility] Work Phone: Start: 12-02-2012 End: 02-24-2013 *BMP *BMP [facility] Work Phone: Start: 12-02-2012 End: 12-03-2012 Cardioversion Cardioversion [facility] Work Phone: Start: 12-02-2012 End: [...] w/least 12 lds w/i&r EKG (In office) [facility] Work Phone: Start: 11-26-2012 End: 12-02-2012 Follow Up Appt 3 months Follow Up Appt 3 months [facility] Work Phone: Start: 11-26-2012 End: 12-02-2012 Follow Up Appt Other Follow Up Appt Other [facility] Work Phone: Start: 11-26-2012 End: 12-02-2012 Pacer Clinic Pacer Clinic [facility] Work Phone: Start: 11-26-2012 End: 11-26-2012 PFM PFM [facility] Work Phone: Start: 08-07-2012 End: 08-07-2012 Device Interrogation Device Interrogation [facility] Work Phone: Start: 08-07-2012 End: 08-07-2012 Follow Up Appt 3 months Follow Up Appt 3 months [facility] Work Phone: Start: 06-13-2012 [object Object] DIABETIC FOOT EXAM [facility] Start: 05-28-2012 End: 11-26-2012 *BMP *BMP [facility] Work Phone: Start: 05-07-2012 End: 05-14-2012 *BMP *BMP [facility] Work Phone: Start: 05-07-2012 End: 05-07-2012 Device Interrogation Device Interrogation [facility] Work Phone: Start: 05-07-2012 End: 05-07-2012 Ecg routine ecg w/least 12 lds w/i&r EKG (In office) [facility] Work Phone: Start: 05-07-2012 End: 05-07-2012 Echocardiography Echocardiogram (complete) [facility] Work Phone: Start: 05-07-2012 End: 05-07-2012 Follow Up Appt 3 months Follow Up Appt 3 months [facility] Work Phone: Start: 03-09-2012 End: 03-10-2012 24 hour holter monitor 24 hour holter monitor [facility] Work Phone: Start: 03-09-2012 End: 03-09-2012 Follow Up Appt 3 months Follow Up Appt 3 months [facility] Work Phone: Start: 12-30-2011 End: 05-07-2012 Device Interrogation Device Interrogation [facility] Work Phone: Start: 12-30-2011 End: 12-30-2011 Echocardiography Echocardiogram (limited) [facility] Work Phone: Start: 12-30-2011 End: 12-30-2011 Follow Up Appt 3 months Follow Up Appt 3 months [facility] Work Phone: Start: 10-13-2011 SHINGRIX VACCINE (2 of 3) SHINGRIX VACCINE (2 of 3) [facility] Start: 2005 ADVANCE DIRECTIVE DISCUSSION ADVANCE DIRECTIVE DISCUSSION [facility] Start: 1958 ANNUAL PCP TEAM CHRONIC DISEASE VISIT ANNUAL PCP TEAM CHRONIC DISEASE VISIT [facility] Start: 1958 BP CONTROLLED (<130/80) BP CONTROLLED (<130/80) [facility] inic Patient Education HYPERLIPIDEMIA , HYPERLIPIDEMIA, HYPERTENSION [facility] Work Phone: Immunizations Immunization Date Immunization Notes Care Provider Yrn abdalla 06-23-2008 influenza virus vacc ine, unspecified formulation NA [facility] 07-08-2006 pneumococcal polysac charide vaccine, 23 valent NA [facility] 06-18-2006 influenza virus vacc ine, unspecified formulation NA [facility] 11-07-2005 diphtheria and tetan us toxoids, adsorbed for pediatric use NA [facility] Payers Date Payer Category Payer Medicare HUMANA MEDICARE HU[employer]NA MEDICARE PPO [id number] 2009-2015 PPO [id number] 2005 Medicare MEDICARE MEDICAR E A AND B [id number] 2005-Present [place], [place] Medicare [id number] 1940 Unknown [id number] Medicare [id number] Medicare [id number] Social History Date Type Detail Facility Start: 08-01-2010 Tobacco smoking stat us MNIS Never smoker [facility] Start: 08-01-2010 Alcohol intake Current drinke r of alcohol (finding) [facility] Sex Assigned At Not on file [facility] Summary Purpose Family History No Family History Records FoundNo Family History Records Found Advance Directives No Advanced Directives Records FoundDocuments on File Type Date Recorded Patient Industrial Psychologist Expl anation Advance Directive(s) 11/17/2015 11:18 AM [...] DATE CREATED AUTHOR AUTHOR'S ORGANIZ ATION 04/16/2021 [facility] Comments (unrecognize d section and content) In the event this informatio n is protected by the Federal Confidentiality of Alcohol and Drug Abuse Patient Records regulations: The Federal rules restrict any use of the information to criminally investigate or prosecute any alcohol or drug abuse patient.[facility] FOR RECORDS PERTAINING TO PATIENTS WHO ARE [...] BE BASED ON THE PRIMARY CLINICAL RECORDS. [email or web address] [facility]. provides no warranty or guarantee of the accuracy or completeness of information in this document.
[2023-09-15 14:02] LABS: Troponin-I HS 22 pg/mL (3.0-54.0)
[2023-09-15 14:17] LABS: D-Dimer Quantitative (DVT/PE) < 0.27 FEU/ug/m (0.27-0.49)
[2023-09-15 14:22] LABS: International Normalized Ratio 2.5
[2023-09-15 14:23] LABS: Partial Thromboplast Time 42.8 Seconds (24.1-36.2)
--- OUTSIDE RECORDS SUMMARY | 2023-09-15 16:30 | XMS RPT_ITS | CCD ---
Author Name Unknown Address [address] [place] [address] Organization [facility] Care Team Providers Care Legal Operations Manager Name Role Phone Cher Gilliland RN Unavailable Unavailable Jackelyn WEAVER, John Hurtado Unavailable Cher Gilliland RN Unavailable Unavailable Karen Cortez Primary Care Provider Malinda Larson Primary Care Provider PAUL AUSTIN Admitting Unavailable PAUL AUSTIN Attending Unavailable PAUL AUSTIN Primary Care Unavailable Allergies Allergy Classification Reported Allergen(s) Allergy Type Date of Onset Reaction(s) Facility (4 sources) amiodarone Drug Allergy 1 Tremors [facility] Work Phone: (4 sources) Angiotensin Converting Enzyme (Sha) Inhibitors drug allergy 2 cough [facility] Work Phone: (5 sources) iodine Drug Allergy 5 Anaphylaxis [facility] Work Phone: (1 source) Hmg-Coa Reductase Inhibitors (Statins) Drug Intolerance 1 Other: See Comments [facility] Medications Completed/Discontinued Medications Medication Drug Class(es) [...] 2 weeks, then daily dose AMIODARONE HCL [id number] [place] amoxicillin 500 mg oral tablet (8 sources) Penicillin-class Antibacterial Start: 01-23-2011 End: 10-23-2015 take 4 tablets by mouth every hour AMOXICILLIN 500 MG TABS 4 tablets by mouth 1 hr prior to procedure AMOXICILLIN [id number] John Hayden MD aspirin 81 mg oral tablet (8 sources) Nonsteroidal Anti-inflammatory Drug Start: 01-04-2013 End: 12-04-2015 take 1 tablet by mouth once daily ASPIRIN 81 MG TABS One tablet by mouth daily ASPIRIN [id number] Cher Gilliland RN calcium carbonate 1500 mg [...] (4 sources) Long-term drug therapy; Translations: [Other prison (current) drug therapy] Onset: 01-23-2011 01-23-2011 Unclassified [...] BP Diastolic 48 mm[Hg] John Hayden MD [facility] Work Phone: 06-04-2017 14:51-0400 BP Systolic 100 mm[Hg] John Hayden MD [facility] Work Phone: 06-04-2017 14:51-0400 Height 158.75 cm John Hayden MD [facility] Work Phone: 06-04-2017 14:51-0400 Pulse (Heart Rate) 70 /min [facility] Work Phone: 06-04-2017 14:51-0400 Respiratory Rate 12 /min John Hayden MD [facility] Work Phone: 06-04-2017 14:51-0400 Weight 55.43 kg [facility] Work Phone: 06-17-2016 15:06-0400 BSA (Body Surface Area) 1.57 m2 John Hayden MD [facility] Work Phone: Encounters Encounter Date Encounter Type Care Provider Facility Start: 04-16-2021 End: 04-16-2021 [facility] Start: 09-13-2010 End: 09-13-2010 Patient encounter procedure A Suresh Rivera Work Phone: [facility] Start: 09-13-2010 Results Only A Suresh sheppard Work Phone: [facility][1] Procedures Date Procedure Procedure Detail Performing Clinician Start: 06-04-2017 End: 06-17-2017 Echocardiography John Hayden MD Start: 06-04-2017 End: 06-04-2017 Follow Up Appt 6 months John Hayden MD Start: 06-04-2017 End: 06-04-2017 PFM John Hayden MD Start: 04-29-2017 End: 04-30-2017 Interrogation eval remote 90 d 1/2/mainspring torque tester ld dfb Adrianne Plummer PA-C Work Phone: Start: 01-16-2017 End: 01-26-2017 Interrogation eval remote 90 d 1/2/mainspring torque tester ld dfb Adrianne Plummer PA-C Work Phone: Start: 10-07-2016 End: 10-07-2016 Interrogation eval remote 90 d 1/2/mainspring torque tester ld dfb Adrianne Plummer PA-C Work Phone: Start: 07-08-2016 End: 07-10-2016 Interrogation eval remote 90 d 1/2/mainspring torque tester ld dfb Adrianne Plummer PA-C Work Phone: Start: 06-17-2016 End: 08-02-2016 Follow Up Appt 6 months John Hayden MD Start: 06-17-2016 End: 08-02-2016 PFMiriam Hayden MD Start: 04-08-2016 End: 08-02-2016 Follow Up Appt 3 months John Hayden MD Start: 04-08-2016 End: 04-09-2016 Interrogation eval remote 90 d 1/2/mainspring torque tester ld dfb John Hayden MD Start: 04-08-2016 End: 08-02-2016 Pacer Clinic John Hayden MD Start: 03-25-2016 End: 04-09-2016 *Hepatic Function Panel John Hayden MD Start: 03-25-2016 End: 04-09-2016 Lipid 1996 panel - Serum or Plasma John Hayden MD Start: 01-08-2016 End: 08-02-2016 Follow Up Appt 3 months John Hayden MD Start: 01-08-2016 End: 01-08-2016 Interrogation eval remote 90 d 1/2/mainspring torque tester ld dfb John Hayden MD Start: 01-08-2016 End: 08-02-2016 Pacer Clinic John Hayden MD Start: 10-23-2015 End: 10-31-2015 Follow Up Appt 6 months John Hayden MD Start: 10-23-2015 End: 10-31-2015 PFM John Hayden MD Start: 10-09-2015 End: 10-31-2015 Follow Up Appt 3 months John Hayden MD Start: 10-09-2015 End: 10-09-2015 Interrogation eval remote 90 d 1/2/mainspring torque tester ld dfb John Hayden MD Start: 10-09-2015 End: 10-31-2015 Pacer Clinic John Hayden MD Start: 09-20-2015 End: 09-25-2015 *Hepatic Function Panel John Hayden MD Start: 09-20-2015 End: 09-25-2015 Lipid 1996 panel - Serum or Plasma John Hayden MD Start: 07-05-2015 End: 03-05-2016 Follow Up Appt 3 months John Hayden MD Start: 07-05-2015 End: 07-05-2015 Interrogation eval remote 90 d 1/2/mainspring torque tester ld dfb John Hayden MD Start: 07-05-2015 [...] 10-29-2013 Follow Up Appt 6 months John Hyaden MD Start: 10-29-2013 End: 04-13-2014 Pacer Clinic [...] Start: 08-02-2013 End: 08-02-2013 Pacer Clinic John Hyaden MD Start: 08-02-2013 End: 08-02-2013 PFM John [...] Author Start: 04-18-2020 Influenza vaccination INFLUENZA (#1) [facility] Start: 02-21-2020 Colonoscopy COLONOSCOPY [facility] Start: 02-04-2018 End: 02-04-2018 Appointment Appointment [facility] Work Phone: Start: 08-04-2017 End: 08-04-2017 Appointment Appointment [facility] Work Phone: Start: 06-30-2017 End: 06-30-2017 Cardiac Referral Cardiac Referral Bubba Valenzuela, [facility] [place], [address] [place] [address], [id number] [email or web address] Work Phone: Start: 06-04-2017 End: 06-04-2017 Echocardiography Echocardiogram (complete) [email or web address] Work Phone: Start: 06-04-2017 End: 06-04-2017 Follow Up Appt 6 months Follow Up Appt 6 months [facility] Work Phone: Start: 06-04-2017 End: 06-04-2017 PFM PFM [facility] Work Phone: Start: 04-29-2017 End: 04-30-2017 Follow Up Appt 3 months Follow Up Appt 3 months [facility] Phone: Start: 04-29-2017 End: 04-30-2017 Pacer Clinic Pacer Clinic [facility] Work Phone: Start: 01-16-2017 End: 01-26-2017 Follow Up Appt 3 months Follow Up Appt 3 months [facility] Work Phone: Start: 01-16-2017 End: 01-26-2017 Pacer Clinic Pacer Clinic [facility] Work Phone: Start: 12-18-2016 End: 12-18-2016 INR Coag RelTime (PPP) *PT/INR - Standing Order [facility] Work Phone: Start: 10-07-2016 End: 04-09-2016 *Hepatic Function Panel *Hepatic Function Panel [facility] Work Phone: Start: 10-07-2016 End: 10-07-2016 Follow Up Appt 3 months Follow Up Appt 3 months [facility] Work Phone: Start: 10-07-2016 End: 04-09-2016 Lipid panel [AGGREGATE] *Lipid Profile CC PCP [email or web address] Work Phone: Start: 10-07-2016 End: 10-07-2016 [facility] Work Phone: Start: 09-22-2016 Hepatitis B surface antibody level LDL CHOLESTEROL [facility] Start: 09-04-2016 Hepatitis B screening URINE ALBUMIN:CREATININE RATIO [facility] Start: 07-08-2016 End: 07-10-2016 Follow Up Appt 3 months Follow Up Appt 3 months [facility] Work Phone: Start: 07-08-2016 End: 07-10-2016 [facility] Work Phone: Start: 06-17-2016 End: 08-02-2016 Follow Up Appt 6 months Follow Up Appt 6 months [facility] Work Phone: Start: 06-17-2016 End: 08-02-2016 PFM PFM [employer] Work Phone: Start: 06-11-2016 HbA1c (Bld) [Mass fraction] HBA1C [facility] Start: 04-08-2016 End: 08-02-2016 Follow Up Appt 3 months Follow Up Appt 3 months [facility] Work Phone: Start: 04-08-2016 End: 08-02-2016 [facility] Work Phone: Start: 03-25-2016 End: 04-09-2016 *Hepatic Function Panel *Hepatic Function Panel [facility] Work Phone: Start: 03-25-2016 End: 04-09-2016 Lipid panel [AGGREGATE] *Lipid Profile CC PCP [facility] Work Phone: Start: 03-18-2016 Hepatitis C antibody, confirmatory test DILATED RETINAL EXAM [facility] Start: 01-08-2016 End: 08-02-2016 Follow Up Appt 3 months Follow Up Appt 3 months [employer] Work Phone: Start: 01-08-2016 End: 08-02-2016 [facility] Work Phone: Start: 11-08-2015 Urine microalbumin profile DTAP,TDAP,TD (2 - Tdap) [facility] Start: 10-23-2015 End: 10-31-2015 Follow Up Appt 6 months Follow Up Appt 6 months [facility] Work Phone: Start: 10-23-2015 End: 10-31-2015 PFM PFM [facility] Work Phone: Start: 10-09-2015 End: 10-31-2015 Follow Up Appt 3 months Follow Up Appt 3 months [facility] Work Phone: Start: 10-09-2015 End: 10-31-2015 Pacer [facility] Pacer [facility] Work Phone: Start: 09-20-2015 End: 09-25-2015 *Hepatic Function Panel *Hepatic Function Panel [facility] Work Phone: Start: 09-20-2015 End: 09-25-2015 Lipid panel [AGGREGATE] *Lipid Profile CC PCP [facility] Work Phone: Start: 07-05-2015 End: 03-05-2016 Follow Up Appt 3 months Follow Up Appt 3 months [facility] Work Phone: Start: 07-05-2015 End: 03-05-2016 [facility] Work Phone: Start: 04-25-2015 End: 04-25-2015 CBC W Auto Differential panel - Blood *CBC without Diff [facility] Work Phone: Start: 04-25-2015 End: 04-25-2015 INR Coag RelTime (PPP) *PT/INR [facility] Work Phone: Start: 04-10-2015 End: 04-10-2015 *CBC with Differential *CBC with Differential [facility] Work Phone: Start: 04-10-2015 End: 04-10-2015 INR Coag RelTime (PPP) *PT/INR [facility] Work Phone: Start: 04-03-2015 End: 03-05-2016 Follow Up Appt 3 months Follow Up Appt 3 months [facility] Work Phone: Start: 04-03-2015 End: 03-05-2016 Pacer Clinic Pacer Clinic [facility] Work Phone: Start: 03-30-2015 End: 04-18-2015 *UA - Urinalysis w/o Micro *UA - Urinalysis w/o Micro [facility] Work Phone: Start: 03-24-2015 End: 03-24-2015 Ecg routine ecg w/least 12 lds w/i&r EKG (In office) [facility] Work Phone: Start: 03-24-2015 End: [...] Chest x-ray X-Ray, Chest, PA & Lateral [facility] Work Phone: Start: 03-13-2015 End: [...] 2 months Follow Up Appt 2 months [facility] Work Phone: Start: 12-21-2014 End: 12-21-2014 Follow Up Appt 3 months Follow Up Appt 3 months [facility] Work Phone: Start: 12-21-2014 End: 04-18-2015 Pacer Clinic Pacer Clinic [facility] Work Phone: Start: 12-21-2014 End: 12-21-2014 PFM PFM [facility] Work Phone: Start: 10-17-2014 End: 11-23-2014 *Hepatic Function Panel *Hepatic Function Panel [facility] Work Phone: Start: 10-17-2014 End: 11-23-2014 Lipid panel [AGGREGATE] *Lipid Profile CC PCP [facility] Work Phone: Start: 08-22-2014 End: 12-21-2014 Follow Up Appt 3 months Follow Up Appt 3 months [facility] Work Phone: Start: 08-22-2014 End: 04-18-2015 Pacer Clinic Pacer Clinic [facility] Work Phone: Start: 05-09-2014 End: 05-09-2014 Device Interrogation Device Interrogation [facility] Work Phone: Start: 05-09-2014 End: 04-18-2015 Follow Up Appt 3 months Follow Up Appt 3 months [facility] Work Phone: Start: 05-09-2014 End: 05-09-2014 Follow Up Appt 6 months Follow Up Appt 6 months [facility] Work Phone: Start: 05-09-2014 End: 04-18-2015 Pacer Clinic Pacer Clinic [facility] Work Phone: Start: 05-09-2014 End: 05-09-2014 PFM PFM [facility] Work Phone: Start: 04-12-2014 End: 04-11-2014 *Hepatic Function Panel *Hepatic Function Panel [facility] Work Phone: Start: 04-12-2014 End: 04-11-2014 Lipid panel [AGGREGATE] *Lipid Profile CC PCP [facility] Work Phone: Start: 02-03-2014 End: 05-09-2014 Follow Up Appt 3 months Follow Up Appt 3 months [facility] Work Phone: Start: 02-03-2014 End: 05-09-2014 Pacer [facility] Pacer [facility] Work Phone: Start: 10-29-2013 End: 04-13-2014 Device Interrogation Device Interrogation [facility] Work Phone: Start: 10-29-2013 End: 04-13-2014 Follow Up Appt 3 months Follow Up Appt 3 months [facility] Work Phone: Start: 10-29-2013 End: 10-29-2013 Follow Up Appt 6 months Follow Up Appt 6 months [facility] Work Phone: Start: 10-29-2013 End: 04-13-2014 Pacer [facility] Pacer [facility] Work Phone: Start: 10-29-2013 End: 10-29-2013 PFM PFM [facility] Work Phone: Start: 08-02-2013 End: 08-04-2013 *Hepatic Function Panel *Hepatic Function Panel [facility] Work Phone: Start: 08-02-2013 End: 08-02-2013 Device Interrogation Device Interrogation [facility] Work Phone: Start: 08-02-2013 End: 08-02-2013 Follow Up Appt 3 months Follow Up Appt 3 months [facility] Work Phone: Start: 08-02-2013 End: 08-04-2013 Lipid panel [AGGREGATE] *Lipid Profile CC PCP [facility] Work Phone: Start: 08-02-2013 End: 08-02-2013 Pacer Clinic Pacer Clinic [facility] Work Phone: Start: 08-02-2013 End: 08-02-2013 PFM PFM [facility] Work Phone: Start: 06-09-2013 End: 08-02-2013 *Hepatic Function Panel *Hepatic Function Panel [email or web address] Work Phone: Start: 06-09-2013 End: 08-02-2013 Lipid panel [AGGREGATE] *Lipid Profile CC PCP [facility] Work Phone: Start: 04-26-2013 End: 04-28-2013 Ecg routine ecg w/least 12 lds w/i&r EKG (In office) [facility] Work Phone: Start: 04-26-2013 End: 04-28-2013 Echocardiography Echocardiogram (complete) [facility] Work Phone: Start: 04-26-2013 End: 04-28-2013 Follow Up Appt 3 months Follow Up Appt 3 months [facility] Work Phone: Start: 04-26-2013 End: 04-28-2013 PFM PFM [facility] Work Phone: Start: 03-03-2013 End: 04-28-2013 Follow Up Appt 3 months Follow Up Appt 3 months [facility] Work Phone: Start: 03-03-2013 End: 04-28-2013 Pacer Clinic Pacer Clinic [facility] Work Phone: Start: 02-24-2013 End: 02-24-2013 Ecg routine ecg w/least 12 lds w/i&r EKG (In office) [facility] Work Phone: Start: 02-24-2013 End: 02-24-2013 Follow Up Appt Other Follow Up Appt Other [facility] Work Phone: Start: 02-24-2013 End: 02-24-2013 PFM PFM [facility] Work Phone: Start: 02-23-2013 End: 02-24-2013 INR Coag RelTime (PPP) *PT/INR - Standing Order [facility] Work Phone: Start: 12-02-2012 End: 02-24-2013 *BMP *BMP [facility] Work Phone: Start: 12-02-2012 End: 12-03-2012 Cardioversion Cardioversion [facility] Work Phone: Start: 12-02-2012 End: [...] w/least 12 lds w/i&r EKG (In office) [facility] Work Phone: Start: 11-26-2012 End: 12-02-2012 Follow Up Appt 3 months Follow Up Appt 3 months [facility] Work Phone: Start: 11-26-2012 End: 12-02-2012 Follow Up Appt Other Follow Up Appt Other [facility] Work Phone: Start: 11-26-2012 End: 12-02-2012 Pacer Clinic Pacer Clinic [facility] Work Phone: Start: 11-26-2012 End: 11-26-2012 PFM PFM [facility] Work Phone: Start: 08-07-2012 End: 08-07-2012 Device Interrogation Device Interrogation [facility] Work Phone: Start: 08-07-2012 End: 08-07-2012 Follow Up Appt 3 months Follow Up Appt 3 months [facility] Work Phone: Start: 06-13-2012 [object Object] DIABETIC FOOT EXAM [facility] Start: 05-28-2012 End: 11-26-2012 *BMP *BMP [facility] Work Phone: Start: 05-07-2012 End: 05-14-2012 *BMP *BMP [facility] Work Phone: Start: 05-07-2012 End: 05-07-2012 Device Interrogation Device Interrogation [facility] Work Phone: Start: 05-07-2012 End: 05-07-2012 Ecg routine ecg w/least 12 lds w/i&r EKG (In office) [facility] Work Phone: Start: 05-07-2012 End: 05-07-2012 Echocardiography Echocardiogram (complete) [facility] Work Phone: Start: 05-07-2012 End: 05-07-2012 Follow Up Appt 3 months Follow Up Appt 3 months [facility] Work Phone: Start: 03-09-2012 End: 03-10-2012 24 hour holter monitor 24 hour holter monitor [facility] Work Phone: Start: 03-09-2012 End: 03-09-2012 Follow Up Appt 3 months Follow Up Appt 3 months [facility] Work Phone: Start: 12-30-2011 End: 05-07-2012 Device Interrogation Device Interrogation [facility] Work Phone: Start: 12-30-2011 End: 12-30-2011 Echocardiography Echocardiogram (limited) [facility] Work Phone: Start: 12-30-2011 End: 12-30-2011 Follow Up Appt 3 months Follow Up Appt 3 months [facility] Work Phone: Start: 10-13-2011 SHINGRIX VACCINE (2 of 3) SHINGRIX VACCINE (2 of 3) [facility] Start: 2005 ADVANCE DIRECTIVE DISCUSSION ADVANCE DIRECTIVE DISCUSSION [facility] Start: 1958 ANNUAL PCP TEAM CHRONIC DISEASE VISIT ANNUAL PCP TEAM CHRONIC DISEASE VISIT [facility] Start: 1958 BP CONTROLLED (<130/80) BP CONTROLLED (<130/80) [facility] inic Patient Education HYPERLIPIDEMIA , HYPERLIPIDEMIA, HYPERTENSION [facility] Work Phone: Immunizations Immunization Date Immunization Notes Care Provider Yrn abdalla 06-23-2008 influenza virus vacc ine, unspecified formulation NA [facility] 07-08-2006 pneumococcal polysac charide vaccine, 23 valent NA [facility] 06-18-2006 influenza virus vacc ine, unspecified formulation NA [facility] 11-07-2005 diphtheria and tetan us toxoids, adsorbed for pediatric use NA [facility] Payers Date Payer Category Payer Medicare HUMANA MEDICARE HU[employer]NA MEDICARE PPO [id number] 2009-2015 PPO [id number] 2005 Medicare MEDICARE MEDICAR E A AND B [id number] 2005-Present [place] Medicare [id number] 1940 Unknown [id number] Medicare [id number] Medicare [id number] Social History Date Type Detail Facility Start: 08-01-2010 Tobacco smoking stat us NCIS Never smoker [facility] Start: 08-01-2010 Alcohol intake Current drinke r of alcohol (finding) [facility] Sex Assigned At Not on file [facility] Summary Purpose Family History No Family History Records FoundNo Family History Records Found Advance Directives No Advanced Directives Records FoundDocuments on File Type Date Recorded Patient Learning Support Resource Room Teacher Expl anation Advance Directive(s) 11/17/2015 11:18 AM [...] DATE CREATED AUTHOR AUTHOR'S ORGANIZ ATION 04/16/2021 [facility] Source Comments (unrecognize d section and content) In the event this informatio n is protected by the Federal Confidentiality of Alcohol and Drug Abuse Patient Records regulations: The Federal rules restrict any use of the information to criminally investigate or prosecute any alcohol or drug abuse patient.[facility] FOR RECORDS PERTAINING TO PATIENTS WHO [...] BE BASED ON THE PRIMARY CLINICAL RECORDS. [employer] [facility]. provides no warranty or guarantee of the accuracy or completeness of information in this document.
--- NOTE | 2023-09-15 16:41 | PCM.HP.STD ---
HPI - General General Date of Admission: 09/15/23 Date of Service: 09/15/23 Chief Complaint: SOB, cough, weakness HPI Narrative JAMES BURK, is a 82-year-old female history of anxiety, permanent pacemaker, CHF, mechanical mitral valve, A-fib, hypothyroidism who presented to [facility] 09/15/2023 with increased shortness of breath x 1 week specifically on exertion. Gets somewhat better after taking Mucinex DM but has been having a cough with white sputum and rhinorrhea. She has been feeling very weak and fell last night and injured her left knee. In the ED she was found to have RSV and was hyponatremic, due to her weakness and above findings hospitalist contacted for admission. Patient evaluated bedside. Patient reports she has had shortness of breath since COVID back in July however over the past 3 days she has had increased cough and shortness of breath and generalized weakness, had a fall yesterday where her legs came out from under her because she was so weak and also had some diarrhea, has significant cough but has difficulty producing sputum, overall feels generally weak and unsafe to go home. Denies chest pain, has a headache with significant coughing fits, has had somewhat poor p.o. intake especially poor liquid intake. Denies any other focal complaints [facility], [facility] Medical History Anxiety Anxiety states Arthritis Atrial dysrhythmia Bladder disease Cancer Cardiac pacemaker Cardiology follow-up encounter Chronic systolic congestive heart failure Dilated cardiomyopathy Essential hypertension Fibromyalgia Gastric reflux High cholesterol History of breast cancer History of CHF (congestive heart failure) History of echocardiogram History of esophageal reflux History of irregular heartbeat History of mitral valve disorder History of pain when walking History of stress test HLD (hyperlipidemia) Hypertension Leg cramps shelter current use of anticoagulant Loss of hearing Melanoma Non-smoker 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 tachycardia Paroxysmal atrial fibrillation Paroxysmal atrial flutter Shortness of breath on exertion Thyroid disease Ventricular tachycardia Walker as ambulation aid Wears glasses Home Medications multivitamin 1 ea PO DAILY supplement 08/01/17 [History Last Taken 09/14/23] cholecalciferol (vitamin D3) 50 mcg (2,000 unit) capsule 50 mcg PO DAILY 01/24/21 [History Last Taken 09/14/23] thyroid (pork) 30 mg tablet 30 mg PO DAILY 01/29/21 [History Last Taken 09/14/23] sacubitril 97 mg-valsartan 103 mg tablet (Entresto) 1 tab PO BID 05/07/21 [History Last Taken 09/15/23] carvedilol 25 mg tablet (Coreg) 25 mg PO BID #180 tabs 10/22/22 [Rx Last Taken 09/14/23] warfarin 5 mg tablet 5 mg PO .COMPLEX #135 tabs 11/21/22 [Rx Last Taken 09/14/23] acetaminophen 650 mg tablet,extended release 650 mg PO DAILY PRN pain/fever 04/28/23 [History Last Taken 09/14/23] furosemide 40 mg tablet 40 mg PO DAILY 08/01/23 [History Last Taken 09/14/23] pravastatin 20 mg tablet 20 mg PO QHS cholesterol #90 tabs 08/26/23 [Rx Last Taken 09/14/23] primidone 50 mg tablet 50 mg PO BID #60 tabs 09/04/23 [Rx Last Taken 09/14/23] albuterol sulfate 90 mcg/actuation aerosol inhaler 2 puff inhalation Q4H PRN shortness of breath or wheezing 09/15/23 [History Last Taken 09/13/23] tramadol 50 mg tablet 50 mg PO Q12H 09/15/23 [History Last Taken 09/14/23] Allergy/AdvReac Type Severity Reaction Status Date / Time HERMILO Inhibitors Allergy Unknown Verified 09/15/23 12:11 amiodarone Allergy Unknown Verified 09/15/23 12:11 Iodinated Contrast Media [CT] Allergy Nausea/Vom/ Verified 09/15/23 12:11 Diarrhea levothyroxine AdvReac Unknown Nausea Verified 09/15/23 12:11 levothyroxine sodium AdvReac Unknown Nausea Verified 09/15/23 12:11 [From Unithroid] Family History Father Hypertension Cancer Mother Cancer Hypertension Surgical History History of breast implant History of cardiac catheterization History of knee surgery History of local excision of skin lesion History of mastectomy History of mitral valve replacement (~06/1997) History of radiofrequency ablation procedure for cardiac arrhythmia History of tonsillectomy and adenoidectomy Hx of mitral valve repair Presence of implantable cardioverter-defibrillator (ICD) Social History Smoking Status: Never smoker alcohol intake: never caffeine: No additional social history: pt on coumadin pt does not take aspirin, does not take ibuprofen, denies vaping or edibles. ROS ROS Narrative General: Feels generally unwell HENT: Occasional headache, nasal congestion EYES: Denies changes in vision Resp: Significant cough with difficulty producing sputum, increased shortness of breath for 3 days Cardiac: Denies chest pain GI: Denies abdominal pain, poor p.o. intake, diarrhea last night, denies nausea/vomiting decreased urination due to poor p.o. Extremity: Denies swelling MSK: Generalized weakness Neuro: Denies any numbness/tingling Heme: Denies any bleeding or bruising Skin: Denies rashes Psychiatric: No complaints voiced Vital Signs Vital Signs Vital Signs: 09/15/23 12:09 09/15/23 13:05 09/15/23 13:05 Temperature 98.5 F Temperature Source Temporal Pulse Rate 73 70 Respiratory Rate 14 18 Respiratory Effort Blood Pressure 145/86 H 132/54 H Blood Pressure Mean 105 80 Pulse Ox 94 96 96 Oxygen Delivery Method Room Air Room Air Room Air 09/15/23 13:44 09/15/23 14:00 09/15/23 15:00 Temperature Temperature Source Pulse Rate 70 85 Respiratory Rate Respiratory Effort Short of Breath Blood Pressure 139/54 H 123/67 H Blood Pressure Mean 82 85 Pulse Ox 95 96 Oxygen Delivery Method Room Air Room Air Room Air Physical Exam Narrative General: Alert, oriented, appears unwell HEENT: Atraumatic, normocephalic Eyes: Anicteric, normal conjunctiva, extraocular movements grossly intact Neck: Supple Respiratory: Increased respiratory effort with significant coughing and diffuse wheezes Cardiovascular: Regular rate GI: Soft, nontender, nondistended Extremities: No edema Musculoskeletal: Moving all extremities Neuro: No overt focal neurological deficits Skin: No rashes appreciated Psych: Cooperative Results Lab / Micro Data 09/15/23 12:40 09/15/23 12:40 Labs: Laboratory Results - last 24 hr 09/15/23 12:35: Troponin I High Sens 22 09/15/23 12:40: WBC 6.7, RBC 3.59 L, Hgb 11.3 L, Hct 33.4 L, MCV 93.0, MCH 31.5, MCHC 33.8, RDW Std Deviation 45.2 H, RDW Coeff of Ana Maria 13.2, Plt Count 136 L, MPV 10.5, Immature Gran % (Auto) 0.600, Neut % (Auto) 84.1 H, Lymph % (Auto) 6.3 L, [place] % (Auto) 8.0, Eos % (Auto) 0.8, Baso % (Auto) 0.2, Absolute Neuts (auto) 5.6, Absolute Lymphs (auto) 0.42 L, Nucleated RBC % 0, Sodium 126 L, Potassium 4.4, Chloride 94 L, Carbon Dioxide 26.0, Anion Gap 6, BUN 21 H, Creatinine 0.91, Est GFR (MDRD) Af Amer 76, Est GFR (MDRD) Non-Af 63, BUN/Creatinine Ratio 23.0 H, Glucose 180 H, Calcium 8.7 09/15/23 13:53: PT 27.0 H, INR 2.5, APTT 42.8 H, D-Dimer Quant (PE/DVT) < 0.27 L Micro: Microbiology 09/15/23 12:35 Mucosa - Nose SARS-CoV-2, Influenza & RSV (PCR) - Final RSV Imaging Radiology Impression Chest X-Ray 09/15/23 13:02 IMPRESSION: Stable chest with no acute or active cardiopulmonary disease. Electronically Signed: Franck Gupta MD at 13:29 EST Reading Location ID and State: [address] [place] [address] , Service support , Assessment & Plan Assessment/Plan (1) Respiratory syncytial virus (RSV): (2) Weakness: (3) Paroxysmal atrial fibrillation: (4) Hypothyroidism: (5) History of mitral valve replacement: (6) Essential hypertension: (7) Chronic systolic congestive heart failure: (8) Cardiac pacemaker: PLAN: Plan #Increased SOB and cough 2/2 RSV -Nebs, albuterol prn -mucinex -Supportive care -i/s #Generalized weakness -Likely 2/2 viral illness and hyponatremia -Supportive care -low na w/u -pt/ot #Hyponatremia -Will check urine and serum osmole's -Check urine lytes/urine studies -Trend BMP # Chronic heart failure with reduced ejection fraction/history of permanent pacemaker -Daily weights, I's and O's -Continue home meds but hold Lasix while trending BMP, patient does not appear volume overloaded, if anything somewhat volume depleted w/ poor po and diarrhea #Hypothyroidism -Continue home medications # History of A-fib/flutter/mechanical mitral valve -INR 2.5 -Daily INRs -Continue home Coumadin #DVT ppx: Continue Coumadin, presently therapeutic, goal 2.5-3.5 Hailey Zhang MD Time spent in the patient's overall evaluation,decision-making process, review of diagnostic data, adjustment of management, discussion with other providers, nursing nursing and ancillary staff involved in patient's care documentation, 56 minutes Charges/Coding Visit Charges Inpatient E&M: 57460 Init Hosp L2
--- OUTSIDE RECORDS SUMMARY | 2023-09-15 17:19 | XMS RPT_ITS | CCD ---
Author Name Unknown Address [address] [place] [address] Organization [facility] Care Team Providers Care Service Desk Specialist Name Role Phone Cher Gilliland RN Unavailable Unavailable Jackelyn WEAVER, John Hurtado Unavailable [phone] Cher Gilliland RN Unavailable Unavailable Karen Cortez Primary Care Provider [phone] Malinda Larson Primary Care Provider PAUL AUSTNI Admitting Unavailable PAUL AUSTIN Attending Unavailable PAUL AUSTIN Primary Care Unavailable Allergies Allergy Classification Reported Allergen(s) Allergy Type Date of Onset Reaction(s) Facility (4 sources) amiodarone Drug Allergy 1 Tremors [facility] Work Phone: (4 sources) Angiotensin Converting Enzyme (Sha) Inhibitors drug allergy 2 cough [facility] Work Phone: (5 sources) iodine Drug Allergy 5 Anaphylaxis [facility] Work Phone: (1 source) Hmg-Coa Reductase Inhibitors (Statins) Drug Intolerance 1 Other: See Comments [facility] Medications Completed/Discontinued Medications Medication Drug Class(es) Dates [...] 2 weeks, then daily dose AMIODARONE HCL [id number] [place] amoxicillin 500 mg oral tablet (8 sources) Penicillin-class Antibacterial Start: 01-23-2011 End: 10-23-2015 take 4 tablets by mouth every hour AMOXICILLIN 500 MG TABS 4 tablets by mouth 1 hr prior to procedure AMOXICILLIN [id number] John Hayden MD aspirin 81 mg oral tablet (8 sources) Nonsteroidal Anti-inflammatory Drug Start: 01-04-2013 End: 12-04-2015 take 1 tablet by mouth once daily ASPIRIN 81 MG TABS One tablet by mouth daily ASPIRIN [id number] Cher Gilliland RN calcium carbonate 1500 mg [...] (4 sources) Long-term drug therapy; Translations: [Other [facility] (current) drug therapy] Onset: 01-23-2011 01-23-2011 Unclassified [...] BP Diastolic 48 mm[Hg] John Hayden MD [facility] Work Phone: 06-04-2017 14:51-0400 BP Systolic 100 mm[Hg] John Hayden MD [facility] Work Phone: 06-04-2017 14:51-0400 Height 158.75 cm John Hayden MD [facility] Work Phone: 06-04-2017 14:51-0400 Pulse (Heart Rate) 70 /min [facility] Work Phone: 06-04-2017 14:51-0400 Respiratory Rate 12 /min John Hayden MD [facility] Work Phone: 06-04-2017 14:51-0400 Weight 55.43 kg [facility] Work Phone: 06-17-2016 15:06-0400 BSA (Body Surface Area) 1.57 m2 John Hayden MD [facility] Work Phone: Encounters Encounter Date Encounter Type Care Provider Facility Start: 04-16-2021 End: 04-16-2021 [facility] Start: 09-13-2010 End: 09-13-2010 Patient encounter procedure A Suresh Rivera Work Phone: [facility] Start: 09-13-2010 Results Only A Suresh sheppard Work Phone: [facility] Procedures Date Procedure Procedure Detail Performing Clinician Start: 06-04-2017 End: 06-17-2017 Echocardiography John Hayden MD Start: 06-04-2017 End: 06-04-2017 Follow Up Appt 6 months John Hayden MD Start: 06-04-2017 End: 06-04-2017 PFM John Hayden MD Start: 04-29-2017 End: 04-30-2017 Interrogation eval remote 90 d 1/2/trimmer operator ld dfb Adrianne Plummer PA-C Work Phone: Start: 01-16-2017 End: 01-26-2017 Interrogation eval remote 90 d 1/2/trimmer operator ld dfb Adrianne Plummer PA-C Work Phone: Start: 10-07-2016 End: 10-07-2016 Interrogation eval remote 90 d 1/2/trimmer operator ld dfb Adrianne Plummer PA-C Work Phone: Start: 07-08-2016 End: 07-10-2016 Interrogation eval remote 90 d 1/2/trimmer operator ld dfb Adrianne Plummer PA-C Work Phone: Start: 06-17-2016 End: 08-02-2016 Follow Up Appt 6 months John Hayden MD Start: 06-17-2016 End: 08-02-2016 PFMiriam Hayden MD Start: 04-08-2016 End: 08-02-2016 Follow Up Appt 3 months John Hayden MD Start: 04-08-2016 End: 04-09-2016 Interrogation eval remote 90 d 1/2/trimmer operator ld dfb John Hayden MD Start: 04-08-2016 End: 08-02-2016 Pacer Clinic John Hayden MD Start: 03-25-2016 End: 04-09-2016 *Hepatic Function Panel John Hayden MD Start: 03-25-2016 End: 04-09-2016 Lipid 1996 panel - Serum or Plasma John Hayden MD Start: 01-08-2016 End: 08-02-2016 Follow Up Appt 3 months John Hayden MD Start: 01-08-2016 End: 01-08-2016 Interrogation eval remote 90 d 1/2/trimmer operator ld dfb John Hayden MD Start: 01-08-2016 End: 08-02-2016 Pacer Clinic John Hayden MD Start: 10-23-2015 End: 10-31-2015 Follow Up Appt 6 months John Hayden MD Start: 10-23-2015 End: 10-31-2015 PFM John Hayden MD Start: 10-09-2015 End: 10-31-2015 Follow Up Appt 3 months John Hayden MD Start: 10-09-2015 End: 10-09-2015 Interrogation eval remote 90 d 1/2/trimmer operator ld dfb John Hayden MD Start: 10-09-2015 End: 10-31-2015 Pacer Clinic John Hayden MD Start: 09-20-2015 End: 09-25-2015 *Hepatic Function Panel John Hayden MD Start: 09-20-2015 End: 09-25-2015 Lipid 1996 panel - Serum or Plasma John Hayden MD Start: 07-05-2015 End: 03-05-2016 Follow Up Appt 3 months John Hayden MD Start: 07-05-2015 End: 07-05-2015 Interrogation eval remote 90 d 1/2/trimmer operator ld dfb John Hayden MD Start: 07-05-2015 [...] Start: 03-13-2015 End: 04-18-2015 Chest x-ray John Hayedn MD Start: 03-13-2015 End: 04-18-2015 Ecg routine [...] eval implantable in prsn dual lead dfb oJhn Hayden MD Start: 08-02-2013 End: 08-04-2013 *Hepatic [...] Work Phone: Start: 12-02-2012 End: 02-24-2013 Cardioversion Adrinane Plummer PA-C Work Phone: Start: 12-02-2012 End: [...] Author Start: 04-18-2020 Influenza vaccination INFLUENZA (#1) [facility] Start: 02-21-2020 Colonoscopy COLONOSCOPY [facility] Start: 02-04-2018 End: 02-04-2018 Appointment Appointment [facility] Work Phone: Start: 08-04-2017 End: 08-04-2017 Appointment Appointment [facility] Work Phone: Start: 06-30-2017 End: 06-30-2017 Cardiac Referral Cardiac Referral Bubba Valenzuela, [facility] [place], [address] [place] [address], [id number] [facility] Work Phone: Start: 06-04-2017 End: 06-04-2017 Echocardiography Echocardiogram (complete) [facility] Work Phone: Start: 06-04-2017 End: 06-04-2017 Follow Up Appt 6 months Follow Up Appt 6 months [facility] Work Phone: Start: 06-04-2017 End: 06-04-2017 PFM PFM [facility] Work Phone: Start: 04-29-2017 End: 04-30-2017 Follow Up Appt 3 months Follow Up Appt 3 months [facility] Phone: Start: 04-29-2017 End: 04-30-2017 [facility] Clinic [facility] Work Phone: Start: 01-16-2017 End: 01-26-2017 Follow Up Appt 3 months Follow Up Appt 3 months [facility] Work Phone: Start: 01-16-2017 End: 01-26-2017 [facility] Clinic [facility] Work Phone: Start: 12-18-2016 End: 12-18-2016 INR Coag RelTime (PPP) *PT/INR - Standing Order [facility] Work Phone: Start: 10-07-2016 End: 04-09-2016 *Hepatic Function Panel *Hepatic Function Panel [facility] Work Phone: Start: 10-07-2016 End: 10-07-2016 Follow Up Appt 3 months Follow Up Appt 3 months [facility] Work Phone: Start: 10-07-2016 End: 04-09-2016 Lipid panel [AGGREGATE] *Lipid Profile CC PCP [facility] Work Phone: Start: 10-07-2016 End: 10-07-2016 [facility] Work Phone: Start: 09-22-2016 Hepatitis B surface antibody level LDL CHOLESTEROL [facility] Start: 09-04-2016 Hepatitis B screening URINE ALBUMIN:CREATININE RATIO [facility] Start: 07-08-2016 End: 07-10-2016 Follow Up Appt 3 months Follow Up Appt 3 months [facility] Work Phone: Start: 07-08-2016 End: 07-10-2016 [facility] Work Phone: Start: 06-17-2016 End: 08-02-2016 Follow Up Appt 6 months Follow Up Appt 6 months [facility] Work Phone: Start: 06-17-2016 End: 08-02-2016 PFM PFM [facility] Work Phone: Start: 06-11-2016 HbA1c (Bld) [Mass fraction] HBA1C [facility] Start: 04-08-2016 End: 08-02-2016 Follow Up Appt 3 months Follow Up Appt 3 months [facility] Work Phone: Start: 04-08-2016 End: 08-02-2016 [facility] Work Phone: Start: 03-25-2016 End: 04-09-2016 *Hepatic Function Panel *Hepatic Function Panel [facility] Work Phone: Start: 03-25-2016 End: 04-09-2016 Lipid panel [AGGREGATE] *Lipid Profile CC PCP [facility] Work Phone: Start: 03-18-2016 Hepatitis C antibody, confirmatory test DILATED RETINAL EXAM [facility] Start: 01-08-2016 End: 08-02-2016 Follow Up Appt 3 months Follow Up Appt 3 months [facility] Work Phone: Start: 01-08-2016 End: 08-02-2016 [facility] Work Phone: Start: 11-08-2015 Urine microalbumin profile DTAP,TDAP,TD (2 - Tdap) [facility] Start: 10-23-2015 End: 10-31-2015 Follow Up Appt 6 months Follow Up Appt 6 months [facility] Work Phone: Start: 10-23-2015 End: 10-31-2015 PFM PFM [facility] Work Phone: Start: 10-09-2015 End: 10-31-2015 Follow Up Appt 3 months Follow Up Appt 3 months [facility] Work Phone: Start: 10-09-2015 End: 10-31-2015 [facility] Work Phone: Start: 09-20-2015 End: 09-25-2015 *Hepatic Function Panel *Hepatic Function Panel [facility] Work Phone: Start: 09-20-2015 End: 09-25-2015 Lipid panel [AGGREGATE] *Lipid Profile CC PCP [facility] Work Phone: Start: 07-05-2015 End: 03-05-2016 Follow Up Appt 3 months Follow Up Appt 3 months [facility] Work Phone: Start: 07-05-2015 End: 03-05-2016 [facility] Work Phone: Start: 04-25-2015 End: 04-25-2015 CBC W Auto Differential panel - Blood *CBC without Diff [facility] Work Phone: Start: 04-25-2015 End: 04-25-2015 INR Coag RelTime (PPP) *PT/INR [facility] Work Phone: Start: 04-10-2015 End: 04-10-2015 *CBC with Differential *CBC with Differential [facility] Work Phone: Start: 04-10-2015 End: 04-10-2015 INR Coag RelTime (PPP) *PT/INR [facility] Work Phone: Start: 04-03-2015 End: 03-05-2016 Follow Up Appt 3 months Follow Up Appt 3 months [facility] Work Phone: Start: 04-03-2015 End: 03-05-2016 Pacer Clinic Pacer Clinic [facility] Work Phone: Start: 03-30-2015 End: 04-18-2015 *UA - Urinalysis w/o Micro *UA - Urinalysis w/o Micro [facility] Work Phone: Start: 03-24-2015 End: 03-24-2015 Ecg routine ecg w/least 12 lds w/i&r EKG (In office) [facility] Work Phone: Start: 03-24-2015 End: [...] Chest x-ray X-Ray, Chest, PA & Lateral [facility] Work Phone: Start: 03-13-2015 End: [...] 2 months Follow Up Appt 2 months [facility] Work Phone: Start: 12-21-2014 End: 12-21-2014 Follow Up Appt 3 months Follow Up Appt 3 months [facility] Work Phone: Start: 12-21-2014 End: 04-18-2015 Pacer Clinic Pacer Clinic [facility] Work Phone: Start: 12-21-2014 End: 12-21-2014 PFM PFM [facility] Work Phone: Start: 10-17-2014 End: 11-23-2014 *Hepatic Function Panel *Hepatic Function Panel [facility] Work Phone: Start: 10-17-2014 End: 11-23-2014 Lipid panel [AGGREGATE] *Lipid Profile CC PCP [facility] Work Phone: Start: 08-22-2014 End: 12-21-2014 Follow Up Appt 3 months Follow Up Appt 3 months [facility] Work Phone: Start: 08-22-2014 End: 04-18-2015 Pacer Clinic Pacer Clinic [facility] Work Phone: Start: 05-09-2014 End: 05-09-2014 Device Interrogation Device Interrogation [facility] Work Phone: Start: 05-09-2014 End: 04-18-2015 Follow Up Appt 3 months Follow Up Appt 3 months [facility] Work Phone: Start: 05-09-2014 End: 05-09-2014 Follow Up Appt 6 months Follow Up Appt 6 months [facility] Work Phone: Start: 05-09-2014 End: 04-18-2015 Pacer Clinic Pacer Clinic [facility] Work Phone: Start: 05-09-2014 End: 05-09-2014 PFM PFM [facility] Work Phone: Start: 04-12-2014 End: 04-11-2014 *Hepatic Function Panel *Hepatic Function Panel [facility] Work Phone: Start: 04-12-2014 End: 04-11-2014 Lipid panel [AGGREGATE] *Lipid Profile CC PCP [facility] Work Phone: Start: 02-03-2014 End: 05-09-2014 Follow Up Appt 3 months Follow Up Appt 3 months [facility] Work Phone: Start: 02-03-2014 End: 05-09-2014 [facility]er [facility] Work Phone: Start: 10-29-2013 End: 04-13-2014 Device Interrogation Device Interrogation [facility] Work Phone: Start: 10-29-2013 End: 04-13-2014 Follow Up Appt 3 months Follow Up Appt 3 months [facility] Work Phone: Start: 10-29-2013 End: 10-29-2013 Follow Up Appt 6 months Follow Up Appt 6 months [facility] Work Phone: Start: 10-29-2013 End: 04-13-2014 [facility] Work Phone: Start: 10-29-2013 End: 10-29-2013 PFM PFM [facility] Work Phone: Start: 08-02-2013 End: 08-04-2013 *Hepatic Function Panel *Hepatic Function Panel [facility] Work Phone: Start: 08-02-2013 End: 08-02-2013 Device Interrogation Device Interrogation [facility] Work Phone: Start: 08-02-2013 End: 08-02-2013 Follow Up Appt 3 months Follow Up Appt 3 months [facility] Work Phone: Start: 08-02-2013 End: 08-04-2013 Lipid panel [AGGREGATE] *Lipid Profile CC PCP [facility] Work Phone: Start: 08-02-2013 End: 08-02-2013 Pacer Clinic Pacer Clinic [facility] Work Phone: Start: 08-02-2013 End: 08-02-2013 PFM PFM [facility] Work Phone: Start: 06-09-2013 End: 08-02-2013 *Hepatic Function Panel *Hepatic Function Panel [facility] Work Phone: Start: 06-09-2013 End: 08-02-2013 Lipid panel [AGGREGATE] *Lipid Profile CC PCP [facility] Work Phone: Start: 04-26-2013 End: 04-28-2013 Ecg routine ecg w/least 12 lds w/i&r EKG (In office) [facility] Work Phone: Start: 04-26-2013 End: 04-28-2013 Echocardiography Echocardiogram (complete) [facility] Work Phone: Start: 04-26-2013 End: 04-28-2013 Follow Up Appt 3 months Follow Up Appt 3 months [facility] Work Phone: Start: 04-26-2013 End: 04-28-2013 PFM [facility]FM [facility] Work Phone: Start: 03-03-2013 End: 04-28-2013 Follow Up Appt 3 months Follow Up Appt 3 months [facility] Work Phone: Start: 03-03-2013 End: 04-28-2013 Pac[facility] Clinic [facility] Work Phone: Start: 02-24-2013 End: 02-24-2013 Ecg routine ecg w/least 12 lds w/i&r EKG (In office) [facility] Work Phone: Start: 02-24-2013 End: 02-24-2013 Follow Up Appt Other Follow Up Appt Other [facility] Work Phone: Start: 02-24-2013 End: 02-24-2013 PFM PFM [facility] Work Phone: Start: 02-23-2013 End: 02-24-2013 INR Coag RelTime (PPP) *PT/INR - Standing Order [facility] Work Phone: Start: 12-02-2012 End: 02-24-2013 *BMP *BMP [facility] Work Phone: Start: 12-02-2012 End: 12-03-2012 Cardioversion Cardioversion [facility] Work Phone: Start: 12-02-2012 End: [...] w/least 12 lds w/i&r EKG (In office) [facility] Work Phone: Start: 11-26-2012 End: 12-02-2012 Follow Up Appt 3 months Follow Up Appt 3 months [facility] Work Phone: Start: 11-26-2012 End: 12-02-2012 Follow Up Appt Other Follow Up Appt Other [facility] Work Phone: Start: 11-26-2012 End: 12-02-2012 Pacer Clinic Pacer Clinic [facility] Work Phone: Start: 11-26-2012 End: 11-26-2012 PFM PFM [facility] Work Phone: Start: 08-07-2012 End: 08-07-2012 Device Interrogation Device Interrogation [facility] Work Phone: Start: 08-07-2012 End: 08-07-2012 Follow Up Appt 3 months Follow Up Appt 3 months [facility] Work Phone: Start: 06-13-2012 [object Object] DIABETIC FOOT EXAM [facility] Start: 05-28-2012 End: 11-26-2012 *BMP *BMP [facility] Work Phone: Start: 05-07-2012 End: 05-14-2012 *BMP *BMP [facility] Work Phone: Start: 05-07-2012 End: 05-07-2012 Device Interrogation Device Interrogation [facility] Work Phone: Start: 05-07-2012 End: 05-07-2012 Ecg routine ecg w/least 12 lds w/i&r EKG (In office) [facility] Work Phone: Start: 05-07-2012 End: 05-07-2012 Echocardiography Echocardiogram (complete) [facility] Work Phone: Start: 05-07-2012 End: 05-07-2012 Follow Up Appt 3 months Follow Up Appt 3 months [facility] Work Phone: Start: 03-09-2012 End: 03-10-2012 24 hour holter monitor 24 hour holter monitor [facility] Work Phone: Start: 03-09-2012 End: 03-09-2012 Follow Up Appt 3 months Follow Up Appt 3 months [facility] Work Phone: Start: 12-30-2011 End: 05-07-2012 Device Interrogation Device Interrogation [facility] Work Phone: Start: 12-30-2011 End: 12-30-2011 Echocardiography Echocardiogram (limited) [facility] Work Phone: Start: 12-30-2011 End: 12-30-2011 Follow Up Appt 3 months Follow Up Appt 3 months [facility] Work Phone: Start: 10-13-2011 SHINGRIX VACCINE (2 of 3) SHINGRIX VACCINE (2 of 3) [facility] Start: 2005 ADVANCE DIRECTIVE DISCUSSION ADVANCE DIRECTIVE DISCUSSION [facility] Start: 1958 ANNUAL PCP TEAM CHRONIC DISEASE VISIT ANNUAL PCP TEAM CHRONIC DISEASE VISIT [facility] Start: 1958 BP CONTROLLED (<130/80) BP CONTROLLED (<130/80) [facility] Patient Education HYPERLIPIDEMIA , HYPERLIPIDEMIA, HYPERTENSION [facility] Work Phone: Immunizations Immunization Date Immunization Notes Care Provider Yrn abdalla 06-23-2008 influenza virus vacc ine, unspecified formulation NA [facility] 07-08-2006 pneumococcal polysac charide vaccine, [address] [facility] 06-18-2006 influenza virus vacc ine, unspecified formulation NA [facility] 11-07-2005 diphtheria and tetan us toxoids, adsorbed for pediatric use NA [facility] Payers Date Payer Category Payer Medicare [employer] MEDICARE [employer] MEDICARE PPO [id number] 2009-2015 PPO [id number] 2005 Medicare MEDICARE MEDICAR E A AND B [id number] 2005-Present [place] Medicare [id number] 1940 Unknown [id number] Medicare [id number] Medicare [id number] Social History Date Type Detail Facility Start: 08-01-2010 Tobacco smoking stat us NJIS Never smoker [facility] Start: 08-01-2010 Alcohol intake Current drinke r of alcohol (finding) [facility] Sex Assigned At Not on file [facility] Summary Purpose Family History No Family History Records FoundNo Family History Records Found Advance Directives No Advanced Directives Records FoundDocuments on File Type Date Recorded 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 [employer] [facility]. provides no warranty or guarantee of the accuracy or completeness of information in this document.
[2023-09-15 19:21] LABS: Anion Gap 9 (5-15); BUN 18 mg/dL (7-18); BUN/Creat Ratio 21.7 RATIO (10-20); Calcium,Total 8.9 mg/dL (8.5-10.1); Chloride 96 mmol/L (98-107); Creatinine, Serum 0.83 mg/dL (0.55-1.02); EST Glomerular Filtration Rate 70 mL/min (>60); Est Glom Filt Rate - Afr Amer 85 mL/min (>60); Estimated Creatinine Clearance 41.33 ml/min; Glucose 149 mg/dL (74-106); Potassium 4.3 mmol/L (3.5-5.1); Sodium Level 128 mmol/L (136-145)
[2023-09-15] MEDS: Ipratropium/Albuterol Sulfate 3 ML AMPUL.NEB INHALATION (19:28)
[2023-09-15 20:32] LABS: Urea Nitrogen, Urine 434 mg/dL (NO RANGE EST.); Urine Chloride 15 mmol/L (Not Establ.); Urine Sodium 22 mmol/L (Not Establ.)
[2023-09-15 20:43] LABS: Osmolality, Serum 268 mOsm/KG (280-301)
[2023-09-15 20:44] LABS: Osmolality, Urine 258 mOsm/KG
[2023-09-15] MEDS: 0.9% Saline Lock 10 ML Syringe IV (21:03)
[2023-09-15] MEDS: Pravastatin 20 MG Tablet PO (21:04)
[2023-09-15] MEDS: traMADol 50 MG Tablet PO (21:04)
[2023-09-15] MEDS: Primidone 50 MG Tablet PO (21:04)
[2023-09-15] MEDS: guaiFENesin 1,200 MG Tablet 1200 MG PO (21:04)
[2023-09-15 22:05] LABS: Anion Gap 7 (5-15); BUN 17 mg/dL (7-18); BUN/Creat Ratio 24.7 RATIO (10-20); Calcium,Total 8.7 mg/dL (8.5-10.1); Chloride 96 mmol/L (98-107); Creatinine, Serum 0.69 mg/dL (0.55-1.02); EST Glomerular Filtration Rate 87 mL/min (>60); Est Glom Filt Rate - Afr Amer 105 mL/min (>60); Estimated Creatinine Clearance 42.88 ml/min; Glucose 118 mg/dL (74-106); Potassium 4.2 mmol/L (3.5-5.1); Sodium Level 127 mmol/L (136-145)
[2023-09-15] MEDS: Menthol/Lanolin/Calamine/Znox 113 GM Tube 1 APPLIC TOPICAL (22:05)
[2023-09-15] MEDS: SACUBITRIL/VALSARTAN 97-103 MG TABLET 1 EACH PO (22:05)
[2023-09-15] MEDS: Carvedilol 25 MG Tablet PO (22:05)
[2023-09-16] VITALS (11 sets, daily range): BP systolic 106–128; BP diastolic 48–68; PULSE 70–82; RESP 16–23; TEMP 36.6–37; O2SAT 95–98; BMI 20.8
[2023-09-16 02:04] LABS: Anion Gap 5 (5-15); BUN 16 mg/dL (7-18); BUN/Creat Ratio 22.6 RATIO (10-20); Calcium,Total 8.6 mg/dL (8.5-10.1); Chloride 98 mmol/L (98-107); Creatinine, Serum 0.71 mg/dL (0.55-1.02); EST Glomerular Filtration Rate 84 mL/min (>60); Est Glom Filt Rate - Afr Amer 102 mL/min (>60); Estimated Creatinine Clearance 42.88 ml/min; Glucose 149 mg/dL (74-106); Potassium 4.2 mmol/L (3.5-5.1); Sodium Level 129 mmol/L (136-145)
[2023-09-16 07:31] LABS: Absolute Lymphocyte Count 0.58 X10^3/uL (0.83-4.51); Absolute Neutrophil Count 3.5 X10^3/uL (2.0-7.7); Basophil# 0.01 X10^3/uL; Basophil% 0.2 % (0-1); Eosinophil# 0.16 X10^3/uL; Eosinophils% 3.3 % (0-5); Hematocrit 31.9 % (37-47); Hemoglobin 10.6 g/dL (12.0-15.0); Lymphocyte # 0.58 X10^3/ul (0.83-4.51); Mean Corp Hgb Conc 33.2 g/dL (32-36); Mean Corpuscular Hgb 31.6 pg (27.0-32.0); Mean Corpuscular Volume 95.2 fL (81-99); Mean Platelet Vol. 10.5 fl (6.2-12.0); Monocyte# 0.53 X10^3/uL; Monocyte% 10.9 % (0-10); NRBC Flagged by Analyzer 0 % (0-5); Neutrophil # 3.54 X10^3/uL (2.7-7.7); POSITIVE DIFFERENTIAL YES; Platelet Count 118 K/mm3 (150-450); RBC Distribution Width CV 13.5 % (11.6-14.6); RBC Distribution Width SD 47.5 fl (35.1-43.9); Red Blood Count 3.35 M/mm3 (4.2-5.4); White Blood Count 4.9 K/mm3 (4.4-11.0)
[2023-09-16] MEDS: Ipratropium/Albuterol Sulfate 3 ML AMPUL.NEB INHALATION ×3 (07:33→19:30)
[2023-09-16 07:59] LABS: International Normalized Ratio 2.3; Prothrombin Time (Protime)PT. 25.8 SECONDS (11.7-14.9)
[2023-09-16 08:08] LABS: ALB/GLOB Ratio 1.3 RATIO (0.9-2.4); AST(SGOT) 27 U/L (15-37); Alanine Aminotransfer ALT/SGPT 35 U/L (13-56); Albumin, Serum 2.9 g/dL (3.2-5.0); Alkaline Phosphatase 119 U/L (45-117); Anion Gap 5 (5-15); BUN 14 mg/dL (7-18); BUN/Creat Ratio 21.1 RATIO (10-20); Calcium,Total 8.6 mg/dL (8.5-10.1); Chloride 99 mmol/L (98-107); Creatinine, Serum 0.66 mg/dL (0.55-1.02); EST Glomerular Filtration Rate 91 mL/min (>60); Est Glom Filt Rate - Afr Amer 110 mL/min (>60); Estimated Creatinine Clearance 42.88 ml/min; Globulin 2.3 g/dL (2.2-4.2); Glucose 149 mg/dL (74-106); Potassium 3.9 mmol/L (3.5-5.1); Protein, Total 5.2 g/dL (6.4-8.2); Sodium Level 130 mmol/L (136-145); Thyroid Stim Hormone (TSH) 3.41 uIU/mL (0.358-3.74)
--- NOTE | 2023-09-16 08:16 | PN.HOSP_ITS ---
Subjective Subjective Coughing. Feeling well. Objective Data Objective Data Vital Signs: Vital Signs Temp Pulse Resp BP Pulse Ox O2 Del Method 36.8 C 74 23 H 116/54 L 98 Room Air 09/16/23 06:01 09/16/23 07:33 09/16/23 07:33 09/16/23 06:01 09/16/23 06:01 09/16/23 06:06 Oxygen Delivery Method Room Air Weight: 51.4 kg Body Mass Index (BMI) 20.8 Intake & Output: Intake and Output for Last 24 Hours 09/14/23 09/15/23 09/16/23 23:59 23:59 23:59 Intake Total 600 / 600 200 / 200 Balance 600 / 600 200 / 200 Lab / Micro Data 09/16/23 06:48 09/16/23 06:48 Labs: Laboratory Results - last 24 hr 09/15/23 12:35: Troponin I High Sens 22 09/15/23 12:40: WBC 6.7, RBC 3.59 L, Hgb 11.3 L, Hct 33.4 L, MCV 93.0, MCH 31.5, MCHC 33.8, RDW Std Deviation 45.2 H, RDW Coeff of Ana Maria 13.2, Plt Count 136 L, MPV 10.5, Immature Gran % (Auto) 0.600, Neut % (Auto) 84.1 H, Lymph % (Auto) 6.3 L, [place] % (Auto) 8.0, Eos % (Auto) 0.8, Baso % (Auto) 0.2, Absolute Neuts (auto) 5.6, Absolute Lymphs (auto) 0.42 L, Nucleated RBC % 0, Sodium 126 L, Potassium 4 .4, Chloride 94 L, Carbon Dioxide 26.0, Anion Gap 6, BUN 21 H, Creatinine 0.91, Est GFR (MDRD) Af Amer 76, Est GFR (MDRD) Non-Af 63, BUN/Creatinine Ratio 23.0 H , Glucose 180 H, Calcium 8.7 09/15/23 13:53: PT 27.0 H, INR 2.5, APTT 42.8 H, D-Dimer Quant (PE/DVT) < 0.27 L 09/15/23 18:30: Sodium 128 L, Potassium 4.3, Chloride 96 L, Carbon Dioxide 23.0, Anion Gap 9, BUN 18, Creatinine 0.83, Estim Creat Clear Calc 41.33, Est GFR (MDRD) Af Amer 85, Est GFR (MDRD) Non-Af 70, BUN/Creatinine Ratio 21.7 H, Glucose 149 H, Serum Osmolality 268 L, Calcium 8.9 09/15/23 20:00: Urine Osmolality 258, Ur Random Sodium 22, Urine Creatinine 44.00, Urine Potassium 15.0, Urine Chloride 15, Urine Urea Nitrogen 434 09/15/23 21:18: Sodium 127 L, Potassium 4.2, Chloride 96 L, Carbon Dioxide 24.0, Anion Gap 7, BUN 17, Creatinine 0.69, Estim Creat Clear Calc 42.88, Est GFR (MDRD) Af Amer 105, Est GFR (MDRD) Non-Af 87, BUN/Creatinine Ratio 24.7 H, Glucose 118 H, Calcium 8.7 09/16/23 01:35: Sodium 129 L, Potassium 4.2, Chloride 98, Carbon Dioxide 26.0, Anion Gap 5, BUN 16, Creatinine 0.71, Estim Creat Clear Calc 42.88, Est GFR (MDRD) Af Amer 102, Est GFR (MDRD) Non-Af 84, BUN/Creatinine Ratio 22.6 H, Glucose 149 H, Calcium 8.6 09/16/23 06:48: WBC 4.9, RBC 3.35 L, Hgb 10.6 L, Hct 31.9 L, MCV 95.2, MCH 31.6, MCHC 33.2, RDW Std Deviation 47.5 H, RDW Coeff of Ana Maria 13.5, Plt Count 118 L, MPV 10.5, Immature Gran % (Auto) 0.600, Neut % (Auto) 73.0 H, Lymph % (Auto) 12.0 L, [place] % (Auto) 10.9 H, Eos % (Auto) 3.3, Baso % (Auto) 0.2, Absolute Neuts (auto) 3.5, Absolute Lymphs (auto) 0.58 L, Nucleated RBC % 0, PT 25.8 H, INR 2.3, Sodium 130 L, Potassium 3.9, Chloride 99, Carbon Dioxide 26.0, Anion Gap 5, BUN 14, Creatinine 0.66, Estim Creat Clear Calc 42.88, Est GFR (MDRD) Af Amer 110, Est GFR (MDRD) Non-Af 91, BUN/Creatinine Ratio 21.1 H, Glucose 149 H, Calcium 8.6, Total Bilirubin 0.50, AST 27, ALT 35, Alkaline Phosphatase 119 H, Total Protein 5.2 L, Albumin 2.9 L, Globulin 2.3, Albumin/Globulin Ratio 1.3, TSH 3.41 Micro: Microbiology 09/15/23 12:35 Mucosa - Nose SARS-CoV-2, Influenza & RSV (PCR) - Final RSV Radiography Diagnostic Testing: Radiology Impression Chest X-Ray 09/15/23 13:02 IMPRESSION: Stable chest with no acute or active cardiopulmonary disease. Electronically Signed: Franck Gupta MD at 13:29 EST , Physical Exam Const alert and no apparent distress Resp normal respiratory effort, no retractions, no use of accessory muscles and clear to auscultation bilaterally Cardio regular rate, regular rhythm, S1 normal heart sound and S2 normal heart sound GI normal to inspection, nondistended, normoactive bowel sounds, soft to palpation and non-tender Neuro Sensorium / Orientation: awake and alert Assessment & Plan Assessment/Plan (1) Respiratory syncytial virus (RSV): (2) Cardiac pacemaker: PLAN: Plan RSV, acute * supportive care. Debility * 2/2 RSV * PT OT Hyponatremia * monitor. etiology unclear * TSH WNL * check free cortisol. Chronic conditions: * Chronic heart failure with reduced ejection fraction/history of permanent pacemaker-Daily weights, I's and O's-Continue home meds but hold Lasix while trending BMP, patient does not appear volume overloaded, if anything somewhat volume depleted w/ poor po and diarrhea * Hypothyroidism-Continue home medications * History of A-fib/flutter/mechanical mitral valve -INR 2.5-Daily INRs-Continue home Coumadin DVT ppx: not indicated as pt already on anticoagulation. Charges/Coding Visit Charges Inpatient E&M: 18083 Subs Hosp L2
[2023-09-16] MEDS: traMADol 50 MG Tablet PO ×2 (09:13→22:00)
[2023-09-16] MEDS: Thyroid 60 MG Tablet 30 MG PO (09:14)
[2023-09-16] MEDS: Carvedilol 25 MG Tablet PO ×2 (09:14→21:59)
[2023-09-16] MEDS: guaiFENesin 1,200 MG Tablet 1200 MG PO ×2 (09:14→22:00)
[2023-09-16] MEDS: SACUBITRIL/VALSARTAN 97-103 MG TABLET 1 EACH PO ×2 (09:14→21:59)
[2023-09-16] MEDS: Menthol/Lanolin/Calamine/Znox 113 GM Tube 1 APPLIC TOPICAL ×2 (09:14→21:59)
[2023-09-16] MEDS: Primidone 50 MG Tablet PO ×2 (09:15→21:59)
[2023-09-16] MEDS: Acetaminophen 325 MG Tablet 650 MG PO (14:47)
--- NOTE | 2023-09-16 15:26 | CASEMGMT ---
JAYLYN CRUZ to pt room at this time to discuss possible DC planning. Pt states that her goal is to get strong enough to DC home alone. Pt states that she cannot get into her home at this time without help. Pt states that she would refuse to go to a SNF but states that she would be willing to go to the RU here. ISAIAH Navarro printed a local list of in-network Post-actute care networks and this JAYLYN CRUZ gave it to the pt. Pt states that she declines all facilities except for the RU here at [facility]. ISAIAH Nicole updated and states she made the referral at this time.
--- NOTE | 2023-09-16 15:43 | CASEMGMT ---
Social Work Referral made to [facility] inpt rehab, awaiting response. YUIR Villagran
--- NOTE | 2023-09-16 16:01 | CHAPLAIN ---
Type of Pastoral Visit _x__ Initial Visit ___ Follow-up Visit ___ On-call Visit ___ General Patient Visit ___ Spiritual Assessment ___ Family Conference ___ Bereavement ___ Rapid Response ___ Code Blue ___ Other (describe below) Pastoral Care Referral From _x__ Patient ___ Family ___ Nurse ___ Physician ___ Sprinkler Inspector ___ Ear Nose Throat Physician ___ Other (describe below) Sacrament/Intervention _x__ Active listening ___ Anointing ___ Uatsdin ___ Bereavement ___ Communion _x__ Marielle exploration ___ _x__ Life review _x__ Prayer ___ Reconciliation ___ Sacrament of Sick _x__ Supportive presence ___ Wedding ___ Other (describe below) Pastoral Comments patient admits at beginning of the visit that I have a decision to make ; pt is asked about the decision and 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
--- NOTE | 2023-09-16 16:01 | CASEMGMT ---
Spoke with patient on phone d/t covid isolation to complete AG form. AG form explained to patient who acknowledged and voiced understanding. Original form placed in pt?s chart and copy provided to?patient. Cher Guzman, Discharge Planning Asst
[2023-09-16] MEDS: Pravastatin 20 MG Tablet PO (21:59)
[2023-09-16] MEDS: 0.9% Saline Lock 10 ML Syringe IV (21:59)
[2023-09-17 03:36] VITALS: BP 122/59; PULSE 91; RESP 18; TEMP 36.7; O2SAT 96
[2023-09-17] MEDS: Senna/Docusate Sodium 1 Tablet 2 TABLET PO (03:38)
[2023-09-17 06:00] VITALS: BMI 20.7
[2023-09-17] MEDS: Ipratropium/Albuterol Sulfate 3 ML AMPUL.NEB INHALATION ×2 (07:23→12:49)
[2023-09-17 07:24] VITALS: PULSE 75; RESP 18
--- NOTE | 2023-09-17 07:27 | PN.HOSP_ITS ---
Reason for Visit Reason for Visit: Diagnoses Other specified viral diseases (09/15/23) Hypothyroidism, unspecified (09/15/23) Essential (primary) hypertension (09/15/23) Paroxysmal atrial fibrillation (09/15/23) Chronic systolic (congestive) heart failure (09/15/23) Weakness (09/15/23) Presence of cardiac pacemaker (09/15/23) Presence of prosthetic heart valve (09/15/23) Other specified postprocedural states (09/15/23) Subjective Subjective Patient wishing to go to acute rehab. Feels weak. Objective Data Objective Data Vital Signs: Vital Signs Temp Pulse Resp BP Pulse Ox O2 Del Method 36.7 C 75 18 122/59 H 96 Room Air 09/17/23 03:36 09/17/23 07:24 09/17/23 07:24 09/17/23 03:36 09/17/23 03:36 09/17/23 03:40 Oxygen Delivery Method Room Air Weight: 51.1 kg Body Mass Index (BMI) 20.7 Intake & Output: Intake and Output for Last 24 Hours 09/15/23 09/16/23 09/17/23 23:59 23:59 23:59 Intake Total 600 / 600 500 / 500 200 / 200 Balance 600 / 600 500 / 500 200 / 200 Lab / Micro Data 09/16/23 06:48 09/16/23 06:48 Labs: Laboratory Results - last 24 hr 09/16/23 06:48: WBC 4.9, RBC 3.35 L, Hgb 10.6 L, Hct 31.9 L, MCV 95.2, MCH 31.6, MCHC 33.2, RDW Std Deviation 47.5 H, RDW Coeff of Ana Maria 13.5, Plt Count 118 L, MPV 10.5, Immature Gran % (Auto) 0.600, Neut % (Auto) 73.0 H, Lymph % (Auto) 12.0 L, [place] % (Auto) 10.9 H, Eos % (Auto) 3.3, Baso % (Auto) 0.2, Absolute Neuts (auto) 3.5, Absolute Lymphs (auto) 0.58 L, Nucleated RBC % 0, PT 25.8 H, INR 2.3, Sodium 130 L, Potassium 3.9, Chloride 99, Carbon Dioxide 26.0, Anion Gap 5, BUN 14, Creatinine 0.66, Estim Creat Clear Calc 42.88, Est GFR (MDRD) Af Amer 110, Est GFR (MDRD) Non-Af 91, BUN/Creatinine Ratio 21.1 H, Glucose 149 H, Calcium 8.6, Total Bilirubin 0.50, AST 27, ALT 35, Alkaline Phosphatase 119 H, Total Protein 5.2 L, Albumin 2.9 L, Globulin 2.3, Albumin/Globulin Ratio 1.3, TSH 3.41 Micro: Microbiology 09/15/23 12:35 Mucosa - Nose SARS-CoV-2, Influenza & RSV (PCR) - Final RSV Physical Exam Const alert and no apparent distress HEENT head/scalp atraumatic Neuro Sensorium / Orientation: awake and alert Assessment & Plan Assessment/Plan (1) Respiratory syncytial virus (RSV): PLAN: Plan RSV, acute * supportive care. Debility * 2/2 RSV * PT OT * Patient wanting to go to rehab. I had a discussion with the patient that the acuity of her illness may not rise to warranting going to acute rehab but will defer that to the insurance company to cover it. Would be concerned that she may be declined to go to acute rehab. A penitentiary facility may be a more reasonable option. She states that if possible at that she would prefer to go to [facility]. Hyponatremia * monitor. etiology unclear * TSH WNL * check free cortisol. Chronic conditions: * Chronic heart failure with reduced ejection fraction/history of permanent pacemaker-Daily weights, I's and O's-Continue home meds but hold Lasix while trending BMP, patient does not appear volume overloaded, if anything somewhat volume depleted w/ poor po and diarrhea * Hypothyroidism-Continue home medications * History of A-fib/flutter/mechanical mitral valve -INR 2.5-Daily INRs-Continue home Coumadin DVT ppx: not indicated as pt already on anticoagulation. Charges/Coding Visit Charges Inpatient E&M: 65090 [facility] Hosp L1
[2023-09-17 08:12] LABS: International Normalized Ratio 2.2; Prothrombin Time (Protime)PT. 24.8 SECONDS (11.7-14.9)
[2023-09-17] MEDS: Primidone 50 MG Tablet PO ×2 (08:49→21:22)
[2023-09-17] MEDS: SACUBITRIL/VALSARTAN 97-103 MG TABLET 1 EACH PO ×2 (08:49→21:22)
[2023-09-17] MEDS: Carvedilol 25 MG Tablet PO ×2 (08:49→21:22)
[2023-09-17] MEDS: guaiFENesin 1,200 MG Tablet 1200 MG PO ×2 (08:50→21:22)
[2023-09-17] MEDS: Menthol/Lanolin/Calamine/Znox 113 GM Tube 1 APPLIC TOPICAL ×2 (08:52→21:23)
[2023-09-17 09:40] VITALS: BP 110/70; PULSE 52; RESP 18; TEMP 36.9; O2SAT 99
[2023-09-17] MEDS: traMADol 50 MG Tablet PO ×2 (10:34→21:22)
[2023-09-17] MEDS: Thyroid 60 MG Tablet 30 MG PO (10:35)
[2023-09-17 12:49] VITALS: PULSE 77; RESP 18
--- NOTE | 2023-09-17 15:18 | CASEMGMT ---
Addendum entered by Franci Madsen 09/17/23 16:19: Social Work SW met with pt to get decision on discharge plan. Pt stating she has spoke with her daughter and daughter has questions for SW. Decision has not yet been made. SW informed pt that decision needs to be made tonight and SW will check back with pt in the morning to obtain decision, home with home health or private pay at senior living. VM left with pt dgt to address questions. MICHAEL Degroot Original Note: Social Work SW spoke with Jodie in Inpatient Rehab and pt has been denied admission. SW met with pt and updated on this. SW explained observation status to pt and that pt does not meet Medicare guidelines for Medicare to cover cost of SNF. SW offered option of SNF private pay or home with home health care. Pt uncertain what to do and has placed a call to her daughter to assist with decision making. Pt is waiting on return call from daughter. Pt states if she goes to a SNF she would want to go to [facility]. Phone call to [facility] and they do have beds available. Pricing obtained and provided to pt. A list of SNF and home health providers including quality and resource use data and consistent with the patient?s preferred geographic region, medical needs, and insurance network were provided from the [employer] Guide. SW to follow up once pt talks to her daughter. MICHAEL Degroot
[2023-09-17 15:19] VITALS: BP 112/55; PULSE 80; RESP 18; TEMP 36.4; O2SAT 98
[2023-09-17 20:11] VITALS: BP 127/58; PULSE 84; RESP 16; TEMP 36.6; O2SAT 98
[2023-09-17] MEDS: Pravastatin 20 MG Tablet PO (21:22)
[2023-09-18 02:15] VITALS: BP 122/51; PULSE 81; RESP 18; TEMP 36.6; O2SAT 96
[2023-09-18 06:00] VITALS: BMI 20.9
--- NOTE | 2023-09-18 08:25 | PCM.PN.HOSP ---
Subjective Subjective Going to go home. Coughing. Objective Data Objective Data Vital Signs: Vital Signs Temp Pulse Resp BP Pulse Ox O2 Del Method 36.6 C 81 18 122/51 H 96 Room Air 09/18/23 02:15 09/18/23 02:15 09/18/23 02:15 09/18/23 02:15 09/18/23 02:15 09/18/23 02:15 Oxygen Delivery Method Room Air Weight: 51.6 kg Body Mass Index (BMI) 20.9 Intake & Output: Intake and Output for Last 24 Hours 09/16/23 09/17/23 09/18/23 23:59 23:59 23:59 Intake Total 500 / 500 440 / 440 Balance 500 / 500 440 / 440 Lab / Micro Data 09/16/23 06:48 09/16/23 06:48 Labs: Laboratory Results - last 24 hr 09/17/23 08:57: Cortisol 24.70 H Micro: Microbiology 09/15/23 12:35 Mucosa - Nose SARS-CoV-2, Influenza & RSV (PCR) - Final RSV Physical Exam Const alert and no apparent distress Constitutional Narrative: up in bed. no respiratory distress. Psych affect normal Assessment & Plan Assessment/Plan (1) Respiratory syncytial virus (RSV): PLAN: Plan RSV, acute supportive care. Debility 2/2 RSV PT OT Patient wanting to go to rehab. I had a discussion with the patient that the acuity of her illness may not rise to warranting going to acute rehab but will defer that to the insurance company to cover it. Would be concerned that she may be declined to go to acute rehab. A long term facility may be a more reasonable option. She states that if possible at that she would prefer to go to [facility]. Hyponatremia monitor. etiology unclear TSH WNL check free cortisol. Chronic conditions: Chronic heart failure with reduced ejection fraction/history of permanent pacemaker-Daily weights, I's and O's-Continue home meds but hold Lasix while trending BMP, patient does not appear volume overloaded, if anything somewhat volume depleted w/ poor po and diarrhea Hypothyroidism-Continue home medications History of A-fib/flutter/mechanical mitral valve -INR 2.5-Daily INRs-Continue home Coumadin DVT ppx: not indicated as pt already on anticoagulation. Disposition: pt decided to go home with [facility].
[2023-09-18 09:00] VITALS: PULSE 78; RESP 21
[2023-09-18 09:05] VITALS: O2SAT 97
[2023-09-18] MEDS: Primidone 50 MG Tablet PO (09:17)
[2023-09-18] MEDS: Carvedilol 25 MG Tablet PO (09:17)
[2023-09-18] MEDS: SACUBITRIL/VALSARTAN 97-103 MG TABLET 1 EACH PO (09:17)
[2023-09-18] MEDS: guaiFENesin 1,200 MG Tablet 1200 MG PO (09:17)
[2023-09-18 09:22] LABS: International Normalized Ratio 2.2; Prothrombin Time (Protime)PT. 24.4 SECONDS (11.7-14.9)
[2023-09-18] MEDS: Menthol/Lanolin/Calamine/Znox 113 GM Tube 1 APPLIC TOPICAL (09:26)
--- NOTE | 2023-09-18 09:26 | CASEMGMT ---
Addendum entered by Franci Madsen 09/18/23 10:49: Social Work SW met with pt and dgt was on speaker phone. Pt and dgt opting for pt to return home with home health services. Pt has reviewed list and preferred provider is [facility] home [facility]. RNCM updated and to follow up. MICHAEL Degroot Original Note: Social Work SW received return call from pt's daughter Shilpa. Shilpa concerned that pt returning home alone is an unsafe discharge plan. ISAIAH explained that pt has been denied by Rehab Unit, is not eligible for Medicare coverage at SNF, but can private pay at SNF. If pt does not want to do this, home health services can be set up in the pt's home. Shilpa will call pt and discuss options and call SW back. ISAIAH explained that pt is pt is medically ready for dc today and decision needs to be made. Shilpa expressing understanding. MICHAEL Degroot
[2023-09-18 09:27] VITALS: BP 130/41; PULSE 82; RESP 18; TEMP 36.6; O2SAT 98
[2023-09-18] MEDS: Ipratropium/Albuterol Sulfate 3 ML AMPUL.NEB INHALATION (09:36)
--- NOTE | 2023-09-18 09:47 | DS.PCM_ITS ---
Providers Date of Admission: 09/15/23 Primary Care Physician: Dr. Romie Landeros MD Reason For Visit: SOB, WEAKNESS Diagnosis Discharge Diagnosis (1) Respiratory syncytial virus (RSV): Status: Acute Code(s): B33.8 - Other specified viral diseases Plan RSV, acute * supportive care. Debility * 2/2 RSV * PT OT * Patient wanting to go to rehab. I had a discussion with the patient that the acuity of her illness may not rise to warranting going to acute rehab but will defer that to the insurance company to cover it. Would be concerned that she may be declined to go to acute rehab. A fdc facility may be a more reasonable option. She states that if possible at that she would prefer to go to [facility]. Hyponatremia * monitor. etiology unclear * TSH WNL * check free cortisol. Chronic conditions: * Chronic heart failure with reduced ejection fraction/history of permanent pacemaker-Daily weights, I's and O's-Continue home meds but hold Lasix while trending BMP, patient does not appear volume overloaded, if anything somewhat volume depleted w/ poor po and diarrhea * Hypothyroidism-Continue home medications * History of A-fib/flutter/mechanical mitral valve -INR 2.5-Daily INRs-Continue home Coumadin DVT ppx: not indicated as pt already on anticoagulation. Disposition: pt decided to go home with [facility]. Medications at Discharge Home Medications multivitamin 1 ea PO DAILY supplement 08/01/17 cholecalciferol (vitamin D3) 50 mcg (2,000 unit) capsule 50 mcg PO DAILY 01/24/21 thyroid (pork) 30 mg tablet 30 mg PO DAILY 01/29/21 sacubitril 97 mg-valsartan 103 mg tablet (Entresto) 1 tab PO BID 05/07/21 carvedilol 25 mg tablet (Coreg) 25 mg PO BID #180 tabs 10/22/22 acetaminophen 650 mg tablet,extended release 650 mg PO DAILY PRN pain/fever 04/28/23 furosemide 40 mg tablet 40 mg PO DAILY 08/01/23 pravastatin 20 mg tablet 20 mg PO QHS cholesterol #90 tabs 08/26/23 primidone 50 mg tablet 50 mg PO BID #60 tabs 09/04/23 albuterol sulfate 90 mcg/actuation aerosol inhaler 2 puff inhalation Q4H PRN shortness of breath or wheezing 09/15/23 tramadol 50 mg tablet 50 mg PO Q12H 09/15/23 warfarin 5 mg tablet 7.5 mg PO DAILY 09/15/23 Hospital Course Operations None Procedures None Summary of Care Provided Minutes Spent on Discharge: 35 Hospital Course: Patient was using a walker and his dog got in front of her and caused her back and legs to go out. Patient presented to the hospital she is weak. Patient was diagnosed with RSV. Patient was prior observation status. Patient was to decide on going home with home care versus fdc facility is private pay. Reluctantly, the patient is going to go home with home care. Patient asking how that should she get so weak so quickly. Clear to her that with her baseline poor performance status, little things such as her back going out or getting infection, such as RSV, could set her back to the point where she may not be able to stay at home safely. Advised patient to be engaged in therapy and do exercises even when the therapist or not there to maintain her strength. Seen by speech therapy who is recommending outpatient modified barium swallow. Weight / BMI Weight Weight: 51.6 kg Body Mass Index (BMI) 20.9 ABG / Lab / Microbiology Data 09/16/23 06:48 09/16/23 06:48 Laboratory: Laboratory Results - last 24 hr 09/17/23 08:57: Cortisol 24.70 H 09/18/23 08:10: PT 24.4 H, INR 2.2 Microbiology: Microbiology 09/15/23 12:35 Mucosa - Nose SARS-CoV-2, Influenza & RSV (PCR) - Final RSV D/C Instructions Discharge Diet: No restrictions Meaningful Use Info Meaningful Use Diagnoses (Choose all that apply): None applicable Discharge Plan Admission Admit Date/Time: 09/15/23 16:41 Primary Reason for Your Visit: RSV. debility Attending Provider: Jasbir Garrett Primary Care Provider: Romie Landeros [employer] Providers: Hailey Zhang Instructions Additional Instructions / Restrictions: Please continuing doing exercises even when therapist are not there. He will have home care to assist you with physical, occupational and speech therapy needs. Will be advised also to have a modified barium swallow, which is an x- ray test to evaluate your swallowing. Speech therapy and your primary care provider can facilitate this being ordered. Discharge Orders/Prescriptions Prescriptions: Continued acetaminophen 650 mg tablet extended release 650 mg PO DAILY PRN (Reason: pain/fever) Patient Comments: TAKE 2 TABLETS BY MOUTH THREE TIMES DAILY cholecalciferol (vitamin D3) 50 mcg (2,000 unit) capsule 50 mcg PO DAILY thyroid (pork) 30 mg tablet 30 mg PO DAILY Patient Comments: TAKE 1 TABLET BY MOUTH ONCE DAILY FOR 30 DAYS furosemide 40 mg tablet 40 mg PO DAILY multivitamin 1 EACH tablet 1 ea PO DAILY Entresto 97-103 mg Tablet 1 tab PO BID tramadol 50 mg tablet 50 mg PO Q12H Patient Comments: TAKE 1 TABLET BY MOUTH TWICE DAILY albuterol sulfate 90 mcg/actuation HFA aerosol inhaler 2 puff INHALATION Q4H PRN (Reason: shortness of breath or wheezing) Patient Comments: INHALE 2 PUFFS BY MOUTH EVERY 4 HOURS NEEDED warfarin 5 mg tablet 7.5 mg PO DAILY Protocol: Dose Management Condition: Friday Dose/Route: 7.5 mg Instruction: 1.5 x 5 mg tablets Condition: Friday Dose/Route: 7.5 mg Instruction: 1.5 x 5 mg tablets Condition: Friday Dose/Route: 7.5 mg Instruction: 1.5 x 5 mg tablets Condition: Friday Dose/Route: 7.5 mg Instruction: 1.5 x 5 mg tablets Condition: Dose/Route: 7.5 mg Instruction: 1.5 x 5 mg tablets Condition: Friday Dose/Route: 7.5 mg Instruction: 1.5 x 5 mg tablets Condition: Friday Dose/Route: 7.5 mg Instruction: 1.5 x 5 mg tablets Protocol Text: Adjustment Start Date: Friday09/08/23 INR Value: 2.7 INR Date: 09/08/23 Recheck Date: 09/15/23 Patient Comments: acoustical material worker changed it to 7.5 mg every day. per pt changed about 2-3 weeks ago Rx Instructions: 5 mg orally take one and one half tab (7.5mg) by mouth x7 days a carvedilol [Coreg] 25 mg tablet 25 mg PO BID Qty: 180 3RF Rx Instructions: must administer with a meal/food pravastatin 20 mg tablet 20 mg PO QHS Qty: 90 3RF primidone 50 mg tablet 50 mg PO BID Qty: 60 3RF Referrals / Follow Up: Romie Landeros Chi, MD [Primary Care Provider] - Within 2 Weeks Disposition Disposition (needs filled in before D/C Order can be placed): Home Health Service Charges/Coding Visit Charges Inpatient E&M: 21322 Disch Hosp >30min
[2023-09-18] MEDS: traMADol 50 MG Tablet PO (10:26)
[2023-09-18] MEDS: Thyroid 60 MG Tablet 30 MG PO (10:27)
--- NOTE | 2023-09-18 10:50 | CASEMGMT ---
Addendum entered by Leanna Estrada 09/18/23 12:08: [facility] has accepted pt for HH. Updated dc plan. Pt aware. Original Note: Updated by ISAIAH that pt would like [facility] for therapy. Noted pt sees and will need an appt prior to [facility] seeing pt. TC to 's office, spoke with Jenna, appt made for 1pm. She is aware that the dtr will pick pt up but wants to just pull to main entrance and has a [address]. She states that a volunteer will bring pt to main entrance and that the appt should be completed by 1:45. RN CM into pt room, pt aware of the appt and she states she would like this RN CM to call her dtr. Discussed having SN for her care d/t RSV but pt would need to go through [facility] and [facility] would do the therapy. Pt states she does not feel that she will need a SN. She has a pox, walker at home. She is only interested in the therapy. Pt denies any further needs. TC to pt dtr Shilpa, she is aware of the appt and will be at the main entrance at 1:45. She is aware this may go over a little but pt is the first appt after lunch. She verbalizes understanding. Updated pt nurse of plan for appt as well. DC construction administrative assistant to send referral to [facility] for [facility].
--- NOTE | 2023-09-18 11:05 | CASEMGMT ---
Discharge Planning Referral faxed to [facility]. Cher Guzman, Discharge Planning Asst.
== END 2023-09-18 12:58 | disposition home health service (06) ==
LOC: ED 15:52 → MS3 16:52
PROVIDERS: Admitting Provider Internal Medicine; Emergency Provider Emergency Medicine; PCP Family Medicine Geriatric Medicine
DX: J06.9 Acute upper respiratory infection, unspecified (principal); I11.0 Hypertensive heart disease with heart failure; I50.22 Chronic systolic (congestive) heart failure; I42.0 Dilated cardiomyopathy; I48.0 Paroxysmal atrial fibrillation; E87.1 Hypo-osmolality and hyponatremia; Z86.16 Personal history of COVID-19; E03.9 Hypothyroidism, unspecified; Z79.01 Long term (current) use of anticoagulants; B97.4 Respiratory syncytial virus as the cause of diseases classified elsewhere; E78.00 Pure hypercholesterolemia, unspecified; M79.7 Fibromyalgia; Z95.810 Presence of automatic (implantable) cardiac defibrillator; Z79.899 Other long term (current) drug therapy; Z79.890 Hormone replacement therapy
CPT/HCPCS: 36415; 71045; 80048; 80053; 82436; 82533; 82570; 83930; 83935; 84133; 84300; 84443; 84484; 84540; 85025; 85379; 85610; 85730; 87631; 92526; 92610; 93005; 94640; 94668; 97116; 97162; 97166; 97530; 97535; 99221; 99283; A4216; G0378

== ENCOUNTER 2023-10-07 15:45 | Outpatient (RCR) | payer MEDICARE, OTHER, SELFPAY ==
[2023-09-17 21:20] VITALS: BMI 22.4
[2023-10-07 15:59] LABS: INR Fingerstick 3.4; Prothrombin Time Fingerstick 36.1 SEC (11.7-14.9)
== END 2023-10-16 18:00 | disposition home or self-care (01) ==
LOC: LAB 15:45
PROVIDERS: Family Provider Family Medicine Geriatric Medicine; PCP Family Medicine Geriatric Medicine; Referring Provider Nurse Practitioner Gerontology; Visit Provider Nurse Practitioner Gerontology
DX: I48.0 Paroxysmal atrial fibrillation (principal); Z95.2 Presence of prosthetic heart valve; Z79.01 Long term (current) use of anticoagulants
CPT/HCPCS: 36416; 85610

== ENCOUNTER 2023-11-03 14:17 | Outpatient (RCR) | payer MEDICARE, OTHER, SELFPAY ==
[2023-10-16 21:50] VITALS: BMI 22.4
[2023-11-03 14:26] LABS: INR Fingerstick 3.4; Prothrombin Time Fingerstick 35.9 SEC (11.7-14.9)
== END 2023-11-16 02:02 | disposition home or self-care (01) ==
LOC: MTLAB 14:17
PROVIDERS: Family Provider Family Medicine Geriatric Medicine; PCP Family Medicine Geriatric Medicine; Referring Provider Nurse Practitioner Gerontology; Visit Provider Nurse Practitioner Gerontology
DX: I48.0 Paroxysmal atrial fibrillation (principal); Z79.01 Long term (current) use of anticoagulants
CPT/HCPCS: 36416; 85610

== ENCOUNTER 2023-12-05 13:46 | Outpatient (RCR) | payer MEDICARE, OTHER, SELFPAY ==
[2023-11-16 02:03] VITALS: BMI 22.4
[2023-12-05 14:52] LABS: Absolute Lymphocyte Count 0.62 X10^3/uL (0.83-4.51); Absolute Neutrophil Count 3.9 X10^3/uL (2.0-7.7); Basophil# 0.02 X10^3/uL; Basophil% 0.4 % (0-1); Eosinophil# 0.09 X10^3/uL; Eosinophils% 1.8 % (0-5); Hematocrit 37.4 % (37-47); Lymphocyte # 0.62 X10^3/ul (0.83-4.51); Lymphocyte % 12.2 % (19-41); Mean Corp Hgb Conc 32.1 g/dL (32-36); Mean Corpuscular Hgb 31.6 pg (27.0-32.0); Mean Corpuscular Volume 98.4 fL (81-99); Mean Platelet Vol. 11.3 fl (6.2-12.0); Monocyte# 0.47 X10^3/uL; Monocyte% 9.3 % (0-10); NRBC Flagged by Analyzer 0 % (0-5); Neutrophil # 3.86 X10^3/uL (2.7-7.7); Neutrophil % 76.1 % (47-70); Platelet Count 143 K/mm3 (150-450); RBC Distribution Width SD 46.5 fl (35.1-43.9); White Blood Count 5.1 K/mm3 (4.4-11.0)
[2023-12-05 15:04] LABS: International Normalized Ratio 1.9; Prothrombin Time (Protime)PT. 21.5 SECONDS (11.7-14.9)
[2023-12-05 16:12] LABS: Anion Gap 4 (5-15); BUN 20 mg/dL (7-18); BUN/Creat Ratio 26.6 RATIO (10-20); Calcium,Total 9.3 mg/dL (8.5-10.1); Chloride 101 mmol/L (98-107); Creatinine, Serum 0.75 mg/dL (0.55-1.02); EST Glomerular Filtration Rate 78 mL/min (>60); Est Glom Filt Rate - Afr Amer 95 mL/min (>60); Glucose 129 mg/dL (74-106); Potassium 4.5 mmol/L (3.5-5.1); Sodium Level 136 mmol/L (136-145)
== END 2023-12-16 22:26 | disposition home or self-care (01) ==
LOC: LAB 13:46
PROVIDERS: Family Provider Family Medicine Geriatric Medicine; PCP Family Medicine Geriatric Medicine; Referring Provider Nurse Practitioner Gerontology; Visit Provider Nurse Practitioner Gerontology
DX: I48.0 Paroxysmal atrial fibrillation (principal); Z79.01 Long term (current) use of anticoagulants; R53.83 Other fatigue
CPT/HCPCS: 36415; 80048; 84443; 85025; 85610

== ENCOUNTER → 2023-12-15 | Outpatient (CLI) | payer MEDICARE, OTHER, SELFPAY ==
[2023-12-15 14:01] LABS: Absolute Lymphocyte Count 0.57 X10^3/uL (0.83-4.51); Absolute Neutrophil Count 4.3 X10^3/uL (2.0-7.7); Basophil# 0.02 X10^3/uL; Basophil% 0.4 % (0-1); Eosinophil# 0.06 X10^3/uL; Eosinophils% 1.1 % (0-5); Hematocrit 34.2 % (37-47); Hemoglobin 11.1 g/dL (12.0-15.0); Lymphocyte # 0.57 X10^3/ul (0.83-4.51); Lymphocyte % 10.4 % (19-41); Mean Corp Hgb Conc 32.5 g/dL (32-36); Mean Corpuscular Hgb 31.4 pg (27.0-32.0); Mean Corpuscular Volume 96.9 fL (81-99); Mean Platelet Vol. 11.3 fl (6.2-12.0); Monocyte# 0.48 X10^3/uL; Monocyte% 8.7 % (0-10); NRBC Flagged by Analyzer 0 % (0-5); Neutrophil # 4.33 X10^3/uL (2.7-7.7); Neutrophil % 78.9 % (47-70); POSITIVE DIFFERENTIAL YES; Platelet Count 108 K/mm3 (150-450); Red Blood Count 3.53 M/mm3 (4.2-5.4); White Blood Count 5.5 K/mm3 (4.4-11.0)
[2023-12-15 14:14] LABS: International Normalized Ratio 2.2; Prothrombin Time (Protime)PT. 24.3 SECONDS (11.7-14.9)
[2023-12-15 14:27] LABS: ALB/GLOB Ratio 1.4 RATIO (0.9-2.4); AST(SGOT) 31 U/L (15-37); Alanine Aminotransfer ALT/SGPT 44 U/L (13-56); Albumin, Serum 3.7 g/dL (3.2-5.0); Alkaline Phosphatase 119 U/L (45-117); Anion Gap 4 (5-15); BUN 26 mg/dL (7-18); BUN/Creat Ratio 28.7 RATIO (10-20); Chloride 103 mmol/L (98-107); Creatinine, Serum 0.91 mg/dL (0.55-1.02); EST Glomerular Filtration Rate 63 mL/min (>60); Est Glom Filt Rate - Afr Amer 76 mL/min (>60); Globulin 2.7 g/dL (2.2-4.2); Glucose 182 mg/dL (74-106); Potassium 4.5 mmol/L (3.5-5.1); Protein, Total 6.4 g/dL (6.4-8.2); Sodium Level 136 mmol/L (136-145); Thyroid Stim Hormone (TSH) 2.42 uIU/mL (0.358-3.74)
[2023-12-15 14:56] LABS: Vitamin D,25 Hydroxy 62.3 ng/mL
== END | disposition home or self-care (01) ==
LOC: POLAB3 13:12
PROVIDERS: Nurse Practitioner Gerontology; PCP Family Medicine Geriatric Medicine; Visit Provider Family Medicine Geriatric Medicine
DX: I10 Essential (primary) hypertension (principal); I48.0 Paroxysmal atrial fibrillation; E55.9 Vitamin D deficiency, unspecified; Z79.01 Long term (current) use of anticoagulants
CPT/HCPCS: 36415; 80053; 82306; 84443; 85025; 85610

== ENCOUNTER 2023-12-26 17:25 | Observation (INO) | payer MEDICARE, OTHER, SELFPAY ==
[2023-12-26 17:25] VITALS: BP 121/48; PULSE 70; RESP 14; TEMP 35.7; O2SAT 96
--- NOTE | 2023-12-26 17:33 | ED.RN ---
DISCUSSED PT WITH DR. ANGELES, WHO IS IN TRIAGE EXAMINING HER AT THIS TIME. DR. ANGELES CALLING SURGEON.
--- NOTE | 2023-12-26 17:39 | RAD_ITS ---
EXAM: XR CHEST, 1 VIEW CLINICAL INDICATION: Neuro deficit, acute, stroke suspected TECHNIQUE: Frontal view of the chest. COMPARISON: No relevant prior studies available. FINDINGS: LUNGS AND PLEURAL SPACES: Unremarkable. No consolidation or edema. No pneumothorax. No effusion. HEART: Unremarkable. Cardiac silhouette not enlarged. MEDIASTINUM: Central airways and mediastinal contour are unremarkable. BONES/JOINTS: Unremarkable. No acute fracture. SOFT TISSUES: Unremarkable. TUBES, LINES AND DEVICES: Right-sided pacemaker is in place. RAD/Chest 1 View IMPRESSION: No acute findings in the chest. Electronically Signed: Constantino Urrutia MD at 19:12 EDT ,
--- NOTE | 2023-12-26 17:39 | CT_ITS ---
We are attempting to reach an attending provider to discuss findings. An addendum with communication details will be sent when the communication is complete. EXAM: CT HEAD WITHOUT INTRAVENOUS CONTRAST CLINICAL INDICATION: Neuro deficit, acute, stroke suspected TECHNIQUE: Multiple axial images were obtained of the head without intravenous contrast. This CT exam was performed using one or more of the following dose reduction techniques: automated exposure control, adjustment of the mA and/or kV according to patient size, and/or use of iterative reconstruction technique. COMPARISON: No relevant prior studies available. FINDINGS: BRAIN AND EXTRA-AXIAL SPACES: There is mild enlargement of the ventricular system and cortical sulci. There is mild hypoattenuation in the periventricular white matter. No intra- or extra-axial hemorrhage. No evidence of acute infarct. No intracranial mass or mass effect. There is preservation of the peters/white matter interface. Posterior fossa structures are unremarkable. Basal cisterns are patent. BONES/JOINTS: Unremarkable. No discrete lytic or blastic abnormalities. SINUSES: Unremarkable as visualized. Clear. MASTOID AIR CELLS: Unremarkable. Clear. ORBITS: Visualized globes, extraocular muscles, optic nerves and retrobulbar fat appear unremarkable. CT/STROKE Brain/Head without Cont IMPRESSION: 1. No acute intracranial abnormality. 2. Senescent change with small vessel ischemia. 3. ASPECTS score 10. Electronically Signed: Constantino Urrutia MD at 17:56 EDT ,
--- NOTE | 2023-12-26 17:40 | CT_ITS ---
We are attempting to reach an attending provider to discuss findings. An addendum with communication details will be sent when the communication is complete. EXAM: CT ANGIOGRAPHY HEAD AND NECK WITH INTRAVENOUS CONTRAST CLINICAL INDICATION: Neuro deficit, acute, stroke suspected TECHNIQUE: [place]/head and neck CT angiography protocol performed with intravenous contrast. This CT exam was performed using one or more of the following dose reduction techniques: automated exposure control, adjustment of the mA and/or kV according to patient size, and/or use of iterative reconstruction technique. MIP reconstructed images were created and reviewed. CONTRAST: IV 100mL [id number] COMPARISON: No relevant prior studies available. FINDINGS: HEAD: RIGHT ANTERIOR CEREBRAL ARTERY: Unremarkable. No occlusion or significant stenosis. Anterior communicating artery is present. No aneurysm. RIGHT MIDDLE CEREBRAL ARTERY: Unremarkable. No occlusion or significant stenosis. No aneurysm. RIGHT POSTERIOR CEREBRAL ARTERY: Unremarkable. No occlusion or significant stenosis. No aneurysm. RIGHT INTRACRANIAL INTERNAL CAROTID ARTERY: Unremarkable. No significant stenosis. No dissection or occlusion. RIGHT INTRACRANIAL VERTEBRAL ARTERY: Unremarkable. No significant stenosis. No dissection or occlusion. LEFT ANTERIOR CEREBRAL ARTERY: Unremarkable. No occlusion or significant stenosis. No aneurysm. LEFT MIDDLE CEREBRAL ARTERY: Unremarkable. No occlusion or significant stenosis. No aneurysm. LEFT POSTERIOR CEREBRAL ARTERY: Unremarkable. No occlusion or significant stenosis. No aneurysm. LEFT INTRACRANIAL INTERNAL CAROTID ARTERY: Unremarkable. No significant stenosis. No dissection or occlusion. LEFT INTRACRANIAL VERTEBRAL ARTERY: Unremarkable. No significant stenosis. No dissection or occlusion. BASILAR ARTERY: Unremarkable. No occlusion or significant stenosis. No aneurysm. OTHER VASCULATURE: There is nonvisualization of the proximal left vertebral artery with a very small vertebral artery seen at the skull base left. The right vertebral artery appears to be the main supplier to the basilar system. No vascular malformation. NECK: RIGHT COMMON CAROTID ARTERY: Unremarkable. No significant stenosis. No dissection or occlusion. RIGHT EXTRACRANIAL INTERNAL CAROTID ARTERY: There are calcifications in the right carotid bulb and proximal internal carotid artery. There is no stenosis or occlusion. RIGHT EXTERNAL CAROTID ARTERY: Unremarkable. No occlusion. RIGHT EXTRACRANIAL VERTEBRAL ARTERY: Unremarkable. No significant stenosis. No dissection or occlusion. LEFT COMMON CAROTID ARTERY: Unremarkable. No significant stenosis. No dissection or occlusion. LEFT EXTRACRANIAL INTERNAL CAROTID ARTERY: Unremarkable. No significant stenosis. No dissection or occlusion. LEFT EXTERNAL CAROTID ARTERY: Unremarkable. No occlusion. LEFT EXTRACRANIAL VERTEBRAL ARTERY: Unremarkable. No significant stenosis. No dissection or occlusion. 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 No occlusion or significant stenosis. LUNG APICES: See above. HEAD and NECK: BONES/JOINTS: Unremarkable. No discrete lytic or blastic abnormalities. SOFT TISSUES: There are large varices seen within the soft tissues of the right posterior neck. CAROTID STENOSIS REFERENCE USING NASCET CRITERIA: % ICA stenosis = (1 - narrowest ICA diameter/diameter of distal cervical ICA) x 100. Mild - <50% stenosis. Moderate - 50-69% stenosis. Severe - 70-94% stenosis. Near occlusion - 95-99% stenosis. Occluded - 100% stenosis. CT/STROKE CTA Head AND Neck W/Con IMPRESSION: Nonvisualization of the proximal left vertebral artery which is only seen at the skull base. The right vertebral artery the main supplier to the basilar system and is widely patent. No other abnormalities are identified. Electronically Signed: Constantino Urrutia MD at 18:08 EDT ,
[2023-12-26 17:41] VITALS: BMI 20.8
[2023-12-26 17:46] VITALS: BP 121/48; PULSE 70; RESP 14; O2SAT 96
--- NOTE | 2023-12-26 17:46 | EDS_ITS ---
HPI History of Present Illness Chief Complaint: Neuro S/Sx Detail of Chief Complaint: Patient presents from senior speech pathologist office because of inability to use left Informant: patient, spouse/S.O. and other (Dr. Kaur) Onset/Context/Timing Onset: Today and Hours (Onset 1600) Context: Sudden Onset Timing: Intermittent Quality and Location: Positive for Left Arm Parasthesia and Left Arm Weakness Onset: 1600 Current Severity: Gone Maximum Severity: Moderate Worsened by: Unknown Relieved by: Not applicable Associated Symptoms Associated Symptoms: Negative for Headache, Nausea, Vomiting or Chest Pain Narrative Narrative: Patient was at senior speech pathologist office, Dr. Kaur. She had 2 basal cell carcinomas removed. She had local anesthetic. He states the fascia or muscle was not violated and the anesthetic was not near the brachial nerve or scalene nerve. Patient was unable to lift her left arm. She was in an examination chair with her arm in natural position. She also complained of tingling. He had sent her to the emergency room for evaluation. I was asked to see patient in triage. At this time she has no symptoms and no objective findings. Patient does have history of pacemaker and AICD due to dilated cardiomyopathy. She also has history of paroxysmal atrial flutter/fib on Coumadin. She has a mitral valve prosthesis. She is on Coumadin. Will need to determine her last dose. Presume it was held prior to the Mohs procedure. Prior similar symptoms: No Recent Illness/Hospitalization: No PFSH PFSH Medical History Acid reflux Anxiety Anxiety states Arthritis Atrial dysrhythmia Bladder disease Breast implant capsular contracture Breast implant leak Cancer Cardiology follow-up encounter Chronic lumbar radiculopathy Chronic systolic congestive heart failure Dilated cardiomyopathy Essential hypertension Essential tremor Fibromyalgia Gastric reflux Gastritis High cholesterol History of breast cancer History of CHF (congestive heart failure) History of echocardiogram History of esophageal reflux History of irregular heartbeat History of mitral valve disorder History of pain when walking History of stress test HLD (hyperlipidemia) Hypertension Hypothyroidism Inflammatory arthropathy Leg cramps snf current use of anticoagulant Loss of hearing Lumbar spinal stenosis Melanoma Non-smoker 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 tachycardia Paroxysmal atrial fibrillation Paroxysmal atrial flutter Shortness of breath on exertion Thyroid disease Ventricular tachycardia Walker as ambulation aid Wears glasses Home Medications multivitamin 1 ea PO DAILY supplement 08/01/17 [History Last Taken 09/14/23] cholecalciferol (vitamin D3) 50 mcg (2,000 unit) capsule 50 mcg PO DAILY 01/24/21 [History Last Taken 09/14/23] thyroid (pork) 30 mg tablet 30 mg PO DAILY 01/29/21 [History Last Taken 09/14/23] sacubitril 97 mg-valsartan 103 mg tablet (Entresto) 1 tab PO BID 05/07/21 [History Last Taken 09/15/23] acetaminophen 650 mg tablet,extended release 650 mg PO DAILY PRN pain/fever 04/28/23 [History Last Taken 09/14/23] pravastatin 20 mg tablet 20 mg PO QHS cholesterol #90 tabs 08/26/23 [Rx Last Taken 09/14/23] primidone 50 mg tablet 50 mg PO BID #60 tabs 09/04/23 [Rx Last Taken 09/14/23] albuterol sulfate 90 mcg/actuation aerosol inhaler 2 puff inhalation Q4H PRN shortness of breath or wheezing 09/15/23 [History Last Taken 09/13/23] tramadol 50 mg tablet 50 mg PO Q12H 09/15/23 [History Last Taken 09/14/23] warfarin 5 mg tablet 7.5 mg PO DAILY #135 tabs 11/06/23 [Rx Last Taken Unknown] carvedilol 25 mg tablet 25 mg PO BID 12/05/23 [History Last Taken Unknown] furosemide 40 mg tablet 20 mg PO Q OTHER DAY 12/05/23 [History Last Taken Unknown] Allergy/AdvReac Type Severity Reaction Status Date / Time HERMILO Inhibitors Allergy Unknown Verified 12/26/23 17:26 amiodarone Allergy Unknown Verified 12/26/23 17:26 Iodinated Contrast Media [CT] Allergy Nausea/Vom/ Verified 12/26/23 17:26 Diarrhea levothyroxine AdvReac Unknown Nausea Verified 12/26/23 17:26 levothyroxine sodium AdvReac Unknown Nausea Verified 12/26/23 17:26 [From Unithroid] Family History Father Hypertension Cancer Mother Cancer Hypertension Other History of mitral valve replacement Surgical History History of breast implant History of cardiac catheterization History of knee surgery History of local excision of skin lesion History of mastectomy History of mitral valve replacement (~06/1997) History of radiofrequency ablation procedure for cardiac arrhythmia History of tonsillectomy and adenoidectomy Hx of mitral valve repair Presence of double chamber implantable cardioverter-defibrillator (ICD) Presence of implantable cardioverter-defibrillator (ICD) Social History Smoking Status: Never smoker alcohol intake: never caffeine: No additional social history: pt on coumadin pt does not take aspirin, does not take ibuprofen, denies vaping or edibles. ROS ROS ED Constitutional Constitutional ED: Denies chills, fever(s) or subjective Eyes Eyes: Denies blurry vision, change in vision or diplopia ENT ENT ED: Denies rhinorrhea or sore throat Cardiovascular Cardiovascular: Denies chest pain or palpitations Respiratory/Chest Respiratory/Chest: Denies cough, dyspnea or dyspnea on exertion Gastrointestinal Gastrointestinal: Denies abdominal pain, nausea or vomiting Musculoskeletal Musculoskeletal: Reports other Details: She does complain of pain medial aspect of left arm since procedure. ; Denies arthralgias, myalgias or neck pain Integumentary Reports other Details: Dressings applied to biopsy sites. These were not removed. Neurologic Neurologic: Reports paresthesias and weakness; Denies headache(s) Hematologic/Lymphatic Hematologic/Lymphatic: Denies easy bleeding or easy bruising EXAM Physical Exam Const Vital Signs: 12/26/23 17:25 12/26/23 17:39 12/26/23 17:46 Temperature 96.3 F L Temperature Source Temporal Pulse Rate 70 70 Respiratory Rate 14 14 Blood Pressure 121/48 H 121/48 H Blood Pressure Mean 72 72 Pulse Ox 96 96 Oxygen Delivery Method Room Air Room Air Room Air Positive well nourished and well developed General Appearance ED: well developed and NAD HEENT Reports moist mucous membranes atraumatic Eyes PERRL and EOMs intact bilaterally Eyes Narrative: There is no nystagmus. General Eye ED: Negative for pale conjunctiva or scleral icterus Neck no lymphadenopathy and supple Neck Narrative: Wound left side of neck noted. Dressings were not removed. Resp normal respiratory effort and clear to auscultation bilaterally GI normal to inspection, nondistended, normoactive bowel sounds, soft to palpation and non-tender Back/Spine no CVA tenderness Neuro oriented x3, CN's II-XII intact bilaterally and no sensory deficits noted Rodney Coma Scale: document GCS findings Spontaneous Obeys Commands Oriented 15 Sensorium / Orientation: alert Speech: speech normal Sensory Exam: No sensory level loss detected Motor Exam: strength 5/5 throughout Psych mental status grossly normal Skin Skin Narrative: Wounds due to Mohs procedure anterior left neck x 2 NIHSS NIHSS Initial: 1a Level of Consciousness: 0 1b LOC Questions (Score 2 if aphasic/stupor): 0 1c LOC Commands (Only score 1st attempt): 0 2 Best Gaze (If aphasic, use reflexive mvmts.): 0 3 Visual: 0 4 Facial Palsy: 0 5 Motor Arm Right (UN = amputation/fusion): 0 5 Motor Arm Left: 0 6 Motor Leg Right: 0 6 Motor Leg Left: 0 7 Limb ataxia (Only + if out of proportion): 0 8 Sensory (Aphasia/stupor=0 or 1, coma=2): 0 9 Best Language: 0 10 Dysarthria (mute, coma=2, intubated=UN): 0 11 Extinction and Inattention (only scored if +): 0 Total Score: 0 MDM MDM MDM Narrative Medical decision making narrative: Patient was seen in triage. Her NIH at triage was [address] Karu because there was some potential discrepancies or other causes for her symptoms. After discussion with Dr. Kaur concerned this represents a TIA. Symptoms lasted for approximately 1 to 1.5 hours. Lab Data Attestation: I reviewed the patient's lab results. Lab results narrative: CBC reveals mild anemia. Indices are normal. INR is 2.8 and therapeutic. Electrolyte panel is unremarkable. BUN/creatinine ratio is elevated. Glucose is 146 with normal CO2 anion gap. Labs: Laboratory Results - last 24 hr 12/26/23 12/26/23 17:48 17:53 WBC 5.9 RBC 3.76 L Hgb 11.8 L Hct 37.0 MCV 98.4 MCH 31.4 MCHC 31.9 L RDW Std Deviation 46.5 H RDW Coeff of [place] 13.0 Plt Count 172 MPV 10.3 Immature Gran % (Auto) 0.500 Neut % (Auto) 77.0 H Lymph % (Auto) 9.7 L Barton % (Auto) 10.6 H Eos % (Auto) 1.9 Baso % (Auto) 0.3 Absolute Neuts (auto) 4.5 Absolute Lymphs (auto) 0.57 L Nucleated RBC % 0 Differential Comment SEE COMMENT Platelet Estimate ADEQUATE RBC Morphology N CHROM Anisocytosis RARE Macrocytosis RARE PT 29.4 H INR 2.8 APTT 36.6 H Sodium 137 Potassium 4.3 Chloride 104 Carbon Dioxide 28.0 Anion Gap 5 BUN 24 H Creatinine 0.97 Estim Creat Clear Calc 34.76 Est GFR (MDRD) Af Amer 70 Est GFR (MDRD) Non-Af 58 L BUN/Creatinine Ratio 24.7 H Glucose 146 H Hemoglobin A1c 5.9 H Calcium 8.9 Troponin I High Sens 17 POC Glucose 134 H Radiography Chest X-Ray - ED: 1 View and Read by ED Physician (Patient has a pacemaker/AICD right side. Patient has a prosthetic left breast. There is no acute findings. [place] is unremarkable.) Diagnostic Testing: Clinical Impression(s) from Imaging Studies Brain CT 12/26/23 17:39 IMPRESSION: 1. No acute intracranial abnormality. 2. Senescent change with small vessel ischemia. 3. ASPECTS score 10. Electronically Signed: Constantino Urrutia MD at 17:56 EDT , ADDENDUM: 12/26/23 1805 IMPRESSION: 1. No acute intracranial abnormality. 2. Senescent change with small vessel ischemia. 3. ASPECTS score 10. N.B. : The above Results were Read Back by Constantino Urrutia MD to Rowdy Coughlin MD, and understanding confirmed on 12/26/2023 17:58:52 (ET). Electronically Signed: Constantino Urrutia MD at 17:56 EDT , Chest X-Ray 12/26/23 17:39 IMPRESSION: No acute findings in the chest. Electronically Signed: Constantino Urrutia MD at 19:12 EDT , Head/Neck CTA 12/26/23 17:40 IMPRESSION: Nonvisualization of the proximal left vertebral artery which is only seen at the skull base. The right vertebral artery the main supplier to the basilar system and is widely patent. No other abnormalities are identified. Electronically Signed: Constantino Urrutia MD at 18:08 EDT , ADDENDUM: 12/26/23 1818 IMPRESSION: Nonvisualization of the proximal left vertebral artery which is only seen at the skull base. The right vertebral artery the main supplier to the basilar system and is widely patent. No other abnormalities are identified. N.B. : The above Results were Read Back by Constantino Urrutia MD to Rowdy Coughlin MD, and understanding confirmed on 12/26/2023 18:11:12 (ET). Electronically Signed: Constantino Urrutia MD at 18:08 EDT , EKG Initial EKG: Attestation: I personally reviewed and interpreted this EKG as follows: Interpretation: Paced (Ventricular paced rhythm with a rate of 79. QRS duration 72 ms. Cures duration 4 and 34 ms. [place] to left) Management Discussion w/another healthcare provider: Radiologist (Dr. Urrutia contacted me regarding the unenhanced scan at 1758 and the CTA of the head and neck at 1809) Treatment and Re-Evaluation Narrative: Neurologist [facility] is Dr. Pinedo. He agrees patient is not a TNK candidate. She will need a workup for TIA. Stroke Documentation Questions Stroke Team Activated: Yes Reviewed Inclusion/Exclusion criteria: Yes IV Thrombolytic Administered: No No contraindications from thrombolytic administration: No Risks, Benefits, Alternatives Discussed: No Discharge Plan Dx/Rx/DC Orders Clinical Impression: Brain TIA, History of mitral valve replacement, Dilated cardiomyopathy, Cardiac pacemaker, Paroxysmal atrial flutter, Presence of double chamber implantable cardioverter-defibrillator (ICD), Anticoagulant long-term use Disposition Disposition: Acute Care Hospital [facility]
[2023-12-26] MEDS: Ondansetron 4 MG/2 ML Vial IV (17:50)
[2023-12-26 17:55] LABS: Absolute Lymphocyte Count 0.57 X10^3/uL (0.83-4.51); Absolute Neutrophil Count 4.5 X10^3/uL (2.0-7.7); Basophil# 0.02 X10^3/uL; Basophil% 0.3 % (0-1); Eosinophil# 0.11 X10^3/uL; Eosinophils% 1.9 % (0-5); Hemoglobin 11.8 g/dL (12.0-15.0); Lymphocyte # 0.57 X10^3/ul (0.83-4.51); Lymphocyte % 9.7 % (19-41); Mean Corp Hgb Conc 31.9 g/dL (32-36); Mean Corpuscular Hgb 31.4 pg (27.0-32.0); Mean Corpuscular Volume 98.4 fL (81-99); Mean Platelet Vol. 10.3 fl (6.2-12.0); Monocyte# 0.62 X10^3/uL; Monocyte% 10.6 % (0-10); NRBC Flagged by Analyzer 0 % (0-5); Neutrophil # 4.52 X10^3/uL (2.7-7.7); POSITIVE DIFFERENTIAL YES; Platelet Count 172 K/mm3 (150-450); RBC Distribution Width SD 46.5 fl (35.1-43.9); Red Blood Count 3.76 M/mm3 (4.2-5.4); White Blood Count 5.9 K/mm3 (4.4-11.0)
[2023-12-26 17:56] LABS: Differential Indicated SCAN CRITERIA MET
[2023-12-26 18:06] LABS: Partial Thromboplast Time 36.6 Seconds (24.1-36.2)
[2023-12-26 18:07] LABS: International Normalized Ratio 2.8; Prothrombin Time (Protime)PT. 29.4 SECONDS (11.7-14.9)
--- NOTE | 2023-12-26 18:07 | ED.RN ---
ok to dc [facility] per dr. Coughlin
[2023-12-26 18:11] LABS: Bedside Glucose 134 mg/dL (74-106)
[2023-12-26 18:17] LABS: Anion Gap 5 (5-15); BUN 24 mg/dL (7-18); BUN/Creat Ratio 24.7 RATIO (10-20); Calcium,Total 8.9 mg/dL (8.5-10.1); Chloride 104 mmol/L (98-107); Creatinine, Serum 0.97 mg/dL (0.55-1.02); EST Glomerular Filtration Rate 58 mL/min (>60); Est Glom Filt Rate - Afr Amer 70 mL/min (>60); Estimated Creatinine Clearance 34.76 ml/min; Glucose 146 mg/dL (74-106); Potassium 4.3 mmol/L (3.5-5.1); Sodium Level 137 mmol/L (136-145); Troponin-I HS 17 pg/mL (3.0-54.0)
--- NOTE | 2023-12-26 18:17 | PCM.HP.STD ---
HPI - General General Date of Admission: 12/26/23 Date of Service: 12/26/23 Chief Complaint: Left arm weakness and paresthesia HPI Narrative JAMES BURK, is a 83 F who presented to [facility] ED on 12/26/2023 for left arm weakness and paresthesia concerning for stroke. 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 She did have a local anesthetic given in that area but per ED physician the international representative stated the fascia and muscle were not violated and the anesthetic was not near the nerve supplying the arm. During the procedure, patient was suddenly unable to lift her arm. She also reported numbness and tingling down the arm as well. So, the international representative sent her to the ED for further evaluation. Patient's symptoms had resolved by the time she got to the ED. The symptoms in total lasted about 1 to 1.5 hours. When I saw the patient, she was sitting up comfortably in bed, conversing normally and in no acute distress. She was moving her left arm without issue and denies any numbness and tingling in the arm. She denied any other areas of numbness/tingling or weakness. She denies any history of strokelike symptoms like this. 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 Her last dose of Coumadin was yesterday, today's dose was held for the dermatology procedure. Vitals in the ED with normal sinus rhythm with heart rate in the 70s, normotensive to borderline hypotensive, afebrile and good oxygen saturations on room air. CBC with hemoglobin 11.8 (at baseline), WBC count 5, platelets 172. BMP with creatinine 0.97 (baseline 0.6-0.9), otherwise benign. INR 2.8 (goal 2.5-3.5). CT brain without contrast unremarkable. CTA head/neck with mild proximal left vertebral artery anomaly but right vertebral artery is main supplier to the basilar system and likely patent, no other abnormality seen. Chest x-ray unremarkable. [facility] teleneurology evaluated in the ED, NIHSS score of 0, TNK not indicated. Patient will be admitted for further management. [facility] Medical History (Updated 12/26/23 @ 19:55 by Bella La) Acid reflux Anxiety Anxiety states Arthritis Atrial dysrhythmia Bladder disease Breast implant capsular contracture Breast implant leak Cancer Cardiology follow-up encounter Chronic lumbar radiculopathy Chronic systolic congestive heart failure Dilated cardiomyopathy Essential hypertension Essential tremor Fibromyalgia Gastric reflux Gastritis High cholesterol History of breast cancer History of CHF (congestive heart failure) History of echocardiogram History of esophageal reflux History of irregular heartbeat History of mitral valve disorder History of pain when walking History of stress test HLD (hyperlipidemia) Hypertension Hypothyroidism Inflammatory arthropathy 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 Loss of hearing Lumbar spinal stenosis Melanoma Non-smoker 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 tachycardia Paroxysmal atrial fibrillation Paroxysmal atrial flutter Shortness of breath on exertion Thyroid disease Ventricular tachycardia Walker as ambulation aid Wears glasses Home Medications multivitamin 1 ea PO DAILY supplement 08/01/17 [History Last Taken 09/14/23] cholecalciferol (vitamin D3) 50 mcg (2,000 unit) capsule 50 mcg PO DAILY 01/24/21 [History Last Taken 09/14/23] thyroid (pork) 30 mg tablet 30 mg PO DAILY 01/29/21 [History Last Taken 09/14/23] sacubitril 97 mg-valsartan 103 mg tablet (Entresto) 1 tab PO BID 05/07/21 [History Last Taken 09/15/23] acetaminophen 650 mg tablet,extended release 650 mg PO DAILY PRN pain/fever 04/28/23 [History Last Taken 09/14/23] pravastatin 20 mg tablet 20 mg PO QHS cholesterol #90 tabs 08/26/23 [Rx Last Taken 09/14/23] primidone 50 mg tablet 50 mg PO BID #60 tabs 09/04/23 [Rx Last Taken 09/14/23] albuterol sulfate 90 mcg/actuation aerosol inhaler 2 puff inhalation Q4H PRN shortness of breath or wheezing 09/15/23 [History Last Taken 09/13/23] tramadol 50 mg tablet 50 mg PO Q12H 09/15/23 [History Last Taken 09/14/23] warfarin 5 mg tablet 7.5 mg PO DAILY #135 tabs 11/06/23 [Rx Last Taken Unknown] carvedilol 25 mg tablet 25 mg PO BID 12/05/23 [History Last Taken Unknown] furosemide 40 mg tablet 20 mg PO Q OTHER DAY 12/05/23 [History Last Taken Unknown] Allergy/AdvReac Type Severity Reaction Status Date / Time HERMILO Inhibitors Allergy Unknown Verified 12/26/23 17:26 amiodarone Allergy Unknown Verified 12/26/23 17:26 Iodinated Contrast Media [CT] Allergy Nausea/Vom/ Verified 12/26/23 17:26 Diarrhea levothyroxine AdvReac Unknown Nausea Verified 12/26/23 17:26 levothyroxine sodium AdvReac Unknown Nausea Verified 12/26/23 17:26 [From Unithroid] Family History Father Hypertension Cancer Mother Cancer Hypertension Other History of mitral valve replacement Surgical History History of breast implant History of cardiac catheterization History of knee surgery History of local excision of skin lesion History of mastectomy History of mitral valve replacement (~06/1997) History of radiofrequency ablation procedure for cardiac arrhythmia History of tonsillectomy and adenoidectomy Hx of mitral valve repair Presence of double chamber implantable cardioverter-defibrillator (ICD) Presence of implantable cardioverter-defibrillator (ICD) Social History Smoking Status: Never smoker alcohol intake: never caffeine: No additional social history: pt on coumadin pt does not take aspirin, does not take ibuprofen, denies vaping or edibles. ROS Constitutional Constitutional: Denies chills, fatigue, fever(s) or weakness Eyes Eyes: Denies change in vision Cardiovascular Cardiovascular: Denies chest pain, lightheadedness or palpitations Respiratory/Chest Respiratory/Chest: Denies cough, shortness of breath at rest or wheezing Gastrointestinal Gastrointestinal: Denies abdominal pain Neurologic Neurologic: Denies abnormal gait, abnormal speech, confusion, dizziness, focal weakness, headache(s), numbness, paresthesias or tingling Vital Signs Vital Signs Vital Signs: 12/26/23 17:25 12/26/23 17:39 12/26/23 17:46 Temperature 96.3 F L Temperature Source Temporal Pulse Rate 70 70 Respiratory Rate 14 14 Blood Pressure 121/48 H 121/48 H Blood Pressure Mean 72 72 Pulse Ox 96 96 Oxygen Delivery Method Room Air Room Air Room Air Weight Weight: 51.4 kg Body Mass Index (BMI) 20.8 Physical Exam Const alert, oriented x3 and no apparent distress Constitutional Narrative: Pleasant elderly female, thin appearing, otherwise sitting up comfortably in bed, conversing normally, in no acute distress. General Appearance: cooperative and comfortable HEENT normocephalic, head/scalp atraumatic, hearing grossly normal bilaterally, nasal mucous membranes and turbinates normal and moist oral mucous membranes Eyes PERRL, EOMs intact bilaterally and conjunctivae normal Neck full ROM Chest inspection of chest normal Resp normal respiratory effort, normal air movement, no use of accessory muscles and clear to auscultation bilaterally Cardio regular rate, regular rhythm, no murmurs and peripheral pulses 2+ throughout GI normal to inspection, nondistended, normoactive bowel sounds, soft to palpation, non-tender and non-distended Back/Spine normal ROM Extremity normal to inspection, full ROM and no pedal edema Skin no rashes or lesions noted Neuro moves all extremities and no focal motor deficits Speech: speech normal Motor Exam: strength 5/5 throughout Psych mental status grossly normal Results Lab / Micro Data 12/26/23 17:48 12/26/23 17:48 Labs: Laboratory Results - last 24 hr 12/26/23 17:48: WBC 5.9, RBC 3.76 L, Hgb 11.8 L, Hct 37.0, MCV 98.4, MCH 31.4, MCHC 31.9 L, RDW Std Deviation 46.5 H, RDW Coeff of Ana Maria 13.0, Plt Count 172, MPV 10.3, Immature Gran % (Auto) 0.500, Neut % (Auto) 77.0 H, Lymph % (Auto) 9.7 L, [place] % (Auto) 10.6 H, Eos % (Auto) 1.9, Baso % (Auto) 0.3, Absolute Neuts (auto) 4.5, Absolute Lymphs (auto) 0.57 L, Nucleated RBC % 0, PT 29.4 H, INR 2.8, APTT 36.6 H, Sodium 137, Potassium 4.3, Chloride 104, Carbon Dioxide 28.0, Anion Gap 5, BUN 24 H, Creatinine 0.97, Estim Creat Clear Calc 34.76, Est GFR (MDRD) Af Amer 70, Est GFR (MDRD) Non-Af 58 L, BUN/Creatinine Ratio 24.7 H, Glucose 146 H, Calcium 8.9, Troponin I High Sens 17 12/26/23 17:53: POC Glucose 134 H Imaging Radiology Impression Brain CT 12/26/23 17:39 IMPRESSION: 1. No acute intracranial abnormality. 2. Senescent change with small vessel ischemia. 3. ASPECTS score 10. Electronically Signed: Constantino Urrutia MD at 17:56 EDT , ADDENDUM: 12/26/23 1805 IMPRESSION: 1. No acute intracranial abnormality. 2. Senescent change with small vessel ischemia. 3. ASPECTS score 10. N.B. : The above Results were Read Back by Constantino Urrutia MD to Rowdy Coughlin MD, and understanding confirmed on 12/26/2023 17:58:52 (ET). Electronically Signed: Constantino Urrutia MD at 17:56 EDT , Head/Neck CTA 12/26/23 17:40 IMPRESSION: Nonvisualization of the proximal left vertebral artery which is only seen at the skull base. The right vertebral artery the main supplier to the basilar system and is widely patent. No other abnormalities are identified. Electronically Signed: Constantino Urrutia MD at 18:08 EDT , Assessment & Plan Assessment/Plan (1) Brain TIA: PLAN: Plan Patient is an 83-year-old female who presented [facility] ED on 12/26/2023 with left arm weakness and paresthesias concerning for stroke. 1. Left arm weakness and paresthesias, resolved; CVA rule out ? Admit under observation status to PCU. Teleneurology consulted. PT/OT/case management consulted. Orders placed per stroke order set. Patient unfortunately would not be able to have MRI brain done as her pacemaker is incompatible. Echo ordered. Lipid panel and A1c ordered. Will continue NIHSS scoring for now. Will continue home pravastatin 20 mg daily for now, follow-up lipid panel and can change to high intensity statin as needed. Will hold on starting aspirin for now until further results are available. 2. History of dilated cardiomyopathy and V. tach s/p pacemaker and AICD placement ? Follows with [place] [facility], last office visit on 12/04. History of severe HFrEF, last echo in 04/2022 showed an EF of 15%, severe global LV systolic dysfunction, stage III diastolic dysfunction, moderately enlarged LA, stable mechanical mitral valve apparatus. Plan was for repeat outpatient echo in January, will repeat echo here as noted above. Continue home Coreg 25 mg twice daily. Will hold home Entresto and Lasix every other day for now given borderline hypotension and mild creatinine elevation on admission, likely okay to resume on discharge. 3. Paroxysmal A-fib/flutter, history of mitral valve replacement on Coumadin ? Follows with cardiology as noted above. In normal sinus rhythm on admit. INR 2.8 on admit, goal 2.5-3.5. Continue home Coreg and warfarin. 4. Chronic age-related debility ? Previously lived at home alone until admission in late August. Unclear if she currently lives at home alone. Daughter was present at bedside in ED and is very involved. PT/OT/case management following as above. 5. Chronic anemia ? Hemoglobin 11.8 on admit, at baseline. Stable. Chronic medical conditions: ? Hypothyroidism: TSH 2.42 on 12/14. On home pork thyroid hormone 30 mg daily. Will hold this on admission, okay to resume on discharge. ? Chronic pain: Stable. Continue home tramadol. DVT prophylaxis: Warfarin CODE STATUS: Full code, verified Expected disposition: Home, 1 to 2 days Total clinical time spent by myself addressing the patient's medical issues, reviewing all the data, and collaborating with patient's care team: 55 minutes. Charges/Coding Visit Charges Inpatient E&M: 03390 Init Hosp L2
[2023-12-26 18:18] LABS: Anisocytosis RARE; Macrocytosis RARE; Platelet Estimate ADEQUATE (ADEQ); Red Cell Morphology N CHROM NORMAL (NORM C&C)
[2023-12-26 18:25] VITALS: BP 134/55; PULSE 70; RESP 21; O2SAT 95
--- NOTE | 2023-12-26 18:27 | ECHOD_ITS ---
Version 2 Reason For Study: TIA/Stroke Procedure This was a 2D Doppler, Color Flow transthoracic echocardiogram. Myocardial strain analysis was performed in this exam to aid in the assessment of cardiac function. The study was technically difficult. Technically difficult study due to breast reconstruction. Exam performed portable in patient room. Left Ventricle Normal size and thickness. Severe global left ventricular systolic dysfunction. The left ventricular ejection fraction is 20 %. Stage 3 diastolic dysfunction. Right Ventricle Normal right ventricle. ICD or pacer leads identified within the right ventricle. Atria The left atrium is severely enlarged. The right atrium is moderately enlarged. ICD or pacer leads identified within the right atrium. Bubble contrast study is negative for PFO/ASD. Mitral Valve Mitral valve not well visualized. Trivial mitral valve insufficiency. Mechanical mitral valve appears to be functioning normally. Mean peak gradient across prosthetic mitral valve 4.1 mmHg. Tricuspid Valve Severe (4+) tricuspid valve insufficiency. Right ventricular systolic pressure estimated to be 52 mmHg. Aortic Valve Trisinus/trileaflet aortic valve. Mild diffuse aortic valve thickening. Pulmonic Valve The pulmonic valve is not well visualized. Great Vessels The aortic root is not well visualized. Pericardium/Pleural No pericardial effusion. Medication Performed a rapid injection of agitated mix of 9 cc saline and 1cc air to assess for atrial septal defect. MMode/2D Measurements & Calculations LVIDd: 4.5 cm IVSd: 0.93 cm Ao root diam: 2.8 cm LVIDs: 3.3 cm LVPWd: 0.88 cm RVDd: 2.9 cm FS: 25.8 % LAV(MOD-bp): 67.6 ml LVAd ap4: 21.9 cm2 SV(MOD-sp4): 17.5 ml LAV(MOD-bp) Indexed: 45.2 ml/m2 LVLd ap4: 6.4 cm LAV(MOD-sp2): 69.7 ml EDV(MOD-sp4): 63.2 ml LAV(MOD-sp4): 59.6 ml EDV(sp4-el): 64.2 ml LVAs ap4: 18.2 cm2 LVLs ap4: 6.0 cm ESV(MOD-sp4): 45.7 ml ESV(sp4-el): 47.1 ml EF(MOD-sp4): 27.7 % EF(sp4-el): 26.6 % SV(sp4-el): 17.0 ml LA A4 area: 21.0 cm2 LA dimension(2D): 5.7 cm RA A4 area: 15.5 cm2 TAPSE: 0.78 cm Doppler Measurements & Calculations MV E max mitch: 154.6 cm/sec Lat Peak E' Mitch: 4.9 cm/sec Med Peak E' Mitch: 4.0 cm/sec MV A max mitch: 27.4 cm/sec E/E' lat: 31.7 E/E' med: 38.2 MV E/A: 5.7 MV V2 max: 187.5 cm/sec Ao V2 max: 139.3 cm/sec LV V1 max: 100.5 cm/sec MV max P.1 mmHg Ao max P.8 mmHg LV V1 max P.0 mmHg MV V2 mean: 86.1 cm/sec Ao V2 mean: 103.6 cm/sec MV mean P.1 mmHg Ao mean P.5 mmHg MV V2 VTI: 29.9 cm Ao V2 VTI: 25.9 cm PA V2 max: 72.7 cm/sec TR max mitch: 304.2 cm/sec TR max P.0 mmHg ECHO/Echo Complete Interpretation Summary The left ventricular ejection fraction is 20 %. Stage 3 diastolic dysfunction. The left atrium is severely enlarged. The right atrium is moderately enlarged. Bubble contrast study is negative for PFO/ASD. Mechanical mitral valve appears to be functioning normally. Mean peak gradient across prosthetic mitral valve 4.1 mmHg Severe (4+) tricuspid valve insufficiency. Right ventricular systolic pressure estimated to be 52 mmHg. Ordering Physician: Ruiz Landers Referring Physician: Romie Landeros Chi Performed By: Shawnee Herrera RDCS, RVT
[2023-12-26 18:50] VITALS: BMI 20.8
[2023-12-26 19:06] VITALS: BP 134/55; PULSE 70; RESP 21; TEMP 36.2; O2SAT 95
[2023-12-26 19:15] LABS: Hemoglobin A1c 5.9 % (3.8-5.6)
[2023-12-26 19:39] VITALS: BMI 20.9
[2023-12-26 20:00] VITALS: BP 147/68; PULSE 70; RESP 16; TEMP 36.1; O2SAT 96
[2023-12-26] MEDS: Primidone 50 MG Tablet PO (20:17)
[2023-12-26] MEDS: Pravastatin 20 MG Tablet PO (20:17)
[2023-12-26] MEDS: Carvedilol 25 MG Tablet PO (20:17)
[2023-12-26] MEDS: traMADol 50 MG Tablet PO (20:25)
[2023-12-26 22:52] VITALS: BMI 20.9
[2023-12-26 23:30] VITALS: O2SAT 95
[2023-12-27] VITALS (7 sets, daily range): BP systolic 99–128; BP diastolic 43–56; PULSE 66–80; RESP 16–18; TEMP 36.2–36.9; O2SAT 95–98; BMI 20.9
[2023-12-27 08:05] LABS: Hematocrit 32.5 % (37-47); Hemoglobin 10.2 g/dL (12.0-15.0); Mean Corp Hgb Conc 31.4 g/dL (32-36); Mean Corpuscular Hgb 31.3 pg (27.0-32.0); Mean Corpuscular Volume 99.7 fL (81-99); Mean Platelet Vol. 11.3 fl (6.2-12.0); Platelet Count 141 K/mm3 (150-450); RBC Distribution Width CV 13.1 % (11.6-14.6); RBC Distribution Width SD 47.9 fl (35.1-43.9); Red Blood Count 3.26 M/mm3 (4.2-5.4); White Blood Count 3.9 K/mm3 (4.4-11.0)
[2023-12-27 08:38] LABS: Anion Gap 4 (5-15); BUN 28 mg/dL (7-18); BUN/Creat Ratio 37.5 RATIO (10-20); Calcium,Total 8.6 mg/dL (8.5-10.1); Chloride 106 mmol/L (98-107); Cholesterol 143 mg/dL (200); Creatinine, Serum 0.75 mg/dL (0.55-1.02); EST Glomerular Filtration Rate 79 mL/min (>60); Est Glom Filt Rate - Afr Amer 96 mL/min (>60); Estimated Creatinine Clearance 40.21 ml/min; Glucose 115 mg/dL (74-106); High Density Lipoprotein 73 mg/dL; Potassium 4.6 mmol/L (3.5-5.1); Sodium Level 138 mmol/L (136-145); Triglycerides 62 mg/dL; Very Low Density Lipoprotein 12 mg/dL (5-40)
[2023-12-27] MEDS: Carvedilol 25 MG Tablet PO (08:47)
[2023-12-27] MEDS: Multivitamins,Therapeutic Tablet 1 TABLET PO (08:47)
[2023-12-27] MEDS: traMADol 50 MG Tablet PO (08:48)
[2023-12-27] MEDS: Cholecalciferol (VIT D3) 25 MCG TABLET (1,000 UNITS) 50 MCG PO (08:48)
[2023-12-27] MEDS: Primidone 50 MG Tablet PO (08:48)
--- NOTE | 2023-12-27 09:21 | CASEMGMT ---
Social Work Pt completed PHQ-9 with SW, pt scored a 3. Pt attributes the symptoms showing in the PHQ-9 as having more to do with her overall than her mental health. SW also spoke to pt about how she is managing at home. Pt lives alone, her daughter comes to stay w/her every other weekend. Her son lives local. Pt uses a walker at baseline. Pt anticipates returning home at discharge, she does have [facility] coming in for PT/OT. SW remains available should any additional social service needs arise. YURI Villagran
--- NOTE | 2023-12-27 14:12 | CT_ITS ---
We are attempting to reach an attending provider to discuss findings. An addendum with communication details will be sent when the communication is complete. STUDY: CT BRAIN WITHOUT CONTRAST REASON FOR EXAM: Female, 83 years old. Altered mental status. Stroke alert. RADIATION DOSAGE (If Supplied By Facility): CTDIvol = ( 45 ) mGy, DLP = ( 779 ) mGycm TECHNIQUE: Transaxial CT imaging of the brain was performed without administration of intravenous contrast material. Individualized dose optimization techniques were used for this CT. COMPARISON: Prior study dated: 12/26/2023 FINDINGS: PARENCHYMA: There is no acute bleed or infarct. There are stable chronic ischemic and atrophic changes. VENTRICLES: There is no hydrocephalus. MASTOID AIR CELLS AND PARANASAL SINUSES: The visualized paranasal sinuses are clear. The mastoid air cells are clear. BONES: There is no skull fracture. SOFT TISSUES: The visualized soft tissues are within normal limits. CT/STROKE Brain/Head without Cont IMPRESSION: Stable chronic ischemic and atrophic changes. No acute intracranial abnormality. Electronically Signed: Wilbert Levin MD at 15:00 EDT ,
--- NOTE | 2023-12-27 14:19 | CON.PCM.NE_ITS ---
Assessment and Plan: Neuro Assessment/Plan Telestroke (Bidirectional Audio-video) [facility] Consult Note 83 y/o woman with h/o dilated cardiomyopathy with pacemaker and AICD placement, paroxysmal atrial fib/flutter and mitral valve replacement on Coumadin p/w transient left UE weakness and paresthesia, lasted for few hours that started after getting removal of 2 basal cell carcinomas from left upper neck/shoulder region. Denies any pain at that time. INR 2.8 (goal 2.5-3.5). CT brain without contrast unremarkable. CTA head/neck with mild proximal left vertebral artery anomaly but right vertebral artery is main supplier to the basilar system and likely patent, no other abnormality seen. Chest x-ray unremarkable. In the ER- NIHSS score of 0, TNK not indicated. Unable to get MRI due to AICD. Diagnosis: Possible stroke or TIA Plan: Continue coumadin and statin. Follow up TTE. 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 I personally attended this patient and spent a total time of 71 minutes evaluating this patient including clinical assessment, review of chart, medical history imaging, and determining appropriate treatment and workup. HPI Consult Data Date of Consult: 12/27/23 HPI Narrative HPI Narrative: 83 y/o woman with h/o dilated cardiomyopathy with pacemaker and AICD placement, paroxysmal atrial fib/flutter and mitral valve replacement on Coumadin p/w transient left UE weakness and paresthesia, lasted for few hours that started after getting removal of 2 basal cell carcinomas from left upper neck/shoulder region. Denies any pain at that time. INR 2.8 (goal 2.5-3.5). CT brain without contrast unremarkable. CTA head/neck with mild proximal left vertebral artery anomaly but right vertebral artery is main supplier to the basilar system and likely patent, no other abnormality seen. Chest x-ray unremarkable. In the ER- NIHSS score of 0, TNK not indicated. Unable to get MRI due to AICD. [facility] Medical History (Updated 12/26/23 @ 19:55 by Bella La) Acid reflux Anxiety Anxiety states Arthritis Atrial dysrhythmia Bladder disease Breast implant capsular contracture Breast implant leak Cancer Cardiology follow-up encounter Chronic lumbar radiculopathy Chronic systolic congestive heart failure Dilated cardiomyopathy Essential hypertension Essential tremor Fibromyalgia Gastric reflux Gastritis High cholesterol History of breast cancer History of CHF (congestive heart failure) History of echocardiogram History of esophageal reflux History of irregular heartbeat History of mitral valve disorder History of pain when walking History of stress test HLD (hyperlipidemia) Hypertension Hypothyroidism Inflammatory arthropathy Leg cramps group home current use of anticoagulant Loss of hearing Lumbar spinal stenosis Melanoma Non-smoker 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 tachycardia Paroxysmal atrial fibrillation Paroxysmal atrial flutter Shortness of breath on exertion Thyroid disease Ventricular tachycardia Walker as ambulation aid Wears glasses Home Medications multivitamin 1 ea PO DAILY supplement 08/01/17 [History Last Taken 09/14/23] cholecalciferol (vitamin D3) 50 mcg (2,000 unit) capsule 50 mcg PO DAILY 01/24/21 [History Last Taken 09/14/23] thyroid (pork) 30 mg tablet 30 mg PO DAILY 01/29/21 [History Last Taken 09/14/23] sacubitril 97 mg-valsartan 103 mg tablet (Entresto) 1 tab PO BID 05/07/21 [History Last Taken 09/15/23] acetaminophen 650 mg tablet,extended release 650 mg PO DAILY PRN pain/fever 04/28/23 [History Last Taken 09/14/23] pravastatin 20 mg tablet 20 mg PO QHS cholesterol #90 tabs 08/26/23 [Rx Last Taken 09/14/23] primidone 50 mg tablet 50 mg PO BID #60 tabs 09/04/23 [Rx Last Taken 09/14/23] albuterol sulfate 90 mcg/actuation aerosol inhaler 2 puff inhalation Q4H PRN shortness of breath or wheezing 09/15/23 [History Last Taken 09/13/23] tramadol 50 mg tablet 50 mg PO Q12H 09/15/23 [History Last Taken 09/14/23] warfarin 5 mg tablet 7.5 mg PO DAILY #135 tabs 11/06/23 [Rx Last Taken Unknown] carvedilol 25 mg tablet 25 mg PO BID 12/05/23 [History Last Taken Unknown] furosemide 40 mg tablet 20 mg PO Q OTHER DAY 12/05/23 [History Last Taken Unknown] Allergy/AdvReac Type Severity Reaction Status Date / Time HERMILO Inhibitors Allergy Unknown Verified 12/26/23 17:26 amiodarone Allergy Unknown Verified 12/26/23 17:26 Iodinated Contrast Media [CT] Allergy Nausea/Vom/ Verified 12/26/23 17:26 Diarrhea levothyroxine AdvReac Unknown Nausea Verified 12/26/23 17:26 levothyroxine sodium AdvReac Unknown Nausea Verified 12/26/23 17:26 [From Unithroid] Family History Father Hypertension Cancer Mother Cancer Hypertension Other History of mitral valve replacement Surgical History History of breast implant History of cardiac catheterization History of knee surgery History of local excision of skin lesion History of mastectomy History of mitral valve replacement (~06/1997) History of radiofrequency ablation procedure for cardiac arrhythmia History of tonsillectomy and adenoidectomy Hx of mitral valve repair Presence of double chamber implantable cardioverter-defibrillator (ICD) Presence of implantable cardioverter-defibrillator (ICD) Social History Smoking Status: Never smoker alcohol intake: never caffeine: No additional social history: pt on coumadin pt does not take aspirin, does not take ibuprofen, denies vaping or edibles. Vital Signs Vital Signs Vital Signs: 12/26/23 17:25 12/26/23 17:39 12/26/23 17:46 Temperature 96.3 F L Temperature Source Temporal Pulse Rate 70 70 Pulse Strength Respiratory Rate 14 14 Respiratory Effort Respiratory Depth Respiratory Pattern Blood Pressure 121/48 H 121/48 H Blood Pressure Mean 72 72 Blood Pressure Source Blood Pressure Position Blood Pressure Location Pulse Ox 96 96 Oxygen Delivery Method Room Air Room Air Room Air 12/26/23 18:25 12/26/23 19:06 12/26/23 20:00 Temperature 97.1 F L 97.0 F L Temperature Source Temporal Pulse Rate 70 70 70 Pulse Strength Respiratory Rate 21 H 21 H 16 Respiratory Effort Respiratory Depth Respiratory Pattern Blood Pressure 134/55 H 134/55 H 147/68 H Blood Pressure Mean 81 81 94 Blood Pressure Source Monitor Blood Pressure Position Semi-Fowlers Blood Pressure Location Right Arm Pulse Ox 95 95 96 Oxygen Delivery Method Room Air 12/26/23 22:00 12/26/23 22:00 12/26/23 20:00 Temperature 97.0 F L Temperature Source Temporal Pulse Rate 70 Pulse Strength Normal (2+) Respiratory Rate 16 Respiratory Effort Normal Non-Labored Respiratory Depth Normal Respiratory Pattern Normal Blood Pressure 147/68 H Blood Pressure Mean 94 Blood Pressure Source Blood Pressure Position Blood Pressure Location Pulse Ox 96 Oxygen Delivery Method Room Air Room Air 12/27/23 00:00 12/26/23 23:30 12/27/23 04:00 Temperature 97.2 F L 97.1 F L Temperature Source Temporal Temporal Pulse Rate 72 66 Pulse Strength Respiratory Rate 18 16 Respiratory Effort Respiratory Depth Respiratory Pattern Blood Pressure 99/43 L 102/44 L Blood Pressure Mean 61 63 Blood Pressure Source Monitor Monitor Blood Pressure Position Supine Semi-Fowlers Blood Pressure Location Right Arm Right Arm Pulse Ox 96 95 98 Oxygen Delivery Method Room Air Room Air Room Air 12/27/23 04:00 12/27/23 07:21 12/27/23 07:30 Temperature 98.2 F Temperature Source Oral Pulse Rate 80 Pulse Strength Respiratory Rate 16 Respiratory Effort Normal Non-Labored Respiratory Depth Normal Respiratory Pattern Normal Blood Pressure 120/56 L Blood Pressure Mean 77 Blood Pressure Source Monitor Blood Pressure Position Semi-Fowlers Blood Pressure Location Right Arm Pulse Ox 96 95 Oxygen Delivery Method Room Air Room Air Room Air 12/27/23 08:34 12/27/23 08:40 12/27/23 11:15 Temperature 98.4 F Temperature Source Oral Pulse Rate 70 70 Pulse Strength Respiratory Rate 16 Respiratory Effort Normal Non-Labored Respiratory Depth Normal Respiratory Pattern Normal Blood Pressure 128/46 H 115/49 L Blood Pressure Mean 73 71 Blood Pressure Source Monitor Monitor Blood Pressure Position Semi-Fowlers Semi-Fowlers Blood Pressure Location Right Arm Right Arm Pulse Ox 98 Oxygen Delivery Method Room Air Room Air 12/27/23 11:15 Temperature 98.4 F Temperature Source Oral Pulse Rate 70 Pulse Strength Respiratory Rate 16 Respiratory Effort Respiratory Depth Respiratory Pattern Blood Pressure 115/49 L Blood Pressure Mean 71 Blood Pressure Source Blood Pressure Position Blood Pressure Location Pulse Ox 98 Oxygen Delivery Method Room Air Weight Weight: 51.8 kg Body Mass Index (BMI) 20.9 EEG Results Procedure Details EEG Procedure Details: JAMES BURK is a 83 year old F with a past medical history of , who presents for evaluation of Electroencephalogram on DATE at TIME NIHSS NIHSS Nursing Documentation NIHSS Nursing Documentation: NIHSS: Ischemic Stroke/TIA Start: 12/26/23 19:36 Text: For PCU Patients: NIH and Neuro Check every 4 Status: Active hours, PRN and with change in RN caregiver. Freq: [id number] Protocol: Activity Type Activity Date Activity User E-sign Co-sign Detail Recorded Client Recorded Date Recorded By Document 12/27/23 11:15 MS Desktop 12/27/23 11:18 MS 12/27/23 11:15 NIH Stroke Scale [NIHSS] A score of 0 is normal or asymptomatic . Total possible score is 42. Inpatient: RN or Physician to activate a stroke alert for onset of new stroke symptoms or with NIHSS increase >/= 3 points. Following change in neurological status, NIHSS will be performed per physician order or more frequently PRN. -1a. Level of Consciousness Alert; keenly responsive -1b. LOC Questions Answers BOTH questions correctly. -1c. LOC Commands Performs both tasks correctly . -2. Best Gaze Normal -3. Visual No visual loss -4. Facial Palsy Normal symmetrical movements -5a. Left Arm No drift; arm holds 90 (or 45 ) degrees for full 10 seconds -5b. Right Arm No drift; arm holds 90 (or 45 ) degrees for full 10 seconds -6a. Left Leg No drift; leg holds 30-degree position for full 5 seconds -6b. Right Leg No drift; leg holds 30-degree position for full 5 seconds -7. Limb Ataxia Absent -8. Sensory Normal; no sensory loss -9. Best Language No aphasia; normal -10. Dysarthria Normal -11. Extinction and Inattention No abnormality -Total 0 Query Text:A score of 0 is normal or asymptomatic. Total possible score is 42 . ED: Notify Physician for NIHSS increase by > / = 3 points. Inpatient: RN or Physician to activate a stroke alert for NIHSS increase of > / = 3 points. Coma Scale [Assess] -Eye Opening Spontaneous -Motor Obeys Commands -Verbal Oriented [Total] -Coma Scale Total 15 NIHSS 1a. Level of Consciousness: Alert; keenly responsive 1b. LOC Questions: Answers BOTH questions correctly. 1c. LOC Commands: Performs both tasks correctly. 2. Best Gaze: Normal 3. Visual: No visual loss 4. Facial Palsy: Normal symmetrical movements 5a. Left Arm: No drift; arm holds 90 (or 45) degrees for full 10 seconds 5b. Right Arm: No drift; arm holds 90 (or 45) degrees for full 10 seconds 6a. Left Leg: No drift; leg holds 30-degree position for full 5 seconds 6b. Right Leg: No drift; leg holds 30-degree position for full 5 seconds 7. Limb Ataxia: Absent 8. Sensory: Normal; no sensory loss 9. Best Language: No aphasia; normal 10. Dysarthria: Normal 11. Extinction and Inattention: No abnormality Total: 0 Physical Exam Narrative General: The patient appears nutritionally appropriate, well-groomed, and appears comfortable in no acute distress. Mental Status:? The patient?s mental status was normal including orientation.? Language was intact.? Cranial nerves:? Visual cisneros full, and extra-ocular motion was intact. Face motion symmetric.? There was no dysarthria. Motor: Normal strength and tone in all four extremities. No pronator drift. Sensation: Intact light touch bilaterally, no extinction.? Coordination:? Bilateral finger to nose was normal.? There was no dysmetria. Gait:? deferred ROS Constitutional Constitutional: Denies chills, fatigue, fever(s) or weakness Eyes Eyes: Denies change in vision Cardiovascular Cardiovascular: Denies chest pain, lightheadedness or palpitations Respiratory/Chest Respiratory/Chest: Denies cough, shortness of breath at rest or wheezing Gastrointestinal Gastrointestinal: Denies abdominal pain Neurologic Neurologic: Denies abnormal gait, abnormal speech, confusion, dizziness, focal weakness, headache(s), numbness, paresthesias or tingling Lab / Micro Data 12/27/23 06:48 12/27/23 06:48 Labs: Laboratory Results - last 24 hr 12/26/23 17:48: WBC 5.9, RBC 3.76 L, Hgb 11.8 L, Hct 37.0, MCV 98.4, MCH 31.4, MCHC 31.9 L, RDW Std Deviation 46.5 H, RDW Coeff of Ana Maria 13.0, Plt Count 172, MPV 10.3, Immature Gran % (Auto) 0.500, Neut % (Auto) 77.0 H, Lymph % (Auto) 9.7 L, [place] % (Auto) 10.6 H, Eos % (Auto) 1.9, Baso % (Auto) 0.3, Absolute Neuts (auto) 4.5, Absolute Lymphs (auto) 0.57 L, Nucleated RBC % 0, Differential Comment SEE COMMENT, Platelet Estimate ADEQUATE, RBC Morphology N CHROM, Anisocytosis RARE, Macrocytosis RARE, PT 29.4 H, INR 2.8, APTT 36.6 H, Sodium 137, Potassium 4.3, Chloride 104, Carbon Dioxide 28.0, Anion Gap 5, BUN 24 H, Creatinine 0.97, Estim Creat Clear Calc 34.76, Est GFR (MDRD) Af Amer 70, Est GFR (MDRD) Non-Af 58 L, BUN/Creatinine Ratio 24.7 H, Glucose 146 H, Hemoglobin A1c 5.9 H, Calcium 8.9, Troponin I High Sens 17 12/26/23 17:53: POC Glucose 134 H 12/27/23 06:48: WBC 3.9 L, RBC 3.26 L, Hgb 10.2 L, Hct 32.5 L, MCV 99.7 H, MCH 31.3, MCHC 31.4 L, RDW Std Deviation 47.9 H, RDW Coeff of Ana Maria 13.1, Plt Count 141 L, MPV 11.3, Sodium 138, Potassium 4.6, Chloride 106, Carbon Dioxide 28.0, Anion Gap 4 L, BUN 28 H, Creatinine 0.75, Estim Creat Clear Calc 40.21, Est GFR (MDRD) Af Amer 96, Est GFR (MDRD) Non-Af 79, BUN/Creatinine Ratio 37.5 H, Glucose 115 H, Calcium 8.6, Triglycerides 62, Cholesterol 143, LDL Cholesterol 58, VLDL Cholesterol 12, HDL Cholesterol 73 Imaging Radiology Impression Brain CT 12/26/23 17:39 IMPRESSION: 1. No acute intracranial abnormality. 2. Senescent change with small vessel ischemia. 3. ASPECTS score 10. Electronically Signed: Constantino Urrutia MD at 17:56 EDT , ADDENDUM: 12/26/23 8193 IMPRESSION: 1. No acute intracranial abnormality. 2. Senescent change with small vessel ischemia. 3. ASPECTS score 10. N.B. : The above Results were Read Back by Constantino Urrutia MD to Rowdy Coughlin MD, and understanding confirmed on 12/26/2023 17:58:52 (ET). Electronically Signed: Constantino Urrutia MD at 17:56 EDT , Chest X-Ray 12/26/23 17:39 IMPRESSION: No acute findings in the chest. Electronically Signed: Constantino Urrutia MD at 19:12 EDT , Head/Neck CTA 12/26/23 17:40 IMPRESSION: Nonvisualization of the proximal left vertebral artery which is only seen at the skull base. The right vertebral artery the main supplier to the basilar system and is widely patent. No other abnormalities are identified. Electronically Signed: Constantino Urrutia MD at 18:08 EDT Reading Location ID and State: [facility] / [place] Tel , Service support , ADDENDUM: 12/26/23 1818 IMPRESSION: Nonvisualization of the proximal left vertebral artery which is only seen at the skull base. The right vertebral artery the main supplier to the basilar system and is widely patent. No other abnormalities are identified. N.B. : The above Results were Read Back by Constantino Urrutia MD to Rowdy Coughlin MD, and understanding confirmed on 12/26/2023 18:11:12 (ET). Electronically Signed: Constantino Urrutia MD at 18:08 EDT , Active Medications Active Medications Active Medications: Current Medications Generic Name Dose Route Start Last Admin Trade Name Freq PRN Reason Stop Dose Admin Albuterol Sulfate 2.5 mg 12/26/23 19:44 Albuterol 2.5 Mg/3 Ml Vial.Neb. INHALATION Q4H PRN shortness of breath or wheezing Carvedilol 25 mg 12/26/23 22:00 12/27/23 08:47 Carvedilol 25 Mg Tablet PO 25 mg BID KAROL Administration Protocol Cholecalciferol 50 mcg 12/27/23 10:00 12/27/23 08:48 Cholecalciferol (Vit D3) 25 Mcg Tablet (1,000 Units) PO 50 mcg DAILY KAROL Administration Iopamidol 0 ml 12/26/23 17:45 12/26/23 22:53 Contrast Allergy Safety Check IV Not Given X1 KAROL Labetalol HCl 20 mg 12/26/23 17:39 Labetalol (Prefilled) 20 Mg/4 Ml IV 12/27/23 17:39 X1 PRN Blood Pressure Labetalol HCl 10 - 20 mg 12/26/23 19:36 Labetalol (Prefilled) 20 Mg/4 Ml IV 12/27/23 19:36 Q10M PRN PRN maintain BP parameters with HR >/=60 Multivitamins 1 tablet 12/27/23 08:00 12/27/23 08:47 Multivitamins,Therapeutic Tablet PO 1 tablet DAILYCM KAROL Administration Pravastatin Sodium 20 mg 12/26/23 22:00 12/26/23 20:17 Pravastatin 20 Mg Tablet PO 20 mg QHS KAROL Administration Primidone 50 mg 12/26/23 22:00 12/27/23 08:48 Primidone 50 Mg Tablet PO 50 mg BID KAROL Administration Sodium Chloride 10 - 40 ml 12/26/23 19:45 0.9% Saline Lock 10 Ml Syringe IV UD PRN SALINE FLUSH Tramadol HCl 50 mg 12/26/23 22:00 12/27/23 08:48 Tramadol 50 Mg Tablet PO 50 mg BID KAROL Administration Warfarin Sodium 7.5 mg 12/27/23 17:00 12/26/23 20:17 Warfarin 7.5 Mg Tablet PO 7.5 mg DAILY@1700 KAROL Administration
--- NOTE | 2023-12-27 15:20 | DS.PCM_ITS ---
Providers Date of Admission: 12/26/23 Primary Care Physician: Dr. Romie Landeros MD Consultations 12/26/23 19:36 Consult: Tele-Neurology Routine Consulting Provider: [facility] Reason for Consult: Acute Ischemic Stroke/TIA EMERGENT Consult: No MD Notified: Yes Date Notified: 12/26/23 Time Notified: 20:30 Method of Notification: Answering Service Method of Consult:: Telemedicine Nursing Unit Staff Notify [facility] of Tele-Neurology Consult: Yes Reason For Visit: TIA Diagnosis Discharge Diagnosis (1) Brain TIA: Status: Acute Code(s): G45.9 - Transient cerebral ischemic attack, unspecified Medications at Discharge Home Medications multivitamin 1 ea PO DAILY supplement 08/01/17 cholecalciferol (vitamin D3) 50 mcg (2,000 unit) capsule 50 mcg PO DAILY vitamin 01/24/21 thyroid (pork) 30 mg tablet 30 mg PO DAILY thyroid 01/29/21 sacubitril 97 mg-valsartan 103 mg tablet (Entresto) 1 tab PO BID heart failure 05/07/21 acetaminophen 650 mg tablet,extended release 650 mg PO DAILY PRN pain/fever 04/28/23 pravastatin 20 mg tablet 20 mg PO QHS cholesterol #90 tabs 08/26/23 primidone 50 mg tablet 50 mg PO BID seizures #60 tabs 09/04/23 albuterol sulfate 90 mcg/actuation aerosol inhaler 2 puff inhalation Q4H PRN shortness of breath or wheezing 09/15/23 tramadol 50 mg tablet 50 mg PO Q12H pain 09/15/23 warfarin 5 mg tablet 7.5 mg PO DAILY blood thinner #135 tabs 11/06/23 carvedilol 25 mg tablet 25 mg PO BID BP/heart 12/05/23 furosemide 40 mg tablet 20 mg PO Q OTHER DAY swelling 12/05/23 Hospital Course Operations None Procedures 2-D Echocardiogram Summary of Care Provided Minutes Spent on Discharge: 34 Hospital Course: Per HPI: JAMES BURK, is a 83 F who presented to [facility] ED on 12/26/2023 for left arm weakness and paresthesia concerning for stroke. 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 She did have a local anesthetic given in that area but per ED physician the operations forester stated the fascia and muscle were not violated and the anesthetic was not near the nerve supplying the arm. During the procedure, patient was suddenly unable to lift her arm. She also reported numbness and tingling down the arm as well. So, the operations forester sent her to the ED for further evaluation. Patient's symptoms had resolved by the time she got to the ED. The symptoms in total lasted about 1 to 1.5 hours. When I saw the patient, she was sitting up comfortably in bed, conversing normally and in no acute distress. S he was moving her left arm without issue and denies any numbness and tingling in the arm. She denied any other areas of numbness/tingling or weakness. She denies any history of strokelike symptoms like this. 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 Her last dose of Coumadin was yesterday, today's dose was held for the dermatology procedure. Vitals in the ED with normal sinus rhythm with heart rate in the 70s, normotensive to borderline hypotensive, afebrile and good oxygen saturations on room air. CBC with hemoglobin 11.8 (at baseline), WBC count 5, platelets 172. BMP with creatinine 0.97 (baseline 0.6-0.9), otherwise benign. INR 2.8 (goal 2.5-3.5). CT brain without contrast unremarkable. CTA head/neck with mild proximal left vertebral artery anomaly but right vertebral artery is main supplier to the basilar system and likely patent, no other abnormality seen. Chest x-ray unremarkable. [facility] evaluated in the ED, NIHSS score of 0, TNK not indicated. Patient will be admitted for further management. Hospital Course: 1. TIA?83-year-old female presented to the hospital for left arm weakness and paresthesias she thinks it may have been due to local anesthesia to her left neck and upper shoulder region to remove 2 basal cell carcinomas however she was concerned and presented to the ER. Initial CT of the brain was negative for stroke, CTA of the head and neck was also unremarkable for any carotid stenosis or large vessel occlusion. Unfortunately she has a cardiac pacemaker in place and we cannot determine whether or not this was safe for MRI so we repeated the CT scan this afternoon which was also unremarkable with no signs of acute stroke. Echo also with an EF of 20% which is at her baseline with stage III diastolic dysfunction and she has a mitral valve replacement. During her hospitalization her NIH has remained a 0 and I discussed with her the plan for possible discharge today she expressed understanding of the risk benefits of going home and would like to go home today. 2. Paroxysmal A-fib, history of mitral valve replacement, chronic diastolic and systolic cardiomyopathy with a history of V. tach status post pacemaker, hypothyroidism are all chronic medical conditions which complicate her care. Her home medications were continued where appropriate Physical Exam Narrative General: Alert, Oriented x3, Cooperative, No apparent distress HEENT: Atraumatic, PERRLA, EOMI, Normocephalic Oral: Moist Mucosa Neck: Supple, No JVD Lungs: Diminished, Normal air movement, No rhonchi, No wheeze, No rales Cardiovascular: Regular rate, Regular Rhythm, Normal S1, Normal S2, no murmurs Abdomen: Soft, Non Tender, Non-Distended, No Hepato-splenomegaly Extremities: No edema, Capillary Refill Less than 3 Seconds Skin: No rashes, No breakdown Musculoskeletal: No Tenderness to Palpation of Joints or Extremities Neurological: No focal neurological deficits, Motor Exam 5/5 strength throughout, Sensory exam intact to light touch and pain Psych/Mental Status: Normal Affect, Appropriate Weight / BMI Weight Weight: 114 lb 3.191 oz Body Mass Index (BMI) 20.9 ABG / Lab / Microbiology Data 12/27/23 06:48 12/27/23 06:48 Laboratory: Laboratory Results - last 24 hr 12/26/23 17:48: WBC 5.9, RBC 3.76 L, Hgb 11.8 L, Hct 37.0, MCV 98.4, MCH 31.4, MCHC 31.9 L, RDW Std Deviation 46.5 H, RDW Coeff of Ana Maria 13.0, Plt Count 172, MPV 10.3, Immature Gran % (Auto) 0.500, Neut % (Auto) 77.0 H, Lymph % (Auto) 9.7 L, [place] % (Auto) 10.6 H, Eos % (Auto) 1.9, Baso % (Auto) 0.3, Absolute Neuts (auto) 4.5, Absolute Lymphs (auto) 0.57 L, Nucleated RBC % 0, Differential Comment SEE COMMENT, Platelet Estimate ADEQUATE, RBC Morphology N CHROM, Anisocytosis RARE, Macrocytosis RARE, PT 29.4 H, INR 2.8, APTT 36.6 H, Sodium 137, Potassium 4.3, Chloride 104, Carbon Dioxide 28.0, Anion Gap 5, BUN 24 H, Creatinine 0.97, Estim Creat Clear Calc 34.76, Est GFR (MDRD) Af Amer 70, Est GFR (MDRD) Non-Af 58 L, BUN/Creatinine Ratio 24.7 H, Glucose 146 H, Hemoglobin A1c 5.9 H, Calcium 8.9, Troponin I High Sens 17 12/26/23 17:53: POC Glucose 134 H 12/27/23 06:48: WBC 3.9 L, RBC 3.26 L, Hgb 10.2 L, Hct 32.5 L, MCV 99.7 H, MCH 31.3, MCHC 31.4 L, RDW Std Deviation 47.9 H, RDW Coeff of Ana Maria 13.1, Plt Count 141 L, MPV 11.3, Sodium 138, Potassium 4.6, Chloride 106, Carbon Dioxide 28.0, Anion Gap 4 L, BUN 28 H, Creatinine 0.75, Estim Creat Clear Calc 40.21, Est GFR (MDRD) Af Amer 96, Est GFR (MDRD) Non-Af 79, BUN/Creatinine Ratio 37.5 H, Glucose 115 H, Calcium 8.6, Triglycerides 62, Cholesterol 143, LDL Cholesterol 58, VLDL Cholesterol 12, HDL Cholesterol 73 Radiography Diagnostic Testing: Radiology Impression Brain CT 12/26/23 17:39 IMPRESSION: 1. No acute intracranial abnormality. 2. Senescent change with small vessel ischemia. 3. ASPECTS score 10. Electronically Signed: Constantino Urrutia MD at 17:56 EDT , ADDENDUM: 12/26/23 3901 IMPRESSION: 1. No acute intracranial abnormality. 2. Senescent change with small vessel ischemia. 3. ASPECTS score 10. N.B. : The above Results were Read Back by Constantino Urrutia MD to Rowdy Coughlin MD, and understanding confirmed on 12/26/2023 17:58:52 (ET). Electronically Signed: Constantino Urrutia MD at 17:56 EDT , Chest X-Ray 12/26/23 17:39 IMPRESSION: No acute findings in the chest. Electronically Signed: Constantino Urrutia MD at 19:12 EDT , Head/Neck CTA 12/26/23 17:40 IMPRESSION: Nonvisualization of the proximal left vertebral artery which is only seen at the skull base. The right vertebral artery the main supplier to the basilar system and is widely patent. No other abnormalities are identified. Electronically Signed: Constantino Urrutia MD at 18:08 EDT , ADDENDUM: 12/26/23 1818 IMPRESSION: Nonvisualization of the proximal left vertebral artery which is only seen at the skull base. The right vertebral artery the main supplier to the basilar system and is widely patent. No other abnormalities are identified. N.B. : The above Results were Read Back by Constantino Urrutia MD to Rowdy Coughlin MD, and understanding confirmed on 12/26/2023 18:11:12 (ET). Electronically Signed: Constantino Urrutia MD at 18:08 EDT , Echocardiogram 12/26/23 18:27 Interpretation Summary The left ventricular ejection fraction is 20 %. Stage 3 diastolic dysfunction. The left atrium is severely enlarged. The right atrium is moderately enlarged. Bubble contrast study is negative for PFO/ASD. Mechanical mitral valve appears to be functioning normally. Mean peak gradient across prosthetic mitral valve 4.1 mmHg Severe (4+) tricuspid valve insufficiency. Right ventricular systolic pressure estimated to be 52 mmHg. Ordering Physician: Ruiz Landers Referring Physician: Romie Landeros Chi Performed By: Shawnee Herrera, JOSE, RVT Brain CT 12/27/23 14:12 IMPRESSION: Stable chronic ischemic and atrophic changes. No acute intracranial abnormality. Electronically Signed: Wilbert Levin MD at 15:00 EDT , ADDENDUM: 12/27/23 1515 IMPRESSION: Stable chronic ischemic and atrophic changes. No acute intracranial abnormality. N.B. : The above Results were Read Back by Wilbert Levin MD to MARK Horne, and understanding confirmed on 12/27/2023 15:08:59 (ET). Electronically Signed: Wilbert Levin MD at 15:00 EDT , D/C Instructions Discharge Diet: Low fat / Low cholesterol Call your doctor if you observe: Fever of 101 or Higher, Shortness of breath, Dizziness, Fainting spells, Swelling in the ankles, Chest pain and Increased palpitations (irregular heartbeat) Meaningful Use Info Meaningful Use Meaningful Use Diagnoses (Choose all that apply): None applicable Ischemic Stroke Statin Dosing Therapy Reference: STATIN DOSE THERAPY REFERENCE: * Patients > 75 years receive moderate or high dose statin therapy. * Patients 75 years or YOUNGER should receive HIGH intensity statin dose unless contraindicated. You will be required to document reason for non-treatment if statin daily dose does not meet guidelines. HIGH DOSE STATIN THERAPY DAILY Atorvastatin > than or = to 40 mg Rosuvastatin > than or = to 20 mg Amlodipine + Atorvastatin > than or = to 2.5/40 mg Ezetimibe + Simvastatin 10/80 mg Simvastatin 80mg Discharge Plan Admission Admit Date/Time: 12/26/23 18:20 Attending Provider: Rd Horne Primary Care Provider: Romie Landeros Chi Consulting Providers: Conrado Cam; Jian Clayton; Ivette Mcdonald; Gudelia Christian; Kasie Thomas; Elías Munson; Cinthya Cope; Tre Allen; Javier Sepulveda; Carolyn Feldman; Berto Preciado; Raegan Trevino; Melvin Sheth; Abelardo Zelaya; Munir Thompson; Marty Ellis; Pankaj Griffin; Eufemia Cerda; Sis Narayanan; Ruiz Landers Discharge Orders/Prescriptions Prescriptions: Continued acetaminophen 650 mg tablet extended release 650 mg PO DAILY PRN (Reason: pain/fever) Patient Comments: TAKE 2 TABLETS BY MOUTH THREE TIMES DAILY cholecalciferol (vitamin D3) 50 mcg (2,000 unit) capsule 50 mcg PO DAILY thyroid (pork) 30 mg tablet 30 mg PO DAILY Patient Comments: TAKE 1 TABLET BY MOUTH ONCE DAILY FOR 30 DAYS furosemide 40 mg tablet 20 mg PO Q OTHER DAY carvedilol 25 mg tablet 25 mg PO BID multivitamin 1 EACH tablet 1 ea PO DAILY Entresto 97-103 mg Tablet 1 tab PO BID tramadol 50 mg tablet 50 mg PO Q12H Patient Comments: TAKE 1 TABLET BY MOUTH TWICE DAILY albuterol sulfate 90 mcg/actuation HFA aerosol inhaler 2 puff INHALATION Q4H PRN (Reason: shortness of breath or wheezing) Patient Comments: INHALE 2 PUFFS BY MOUTH EVERY 4 HOURS NEEDED pravastatin 20 mg tablet 20 mg PO QHS Qty: 90 3RF primidone 50 mg tablet 50 mg PO BID Qty: 60 3RF warfarin 5 mg tablet 7.5 mg PO DAILY Qty: 135 3RF Protocol: Dose Management Condition: Friday Dose/Route: 5 mg Instruction: 1 x 5 mg tablet Condition: Friday Dose/Route: 7.5 mg Instruction: 1.5 x 5 mg tablets Condition: Friday Dose/Route: 7.5 mg Instruction: 1.5 x 5 mg tablets Condition: Friday Dose/Route: 5 mg Instruction: 1 x 5 mg tablet Condition: Dose/Route: 7.5 mg Instruction: 1.5 x 5 mg tablets Condition: Friday Dose/Route: 7.5 mg Instruction: 1.5 x 5 mg tablets Condition: Friday Dose/Route: 7.5 mg Instruction: 1.5 x 5 mg tablets Protocol Text: Adjustment Start Date: Friday12/05/23 INR Value: 1.9 INR Date: 12/05/23 Recheck Date: 12/12/23 Rx Instructions: 5 mg orally take one and one half tab (7.5mg) by mouth x7 days a Referrals / Follow Up: Romie Landeros Chi, MD [Primary Care Provider] - Within 1 Week Disposition Disposition (needs filled in before D/C Order can be placed): Home, Self Care Charges/Coding Visit Charges Inpatient E&M: 49630 Disch Hosp >30min
--- NOTE | 2023-12-27 15:34 | CASEMGMT ---
Patient has order for discharge. RN CM in to discuss needs at discharge. Patient denies needs or help at discharge. Patient states she is active with [facility]. Patient had no furhter questions or concerns.
== END 2023-12-27 15:20 | disposition home or self-care (01) ==
LOC: ED 18:13 → PCU 18:38
PROVIDERS: Admitting Provider Hospitalist; Emergency Provider Emergency Medicine; PCP Family Medicine Geriatric Medicine; Visit Provider Family Medicine
DX: G45.9 Transient cerebral ischemic attack, unspecified (principal); I11.0 Hypertensive heart disease with heart failure; I50.22 Chronic systolic (congestive) heart failure; I48.0 Paroxysmal atrial fibrillation; I48.92 Unspecified atrial flutter; I42.0 Dilated cardiomyopathy; E78.00 Pure hypercholesterolemia, unspecified; M79.7 Fibromyalgia; R20.0 Anesthesia of skin; C44.90 Unspecified malignant neoplasm of skin, unspecified; Z95.810 Presence of automatic (implantable) cardiac defibrillator; Z79.01 Long term (current) use of anticoagulants; K21.9 Gastro-esophageal reflux disease without esophagitis; Z79.899 Other long term (current) drug therapy; R29.898 Other symptoms and signs involving the musculoskeletal system; Z95.2 Presence of prosthetic heart valve; E03.9 Hypothyroidism, unspecified; Z79.890 Hormone replacement therapy; R29.700 NIHSS score 0
CPT/HCPCS: 70450; 70496; 70498; 71045; 80048; 80061; 82962; 83036; 84484; 85025; 85027; 85610; 85730; 92523; 92610; 93005; 93306; 94762; 96105; 96374; 97162; 97166; 97802; 99221; 99285; Q9967; A4216; G0378; J2405

== ENCOUNTER 2024-01-09 14:17 | Outpatient (RCR) | payer MEDICARE, OTHER, SELFPAY ==
[2023-12-16 22:26] VITALS: BMI 22.4
[2024-01-09 16:16] LABS: INR Fingerstick 2.3; Prothrombin Time Fingerstick 23.4 SEC (11.7-14.9)
== END 2024-01-16 18:00 | disposition home or self-care (01) ==
LOC: MTLAB 14:17
PROVIDERS: Family Provider Family Medicine Geriatric Medicine; PCP Family Medicine Geriatric Medicine; Referring Provider Nurse Practitioner Gerontology; Visit Provider Nurse Practitioner Gerontology
DX: I48.0 Paroxysmal atrial fibrillation (principal); Z79.01 Long term (current) use of anticoagulants
CPT/HCPCS: 36416; 85610

== ENCOUNTER 2024-01-23 14:40 | Outpatient (RCR) | payer MEDICARE, OTHER, SELFPAY ==
[2024-01-19 08:20] VITALS: BMI 22.4
[2024-01-26 15:59] LABS: INR Fingerstick 2.7; Prothrombin Time Fingerstick 27.2 SEC (11.7-14.9)
== END 2024-01-23 18:00 | disposition home or self-care (01) ==
LOC: MTLAB 14:40
PROVIDERS: Family Provider Family Medicine Geriatric Medicine; PCP Family Medicine Geriatric Medicine; Referring Provider Nurse Practitioner Gerontology; Visit Provider Nurse Practitioner Gerontology
DX: I48.0 Paroxysmal atrial fibrillation (principal); Z79.01 Long term (current) use of anticoagulants
CPT/HCPCS: 36416; 85610

== ENCOUNTER 2024-02-17 15:05 | Outpatient (RCR) | payer MEDICARE, OTHER, SELFPAY ==
[2024-02-16 04:18] VITALS: BMI 22.4
[2024-02-17 15:16] LABS: INR Fingerstick 3.1; Prothrombin Time Fingerstick 30.7 SEC (11.7-14.9)
== END 2024-03-17 18:00 | disposition home or self-care (01) ==
LOC: MTLAB 15:05
PROVIDERS: Family Provider Family Medicine Geriatric Medicine; PCP Family Medicine Geriatric Medicine; Referring Provider Nurse Practitioner Gerontology; Visit Provider Nurse Practitioner Gerontology
DX: I48.0 Paroxysmal atrial fibrillation (principal); Z79.01 Long term (current) use of anticoagulants
CPT/HCPCS: 36416; 85610

== ENCOUNTER → 2024-03-19 | Outpatient (CLI) | payer MEDICARE, OTHER, SELFPAY ==
--- NOTE | 2024-03-19 09:55 | RAD_ITS ---
STUDY: X-RAY - ESOPHAGUS (BARIUM SWALLOW) WITH FLUOROSCOPY REASON FOR EXAM: Female, 83 years old. DYSPHAGIA TECHNIQUE: AP fluoroscopic images view(s) of the esophagus were obtained following swallowing of barium. FLUOROSCOPY TIME (if supplied): (65 seconds) minutes/seconds. 4.51 mGy. COMPARISON: Comparison is made with prior study dated November 16, 2018. FINDINGS: There is no demonstrated esophageal foreign body. There is no demonstrated stricture or mucosal abnormality. Normal gastroesophageal junction, without a demonstrated hiatal hernia. The patient ingested a 12 mm tablet of barium. The tablet is trapped in the distal portion of the esophagus. Correlation with endoscopy is recommended. There is atherosclerotic calcification of the aortic arch with tortuosity of the descending aorta. Normal visualized pulmonary parenchyma. There are diffuse degenerative changes of the visualized thoracic spine. RAD/Esophagus Dual Contrast IMPRESSION: The ingested 12 mm tablet of barium is trapped in the distal portion of the esophagus. Endoscopic correlation recommended. Electronically Signed: Aman Real MD at 15:02 EDT ,
== END | disposition home or self-care (01) ==
LOC: RAD 09:42
PROVIDERS: PCP Family Medicine Geriatric Medicine; Referring Provider Family Medicine Geriatric Medicine; Visit Provider Family Medicine Geriatric Medicine
DX: R13.10 Dysphagia, unspecified (principal)
CPT/HCPCS: 74221

== ENCOUNTER 2024-04-15 14:19 | Outpatient (RCR) | payer MEDICARE, OTHER, SELFPAY ==
[2024-03-17 23:11] VITALS: BMI 22.4
[2024-03-19 10:40] LABS: INR Fingerstick 1.8; Prothrombin Time Fingerstick 19.5 SEC (11.7-14.9)
[2024-03-25 14:49] LABS: INR Fingerstick 1.8; Prothrombin Time Fingerstick 19.2 SEC (11.7-14.9)
[2024-03-29 14:36] LABS: INR Fingerstick 2.6
[2024-04-15 14:29] LABS: Prothrombin Time Fingerstick 20.6 SEC (11.7-14.9)
== END 2024-04-15 18:00 | disposition home or self-care (01) ==
LOC: MTLAB 14:19
PROVIDERS: Family Provider Family Medicine Geriatric Medicine; PCP Family Medicine Geriatric Medicine; Referring Provider Nurse Practitioner Gerontology; Visit Provider Nurse Practitioner Gerontology
DX: I48.0 Paroxysmal atrial fibrillation (principal); Z79.01 Long term (current) use of anticoagulants
CPT/HCPCS: 36416; 85610

== ENCOUNTER 2024-05-07 14:19 | Outpatient (RCR) | payer MEDICARE, OTHER, SELFPAY ==
[2024-04-17 21:01] VITALS: BMI 22.4
[2024-04-22 17:43] LABS: International Normalized Ratio 2.3; Prothrombin Time (Protime)PT. 25.2 SECONDS (11.7-14.9)
[2024-04-29 15:03] LABS: INR Fingerstick 2.3; Prothrombin Time Fingerstick 23.4 SEC (11.7-14.9)
[2024-05-10 13:04] LABS: INR Fingerstick 2.6; Prothrombin Time Fingerstick 26.7 SEC (11.7-14.9)
== END 2024-05-07 18:00 | disposition home or self-care (01) ==
LOC: MTLAB 14:19
PROVIDERS: Family Provider Family Medicine Geriatric Medicine; PCP Family Medicine Geriatric Medicine; Referring Provider Nurse Practitioner Gerontology; Visit Provider Nurse Practitioner Gerontology
DX: Z79.01 Long term (current) use of anticoagulants; Z98.890 Other specified postprocedural states; Z95.2 Presence of prosthetic heart valve; I48.92 Unspecified atrial flutter
CPT/HCPCS: 36415; 36416; 85610

== ENCOUNTER 2024-06-15 14:20 | Outpatient (RCR) | payer MEDICARE, OTHER, SELFPAY ==
[2024-05-18 04:48] VITALS: BMI 22.4
[2024-05-24 18:13] LABS: Prothrombin Time (Protime)PT. 41.7 SECONDS (11.7-14.9)
[2024-05-24 18:20] LABS: International Normalized Ratio 4.4
[2024-05-25 08:53] LABS: Prothrombin Time Fingerstick 38.7 SEC (11.7-14.9)
[2024-05-31 14:27] LABS: INR Fingerstick 3.3; Prothrombin Time Fingerstick 32.6 SEC (11.7-14.9)
[2024-06-15 14:28] LABS: INR Fingerstick 2.6; Prothrombin Time Fingerstick 26.5 SEC (11.7-14.9)
== END 2024-06-15 18:00 | disposition home or self-care (01) ==
LOC: MTLAB 14:20
PROVIDERS: Family Provider Family Medicine Geriatric Medicine; PCP Family Medicine Geriatric Medicine; Referring Provider Nurse Practitioner Gerontology; Visit Provider Nurse Practitioner Gerontology
DX: I48.92 Unspecified atrial flutter (principal); Z79.01 Long term (current) use of anticoagulants; Z98.890 Other specified postprocedural states; Z95.2 Presence of prosthetic heart valve
CPT/HCPCS: 36415; 36416; 85610

== ENCOUNTER → 2024-06-18 | Outpatient (CLI) | payer MEDICARE, OTHER, SELFPAY ==
[2024-06-18 12:30] LABS: Absolute Lymphocyte Count 0.54 X10^3/uL (0.83-4.51); Absolute Neutrophil Count 4.3 X10^3/uL (2.0-7.7); Basophil# 0.02 X10^3/uL; Basophil% 0.4 % (0-1); Eosinophil# 0.08 X10^3/uL; Eosinophils% 1.5 % (0-5); Hematocrit 35.8 % (37-47); Hemoglobin 11.4 g/dL (12.0-15.0); Lymphocyte # 0.54 X10^3/ul (0.83-4.51); Lymphocyte % 9.9 % (19-41); Mean Corp Hgb Conc 31.8 g/dL (32-36); Mean Corpuscular Hgb 31.2 pg (27.0-32.0); Mean Corpuscular Volume 98.1 fL (81-99); Mean Platelet Vol. 11.4 fl (6.2-12.0); Monocyte# 0.52 X10^3/uL; Monocyte% 9.6 % (0-10); NRBC Flagged by Analyzer 0 % (0-5); Neutrophil # 4.26 X10^3/uL (2.7-7.7); Neutrophil % 78.4 % (47-70); POSITIVE DIFFERENTIAL YES; Platelet Count 108 K/mm3 (150-450); RBC Distribution Width CV 13.4 % (11.6-14.6); RBC Distribution Width SD 48.6 fl (35.1-43.9); Red Blood Count 3.65 M/mm3 (4.2-5.4); White Blood Count 5.4 K/mm3 (4.4-11.0)
[2024-06-18 13:13] LABS: ALB/GLOB Ratio 1.5 RATIO (0.9-2.4); AST(SGOT) 24 U/L (15-37); Alanine Aminotransfer ALT/SGPT 30 U/L (13-56); Albumin, Serum 3.7 g/dL (3.2-5.0); Alkaline Phosphatase 97 U/L (45-117); Anion Gap 5 (5-15); BUN 26 mg/dL (7-18); BUN/Creat Ratio 33.1 RATIO (10-20); Calcium,Total 8.8 mg/dL (8.5-10.1); Chloride 104 mmol/L (98-107); Creatinine, Serum 0.78 mg/dL (0.55-1.02); EST Glomerular Filtration Rate 74 mL/min (>60); Est Glom Filt Rate - Afr Amer 90 mL/min (>60); Globulin 2.5 g/dL (2.2-4.2); Glucose 155 mg/dL (74-106); Potassium 4.6 mmol/L (3.5-5.1); Protein, Total 6.2 g/dL (6.4-8.2); Sodium Level 136 mmol/L (136-145)
[2024-06-18 14:08] LABS: Vitamin D,25 Hydroxy 68.9 ng/mL
== END | disposition home or self-care (01) ==
LOC: POLAB3 11:37
PROVIDERS: PCP Family Medicine Geriatric Medicine; Referring Provider Family Medicine Geriatric Medicine; Visit Provider Family Medicine Geriatric Medicine
DX: I10 Essential (primary) hypertension (principal); E55.9 Vitamin D deficiency, unspecified
CPT/HCPCS: 36415; 80053; 82306; 84443; 85025

== ENCOUNTER 2024-07-13 14:29 | Outpatient (RCR) | payer MEDICARE, OTHER, SELFPAY ==
[2024-06-17 21:03] VITALS: BMI 22.4
[2024-07-13 14:37] LABS: INR Fingerstick 2.7; Prothrombin Time Fingerstick 28.4 SEC (11.7-14.9)
== END 2024-07-17 18:00 | disposition home or self-care (01) ==
LOC: MTLAB 14:29
PROVIDERS: Family Provider Family Medicine Geriatric Medicine; PCP Family Medicine Geriatric Medicine; Referring Provider Nurse Practitioner Gerontology; Visit Provider Nurse Practitioner Gerontology
DX: I48.0 Paroxysmal atrial fibrillation (principal); Z79.01 Long term (current) use of anticoagulants
CPT/HCPCS: 36416; 85610

== ENCOUNTER 2024-08-06 05:30 | Day surgery (SDC) | payer MEDICARE, OTHER, SELFPAY ==
--- NOTE | 2024-08-05 00:46 | PAT.ANESEVAL ---
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 When Was Last Pacemaker Check QUESTION #4 FULL TEXT: You/Your Family Experience fever (hyperthermia) with Anesthesia Last Oral Intake Last Oral intake: Last Oral Intake NPO since Meds taken in AM with sips of water? Meds patient instructed to take am of surgery PONV PONV - fixture fabricator repairer: PONV - fixture fabricator repairer Female Yes 08/04/24 14:14 HX of Motion Sickness No 08/04/24 14:14 HX of N/V After Surgery No 08/04/24 14:14 Non-Smoker Yes 08/04/24 14:14 Duration of Surgery greater No 08/04/24 14:14 than 60 minutes Number of Risk Factors 2 08/04/24 14:14 PONV Score Moderate Risk 08/04/24 14:14 Height & Weight Height & Weight: Anesthesia: Height & Weight Height 5 ft 1.81 in 12/27/23 10:46 Respiratory Assessment Respiratory Assessment - fixture fabricator repairer: Respiratory Tract Infection Hx - fixture fabricator repairer Hx Respiratory Tract Infection No: NASAL DRIP 08/04/24 14:14 STOP Sleep Apnea STOP Sleep Apnea - fixture fabricator repairer: STOP Sleep Apnea - fixture fabricator repairer Hx Hypertension Yes: CONTROLLED WITH MED 08/04/24 14:14 Hx Sleep Apnea No 08/04/24 14:14 CPAP BIPAP Do you snore loudly (louder No 08/04/24 14:14 than talking or can be heard Do you often feel tired/ Yes 08/04/24 14:14 fatigued/ sleepy during daytime? Has anyone observed you stop No 08/04/24 14:14 breathing during sleep? STOP Results Positive 08/04/24 14:14 QUESTION #5 FULL TEXT : Do you snore loudly (louder than talking or can be heard through closed doors)? 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 Specify any problems Hx of Preganancy in last 3 No 08/04/24 14:14 Months Nurse Filling Out Transfusion DSCHRIBER 08/04/24 14:14 & Questions: Date: 08/04/24 08/04/24 14:14 Time: 14:17 08/04/24 14:14 Patient unable to answer at this time (ie. confused, unrespo /Reproduction History /Reproductive History - fixture fabricator repairer: /Reproductive Hx- fixture fabricator repairer Hx Now No 08/04/24 14:14 Gestational Age (in weeks): EDC: Hx Hx Para Hx Section SAB No 08/04/24 14:14 [facility] Medical History (Updated 08/04/24 @ 14:25 by Kalyani Hernandez) History of Mohs micrographic surgery for skin cancer Back pain Nausea Essential tremor Breast implant capsular contracture Breast implant leak Chronic lumbar radiculopathy Inflammatory arthropathy Lumbar spinal stenosis Gastritis Loss of hearing Wears glasses Cancer Anxiety Walker as ambulation aid Thyroid disease Arthritis Bladder disease High cholesterol Gastric reflux Non-smoker Shortness of breath on exertion Leg cramps History of pain when walking History of echocardiogram History of stress test Hypertension History of CHF (congestive heart failure) Cardiology follow-up encounter History of irregular heartbeat Acid reflux Melanoma Essential tremor Essential hypertension Paroxysmal atrial flutter Paroxysmal atrial fibrillation Hypothyroidism Fibromyalgia History of breast cancer Atrial dysrhythmia Ventricular tachycardia Chronic systolic congestive heart failure Dilated cardiomyopathy 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 HLD (hyperlipidemia) History of mitral valve disorder History of esophageal reflux Anxiety states Home Medications ?Medication ?Instructions ?Recorded ?Last Taken ?Type multivitamin 1 ea PO DAILY supplement 08/01/17 09/14/23 History cholecalciferol (vitamin D3) 50 50 mcg PO DAILY vitamin 01/24/21 09/14/23 History mcg (2,000 unit) capsule thyroid (pork) 30 mg tablet 30 mg PO DAILY thyroid 01/29/21 09/14/23 History sacubitril 97 mg-valsartan 103 mg 1 tab PO BID heart failure 05/07/21 09/15/23 History tablet (Entresto) pravastatin 20 mg tablet 20 mg PO QHS cholesterol #90 tabs 08/26/23 09/14/23 Rx primidone 50 mg tablet 50 mg PO BID TREMORS #60 tabs 09/04/23 09/14/23 Rx tramadol 50 mg tablet 50 mg PO Q12H pain 09/15/23 09/14/23 History carvedilol 25 mg tablet 25 mg PO BID BP/heart 12/05/23 Unknown History acetaminophen 500 mg tablet 500 mg PO TID 08/04/24 Unknown History (Tylenol Extra Strength) furosemide 40 mg tablet 40 mg PO DAILY 08/04/24 Unknown History warfarin 5 mg tablet 7.5 mg PO MOWEFR blood thinner 08/04/24 08/03/24 History warfarin 5 mg tablet 10 mg PO SUTUTHSA 08/04/24 08/03/24 History Allergy/AdvReac Type Severity Reaction Status Date / Time HERMILO Inhibitors Allergy Unknown Verified 08/04/24 14:06 amiodarone Allergy Unknown Verified 08/04/24 14:06 Iodinated Contrast Media (CT) Allergy Nausea/Vom/ Verified 08/04/24 14:06 Diarrhea levothyroxine AdvReac Unknown Nausea Verified 08/04/24 14:06 levothyroxine sodium (From AdvReac Unknown Nausea Verified 08/04/24 14:06 Unithroid) Family History Father Hypertension Cancer Mother Cancer Hypertension Other History of mitral valve replacement Surgical History (Updated 08/04/24 @ 14:25 by Kalyani Hernandez) History of esophagogastroduodenoscopy (EGD) Presence of double chamber implantable cardioverter-defibrillator (ICD) History of cardiac catheterization Hx of mitral valve repair History of local excision of skin lesion History of radiofrequency ablation procedure for cardiac arrhythmia History of breast implant History of tonsillectomy and adenoidectomy History of knee surgery History of mastectomy Presence of implantable cardioverter-defibrillator (ICD) History of mitral valve replacement (~06/1997) Social History Smoking Status: Never smoker alcohol intake: never caffeine: No additional social history: pt on coumadin pt does not take aspirin, does not take ibuprofen, denies vaping or edibles. Audit: Pertinent Findings Pertinent Findings EKG Perinent findings: December 26, 2023. Ventricular paced rhythm. Echo (EF%) pertinent findings: December 27, 2023. Severe global left ventricular systolic dysfunction. Left ventricular ejection fraction is 20%. Stage III diastolic dysfunction. Right ventricular systolic pressure is 52 mmHg. No aortic stenosis is seen. Consult pertinent findings: July 05, 2024. Sharon [employer]. 1. paroxysmal atrial flutter last device report on May 03, 2024 showed 155 episodes of atrial tachycardia and atrial fibrillation. Patient is to continue warfarin for CVA a protection. Continue carvedilol for rate control. #2 chronic systolic congestive heart failure. Last echo showed ejection fraction 20%. Patient is to increase her Lasix to 20 mg to assist with shortness of breath. Patient is to continue carvedilol and Entresto. #3 history of mitral valve replacement. Last echo of December 2023 shows the mechanical valve is functioning normally. #4 ventricular tachycardia monitored by her ICD interrogations. Patient is to continue carvedilol. #5 implantable ICD. Device is functioning appropriately. #6 essential hypertension. Is well-controlled. Recommendation Anesthesia Recommendation Anesthesia recommendation: OPTIMIZED for anesthesia
[2024-08-06] VITALS (7 sets, daily range): BP systolic 90–125; BP diastolic 39–56; PULSE 70–82; RESP 16–18; TEMP 36.7–37.2; O2SAT 92–100; BMI 20.2
--- NOTE | 2024-08-06 | ESO_PTH ---
PATIENT: JAMES BURK LOC: EN U#:[id number] AGE/SX: 83/F ROOM: RE08/06/[address]: Dr. Chilango Gould DO : 1940 BED: DIS: 08/06/2024 SPEC #: [id number] RECD: 08/06/24 08:43 STATUS: THERESA REQ #: [id number] YESSENIA: 08/06/24 00:[address]: Chilango Gould DEPT: SURGICAL PATHOLOGY RECD BY: Nicholas Segura ENTERED: 08/06/24 11:05 SP TYPE: SHANNA HUGHES DR: Dr. Romie Landeros MD Tissues: Esophagus, NOS Procedures: Surgery Specimen Level IV HEADER OPERATION: EGD PRE-OP DIAGNOSIS: Dysphagia TISSUE SUBMITTED: Random esophagus biopsy MICROSCOPIC DIAGNOSIS Random esophagus biopsy: Fragments of squamous epithelium with superficial denudation of epithelium and superficial acute inflammation. See comment. ALEXYS 08/09/2024 COMMENT Special stain for fungi is negative for organisms; matched control is appropriate. Few fragments of calcified material adherent to epithelium are also noted. Correlation with clinical, endoscopic findings and appropriate follow up are necessary. MICROSCOPIC DESCRIPTION Slides are reviewed. GROSS DESCRIPTION Received in fixative is one container labeled with the patient's name and designated Random esophagus biopsy. The specimen consists of multiple irregular fragments of light lim soft tissue that in aggregate measure 0.1 x 0.5 x 2.0 cm. The specimen is totally submitted in one cassette. 08/06/2024 TC:2 CPT:78037, 55675
--- NOTE | 2024-08-06 06:45 | PCM.PRE.AN2 ---
ASA Classification* ASA Classification ASA Classification: 3 Assessment & Plan Anesthesia* Anesthesia Assessment Anesthesia Assessment: Discussed sedation and/or anesthesia options, risks, benefits, and alternatives with patient/parents/legal guardian/POA. Questions invited. The patient/parents/legal guardian/POA seems to understand and agrees to proceed with anesthesia plan. Reviewed the physical assessment, medical history, allergy history and patient home medications list prior to surgery/procedure/anesthetic and documented any changes. Performed airway and anesthesia risk assessments. Anesthesia Type Anesthesia Type: MAC History Source History Obtained from:: Patient and Chart Anesthesia Focused Assessment* Temperature: 98.6 F Pulse Rate: 82 Blood Pressure: 125/56 Respiratory Rate: 16 Pulse Ox: 100 Airway Assessment Mouth opens: >3 cm Mallampati Score: II Focused Labs Anesthesia Preop lab: CBC WBC 5.4 K/mm3 (4.4-11.0) 06/18/24 11:42 RBC 3.65 M/mm3 (4.2-5.4) L 06/18/24 11:42 Hgb 11.4 g/dL (12.0-15.0) L 06/18/24 11:42 Hct 35.8 % (37-47) L 06/18/24 11:42 Plt Count 108 K/mm3 (150-450) L 06/18/24 11:42 CHEMISTRY Potassium 4.6 mmol/L (3.5-5.1) 06/18/24 11:42 Sodium 136 mmol/L (136-145) 06/18/24 11:42 Magnesium 1.9 mg/dL (1.6-2.6) 01/17/20 10:23 BUN 26 mg/dL (7-18) H 06/18/24 11:42 Creatinine 0.78 mg/dL (0.55-1.02) 06/18/24 11:42 Glucose 155 mg/dL (74-106) H 06/18/24 11:42 POC Glucose 134 mg/dL (74-106) H 12/26/23 17:53 TSH 2.560 uIU/mL (0.358-3.740) 06/18/24 11:42 COAG PT 41.7 SECONDS (11.7-14.9) H 05/24/24 15:20 INR 2.6 05/07/24 14:30 Pre-Assessment Diagnosis/Proposed Procedure Planned Operative Procedure(s): EGD Anesthesia History Anesthesia History - showcase maker: Anesthesia History - showcase maker Hx Hospitalization Yes: RSV 10/202308/04/24 14:14 Any Problems With Anesthesia No 08/04/24 14:14 Cholinesterase deficiency No 08/04/24 14:14 You/Your Family Experience No 08/04/24 14:14 fever (hyperthermia) with Relationship Recent Exposure to Contagious No 08/06/24 06:01 Disease Does patient have nerve No 08/04/24 14:14 stimulator Patient instructed to have device shut off --Does patient have Pacemaker Yes 08/06/24 06:01 or ICD? When Was Last Pacemaker Check QUESTION #4 FULL TEXT: You/Your Family Experience fever (hyperthermia) with Anesthesia Last Oral Intake Last Oral intake: Last Oral Intake NPO since Meds taken in AM with sips of water? Meds patient instructed to take am of surgery PONV PONV - showcase maker: PONV - showcase maker Female Yes 08/04/24 14:14 HX of Motion Sickness No 08/04/24 14:14 HX of N/V After Surgery No 08/04/24 14:14 Non-Smoker Yes 08/04/24 14:14 Duration of Surgery greater No 08/04/24 14:14 than 60 minutes Number of Risk Factors 2 08/04/24 14:14 PONV Score Moderate Risk 08/04/24 14:14 Height & Weight Height & Weight: Anesthesia: Height & Weight Height 5 ft 2 in 08/06/24 06:01 Weight: 50.3 kg 08/06/24 06:01 Body Mass Index (BMI) 20.2 08/06/24 06:01 Respiratory Assessment Respiratory Assessment - showcase maker: Respiratory Tract Infection Hx - showcase maker Hx Respiratory Tract Infection No: NASAL DRIP 08/04/24 14:14 STOP Sleep Apnea STOP Sleep Apnea - showcase maker: STOP Sleep Apnea - showcase maker Hx Hypertension Yes: CONTROLLED WITH MED 08/04/24 14:14 Hx Sleep Apnea No 08/04/24 14:14 CPAP BIPAP Do you snore loudly (louder No 08/04/24 14:14 than talking or can be heard Do you often feel tired/ Yes 08/04/24 14:14 fatigued/ sleepy during daytime? Has anyone observed you stop No 08/04/24 14:14 breathing during sleep? STOP Results Positive 08/04/24 14:14 QUESTION #5 FULL TEXT : Do you snore loudly (louder than talking or can be heard through closed doors)? Tobacco Use History Tobacco Use History - showcase maker: Tobacco Use History - showcase maker Tobacco Use Non-smoker 12/27/23 15:24 Smoking Status Never smoker 08/04/24 14:14 Hx Tobacco Use No 08/04/24 14:14 Years Smoking Packs Smoked per Day Smoking Cessation Date was within the last 15 years Hx Smoking Cessation Date Hx Smoking Cessation No 08/04/24 14:14 Counseling Hematologic Medial History Hematologic Hx - showcase maker: Hematologic Medical Hx - vest backer Hx of Blood Transfusion No 08/04/24 14:14 Hx of Transfusion in last 3 No 08/04/24 14:14 Months Date of Last Transfusion (if within last 3 months) Ever experience any problems No 08/04/24 14:14 with transfusion(s)? Specify any problems Hx of Preganancy in last 3 No 08/04/24 14:14 Months Nurse Filling Out Transfusion DSCHRIBER 08/04/24 14:14 & Questions: Date: 08/04/24 08/04/24 14:14 Time: 14:17 08/04/24 14:14 Patient unable to answer at this time (ie. confused, unrespo /Reproduction History /Reproductive History - showcase maker: /Reproductive Hx- showcase maker Hx Now No 08/04/24 14:14 Gestational Age (in weeks): EDC: Hx Hx Para Hx Section SAB No 08/04/24 14:14 PFSH Medical History History of Mohs micrographic surgery for skin cancer Back pain Nausea Essential tremor Breast implant capsular contracture Breast implant leak Chronic lumbar radiculopathy Inflammatory arthropathy Lumbar spinal stenosis Gastritis Loss of hearing Wears glasses Cancer Anxiety Walker as ambulation aid Thyroid disease Arthritis Bladder disease High cholesterol Gastric reflux Non-smoker Shortness of breath on exertion Leg cramps History of pain when walking History of echocardiogram History of stress test Hypertension History of CHF (congestive heart failure) Cardiology follow-up encounter History of irregular heartbeat Acid reflux Melanoma Essential tremor Essential hypertension Paroxysmal atrial flutter Paroxysmal atrial fibrillation Hypothyroidism Fibromyalgia History of breast cancer Atrial dysrhythmia Ventricular tachycardia Chronic systolic congestive heart failure Dilated cardiomyopathy 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 tachycardia penitentiary current use of anticoagulant HLD (hyperlipidemia) History of mitral valve disorder History of esophageal reflux Anxiety states Home Medications ?Medication ?Instructions ?Recorded ?Last Taken ?Type multivitamin 1 ea PO DAILY supplement 08/01/17 09/14/23 History cholecalciferol (vitamin D3) 50 50 mcg PO DAILY vitamin 01/24/21 09/14/23 History mcg (2,000 unit) capsule thyroid (pork) 30 mg tablet 30 mg PO DAILY thyroid 01/29/21 08/06/24 History sacubitril 97 mg-valsartan 103 mg 1 tab PO BID heart failure 05/07/21 09/15/23 History tablet (Entresto) pravastatin 20 mg tablet 20 mg PO QHS cholesterol #90 tabs 08/26/23 09/14/23 Rx primidone 50 mg tablet 50 mg PO BID TREMORS #60 tabs 09/04/23 08/06/24 Rx tramadol 50 mg tablet 50 mg PO Q12H pain 09/15/23 09/14/23 History carvedilol 25 mg tablet 25 mg PO BID BP/heart 12/05/23 08/06/24 History acetaminophen 500 mg tablet 500 mg PO TID 08/04/24 Unknown History (Tylenol Extra Strength) furosemide 40 mg tablet 40 mg PO DAILY 08/04/24 Unknown History warfarin 5 mg tablet 7.5 mg PO MOWEFR blood thinner 08/04/24 Unknown History warfarin 5 mg tablet 10 mg PO SUTUTHSA 08/04/24 08/05/24 History Allergy/AdvReac Type Severity Reaction Status Date / Time HERMILO Inhibitors Allergy Unknown Verified 08/06/24 06:00 amiodarone Allergy Unknown Verified 08/06/24 06:00 Iodinated Contrast Media (CT) Allergy Nausea/Vom/ Verified 08/06/24 06:00 Diarrhea levothyroxine AdvReac Unknown Nausea Verified 08/06/24 06:00 levothyroxine sodium (From AdvReac Unknown Nausea Verified 08/06/24 06:00 Unithroid) Family History Father Hypertension Cancer Mother Cancer Hypertension Other History of mitral valve replacement Surgical History History of esophagogastroduodenoscopy (EGD) Presence of double chamber implantable cardioverter-defibrillator (ICD) History of cardiac catheterization Hx of mitral valve repair History of local excision of skin lesion History of radiofrequency ablation procedure for cardiac arrhythmia History of breast implant History of tonsillectomy and adenoidectomy History of knee surgery History of mastectomy Presence of implantable cardioverter-defibrillator (ICD) History of mitral valve replacement (~06/1997) Social History Smoking Status: Never smoker alcohol intake: never caffeine: No additional social history: pt on coumadin pt does not take aspirin, does not take ibuprofen, denies vaping or edibles. Review of Systems (Anesthesia) ROS Narrative System reviewed and no additional complaints, except as documented.
--- NOTE | 2024-08-06 07:05 | HP.PCM_ITS ---
HPI - General General Date of Admission: 08/06/24 Date of Service: 08/06/24 Chief Complaint: Dysphagia HPI Narrative JAMES BURK, is a 83 F who presents to the office today for evaluation of esophageal dysphagia. She has a history of non-CAD related cardiomyopathy, chronic systolic CHF, status post mitral valve replacement with a [place] #27 mechanical mitral valve apparatus, paroxysmal atrial dysrhythmias (fibrillation/flutter), ventricular tachycardia, status post ICD placement, hyperlipidemia, and hypertension. It is noted she presents today in a wheelchair as she is becoming more frail and fragile. She underwent barium swallow with capsule study : There is no demonstrated esophageal foreign body. There is no demonstrated stricture or mucosal abnormality. Normal gastroesophageal junction, without a demonstrated hiatal hernia. The patient ingested a 12 mm tablet of barium. The tablet is trapped in the distal portion of the esophagus. Correlation with endoscopy is recommended. She underwent a CT scan of the brain without contrast for auto mental status and possible CVA back in December 2023 : FINDINGS: PARENCHYMA: There is no acute bleed or infarct. There are stable chronic ischemic and atrophic changes. VENTRICLES: There is no hydrocephalus. MASTOID AIR CELLS AND PARANASAL SINUSES: The visualized paranasal sinuses are clear. The mastoid air cells are clear. BONES: There is no skull fracture. SOFT TISSUES: The visualized soft tissues are within normal limits. [facility] Medical History History of Mohs micrographic surgery for skin cancer Back pain Nausea Essential tremor Breast implant capsular contracture Breast implant leak Chronic lumbar radiculopathy Inflammatory arthropathy Lumbar spinal stenosis Gastritis Loss of hearing Wears glasses Cancer Anxiety Walker as ambulation aid Thyroid disease Arthritis Bladder disease High cholesterol Gastric reflux Non-smoker Shortness of breath on exertion Leg cramps History of pain when walking History of echocardiogram History of stress test Hypertension History of CHF (congestive heart failure) Cardiology follow-up encounter History of irregular heartbeat Acid reflux Melanoma Essential tremor Essential hypertension Paroxysmal atrial flutter Paroxysmal atrial fibrillation Hypothyroidism Fibromyalgia History of breast cancer Atrial dysrhythmia Ventricular tachycardia Chronic systolic congestive heart failure Dilated cardiomyopathy 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 tachycardia residential current use of anticoagulant HLD (hyperlipidemia) History of mitral valve disorder History of esophageal reflux Anxiety states Home Medications ?Medication ?Instructions ?Recorded ?Last Taken ?Type multivitamin 1 ea PO DAILY supplement 08/01/17 09/14/23 History cholecalciferol (vitamin D3) 50 50 mcg PO DAILY vitamin 01/24/21 09/14/23 History mcg (2,000 unit) capsule thyroid (pork) 30 mg tablet 30 mg PO DAILY thyroid 01/29/21 08/06/24 History sacubitril 97 mg-valsartan 103 mg 1 tab PO BID heart failure 05/07/21 09/15/23 History tablet (Entresto) pravastatin 20 mg tablet 20 mg PO QHS cholesterol #90 tabs 08/26/23 09/14/23 Rx primidone 50 mg tablet 50 mg PO BID TREMORS #60 tabs 09/04/23 08/06/24 Rx tramadol 50 mg tablet 50 mg PO Q12H pain 09/15/23 09/14/23 History carvedilol 25 mg tablet 25 mg PO BID BP/heart 12/05/23 08/06/24 History acetaminophen 500 mg tablet 500 mg PO TID 08/04/24 Unknown History (Tylenol Extra Strength) furosemide 40 mg tablet 40 mg PO DAILY 08/04/24 Unknown History warfarin 5 mg tablet 7.5 mg PO MOWEFR blood thinner 08/04/24 Unknown History warfarin 5 mg tablet 10 mg PO SUTUTHSA 08/04/24 08/05/24 History Allergy/AdvReac Type Severity Reaction Status Date / Time HERMILO Inhibitors Allergy Unknown Verified 08/06/24 06:00 amiodarone Allergy Unknown Verified 08/06/24 06:00 Iodinated Contrast Media (CT) Allergy Nausea/Vom/ Verified 08/06/24 06:00 Diarrhea levothyroxine AdvReac Unknown Nausea Verified 08/06/24 06:00 levothyroxine sodium (From AdvReac Unknown Nausea Verified 08/06/24 06:00 Unithroid) Family History Father Hypertension Cancer Mother Cancer Hypertension Other History of mitral valve replacement Surgical History History of esophagogastroduodenoscopy (EGD) Presence of double chamber implantable cardioverter-defibrillator (ICD) History of cardiac catheterization Hx of mitral valve repair History of local excision of skin lesion History of radiofrequency ablation procedure for cardiac arrhythmia History of breast implant History of tonsillectomy and adenoidectomy History of knee surgery History of mastectomy Presence of implantable cardioverter-defibrillator (ICD) History of mitral valve replacement (~06/1997) Social History Smoking Status: Never smoker alcohol intake: never caffeine: No additional social history: pt on coumadin pt does not take aspirin, does not take ibuprofen, denies vaping or edibles. ROS Constitutional Constitutional: Denies fatigue, fever(s), poor appetite, weight gain or weight loss Gastrointestinal Gastrointestinal: Denies belching, bloating, change in bowel habits, change in stool character, chewing difficulty, coffee ground emesis, constipation, cramping, diarrhea, dyspepsia, dysphagia, early satiety, excessive flatus, fecal incontinence, heartburn, hematemesis, hematochezia, hemorrhoids, loose stools, melena, nausea, odynophagia, rectal bleeding, tenesmus, vomiting or weight changes Vital Signs Vital Signs Vital Signs: 08/06/24 06:01 08/06/24 06:01 08/06/24 06:45 Temperature 98.6 F 98.6 F Temperature Source Temporal Pulse Rate 82 82 Respiratory Rate 16 16 Respiratory Pattern Normal Blood Pressure 125/56 H 125/56 H Blood Pressure Mean 79 Blood Pressure Source Monitor Blood Pressure Position Semi-Fowlers Blood Pressure Location Right Arm Pulse Ox 100 100 Oxygen Delivery Method Room Air Weight Weight: 110 lb 14.28 oz Body Mass Index (BMI) 20.2 Physical Exam Narrative General: Alert, Oriented x3, Cooperative, No apparent distress HEENT: Atraumatic, PERRLA, EOMI, Normocephalic Oral: Moist Mucosa Neck: Supple, No JVD Cardiovascular: Regular rate, Regular Rhythm, Normal S1, Normal S2, no murmurs Abdomen: Soft, Non Tender, Non-Distended, No Hepato-splenomegaly Const alert, oriented x3, no apparent distress and healthy appearing General Appearance: cooperative GI normal to inspection, nondistended, normoactive bowel sounds, soft to palpation, non-tender and non-distended Percussion: normal to percussion Rectal Exam: deferred Assessment & Plan Assessment/Plan (1) Dysphagia: PLAN: (1) Dysphagia: Status: Acute Plan: 83-year-old with history of non-CAD related cardiomyopathy, chronic systolic CHF, status post mitral valve replacement with a [place] #27 mechanical mitral valve apparatus, paroxysmal atrial dysrhythmias (fibrillation/flutter), ventricular tachycardia, status post ICD placement, hyperlipidemia, and hypertension. She presents with progressive weight loss and worsening esophageal dysphagia to solid foods. She is going to see her meter installer because of an issue with a aorta. I do not know if it is an aortic aneurysm or structural abnormalities such as aortic valve problems. She will need to have cardiac clearance so we can perform an upper endoscopy. I would have her hold her Coumadin prior to the procedure. She would also need antibiotics prior to the procedure. Her barium swallow test did not show any extrinsic compression into the esophagus. On her differential diagnosis does include dysphagia aortic which is a rare cause of dysphagia that occurs in the esophagus when there is an aneurysm compressed against the esophagus or a torturous aorta. This is more common in elderly women who have hypertension, kyphosis and a short stature which she has. She is also seeing a surgeon and regarding getting her left breast implant removed. She has a history of breast cancer in which she underwent mastectomy and radiation to the chest which could also be contributing to her esophageal dysphagia. Recommendations: -Cardiac clearance for upper endoscopy -Consider CT scan of the chest pending cardiac evaluation of her aorta Orders: Orders EGD 08/06/24 R13.10 - Dysphagia, unspecified I have examined the patient and the H&P has been reviewed. There are no clinical changes since date of exam.
--- NOTE | 2024-08-06 07:24 | PCM.POST.ANE ---
Anesthesia: Postop Eval I Current Vital Signs Temperature: 98.1 F Pulse Rate: 76 Blood Pressure: 98/46 Respiratory Rate: 16 Pulse Ox: 95 Oxygen Delivery Method: Room Air Assessment Airway patent: Yes Spontaneous unlabored respirations: Yes Mental status: Asleep nausea: No Vomiting: No Anesthesia Complication: No Fluid Hydration Crystalloid volume administer (ml): 20 Total IV fluid infused: 20 Progress Note Anesthesia document: Postop Eval 1 completed: Yes
--- NOTE | 2024-08-06 07:29 | PCM.POSTANE2 ---
Anesthesia Postop Eval I Sum Postop Eval Completion status Anesthesia document: Postop Eval 1 completed: Yes Anesthesia Postop Eval I Summary Anesthesia Postop Eval I Summary: Anesthesia Postop Eval I: Assessment Summary Airway patent Yes 08/06/24 07:25 [email or web address] Spontaneous unlabored Yes 08/06/24 07:25 [email or web address] respirations Mental status Asleep 08/06/24 07:25 [email or web address] nausea No 08/06/24 07:25 [email or web address] Vomiting No 08/06/24 07:25 [email or web address] Anesthesia Postop Eval I: Fluid Summary Crystalloid volume administer 20 08/06/24 07:25 [email or web address] (ml) Colloids volume administered ( ml) Blood Product volume administered (ml) Total IV fluid infused 20 08/06/24 07:25 [email or web address] Anesthesia Postop Eval I: Summary Notes Anesthesia Complication No 08/06/24 07:25 [email or web address] Anesthesia Complication Comment: Post-operative progress note Anesthesia: Postop Eval II Evaluation Mental status: Awake Pain Level: 0 nausea: No Vomiting: No
--- NOTE | 2024-08-06 07:41 | OP.CCLET_ITS ---
08/06/2024 Romie Landeros MD [address] [place] [address] Re : Upper GI endoscopy procedure for Parvin Ata Dear Dr. Landeros This procedure was performed on Tuesday, August 06, 2024. My impressions and recommendations are as follows: Impressions : - Esophageal mucosal variant. Biopsied. 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 This could be secondary to advanced age along with medication induced injury. - Chronic gastritis. - No gross lesions in the duodenal bulb. Recommendations : - Discharge patient to home. - Resume previous diet. - Continue present medications. - Patient has a contact number available for emergencies. The signs and symptoms of potential delayed complications were discussed with the patient. Return to normal activities tomorrow. Written discharge instructions were provided to the patient. - Resume previous diet. - Continue present medications. - Await pathology results. - Repeat upper endoscopy in 3 months for surveillance. - Corticosteroid medication taken as an oral suspension, is primarily used to treat sloughing esophagitis, along with eliminating offending agents that may be contributing to symptoms and autoimmune workup. - My findings are described in the full procedure note, which is enclosed. If I can be of further assistance, please feel free to contact me at . Sincerely, Chilango Friend, 08/06/2024 7:39:52 AM This report has been signed electronically.
--- NOTE | 2024-08-06 07:41 | OP.EGD_ITS ---
Patient Name: Parvin Berumen Procedure Date: 08/06/2024 6:21 AM Date of : 1940 Age: 83 Procedure: Upper GI endoscopy Indications: Dysphagia Providers: DO Ursula Almodovar MD: Romie Landeros MD Medicines: Monitored Anesthesia Care Patient Profile: This is an 83 year old female. Refer to note in patient chart for documentation of history and physical. Patient has symptoms of dysphagia with both liquids and solids. Complications: No immediate complications. Procedure: Pre-Anesthesia Assessment: - Prior to the procedure, a History and Physical was performed, and patient medications and allergies were reviewed. The patient is competent. The risks and benefits of the procedure and the sedation options and risks were discussed with the patient. All questions were answered and informed consent was obtained. Patient identification and proposed procedure were verified by the physician. Mental Status Examination: normal. Respiratory Examination: clear to auscultation. CV Examination: normal. Prophylactic Antibiotics: The patient does not require prophylactic antibiotics. Prior Anticoagulants: The patient has taken no anticoagulant or antiplatelet agents except for NSAID medication. ASA Grade Assessment: II - A patient with mild systemic disease. After reviewing the risks and benefits, the patient was deemed in satisfactory condition to undergo the procedure. The anesthesia plan was to use monitored anesthesia care (MAC). Immediately prior to administration of medications, the patient was re-assessed for adequacy to receive sedatives. The heart rate, respiratory rate, oxygen saturations, blood pressure, adequacy of pulmonary ventilation, and response to care were monitored throughout the procedure. The physical status of the patient was re-assessed after the procedure. After obtaining informed consent, the endoscope was passed under direct vision. Throughout the procedure, the patient's blood pressure, pulse, and oxygen saturations were monitored continuously. The gastroscope was introduced through the mouth, and advanced to the second part of duodenum. The upper GI endoscopy was accomplished without difficulty. The patient tolerated the procedure well. Scope In: 7:11:53 AM Scope Out: 7:14:32 AM Total Procedure Duration Time 0 hours 2 minutes 39 seconds Findings: Diffuse severe mucosal variance characterized by sloughing was found in the entire esophagus. Biopsies were taken with a cold forceps for histology. Verification of patient identification for the specimen was done. Estimated blood loss was minimal. Mild inflammation characterized by erosions and erythema was found in the entire examined stomach. No gross lesions were noted in the duodenal bulb. Impression: - Esophageal mucosal variant. Biopsied. 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 This could be secondary to advanced age along with medication induced injury. - Chronic gastritis. - No gross lesions in the duodenal bulb. Recommendation: - Discharge patient to home. - Resume previous diet. - Continue present medications. - Patient has a contact number available for emergencies. The signs and symptoms of potential delayed complications were discussed with the patient. Return to normal activities tomorrow. Written discharge instructions were provided to the patient. - Resume previous diet. - Continue present medications. - Await pathology results. - Repeat upper endoscopy in 3 months for surveillance. - Corticosteroid medication taken as an oral suspension, is primarily used to treat sloughing esophagitis, along with eliminating offending agents that may be contributing to symptoms and autoimmune workup. - Procedure Code(s): --- Professional --- 05109, Esophagogastroduodenoscopy, flexible, transoral; with biopsy, single or multiple CPT copyright 2021 [employer]. All rights reserved. The codes documented in this report are preliminary and upon clinical instructor review may be revised to meet current compliance requirements. Chilango Gould DO 08/06/2024 7:39:52 AM This report has been signed electronically. Number of Addenda: 0 Note Initiated On: 08/06/2024 6:21 AM
== END 2024-08-06 08:39 | disposition home or self-care (01) ==
LOC: EN 05:30 → AC 05:33
PROVIDERS: PCP Family Medicine Geriatric Medicine; Referring Provider Family Medicine Geriatric Medicine; Visit Provider Internal Medicine Gastroenterology
PROC: 0DJ08ZZ Inspection of Upper Intestinal Tract, Via Natural or Artificial Opening Endoscopic (ICD-10-PCS; CPT 43235; principal; 2024-08-06 06:25)
DX: K21.00 Gastro-esophageal reflux disease with esophagitis, without bleeding (principal); I11.0 Hypertensive heart disease with heart failure; I50.22 Chronic systolic (congestive) heart failure; I48.0 Paroxysmal atrial fibrillation; K29.50 Unspecified chronic gastritis without bleeding; Z95.2 Presence of prosthetic heart valve; E78.00 Pure hypercholesterolemia, unspecified; E03.9 Hypothyroidism, unspecified; Z79.01 Long term (current) use of anticoagulants; Z79.899 Other long term (current) drug therapy; Z79.890 Hormone replacement therapy; K25.9 Gastric ulcer, unspecified as acute or chronic, without hemorrhage or perforation
CPT/HCPCS: 43239; 88305; A4216; J2405

== ENCOUNTER 2024-09-17 11:28 | Outpatient (RCR) | payer MEDICARE, SELFPAY ==
[2024-07-18 02:07] VITALS: BMI 22.4
[2024-08-19 15:12] LABS: INR Fingerstick 3.2; Prothrombin Time Fingerstick 33.4 SEC (11.7-14.9)
[2024-09-17 11:51] LABS: INR Fingerstick 3.8; Prothrombin Time Fingerstick 37.5 SEC (11.7-14.9)
== END 2024-09-17 18:00 | disposition home or self-care (01) ==
LOC: LAB 11:28
PROVIDERS: Family Provider Family Medicine Geriatric Medicine; PCP Family Medicine Geriatric Medicine; Referring Provider Nurse Practitioner Gerontology; Visit Provider Nurse Practitioner Gerontology
DX: I48.0 Paroxysmal atrial fibrillation (principal); Z79.01 Long term (current) use of anticoagulants
CPT/HCPCS: 36416; 85610

== ENCOUNTER 2024-10-11 10:32 | Outpatient (RCR) | payer MEDICARE, SELFPAY ==
[2024-09-17 20:51] VITALS: BMI 22.4
[2024-10-04 15:00] LABS: INR Fingerstick 5.1; Prothrombin Time Fingerstick 49.4 SEC (11.7-14.9)
[2024-10-04 18:02] LABS: Prothrombin Time (Protime)PT. 54.3 SECONDS (11.7-14.9)
[2024-10-04 18:11] LABS: International Normalized Ratio 5.9
[2024-10-08 15:35] LABS: International Normalized Ratio 1.3; Prothrombin Time (Protime)PT. 16.3 SECONDS (11.7-14.9)
[2024-10-11 12:54] LABS: International Normalized Ratio 2.4
== END 2024-10-15 18:00 | disposition home or self-care (01) ==
LOC: MTLAB 10:32
PROVIDERS: Family Provider Family Medicine Geriatric Medicine; PCP Family Medicine Geriatric Medicine; Referring Provider Nurse Practitioner Gerontology; Visit Provider Nurse Practitioner Gerontology
DX: Z98.890 Other specified postprocedural states (principal); Z79.01 Long term (current) use of anticoagulants; Z95.2 Presence of prosthetic heart valve; I48.92 Unspecified atrial flutter
CPT/HCPCS: 36415; 36416; 85610

== ENCOUNTER 2024-10-26 14:14 | Outpatient (RCR) | payer MEDICARE, SELFPAY ==
[2024-10-16 07:27] VITALS: BMI 22.4
[2024-10-26 17:58] LABS: International Normalized Ratio 2.9; Prothrombin Time (Protime)PT. 30.8 SECONDS (11.7-14.9)
== END 2024-10-26 18:00 | disposition home or self-care (01) ==
LOC: MTLAB 14:14
PROVIDERS: Family Provider Family Medicine Geriatric Medicine; PCP Family Medicine Geriatric Medicine; Referring Provider Nurse Practitioner Gerontology; Visit Provider Nurse Practitioner Gerontology
DX: I48.0 Paroxysmal atrial fibrillation (principal); Z79.01 Long term (current) use of anticoagulants
CPT/HCPCS: 36415; 85610

== ENCOUNTER 2024-11-24 13:50 | Outpatient (RCR) | payer MEDICARE, SELFPAY ==
[2024-11-15 23:09] VITALS: BMI 22.4
[2024-11-24 13:59] LABS: INR Fingerstick 2.6
== END 2024-12-15 18:00 | disposition home or self-care (01) ==
LOC: MTLAB 13:50
PROVIDERS: Family Provider Family Medicine Geriatric Medicine; PCP Family Medicine Geriatric Medicine; Referring Provider Nurse Practitioner Gerontology; Visit Provider Nurse Practitioner Gerontology
DX: I48.0 Paroxysmal atrial fibrillation (principal); Z79.01 Long term (current) use of anticoagulants; Z95.2 Presence of prosthetic heart valve; Z98.890 Other specified postprocedural states
CPT/HCPCS: 36416; 85610

== ENCOUNTER 2024-12-17 12:26 | Outpatient (RCR) | payer MEDICARE, SELFPAY ==
[2024-12-15 22:23] VITALS: BMI 22.4
[2024-12-17 13:08] LABS: Absolute Lymphocyte Count 0.53 X10^3/uL (0.83-4.51); Absolute Neutrophil Count 4.9 X10^3/uL (2.0-7.7); Basophil# 0.02 X10^3/uL; Basophil% 0.3 % (0-1); Eosinophil# 0.07 X10^3/uL; Eosinophils% 1.1 % (0-5); Hematocrit 36.9 % (37-47); Hemoglobin 12.2 g/dL (12.0-15.0); Lymphocyte # 0.53 X10^3/ul (0.83-4.51); Lymphocyte % 8.6 % (19-41); Mean Corp Hgb Conc 33.1 g/dL (32-36); Mean Corpuscular Hgb 31.9 pg (27.0-32.0); Mean Corpuscular Volume 96.3 fL (81-99); Mean Platelet Vol. 10.6 fl (6.2-12.0); Monocyte# 0.57 X10^3/uL; Monocyte% 9.2 % (0-10); NRBC Flagged by Analyzer 0 % (0-5); Neutrophil # 4.94 X10^3/uL (2.7-7.7); Neutrophil % 80.2 % (47-70); POSITIVE DIFFERENTIAL YES; Platelet Count 127 K/mm3 (150-450); RBC Distribution Width SD 46.1 fl (35.1-43.9); Red Blood Count 3.83 M/mm3 (4.2-5.4); White Blood Count 6.2 K/mm3 (4.4-11.0)
[2024-12-17 13:14] LABS: International Normalized Ratio 2.2; Prothrombin Time (Protime)PT. 24.6 SECONDS (11.7-14.9)
[2024-12-17 15:15] LABS: Cholesterol 167 mg/dL (<=200); High Density Lipoprotein 81 mg/dL; Low Density Lipoprotein Calc. 69 mg/dL; Triglycerides 85 mg/dL; Very Low Density Lipoprotein 17 mg/dL (5-40); Vitamin D,25 Hydroxy 85.4 ng/mL (30-100); cholesterol:hdl ratio screen 2.07
[2024-12-17 15:30] LABS: AST(SGOT) 27 U/L (<=31); Alanine Aminotransfer ALT/SGPT 23 U/L (<=34); Albumin, Serum 4.4 g/dL (3.4-4.8); Alkaline Phosphatase 115 U/L (35-104); Anion Gap 11 (5-15); BUN 28 mg/dL (4-19); BUN/Creat Ratio 30.5 RATIO (10-20); Calcium,Total 9.5 mg/dL (7.6-11.0); Carbon Dioxide 26.4 mmol/L (21.0-32.0); Chloride 97 mmol/L (98-108); Creatinine, Serum 0.93 mg/dL (0.70-1.20); EST Glomerular Filtration Rate 61 (>60); Globulin 2.2 g/dL (2.2-4.2); Glucose 146 mg/dL (70-99); Potassium 5.1 mmol/L (3.3-5.1); Protein, Total 6.6 g/dL (5.9-8.4); Sodium Level 134 mmol/L (133-145); Total Bilirubin 0.52 mg/dL (0.00-1.30)
== END 2024-12-17 18:00 | disposition home or self-care (01) ==
LOC: LAB 12:26
PROVIDERS: Family Provider Family Medicine Geriatric Medicine; PCP Family Medicine Geriatric Medicine; Referring Provider Nurse Practitioner Gerontology; Visit Provider Nurse Practitioner Gerontology
DX: I48.0 Paroxysmal atrial fibrillation (principal); Z79.01 Long term (current) use of anticoagulants; Z98.890 Other specified postprocedural states; Z95.2 Presence of prosthetic heart valve; I10 Essential (primary) hypertension; E55.9 Vitamin D deficiency, unspecified; E78.5 Hyperlipidemia, unspecified
CPT/HCPCS: 36415; 80053; 80061; 82306; 84443; 85025; 85610

== ENCOUNTER 2025-01-31 15:46 | Inpatient (IN) | payer MEDICARE, SELFPAY ==
[2025-01-31] VITALS (7 sets, daily range): BP systolic 115–122; BP diastolic 67–74; PULSE 81–89; RESP 14–18; TEMP 36.6; O2SAT 98–100; BMI 23.7; BMI 21.0
--- NOTE | 2025-01-31 15:51 | EKG12_ITS ---
Test Reason : SOB Blood Pressure : */* mmHG Vent. Rate : 82 BPM Atrial Rate : 92 BPM P-R Int : * ms QRS Dur : 176 ms QT Int : 434 ms P-R-T Axes : * -70 99 degrees QTcB Int : 507 ms Ventricular-paced rhythm Abnormal ECG Confirmed by ANNA WEAVER, ROSA ([id number]), video tape editor AISHWARYA ROBERTS ([id number]) on 02/01/2025 10:52:03 AM Referred By: Confirmed By: ROSA CASTILLO MD
--- NOTE | 2025-01-31 17:01 | EDS_ITS ---
HPI History of Present Illness Chief Complaint: Shortness of Breath Detail of Chief Complaint: Shortness of breath Informant: patient and family Narrative Narrative: Patient presents to the emergency department with complaint of shortness of breath has been going on for about a week. She has a history of CHF. She is on Coumadin. Daughter gave an extra dose of Lasix yesterday. She has significant edema in both lower extremities. She has severe exertional dyspnea. Today she was so weak that she lost her balance and fell onto her bottom and was able to brace herself with her left arm and she complains of some discomfort with the left shoulder certain movements. She did not strike her head and her daughter was with her and can attest to that. She denies headache. She denies neck pain. Patient denies any significant chest pain. She denies fever or recent illness. Patient apparently had some lab work that was done this morning as well as a chest x-ray by physician podiatry assistant and cardiology's office. They do not know any of the results of the blood work or the chest x-ray. [facility] Medical History History of Mohs micrographic surgery for skin cancer Back pain Nausea Essential tremor Breast implant capsular contracture Breast implant leak Chronic lumbar radiculopathy Inflammatory arthropathy Lumbar spinal stenosis Gastritis Loss of hearing Wears glasses Cancer Anxiety Walker as ambulation aid Thyroid disease Arthritis Bladder disease High cholesterol Gastric reflux Non-smoker Shortness of breath on exertion Leg cramps History of pain when walking History of echocardiogram History of stress test Hypertension History of CHF (congestive heart failure) Cardiology follow-up encounter History of irregular heartbeat Acid reflux Melanoma Essential tremor Essential hypertension Paroxysmal atrial flutter Paroxysmal atrial fibrillation Hypothyroidism Fibromyalgia History of breast cancer Atrial dysrhythmia Ventricular tachycardia Chronic systolic congestive heart failure Dilated cardiomyopathy 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 tachycardia 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 HLD (hyperlipidemia) History of mitral valve disorder History of esophageal reflux Anxiety states Home Medications ?Medication ?Instructions ?Recorded ?Last Taken ?Type multivitamin 1 ea PO DAILY supplement 09/14/23 History cholecalciferol (vitamin D3) 50 50 mcg PO DAILY vitami n 01/24/21 09/14/23 History mcg (2,000 unit) capsule thyroid (pork) 30 mg tablet 30 mg PO DAILY thyroid 08/06/24 History sacubitril 97 mg-valsartan 103 mg 1 tab PO BID heart f ailure 05/07/21 09/15/23 History tablet (Entresto) primidone 50 mg tablet 50 mg PO BID TREMORS #60 tab s 09/04/23 08/06/24 Rx tramadol 50 mg tablet 50 mg PO Q12H pain 09/15/23 09/14/23 History ondansetron 4 mg disintegrating 4 mg PO Q8H 30 days #9 0 tabs 08/06/24 Unknown Rx tablet furosemide 40 mg tablet 40 mg PO DAILY #90 TABLETS 0 10/04/24 Unknown Rx warfarin 5 mg tablet 5 mg PO .COMPLEX blood thinn er 10/05/24 Unknown Rx #180 tabs carvedilol 25 mg tablet 25 mg PO BID BP/heart #180 t abs 10/06/24 Unknown Rx pravastatin 20 mg tablet 20 mg PO QHS for cholesterol #90 11/22/24 Unknown Rx TABLETS omeprazole 40 mg capsule,delayed 40 mg PO BID #60 caps 11/23/24 Unknown Rx release acetaminophen 650 mg 650 mg PO Q8H 12/17/24 Unkno wn History tablet,extended release (Tylenol Arthritis Pain) linaclotide 145 mcg capsule 145 mcg PO QAM #30 caps Unknown Rx (Linzess) Allergy/AdvReac Type Severity Reaction Status Date / Time HERMILO Inhibitors Allergy Unknown Verified 01/31/25 15:48 amiodarone Allergy Unknown Verified 01/31/25 15:48 Iodinated Contrast Media (CT) Allergy Nausea/Vom/ Verified 01/31/25 15:48 Diarrhea levothyroxine AdvReac Unknown Nausea Verified 01/31/25 15:48 levothyroxine sodium (From AdvReac Unknown Nausea Verified 01/31/25 15:48 Unithroid) Family History (Reviewed 12/17/24 @ 15:52 by Giovana Cisneros [employer]LECTRIC MOTOR REPAIRMAN, ELECTRIC MOTOR REPAIRMAN-C) Father Hypertension Cancer Mother Cancer Hypertension Other History of mitral valve replacement Surgical History History of esophagogastroduodenoscopy (EGD) Presence of double chamber implantable cardioverter-defibrillator (ICD) History of cardiac catheterization Hx of mitral valve repair History of local excision of skin lesion History of radiofrequency ablation procedure for cardiac arrhythmia History of breast implant History of tonsillectomy and adenoidectomy History of knee surgery History of mastectomy Presence of implantable cardioverter-defibrillator (ICD) History of mitral valve replacement (~06/1997) Social History (Reviewed 12/17/24 @ 15:52 by Giovana Cisneros ELECTRIC MOTOR REPAIRMAN, ELECTRIC MOTOR REPAIRMAN-C) Smoking Status: Never smoker alcohol intake: never caffeine: No additional social history: pt on coumadin pt does not take aspirin, does not take ibuprofen, denies vaping or edibles. ROS ROS ED Review of Systems ROS Unobtainable: other Constitutional Constitutional ED: Reports lethargy; Denies chills, fever(s), sweats or weight loss Eyes Eyes: Denies blurry vision, change in vision or diplopia ENT ENT ED: Denies rhinorrhea or sore throat Cardiovascular Cardiovascular: Denies chest pain, orthopnea or racing heartbeat Respiratory/Chest Respiratory/Chest: Reports dyspnea and dyspnea on exertion; Denies orthopnea or sputum Gastrointestinal Gastrointestinal: Denies abdominal pain, diarrhea, nausea or vomiting Genitourinary Genitourinary ED: Denies dysuria, hematuria or urinary frequency Musculoskeletal Musculoskeletal: Reports other Details: Bilateral leg edema ; Denies arthralgias, back pain, myalgias or neck pain Integumentary Denies abscess, Abrasions or rash Neurologic Neurologic: Denies headache(s) or weakness Psychiatric Psychiatric: Denies anxiety, depression or suicidal thoughts Endocrine Endocrinology: Denies polydipsia, polyphagia or polyuria Hematologic/Lymphatic Hematologic/Lymphatic: Denies easy bleeding, easy bruising or lymphadenopathy Allergic/Immunologic Allergic/Immunologic ED: Denies mouth swelling, tongue swelling or urticaria EXAM Physical Exam Const Vital Signs: 01/31/25 15:48 01/31/25 16:59 01/31/25 17:02 Temperature 97.8 F Temperature Source Oral Pulse Rate 81 Respiratory Rate 16 Respiratory Effort Short of Breath Labored Blood Pressure 121/67 H Blood Pressure Mean 85 Pulse Ox 98 99 Oxygen Delivery Method Room Air Room Air Room Air 01/31/25 17:02 01/31/25 17:45 01/31/25 18:25 Temperature Temperature Source Pulse Rate 83 89 Respiratory Rate 14 18 Respiratory Effort Blood Pressure 115/73 122/74 H Blood Pressure Mean 87 90 Pulse Ox 99 100 100 Oxygen Delivery Method Room Air Room Air Room Air Positive well nourished and well developed General Appearance ED: well developed and NAD HEENT Reports TM's clear and moist mucous membranes normocephalic and atraumatic; Negative for trauma or tenderness Tympanic Membrane ED: Yes TM's clear Eyes PERRL and EOMs intact bilaterally General Eye ED: Negative for pale conjunctiva or scleral icterus Neck no lymphadenopathy, supple and no JVD General: Negative for tenderness Chest Wall inspection of chest normal and palpation of chest normal Chest: Negative for tenderness Resp normal respiratory effort and No clear to auscultation bilaterally Resp Narrative: Rales in both bases Effort and Inspection: Negative for respiratory distress or pain with movement Auscultation: rales; Negative for rhonchi, wheezes or diminished lung sounds Cardio regular rate, regular rhythm, S1 normal heart sound, S2 normal heart sound and no murmurs Peripheral Pulses: pulses 2+ throughout GI normal to inspection, nondistended, normoactive bowel sounds, soft to palpation, non-tender, non-distended and no masses Back/Spine no CVA tenderness and no thoracic nor lumbar tenderness Extremity Extremity Narrative: +3 edema both lower extremities General Extremety ED: Yes edema General Extremity: edema Neuro oriented x3, CN's II-XII intact bilaterally, no sensory deficits noted and gait normal Sensorium / Orientation: awake, alert, oriented to person, oriented to place and oriented to time Motor Exam: strength 5/5 throughout and strength abnormal Psych mental status grossly normal Skin no rashes or lesions noted and no wounds MDM MDM MDM Narrative Medical decision making narrative: Patient presents with dyspnea for about a week. History of CHF. I reviewed the medical record and noted that she did have a chest x-ray today that showed bilateral effusions and evidence for CHF. Patient also had lab work with a CBC with differential that showed working 7.0 with hemoglobin 13 and platelet count of 170. Sodium was 130 with potassium 4.4 and BUN of 21 creatinine 1.0. INR was 3.4. Her BT ELECTR[employer] MOTOR REPAIRMAN was approximately 8000. Will obtain a x-ray of her left shoulder and ordered Lasix 80 mg IV. Will discuss with hospitalist to evaluate patient for admission for CHF exacerbation and generalized weakness Lab Data Attestation: I reviewed the patient's lab results. Labs: Laboratory Results - last 24 hr 01/31/25 17:10 WBC 9.8 RBC 4.23 Hgb 13.1 Hct 38.9 MCV 92.0 MCH 31.0 MCHC 33.7 RDW Std Deviation 44.8 H RDW Coeff of Ana Maria 13.3 Plt Count 178 MPV 10.9 Immature Gran % (Auto) 0.500 Neut % (Auto) 80.8 H Lymph % (Auto) 7.3 L Blanco % (Auto) 10.3 H Eos % (Auto) 0.9 Baso % (Auto) 0.2 Absolute Neuts (auto) 7.9 H Absolute Lymphs (auto) 0.71 L Nucleated RBC % 0 Sodium 130 L Potassium 4.2 Chloride 94 L Carbon Dioxide 23.4 Anion Gap 12 BUN 21 H Creatinine 0.99 Estim Creat Clear Calc 33.46 L Est GFR (MDRD) Non-Af 57 L BUN/Creatinine Ratio 21.1 H Glucose 143 H Calcium 9.1 Troponin T High Sens 36 H Radiography Diagnostic Testin view x-rays of the left shoulder obtained interpreted by myself is no evidence of fracture or dislocation. EKG Initial EKG: Attestation: I personally reviewed and interpreted this EKG as follows: Comments: Ventricularly paced rhythm with rate of 82 bpm Discharge Plan Dx/Rx/DC Orders Clinical Impression: Acute CHF, Pleural effusion, Weakness Disposition Disposition: Acute Care [facility]
[2025-01-31 17:19] LABS: Absolute Lymphocyte Count 0.71 X10^3/uL (0.83-4.51); Absolute Neutrophil Count 7.9 X10^3/uL (2.0-7.7); Basophil# 0.02 X10^3/uL; Basophil% 0.2 % (0-1); Eosinophil# 0.09 X10^3/uL; Eosinophils% 0.9 % (0-5); Hematocrit 38.9 % (37-47); Hemoglobin 13.1 g/dL (12.0-15.0); Lymphocyte # 0.71 X10^3/ul (0.83-4.51); Lymphocyte % 7.3 % (19-41); Mean Corp Hgb Conc 33.7 g/dL (32-36); Mean Platelet Vol. 10.9 fl (6.2-12.0); Monocyte# 1.01 X10^3/uL; Monocyte% 10.3 % (0-10); NRBC Flagged by Analyzer 0 % (0-5); Neutrophil # 7.88 X10^3/uL (2.7-7.7); Neutrophil % 80.8 % (47-70); Platelet Count 178 K/mm3 (150-450); RBC Distribution Width CV 13.3 % (11.6-14.6); RBC Distribution Width SD 44.8 fl (35.1-43.9); Red Blood Count 4.23 M/mm3 (4.2-5.4); White Blood Count 9.8 K/mm3 (4.4-11.0)
[2025-01-31] MEDS: Furosemide 100 MG/10 ML Vial 80 MG IV (17:29)
[2025-01-31 17:54] LABS: Anion Gap 12 (5-15); BUN 21 mg/dL (4-19); BUN/Creat Ratio 21.1 RATIO (10-20); Calcium,Total 9.1 mg/dL (7.6-11.0); Carbon Dioxide 23.4 mmol/L (21.0-32.0); Chloride 94 mmol/L (98-108); Creatinine, Serum 0.99 mg/dL (0.70-1.20); EST Glomerular Filtration Rate 57 (>60); Estimated Creatinine Clearance 33.46 ml/min (50-250); Glucose 143 mg/dL (70-99); Potassium 4.2 mmol/L (3.3-5.1); Sodium Level 130 mmol/L (133-145); Troponin T High Sensitivity 36 ng/L (<=14)
--- NOTE | 2025-01-31 18:06 | RAD_ITS ---
PROCEDURE: SHOULDER MIN 2 VIEWS 01/31/2025 REASON FOR EXAM: FALL TECHNIQUE: Four views of the left shoulder. COMPARISON: None. FINDINGS: No evidence of acute fracture or dislocation. Severe acromioclavicular degenerative changes. Mild glenohumeral degenerative changes. RAD/Shoulder min 2 Views IMPRESSION: No acute osseous abnormalities. Osteoarthrosis. Reading Location: [place] [id number]
--- NOTE | 2025-01-31 18:53 | PCM.HP.STD ---
HPI - General General Date of Admission: 01/31/25 Date of Service: 01/31/25 Chief Complaint: Worsening shortness of breath and leg swelling HPI Narrative JAMES BURK, is a 84 F who presented to [facility] ED on 01/31/2025 with worsening shortness of breath and leg swelling. Patient has known history of HFrEF, follows with [facility]. Last echo in 01/08 showed EF 20%, severe global LV systolic dysfunction, stage III diastolic dysfunction. History also significant for paroxysmal atrial flutter, mechanical mitral valve replacement and V. tach with ICD placement. She lives at home and has fairly good functional status at baseline. Daughter is a nurse. Patient reports worsening shortness of breath and lower extremity swelling over the past week or so. She did take an extra dose of Lasix yesterday without much improvement. Denies any recent episodes of chest pain. Denies any recent illnesses. In the ED she was hemodynamically stable on room air. However, chest x-ray showed mild to moderate bilateral pleural effusions and BNP was elevated at 7988. Given acute HFrEF exacerbation, patient was given a dose of IV Lasix 80 mg and hospitalist was contacted for admission. I saw the patient at bedside in the ED, daughter was present. Patient reported significant urine output for the past half an hour after the Lasix was given. She denies any shortness of breath at rest. Denies any other acute concerns currently. Will be admitted for further management. [facility] Medical History History of Mohs micrographic surgery for skin cancer Back pain Nausea Essential tremor Breast implant capsular contracture Breast implant leak Chronic lumbar radiculopathy Inflammatory arthropathy Lumbar spinal stenosis Gastritis Loss of hearing Wears glasses Cancer Anxiety Walker as ambulation aid Thyroid disease Arthritis Bladder disease High cholesterol Gastric reflux Non-smoker Shortness of breath on exertion Leg cramps History of pain when walking History of echocardiogram History of stress test Hypertension History of CHF (congestive heart failure) Cardiology follow-up encounter History of irregular heartbeat Acid reflux Melanoma Essential tremor Essential hypertension Paroxysmal atrial flutter Paroxysmal atrial fibrillation Hypothyroidism Fibromyalgia History of breast cancer Atrial dysrhythmia Ventricular tachycardia Chronic systolic congestive heart failure Dilated cardiomyopathy 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 tachycardia 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 HLD (hyperlipidemia) History of mitral valve disorder History of esophageal reflux Anxiety states Home Medications ?Medication ?Instructions ?Recorded ?Last Taken ?Type multivitamin 1 ea PO DAILY supplement 08/01/17 01/30/25 History cholecalciferol (vitamin D3) 50 50 mcg PO DAILY vitamin 01/24/21 01/31/25 History mcg (2,000 unit) capsule thyroid (pork) 30 mg tablet 30 mg PO DAILY thyroid 01/29/21 08/06/24 History sacubitril 97 mg-valsartan 103 mg 1 tab PO BID heart failure 05/07/21 09/15/23 History tablet (Entresto) primidone 50 mg tablet 50 mg PO BID TREMORS #60 tabs 09/04/23 08/06/24 Rx tramadol 50 mg tablet 50 mg PO Q12H pain 09/15/23 09/14/23 History furosemide 40 mg tablet 40 mg PO DAILY #90 TABLETS 10/04/24 Unknown Rx carvedilol 25 mg tablet 25 mg PO BID BP/heart #180 tabs 10/06/24 Unknown Rx pravastatin 20 mg tablet 20 mg PO QHS for cholesterol #90 11/22/24 01/30/25 Rx TABLETS omeprazole 40 mg capsule,delayed 40 mg PO BID #60 caps 11/23/24 01/30/25 Rx release acetaminophen 650 mg 650 mg PO Q8H arthritis 12/17/24 01/30/25 History tablet,extended release (Tylenol Arthritis Pain) linaclotide 145 mcg capsule 145 mcg PO QAM #30 caps 01/21/25 Unknown Rx (Linzess) fluoxetine 10 mg capsule 10 mg PO DAILY Depression 01/31/25 Unknown History warfarin 5 mg tablet 7.5 mg PO blood thinner 01/31/25 01/30/25 History Allergy/AdvReac Type Severity Reaction Status Date / Time HERMILO Inhibitors Allergy Unknown Verified 01/31/25 15:48 amiodarone Allergy Unknown Verified 01/31/25 15:48 Iodinated Contrast Media (CT) Allergy Nausea/Vom/ Verified 01/31/25 15:48 Diarrhea levothyroxine AdvReac Unknown Nausea Verified 01/31/25 15:48 levothyroxine sodium (From AdvReac Unknown Nausea Verified 01/31/25 15:48 Unithroid) Family History Father Hypertension Cancer Mother Cancer Hypertension Other History of mitral valve replacement Surgical History History of esophagogastroduodenoscopy (EGD) Presence of double chamber implantable cardioverter-defibrillator (ICD) History of cardiac catheterization Hx of mitral valve repair History of local excision of skin lesion History of radiofrequency ablation procedure for cardiac arrhythmia History of breast implant History of tonsillectomy and adenoidectomy History of knee surgery History of mastectomy Presence of implantable cardioverter-defibrillator (ICD) History of mitral valve replacement (~06/1997) Social History Smoking Status: Never smoker alcohol intake: never caffeine: No additional social history: pt on coumadin pt does not take aspirin, does not take ibuprofen, denies vaping or edibles. ROS Constitutional Constitutional: Reports fatigue; Denies chills, fever(s) or weakness Eyes Eyes: Denies change in vision Cardiovascular Cardiovascular: Reports dyspnea on exertion and edema; Denies chest pain, lightheadedness or palpitations Respiratory/Chest Respiratory/Chest: Reports shortness of breath with exertion; Denies cough, shortness of breath at rest or wheezing Gastrointestinal Gastrointestinal: Denies abdominal pain Genitourinary Genitourinary: Denies dysuria Musculoskeletal Musculoskeletal: Denies arthralgias or myalgias Vital Signs Vital Signs Vital Signs: 01/31/25 15:48 01/31/25 16:59 01/31/25 17:02 Temperature 97.8 F Temperature Source Oral Pulse Rate 81 Respiratory Rate 16 Respiratory Effort Short of Breath Labored Blood Pressure 121/67 H Blood Pressure Mean 85 Pulse Ox 98 99 Oxygen Delivery Method Room Air Room Air Room Air 01/31/25 17:02 01/31/25 17:45 01/31/25 18:25 Temperature Temperature Source Pulse Rate 83 89 Respiratory Rate 14 18 Respiratory Effort Blood Pressure 115/73 122/74 H Blood Pressure Mean 87 90 Pulse Ox 99 100 100 Oxygen Delivery Method Room Air Room Air Room Air Weight Weight: 58.8 kg Body Mass Index (BMI) 23.7 Physical Exam Const alert, oriented x3, no apparent distress and average body habitus Constitutional Narrative: Pleasant elderly female, mildly fatigued appearing but otherwise sitting back comfortably in bed, conversing normally, in no acute distress. General Appearance: cooperative and comfortable HEENT normocephalic, head/scalp atraumatic, hearing grossly normal bilaterally, nasal mucous membranes and turbinates normal and moist oral mucous membranes Eyes PERRL, EOMs intact bilaterally and conjunctivae normal Neck full ROM Chest inspection of chest normal Resp normal respiratory effort and no use of accessory muscles Resp Narrative: Breathing comfortably on room air at rest. Decreased breath sounds at bilateral lung bases but otherwise good air movement throughout with no wheezing or crackles noted. Cardio regular rate, regular rhythm, no murmurs and peripheral pulses 2+ throughout GI normal to inspection, nondistended, normoactive bowel sounds, soft to palpation, non-tender and non-distended Back/Spine normal ROM Extremity Extremity Narrative: +2-3 lower extremity pitting edema noted. Skin no rashes or lesions noted Psych mental status grossly normal Results Lab / Micro Data 01/31/25 17:10 01/31/25 17:10 Labs: Laboratory Results - last 24 hr 01/31/25 17:10: WBC 9.8, RBC 4.23, Hgb 13.1, Hct 38.9, MCV 92.0, MCH 31.0, MCHC 33.7, RDW Std Deviation 44.8 H, RDW Coeff of Ana Maria 13.3, Plt Count 178, MPV 10.9, Immature Gran % (Auto) 0.500, Neut % (Auto) 80.8 H, Lymph % (Auto) 7.3 L, [place] % (Auto) 10.3 H, Eos % (Auto) 0.9, Baso % (Auto) 0.2, Absolute Neuts (auto) 7.9 H, Absolute Lymphs (auto) 0.71 L, Nucleated RBC % 0, Sodium 130 L, Potassium 4.2, Chloride 94 L, Carbon Dioxide 23.4, Anion Gap 12, BUN 21 H, Creatinine 0.99, Estim Creat Clear Calc 33.46 L, Est GFR (MDRD) Non-Af 57 L, BUN/Creatinine Ratio 21.1 H, Glucose 143 H, Calcium 9.1, Troponin T High Sens 36 H Assessment & Plan Assessment/Plan (1) Acute on chronic HFrEF (heart failure with reduced ejection fraction): PLAN: Plan Patient is an 84-year-old female who presented to [facility] ED on 01/31/2025 with worsening shortness of breath and lower extremity swelling. 1. 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 tach s/p ICD placement, paroxysmal atrial flutter, hypertension, hyperlipidemia ? Admit under inpatient status to PCU. Follows with [facility]. Last echo in 12/2023 showed EF 20%, severe global LV dysfunction, stage III diastolic dysfunction. Presented with worsening shortness of breath and volume overload. Chest x-ray with bilateral pleural effusions and vascular congestion. BNP 8000. Unclear etiology for heart failure exacerbation. No recent episodes of chest pain. EKG with normal sinus rhythm and no ischemic changes. Troponin trend 36 > 38 > 42. Repeat echo ordered. Will treat with IV Lasix 40 mg every 8 hours for now, monitor daily BMP and urine output. Okay to continue home Coreg, Entresto and statin. INR goal 2.5-3.5, therapeutic on admit. Continue home warfarin. Chronic medical conditions: ? Anxiety/depression/chronic pain: Stable. Continue home fluoxetine and tramadol. ? History of esophageal dysphagia, GERD: Follows with Dr. Gould. Suspected that prior chest radiation therapy for breast cancer may be a contributing factor. Doing well recently, no acute concerns. Continue home PPI. Continue outpatient follow-up. ? Tremors: Continue home primidone. ? Hypothyroidism: Continue home thyroid replacement. ? History of breast cancer s/p mastectomy and radiation therapy DVT prophylaxis: Not indicated, on warfarin CODE STATUS: DNR CCA, okay to intubate Expected disposition: Home, TBD Total clinical time spent by myself addressing the patient's medical issues, reviewing all the data, and collaborating with patient's care team: 75 minutes. Charges/Coding Visit Charges Inpatient E&M: 12091 Init Hosp L3
[2025-01-31 20:40] LABS: Troponin T High Sens 2 HR 38 ng/L (<=14)
[2025-01-31] MEDS: Furosemide 500 MG in Empty Viaflex 50 mL 1 EACH CONT INF (20:55)
--- NOTE | 2025-01-31 20:55 | ECHOCS_ITS ---
Reason For Study Reason For Study: CONGESTIVE HEART FAILURE Procedure This was a 2D Doppler, Color Flow transthoracic echocardiogram. The study was technically difficult. Contrast injection was performed. The patient was scanned supine. Limited windows due to left breast implant. Exam performed portable in patient room. Left Ventricle Normal LV size. The left ventricular ejection fraction is 20 %. Paced septal motion. There is severe global hypokinesis of the left ventricle. Right Ventricle ICD or pacer leads identified within the right ventricle. Moderately dilated right ventricle. Mild global right ventricular systolic dysfunction. Atria Normal left atrium. Normal right atrium. Mitral Valve Stable appearing mechanical mitral valve apparatus. Tricuspid Valve Mild focal thickening of the tricuspid valve, anterior leaflet. Mild focal thickening of the tricuspid valve, posterior leaflet. Moderate (2+) tricuspid valve insufficiency. Pulmonary artery systolic pressure is 49 mmHg. Aortic Valve Trisinus/trileaflet aortic valve. Great Vessels Normal aortic root. The pulmonary artery is normal size. Pericardium/Pleural Trivial pericardial effusion. Medication Diluted definity 2ml given slow IV push to enhance endocardial definition. MMode/2D Measurements & Calculations LVIDd: 4.4 cm IVSd: 0.84 cm asc Aorta Diam: 2.5 cm LVIDs: 4.1 cm LVPWd: 0.69 cm FS: 8.7 % LVAd ap4: 35.2 cm2 LVAd ap2: 33.9 cm2 SV(MOD-sp4): 28.6 ml LVLd ap4: 7.7 cm LVLd ap2: 7.4 cm SI(MOD-sp4): 18.9 ml/m2 EDV(MOD-sp4): 133.5 ml EDV(MOD-sp2): 128.2 ml EDV(sp4-el): 136.1 ml EDV(sp2-el): 131.7 ml LVAs ap4: 30.3 cm2 LVAs ap2: 31.2 cm2 LVLs ap4: 7.2 cm LVLs ap2: 7.2 cm ESV(MOD-sp4): 105.0 ml ESV(MOD-sp2): 112.3 ml ESV(sp4-el): 107.7 ml ESV(sp2-el): 115.2 ml EF(MOD-sp4): 21.4 % EF(MOD-sp2): 12.4 % EF(sp4-el): 20.9 % SV(MOD-sp2): 15.9 ml SV(sp4-el): 28.4 ml RA A4 area: 13.7 cm2 SI(MOD-sp2): 10.5 ml/m2 TAPSE: 0.59 cm Time Measurements MV dec time: 0.13 sec Doppler Measurements & Calculations MV E max mitch: 154.4 cm/sec Lat Peak E' Mitch: 7.5 cm/sec Med Peak E' Mitch: 6.5 cm/sec E/E' lat: 20.6 E/E' med: 23.7 MV V2 max: 189.5 cm/sec Ao V2 max: 150.2 cm/sec LV V1 max: 113.6 cm/sec MV max P.4 mmHg Ao max P.0 mmHg LV V1 max P.2 mmHg MV V2 mean: 92.9 cm/sec Ao V2 mean: 108.9 cm/sec LV V1 mean P.5 mmHg MV mean P.5 mmHg Ao mean P.4 mmHg LV V1 mean: 70.0 cm/sec MV V2 VTI: 26.0 cm Ao V2 VTI: 28.9 cm LV V1 VTI: 21.2 cm AV (velocity ratio): 0.73 TR max mitch: 331.7 cm/sec TR max P.0 mmHg ECHO/Echo Complete W/ Contrast Interpretation Summary The left ventricular ejection fraction is 20 %. Paced septal motion. Normal LV size. There is severe global hypokinesis of the left ventricle. Moderate (2+) tricuspid valve insufficiency. Ordering Physician: Ruiz Landers Referring Physician: Romie Landeros Chi Performed By: Adriana Moreno RDCS
[2025-01-31] MEDS: SACUBITRIL/VALSARTAN 97-103 MG TABLET 1 EACH PO (20:58)
[2025-01-31] MEDS: CLARIFY ORDER 1 EACH NOTE (20:58)
[2025-01-31] MEDS: Pravastatin 20 MG Tablet PO (20:59)
[2025-01-31] MEDS: Primidone 50 MG Tablet PO (20:59)
[2025-01-31] MEDS: traMADol 50 MG Tablet PO (21:08)
[2025-01-31 21:54] LABS: Troponin T High Sens 4 HR 42 ng/L (<=14)
[2025-02-01 03:57] VITALS: BP 104/58; PULSE 83; RESP 18; TEMP 36.3; O2SAT 93
[2025-02-01] MEDS: Acetaminophen 325 MG Tablet 650 MG PO ×2 (06:04→21:49)
[2025-02-01] MEDS: Furosemide 40 MG/4 ML Vial IV ×2 (06:05→18:24)
[2025-02-01 06:38] VITALS: BMI 22.6
[2025-02-01 08:24] VITALS: BP 124/49; PULSE 70; RESP 17; TEMP 36.8; O2SAT 92
[2025-02-01] MEDS: Carvedilol 12.5 MG Tablet PO ×2 (08:29→18:24)
--- NOTE | 2025-02-01 09:12 | PCM.PN.HOSP ---
Reason for Visit Reason for Visit: Diagnoses Acute on chronic systolic (congestive) heart failure (01/31/25) Objective Data Objective Data Vital Signs: Vital Signs Temp Pulse Resp BP Pulse Ox O2 Del Method 98.3 F 70 17 124/49 H 92 Room Air 02/01/25 08:24 02/01/25 08:24 02/01/25 08:24 02/01/25 08:24 02/01/25 08:24 02/01/25 08:31 Oxygen Delivery Method Room Air Weight: 123 lb 7.342 oz Body Mass Index (BMI) 22.6 Intake & Output: Intake and Output for Last 24 Hours 01/30/25 01/31/25 02/01/25 23:59 23:59 23:59 Intake Total 0 / 0 Output Total 250 / 250 Balance 0 / 0 -250 / -250 Lab / Micro Data 01/31/25 17:10 01/31/25 17:10 Labs: Laboratory Results - last 24 hr 01/31/25 17:10: WBC 9.8, RBC 4.23, Hgb 13.1, Hct 38.9, MCV 92.0, MCH 31.0, MCHC 33.7, RDW Std Deviation 44.8 H, RDW Coeff of Ana Maria 13.3, Plt Count 178, MPV 10.9, Immature Gran % (Auto) 0.500, Neut % (Auto) 80.8 H, Lymph % (Auto) 7.3 L, [place] % (Auto) 10.3 H, Eos % (Auto) 0.9, Baso % (Auto) 0.2, Absolute Neuts (auto) 7.9 H, Absolute Lymphs (auto) 0.71 L, Nucleated RBC % 0, Sodium 130 L, Potassium 4.2, Chloride 94 L, Carbon Dioxide 23.4, Anion Gap 12, BUN 21 H, Creatinine 0.99, Estim Creat Clear Calc 33.46 L, Est GFR (MDRD) Non-Af 57 L, BUN/Creatinine Ratio 21.1 H, Glucose 143 H, Calcium 9.1, Troponin T High Sens 36 H 01/31/25 19:25: Troponin T Hi Sens 2 Hr 38 H 01/31/25 21:25: Troponin T Hi Sens 4Hr 42 H Radiography Diagnostic Testing: Radiology Impression Shoulder X-Ray 01/31/25 18:06 IMPRESSION: No acute osseous abnormalities. Osteoarthrosis. Reading Location: [place] [id number] Physical Exam Narrative Seen and examined. Admitted with shortness of breath leg edema for about 2 weeks. Physical exam General: Alert, Oriented x3, Cooperative HEENT: Atraumatic, PERRLA, EOMI, Normocephalic. Oral: No Gingival or Mucosal Lesions/ Ulcerations Neck: Supple, No JVD, Negative Carotid Bruits Chest wall/Lungs: Air entry diminished in bilateral lung bases. Mild fine crepitations Cardiovascular: Regular rate and rhythm, Normal S1,S2, mechanical valve click. Abdomen: Bowel Sounds Present, Soft, Non Tender, Non-Distended : No dysuria. No renal angle tenderness. No suprapubic tenderness. Extremities: 2+ below knee pitting, bilateral edema, Capillary Refill Less than 3 Seconds Skin: No rashes, No breakdown Musculoskeletal: No Tenderness to Palpation of Joints or Extremities Neurological: Cranial nerves II-XII grossly intact, DTR 2+/4. No acute focal neurological deficit. Psych/Mental Status: Normal Affect, Appropriate. Assessment & Plan Assessment/Plan (1) Acute on chronic HFrEF (heart failure with reduced ejection fraction): PLAN: Plan Patient is an 84-year-old female who presented to [facility] ED on 01/31/2025 with worsening shortness of breath and lower extremity swelling. Patient was sent by environmental air specialist for evaluation had fall this morning. 1. 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 tach s/p ICD placement, paroxysmal atrial flutter, hypertension, hyperlipidemia ? Admit under inpatient status to PCU. Follows with [facility]. Last echo in 12/2023 showed EF 20%, severe global LV dysfunction, stage III diastolic dysfunction. Chest x-ray with bilateral pleural effusions and vascular congestion. BNP 8000. Unclear etiology for heart failure exacerbation. No recent episodes of chest pain. EKG with normal sinus rhythm and no ischemic changes. Troponin trend 36 > 38 > 42. continue home Coreg, Entresto and statin. INR goal 2.5-3.5, therapeutic on admit. Continue home warfarin. 02/01: Chest x-ray reviewed shows bilateral pleural effusion. Patient has AICD. Started on furosemide 40 IV every 8 hourly and decreased to 40 mg every 12 hourly. Heart failure core measures including intake and output, fluid restriction less than 1500 mL, daily weight monitoring, kidney and electrolytes monitoring. Echo was done today and is pending Chronic medical conditions: ? Anxiety/depression/chronic pain: Stable. Continue home fluoxetine and tramadol. ? History of esophageal dysphagia, GERD: Follows with Dr. Gould. Suspected that prior chest radiation therapy for breast cancer may be a contributing factor. Doing well recently, no acute concerns. Continue home PPI. Continue outpatient follow-up. ? Tremors: Continue home primidone. ? Hypothyroidism: Continue home thyroid replacement. ? History of breast cancer s/p mastectomy and radiation therapy DVT prophylaxis: Not indicated, on warfarin CODE STATUS: DNR CCA, okay to intubate Clinical Impression(s) from Imaging Studies Shoulder X-Ray 01/31/25 18:06 IMPRESSION: No acute osseous abnormalities. Osteoarthrosis. Reading Location: [id number] Charges/Coding Visit Charges Inpatient E&M: 30971 Subs Hosp L2
[2025-02-01] MEDS: FLUoxetine 10 MG Capsule PO (11:01)
[2025-02-01] MEDS: Pantoprazole Sodium 40 MG Tablet PO (11:01)
[2025-02-01] MEDS: traMADol 50 MG Tablet PO ×2 (11:01→21:48)
[2025-02-01] MEDS: Primidone 50 MG Tablet PO ×2 (11:01→21:48)
[2025-02-01] MEDS: SACUBITRIL/VALSARTAN 97-103 MG TABLET 1 EACH PO ×2 (11:01→21:48)
[2025-02-01] MEDS: Multivitamins,Therapeutic Tablet 1 TABLET PO (11:02)
[2025-02-01] MEDS: Enoxaparin 40 MG/0.4 ML Syringe SC (11:02)
[2025-02-01] MEDS: Thyroid 60 MG Tablet 30 MG PO (11:02)
--- NOTE | 2025-02-01 14:12 | CASEMGMT ---
Addendum entered by Cece Alaniz 02/01/25 16:03: Reviewed therapy evals and discussed further dc plans. Pt states she feels like she will be safe @ her home, stating her dtr will take her home and assist w/the steps and get her settled in. She states she is not sure if dtr will be staying w/her or for how long, but states she will help her get situated in the home. She states her son and DIL live next door and can assist her as well. Addendum entered by Cece Alaniz 02/01/25 15:57: Pt states she does not have transportation to Dr Landeros's office on , and she does not think she can get in/out of [facility] van independently. She checked w/her dtr, who states she will be available to take her to appt @ Dr Landeros's office on Wednesday 02/07. Appt re-scheduled w/Dr Landeros 02/07 @ 2 PM. Pt is aware that Dr Landeros usually will not approve for HHC until pt is seen in his office. She voices understanding and states she would be okay w/HHC SOC Friday, if needed. Call to Eryn @ [facility] and she was made aware of above. She states HHC SOC TBD, as she will f/u with Dr Landeros's office to see if he will approve HHC before the appt, as long as pt verifies she will attend the appt 02/07. Addendum entered by Nathan Coombs 02/01/25 14:51: Catalina from [facility] states that they can accept for a SOC Friday. 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 Original Note: RN NANCY Assessment Face to Face with patient for initial transition planning/care coordination assessment. JAYLYN CRUZ introduced self and role at [facility], pt voices understanding. Pt is A&Ox4 and is resting comfortably in bed and is calm. Care providers, pharmacy, and demographics verified. Admitting dx: CHF Exacerbation LACE Strata: 2 PCP: [facility] Specialists: Friend (GI), [facility], History with Dr. Hopkins (Neuro) Preferred Pharmacy: [facility] Insurance: [employer] [facility] Prescription Benefit: Yes LNOK: Shilpa (Daughter), Dakota (Son) Living Arrangements: Pt lives alone in a 2 story home with a FFSU and 4 steps to enter ADLs/IADLs: Pt reports that she is mainly indep. Pt daughter states that she helps the pt at home with cooking, cleaning, and getting equipment prepped for the pt. Transportation: Daughter DME: pox, BP Machine, FWW, Raised Toilet Seat, grab bars, walk in shower with shower chair and grab bars HHC/SNF: History with [facility]. Pt?s goal: Home with HHC Plan: Anticipate home with HHC once medically ready. At this time, the pt and the pt's daughter are requesting skilled HHC for after DC. Pt is aware that [facility] do not include SN. Pt would like a SN as well for [facility]. Pt now denies wanting to review a list of local in-network HHC agencies and states that she would prefer [facility] HH. TC to Catalina and referral made for SN, PT, and OT. Awaiting return response. Noted pt is also a pt of Dr Landeros and will require a PCP f/u appt prior to starting. 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 Catalina from notified. CM to follow. Brittany Coombs RN, CM
[2025-02-01 14:30] VITALS: BP 109/65; PULSE 86; RESP 17; TEMP 36.7; O2SAT 98
[2025-02-01 18:15] VITALS: BP 117/52; PULSE 69; RESP 17; TEMP 36.7; O2SAT 96
[2025-02-01] MEDS: Mupirocin Ointment 22gm Tube 1 APPLIC TOPICAL ×2 (18:25→21:48)
[2025-02-01 21:45] VITALS: BP 127/63; PULSE 94; RESP 18; TEMP 36.6; O2SAT 95
[2025-02-01] MEDS: Pravastatin 20 MG Tablet PO (21:48)
[2025-02-02 04:18] VITALS: BP 108/57; PULSE 89; RESP 18; TEMP 36.6; O2SAT 93
[2025-02-02] MEDS: Acetaminophen 325 MG Tablet 650 MG PO (04:19)
[2025-02-02 05:05] VITALS: BMI 22.2
[2025-02-02 05:38] VITALS: BP 90/79; PULSE 77
[2025-02-02 06:52] LABS: Absolute Lymphocyte Count 0.95 X10^3/uL (0.83-4.51); Absolute Neutrophil Count 3.7 X10^3/uL (2.0-7.7); Basophil# 0.02 X10^3/uL; Basophil% 0.4 % (0-1); Eosinophil# 0.19 X10^3/uL; Eosinophils% 3.4 % (0-5); Hematocrit 37.2 % (37-47); Hemoglobin 12.8 g/dL (12.0-15.0); Lymphocyte # 0.95 X10^3/ul (0.83-4.51); Mean Corp Hgb Conc 34.4 g/dL (32-36); Mean Corpuscular Hgb 31.2 pg (27.0-32.0); Mean Corpuscular Volume 90.7 fL (81-99); Mean Platelet Vol. 10.9 fl (6.2-12.0); Monocyte# 0.68 X10^3/uL; Monocyte% 12.2 % (0-10); NRBC Flagged by Analyzer 0 % (0-5); Neutrophil % 66.3 % (47-70); Platelet Count 148 K/mm3 (150-450); RBC Distribution Width CV 13.2 % (11.6-14.6); RBC Distribution Width SD 43.6 fl (35.1-43.9); White Blood Count 5.6 K/mm3 (4.4-11.0)
[2025-02-02 07:00] VITALS: BP 125/66
[2025-02-02] MEDS: Furosemide 40 MG/4 ML Vial IV (07:02)
[2025-02-02] MEDS: 0.9% Saline Lock 10 ML Syringe IV (07:02)
[2025-02-02 07:24] LABS: Anion Gap 12 (5-15); BUN 17 mg/dL (4-19); BUN/Creat Ratio 18.6 RATIO (10-20); Calcium,Total 8.8 mg/dL (7.6-11.0); Chloride 92 mmol/L (98-108); Creatinine, Serum 0.89 mg/dL (0.70-1.20); EST Glomerular Filtration Rate 64 (>60); Estimated Creatinine Clearance 37.22 ml/min (50-250); Glucose 134 mg/dL (70-99); Magnesium 1.7 mg/dL (1.5-2.2); Potassium 3.9 mmol/L (3.3-5.1); Sodium Level 130 mmol/L (133-145)
[2025-02-02 08:31] VITALS: BP 127/63; PULSE 70; RESP 16; TEMP 36.6; O2SAT 98
[2025-02-02] MEDS: Carvedilol 12.5 MG Tablet PO (08:33)
[2025-02-02] MEDS: Thyroid 60 MG Tablet 30 MG PO (08:33)
[2025-02-02] MEDS: Enoxaparin 40 MG/0.4 ML Syringe SC (08:34)
[2025-02-02] MEDS: Linacolotide 145 MCG CAPSULE PO (08:34)
[2025-02-02] MEDS: SACUBITRIL/VALSARTAN 97-103 MG TABLET 1 EACH PO (08:34)
[2025-02-02] MEDS: FLUoxetine 10 MG Capsule PO (08:35)
[2025-02-02] MEDS: Multivitamins,Therapeutic Tablet 1 TABLET PO (08:35)
[2025-02-02] MEDS: Pantoprazole Sodium 40 MG Tablet PO (08:35)
[2025-02-02] MEDS: Primidone 50 MG Tablet PO (08:35)
[2025-02-02] MEDS: Ensure Plus High Protein 120 ML LIQUID PO (08:42)
[2025-02-02] MEDS: traMADol 50 MG Tablet PO (08:43)
[2025-02-02 08:46] LABS: Phosphorus 3.5 mg/dL (2.7-4.5)
--- NOTE | 2025-02-02 09:34 | PCM.DC ---
Discharge Instructions Diet Discharge Diet: No restrictions DC O2, CPAP, BIPAP needs Home O2 Discharge instructions: No Dressing / Incision Discharge Activity: Return to Normal Activity Weight Bearing Status: Weight bearing as tolerated Dressing / Incision Call your doctor if you observe: Fever of 101 or Higher, Coldness, Increased Pain, Numbness or Tingling, Change in Color, Inability to urinate, Inability to have a bowel movement, Shortness of breath, Dizziness, Fainting spells, Swelling in the ankles, Chest pain, Prolonged hiccupping, Increased palpitations (irregular heartbeat) and Calf discomfort Follow Up Care When: IN 2 WEEKS Test Results: Test results from this visit will be discussed in further detail at your follow-up appointment, if applicable. Discharge Plan Admission Admit Date/Time: 01/31/25 18:53 Primary Reason for Your Visit: Acute on chronic systolic heart failure Attending Provider: Drew Velásquez Primary Care Provider: Romie Landeros Chi Consulting Providers: Ruiz Landers Discharge Orders/Prescriptions Prescriptions: Continued cholecalciferol (vitamin D3) 50 mcg (2,000 unit) capsule 50 mcg PO DAILY thyroid (pork) 30 mg tablet 30 mg PO DAILY Patient Comments: TAKE 1 TABLET BY MOUTH ONCE DAILY FOR 30 DAYS acetaminophen [Tylenol Arthritis Pain] 650 mg tablet extended release 650 mg PO Q8H Linzess 145 mcg capsule 145 mcg PO QAM Qty: 30 3RF multivitamin 1 EACH tablet 1 ea PO DAILY Entresto 97-103 mg Tablet 1 tab PO BID tramadol 50 mg tablet 50 mg PO Q12H Patient Comments: TAKE 1 TABLET BY MOUTH TWICE DAILY warfarin 5 mg tablet 7.5 mg PO DAILY Protocol: Dose Management Condition: Friday Dose/Route: 7.5 mg Instruction: 1.5 x 5 mg tablets Condition: Friday Dose/Route: 5 mg Instruction: 1 x 5 mg tablet Condition: Friday Dose/Route: 5 mg Instruction: 1 x 5 mg tablet Condition: Friday Dose/Route: 7.5 mg Instruction: 1.5 x 5 mg tablets Condition: Dose/Route: 7.5 mg Instruction: 1.5 x 5 mg tablets Condition: Friday Dose/Route: 7.5 mg Instruction: 1.5 x 5 mg tablets Condition: Friday Dose/Route: 7.5 mg Instruction: 1.5 x 5 mg tablets Protocol Text: Adjustment Start Date: Friday01/31/25 INR Value: 3.4 INR Date: 01/31/25 Recheck Date: 02/14/25 Patient Comments: Kenny 5. For the next 4 days she is taking 7.5mg. Rx Instructions: 5 mg orally 1.5 tablets to = 7.5 mg Friday through and two tablets (10 mg) Fri, Fri and Friday OR as directed: please give extra tablets for dose changes. fluoxetine 10 mg capsule 10 mg PO DAILY primidone 50 mg tablet 50 mg PO BID Qty: 60 3RF carvedilol 25 mg tablet 25 mg PO BID Qty: 180 3RF pravastatin 20 mg tablet 20 mg PO QHS Qty: 90 3RF omeprazole 40 mg capsule,delayed release(DR/EC) 40 mg PO BID Qty: 60 2RF Changed furosemide 40 mg tablet 40 mg PO BID 30 Days Qty: 60 3RF Referrals / Follow Up: Romie Landeros Chi, MD [Primary Care Provider] - 02/07/25 2:00 pm Anthony Hassan MD [Med Staff - Active Staff] - Within 1 Month Giovana Cisneros NP, INSULATION CUTTER AND FORMER-C [Non-Staff -Ordering Privileges] - Within 2 Weeks Disposition Disposition (needs filled in before D/C Order can be placed): Home Health Service
--- NOTE | 2025-02-02 10:22 | PCM.DC.SUM ---
Providers Date of Admission: 01/31/25 Date of Discharge: 02/02/25 Primary Care Physician: Dr. Romie Landeros MD Consultations 02/01/25 14:24 Consult: Onc/Wound/communication arts lecturer Routine Comment: Reason For Visit: CHF EXACERBATION Diagnosis Discharge Diagnosis (1) Acute on chronic HFrEF (heart failure with reduced ejection fraction): Status: Chronic Code(s): I50.23 - Acute on chronic systolic (congestive) heart failure Plan Patient is an 84-year-old female who presented to [facility] ED on 01/31/2025 with worsening shortness of breath and lower extremity swelling. Patient was sent by clothes drier repairer for evaluation had fall this morning. 1. 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 tach s/p ICD placement, paroxysmal atrial flutter, hypertension, hyperlipidemia ? Admit under inpatient status to PCU. Follows with [place] [facility]. Last echo in 12/2023 showed EF 20%, severe global LV dysfunction, stage III diastolic dysfunction. Chest x-ray with bilateral pleural effusions and vascular congestion. BNP 8000. Unclear etiology for heart failure exacerbation. No recent episodes of chest pain. EKG with normal sinus rhythm and no ischemic changes. Troponin trend 36 > 38 > 42. continue home Coreg, Entresto and statin. INR goal 2.5-3.5, therapeutic on admit. Continue home warfarin. 02/01: Chest x-ray reviewed shows bilateral pleural effusion. Patient has AICD. Started on furosemide 40 IV every 8 hourly and decreased to 40 mg every 12 hourly. Heart failure core measures including intake and output, fluid restriction less than 1500 mL, daily weight monitoring, kidney and electrolytes monitoring. Echo was done today and is pending 02/02: Patient is well diuresed. Leg swelling is much improved. Patient currently on room air. No crepitations on lung exam. Patient discharged on furosemide 40 mg twice daily increased from home dose of 40 mg daily. Continue rest of the medications including Toprol 25 mg twice daily and Entresto. Follow-up in cardiology office in 2 weeks. She used to follow Dr. Hayden advised to follow-up with Dr. Hassan in 1 month. Chronic medical conditions: ? Anxiety/depression/chronic pain: Stable. Continue home fluoxetine and tramadol. ? History of esophageal dysphagia, GERD: Follows with Dr. Gould. Suspected that prior chest radiation therapy for breast cancer may be a contributing factor. Doing well recently, no acute concerns. Continue home PPI. Continue outpatient follow-up. ? Tremors: Continue home primidone. ? Hypothyroidism: Continue home thyroid replacement. ? History of breast cancer s/p mastectomy and radiation therapy DVT prophylaxis: Not indicated, on warfarin CODE STATUS: DNR CCA, okay to intubate Discharge medication reconciliation done. Discharge follow-up instructions completed. Discharge process discussed with the patient and all questions were answered to patient's satisfaction. Follow with PCP in 1 to 2 weeks Total time spent, exact 35 minutes on discharge meds reconciliation, examination, coordination of care with nurses and ancillary staff, review of imaging and blood test and discussion with the patient on follow-up instructions. Clinical Impression(s) from Imaging Studies Shoulder X-Ray 01/31/25 18:06 IMPRESSION: No acute osseous abnormalities. Osteoarthrosis. Reading Location: [place] [address] Medications at Discharge Home Medications multivitamin 1 ea PO DAILY supplement 08/01/17 cholecalciferol (vitamin D3) 50 mcg (2,000 unit) capsule 50 mcg PO DAILY vitamin 01/24/21 thyroid (pork) 30 mg tablet 30 mg PO DAILY thyroid 01/29/21 sacubitril 97 mg-valsartan 103 mg tablet (Entresto) 1 tab PO BID heart failure 05/07/21 primidone 50 mg tablet 50 mg PO BID TREMORS #60 tabs 09/04/23 tramadol 50 mg tablet 50 mg PO Q12H pain 09/15/23 carvedilol 25 mg tablet 25 mg PO BID BP/heart #180 tabs 10/06/24 pravastatin 20 mg tablet 20 mg PO QHS for cholesterol #90 TABLETS 11/22/24 omeprazole 40 mg capsule,delayed release 40 mg PO BID reflux #60 caps 11/23/24 acetaminophen 650 mg tablet,extended release (Tylenol Arthritis Pain) 650 mg PO Q8H arthritis 12/17/24 linaclotide 145 mcg capsule (Linzess) 145 mcg PO QAM bowels #30 caps 01/21/25 fluoxetine 10 mg capsule 10 mg PO DAILY Depression 01/31/25 warfarin 5 mg tablet 7.5 mg PO DAILY blood thinner 01/31/25 furosemide 40 mg tablet 40 mg PO BID diuretic 30 days #60 TABLETS 02/02/25 Physical Exam Narrative Seen and examined. Shortness of breath and leg swelling has improved. Well diuresed had good urine output on furosemide Physical exam General: Alert, Oriented x3, Cooperative HEENT: Atraumatic, PERRLA, EOMI, Normocephalic. Oral: No Gingival or Mucosal Lesions/ Ulcerations Neck: Supple, No JVD, Negative Carotid Bruits Chest wall/Lungs: Air entry diminished in bilateral lung bases. No crepitations Cardiovascular: Regular rate and rhythm, Normal S1,S2, mechanical valve click. Abdomen: Bowel Sounds Present, Soft, Non Tender, Non-Distended : No dysuria. No renal angle tenderness. No suprapubic tenderness. Extremities: 2+ below knee pitting, bilateral edema, Capillary Refill Less than 3 Seconds Skin: No rashes, No breakdown Musculoskeletal: No Tenderness to Palpation of Joints or Extremities Neurological: Cranial nerves II-XII grossly intact, DTR 2+/4. No acute focal neurological deficit. Psych/Mental Status: Normal Affect, Appropriate. Weight / BMI Weight Weight: 121 lb 11.123 oz Body Mass Index (BMI) 22.2 ABG / Lab / Microbiology Data 02/02/25 06:20 02/02/25 06:20 Laboratory: Laboratory Results - last 24 hr 02/02/25 06:20: WBC 5.6, RBC 4.10 L, Hgb 12.8, Hct 37.2, MCV 90.7, MCH 31.2, MCHC 34.4, RDW Std Deviation 43.6, RDW Coeff of Ana Maria 13.2, Plt Count 148 L, MPV 10.9, Immature Gran % (Auto) 0.700, Neut % (Auto) 66.3, Lymph % (Auto) 17.0 L, [place] % (Auto) 12.2 H, Eos % (Auto) 3.4, Baso % (Auto) 0.4, Absolute Neuts (auto) 3.7, Absolute Lymphs (auto) 0.95, Nucleated RBC % 0, Sodium 130 L, Potassium 3.9, Chloride 92 L, Carbon Dioxide 27.0, Anion Gap 12, BUN 17, Creatinine 0.89, Estim Creat Clear Calc 37.22 L, Est GFR (MDRD) Non-Af 64, BUN/Creatinine Ratio 18.6, Glucose 134 H, Calcium 8.8, Phosphorus 3.5, Magnesium 1.7 Radiography Diagnostic Testing: Radiology Impression Echocardiogram 01/31/25 20:55 Interpretation Summary The left ventricular ejection fraction is 20 %. Paced septal motion. Normal LV size. There is severe global hypokinesis of the left ventricle. Moderate (2+) tricuspid valve insufficiency. Ordering Physician: Ruiz Landers Referring Physician: Romie Landeros Chi Performed By: Adriana Moreno RDCS D/C Instructions Discharge Diet: No restrictions Weight Bearing Status: Weight bearing as tolerated Call your doctor if you observe: Fever of 101 or Higher, Coldness, Increased Pain, Numbness or Tingling, Change in Color, Inability to urinate, Inability to have a bowel movement, Shortness of breath, Dizziness, Fainting spells, Swelling in the ankles, Chest pain, Prolonged hiccupping, Increased palpitations (irregular heartbeat) and Calf discomfort DC O2, CPAP, BIPAP Needs Home O2 Discharge instructions: No When: IN 2 WEEKS Meaningful Use Info Meaningful Use Meaningful Use Diagnoses (Choose all that apply): CHF CHF HERMILO/ARB ordered at discharge?: Yes Documented LVEF (%): 20 Ischemic Stroke Statin Dosing Therapy Reference: STATIN DOSE THERAPY REFERENCE: * Patients > 75 years receive moderate or high dose statin therapy. * Patients 75 years or YOUNGER should receive HIGH intensity statin dose unless contraindicated. You will be required to document reason for non-treatment if statin daily dose does not meet guidelines. HIGH DOSE STATIN THERAPY DAILY Atorvastatin > than or = to 40 mg Rosuvastatin > than or = to 20 mg Amlodipine + Atorvastatin > than or = to 2.5/40 mg Ezetimibe + Simvastatin 10/80 mg Simvastatin 80mg Discharge Plan Admission Admit Date/Time: 01/31/25 18:53 Primary Reason for Your Visit: Acute on chronic systolic heart failure Attending Provider: Drew Velásquez Primary Care Provider: Romie Landeros Chi Consulting Providers: Ruiz Landers Instructions Additional Instructions / Restrictions: Continue incentive spirometry for 1 week Discharge Orders/Prescriptions Prescriptions: Continued cholecalciferol (vitamin D3) 50 mcg (2,000 unit) capsule 50 mcg PO DAILY thyroid (pork) 30 mg tablet 30 mg PO DAILY Patient Comments: TAKE 1 TABLET BY MOUTH ONCE DAILY FOR 30 DAYS acetaminophen [Tylenol Arthritis Pain] 650 mg tablet extended release 650 mg PO Q8H Linzess 145 mcg capsule 145 mcg PO QAM Qty: 30 3RF multivitamin 1 EACH tablet 1 ea PO DAILY Entresto 97-103 mg Tablet 1 tab PO BID tramadol 50 mg tablet 50 mg PO Q12H Patient Comments: TAKE 1 TABLET BY MOUTH TWICE DAILY warfarin 5 mg tablet 7.5 mg PO DAILY Protocol: Dose Management Condition: Friday Dose/Route: 7.5 mg Instruction: 1.5 x 5 mg tablets Condition: Friday Dose/Route: 5 mg Instruction: 1 x 5 mg tablet Condition: Friday Dose/Route: 5 mg Instruction: 1 x 5 mg tablet Condition: Friday Dose/Route: 7.5 mg Instruction: 1.5 x 5 mg tablets Condition: Dose/Route: 7.5 mg Instruction: 1.5 x 5 mg tablets Condition: Friday Dose/Route: 7.5 mg Instruction: 1.5 x 5 mg tablets Condition: Friday Dose/Route: 7.5 mg Instruction: 1.5 x 5 mg tablets Protocol Text: Adjustment Start Date: Friday01/31/25 INR Value: 3.4 INR Date: 01/31/25 Recheck Date: 02/14/25 Patient Comments: Kenny 5. For the next 4 days she is taking 7.5mg. Rx Instructions: 5 mg orally 1.5 tablets to = 7.5 mg Friday through and two tablets (10 mg) Sat, Fri and Friday OR as directed: please give extra tablets for dose changes. fluoxetine 10 mg capsule 10 mg PO DAILY primidone 50 mg tablet 50 mg PO BID Qty: 60 3RF carvedilol 25 mg tablet 25 mg PO BID Qty: 180 3RF pravastatin 20 mg tablet 20 mg PO QHS Qty: 90 3RF omeprazole 40 mg capsule,delayed release(DR/EC) 40 mg PO BID Qty: 60 2RF Changed furosemide 40 mg tablet 40 mg PO BID 30 Days Qty: 60 3RF Referrals / Follow Up: Anthony Hassan MD [Med Staff - Active Staff] - Within 1 Month Romie Landeros Chi, MD [Primary Care Provider] - 02/07/25 2:00 pm Giovana Cisneros NP, SALESPERSON SHOES-C [Non-Staff -Ordering Privileges] - Within 2 Weeks Disposition Disposition (needs filled in before D/C Order can be placed): Home Health Service Charges/Coding Visit Charges Inpatient E&M: 63820 Disch Hosp >30min
[2025-02-02 10:36] VITALS: O2SAT 96; O2SAT 98
--- NOTE | 2025-02-02 11:17 | CASEMGMT ---
Addendum entered by America Bejarano 02/02/25 14:11: Daughter at bedside. JAYLYN CRUZ updated daughter regarding discharge plan, daughter agreeable to [facility] and states family will be checking in on patient and staying with patient. Patient and daughter had no further questions or concerns. Original Note: Patient has order for discharge. JAYLYN CRUZ called [facility], start of care planned for Friday. JAYLYN CRUZ in to discuss needs at discharge with patient, patient updated regarding [facility] start of care. Patient denied further needs or help at discharge. Patient had no furhter questions or concerns. JAYLYN CRUZ updated discharge plan.
--- NOTE | 2025-02-02 12:08 | WOUNDNOTE ---
wound photo: todd
== END 2025-02-02 14:35 | disposition home health service (06) | DRG 291 ==
LOC: ED 17:04 → PCU 19:07
PROVIDERS: Admitting Provider Hospitalist; Emergency Provider Nurse Practitioner Family; PCP Family Medicine Geriatric Medicine; Visit Provider Internal Medicine
DX: I11.0 Hypertensive heart disease with heart failure (principal); I50.23 Acute on chronic systolic (congestive) heart failure; I48.92 Unspecified atrial flutter; J90 Pleural effusion, not elsewhere classified; Z66 Do not resuscitate; Z79.01 Long term (current) use of anticoagulants; E03.9 Hypothyroidism, unspecified; F32.A Depression, unspecified; Z95.2 Presence of prosthetic heart valve; F41.9 Anxiety disorder, unspecified; M79.7 Fibromyalgia; K21.9 Gastro-esophageal reflux disease without esophagitis; R25.1 Tremor, unspecified; E78.5 Hyperlipidemia, unspecified; Z79.891 Long term (current) use of opiate analgesic; Z79.890 Hormone replacement therapy; G89.29 Other chronic pain; Z90.710 Acquired absence of both cervix and uterus; Z85.3 Personal history of malignant neoplasm of breast
CPT/HCPCS: 36415; 36416; 71046; 73030; 80048; 83735; 83880; 84100; 84484; 85025; 85610; 92610; 93005; 93306; 94760; 97162; 97166; 97802; 99284; Q9957; A4216; C8929; J1938

== ENCOUNTER 2025-02-07 15:08 | Outpatient (RCR) | payer MEDICARE, SELFPAY ==
[2025-01-15 20:17] VITALS: BMI 22.4
[2025-01-21 17:53] LABS: Prothrombin Time (Protime)PT. 41.2 SECONDS (11.7-14.9)
[2025-01-21 18:33] LABS: International Normalized Ratio 4.2
[2025-01-31 12:34] LABS: INR Fingerstick 3.4; Prothrombin Time Fingerstick 34.9 SEC (11.7-14.9)
--- NOTE | 2025-01-31 12:45 | RAD_ITS ---
PROCEDURE: CHEST PA AND LATERAL 01/31/2025 REASON FOR EXAM: SOB, HISTORY OF BILATERAL PLEURAL EFFUSIONS TECHNIQUE: CHEST PA AND LATERAL COMPARISON: Portable chest, 12/26/2019. FINDINGS: There has been interval development of bilateral pleural effusions. There is bibasilar airspace disease consistent with atelectasis. There is cardiomegaly. There is calcific vascular disease of the thoracic aorta. Status post median sternotomy and CABG surgery. There is a multi lead pacemaker cardioverter. Status post left mastectomy. There is a left breast prosthesis. RAD/Chest PA and Lateral IMPRESSION: Bilateral pleural effusions with bibasilar airspace disease consistent with ate lectasis. Other findings as noted. Reading Location: [id number]
[2025-01-31 14:42] LABS: Absolute Lymphocyte Count 0.47 X10^3/uL (0.83-4.51); Absolute Neutrophil Count 5.9 X10^3/uL (2.0-7.7); Basophil# 0.02 X10^3/uL; Basophil% 0.3 % (0-1); Eosinophil# 0.07 X10^3/uL; Hematocrit 39.5 % (37-47); Hemoglobin 13.2 g/dL (12.0-15.0); Lymphocyte # 0.47 X10^3/ul (0.83-4.51); Lymphocyte % 6.7 % (19-41); Mean Corp Hgb Conc 33.4 g/dL (32-36); Mean Corpuscular Hgb 30.9 pg (27.0-32.0); Mean Corpuscular Volume 92.5 fL (81-99); Mean Platelet Vol. 10.9 fl (6.2-12.0); Monocyte# 0.56 X10^3/uL; NRBC Flagged by Analyzer 0 % (0-5); Neutrophil # 5.86 X10^3/uL (2.7-7.7); Neutrophil % 83.3 % (47-70); POSITIVE DIFFERENTIAL YES; Platelet Count 170 K/mm3 (150-450); RBC Distribution Width CV 13.4 % (11.6-14.6); RBC Distribution Width SD 45.2 fl (35.1-43.9); Red Blood Count 4.27 M/mm3 (4.2-5.4)
[2025-01-31 15:41] LABS: Anion Gap 13 (5-15); BUN 21 mg/dL (4-19); BUN/Creat Ratio 20.5 RATIO (10-20); Calcium,Total 9.5 mg/dL (7.6-11.0); Carbon Dioxide 24.1 mmol/L (21.0-32.0); Chloride 93 mmol/L (98-108); EST Glomerular Filtration Rate 56 (>60); Glucose 167 mg/dL (70-99); Potassium 4.4 mmol/L (3.3-5.1); Sodium Level 130 mmol/L (133-145)
[2025-01-31 16:35] LABS: Pro- Brain NATRIURETIC PEPTIDE 7988 pg/mL (<=1800)
[2025-02-07 15:41] LABS: Absolute Lymphocyte Count 0.53 X10^3/uL (0.83-4.51); Absolute Neutrophil Count 5.1 X10^3/uL (2.0-7.7); Basophil# 0.02 X10^3/uL; Basophil% 0.3 % (0-1); Eosinophil# 0.07 X10^3/uL; Eosinophils% 1.1 % (0-5); Hematocrit 38.3 % (37-47); Hemoglobin 12.6 g/dL (12.0-15.0); Lymphocyte # 0.53 X10^3/ul (0.83-4.51); Lymphocyte % 8.3 % (19-41); Mean Corp Hgb Conc 32.9 g/dL (32-36); Mean Corpuscular Hgb 30.7 pg (27.0-32.0); Mean Corpuscular Volume 93.4 fL (81-99); Mean Platelet Vol. 10.5 fl (6.2-12.0); Monocyte# 0.71 X10^3/uL; Monocyte% 11.1 % (0-10); NRBC Flagged by Analyzer 0 % (0-5); Neutrophil # 5.08 X10^3/uL (2.7-7.7); POSITIVE DIFFERENTIAL YES; Platelet Count 163 K/mm3 (150-450); RBC Distribution Width CV 13.2 % (11.6-14.6); RBC Distribution Width SD 45.3 fl (35.1-43.9); White Blood Count 6.4 K/mm3 (4.4-11.0)
[2025-02-07 16:13] LABS: Anion Gap 10 (5-15); BUN 28 mg/dL (4-19); BUN/Creat Ratio 27.2 RATIO (10-20); Calcium,Total 9.3 mg/dL (7.6-11.0); Carbon Dioxide 30.4 mmol/L (21.0-32.0); Chloride 92 mmol/L (98-108); Creatinine, Serum 1.01 mg/dL (0.70-1.20); EST Glomerular Filtration Rate 55 (>60); Glucose 144 mg/dL (70-99); Potassium 4.3 mmol/L (3.3-5.1); Pro- Brain NATRIURETIC PEPTIDE 5876 pg/mL (<=1800); Sodium Level 133 mmol/L (133-145)
[2025-02-07 16:43] LABS: Prothrombin Time (Protime)PT. 44.4 SECONDS (11.7-14.9)
[2025-02-07 17:21] LABS: International Normalized Ratio 4.6
== END 2025-02-07 18:00 | disposition home or self-care (01) ==
LOC: LAB 15:08
PROVIDERS: Family Provider Family Medicine Geriatric Medicine; PCP Family Medicine Geriatric Medicine; Referring Provider Family Medicine Geriatric Medicine; Visit Provider Nurse Practitioner Gerontology
DX: I48.0 Paroxysmal atrial fibrillation (principal); Z79.01 Long term (current) use of anticoagulants; Z98.890 Other specified postprocedural states; Z95.2 Presence of prosthetic heart valve; R14.0 Abdominal distension (gaseous); J90 Pleural effusion, not elsewhere classified; I50.22 Chronic systolic (congestive) heart failure; Z95.810 Presence of automatic (implantable) cardiac defibrillator; I42.0 Dilated cardiomyopathy; R06.02 Shortness of breath
CPT/HCPCS: 36415; 36416; 71046; 80048; 83880; 85025; 85610

== ENCOUNTER → 2025-02-14 | Outpatient (CLI) | payer MEDICARE, SELFPAY ==
[2025-02-14 17:44] LABS: AST(SGOT) 29 U/L (<=31); Alanine Aminotransfer ALT/SGPT 19 U/L (<=34); Albumin, Serum 4.3 g/dL (3.4-4.8); Alkaline Phosphatase 102 U/L (35-104); Anion Gap 10 (5-15); BUN 27 mg/dL (4-19); BUN/Creat Ratio 27.5 RATIO (10-20); Calcium,Total 9.3 mg/dL (7.6-11.0); Carbon Dioxide 28.6 mmol/L (21.0-32.0); Chloride 94 mmol/L (98-108); Creatinine, Serum 0.99 mg/dL (0.70-1.20); EST Glomerular Filtration Rate 57 (>60); Globulin 2.1 g/dL (2.2-4.2); Glucose 139 mg/dL (70-99); Potassium 4.4 mmol/L (3.3-5.1); Protein, Total 6.4 g/dL (5.9-8.4); Sodium Level 132 mmol/L (133-145)
== END | disposition home or self-care (01) ==
LOC: LAB 15:48
PROVIDERS: PCP Family Medicine Geriatric Medicine; Referring Provider Family Medicine Geriatric Medicine; Visit Provider Family Medicine Geriatric Medicine
DX: I50.21 Acute systolic (congestive) heart failure (principal)
CPT/HCPCS: 36415; 80053

== ENCOUNTER → 2025-02-21 | Outpatient (CLI) | payer MEDICARE, SELFPAY ==
[2025-02-21 12:03] LABS: Hematocrit 37.4 % (37-47); Hemoglobin 12.1 g/dL (12.0-15.0); Immature Granulocytes Count 0.040 X10^3/uL (0.0-0.0); Mean Corp Hgb Conc 32.4 g/dL (32-36); Mean Corpuscular Volume 94.7 fL (81-99); Mean Platelet Vol. 11.3 fl (6.2-12.0); NRBC Flagged by Analyzer 0 % (0-5); POSITIVE DIFFERENTIAL YES; Platelet Count 128 K/mm3 (150-450); RBC Distribution Width CV 13.6 % (11.6-14.6); RBC Distribution Width SD 47.1 fl (35.1-43.9); Red Blood Count 3.95 M/mm3 (4.2-5.4); White Blood Count 5.4 K/mm3 (4.4-11.0)
[2025-02-21 13:08] LABS: Anion Gap 10 (5-15); BUN 23 mg/dL (4-19); BUN/Creat Ratio 27.7 RATIO (10-20); Calcium,Total 9.6 mg/dL (7.6-11.0); Carbon Dioxide 26.4 mmol/L (21.0-32.0); Chloride 98 mmol/L (98-108); Glucose 143 mg/dL (70-99); Potassium 5.1 mmol/L (3.3-5.1); Pro- Brain NATRIURETIC PEPTIDE 5070 pg/mL (<=1800)
== END | disposition home or self-care (01) ==
LOC: LAB 11:17
PROVIDERS: PCP Family Medicine Geriatric Medicine; Referring Provider Nurse Practitioner Gerontology; Visit Provider Nurse Practitioner Gerontology
DX: R06.02 Shortness of breath (principal)
CPT/HCPCS: 36415; 71046; 80048; 83880; 85025

== ENCOUNTER → 2025-03-01 | Outpatient (CLI) | payer MEDICARE, SELFPAY ==
--- NOTE | 2025-03-01 11:23 | ST.MBS ---
Modified Barium Swallow Patient Information Study Date: 03/01/25 Study Time: 13:00 Direct Billable Minutes: 99 Total Minutes procedure & reportin Diagnosis: Dysphagia R13.10 Referring Physician: Romie Landeros Chi Reason for Referral: Assess swallow function, assess risk for aspiration, and determine recommendations for least restrictive diet textures and compensatory strategies to improve safety of swallow. Medical History: PMH: Nausea, Essential tremor, Lumbar spinal stenosis, Gastritis, Loss of hearing, Wears glasses, Cancer, Thyroid disease, High cholesterol, GERD, Non-smoker, SOB on exertion Gastric reflux, HTN, CHF, Melanoma, A fib, History of breast cancer, Atrial dysrhythmia, Ventricular tachycardia, HLD, Esophageal reflux. ?See EMR for full PMH. Surgical Hx: History of EGD, Presence of double chamber implantable cardioverter-defibrillator, History of tonsillectomy and adenoidectomy. See EMR for full Surgical Hx. Pt is familiar to this FOREIGN SERVICE TEACHER from recent admission to [facility] 01/31/2025 for worsening SOB and leg swelling. Pt was referred for ST consult due to swallowing difficulty, which the patient informed the dirt supervisor of. Pt provided FOREIGN SERVICE TEACHER information re: hx of esophageal dysphagia, pt following w/ Dr. Gould. EGD 08/06/24 Esophageal mucosal variant. Biopsied. 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 This could be secondary to advanced age along with medication induced injury. Chronic gastritis. No gross lesions in the duodenal bulb. Pt reported during hospitalization that she was having bloating and early satiety, as well as difficulty swallowing pills and meats. BSE 02/02/2025 recommended pt for regular textures / thin liquids (moisten any dry textures) w/ recommendation of OP MBSS at discharge due to pt reporting increased difficulty swallowing certain foods. Of note, pt had MBSS on 11/16/2018 - Swallow function grossly within normal limits as compared to same age peers. Regular textures / Thin liquids recommended. Pt is following up w/ ST recommendations for OP MBSS from acute stay. Daughter, Renita, accompanied her and stated that swallowing has been going well at home. Occ sensation of esophageal retention, but no coughing or regurgitation w/ po intake. If pills feel caught, she takes applesauce to clear the pills down per daughter report. Current Diet Ordered: Regular textures / Thin liquids Mental Status: WNL Respiratory Status: Oxygenating on Room Air Penetration-Aspiration Scale Penetration-Aspiration Scale: OBJECTIVE ASSESSMENT OF SWALLOW FUNCTION (QUANTITATIVE ? PER TRIAL): PENETRATION / ASPIRATION SCALE (TONEY): 1 = does not enter airway 2 = enters airway/above vocal folds/ejected 3 = enters airway/above vocal folds/not ejected 4 = enters airway/contacts vocal folds/ejected 5 = enters airway/contacts vocal folds/not ejected 6 = enters airway/below vocal folds/ejected 7 = enters airway/below vocal folds/not ejected despite effort 8 = enters airway/below vocal folds/no effort VIDEOFLOROSCOPIC SCALE SCORE (TONEY): Grade I = aspiration of material that has penetrated into the laryngeal vestibule, intact cough reflex Grade II = aspiration < 10 % of the bolus, intact cough reflex Grade III = aspiration of < 10 % of the bolus, reduced cough reflex or aspiration of > 10 % of the bolus, intact cough reflex Grade IV = aspiration of > 10 % of the bolus, reduced cough reflex Penetration-Aspiration Scale Score Thin Liquid via teaspoon: Result: 1= does not enter airway Thin Liquid via teaspoon Trial 2: Result: 1= does not enter airway Thin Liquid via small single sip: cup: Result: 1= does not enter airway Thin Liquid via sequential sips: cup: Result: 1= does not enter airway Comment: Esophageal Screen - Retention of liquids in the esophagus w/ retrograde flow to the upper esophagus. Pudding via teaspoon: Result: 1= does not enter airway Comment: Esophageal Screen - Retention throughout the esophagus. Thin Liquid via single sip: straw: Result: 1= does not enter airway Comment: Esophageal Screen - Liquid wash X1 was ineffective in clearing pudding barium from the esophagus. 1/2 Cookie: Result: 1= does not enter airway Comment: Esophageal Screen - Retention in the middle and lower esophagus w/ retrograde flow. Liquid wash X2 cleared a majority of the cookie w/ a third liquid wash clearing additional cookie through the LES. Oral Phase Labial Seal: No Labial Escape Tongue Control During Bolus Hold: Cohesive bolus between tongue to palatal seal Bolus Preparation/Mastication: Slow prolonged chewing/mashing with complete recollection Bolus Transport/Lingual Motion: Slowed tongue motion Oral Residue: Residue collection on oral structures Pharyngeal Phase Initiation of Pharyngeal Swallow: Bolus head in valleculae Soft Palate Elevation: Trace column of contrast/air between soft palate and pharyngeal wall Laryngeal Elevation: Comp. Superior move thyroid cart w/comp. apprx arytenoid cart-epig pet Anterior Hyoid Excursion: Partial anterior movement Epiglottic Movement: Complete inversion Laryngeal Vestibule Closure at Height of Swallow: Complete; no air/contrast in laryngeal vestibule Pharyngeal Stripping Wave: Present - diminished Pharyngoesophageal Segment Opening: Parital distension and partial duration; parital obstruction of flow (trace retention of barium in the UES) Tongue Base Retraction: Narrow column of contrast between tongue base & post. pharyngeal wall Pharyngeal Residue: Collection of residue within or on pharyngeal structures Esophageal Phase Esophageal Clearance: Esophageal retention w/ retrograde flow below pharyngoesophageal seg. Diagnosis/Impression Diagnosis: Esophageal dysphagia R13.12; Presbyphagia Impression: Age-related changes in swallowing, including slowed mastication, slowed tongue movement, and mildly reduced pharyngeal motility; however, the oropharyngeal swallow function is overall WFL and the patient demonstrated a timely swallow, no laryngeal penetration or aspiration, and trace-mild oral and pharyngeal residues that mostly cleared w/ independent use of a second swallow as needed. The esophageal phase is marked by... -Retention of cookie and pudding in the esophagus. 2-3 liquid washes effectively cleared cookie retention. -Retention of sequential sips of thin liquids w/ retrograde flow to the upper esophagus. Recommendations Diet: Regular Textures (Moisten Dry Textures) and Thin Liquids Comment: Stop meal if sensation of retention or regurgitation despite liquid washes and resume meal at a later time. Compensatory Strategies: Small Bites, Small Sips, Slow Rate, Alternate bites/solids and sips/liquids (2-3 sips after each bite) and Sitting upright (During and 60min after meals) Recommend Repeat Modified Barium Swallow: No Need for Skilled Speech Therapy Services: No Recommended Referrals: GI Consult (GI POC is already established. Continue to follow w/ GI for management of dysphagia.) Education Completed: 1. Described result of evaluation. Status Active ST Patient: Active Contact Information [facility] Speech Therapy:: Natalie Casillas M.A. CCC-FOREIGN SERVICE TEACHER? Speech-Language Pathologist?? [facility] [address] [place] [address]? [email or web address]?? [phone]
--- NOTE | 2025-03-01 11:23 | ST.MBS ---
Modified Barium Swallow Patient Information Study Date: 03/01/25 Study Time: 13:00 Direct Billable Minutes: 99 Total Minutes procedure & reportin Diagnosis: Dysphagia R13.10 Referring Physician: Romie Landeros Chi Reason for Referral: Assess swallow function, assess risk for aspiration, and determine recommendations for least restrictive diet textures and compensatory strategies to improve safety of swallow. Medical History: PMH: Nausea, Essential tremor, Lumbar spinal stenosis, Gastritis, Loss of hearing, Wears glasses, Cancer, Thyroid disease, High cholesterol, GERD, Non-smoker, SOB on exertion Gastric reflux, HTN, CHF, Melanoma, A fib, History of breast cancer, Atrial dysrhythmia, Ventricular tachycardia, HLD, Esophageal reflux. ?See EMR for full PMH. Surgical Hx: History of EGD, Presence of double chamber implantable cardioverter-defibrillator, History of tonsillectomy and adenoidectomy. See EMR for full Surgical Hx. 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 Pt was referred for ST consult due to swallowing difficulty, which the patient informed the director of archives of. Pt provided [employer] information re: hx of esophageal dysphagia, pt following w/ Dr. Gould. EGD 08/06/24 Esophageal mucosal variant. Biopsied. 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 This could be secondary to advanced age along with medication induced injury. Chronic gastritis. No gross lesions in the duodenal bulb. Pt reported during hospitalization that she was having bloating and early satiety, as well as difficulty swallowing pills and meats. BSE 02/02/2025 recommended pt for regular textures / thin liquids (moisten any dry textures) w/ recommendation of OP MBSS at discharge due to pt reporting increased difficulty swallowing certain foods. Of note, pt had MBSS on 11/16/2018 - Swallow function grossly within normal limits as compared to same age peers. Regular textures / Thin liquids recommended. Pt is following up w/ ST recommendations for OP MBSS from acute stay. Daughter, Renita, accompanied her and stated that swallowing has been going well at home. Occ sensation of esophageal retention, but no coughing or regurgitation w/ po intake. If pills feel caught, she takes applesauce to clear the pills down per daughter report. Current Diet Ordered: Regular textures / Thin liquids Mental Status: WNL Respiratory Status: Oxygenating on Room Air Penetration-Aspiration Scale Penetration-Aspiration Scale: OBJECTIVE ASSESSMENT OF SWALLOW FUNCTION (QUANTITATIVE ? PER TRIAL): PENETRATION / ASPIRATION SCALE (TONEY): 1 = does not enter airway 2 = enters airway/above vocal folds/ejected 3 = enters airway/above vocal folds/not ejected 4 = enters airway/contacts vocal folds/ejected 5 = enters airway/contacts vocal folds/not ejected 6 = enters airway/below vocal folds/ejected 7 = enters airway/below vocal folds/not ejected despite effort 8 = enters airway/below vocal folds/no effort VIDEOFLOROSCOPIC SCALE SCORE (TONEY): Grade I = aspiration of material that has penetrated into the laryngeal vestibule, intact cough reflex Grade II = aspiration < 10 % of the bolus, intact cough reflex Grade III = aspiration of < 10 % of the bolus, reduced cough reflex or aspiration of > 10 % of the bolus, intact cough reflex Grade IV = aspiration of > 10 % of the bolus, reduced cough reflex Penetration-Aspiration Scale Score Thin Liquid via teaspoon: Result: 1= does not enter airway Thin Liquid via teaspoon Trial 2: Result: 1= does not enter airway Thin Liquid via small single sip: cup: Result: 1= does not enter airway Thin Liquid via sequential sips: cup: Result: 1= does not enter airway Comment: Esophageal Screen - Retention of liquids in the esophagus w/ retrograde flow to the upper esophagus. Pudding via teaspoon: Result: 1= does not enter airway Comment: Esophageal Screen - Retention throughout the esophagus. Thin Liquid via single sip: straw: Result: 1= does not enter airway Comment: Esophageal Screen - Liquid wash X1 was ineffective in clearing pudding barium from the esophagus. 1/2 Cookie: Result: 1= does not enter airway Comment: Esophageal Screen - Retention in the middle and lower esophagus w/ retrograde flow. Liquid wash X2 cleared a majority of the cookie w/ a third liquid wash clearing additional cookie through the LES. Oral Phase Labial Seal: No Labial Escape Tongue Control During Bolus Hold: Cohesive bolus between tongue to palatal seal Bolus Preparation/Mastication: Slow prolonged chewing/mashing with complete recollection Bolus Transport/Lingual Motion: Slowed tongue motion Oral Residue: Residue collection on oral structures Pharyngeal Phase Initiation of Pharyngeal Swallow: Bolus head in valleculae Soft Palate Elevation: Trace column of contrast/air between soft palate and pharyngeal wall Laryngeal Elevation: Comp. Superior move thyroid cart w/comp. apprx arytenoid cart-epig pet Anterior Hyoid Excursion: Partial anterior movement Epiglottic Movement: Complete inversion Laryngeal Vestibule Closure at Height of Swallow: Complete; no air/contrast in laryngeal vestibule Pharyngeal Stripping Wave: Present - diminished Pharyngoesophageal Segment Opening: Parital distension and partial duration; parital obstruction of flow (trace retention of barium in the UES) Tongue Base Retraction: Narrow column of contrast between tongue base & post. pharyngeal wall Pharyngeal Residue: Collection of residue within or on pharyngeal structures Esophageal Phase Esophageal Clearance: Esophageal retention w/ retrograde flow below pharyngoesophageal seg. Diagnosis/Impression Diagnosis: Esophageal dysphagia R13.12; Presbyphagia Impression: Age-related changes in swallowing, including slowed mastication, slowed tongue movement, and mildly reduced pharyngeal motility; however, the oropharyngeal swallow function is overall WFL and the patient demonstrated a timely swallow, no laryngeal penetration or aspiration, and trace-mild oral and pharyngeal residues that mostly cleared w/ independent use of a second swallow as needed. The esophageal phase is marked by... -Retention of cookie and pudding in the esophagus. 2-3 liquid washes effectively cleared cookie retention. -Retention of sequential sips of thin liquids w/ retrograde flow to the upper esophagus. Recommendations Diet: Regular Textures (Moisten Dry Textures) and Thin Liquids Comment: Stop meal if sensation of retention or regurgitation despite liquid washes and resume meal at a later time. Compensatory Strategies: Small Bites, Small Sips, Slow Rate, Alternate bites/solids and sips/liquids (2-3 sips after each bite) and Sitting upright (During and 60min after meals) Recommend Repeat Modified Barium Swallow: No Need for Skilled Speech Therapy Services: No Recommended Referrals: GI Consult (GI POC is already established. Continue to follow w/ GI for management of dysphagia.) Education Completed: 1. Described result of evaluation. Status Active ST Patient: Active Contact Information [facility]:: Natalie Casillas M.A. CCC-BACKHAUL DRIVER? Speech-Language Pathologist?? [facility] [address] [place] [address]? [email or web address]?? [phone]
== END | disposition home or self-care (01) ==
LOC: RAD 10:18
PROVIDERS: PCP Family Medicine Geriatric Medicine; Referring Provider Family Medicine Geriatric Medicine; Visit Provider Family Medicine Geriatric Medicine
DX: R13.10 Dysphagia, unspecified (principal)
CPT/HCPCS: 74230; 92611

== ENCOUNTER 2025-03-25 10:08 | Outpatient (RCR) | payer MEDICARE, SELFPAY ==
[2025-03-25 11:33] LABS: Anion Gap 12 (5-15); BUN 27 mg/dL (4-19); BUN/Creat Ratio 28.0 RATIO (10-20); Calcium,Total 9.3 mg/dL (7.6-11.0); Carbon Dioxide 28.6 mmol/L (21.0-32.0); Chloride 92 mmol/L (98-108); Glucose 159 mg/dL (70-99); Potassium 4.0 mmol/L (3.3-5.1)
== END 2025-03-25 18:00 | disposition home or self-care (01) ==
LOC: HHLAB 10:08
PROVIDERS: PCP Family Medicine Geriatric Medicine; Visit Provider Family Medicine Geriatric Medicine
DX: I11.0 Hypertensive heart disease with heart failure (principal)
CPT/HCPCS: 80048

== ENCOUNTER 2025-05-23 14:12 | Outpatient (RCR) | payer MEDICARE, SELFPAY ==
[2025-05-23 14:45] LABS: Hematocrit 40.5 % (37-47); Hemoglobin 13.2 g/dL (12.0-15.0); Immature Granulocytes Count 0.030 X10^3/uL (0.0-0.0); Mean Corp Hgb Conc 32.6 g/dL (32-36); Mean Corpuscular Volume 94.8 fL (81-99); Mean Platelet Vol. 11.0 fl (6.2-12.0); NRBC Flagged by Analyzer 0 % (0-5); Platelet Count 167 K/mm3 (150-450); RBC Distribution Width CV 14.6 % (11.6-14.6); RBC Distribution Width SD 51.5 fl (35.1-43.9); Red Blood Count 4.27 M/mm3 (4.2-5.4); White Blood Count 6.5 K/mm3 (4.4-11.0)
[2025-05-23 14:55] LABS: Prothrombin Time (Protime)PT. 30.4 SECONDS (11.7-14.9)
[2025-05-23 15:22] LABS: Anion Gap 10 (5-15); BUN 29 mg/dL (4-19); BUN/Creat Ratio 29.7 RATIO (10-20); Calcium,Total 9.2 mg/dL (7.6-11.0); Carbon Dioxide 26.3 mmol/L (21.0-32.0); Chloride 101 mmol/L (98-108); Glucose 140 mg/dL (70-99); Potassium 4.8 mmol/L (3.3-5.1); Pro- Brain NATRIURETIC PEPTIDE 5714 pg/mL (<=1800)
== END 2025-05-23 18:00 | disposition home or self-care (01) ==
LOC: LAB 14:12
PROVIDERS: Family Provider Family Medicine Geriatric Medicine; PCP Family Medicine Geriatric Medicine; Referring Provider Family Medicine Geriatric Medicine; Visit Provider Nurse Practitioner Gerontology
DX: Z79.01 Long term (current) use of anticoagulants; R06.02 Shortness of breath; R53.83 Other fatigue
CPT/HCPCS: 36415; 80048; 83880; 84443; 85025; 85610

== ENCOUNTER → 2025-05-23 | Outpatient (CLI) | payer MEDICARE, SELFPAY ==
--- NOTE | 2025-05-23 14:07 | RAD_ITS ---
PROCEDURE: CHEST PA AND LATERAL 05/23/2025 REASON FOR EXAM: SOB TECHNIQUE: Procedure Code: RADCXR Modality: DX Procedure: CHEST PA AND LATERAL COMPARISON: Two-view chest, 02/21/2025. FINDINGS: There is cardiomegaly and pulmonary venous hypertension without congestive heart failure. There is a right pleural effusion. There is right basilar atelectasis. The lungs are otherwise clear. There is calcific vascular disease of the thoracic aorta. Status post CABG surgery. There is a multi lead pacemaker cardioverter. Status post left mastectomy with a breast prosthesis. The upper abdominal bowel gas pattern is normal. Status post median sternotomy. There is dextroscoliosis of the thoracic spine. RAD/Chest PA and Lateral IMPRESSION: Right pleural effusion with right basilar atelectasis. Other findings as noted . Reading Location: [id number]
== END | disposition home or self-care (01) ==
LOC: RAD 13:59
PROVIDERS: PCP Family Medicine Geriatric Medicine; Referring Provider Nurse Practitioner Gerontology; Visit Provider Nurse Practitioner Gerontology
DX: R06.02 Shortness of breath (principal)
CPT/HCPCS: 71046

== ENCOUNTER 2025-07-01 14:09 | Outpatient (RCR) | payer MEDICARE, SELFPAY ==
[2025-07-05 13:44] LABS: INR Fingerstick 3.2
== END 2025-07-16 18:00 | disposition home or self-care (01) ==
LOC: MTLAB 14:09
PROVIDERS: Family Provider Family Medicine Geriatric Medicine; PCP Family Medicine Geriatric Medicine; Referring Provider Family Medicine Geriatric Medicine; Visit Provider Nurse Practitioner Gerontology
DX: Z79.01 Long term (current) use of anticoagulants (principal)
CPT/HCPCS: 36416; 85610

== ENCOUNTER 2025-07-22 14:55 | Outpatient (RCR) | payer MEDICARE, SELFPAY ==
[2025-07-22 16:17] LABS: INR Fingerstick 3.7
== END 2025-07-22 18:00 | disposition home or self-care (01) ==
LOC: LAB 14:55
PROVIDERS: Family Provider Family Medicine Geriatric Medicine; PCP Family Medicine Geriatric Medicine; Referring Provider Family Medicine Geriatric Medicine; Visit Provider Nurse Practitioner Gerontology
DX: Z79.01 Long term (current) use of anticoagulants
CPT/HCPCS: 36416; 85610

== ENCOUNTER → 2025-07-26 | Outpatient (CLI) | payer MEDICARE, SELFPAY ==
[2025-07-26 14:14] LABS: Hematocrit 35.0 % (37-47); Hemoglobin 11.3 g/dL (12.0-15.0); Immature Granulocytes Count 0.010 X10^3/uL (0.0-0.0); Mean Corp Hgb Conc 32.3 g/dL (32-36); Mean Corpuscular Volume 97.5 fL (81-99); Mean Platelet Vol. 10.9 fl (6.2-12.0); NRBC Flagged by Analyzer 0 % (0-5); POSITIVE DIFFERENTIAL YES; Platelet Count 126 K/mm3 (150-450); RBC Distribution Width CV 14.5 % (11.6-14.6); RBC Distribution Width SD 52.1 fl (35.1-43.9); Red Blood Count 3.59 M/mm3 (4.2-5.4); White Blood Count 5.3 K/mm3 (4.4-11.0)
[2025-07-26 15:06] LABS: AST(SGOT) 31 U/L (<=31); Alanine Aminotransfer ALT/SGPT 43 U/L (<=34); Albumin, Serum 4.2 g/dL (3.4-4.8); Alkaline Phosphatase 140 U/L (35-104); Anion Gap 9 (5-15); BUN 51 mg/dL (4-19); BUN/Creat Ratio 54.2 RATIO (10-20); Calcium,Total 9.2 mg/dL (7.6-11.0); Carbon Dioxide 27.8 mmol/L (21.0-32.0); Chloride 105 mmol/L (98-108); Cholesterol 170 mg/dL (<=200); Globulin 2.1 g/dL (2.2-4.2); Glucose 196 mg/dL (70-99); Low Density Lipoprotein Calc. 77 mg/dL; Potassium 4.3 mmol/L (3.3-5.1); Triglycerides 91 mg/dL; Very Low Density Lipoprotein 18 mg/dL (5-40); Vitamin D,25 Hydroxy 95.3 ng/mL (30-100); cholesterol:hdl ratio screen 2.22
[2025-07-26 21:59] LABS: Xtra Tube Kwok EXTRA TUBE
== END | disposition home or self-care (01) ==
PROVIDERS: PCP Family Medicine Geriatric Medicine; Visit Provider Family Medicine Geriatric Medicine
DX: E03.9 Hypothyroidism, unspecified (principal); E55.9 Vitamin D deficiency, unspecified; E78.5 Hyperlipidemia, unspecified; I10 Essential (primary) hypertension; R73.9 Hyperglycemia, unspecified
CPT/HCPCS: 36415; 80053; 80061; 82306; 83036; 84443; 85025